=== PATIENT | male | born 1955 | race Caucasian/White ===

== ENCOUNTER → 2019-05-16 10:42 | Outpatient (BNVA) | payer MEDICARE, MEDICAID, SELFPAY | PROVIDERS: PCP Nurse Practitioner; Visit Provider Nurse Practitioner Family | DX: R06.00 Dyspnea, unspecified (principal); I51.7 Cardiomegaly | CPT/HCPCS: 71046 ==

== ENCOUNTER 2019-06-03 06:05 | Day surgery (SDC) | payer MEDICARE, MEDICAID, SELFPAY ==
--- NOTE | 2019-06-02 13:21 | P.ANES_ITS ---
Pre-Anesthetic Assessment Pre-Anesthetic Assessment: Height/Weight: Height 1.75 m Weight 176.447 kg Preop Diagnosis: Recurrent chest pain Proposed Procedure: Operation Date: 06/03/19 07:45 Proposed Procedures p EGD 49025 K21.9(Not Applicable) - Solomon Monreal MD Familial anesthetic complications: No trouble Social: Social History: No alcohol and No tobacco Exam: Pre-Anes Outpt Exam: alert, oriented x 3, clear to auscultation bilaterally and regular rate & rhythm Airway: Cervical ROM: WNL (fusion of cervical vertebrae C3-4) MP: 4 Dentition: Chipped Additional comments: missing Pulmonary: Pulmonary: Sleep apnea (CPAP) and SOB CV/HEM: CV/HEM: Arrythmia (atrial fibrillation (off eliquis since last sunday)) and HTN Comments: Cardiac work up todate has been negative : : Chronic renal failure Comments: stage III kidney disease Hepatic: Comments: fatty liver GI: Comments: esophageal ulcer hx Metabolic: Metabolic: DM and Morbid obesity Comments: thyroid mass removal in Musc/skel: Musc/skel: Lower Back Pain Neuropsych: Neuropsych: None reported Anesthetic Plan: ASA status: III Anesthesia: MAC Risk of > 500 ml blood loss (7ml/kg in children): No Other Pertinent 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
[2019-06-03] VITALS (7 sets, daily range): BP systolic 97–140; BP diastolic 76–92; PULSE 81–110; RESP 16–21; TEMP 36.4–37.2; O2SAT 94–99
[2019-06-03] MEDS: sodium chloride 0.9% 1,000 ML 30 ML IV (07:06)
--- NOTE | 2019-06-03 08:03 | PM.HPUD ---
H&P update H&P Update: DATE OF SURGERY/PROCEDURE: 06/03/19 DATE H&P PERFORMED: 05/26/19 H&P UPDATE INFORMATION: H&P completed within last 30 days and No changes to prior documentation PREOP DIAGNOSIS: Chest pain PLANNED PROCEDURE: Operation Date: 06/03/19 07:45 Proposed Procedures p EGD 77762 K21.9(Not Applicable) - Solomon Monreal MD Full H&P Medications/Allergies: Current Medications: Current Medications Generic Name Dose Route Start Last Admin Trade Name Freq PRN Reason Stop Dose Admin Sodium Chloride 1,000 mls @ 30 ml s/hr 06/03/19 06:15 06/03/19 07:06 Sodium Chloride 0.9% IV 06/04/19 06:14 30 mls/hr .Q24H NORA Administration Perinent History: Medical/Surgical History: Medical History (Updated 05/22/19 @ 20:01 by Orlando Armstrong MD) Atrial fibrillation (Acute) Diastolic heart failure (Acute) GERD (gastroesophageal reflux disease) (Acute) HTN (hypertension) (Acute) Renal insufficiency (Acute) Family History: Family History (Updated 05/26/19 @ 09:27 by MARIA VICTORIA Jc) Father Cancer Prostate Hypertension Hypercholesterolemia Heart disease Mother Hypertension Hypercholesterolemia Anesthesia complication Daughter Anesthesia complication Denies family history of Bleeding disorder Social History: Social History Smoking and tobacco status: never smoked Alcohol intake: former Lives independently: Yes Household members: spouse Marital status: Current occupational status: disabled History of recent travel: No
--- NOTE | 2019-06-03 08:35 | P.OP_ITS ---
Operative Report Date of procedure: 06/05/19 Pre-op Diagnosis: Chest pain Post-op diagnosis: other (Gastric polyps and gastritis/GERD) Procedure Done: Diagnostic EGD with biopsies Specimens removed/disposition: Gastric polyps Surgeon: Solomon Monreal Senior Mechanical Estimator: Aislinn Devi Anesthesia: General (SHAWN Romo) Estimated blood loss (mL): 2 Complications: No immediate complications Condition: stable Disposition: same day Brief History: This is a pleasant 63 years old gentleman morbidly obese with multiple medical comorbidities, originally referred to my office for bariatric s urgery, patient has been having recurrent chest pain and have exhausted most of the cardiac work-up, was seen at the office last visit to evaluate for potential EGD. Plan of care; After thorough history and physical examination and reviewing the chart, plan to perform a diagnostic esophagogastroduodenoscopy and possible biopsy in the operating room due patient's medical comorbioddities including morbid Obesity and potential airway compromise. Informed consent per chart were,Indications, risks, benefits, and alternatives were all discussed with the patient and did agree to proceed. Procedure: Patient was identified in the holding area, was taken to the OR placed first in supine position, timeout was done verifying the patient's name, date of , and procedure, all were in agreement. Patient was intubated by the MASSEUR/MASSEUSE, patient was placed in left lateral position after a bite block was placed in his mouth, started by introducing the EGD via the mouth under direct visualization, the patient was continuously monitored via used building materials yard worker, I was able to assess the esophagus stomach and duodenum till the second part, mild GERD was noticed at the GE junction GE junction at 45 cm from the incisors, gastroesophageal junction polyp was noticed biopsied but was not retrieved and 2 more polyps were noticed at the body of the stomach they were biopsied and retrieved The scope was retrieved under direct visualization and gas was deflated Patient was then extubated and transferred to recovery area in stable condition Patient tolerated the procedure well and was taken to the recovery area I was present for the whole entire procedure
--- NOTE | 2019-06-03 09:18 | SUR.PHASEI ---
0837- RECEIVED PATIENT IN PACU FROM OR VIA G[facility]OLA. RESP ARE EVEN AND NONLABORED WITH NOTED ACCESSORY MUSCLE USE AND RETRACTIONS. SIMPLE MASK APPLIED AT 6LPM, SAT 98%. HE IS AWAKE AND ALERT, FOLLOWS COMMANDS. HE DENIES PAIN OR NAUSEA. 0858- TRANSFERRED PATIENT FROM PACU TO OPS VIA GURNEY. RESP ARE EVEN AND NONLABORED. SAT 95% WITH 2L/NC, MINIMAL ACCESSORY MUSCLE USE, WHICH IS NORMAL FOR PATIENT. HE DENIES PAIN OR NAUSEA. HE CONTINUES TO EXPECTORATE CLEAR FROTHY SPUTUM. TRANSITION OF CARE TO KATLIN BERMAN
== END 2019-06-03 10:05 | disposition home or self-care (01) ==
PROVIDERS: Family Provider Nurse Practitioner Family; PCP Nurse Practitioner Family; Visit Provider Surgery
PROC: 0DJ08ZZ Inspection of Upper Intestinal Tract, Via Natural or Artificial Opening Endoscopic (ICD-10-PCS; CPT 43235; principal; 2019-06-03 07:45)
DX: R07.9 Chest pain, unspecified (principal); D13.1 Benign neoplasm of stomach; K29.70 Gastritis, unspecified, without bleeding; K21.9 Gastro-esophageal reflux disease without esophagitis; G47.30 Sleep apnea, unspecified; I48.91 Unspecified atrial fibrillation; Z79.01 Long term (current) use of anticoagulants; I10 Essential (primary) hypertension; E11.9 Type 2 diabetes mellitus without complications; E66.01 Morbid (severe) obesity due to excess calories; Z68.43 Body mass index [BMI] 50.0-59.9, adult
CPT/HCPCS: 43239; 12345; 88305; 96365; J0330; J3010; J3490; J7030

== ENCOUNTER 2019-06-17 16:35 | Inpatient (IN) | payer MEDICARE, MEDICAID, SELFPAY ==
[2019-06-17 16:49] VITALS: BMI 57.9
[2019-06-17 17:24] LABS: Glucose Point of Care 152 mg/dL (70-110)
--- NOTE | 2019-06-17 18:45 | ECG_ITS ---
Measurements Intervals [place] Rate: 89 P: IN: 0 QRS: -63 QRSD: 112 T: 62 QT: 362 QTc: 441 ATRIAL FIBRILLATION INCOMPLETE RIGHT BUNDLE BRANCH BLOCK [90+ ms QRS DURATION, TERMINAL R IN V1/V2, 40+ ms S IN I/aVL/V4/V5/V6] LEFT ANTERIOR FASCICULAR BLOCK [QRS AXIS <= -45, QR IN I, RS IN II] Compared to ECG 10/06/2017 05:41:11 Incomplete right bundle-branch block now present Sinus bradycardia no longer present Electronically Signed On 06-17-2019 20:03:24 MANAGER APPLE by Robb Banegas M.D. [email or web address]
--- NOTE | 2019-06-17 18:58 | PM.HP ---
Providers/Chief Complaint Admitting Physician: Orlando Armstrong MD Primary Care Provider: Lilian Mcintyre Chief Complaint: UNSTABLE ANGINA, ACUTE RENAL FAILURE, AFIB-RVR History of Present Illness Mauro Solis is a 63 year old male , Hypertension hyperlipidemia chronic atrial fibrillation rate controlled, diastolic dysfunction who has been suffering from chest pain for the past one year off-and-on basis. His stress test few months ago was negative. His medicine were optimized. He was treated for GERD and gastritis despite of that his symptoms are getting worse. Yesterday he presented to my clinic with worsening of chest pain upon mild to moderate exertion and shortness of breath. He has been taking nitroglycerin 2-3 times a day. He is now also experiencing chest pain radiating to both arm at rest. Heart rate is within normal limits of 70s to 80s. He continues to be in A. fib.He has history of chronic kidney disease stage III. Baseline creatinine is around 1.5. Yesterday we discussed regarding repeating the stress test but patient is not willing to repeat NIDD with it we have maximize medical management so far. I would like to proceed with angiogram now. I will admit him to the hospital directly. I will check his chem 7. He will be given IV fluid overnight anticoagulation will be on hold for possible angiogram tomorrow for worsening of angina. Review of Systems Const: Denies: fever or chills Card: Reports: chest pain Resp: Reports: shortness of breath GI: Denies: abdominal pain, nausea or vomiting Neuro: Denies: headache or numbness in extremities Medications/Allergies Allergies Allergy/AdvReac Type Severity Reaction Status Date / Time linaclotide [From Linzess] Allergy Unknown Hypertension; Verified 06/13/19 11:21 Afib metformin Allergy Unknown ADR-Diarrhe Verified 06/13/19 11:21 a naproxen Allergy Unknown Affects Verified 06/13/19 11:21 kidney fuctions Kkaqudx-Aeg-Aoi Reductase Allergy Unknown Severe Verified 06/13/19 11:21 Inhibitor Muscle Pain Sulfa (Sulfonamide Allergy Unknown ADR-Itching Verified 06/13/19 11:21 Antibiotics) baclofen Allergy Affects Verified 06/13/19 11:21 kidney fuctions NSAIDS (Non-Steroidal Allergy Affects Verified 06/13/19 11:21 Anti-Inflamma Kidney functions benzonatate AdvReac Unknown Diarrhea Verified 06/13/19 11:21 PFSH Acute PFSH: Statuses (acute, chronic, etc) shown below reflect problem list status as previously entered and may not be historically accurate Medical History Atrial fibrillation (Acute) Diastolic heart failure (Acute) GERD (gastroesophageal reflux disease) (Acute) HTN (hypertension) (Acute) Renal insufficiency (Acute) Surgical History History of esophagogastroduodenoscopy (EGD) (Acute) Family History Father Cancer Prostate Hypertension Hypercholesterolemia Heart disease Mother Hypertension Hypercholesterolemia Anesthesia complication Daughter Anesthesia complication Denies family history of Bleeding disorder Social History Smoking and tobacco status: never smoked Alcohol intake: former Lives independently: Yes Household members: spouse Marital status: Current occupational status: disabled History of recent travel: No Vitals/I&O/Wt Weight last 48 hrs Weight 392 lb 6.4 oz Physical Exam Narrative: EXAM NARRATIVE: GENERAL: Patient is alert, awake and oriented x3. Patient is complaining of chest pain NECK: No jugular vein distension. HEENT: No cyanosis. No icterus. No pallor. HEART: Regularly irregular S1 and S2. No murmur, rub or gallop. LUNGS: Clear to auscultate bilaterally. ABDOMEN: Soft, nontender and nondistended. Positive bowel sounds. No guarding, rebound or tenderness. CENTRAL NERVOUS SYSTEM: Grossly nonfocal. EXTREMITIES: Lower extremities with 1+ edema bilaterally. Pulses palpable in the lower extremities, both dorsalis pedis and posterior tibial. Data : 06/17/19 19:18 06/17/19 19:18 EKG 1: My Interpretation: ATRIAL FIBRILLATION INCOMPLETE RIGHT BUNDLE BRANCH BLOCK [90+ ms QRS DURATION, TERMINAL R IN V1/V2, 40+ ms S IN I/aVL/V4/V5/V6] LEFT ANTERIOR FASCICULAR BLOCK [QRS AXIS <= -45, QR IN I, RS IN II] Compared to ECG 10/06/2017 05:41:11 Incomplete right bundle-branch block now present Sinus bradycardia no longer present A&P Assessment and plan (1) Chest pain: Patient is moderate risk of Obstructive coronary disease. He has chest pain going on for last many months. In the past he has a negative stress test. He was treated for GERD and gastritis. He was treated for muscle spasm. His medications were optimized in terms of beta nessa and isosorbide mononitrate. Despite of all these millimeters his chest pains are getting worse they are getting relief with nitroglycerin sublingual. He has been taking nitroglycerin 2-3 times a day. We therefore decided to proceed with coronary angiogram. Patient has been explained all risks benefits and alternative for the procedure including contrast induced nephropathy. His baseline creatinine is 1.5. He will be admitted to the hospital for IV fluid tonight. Status: Acute Qualifiers: Chest pain type: unspecified Qualified Code(s): R07.9 - Chest pain, unspecified Code(s): R07.9 - Chest pain, unspecified (2) GERD (gastroesophageal reflux disease): Continue Protonix Status: Acute Code(s): K21.9 - Gastro-esophageal reflux disease without esophagitis (3) Renal insufficiency: Patient baseline creatinine is 1.5. IV fluid will be started tonight 10-12 hour before coronary angiogram. Patient has been discussed in detail regards contrast induced nephropathy 20% chance of dialysis transient and permanent. He would like to proceed with angiogram since he is hurting in the chest and scared that he is going to end up in a heart attack. Status: Acute Code(s): N28.9 - Disorder of kidney and ureter, unspecified (4) Diastolic heart failure: Appeared to be well compensated continue medicine Status: Acute Code(s): I50.30 - Unspecified diastolic (congestive) heart failure (5) HTN (hypertension): Reasonably well controlled Status: Acute Code(s): I10 - Essential (primary) hypertension (6) Atrial fibrillation: Patient is rate controlled on anticoagulation we will hold Eliquis I will give him Lovenox in the hospital Status: Acute Code(s): I48.91 - Unspecified atrial fibrillation Attestations Medical Necessity Statement*: I'm expecting his stay to cross more than 2 midnights Coding Level of Care Code New Pt Acute Hand Quilter [facility] Patient Type New History Detailed Exam Detailed Medical Decision Making Moderate Complexity Diagnoses Chest pain R07.9 Chest pain type: unspecified GERD (gastroesophageal reflux disease) K21.9 Renal insufficiency N28.9 Diastolic heart failure I50.30 HTN (hypertension) I10 Atrial fibrillation I48.91
[2019-06-17] MEDS: sodium chloride 0.9% 1,000 ML 100 ML IV (19:17)
[2019-06-17] MEDS: nitroglycerin 0.4 mg sublingual Tablet SUBLINGUAL (19:18)
[2019-06-17 19:20] VITALS: BP 132/82; PULSE 79; RESP 22; TEMP 36.8; O2SAT 94
[2019-06-17 19:24] VITALS: BP 127/79; PULSE 76; RESP 20; TEMP 36.4; O2SAT 94
[2019-06-17 19:37] LABS: Basophils # 0.1 10^3/uL (0.0-0.1); Basophils % 0.5 %; Eosinophils # 0.1 10^3/uL (0.0-0.8); Hematocrit 38.7 % (42.0-52.0); Hemoglobin 12.6 g/dL (11.7-16.6); Lymphocytes # 2.2 10^3/uL (0.8-4.8); Lymphocytes % 23.8 %; Mean Corpuscular HGB Conc 32.6 g/dL (30.0-36.0); Mean Corpuscular Hemoglobin 29.3 pg (28.0-34.0); Mean Platelet Volume 9.9 fL (7.4-10.4); Monocytes # 0.6 10^3/uL (0.2-0.9); Monocytes % 6.6 %; Neutrophils # 6.3 10^3/uL (1.8-7.7); Neutrophils % 67.6 %; Nucleated Red Blood Cells % 0 %; Platelet Count 222 10^3/cmm (130-400); White Blood Count 9.4 10^3/uL (4.0-10.0)
[2019-06-17 19:52] LABS: Anion Gap 19.9 (5-19); Blood Urea Nitrogen 23 mg/dL (8-23); Calcium 9.8 mg/dL (8.5-10.5); Carbon Dioxide 23 mmol/L (22-29); Chloride 99 mmol/L (98-107); Glomerular Filtration Rate 51.2 mL/min (90-130); Glucose 208 mg/dL (65-115); Osmolality Calculated 289 mOsm/kg (285-295); Potassium 3.9 mmol/L (3.5-5.1); Sodium 138 mmol/L (136-145)
[2019-06-17 19:57] LABS: INR 1.13 (0.8-1.2)
[2019-06-17 19:58] LABS: Partial Thromboplastin Time 33.5 SECONDS (23.9-36.7)
[2019-06-17] MEDS: enoxaparin 100 mg/mL Syringe 150 MG SUBCUT (20:41)
[2019-06-17] MEDS: nitroglycerin 1 gm/inch oint Pkt 1 INCH TOPICAL (20:41)
--- NOTE | 2019-06-17 21:51 | PC.NURSE ---
pt states that he has a chronic pressure ulcer on his buttocks that he did not acquire while in the hospital. pt refused me to assess it.
[2019-06-17 23:32] VITALS: PULSE 86; RESP 16; O2SAT 94
[2019-06-18] VITALS (27 sets, daily range): BP systolic 98–163; BP diastolic 60–117; PULSE 82–105; RESP 14–36; TEMP 36.9–37.2; O2SAT 93–96
[2019-06-18] MEDS: sodium chloride 0.9% 1,000 ML 100 ML IV (06:16)
[2019-06-18] MEDS: metoprolol tartrate 25 mg Tablet 12.5 MG PO (06:16)
[2019-06-18] MEDS: nitroglycerin 1 gm/inch oint Pkt 1 INCH TOPICAL (07:43)
[2019-06-18] MEDS: albuterol 8 gm MDI 2 PUFF INHALATION (08:06)
[2019-06-18 08:53] LABS: Blood Urea Nitrogen 20 mg/dL (8-23); Calcium 9.5 mg/dL (8.5-10.5); Carbon Dioxide 25 mmol/L (22-29); Chloride 101 mmol/L (98-107); Glomerular Filtration Rate 51.2 mL/min (90-130); Glucose 195 mg/dL (65-115); Osmolality Calculated 290 mOsm/kg (285-295); Sodium 139 mmol/L (136-145)
[2019-06-18] MEDS: clopidogrel 300 mg Tablet 600 MG PO (09:16)
--- NOTE | 2019-06-18 12:33 | PC.NURSE ---
PATIENT TAKEN TO PAINTER HELPER SPRAY AT THIS TIME.
--- NOTE | 2019-06-18 12:34 | XACV_ITS ---
Exam Room: [facility] Ht: 175 cm Wt: 87 kg BSA: 2.08 m2 Gender: Male : 1955 Any Known Allergies: Other Exam Priority: Routine Procedure(s): Procedure Description: Diagnostic procedure Procedure Description: Coronary Angiography Diagnostic Cath Status: Elective Diagnostic Findings LM has 0% stenosis. CX has 0% stenosis. RCA has 0% stenosis. pLAD to mLAD: Mild 20% stenosis, JAYNE: 3 flow. Coronary angiography shows right dominance. PCI Status: Elective PCI Indication: New Onset Angina <= 2 months Conclusions There is mild coronary artery disease with one vessel disease. Reason for consultation: Worsening of heart failure, worsening of shortness of breath and chest pain despite of optimization of medical regimen. Recommendations Continue current medical management and risk factor modification. Diagnostic RX Recommendation: medical therapy and/or counseling Clinical Evaluation EBL: 5mL-10mL Procedural Details Procedure Consent Obtained. Pre-Procedure Time Out. Identified patient by full name and date of as verbalized by the patient/guarantor. Does the consent match the physician's order: Yes. Accurate & Complete Informed Consent: Yes. Inpatient/Outpatient History & Physical on Chart: Yes. If H&P is completed, is and addenduem needed: No; If yes, is the addendum complete: N/A. Visualize and Verify Site with Patient/Guarantor: N/A. Relevant Radiology Images available: Yes. Pre-op teaching completed and patient verbalized understanding. The risks, benefits, and alternatives of sedation and/or procedure were discussed by physician. The patient agrees to continue. Procedure started. Correct patient, site and procedure confirmed by cath team. Current diagnosis: Chest Pain. PERRLA. Strong, equal hand gem expert bilaterally. Lungs clear x 5 lobes. IV Site on Arrival: 20 gauge in the right anticubital. IV Fluids: 0.9% NaCl at KVO. 0 mL infused prior to kiln labourer. Pre Procedural Pulses: bilateral dorsalis pedis was 3+. Pre Procedural Pulses: bilateral posterior tibial was 3+. Pre Procedural Pulses: bilateral radial was 3+. Oxygen started at 2liters/min via nasal canula. bilateral groins was prepped with chloroprep then draped in the usual sterile fashion. right radial was prepped with chloroprep then draped in the usual sterile fashion. Physician notified. Baseline sample Acquired. HR: 91 BPM. Equipment: 6F - Radial. Shop Hers Manifold Kit Model BT 2000. Cardiac Cath Pack. Heparinized Saline (2 units/mL), 1000 mL bag. Physician arrived. Physician scrubbed in. Immediate Pre-Procedure Time Out. Correct Patient: Yes; Correct Procedure: Yes; Correct Site: Yes; Correct Patient Position: Yes; Correct Supplies: Yes; Dried Flammable Prep: Yes; Blood Products Available: No;. Lidocaine 1% infiltrated to the right radial. Arterial access obtained. A 5 libyan TIG catheter in over wire. Multiple views taken of left coronary artery. Catheter redirected to the RCA. Catheter out. A 5 libyan JR4 catheter in over wire. Multiple views taken of right coronary artery. TR band placed. Hemostasis obtained. Post Procedure: Pulses reassessed and unchanged. PERRLA. Strong, equal hand gem expert bilaterally. No VTE prophylaxis required. Contrast type used: Visipaque 320 mgI/mL, 500 mL bottle. Post-op diagnosis: Normal Coronaries. Complications: None. Estimated blood loss: 5mL-10mL. A TR Band was successful obtaining hemostatsis at the Right Radial artery insertion site. Vital chart was stopped. Total IV fluids: 43.8 mL. Medication's Wasted: Lidocaine 1% = 18 ml. Medication's Wasted: Nitro = 49.8 mg. Medication's Wasted: Heparin = 1000 units mg. Medication's Wasted: Other = Fentanyl 25mcg. Procedure completed. Patient transferred by wheelchair to CPRU. Site: Right Radial artery Sheath Size: 6 Fr Hemostasis Method: TR Band Hemostasis Success: Successful Procedure Medications Start: 12:46 PM Stop: 12:46 PM Medication: Fentanyl Amount: 50 mcg Route: I.V. Start: 12:46 PM Stop: 12:46 PM Medication: Versed Amount: 1 mg Route: I.V. Start: 12:54 PM Stop: 12:54 PM Medication: Versed 1 mg and Fentanyl 25 mcg Amount: 1 Route: I.V. Start: 12:54 PM Stop: 12:54 PM Medication: Lopressor (metoprolol) Amount: 5 mg Route: I.V. Start: 12:55 PM Stop: 12:55 PM Medication: Nitrogylcerin Amount: 200 mcg Route: I.A. I, the attending physician, have reviewed and verified all procedure medications. Yes, all medications given per verbal order History/Risk Factors Hypertension: Yes Dyslipidemia: Yes Peripheral Arterial Disease (PAD): No Myocardial Infarction ([place]): No Obesity: Yes Renal Disease: Yes Tobacco Use: Current/Recent(w/in 1 year) Prior Interventions Valve Surgery: No Report Signatures Finalized by:Orlando Armstrong MD on 07/02/2019 7:34:03 PM
--- NOTE | 2019-06-18 13:30 | PC.NURSE ---
Patient to CPRU room 3 via wheelchair. Patient placed in the bed and hooked up to the monitor. Family at bedside. The patient reports no pain and the right radial site has no bleeding or swelling noted.
--- NOTE | 2019-06-18 14:10 | PC.NURSE ---
Patient was given a cardiac lunch.
--- NOTE | 2019-06-18 14:55 | DCPLANNER ---
*IMM* Patient received updated Important Message from Medicare. Copy placed in room.
--- NOTE | 2019-06-18 14:56 | PC.NURSE ---
Report given to KATLIN CASILLAS. Patient to be transported to CSU room 101 now.
[2019-06-18] MEDS: verapamil ER 240 mg Tablet 120 MG PO (15:29)
[2019-06-18] MEDS: metoprolol tartrate 50 mg Tablet PO (18:02)
[2019-06-18] MEDS: pantoprazole DR 40 mg Tablet PO (18:02)
[2019-06-18] MEDS: isosorbide mononitrate ER 30 mg Tablet PO (18:03)
--- NOTE | 2019-06-18 20:04 | P.PN_ITS ---
Subjective Subjective: Interval history: Status post coronary angiogram which turned out to be normal. Patient heart rate is not under control disease in A. fib with RVR. Vitals/I&O/Wt Last Vital Signs Temp 98.6 F 06/18/19 13:55 Pulse 91 06/18/19 18:15 Resp 23 H 06/18/19 18:15 BP 123/84 06/18/19 18:15 Pulse Ox 96 06/18/19 18:00 06/18/19 06/18/19 06/18/19 06:59 14:59 22:59 Output Total 750 / 750 Balance -750 / -720 Weight last 48 hrs Weight 392 lb 6.4 oz Physical Exam Narrative: EXAM NARRATIVE: GENERAL: Patient is alert, awake and oriented x3. NECK: No jugular vein distension. HEENT: No cyanosis. No icterus. No pallor. HEART: Irregularly irregular S1 and S2. No murmur, rub or gallop. LUNGS: Clear to auscultate bilaterally. ABDOMEN: Soft, nontender and nondistended. Positive bowel sounds. No guarding, rebound or tenderness. CENTRAL NERVOUS SYSTEM: Grossly nonfocal. EXTREMITIES: Lower extremities without edema bilaterally. Data : 06/17/19 19:18 06/18/19 08:20 A&P Assessment and plan (1) Chest pain: Patient underwent coronary angiogram that turned out to be normal. Most likely pain is atypical and secondary GERD or musculoskeletal Status: Acute Qualifiers: Chest pain type: unspecified Qualified Code(s): R07.9 - Chest pain, unspecified Code(s): R07.9 - Chest pain, unspecified (2) Renal insufficiency: Creatinine has improved after IV hydration. Continue to monitor post catheterization Status: Acute Code(s): N28.9 - Disorder of kidney and ureter, unspecified (3) Diastolic heart failure: Appeared to be well compensated. Status: Acute Code(s): I50.30 - Unspecified diastolic (congestive) heart failure (4) HTN (hypertension): Well controlled. Status: Acute Code(s): I10 - Essential (primary) hypertension (5) Atrial fibrillation: Heart rate is not under control whenever patient walks heart rate jumps up to 160s. I will add verapamil to his regimen. Continue Xarelto. Status: Acute Code(s): I48.91 - Unspecified atrial fibrillation Attestations Medical Necessity Statement*: Patient requires continuation hospitalization for A. fib RVR and optimization of medicine Coding Level of Care Code Acute Psychological Tests Sales Agent for Chg Fwd History Expanded Problem Focused Exam Expanded Problem Focused Medical Decision Making Moderate Complexity Diagnoses Chest pain R07.9 Chest pain type: unspecified Renal insufficiency N28.9 Diastolic heart failure I50.30 HTN (hypertension) I10 Atrial fibrillation I48.91
[2019-06-18] MEDS: rivaroxaban 10 mg Tablet 20 MG PO (20:29)
[2019-06-19] VITALS (7 sets, daily range): BP systolic 122–155; BP diastolic 70–101; PULSE 72–104; RESP 16–31; TEMP 36.6–36.8; O2SAT 93–95
[2019-06-19] MEDS: fluticasone nasal spray 16gm Btl 2 SPRAY INTRANASAL (08:44)
[2019-06-19] MEDS: rivaroxaban 10 mg Tablet 20 MG PO (08:47)
[2019-06-19] MEDS: fenofibrate 145 mg Tablet PO (08:47)
[2019-06-19] MEDS: pantoprazole DR 40 mg Tablet PO ×2 (08:47→17:48)
[2019-06-19] MEDS: verapamil ER 180 mg Tablet PO (08:48)
[2019-06-19] MEDS: metoprolol tartrate 50 mg Tablet PO ×2 (08:48→20:19)
[2019-06-19 09:03] LABS: Blood Urea Nitrogen 14 mg/dL (8-23); Calcium 9.8 mg/dL (8.5-10.5); Carbon Dioxide 25 mmol/L (22-29); Chloride 103 mmol/L (98-107); Glomerular Filtration Rate 55.8 mL/min (90-130); Glucose 206 mg/dL (65-115); Osmolality Calculated 292 mOsm/kg (285-295); Sodium 140 mmol/L (136-145)
--- NOTE | 2019-06-19 12:28 | PC.CHAP ---
Pastoral Care Encounter/Spiritual Assessment Type of Contact [x] Declined pain medicine physician visit [] Patient/Family/Request visit [] Outpatient visit [] Follow-up visit [] Physician referral [] Code/Alert [] Routine visit [] Staff referral [] Actively dying [] Patient sleeping [] Family support [] [] Out of room [] Palliative care [] [] Receiving care in room [] Pre-surgical visit [] Trauma [] Long length of stay [] ICU visit [] Other: Relational/Emotional Strength [] Patient feels connected with others/family/visitors/staff [] Distress [] Loneliness/isolation [] Abandonment Spirituality of Patient [] Person of Alexandra [] Attends Advent of their Alexandra [] Believes in Prayer [] Reads Bible or Protestant materials [] There are Spiritual issues to be addressed Lapping Machine Set Up Operator Interventions [] Prayer [] Active listening [] Non-anxious presence [] Spiritual/emotional support [] Crisis/trauma care [] Spiritual counseling [] Bereavement support [] Provided bereavement packet [] Provided Bible/devotional materials [] Provided toy/stuffed animal, coloring book to patient or family member [] Provided Communion [] Anointing/[place] [] Salvation [] Completed spiritual assessment [] Other: Impact on Illness or Injury [] Angry [] Fearful [] Anxious [] Often cries [] Exhaustion [] Unable to work [] Unable to attend anabaptism [] Unable to walk/stand [] Unable to read [] Unable to drive [] Unable to eat/drink [] Unable to sleep [] Unable to be with family [] Patient intubated [] Other: Summary Patient identified as being Jehova Witness and declined [place] visit. Time spent with patient 2-Minutes
[2019-06-19] MEDS: TRAMadol 50 mg Tablet PO (15:17)
--- NOTE | 2019-06-19 23:13 | PC.NURSE ---
THERE IS A PRESSURE DRESSING TO THE PT RIGHT WRIST. DRESSING IS C/D/I. PT HAS 0 C/O PAIN AT THE SITE. WILL CONTINUE TO MONITOR.
[2019-06-19] MEDS: sodium chloride 0.9% 1,000 ML 100 ML IV (23:19)
[2019-06-20] VITALS (8 sets, daily range): BP systolic 122–163; BP diastolic 82–98; PULSE 59–114; RESP 16–28; TEMP 36.7–36.8; O2SAT 94–98
--- NOTE | 2019-06-20 08:18 | DCPLANNER ---
Pg 2 of IM explained to and signed by pt. He is familiar with this. Copy provided.
[2019-06-20] MEDS: sodium chloride 0.9% 1,000 ML 100 ML IV (10:22)
[2019-06-20] MEDS: verapamil ER 240 mg Tablet PO (10:23)
[2019-06-20] MEDS: fenofibrate 145 mg Tablet PO (10:24)
[2019-06-20] MEDS: metoprolol tartrate 50 mg Tablet 75 MG PO ×2 (10:24→20:38)
[2019-06-20] MEDS: pantoprazole DR 40 mg Tablet PO ×2 (10:24→18:33)
[2019-06-20] MEDS: rivaroxaban 10 mg Tablet 20 MG PO (10:25)
[2019-06-20] MEDS: allopurinol 300 mg Tablet 450 MG PO (10:26)
--- NOTE | 2019-06-20 14:52 | PC.NURSE ---
PATIENT AMBULATED IN HALLWAY ; HEART RATE BETWEEN LOW 90S AND LOW 100S ; DR LEGGETT NOTIFIED
--- NOTE | 2019-06-20 15:16 | PC.CHAP ---
Pastoral Care Encounter/Spiritual Assessment Type of Contact [] Declined cord tire builder visit [] Patient/Family/Request visit [] Outpatient visit [] Follow-up visit [] Physician referral [] Code/Alert [x] Routine visit [] Staff referral [] Actively dying [] Patient sleeping [x] Family support [] [] Out of room [] Palliative care [] [] Receiving care in room [] Pre-surgical visit [] Trauma [x] Long length of stay [] ICU visit [] Other: Relational/Emotional Strength [] Patient feels connected with others/family/visitors/staff [x] Distress [] Loneliness/isolation [] Abandonment Spirituality of Patient [x] Person of Alexandra [] Attends Jehovah'S Witness of their Alexandra [x] Believes in Prayer [] Reads Bible or Adventism materials [x] There are Spiritual issues to be addressed 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 Interventions [] Prayer [x] Active listening [x] Non-anxious presence [x] Spiritual/emotional support [] Crisis/trauma care [x] Spiritual counseling [] Bereavement support [] Provided bereavement packet [] Provided Bible/devotional materials [] Provided toy/stuffed animal, coloring book to patient or family member [] Provided Communion [] Anointing/Tie Siding [] Salvation [x] Completed spiritual assessment [] Other: Impact on Illness or Injury [] Angry [x] Fearful [x] Anxious [] Often cries [x] Exhaustion [] Unable to work [] Unable to attend christianity [] Unable to walk/stand [] Unable to read [x] Unable to drive [] Unable to eat/drink [] Unable to sleep [] Unable to be with family [] Patient intubated [] Other: Summary Communication/ open / knows what is happening /Happy /understands what needs to be done Time spent with patient 120 min
[2019-06-20] MEDS: FUROsemide 10 mg/mL SDV 4mL 40 MG IVP (16:02)
--- NOTE | 2019-06-20 19:22 | PC.NURSE ---
CALLED DR LEGGETT TO CLARIFY THAT HE WANTED THE NS STOPPED. DR LEGGETT DID WANT THE NS STOPPED AND HE REMINDED ME THAT HE PUT IN ORDERS FOR LASIX 40MG IVP. ORDERS ARE IN. CHARGE NURSE NOTIFIED.
--- NOTE | 2019-06-20 19:52 | P.PN_ITS ---
Subjective Subjective: Interval history: Heart rate is not optimally controlled . Become short of breath when he walks. Heart rate jumps up. Vitals/I&O/Wt Last Vital Signs Temp 98.1 F 06/20/19 04:00 Pulse 68 06/20/19 19:47 Resp 18 06/20/19 19:47 BP 122/82 06/20/19 15:34 Pulse Ox 97 06/20/19 19:47 06/20/19 06/20/19 06/20/19 06:59 14:59 22:59 Intake Total 100 / 900 1480 / 1480 808.333 / 2288.333 Balance 100 / 900 1480 / 1480 808.333 / 2288.333 Weight last 48 hrs Weight 397 lb 1.6 oz Weight 396 lb 14.4 oz Physical Exam Narrative: EXAM NARRATIVE: GENERAL: Patient is alert, awake and oriented x3. NECK: No jugular vein distension. HEENT: No cyanosis. No icterus. No pallor. HEART: Irregularly irregular S1 and S2. No murmur, rub or gallop. LUNGS: Clear to auscultate bilaterally. ABDOMEN: Soft, nontender and nondistended. Positive bowel sounds. No guarding, rebound or tenderness. CENTRAL NERVOUS SYSTEM: Grossly nonfocal. EXTREMITIES: Lower extremities without edema bilaterally. Data : 06/17/19 19:18 06/19/19 08:28 A&P Assessment and plan (1) Atrial fibrillation: I will increase Verapamil and optimize metoprolol for rate control. Continue Xarelto Status: Acute Qualifiers: Atrial fibrillation type: other persistent Qualified Code(s): I48.19 - Other persistent atrial fibrillation Code(s): I48.91 - Unspecified atrial fibrillation (2) Chest pain: Patient underwent coronary angiogram that turned out to be normal. Most likely pain is atypical and secondary GERD or musculoskeletal Status: Acute Qualifiers: Chest pain type: unspecified Qualified Code(s): R07.9 - Chest pain, unspecified Code(s): R07.9 - Chest pain, unspecified (3) Renal insufficiency: Creatinine has improved after IV hydration. Continue to monitor post catheterization Status: Acute Code(s): N28.9 - Disorder of kidney and ureter, unspecified (4) Diastolic heart failure: Appeared to be well compensated. Status: Acute Qualifiers: Heart failure chronicity: chronic Qualified Code(s): I50.32 - Chronic diastolic (congestive) heart failure Code(s): I50.30 - Unspecified diastolic (congestive) heart failure (5) HTN (hypertension): Well controlled. Status: Deleted Code(s): I10 - Essential (primary) hypertension Attestations Medical Necessity Statement*: Patient requires continuation hospitalization for A. fib RVR and optimization of medicine to control heart rate. 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
--- NOTE | 2019-06-20 19:55 | P.PN_ITS ---
Subjective Subjective: Interval history: Heart rate is slightly improved however still jumps up when he walks. He appeared to be related to volume overloaded as well Medications: Reviewed: Yes Vitals/I&O/Wt Last Vital Signs Temp 98.1 F 06/20/19 04:00 Pulse 68 06/20/19 19:47 Resp 18 06/20/19 19:47 BP 122/82 06/20/19 15:34 Pulse Ox 97 06/20/19 19:47 06/20/19 06/20/19 06/20/19 06:59 14:59 22:59 Intake Total 100 / 900 1480 / 1480 808.333 / 2288.333 Balance 100 / 900 1480 / 1480 808.333 / 2288.333 Weight last 48 hrs Weight 397 lb 1.6 oz Weight 396 lb 14.4 oz Physical Exam Narrative: EXAM NARRATIVE: GENERAL: Patient is alert, awake and oriented x3. NECK: No jugular vein distension. HEENT: No cyanosis. No icterus. No pallor. HEART: Irregularly irregular S1 and S2. No murmur, rub or gallop. LUNGS: Clear to auscultate bilaterally. ABDOMEN: Soft, nontender and nondistended. Positive bowel sounds. No guarding, rebound or tenderness. CENTRAL NERVOUS SYSTEM: Grossly nonfocal. EXTREMITIES: Lower extremities without edema bilaterally. Data : 06/17/19 19:18 06/19/19 08:28 A&P Assessment and plan (1) Atrial fibrillation: I will increase Verapamil to 240 mg to 75 mg twice a day. Continue Xarelto Status: Acute Qualifiers: Atrial fibrillation type: other persistent Qualified Code(s): I48.19 - Other persistent atrial fibrillation Code(s): I48.91 - Unspecified atrial fibrillation (2) Chest pain: Patient underwent coronary angiogram that turned out to be normal. Most likely pain is atypical and secondary GERD or musculoskeletal Status: Acute Qualifiers: Chest pain type: unspecified Qualified Code(s): R07.9 - Chest pain, unspecified Code(s): R07.9 - Chest pain, unspecified (3) Renal insufficiency: Creatinine has improved after IV hydration. Continue to monitor post catheterization Status: Acute Code(s): N28.9 - Disorder of kidney and ureter, unspecified (4) Diastolic heart failure: Patient appeared to be in slightly decompensated diastolic heart failure I will give him IV Lasix. IV fluid will be stopped. Status: Acute Qualifiers: Heart failure chronicity: chronic Qualified Code(s): I50.32 - Chronic diastolic (congestive) heart failure Code(s): I50.30 - Unspecified diastolic (congestive) heart failure (5) HTN (hypertension): Well controlled. Status: Deleted Code(s): I10 - Essential (primary) hypertension Attestations Medical Necessity Statement*: Patient requires continuation of hospitalization for above defined care. Patient requires optimization of medicine for A. fib RVR Coding Level of Care Code Established Pt Acute Director Of Strategic Partnerships for Chg Fwd Patient Type Established History Expanded Problem Focused Exam Expanded Problem Focused Medical Decision Making Moderate Complexity Diagnoses Atrial fibrillation I48.19 Atrial fibrillation type: other persistent Chest pain R07.9 Chest pain type: unspecified Renal insufficiency N28.9 Diastolic heart failure I50.32 Heart failure chronicity: chronic HTN (hypertension) I10
[2019-06-21] VITALS: BP 134/98; PULSE 70; RESP 18; TEMP 36.7; O2SAT 95
--- NOTE | 2019-06-21 00:49 | PC.NURSE ---
THERE IS A PRESSURE DRESSING TO THE PT RIGHT WRIST. DRESSING IS C/D/I. PT HAS 0 C/O PAIN AT THE SITE. WILL CONTINUE TO MONITOR.
[2019-06-21 04:00] VITALS: BP 134/79; PULSE 76; RESP 25; TEMP 36.8; O2SAT 94
[2019-06-21] MEDS: FUROsemide 10 mg/mL SDV 4mL 40 MG IVP (04:40)
[2019-06-21 07:12] VITALS: BP 132/92; PULSE 79; RESP 21; O2SAT 94
[2019-06-21 08:33] VITALS: PULSE 81; RESP 18; O2SAT 95
[2019-06-21] MEDS: fenofibrate 145 mg Tablet PO (09:25)
[2019-06-21] MEDS: pantoprazole DR 40 mg Tablet PO (09:25)
[2019-06-21] MEDS: rivaroxaban 10 mg Tablet 20 MG PO (09:25)
[2019-06-21] MEDS: allopurinol 300 mg Tablet 450 MG PO (09:26)
[2019-06-21] MEDS: metoprolol tartrate 50 mg Tablet 75 MG PO (09:26)
[2019-06-21] MEDS: verapamil ER 240 mg Tablet PO (09:26)
[2019-06-21] MEDS: fluticasone nasal spray 16gm Btl 2 SPRAY INTRANASAL (09:33)
--- NOTE | 2019-06-21 10:20 | PM.DCS ---
Discharge Providers Date of Admission: 06/17/19 16:35 Date of Discharge: June 21, 2019 Attending Provider at Admission: Orlando Armstrong MD Attending Provider at Discharge: Orlando Armstrong MD Primary Care Provider: Lilian Mcintyre Diagnoses at Discharge Discharge Diagnosis (1) Atrial fibrillation: Status: Acute Problem details: Rate controlled on anticoagulation now Qualifiers: Atrial fibrillation type: other persistent Qualified Code(s): I48.19 - Other persistent atrial fibrillation (2) Chest pain: Status: Acute Problem details: Patient underwent coronary angiogram which was normal Qualifiers: Chest pain type: unspecified Qualified Code(s): R07.9 - Chest pain, unspecified (3) Renal insufficiency: Status: Acute Problem details: Improved after IV fluid (4) Diastolic heart failure: Status: Acute Problem details: Compensated after IV diuretics Qualifiers: Heart failure chronicity: chronic Qualified Code(s): I50.32 - Chronic diastolic (congestive) heart failure (5) HTN (hypertension): Status: Deleted Problem details: Controlled after optimization of medicine Reason for Visit Reason for Visit: Reason For Visit: UNSTABLE ANGINA, ACUTE RENAL FAILURE, AFIB-RVR Hospital Course Discharge Summary: 63-year-old male past medical history significant for morbid obesity, history of atrial fibrillation, hypertension, chronic kidney disease stage III underwent coronary angiogram after IV hydration for unstable angina-like picture. Coronaries were found to be normal. Atrial fibrillation was not not under control it was one of the reason he was feeling chest pressure and shortness of breath. Patient was started on verapamil amlodipine was discontinued and beta-nessa was also increased. Today his heart rate stays in the 70s to 80s. He is on Xarelto. He is being discharged home. He has been advised to take 40 mg of Lasix twice daily for 2 days and then go back to 40 mg once a day. He has been advised to stop by my office on Sunday for EKG. He will be seen in my clinic with Alanna De La Torre in 7 days and myself in 3 months or earlier if needed. Physical Exam Narrative: EXAM NARRATIVE: GENERAL: Patient is alert, awake and oriented x3. NECK: No jugular vein distension. HEENT: No cyanosis. No icterus. No pallor. HEART: Irregularly irregular S1 and S2. No murmur, rub or gallop. LUNGS: Clear to auscultate bilaterally. ABDOMEN: Soft, nontender and nondistended. Positive bowel sounds. No guarding, rebound or tenderness. CENTRAL NERVOUS SYSTEM: Grossly nonfocal. EXTREMITIES: Lower extremities without edema bilaterally. 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 Routin e Exams 06/18/19 12:34 Taken Vitals: Last Vital Signs Temp 98.3 F 06/21/19 04:00 Pulse 81 06/21/19 08:33 Resp 18 06/21/19 08:33 BP 132/92 06/21/19 07:12 Pulse Ox 95 06/21/19 08:33 Discharge Plan Discharge Patient Disposition: Home, Self-Care Condition: Stable Prescriptions: New verapamil 240 mg Tablet Extended Release 240 mg PO DAILY Qty: 30 RF: 3 Xarelto 10 mg Tablet 20 mg PO DAILY Qty: 90 RF: 3 Continued colchicine 0.6 mg capsule 0.6 mg PO DAILY PRN (Reason: joint pain) RF: 0 ammonium lactate [AmLactin] 12 % lotion 1 applic TOPICAL DAILY PRN (Reason: unknown) RF: 0 fenofibrate nanocrystallized 145 mg tablet 145 mg PO DAILY RF: 0 fluticasone propionate [Allergy Relief (fluticasone)] 50 mcg/actuation spray,suspension 2 spray INTRANASAL DAILY RF: 0 metoprolol tartrate 50 mg tablet 75 mg PO BID RF: 0 spironolactone 25 mg tablet 12.5 mg PO DAILY RF: 0 tramadol 50 mg tablet 50 mg PO PRN PRN (Reason: Pain (Scale Score 4-6)) RF: 0 albuterol sulfate [Ventolin HFA] 90 mcg/actuation HFA aerosol inhaler 2 puff INHALATION Q6H PRN (Reason: Cough) RF: 0 acyclovir 5 % ointment See Rx Instructions .ROUTE .COMPLEX RF: 0 furosemide [Lasix] 40 mg tablet 40 mg PO DAILY RF: 0 potassium chloride 20 mEq tablet extended release 20 meq PO DAILY RF: 0 ergocalciferol (vitamin D2) 50,000 unit capsule 50,000 unit PO .monthly RF: 0 losartan 50 mg tablet 50 mg PO DAILY RF: 0 nitroglycerin [Nitrostat] 0.4 mg tablet, sublingual 0.4 mg SUBLINGUAL DIRECTED 30 Days Qty: 25 RF: 6 isosorbide mononitrate 30 mg tablet extended release 24 hr 30 mg PO BID 30 Days Qty: 60 RF: 6 pantoprazole 40 mg tablet,delayed release (DR/EC) 40 mg PO BID Qty: 60 RF: 3 allopurinol 300 mg tablet 450 mg PO DAILY Qty: 135 RF: 1 diclofenac sodium 1 % gel See Rx Instructions .ROUTE .COMPLEX RF: 0 Discontinued clopidogrel 75 mg tablet 75 mg PO DAILY 30 Days Qty: 30 RF: 6 amlodipine 10 mg tablet 10 mg PO DAILY 30 Days Qty: 30 RF: 6 Discharge Orders: Discharge Order (Routine); Ordered 06/21/19 Ordered By: Orlando Armstrong Discharge Diet: Cardiac and Diabetic Discharge Activity: Increase activity as tolerated Activity Restrictions/Additional Instructions: Please stop by in my office on this coming Sunday dated June 23, 2023 EKG in between 1 and 4 PM. Please keep log of blood pressure pulse twice a day for next 10 days. Increase your Lasix 40 mg twice a day for next 3 days and then go back to 40 mg once a day. When you increase your Lasix increase your potassium to 20 meq twice a day as well and then reduce it to once a day. Discharge Attestations Time Spent in Discharge Care*: greater than 30 min Quality Metrics Clinical Quality Measures During this hospital stay, did patient experience: None Coding Level of Care Code Acute Metal Pattern Maker for Marcelle Bang History Expanded Problem Focused Exam Expanded Problem Focused Medical Decision Making Moderate Complexity Diagnoses Atrial fibrillation I48.19 Atrial fibrillation type: other persistent Chest pain R07.9 Chest pain type: unspecified Renal insufficiency N28.9 Diastolic heart failure I50.32 Heart failure chronicity: chronic HTN (hypertension) I10
[2019-06-21 11:15] LABS: Anion Gap 17.1 (5-19); Blood Urea Nitrogen 18 mg/dL (8-23); Calcium 10.1 mg/dL (8.5-10.5); Carbon Dioxide 27 mmol/L (22-29); Chloride 100 mmol/L (98-107); Glomerular Filtration Rate 51.2 mL/min (90-130); Glucose 147 mg/dL (65-115); Osmolality Calculated 289 mOsm/kg (285-295); Potassium 4.1 mmol/L (3.5-5.1); Sodium 140 mmol/L (136-145)
[2019-06-21 11:51] VITALS: PULSE 81; RESP 18; O2SAT 95
== END 2019-06-21 11:52 | disposition skilled nursing facility (03) | DRG 308 ==
LOC: MEDSURG 06-18 03:11 → CSU 06-18 13:15
PROVIDERS: Admitting Provider Internal Medicine Cardiovascular Disease; Family Provider Nurse Practitioner Family; PCP Nurse Practitioner Family; Visit Provider Internal Medicine Cardiovascular Disease
DX: I48.19 Other persistent atrial fibrillation (principal); I50.33 Acute on chronic diastolic (congestive) heart failure; I25.110 Atherosclerotic heart disease of native coronary artery with unstable angina pectoris; N17.9 Acute kidney failure, unspecified; I13.0 Hypertensive heart and chronic kidney disease with heart failure and stage 1 through stage 4 chronic kidney disease, or unspecified chronic kidney disease; Z68.43 Body mass index [BMI] 50.0-59.9, adult; I48.20 Chronic atrial fibrillation, unspecified; K21.9 Gastro-esophageal reflux disease without esophagitis; N18.3 Chronic kidney disease, stage 3 (moderate); R07.89 Other chest pain; E66.01 Morbid (severe) obesity due to excess calories
CPT/HCPCS: 12345; 36415; 36416; 80048; 82962; 85025; 85610; 85730; 93005; 93454; 94640; 96372; 96375; C1769; C1887; C1894; J1644; J1650; J1940; J2001; J2250; J3010; J3490; J3535; J7030; Q9967

== ENCOUNTER → 2019-06-26 12:36 | Outpatient (BNVA) | payer MEDICARE, MEDICAID, SELFPAY | PROVIDERS: Family Provider Nurse Practitioner Family; PCP Nurse Practitioner Family; Visit Provider Internal Medicine Rheumatology | DX: M1A.9XX0 Chronic gout, unspecified, without tophus (tophi) (principal); Z79.899 Other long term (current) drug therapy | CPT/HCPCS: 36415; 82565; 84550; 85651; 86140 ==

== ENCOUNTER → 2019-06-30 10:28 | Outpatient (BNVA) | payer MEDICARE, MEDICAID, SELFPAY | PROVIDERS: Family Provider Nurse Practitioner Family; PCP Nurse Practitioner Family; Visit Provider Otolaryngology | DX: H93.92 Unspecified disorder of left ear (principal); H93.12 Tinnitus, left ear | CPT/HCPCS: 99203; 99214 ==

== ENCOUNTER → 2019-07-03 11:23 | Outpatient (BNVA) | payer MEDICARE, MEDICAID, SELFPAY | PROVIDERS: PCP Nurse Practitioner Family; Visit Provider Internal Medicine Rheumatology | DX: M06.00 Rheumatoid arthritis without rheumatoid factor, unspecified site (principal); N18.3 Chronic kidney disease, stage 3 (moderate); M1A.3790 Chronic gout due to renal impairment, unspecified ankle and foot, without tophus (tophi) | CPT/HCPCS: 99214 ==

== ENCOUNTER 2019-07-10 12:44 | Outpatient (CLI) | payer MEDICARE, MEDICAID, SELFPAY ==
--- NOTE | 2019-07-10 13:30 | CT_ITS ---
WS: [id number] CT TEMPORAL BONES TECHNIQUE: Noncontrast CT of the temporal bones with coronal and sagittal reformatted images. CLINICAL INFORMATION: ear problem COMPARISON: None. DLP: 735.[address] scans at [facility] use at least one of these dose optimization techniques: automat ed exposure control; mA and/or kV adjustment per patient size (includes targeted exams where dose is matched to clinical indication); or iterative reconstruction. FINDINGS: Nasal septum is midline. Retention cyst right maxillary sinus measuring 1.7 CM. A few tiny retention cysts in the left maxillary sinus. Mild mucosal thickening in the ethmoid air cells. Strategic Planning Consultant ior fossa appears unremarkable. Normal parapharyngeal fat. RIGHT: Mastoid air cells are well aerated. Normal external auditory canal. Ossicles are normal in appearance . Middle ear is well aerated. Normal tegmen tympani. Semicircular canals and cochlea are normal in ap pearance. Prussak's space is normal. Normal inner ear structures. Normal vestibular aqueduct. Facial nerve recess is normal. LEFT: Mastoid air cells are well aerated. Normal external auditory canal. Ossicles are normal in appearance . Middle ear is well aerated. Normal tegmen tympani. Semicircular canals and cochlea are normal in ap pearance. Prussak's space is normal. Normal inner ear structures. Normal vestibular aqueduct. Facial nerve recess is normal. CT/CT temporal bone wo con* [id number] IMPRESSION: 1. Left middle ear and mastoid air cells are well aerated. Normal left externa l auditory canal. 2. Inner ear structures bilaterally are unremarkable. 3. No evidence of left middle ear cholesteatoma. 4. Retention cyst right maxillary sinus measuring 1.7 cm.
== END 2019-07-10 12:45 | disposition home or self-care (01) ==
LOC: CT 12:48
PROVIDERS: Family Provider Nurse Practitioner Family; PCP Nurse Practitioner Family; Visit Provider Otolaryngology
DX: H93.90 Unspecified disorder of ear, unspecified ear (principal); J34.1 Cyst and mucocele of nose and nasal sinus
CPT/HCPCS: 70480

== ENCOUNTER → 2019-10-09 12:32 | Outpatient (BNVA) | payer MEDICARE, MEDICAID, SELFPAY | PROVIDERS: Family Provider Nurse Practitioner Family; PCP Nurse Practitioner Family; Visit Provider Internal Medicine Rheumatology | DX: M06.00 Rheumatoid arthritis without rheumatoid factor, unspecified site (principal); N18.3 Chronic kidney disease, stage 3 (moderate); M19.90 Unspecified osteoarthritis, unspecified site; Z79.899 Other long term (current) drug therapy | CPT/HCPCS: 36415; 80076; 82565; 85025; 85651; 86140 ==

== ENCOUNTER → 2019-10-16 15:22 | Outpatient (BNVA) | payer MEDICARE, MEDICAID, SELFPAY | PROVIDERS: Family Provider Nurse Practitioner Family; PCP Nurse Practitioner Family; Visit Provider Internal Medicine Rheumatology | DX: M06.00 Rheumatoid arthritis without rheumatoid factor, unspecified site (principal); M1A.3790 Chronic gout due to renal impairment, unspecified ankle and foot, without tophus (tophi); N18.3 Chronic kidney disease, stage 3 (moderate); I48.91 Unspecified atrial fibrillation | CPT/HCPCS: 84550; 99213 ==

== ENCOUNTER → 2019-11-19 09:05 | Outpatient (BNVA) | payer MEDICARE, MEDICAID, SELFPAY | PROVIDERS: Family Provider Nurse Practitioner Family; PCP Nurse Practitioner Family; Visit Provider Nurse Practitioner Family | DX: M79.674 Pain in right toe(s) (principal); M1A.3790 Chronic gout due to renal impairment, unspecified ankle and foot, without tophus (tophi) | CPT/HCPCS: 73630 ==

== ENCOUNTER → 2020-01-15 12:29 | Outpatient (BNVA) | payer MEDICARE, MEDICAID, SELFPAY | PROVIDERS: Family Provider Nurse Practitioner Family; PCP Nurse Practitioner Family; Visit Provider Internal Medicine Rheumatology | DX: Z79.899 Other long term (current) drug therapy (principal) | CPT/HCPCS: 36415; 80076; 82565; 84550; 85025; 85651; 86140 ==

== ENCOUNTER → 2020-01-21 08:00 | Outpatient (BNVA) | payer MEDICARE, MEDICAID, SELFPAY | PROVIDERS: Family Provider Nurse Practitioner Family; PCP Nurse Practitioner Family; Referring Provider Nurse Practitioner Family; Visit Provider Internal Medicine | DX: E11.22 Type 2 diabetes mellitus with diabetic chronic kidney disease (principal); N18.3 Chronic kidney disease, stage 3 (moderate); E11.42 Type 2 diabetes mellitus with diabetic polyneuropathy; E11.65 Type 2 diabetes mellitus with hyperglycemia; E66.01 Morbid (severe) obesity due to excess calories | CPT/HCPCS: 99204 ==

== ENCOUNTER → 2020-01-23 10:12 | Outpatient (BNVA) | payer MEDICARE, MEDICAID, SELFPAY | PROVIDERS: Family Provider Nurse Practitioner Family; PCP Nurse Practitioner Family; Visit Provider Internal Medicine | DX: R63.5 Abnormal weight gain (principal); Z86.39 Personal history of other endocrine, nutritional and metabolic disease | CPT/HCPCS: 82530; 82570; 87086; 99398 ==

== ENCOUNTER → 2020-02-18 13:48 | Outpatient (BNVA) | payer MEDICARE, MEDICAID, SELFPAY | PROVIDERS: Family Provider Nurse Practitioner Family; PCP Nurse Practitioner Family; Visit Provider Internal Medicine | DX: R63.5 Abnormal weight gain (principal); Z86.39 Personal history of other endocrine, nutritional and metabolic disease; E11.65 Type 2 diabetes mellitus with hyperglycemia | CPT/HCPCS: 84439; 84443 ==

== ENCOUNTER → 2020-03-04 10:53 | Outpatient (BNVA) | payer MEDICARE, MEDICAID, SELFPAY | PROVIDERS: Family Provider Nurse Practitioner Family; PCP Nurse Practitioner Family; Visit Provider Internal Medicine | DX: E04.1 Nontoxic single thyroid nodule (principal); E11.22 Type 2 diabetes mellitus with diabetic chronic kidney disease; N18.30 Chronic kidney disease, stage 3 unspecified; E11.42 Type 2 diabetes mellitus with diabetic polyneuropathy; E11.65 Type 2 diabetes mellitus with hyperglycemia; E66.01 Morbid (severe) obesity due to excess calories; Z68.43 Body mass index [BMI] 50.0-59.9, adult; Z86.39 Personal history of other endocrine, nutritional and metabolic disease | CPT/HCPCS: 99214 ==

== ENCOUNTER 2020-03-23 13:40 | Outpatient (CLI) | payer MEDICARE, MEDICAID, SELFPAY ==
--- NOTE | 2020-03-23 14:15 | US_ITS ---
WS: [id number] THYROID ULTRASOUND HISTORY: History of thyroid nodule COMPARISON: None available. Right lobe: 5.0 cm x 1.9 cm x 3.1 cm. Volume: 15.4 cm3. Enlarged heterogeneous thyroid lobe. I believe there is a nodule replacing nearly the entire RIGHT th yroid. This nodule contains cystic and complex cystic nodules in the lower portion. The nodule is ess entially replacing nearly the entire thyroid. Cystic nodules in the lower portion of the solid nodule are complex. One nodule is predominantly cystic and the other is predominantly solid. No increased v ascularity. Left lobe: 4.7 cm x 2.6 cm x 2.1 cm. Volume: 13.2 cm3. Normal size and echotexture. No significant or dominant nodules are present. Isthmus: 0.7 cm. US/US thyroid [id number] IMPRESSION: 1. Enlarged RIGHT thyroid. I believe the entire lobe has been replaced by a no dule and this nodule contains cystic areas and complex cystic areas. No increas ed vascularity. Thyroid goiter within the differential. Due to the large size b iopsy should be obtained of the largest solid component. Ultrasound-guided FNA of the dominant RIGHT thyroid mass recommended. 2. Negative LEFT thyroid.
== END 2020-03-23 13:41 | disposition home or self-care (01) ==
LOC: RAD 13:45
PROVIDERS: PCP Nurse Practitioner Family; Visit Provider Internal Medicine
DX: E04.1 Nontoxic single thyroid nodule (principal)
CPT/HCPCS: 76536

== ENCOUNTER → 2020-04-08 12:31 | Outpatient (BNVA) | payer MEDICARE, MEDICAID, SELFPAY | PROVIDERS: PCP Nurse Practitioner Family; Visit Provider Internal Medicine Rheumatology | DX: M1A.3790 Chronic gout due to renal impairment, unspecified ankle and foot, without tophus (tophi) (principal); Z79.899 Other long term (current) drug therapy; M06.00 Rheumatoid arthritis without rheumatoid factor, unspecified site | CPT/HCPCS: 36415; 80076; 82565; 84550; 85025; 85651; 86140 ==

== ENCOUNTER → 2020-04-15 13:47 | Outpatient (BNVA) | payer MEDICARE, MEDICAID, SELFPAY | PROVIDERS: PCP Nurse Practitioner Family; Visit Provider Internal Medicine Rheumatology | DX: M06.00 Rheumatoid arthritis without rheumatoid factor, unspecified site (principal); M1A.3790 Chronic gout due to renal impairment, unspecified ankle and foot, without tophus (tophi); N18.30 Chronic kidney disease, stage 3 unspecified; I48.91 Unspecified atrial fibrillation; D64.9 Anemia, unspecified; E66.01 Morbid (severe) obesity due to excess calories; Z68.43 Body mass index [BMI] 50.0-59.9, adult | CPT/HCPCS: 99214 ==

== ENCOUNTER 2020-05-20 08:47 | Outpatient (CLI) | payer MEDICARE, MEDICAID, SELFPAY ==
--- NOTE | 2020-05-20 10:00 | US_ITS ---
WS: [id number] ULTRASOUND-GUIDED FNA RIGHT THYROID NODULE INDICATION: Right thyroid nodule TECHNIQUE: Ultrasound-guided FNA. The procedure including risks benefits and complications were discu ssed with the patient who agreed to proceed. Timeout was performed. Patient was prepped and draped in usual sterile fashion. After 1% lidocaine using ultrasound guidance 5 passes were made into the righ t thyroid nodule with active aspiration. Pathology was present for slide preparation. Patient remaine d in the department 20 minutes postprocedure with intermittent scanning for hematoma. No immediate co mbinations. US/US biopsy thyroid [id number] IMPRESSION: Uncomplicated ultrasound-guided FNA right thyroid nodule
== END 2020-05-20 08:48 | disposition home or self-care (01) ==
PROVIDERS: PCP Nurse Practitioner Family; Visit Provider Internal Medicine
DX: E04.1 Nontoxic single thyroid nodule (principal)
CPT/HCPCS: 10005; 88173; 88305

== ENCOUNTER → 2020-06-03 10:37 | Outpatient (BNVA) | payer MEDICARE, MEDICAID, SELFPAY | PROVIDERS: PCP Nurse Practitioner Family; Visit Provider Internal Medicine | DX: E04.1 Nontoxic single thyroid nodule (principal); E11.22 Type 2 diabetes mellitus with diabetic chronic kidney disease; N18.30 Chronic kidney disease, stage 3 unspecified; E11.42 Type 2 diabetes mellitus with diabetic polyneuropathy; E11.65 Type 2 diabetes mellitus with hyperglycemia; E55.9 Vitamin D deficiency, unspecified; E66.01 Morbid (severe) obesity due to excess calories; Z68.44 Body mass index [BMI] 60.0-69.9, adult; E78.5 Hyperlipidemia, unspecified | CPT/HCPCS: 99215 ==

== ENCOUNTER → 2020-06-18 11:42 | Outpatient (BNVA) | payer MEDICARE, MEDICAID, SELFPAY | PROVIDERS: PCP Nurse Practitioner Family; Visit Provider Surgery | DX: Z01.818 Encounter for other preprocedural examination (principal) | CPT/HCPCS: 87635 ==

== ENCOUNTER → 2020-09-13 13:06 | Outpatient (BNVA) | payer MEDICARE, MEDICAID, SELFPAY | PROVIDERS: PCP Nurse Practitioner Family; Visit Provider Internal Medicine Rheumatology | DX: D64.9 Anemia, unspecified (principal); M06.00 Rheumatoid arthritis without rheumatoid factor, unspecified site; M1A.3790 Chronic gout due to renal impairment, unspecified ankle and foot, without tophus (tophi); Z79.899 Other long term (current) drug therapy | CPT/HCPCS: 36415; 80076; 82565; 85025; 86140 ==

== ENCOUNTER → 2020-09-20 14:31 | Outpatient (BNVA) | payer MEDICARE, MEDICAID, SELFPAY | PROVIDERS: PCP Nurse Practitioner Family; Visit Provider Internal Medicine Rheumatology | DX: M06.00 Rheumatoid arthritis without rheumatoid factor, unspecified site (principal); M1A.3790 Chronic gout due to renal impairment, unspecified ankle and foot, without tophus (tophi); Z79.899 Other long term (current) drug therapy; N18.30 Chronic kidney disease, stage 3 unspecified; I48.91 Unspecified atrial fibrillation; D64.9 Anemia, unspecified; E66.9 Obesity, unspecified; Z68.43 Body mass index [BMI] 50.0-59.9, adult | CPT/HCPCS: 99214 ==

== ENCOUNTER → 2020-12-02 11:12 | Outpatient (BNVA) | payer MEDICARE, MEDICAID, SELFPAY | PROVIDERS: PCP Nurse Practitioner Family; Visit Provider Internal Medicine Rheumatology | DX: Z79.899 Other long term (current) drug therapy (principal); M06.00 Rheumatoid arthritis without rheumatoid factor, unspecified site | CPT/HCPCS: 36415; 80076; 82565; 84550; 85025; 86140 ==

== ENCOUNTER → 2020-12-20 13:18 | Outpatient (BNVA) | payer MEDICARE, MEDICAID, SELFPAY | PROVIDERS: PCP Nurse Practitioner Family; Visit Provider Internal Medicine Rheumatology | DX: M06.00 Rheumatoid arthritis without rheumatoid factor, unspecified site (principal); M1A.3790 Chronic gout due to renal impairment, unspecified ankle and foot, without tophus (tophi); Z79.899 Other long term (current) drug therapy; M19.90 Unspecified osteoarthritis, unspecified site; N18.30 Chronic kidney disease, stage 3 unspecified; D64.9 Anemia, unspecified; I48.91 Unspecified atrial fibrillation; E66.9 Obesity, unspecified; Z68.43 Body mass index [BMI] 50.0-59.9, adult | CPT/HCPCS: 99214 ==

== ENCOUNTER → 2021-02-07 08:52 | Outpatient (BNVA) | payer MEDICARE, MEDICAID, SELFPAY | PROVIDERS: PCP Nurse Practitioner Family; Visit Provider Internal Medicine Cardiovascular Disease | DX: I50.32 Chronic diastolic (congestive) heart failure (principal) | CPT/HCPCS: 80048; 83880 ==

== ENCOUNTER → 2021-02-14 11:41 | Outpatient (BNVA) | payer MEDICARE, MEDICAID, SELFPAY | PROVIDERS: PCP Nurse Practitioner Family; Visit Provider Nurse Practitioner Family | DX: I50.32 Chronic diastolic (congestive) heart failure (principal); I10 Essential (primary) hypertension | CPT/HCPCS: 80048; 83880 ==

== ENCOUNTER → 2021-03-16 09:40 | Outpatient (BNVA) | payer MEDICARE, MEDICAID, SELFPAY | PROVIDERS: PCP Nurse Practitioner Family; Visit Provider Internal Medicine | DX: E11.65 Type 2 diabetes mellitus with hyperglycemia (principal); E11.42 Type 2 diabetes mellitus with diabetic polyneuropathy; E11.22 Type 2 diabetes mellitus with diabetic chronic kidney disease; N18.30 Chronic kidney disease, stage 3 unspecified; E04.1 Nontoxic single thyroid nodule; E66.01 Morbid (severe) obesity due to excess calories; E55.9 Vitamin D deficiency, unspecified; E78.5 Hyperlipidemia, unspecified; D64.9 Anemia, unspecified; Z68.44 Body mass index [BMI] 60.0-69.9, adult | CPT/HCPCS: 99214 ==

== ENCOUNTER 2021-03-27 08:52 | Emergency (ER) | payer MEDICARE, MEDICAID, SELFPAY ==
[2021-03-27 09:04] VITALS: BP 134/84; PULSE 88; RESP 16; TEMP 36.7; O2SAT 96; BMI 58.5
--- NOTE | 2021-03-27 09:33 | ED_ITS ---
Documented by User: NUNU Galindo 03/27/21 14:14 HPI - GI Bleed General: Chief complaint: GI Bleed Stated complaint: BLOODY STOOLS Time Seen by Provider: 03/27/21 09:09 History of Present Illness: HPI Narrative: Patient states that he has had rectal bleeding for 2 weeks. 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 A1c had gone up to 10 from 7 due to new water pill he received from pyrometer temperature regulator. Patient says he is having larger bowel movements normal and bleeding started after that. He does have a history of hemorrhoids. Says he is scheduled for colonoscopy referral on Sunday with Dr. Monreal. Having pain in the low back last couple days worsening. Also been have some abdominal tenderness and does have a ventral hernia. Has history of diverticulosis and irritable bowel. complaint: blood on toilet paper Onset (ago): week(s) Pain Consistency: intermittent Severity: severe Exacerbating factors: none Context: hemorrhoids Associated symptoms: Reports no associated symptoms and abdominal pain; Denies chills, easy bruising, fever(s), headache(s), nausea, rash or vomiting Review of Systems Const: Denies: fever(s), chills or body aches Eyes: Denies: change in vision or blurry vision ENMT: Denies: throat pain or nasal congestion Card: Denies: chest pain or dyspnea on exertion Resp: Denies: dyspnea, productive cough or non-productive cough GI: Reports: abdominal pain, rectal itching, change in stool character and hematochezia; Denies: nausea, vomiting or melena : Denies: difficulty urinating Musc: Denies: extremity pain Skin/Breast: Denies: rash Neuro: Denies: headache(s) Psych: Denies: anxiety or depression Noah/Lymph: Denies: easy bruising PFSH ED PFSH: Medical History Anemia Atrial fibrillation Rate controlled on anticoagulation now Carpal tunnel syndrome Chest pain Patient underwent coronary angiogram which was normal CKD (chronic kidney disease) stage 3, GFR 30-59 ml/min Diastolic heart failure Compensated after IV diuretics GERD (gastroesophageal reflux disease) Gout High risk medication use High risk medication use Neuropathy Osteoarthritis Otalgia Renal insufficiency Improved after IV fluid Rheumatoid arthritis In remission Seronegative rheumatoid arthritis in remission Surgical History History of colonoscopy History of esophagogastroduodenoscopy (EGD) S/P appendectomy S/P carpal tunnel release 2x left S/P cervical disc replacement S/P hernia repair S/P skin cancer resection S/P thyroid surgery S/P tonsillectomy S/P trigger finger release Family History Father Cancer Prostate Hypertension Hypercholesterolemia Heart disease Mother Hypertension Hypercholesterolemia Anesthesia complication Daughter Anesthesia complication Denies family history of Bleeding disorder Social History Alcohol intake: former Lives independently: Yes Household members: spouse Marital status: Current occupational status: disabled History of recent travel: No Alexandra/Latter Day: Confucianism Special alexandra needs: Yes Agree to transfusion: No Physical Exam Const: COMMON NORMALS: no acute distress, average body habitus and patient oriented x3 HENMT: COMMON NORMALS: normocephalic HEAD & SCALP: normal to inspection and normocephalic FACE & SINUS: normal facial exam Eye: COMMON NORMALS: conjunctivae normal GENERAL EYE: appearance normal, both eyes and all related structures CONJUNCTIVA: Yes conjunctivae normal Neck/C-Spine: COMMON NORMALS: no JVD Chest: COMMONS NORMALS: normal inspection of the chest Resp: COMMON NORMALS: normal respiratory effort and clear to auscultation bilaterally AUSCULTATION: clear to auscultation bilaterally Cardio: COMMON NORMALS: no JVD, regular rate and regular rhythm RATE: regular rate RHYTHM: regular rhythm GI: AUSCULTATION: Yes normoactive bowel sounds PALPATION: Yes Tenderness to palpation present (GI) Details: LUQ Extremity: COMMON NORMALS: normal to inspection and full ROM Neuro: COMMON NORMALS: patient oriented x3 Course Vital Signs: Vital signs: Vital Signs Temperature 98.0 F 03/27/21 09:04 Pulse Rate 86 03/27/21 13:35 Respiratory Rate 18 03/27/21 13:35 Blood Pressure 114/85 03/27/21 13:35 Pulse Oximetry 95 03/27/21 13:35 MDM - GI Bleed MDM Narrative: Medical decision making narrative: Patient with rectal bleed for the last couple weeks. Patient has a history of hemorrhoids. Patient is also had back pain today. Patient's been having larger bowel movements. Hemorrhoids been irritated. Patient scheduled for colonoscopy referral tomorrow with Dr. Monreal. Patient has seen his attorney recruiter primary care provider they did lab work earlier this week which showed a hemoglobin of 11.7 today his hemoglobin is 11.9 PT/INR slightly elevated 1.63. Sodium was low at 130 creatinine BUN show 1.8/34 patient is chronic kidney disease stage III as per attorney recruiter. Platelets normal at 241. CT did not reveal any acute findings. Pain medicines controlled his back pain and patient was pain-free at time of discharge. Encourage patient to follow-up Dr. Monreal as scheduled tomorrow increase fiber in diet use [id number] hemorrhoid treatment follow-up here if any worsening symptoms return to family medical provider Lab Data: Labs: Lab Results 03/27/21 03/27/21 03/27/21 10:00 10:00 10:00 WBC 9.4 10^3/uL 10^3/ uL (4.0-10.0) RBC 4.15 10^6/uL 10^6 /uL (4.1-5.3) Hgb 11.9 g/dL g/dL (11.7-16.6) Hct 35.4 % L % (42.0-52.0) MCV 85.3 fl fl (80-94) MCH 28.7 pg pg (28.0-34.0) MCHC 33.6 g/dL g/dL (30.0-36.0) RDW 13.8 % % (12.1-15.1) Plt Count 241 10^3/cmm 10^3 /cmm (130-400) MPV 9.9 fL fL (7.4-10.4) Neut % (Auto) 74.7 % % Lymph % (Auto) 15.9 % % [place] % (Auto) 7.6 % % Eos % (Auto) 0.7 % % Baso % (Auto) 0.5 % % Neut # (Auto) 7.04 10^3/uL 10^3 /uL (1.8-7.7) Lymph # (Auto) 1.5 10^3/uL 10^3/ uL (0.8-4.8) [place] # (Auto) 0.7 10^3/uL 10^3/ uL (0.2-0.9) Eos # (Auto) 0.1 10^3/uL 10^3/ uL (0.0-0.8) Baso # (Auto) 0.1 10^3/uL 10^3/ uL (0.0-0.1) Nucleated RBC % (a uto) 0 % % Nucleated RBCs # 0.0 /100WBC /100W BC PT 19.70 SECONDS H S ECONDS (12.1-14.9) INR 1.63 H (0.8-1.2) Sodium 130 mmol/L L mmol /L (136-145) Potassium 4.0 mmol/L mmol/L (3.5-5.1) Chloride 89 mmol/L L mmol/ L (98-107) Carbon Dioxide 33 mmol/L H mmol/ L (22-29) Anion Gap 12.0 (5-19) BUN 34 mg/dL H mg/dL (8-23) Creatinine 1.8 mg/dL H mg/dL (0.7-1.2) GFR Calculation 38.1 mL/min L mL/ min (90-130) Glucose 141 mg/dL H mg/dL (65-115) Calculated Osmolal ity 280 mOsm/kg L mOs m/kg (285-295) Calcium 8.9 mg/dL mg/dL (8.5-10.5) Total Bilirubin 0.3 mg/dL mg/dL (0.15-1.2) AST 21 U/L U/L (0-40) ALT 22 U/L U/L (0-41) Alkaline Phosphata se 50 IU/L IU/L (40-130) Total Protein 7.2 g/dL g/dL (6.6-8.7) Albumin 4.1 g/dL g/dL (3.5-5.2) Globulin 3.1 g/dL g/dL (1.3-4.6) Discharge Plan Discharge Patient Disposition: Home Clinical Impression: Hematochezia Back pain Qualifiers: Back pain location: low back pain Chronicity: acute Back pain laterality: bilateral Sciatica presence: without sciatica Qualified Code(s): M54.50 - Low back pain, unspecified Condition: Stable Prescriptions: New hydrocodone-acetaminophen 5-325 mg tablet 1 tab PO TID PRN (Reason: pain) Qty: 14 RF: 0 No Action benzonatate 100 mg capsule 100 mg PO BID PRNRF: 0 Trulicity 0.75 mg/0.5 mL pen injector 1.5 mg SUBCUT .Weekly RF: 0 (DME) blood-glucose meter [Accu-Chek Guide Glucose Meter] Misc See Rx Instructions .ROUTE .MEDSUPPLY Qty: 1 RF: 0 (DME) lancets [Accu-Chek Fastclix Lancet Drum] Misc See Rx Instructions .ROUTE .MEDSUPPLY Qty: 200 RF: 3 prednisone 10 mg tablet See Rx Instructions PO .COMPLEX PRN (Reason: gout pain flare) Qty: 30 RF: 1 (DME) Diabetic shoes with molded inserts See Rx Instructions .Route .MEDSUPPLY Qty: 1 RF: 0 (DME) Diabetic shoes with 3 pairs of inserts See Rx Instructions .Route .MEDSUPPLY Qty: 1 RF: 0 triamcinolone acetonide 0.1 % cream 1 applic topical BID Qty: 80 RF: 2 ammonium lactate [AmLactin] 12 % lotion 1 applic TOPICAL DAILY PRN (Reason: unknown) RF: 0 fenofibrate nanocrystallized 145 mg tablet 145 mg PO DAILY RF: 0 acyclovir 5 % ointment See Rx Instructions .ROUTE .COMPLEX RF: 0 ergocalciferol (vitamin D2) 50,000 unit capsule 50,000 unit PO .monthly RF: 0 losartan 50 mg tablet 50 mg PO DAILY RF: 0 Gold Orantes Ultimate Eczema Rlf 2 % cream topical .prn RF: 0 glipizide 10 mg tablet 10 mg PO BID Qty: 184 RF: 3 allopurinol 100 mg tablet 200 mg PO DAILY Qty: 60 RF: 3 (DME) pen needle, diabetic 31 gauge x 1/4 needle See Rx Instructions .Route Qty: 100 RF: 3 (DME) Diabetic shoes with inserts See Rx Instructions .Route .MEDSUPPLY Qty: 1 RF: 0 Xarelto 20 mg tablet 20 mg PO DAILY Qty: 90 RF: 3 ketoconazole 2 % cream See Rx Instructions .ROUTE .COMPLEX Qty: 60 RF: 2 isosorbide mononitrate 30 mg tablet extended release 24 hr 30 mg PO BID Qty: 180 RF: 3 verapamil 240 mg tablet extended release 240 mg PO DAILY Qty: 30 RF: 6 metoprolol tartrate 50 mg tablet See Rx Instructions .ROUTE .COMPLEX Qty: 270 RF: 1 hydrocortisone 2.5 % cream 1 applic topical BID PRN (Reason: rash) Qty: 28 RF: 2 spironolactone 25 mg tablet 12.5 mg PO DAILY Qty: 30 RF: 3 nitroglycerin [Nitrostat] 0.4 mg tablet, sublingual 0.4 mg SUBLINGUAL DIRECTED 30 Days Qty: 25 RF: 6 furosemide 40 mg tablet 40 mg PO BID Qty: 180 RF: 3 pantoprazole 40 mg tablet,delayed release (DR/EC) 40 mg PO BID Qty: 60 RF: 2 metolazone 2.5 mg tablet 1.25 mg PO DAILY Qty: 30 RF: 0 (DME) Accu-Chek Guide test strips Strip See Rx Instructions .ROUTE .MEDSUPPLY Qty: 300 RF: 3 Lantus Solostar U-100 Insulin 100 unit/mL (3 mL) insulin pen 10 unit SUBCUT DAILY Qty: 15 RF: 3 ezetimibe 10 mg tablet 10 mg PO DAILY Qty: 90 RF: 3 (DME) pen needle, diabetic [BD Gabriella 2nd Gen Pen Needle] 32 gauge x 5/32 needle See Rx Instructions .Route Qty: 100 RF: 3 diclofenac sodium 1 % gel See Rx Instructions .ROUTE .COMPLEX RF: 0 Discharge Orders: Discharge ED (Routine); Ordered 03/27/21 Ordered By: Parish Neff Referrals: Lilian Mcintyre FNP [Primary Care Provider] - Discharge Diet: Usual diet Discharge Activity: Resume usual activity Patient Instructions: Hemorrhoids (ED), Opioid Safety Activity Restrictions/Additional Instructions: Follow-up with medical provider as directed. Take medications as prescribed. Return to the ER or your medical provider if condition worsens. Please read and understand discharge instructions. If any questions ask please. Keep appointment with Dr. Monreal tomorrow. Coding Level of Care Code ED Litigation Manager for Chg Fwd Exam Comprehensive Documented by User: Valdemar Vásquez MD 04/02/21 00:32 HPI - GI Bleed General: Chief complaint: GI Bleed Stated complaint: BLOODY STOOLS Time Seen by Provider: 03/27/21 09:09 PFSH ED PFSH: Medical History Anemia Atrial fibrillation Rate controlled on anticoagulation now Carpal tunnel syndrome Chest pain Patient underwent coronary angiogram which was normal CKD (chronic kidney disease) stage 3, GFR 30-59 ml/min Diastolic heart failure Compensated after IV diuretics GERD (gastroesophageal reflux disease) Gout High risk medication use High risk medication use Neuropathy Osteoarthritis Otalgia Renal insufficiency Improved after IV fluid Rheumatoid arthritis In remission Seronegative rheumatoid arthritis in remission Surgical History History of colonoscopy History of esophagogastroduodenoscopy (EGD) S/P appendectomy S/P carpal tunnel release 2x left S/P cervical disc replacement S/P hernia repair S/P skin cancer resection S/P thyroid surgery S/P tonsillectomy S/P trigger finger release Family History Father Cancer Prostate Hypertension Hypercholesterolemia Heart disease Mother Hypertension Hypercholesterolemia Anesthesia complication Daughter Anesthesia complication Denies family history of Bleeding disorder Social History Alcohol intake: former Lives independently: Yes Household members: spouse Marital status: Current occupational status: disabled History of recent travel: No Alexandra/Latter Day: Confucianism Special alexandra needs: Yes Agree to transfusion: No Course Vital Signs: Vital signs: Vital Signs Temperature 98.0 F 03/27/21 09:04 Pulse Rate 86 03/27/21 13:35 Respiratory Rate 18 03/27/21 13:35 Blood Pressure 114/85 03/27/21 13:35 Pulse Oximetry 95 03/27/21 13:35 MDM - GI Bleed MDM Narrative: Medical decision making narrative: I have reviewed documentation, labs, imaging as written by Parish Neff NP. Valdemar Vásquez MD Emergency Medicine Lab Data: Labs: Lab Results 03/27/21 03/27/21 03/27/21 10:00 10:00 10:00 WBC 9.4 10^3/uL 10^3/ uL (4.0-10.0) RBC 4.15 10^6/uL 10^6 /uL (4.1-5.3) Hgb 11.9 g/dL g/dL (11.7-16.6) Hct 35.4 % L % (42.0-52.0) MCV 85.3 fl fl (80-94) MCH 28.7 pg pg (28.0-34.0) MCHC 33.6 g/dL g/dL (30.0-36.0) RDW 13.8 % % (12.1-15.1) Plt Count 241 10^3/cmm 10^3 /cmm (130-400) MPV 9.9 fL fL (7.4-10.4) Neut % (Auto) 74.7 % % Lymph % (Auto) 15.9 % % [place] % (Auto) 7.6 % % Eos % (Auto) 0.7 % % Baso % (Auto) 0.5 % % Neut # (Auto) 7.04 10^3/uL 10^3 /uL (1.8-7.7) Lymph # (Auto) 1.5 10^3/uL 10^3/ uL (0.8-4.8) [place] # (Auto) 0.7 10^3/uL 10^3/ uL (0.2-0.9) Eos # (Auto) 0.1 10^3/uL 10^3/ uL (0.0-0.8) Baso # (Auto) 0.1 10^3/uL 10^3/ uL (0.0-0.1) Nucleated RBC % (a uto) 0 % % Nucleated RBCs # 0.0 /100WBC /100W BC PT 19.70 SECONDS H S ECONDS (12.1-14.9) INR 1.63 H (0.8-1.2) Sodium 130 mmol/L L mmol /L (136-145) Potassium 4.0 mmol/L mmol/L (3.5-5.1) Chloride 89 mmol/L L mmol/ L (98-107) Carbon Dioxide 33 mmol/L H mmol/ L (22-29) Anion Gap 12.0 (5-19) BUN 34 mg/dL H mg/dL (8-23) Creatinine 1.8 mg/dL H mg/dL (0.7-1.2) GFR Calculation 38.1 mL/min L mL/ min (90-130) Glucose 141 mg/dL H mg/dL (65-115) Calculated Osmolal ity 280 mOsm/kg L mOs m/kg (285-295) Calcium 8.9 mg/dL mg/dL (8.5-10.5) Total Bilirubin 0.3 mg/dL mg/dL (0.15-1.2) AST 21 U/L U/L (0-40) ALT 22 U/L U/L (0-41) Alkaline Phosphata se 50 IU/L IU/L (40-130) Total Protein 7.2 g/dL g/dL (6.6-8.7) Albumin 4.1 g/dL g/dL (3.5-5.2) Globulin 3.1 g/dL g/dL (1.3-4.6) Discharge Plan Discharge Patient Disposition: Home Clinical Impression: Hematochezia Back pain Qualifiers: Back pain location: low back pain Chronicity: acute Back pain laterality: bilateral Sciatica presence: without sciatica Qualified Code(s): M54.50 - Low back pain, unspecified Condition: Stable Prescriptions: New hydrocodone-acetaminophen 5-325 mg tablet 1 tab PO TID PRN (Reason: pain) Qty: 14 RF: 0 No Action benzonatate 100 mg capsule 100 mg PO BID PRNRF: 0 Trulicity 0.75 mg/0.5 mL pen injector 1.5 mg SUBCUT .Weekly RF: 0 (DME) blood-glucose meter [Accu-Chek Guide Glucose Meter] Misc See Rx Instructions .ROUTE .MEDSUPPLY Qty: 1 RF: 0 (DME) lancets [Accu-Chek Fastclix Lancet Drum] Misc See Rx Instructions .ROUTE .MEDSUPPLY Qty: 200 RF: 3 prednisone 10 mg tablet See Rx Instructions PO .COMPLEX PRN (Reason: gout pain flare) Qty: 30 RF: 1 (DME) Diabetic shoes with molded inserts See Rx Instructions .Route .MEDSUPPLY Qty: 1 RF: 0 (DME) Diabetic shoes with 3 pairs of inserts See Rx Instructions .Route .MEDSUPPLY Qty: 1 RF: 0 triamcinolone acetonide 0.1 % cream 1 applic topical BID Qty: 80 RF: 2 ammonium lactate [AmLactin] 12 % lotion 1 applic TOPICAL DAILY PRN (Reason: unknown) RF: 0 fenofibrate nanocrystallized 145 mg tablet 145 mg PO DAILY RF: 0 acyclovir 5 % ointment See Rx Instructions .ROUTE .COMPLEX RF: 0 ergocalciferol (vitamin D2) 50,000 unit capsule 50,000 unit PO .monthly RF: 0 losartan 50 mg tablet 50 mg PO DAILY RF: 0 Gold Orantes Ultimate Eczema Rlf 2 % cream topical .prn RF: 0 glipizide 10 mg tablet 10 mg PO BID Qty: 184 RF: 3 allopurinol 100 mg tablet 200 mg PO DAILY Qty: 60 RF: 3 (DME) pen needle, diabetic 31 gauge x 1/4 needle See Rx Instructions .Route Qty: 100 RF: 3 (DME) Diabetic shoes with inserts See Rx Instructions .Route .MEDSUPPLY Qty: 1 RF: 0 Xarelto 20 mg tablet 20 mg PO DAILY Qty: 90 RF: 3 ketoconazole 2 % cream See Rx Instructions .ROUTE .COMPLEX Qty: 60 RF: 2 isosorbide mononitrate 30 mg tablet extended release 24 hr 30 mg PO BID Qty: 180 RF: 3 verapamil 240 mg tablet extended release 240 mg PO DAILY Qty: 30 RF: 6 metoprolol tartrate 50 mg tablet See Rx Instructions .ROUTE .COMPLEX Qty: 270 RF: 1 hydrocortisone 2.5 % cream 1 applic topical BID PRN (Reason: rash) Qty: 28 RF: 2 spironolactone 25 mg tablet 12.5 mg PO DAILY Qty: 30 RF: 3 nitroglycerin [Nitrostat] 0.4 mg tablet, sublingual 0.4 mg SUBLINGUAL DIRECTED 30 Days Qty: 25 RF: 6 furosemide 40 mg tablet 40 mg PO BID Qty: 180 RF: 3 pantoprazole 40 mg tablet,delayed release (DR/EC) 40 mg PO BID Qty: 60 RF: 2 metolazone 2.5 mg tablet 1.25 mg PO DAILY Qty: 30 RF: 0 (DME) Accu-Chek Guide test strips Strip See Rx Instructions .ROUTE .MEDSUPPLY Qty: 300 RF: 3 Lantus Solostar U-100 Insulin 100 unit/mL (3 mL) insulin pen 10 unit SUBCUT DAILY Qty: 15 RF: 3 ezetimibe 10 mg tablet 10 mg PO DAILY Qty: 90 RF: 3 (DME) pen needle, diabetic [BD Gabriella 2nd Gen Pen Needle] 32 gauge x 5/32 needle See Rx Instructions .Route Qty: 100 RF: 3 diclofenac sodium 1 % gel See Rx Instructions .ROUTE .COMPLEX RF: 0 Discharge Orders: Discharge ED (Routine); Ordered 03/27/21 Ordered By: Parish Neff Referrals: Lilian Mcintyre FNP [Primary Care Provider] - Discharge Diet: Usual diet Discharge Activity: Resume usual activity Patient Instructions: Hemorrhoids (ED), Opioid Safety Activity Restrictions/Additional Instructions: Follow-up with medical provider as directed. Take medications as prescribed. Return to the ER or your medical provider if condition worsens. Please read and understand discharge instructions. If any questions ask please. Keep appointment with Dr. Monreal tomorrow. Coding Level of Care Code ED Litigation Manager for Marcelle Fwalesia Exam Comprehensive
[2021-03-27] MEDS: ondansetron 2 mg/ML SDV 2 mL 4 MG IVP (10:20)
[2021-03-27 10:22] VITALS: RESP 18; O2SAT 93
[2021-03-27] MEDS: morphine 4 mg/mL SDV 1 mL IVP (10:22)
[2021-03-27 10:26] LABS: Basophils # 0.1 10^3/uL (0.0-0.1); Basophils % 0.5 %; Eosinophils # 0.1 10^3/uL (0.0-0.8); Eosinophils % 0.7 %; Hematocrit 35.4 % (42.0-52.0); Hemoglobin 11.9 g/dL (11.7-16.6); Lymphocytes # 1.5 10^3/uL (0.8-4.8); Lymphocytes % 15.9 %; Mean Corpuscular HGB Conc 33.6 g/dL (30.0-36.0); Mean Corpuscular Hemoglobin 28.7 pg (28.0-34.0); Mean Corpuscular Volume 85.3 fl (80-94); Mean Platelet Volume 9.9 fL (7.4-10.4); Monocytes # 0.7 10^3/uL (0.2-0.9); Monocytes % 7.6 %; Neutrophils # 7.04 10^3/uL (1.8-7.7); Neutrophils % 74.7 %; Nucleated Red Blood Cells % 0 %; Platelet Count 241 10^3/cmm (130-400); Red Blood Count 4.15 10^6/uL (4.1-5.3); Red Cell Distribution Width 13.8 % (12.1-15.1); White Blood Count 9.4 10^3/uL (4.0-10.0)
[2021-03-27] MEDS: metoclopramide 5 mg/mL SDV 2 mL IVP (10:26)
[2021-03-27 10:34] LABS: INR 1.63 (0.8-1.2)
[2021-03-27 10:46] LABS: Alanine Aminotransferase 22 U/L (0-41); Albumin Level 4.1 g/dL (3.5-5.2); Alkaline Phosphatase 50 IU/L (40-130); Aspartate Amino Transferase 21 U/L (0-40); Blood Urea Nitrogen 34 mg/dL (8-23); Calcium 8.9 mg/dL (8.5-10.5); Carbon Dioxide 33 mmol/L (22-29); Chloride 89 mmol/L (98-107); Globulin 3.1 g/dL (1.3-4.6); Glomerular Filtration Rate 38.1 mL/min (90-130); Glucose 141 mg/dL (65-115); Osmolality Calculated 280 mOsm/kg (285-295); Sodium 130 mmol/L (136-145); Total Bilirubin 0.3 mg/dL (0.15-1.2); Total Protein 7.2 g/dL (6.6-8.7)
--- NOTE | 2021-03-27 11:00 | CTR_ITS ---
PROCEDURE INFORMATION: Exam: CT Abdomen Without Contrast Exam date and time: 03/27/2021 11:00 AM Age: 65 years old Clinical indication: Other: Gi bleed; Abdominal pain; Additional info: Pain, gi bleed TECHNIQUE: Imaging protocol: Computed tomography images of the abdomen without contrast. Radiation optimization: All CT scans at this facility use at least one of these dose optimization techniques: automated exposure control; mA and/or kV adjustment per patient size (includes targeted exams where dose is matched to clinical indication); or iterative reconstruction. COMPARISON: CT abdomen [facility] [id number] 04/06/2016 8:53 AM RADIATION DOSE METRICS: Total DLP (mGy-cm): 1731.67 FINDINGS: Liver: Hepatic steatosis. Gallbladder and bile ducts: Normal. No calcified stones. No ductal dilation. Pancreas: Normal. No ductal dilation. Spleen: Normal. No splenomegaly. Adrenals: Normal. No mass. Kidneys and ureters: No calculus or hydronephrosis. Stomach and bowel: No acute findings. No obstruction. Minimal colonic diverticulosis. Underdistention of the stomach, gastric wall thickening cannot be excluded. Intraperitoneal space: Unremarkable. No free air. No significant fluid collection. Lymph nodes: No significant adenopathy. Vasculature: No abdominal aortic aneurysm. Bones/joints: No acute findings. Soft tissues: Supraumbilical ventral hernia containing transverse colon and small bowel without entrapment. CT/CT abdomen [facility] [id number] IMPRESSION: No acute findings. Radiation Dose CTDIVOL = (mGy): DLP = 1731.67 (mGy-cm)
[2021-03-27 11:16] VITALS: BP 149/106; PULSE 80; RESP 20; O2SAT 94
[2021-03-27 12:33] VITALS: BP 135/71
[2021-03-27] MEDS: losartan 50 mg Tablet PO (12:33)
[2021-03-27] MEDS: verapamil ER 240 mg Tablet PO (12:36)
[2021-03-27 13:35] VITALS: BP 114/85; PULSE 86; RESP 18; O2SAT 95
== END 2021-03-27 13:29 | disposition home or self-care (01) ==
PROVIDERS: Emergency Provider Nurse Practitioner Family; PCP Nurse Practitioner Family
DX: K92.1 Melena (principal); M54.50 Low back pain, unspecified; Z79.84 Long term (current) use of oral hypoglycemic drugs; Z79.4 Long term (current) use of insulin; N18.30 Chronic kidney disease, stage 3 unspecified; I50.9 Heart failure, unspecified
CPT/HCPCS: 74150; 80053; 85025; 85610; 96374; 96375; 99284; J2270; J2405; J2765

== ENCOUNTER → 2021-03-28 13:18 | Outpatient (BNVA) | payer MEDICARE, MEDICAID, SELFPAY | PROVIDERS: PCP Nurse Practitioner Family; Visit Provider Internal Medicine Rheumatology | DX: M06.00 Rheumatoid arthritis without rheumatoid factor, unspecified site (principal); M1A.3790 Chronic gout due to renal impairment, unspecified ankle and foot, without tophus (tophi); Z79.899 Other long term (current) drug therapy; M19.90 Unspecified osteoarthritis, unspecified site | CPT/HCPCS: 36415; 80076; 82565; 84550; 85025; 86140 ==

== ENCOUNTER → 2021-04-08 11:38 | Outpatient (BNVA) | payer MEDICARE, MEDICAID, SELFPAY | PROVIDERS: PCP Nurse Practitioner Family; Visit Provider Surgery | DX: K92.1 Melena (principal); Z20.822 Contact with and (suspected) exposure to COVID-19 | CPT/HCPCS: 87635 ==

== ENCOUNTER 2021-04-13 07:45 | Day surgery (SDC) | payer MEDICARE, MEDICAID, SELFPAY ==
[2021-04-11 14:31] VITALS: BMI 59.6
--- NOTE | 2021-04-13 08:14 | P.ANESASSM_ITS ---
Pre-Anesthetic Assessment Pre-Anesthetic Assessment: Height/Weight: Height 1.75 m Weight 183.251 kg Preop Diagnosis: Chest pain Proposed Procedure: Operation Date: 04/13/21 10:15 Proposed Procedures p Colonoscopy 31202 K92.1(Not Applicable) - Solomon Monreal MD Familial anesthetic complications: None Last intake: > 8hrs Social: Social History: No alcohol and No tobacco Exam: Pre-Anes Outpt Exam: alert, oriented x 3, clear to auscultation bilaterally and regular rate & rhythm Airway: MP: 3 Dentition: Chipped Pulmonary: Pulmonary: Sleep apnea CV/HEM: CV/HEM: Afib, Anemia, Angina (Stable), CHF and HTN : : Chronic renal Insufficiency Hepatic: Comments: fatty liver GI: GI: GERD Metabolic: Metabolic: DM and Morbid obesity Anesthetic Plan: ASA status: 4 Anesthesia: MAC Risk of > 500 ml blood loss (7ml/kg in children): No Other Pertinent Information: Patient doesn't take blood, will take albumin and autologus blood in continuity PFSH Anesthesia PFSH: Medical History Anemia Atrial fibrillation Rate controlled on anticoagulation now Carpal tunnel syndrome Chest pain Patient underwent coronary angiogram which was normal CKD (chronic kidney disease) stage 3, GFR 30-59 ml/min Diastolic heart failure Compensated after IV diuretics GERD (gastroesophageal reflux disease) Gout High risk medication use High risk medication use Neuropathy Osteoarthritis Otalgia Renal insufficiency Improved after IV fluid Rheumatoid arthritis In remission Seronegative rheumatoid arthritis in remission Surgical History History of colonoscopy History of esophagogastroduodenoscopy (EGD) S/P appendectomy S/P carpal tunnel release 2x left S/P cervical disc replacement S/P hernia repair S/P skin cancer resection S/P thyroid surgery S/P tonsillectomy S/P trigger finger release Family History Father Cancer Prostate Hypertension Hypercholesterolemia Heart disease Mother Hypertension Hypercholesterolemia Anesthesia complication Daughter Anesthesia complication Denies family history of Bleeding disorder Social History Alcohol intake: former Lives independently: Yes Household members: spouse Marital status: Current occupational status: disabled History of recent travel: No Alexandra/Congregational: Sabianism Special alexandra needs: Yes Agree to transfusion: No Data Anesthesia Cardiac Studies: No Data to Display
--- NOTE | 2021-04-13 09:05 | W.PM.OPSUD ---
Surgery/Procedure H&P Update DATE OF PROCEDURE: April 13, 2021 DATE H&P PERFORMED: 03/28/21 H&P UPDATE INFORMATION: I have reviewed H&P completed within last 30 days, I have examined patient prior to procedure and Changes to prior documentation as noted here CHANGES TO PREVIOUS DOCUMENTATION: Patient mentioned that he started to have hemorrhoid issues PREOP DIAGNOSIS: Hematochezia PRIMARY INDICATION FOR PROCEDURE: The same PLANNED PROCEDURE: Operation Date: 04/13/21 10:15 Proposed Procedures p Colonoscopy 27147 K92.1(Not Applicable) - Solomon Monreal MD
[2021-04-13 09:10] VITALS: BP 177/96; PULSE 86; RESP 16; TEMP 36.1; O2SAT 97
[2021-04-13] MEDS: sodium chloride 0.9% 1,000 ML 30 ML IV (09:12)
[2021-04-13 11:39] VITALS: BP 88/66; PULSE 80; RESP 16; TEMP 36.1; O2SAT 91
[2021-04-13 11:49] VITALS: BP 108/84; PULSE 84; RESP 18; O2SAT 93
--- NOTE | 2021-04-13 13:40 | ANE.PACU2 ---
Inpatient post-anesthesia follow up: Airway intact: Yes Vital signs: Temperature 97.0 F Pulse Rate 84 Respiratory Rate 18 Blood Pressure 108/84 Pulse Oximetry 93 Oxygen Delivery Me thod Room Air Oxygen Flow Rate Fraction of Inspir ed Oxygen Hydration adequate: Yes Nausea and vomiting: No Pain level: 2 Mental status: Baseline
== END 2021-04-13 12:05 | disposition home or self-care (01) ==
PROVIDERS: PCP Nurse Practitioner Family; Visit Provider Surgery
PROC: 0DJD8ZZ Inspection of Lower Intestinal Tract, Via Natural or Artificial Opening Endoscopic (ICD-10-PCS; CPT 45378; principal; 2021-04-13 10:15)
DX: K92.1 Melena (principal); K62.1 Rectal polyp; K57.30 Diverticulosis of large intestine without perforation or abscess without bleeding; K64.4 Residual hemorrhoidal skin tags; I48.91 Unspecified atrial fibrillation; D64.9 Anemia, unspecified; I11.0 Hypertensive heart disease with heart failure; I50.9 Heart failure, unspecified; K21.9 Gastro-esophageal reflux disease without esophagitis; E11.9 Type 2 diabetes mellitus without complications; E66.01 Morbid (severe) obesity due to excess calories; Z68.43 Body mass index [BMI] 50.0-59.9, adult
CPT/HCPCS: 45380; 88305; 96360; 96361; J2704; J7030

== ENCOUNTER 2021-04-19 13:38 | Outpatient (CLI) | payer MEDICARE, MEDICAID, SELFPAY ==
[2021-04-19 14:51] LABS: Basophils # 0.1 10^3/uL (0.0-0.1); Basophils % 0.6 %; Eosinophils # 0.1 10^3/uL (0.0-0.8); Eosinophils % 0.4 %; Hematocrit 36.9 % (42.0-52.0); Hemoglobin 12.2 g/dL (11.7-16.6); Lymphocytes # 2.1 10^3/uL (0.8-4.8); Lymphocytes % 15.4 %; Mean Corpuscular HGB Conc 33.1 g/dL (30.0-36.0); Mean Corpuscular Hemoglobin 28.4 pg (28.0-34.0); Mean Corpuscular Volume 85.8 fl (80-94); Mean Platelet Volume 9.4 fL (7.4-10.4); Monocytes # 0.8 10^3/uL (0.2-0.9); Monocytes % 5.8 %; Neutrophils # 10.56 10^3/uL (1.8-7.7); Nucleated Red Blood Cells % 0 %; Platelet Count 269 10^3/cmm (130-400); Red Cell Distribution Width 13.6 % (12.1-15.1); White Blood Count 13.7 10^3/uL (4.0-10.0)
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
[2021-04-19 18:47] LABS: Ferritin 101 ng/mL (30-400); Iron 44 ug/dL (59-158); Percent Saturation 9.6 % (20-50); Total Iron Binding Capacity 457 mcg/dl; Unsaturated Iron Binding 413 ug/dL (112-347)
== END 2021-04-19 13:39 | disposition home or self-care (01) ==
LOC: ONCMED 13:47
PROVIDERS: PCP Nurse Practitioner Family; Visit Provider Internal Medicine Hematology & Oncology
DX: D50.9 Iron deficiency anemia, unspecified (principal); I48.91 Unspecified atrial fibrillation; I10 Essential (primary) hypertension; L08.9 Local infection of the skin and subcutaneous tissue, unspecified; G47.33 Obstructive sleep apnea (adult) (pediatric); Z79.01 Long term (current) use of anticoagulants; Z79.899 Other long term (current) drug therapy; Z87.440 Personal history of urinary (tract) infections
CPT/HCPCS: 36415; 82728; 83540; 83550; 85025; 99204

== ENCOUNTER 2021-04-21 09:31 | Outpatient (CLI) | payer MEDICARE, MEDICAID, SELFPAY ==
[2021-04-21 10:27] LABS: Bilirubin Urine Neg (Negative); Blood Urine Neg (Negative); Glucose Urine UA Norm (Normal); Ketones Urine Negative (Negative); Leukocyte Esterase Urine Negative (Negative); Nitrate Urine Negative (Negative); Protein Urine Neg (Negative); Urine Appearance Clear (CLEAR); Urine Color Straw (Yellow); Urobilinogen Urine Norm (Negative); pH Urine 5 (5-7)
[2021-04-21 10:33] LABS: Add Urine Culture? No; Bacteria Urine TRACE /hpf; Squamous Epithelial Cell Urine 0-4 /hpf (0-5); WBC Urine 0-4 /hpf (0-5)
== END 2021-04-21 09:32 | disposition home or self-care (01) ==
LOC: LAB 09:35
PROVIDERS: PCP Nurse Practitioner Family; Visit Provider Internal Medicine Hematology & Oncology
DX: D50.9 Iron deficiency anemia, unspecified (principal)
CPT/HCPCS: 81001

== ENCOUNTER 2021-04-23 22:48 | Emergency (ER) | payer MEDICARE, MEDICAID, SELFPAY ==
[2021-04-23 23:05] VITALS: BP 120/73; PULSE 85; RESP 20; TEMP 36.2; O2SAT 97; BMI 57.9
--- NOTE | 2021-04-23 23:15 | CTR_ITS ---
PROCEDURE INFORMATION: Exam: CT Head Without Contrast Exam date and time: 04/23/2021 11:15 PM Age: 65 years old Clinical indication: Injury or trauma; Fall; Blunt trauma (contusions or hematomas); Without loss of consciousness; Additional info: Fall head inj TECHNIQUE: Imaging protocol: Computed tomography of the head without contrast. Radiation optimization: All CT scans at this facility use at least one of these dose optimization techniques: automated exposure control; mA and/or kV adjustment per patient size (includes targeted exams where dose is matched to clinical indication); or iterative reconstruction. COMPARISON: CT head wo con* [id number] 01/07/2017 10:44 AM RADIATION DOSE METRICS: Total DLP (mGy-cm): 910.62 FINDINGS: Brain: Unremarkable. No hemorrhage. No significant white matter disease. No edema. Cerebral ventricles: No ventriculomegaly. Paranasal sinuses: Minimal mucoperiosteal thickening in the bilateral frontal and bilateral anterior ethmoid sinuses. This is unchanged. No fluid levels. Mastoid air cells: Unremarkable as visualized. No mastoid effusion. Bones/joints: Unremarkable. No acute fracture. Soft tissues: Unremarkable. CT/CT head wo con* [id number] IMPRESSION: 1. No acute intracranial abnormality demonstrated. 2. There is no interval change from the prior examination.
--- NOTE | 2021-04-23 23:15 | CTR_ITS ---
PROCEDURE INFORMATION: Exam: CT Cervical Spine Without Contrast Exam date and time: 04/23/2021 11:15 PM Age: 65 years old Clinical indication: Injury or trauma; Fall; Blunt trauma; Prior surgery; Surgery date: 6+ months; Additional info: Fall head inj TECHNIQUE: Imaging protocol: Computed tomography images of the cervical spine without contrast. Radiation optimization: All CT scans at this facility use at least one of these dose optimization techniques: automated exposure control; mA and/or kV adjustment per patient size (includes targeted exams where dose is matched to clinical indication); or iterative reconstruction. COMPARISON: MRI Neck/Face/Orbit w/wo [id number] 05/19/2016 11:04 AM RADIATION DOSE METRICS: Total DLP (mGy-cm): 1349.55 FINDINGS: Bones/joints: Status post anterior interbody fusion at C4-C5. Vertebral body heights are preserved. No compression fractures are noted. Vertebral alignment is physiologic. Degenerative facet joint changes are noted throughout the cervical spine. Discs/Spinal canal/Neural foramina: Degenerative disc narrowing noted at C3-C4, C5-C6, and C6-C7. Moderate spinal stenosis noted at these levels. No severe spinal canal stenosis at any level. Lungs: Lung apices are unremarkable. Soft tissues: Unremarkable. CT/CT cervical spin wo con* [id number] IMPRESSION: 1. Status post anterior interbody fusion at C4-C5. Additional degenerative disc and facet joint changes are noted. 2. No acute abnormality of the cervical spine demonstrated.
--- NOTE | 2021-04-23 23:44 | XRR_ITS ---
PROCEDURE INFORMATION: Exam: XR Right Shoulder Exam date and time: 04/23/2021 11:44 PM Age: 65 years old Clinical indication: Injury or trauma; Fall; Blunt trauma (contusions or hematomas); Shoulder; Right TECHNIQUE: Imaging protocol: XR Right shoulder. Views: 2 or more views. COMPARISON: CR XR chest 2V* [id number] 05/16/2019 10:52 AM FINDINGS: Bones/joints: Degenerative arthritis of the glenohumeral joint. No glenohumeral dislocation. Mild degenerative change of the acromioclavicular joint. No widening of the AC joint. No fracture or other acute osseous abnormality. Soft tissues: The soft tissues appear unremarkable. XR/XR shoulder RT min 2V* [id number] IMPRESSION: 1. No acute abnormality demonstrated. 2. Degenerative changes of the glenohumeral joint and the acromioclavicular joint noted.
[2021-04-23 23:51] VITALS: RESP 18; O2SAT 98
[2021-04-23] MEDS: morphine 4 mg/mL SDV 1 mL IM (23:51)
[2021-04-23] MEDS: ondansetron 4 MG Tablet PO (23:52)
--- NOTE | 2021-04-24 02:35 | W.ED.FALL ---
HPI - Fall General: Chief Complaint: Fall Stated Complaint: Injury fell Back of Head Time Seen by Provider: 04/23/21 23:16 History of Present Illness: HPI Narrative: 65-year-old male was sitting in a folding chair, when it broke. He slid to the floor, and struck his head, posteriorly, on a hard floor. He complains of headache, neck ache, and right shoulder ache. No repetitive statements. No loss of consciousness. He is acting essentially normal for his family otherwise. He does take Xarelto. complaint: fall Onset (ago): minute(s) Fall from: chair Fall witnessed: yes, by family Place fall occurred: home Loss of consciousness: None Prolonged down time: no Symptoms prior to fall: none Context: other Location of injury: head and neck Location of injury - extremities: Right: shoulder Severity: moderate Associated symptoms-after fall: Reports headache(s), lightheadedness and neck pain; Denies abdominal pain, chest pain, confusion, difficulty walking, short of breath or weakness Review of Systems Const: Denies: fever(s) Card: Reports: lightheadedness; Denies: chest pain GI: Denies: abdominal pain Musc: Reports: neck pain Neuro: Reports: headache(s); Denies: difficulty walking or confusion PFSH ED PFSH: Medical History Anemia Atrial fibrillation Rate controlled on anticoagulation now Carpal tunnel syndrome Chest pain Patient underwent coronary angiogram which was normal CKD (chronic kidney disease) stage 3, GFR 30-59 ml/min Diastolic heart failure Compensated after IV diuretics GERD (gastroesophageal reflux disease) Gout High risk medication use High risk medication use Neuropathy Osteoarthritis Otalgia Renal insufficiency Improved after IV fluid Rheumatoid arthritis In remission Seronegative rheumatoid arthritis in remission Surgical History History of colonoscopy History of esophagogastroduodenoscopy (EGD) S/P appendectomy S/P carpal tunnel release 2x left S/P cervical disc replacement S/P hernia repair S/P skin cancer resection S/P thyroid surgery S/P tonsillectomy S/P trigger finger release Family History Father Cancer Prostate Hypertension Hypercholesterolemia Heart disease Mother Hypertension Hypercholesterolemia Anesthesia complication Daughter Anesthesia complication Denies family history of Bleeding disorder Social History Alcohol intake: former Lives independently: Yes Household members: spouse Marital status: Current occupational status: disabled History of recent travel: No Alexandra/Lutheran: Buddhism Special alexandra needs: Yes Agree to transfusion: No Physical Exam Const: COMMON NORMALS: no acute distress, patient oriented x3 and alert GENERAL APPEARANCE: cooperative HENMT: COMMON NORMALS: normocephalic HEAD & SCALP: normocephalic Eye: COMMON NORMALS: Equal, round and reactive pupils present and EOMs intact bilaterally PUPIL: Yes Equal, round and reactive pupils present Chest: COMMONS NORMALS: normal inspection of the chest Resp: COMMON NORMALS: normal respiratory effort, No use of accessory muscles and clear to auscultation bilaterally AUSCULTATION: clear to auscultation bilaterally Cardio: COMMON NORMALS: regular rate and regular rhythm RATE: regular rate RHYTHM: regular rhythm GI: COMMON NORMALS: Normal to inspection, nondistended, normoactive bowel sounds present Extremity: NARRATIVE EXTREMITY EXAM: Exam the right shoulder reveals painful range of motion. There is tenderness over the glenohumeral joint and the AC joint. No deformity. Neuro: COMMON NORMALS: patient oriented x3 SENSORIUM/ORIENTATION: Yes alert Course Vital Signs: Vital signs: Vital Signs Temperature 97.1 F L 04/23/21 23:05 Pulse Rate 85 04/23/21 23:05 Respiratory Rate 18 04/23/21 23:51 Blood Pressure 120/73 04/23/21 23:05 Pulse Oximetry 98 04/23/21 23:51 MDM - Fall MDM Narrative: Medical decision making narrative: CT of the head and C-spine are negative. Right elbow x-ray shows some osteoarthritic change. He is acting normally. He will be allowed discharge Discharge Plan Discharge Patient Disposition: Home Clinical Impression: Concussion without loss of consciousness Qualifiers: Encounter type: initial encounter Qualified Code(s): S06.0X0A - Concussion without loss of consciousness, initial encounter Contusion of shoulder, right Qualifiers: Encounter type: initial encounter Qualified Code(s): S40.011A - Contusion of right shoulder, initial encounter Condition: Stable Prescriptions: No Action Trulicity 0.75 mg/0.5 mL pen injector 1.5 mg SUBCUT .Weekly RF: 0 (DME) blood-glucose meter [Accu-Chek Guide Glucose Meter] Misc See Rx Instructions .ROUTE .MEDSUPPLY Qty: 1 RF: 0 (DME) lancets [Accu-Chek Fastclix Lancet Drum] Misc See Rx Instructions .ROUTE .MEDSUPPLY Qty: 200 RF: 3 prednisone 10 mg tablet See Rx Instructions PO .COMPLEX PRN (Reason: gout pain flare) Qty: 30 RF: 1 (DME) Diabetic shoes with molded inserts See Rx Instructions .Route .MEDSUPPLY Qty: 1 RF: 0 (DME) Diabetic shoes with 3 pairs of inserts See Rx Instructions .Route .MEDSUPPLY Qty: 1 RF: 0 ammonium lactate [AmLactin] 12 % lotion 1 applic TOPICAL DAILY PRN (Reason: unknown) RF: 0 fenofibrate nanocrystallized 145 mg tablet 145 mg PO DAILY RF: 0 acyclovir 5 % ointment See Rx Instructions .ROUTE .COMPLEX RF: 0 ergocalciferol (vitamin D2) 50,000 unit capsule 50,000 unit PO .monthly RF: 0 Gold Orantes Ultimate Eczema Rlf 2 % cream topical .prn PRN (Reason: feet) RF: 0 allopurinol 100 mg tablet 200 mg PO DAILY Qty: 60 RF: 3 (DME) pen needle, diabetic 31 gauge x 1/4 needle See Rx Instructions .Route Qty: 100 RF: 3 acetaminophen [Tylenol Extra Strength] 500 mg tablet 1,000 mg PO Q6H PRNRF: 0 furosemide 40 mg tablet 40 mg PO BID Qty: 180 RF: 3 isosorbide mononitrate 30 mg tablet extended release 24 hr 30 mg PO BID Qty: 180 RF: 3 losartan 50 mg tablet 50 mg PO DAILY Qty: 90 RF: 3 metolazone 2.5 mg tablet 1.25 mg PO DAILY Qty: 90 RF: 0 metoprolol tartrate 50 mg tablet See Rx Instructions .ROUTE .COMPLEX Qty: 270 RF: 1 spironolactone 25 mg tablet 12.5 mg PO DAILY Qty: 45 RF: 3 verapamil 240 mg tablet extended release 240 mg PO DAILY Qty: 90 RF: 3 rivaroxaban 20 mg tablet 20 mg PO DAILY Qty: 90 RF: 3 Hold Instructions: Resume on 04/16/21. (DME) Diabetic shoes with inserts See Rx Instructions .Route .MEDSUPPLY Qty: 1 RF: 0 ketoconazole 2 % cream See Rx Instructions .ROUTE .COMPLEX Qty: 60 RF: 2 hydrocortisone 2.5 % cream 1 applic topical BID PRN (Reason: rash) Qty: 28 RF: 2 nitroglycerin [Nitrostat] 0.4 mg tablet, sublingual 0.4 mg SUBLINGUAL DIRECTED 30 Days Qty: 25 RF: 6 pantoprazole 40 mg tablet,delayed release (DR/EC) 40 mg PO BID Qty: 60 RF: 2 (DME) Accu-Chek Guide test strips Strip See Rx Instructions .ROUTE .MEDSUPPLY Qty: 300 RF: 3 ezetimibe 10 mg tablet 10 mg PO DAILY Qty: 90 RF: 3 (DME) pen needle, diabetic [BD Gabriella 2nd Gen Pen Needle] 32 gauge x 5/32 needle See Rx Instructions .Route Qty: 100 RF: 3 triamcinolone acetonide 0.1 % cream 1 applic topical BID PRN (Reason: joint inflamation) RF: 0 glipizide 10 mg tablet 10 mg PO BID RF: 0 diclofenac sodium 1 % gel See Rx Instructions .ROUTE .COMPLEX PRN (Reason: Pain, Mild) RF: 0 Discharge Orders: Discharge ED (Routine); Ordered 04/24/21 Ordered By: Aston Bowers Referrals: Lilian Mcintyre FNP [Primary Care Provider] - 4-7 days Patient Instructions: Concussion (ED), Shoulder Pain (ED) Activity Restrictions/Additional Instructions: Return for vomiting, mental status changes, lethargy, worsening headache despite treatment, other concerning symptoms. Coding Level of Care Code ED Fibreglass Laminator for Marcelle Bang
== END 2021-04-24 00:54 | disposition home or self-care (01) ==
PROVIDERS: Emergency Provider Emergency Medicine; PCP Nurse Practitioner Family
DX: S06.0X0A Concussion without loss of consciousness, initial encounter (principal); S40.011A Contusion of right shoulder, initial encounter; Z79.84 Long term (current) use of oral hypoglycemic drugs; N18.30 Chronic kidney disease, stage 3 unspecified; W07.XXXA Fall from chair, initial encounter
CPT/HCPCS: 70450; 72125; 73030; 96372; 99283; J2270; Q0162

== ENCOUNTER 2021-04-25 15:17 | Outpatient (CLI) | payer MEDICARE, MEDICAID, SELFPAY ==
--- NOTE | 2021-04-25 15:21 | CT_ITS ---
WS: [id number] Exam: CT neck wo con [id number] Date/Time of Exam: 04/25/2021 3:21 PM Reason For Exam: E04.1 - Nontoxic single thyroid nodule DLP: 1363.[address] scans at [facility] use at least one of these dose optimization techniques: automated e xposure control; mA and/or kV adjustment per patient size (includes targeted exams where dose is matc hed to clinical indication); or iterative reconstruction. There was no indication of neck mass or significant cervical lymphadenopathy. There appears to be goi trous enlargement of the thyroid lobes with substernal extension of thyroid tissue. A definite discre te thyroid mass or nodule is difficult to identify however detail is limited due to the size the karlo ent and hardware in the cervical spine. The airway is patent. No significant cervical lymphadenopathy . The submandibular glands and parotid glands are symmetrical side to side. No masses noted in the re gion of the tongue base. Upper lung zones are clear. No destructive bone lesions are seen. Straighten ing of the C-spine. CT/CT neck wo con [id number] IMPRESSION: 1. Substernal goiter. 2. A discrete mass or nodule is not definitely seen in the thyroid gland howeve r detail is limited due to the size the patient and metallic deflexion artifact from hardware in the cervical spine. 3. No other sign of neck mass and no significant cervical lymphadenopathy.
== END 2021-04-25 15:18 | disposition home or self-care (01) ==
PROVIDERS: PCP Nurse Practitioner Family; Visit Provider Otolaryngology
DX: E04.1 Nontoxic single thyroid nodule (principal)
CPT/HCPCS: 70490

== ENCOUNTER → 2021-06-15 12:30 | Outpatient (BNVA) | payer MEDICARE, MEDICAID, SELFPAY | PROVIDERS: PCP Nurse Practitioner Family; Visit Provider Internal Medicine Rheumatology | DX: I48.19 Other persistent atrial fibrillation (principal); M06.00 Rheumatoid arthritis without rheumatoid factor, unspecified site; I50.32 Chronic diastolic (congestive) heart failure; M1A.3790 Chronic gout due to renal impairment, unspecified ankle and foot, without tophus (tophi); Z79.899 Other long term (current) drug therapy; N18.30 Chronic kidney disease, stage 3 unspecified; D64.9 Anemia, unspecified; E66.9 Obesity, unspecified; Z68.43 Body mass index [BMI] 50.0-59.9, adult; Z87.19 Personal history of other diseases of the digestive system | CPT/HCPCS: 80048; 99213 ==

== ENCOUNTER 2021-06-28 14:26 | Emergency (ER) | payer MEDICARE, MEDICAID, SELFPAY ==
[2021-06-28 14:48] VITALS: BP 180/80; PULSE 80; RESP 18; TEMP 36.9; O2SAT 95; BMI 59.1
--- NOTE | 2021-06-28 15:05 | ECG_ITS ---
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 Measurements Intervals Benson Rate: 80 P: AR: QRS: -57 QRSD: 122 T: -52 QT: 336 QTc: 388 Interpretive Statements ATRIAL FIBRILLATION RIGHT BUNDLE BRANCH BLOCK LEFT ANTERIOR FASCICULAR BLOCK PROBABLE SEPTAL MYOCARDIAL INFARCTION , PROBABLY OLD MODERATE T-WAVE ABNORMALITY, CONSIDER INFERIOR ISCHEMIA Compared to ECG 06/17/2019 19:46:12 Right bundle-branch block now present Myocardial infarct finding now present T-wave abnormality now present Possible ischemia now present Incomplete right bundle-branch block no longer present Electronically Signed On 06-28-2021 17:42:19 MEMS ENGINEER by Funmilayo Brown M.D. [id number]
--- NOTE | 2021-06-28 15:05 | XR_ITS ---
WS: [id number] Exam: XR chest 1V portable [id number] Date/Time of Exam: 06/28/2021 3:14 PM Reason For Exam: chest pain Comparison 05/16/2019. The lungs are clear and fully expanded. Normal cardiomediastinal silhouette for portable technique. C hronic elevation of the right diaphragm. Fusion hardware noted in the lower C-spine. Bony structures are intact. XR/XR chest 1V portable [id number] IMPRESSION: 1. No acute cardiopulmonary finding.
[2021-06-28 15:24] LABS: Basophils % 0.3 %; Eosinophils % 0.3 %; Hematocrit 36.4 % (42.0-52.0); Lymphocytes # 1.5 10^3/uL (0.8-4.8); Lymphocytes % 16.4 %; Mean Corpuscular Hemoglobin 27.8 pg (28.0-34.0); Mean Corpuscular Volume 84.5 fl (80-94); Mean Platelet Volume 10.1 fL (7.4-10.4); Monocytes # 0.6 10^3/uL (0.2-0.9); Monocytes % 6.2 %; Neutrophils % 76.4 %; Nucleated Red Blood Cells % 0 %; Platelet Count 245 10^3/cmm (130-400); Red Blood Count 4.31 10^6/uL (4.1-5.3); Red Cell Distribution Width 12.5 % (12.1-15.1)
[2021-06-28 15:37] VITALS: BP 140/88; PULSE 80; RESP 24
--- NOTE | 2021-06-28 15:46 | ED_ITS ---
Documented by User: Qamar Morales DO 06/29/21 07:20 HPI - Chest Pain General: Chief Complaint: Chest Pain Stated Complaint: fluid overload Time Seen by Provider: 06/28/21 14:52 Source: patient Mode of arrival: ambulatory History of Present Illness: 65-year-old male presents emergency room with co mplaints of fluid retention and chest discomfort. He said chest discomfort for the last couple of weeks. 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 He does see nephrology and recently they stopped his valsartan and his cardiology nurse practitioner increased his metaxalone. He felt like he has not really noticed any increased fluid output since since then. He does have a history of atrial fibrillation. June 2019 patient had an angiogram that showed no significant coronary artery disease. At that time he was having worsening congestive heart failure. MD complaint: chest pain Onset (ago): week(s) (2) Timing of current episode: episodic Onset: during exertion Pain location: left chest Pain radiation: none Severity: mild Quality: heaviness Relieving factors: rest Exacerbating factors: exertion Associated symptoms: Reports dyspnea and leg edema; Deny abdominal pain, diaphoresis, fever(s), nausea, palpitations, sense of impending doom, syncope or vomiting Treatment prior to arrival: none Review of Systems Const: Denies: fever(s) or diaphoresis ENMT: Denies: throat pain, ear or mastoid pain, nasal discharge or nasal congestion Card: Denies: palpitations or syncope Resp: Reports: dyspnea GI: Denies: abdominal pain, nausea or vomiting : Denies: flank pain, dysuria, urinary frequency or urinary urgency Skin/Breast: Denies: rash or pruritus PFSH ED PFSH: Medical History Anemia Atrial fibrillation on anticoagulation Carpal tunnel syndrome Chest pain Patient underwent coronary angiogram which was normal CKD (chronic kidney disease) stage 3, GFR 30-59 ml/min Diastolic heart failure GERD (gastroesophageal reflux disease) Gout High risk medication use High risk medication use Neuropathy Osteoarthritis Otalgia Renal insufficiency Improved after IV fluid Rheumatoid arthritis In remission Seronegative rheumatoid arthritis in remission Surgical History History of colonoscopy History of esophagogastroduodenoscopy (EGD) S/P appendectomy S/P carpal tunnel release 2x left S/P cervical disc replacement S/P hernia repair S/P skin cancer resection S/P thyroid surgery S/P tonsillectomy S/P trigger finger release Family History Father Cancer Prostate Hypertension Hypercholesterolemia Heart disease Mother Hypertension Hypercholesterolemia Anesthesia complication Daughter Anesthesia complication Denies family history of Bleeding disorder Social History Smoking and tobacco status: never smoked Alcohol intake: former Lives independently: Yes Household members: spouse Marital status: Current occupational status: disabled History of recent travel: No Alexandra/Gnosticism: [employer] Special alexandra needs: Yes Agree to transfusion: No Physical Exam Const: COMMON NORMALS: patient oriented x3 and alert GENERAL APPEARANCE: cooperative, comfortable, well kempt and well developed NUTRITIONAL APPEARANCE: obese morbidly obese ORIENTATION/CONSCIOUSNESS: Yes awake, Yes oriented to person and Yes oriented to place HENMT: COMMON NORMALS: normocephalic and atraumatic HEAD & SCALP: normocephalic and atraumatic Neck/C-Spine: COMMON NORMALS: no meningeal signs Resp: COMMON NORMALS: normal respiratory effort, No retractions, No use of accessory muscles and clear to auscultation bilaterally AUSCULTATION: clear to auscultation bilaterally Cardio: COMMON NORMALS: regular rate and regular rhythm RATE: regular rate RHYTHM: regular rhythm HEART SOUNDS: no murmurs GI: COMMON NORMALS: Normal to inspection, nondistended, normoactive bowel sounds present, Soft to palpation and No hepatosplenomegaly present AUSCULTAT ION: Yes normoactive bowel sounds PALPATION: Yes Soft to palpation and Yes No hepatosplenomegaly present : COMMON NORMALS: Yes no CVA tenderness BLADDER/KIDNEY EXAM: Yes no CVA t enderness Back/Pelvis: COMMON NORMALS: no CVA tenderness LUMBAR SPINE/LOWER BACK: Yes normal to inspection Extremity: COMMON NORMALS: no calf tenderness NARRATIVE EXTREMITY EXAM: 2+ edema lower extremities Neuro: COMMON NORMALS: patient oriented x3 SENSORIUM/ORIENTATION: Yes alert, Yes oriented to person and Yes oriented to place MENINGEAL SIGNS: Yes no meningeal signs Psych: APPEARANCE: Yes well kempt Skin: COMMON NORMALS: no rashes or lesions noted and turgor normal GENERAL SKIN EXAM: no rashes or lesions noted and turgor normal Course Vital Signs: Vital signs: Vital Signs Temperature 98.4 F 06/28/21 14:48 Pulse Rate 85 06/28/21 19:37 Respiratory Rate 15 06/28/21 19:37 Blood Pressure 130/84 06/28/21 19:37 Pulse Oximetry 93 06/28/21 19:37 MDM - Chest Pain Medical Decision Making Care signed out to Dr. Martinez at change of shift. See final notes for diagnosis and disposition. Took patient over from Dr. 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 He understands and agrees to plan. Lab Data : 06/28/21 15:15 06/28/21 15:15 Radiology Impressions Chest X-Ray 06/28/21 15:05 IMPRESSION: 1. No acute cardiopulmonary finding. Laboratory Results WBC 9.0 10^3/uL (4.0-10.0) 06/28/21 15:15 RBC 4.31 10^6/uL (4.1-5.3) 06/28/21 15:15 Hgb 12.0 g/dL (11.7-16.6) 06/28/21 15:15 Hct 36.4 % (42.0-52.0) L 06/28/21 15:15 MCV 84.5 fl (80-94) 06/28/21 15:15 MCH 27.8 pg (28.0-34.0) L 06/28/21 15:15 MCHC 33.0 g/dL (30.0-36.0) 06/28/21 15:15 RDW 12.5 % (12.1-15.1) 06/28/21 15:15 Plt Count 245 10^3/cmm (130-400) 06/28/21 15:15 MPV 10.1 fL (7.4-10.4) 06/28/21 15:15 Neut % (Auto) 76.4 % 06/28/21 15:15 Lymph % (Auto) 16.4 % 06/28/21 15:15 Kimble % (Auto) 6.2 % 06/28/21 15:15 Eos % (Auto) 0.3 % 06/28/21 15:15 Baso % (Auto) 0.3 % 06/28/21 15:15 Neut # (Auto) 6.90 10^3/uL (1.8-7.7) 06/28/21 15:15 Lymph # (Auto) 1.5 10^3/uL (0.8-4.8) 06/28/21 15:15 Kimble # (Auto) 0.6 10^3/uL (0.2-0.9) 06/28/21 15:15 Eos # (Auto) 0.0 10^3/uL (0.0-0.8) 06/28/21 15:15 Baso # (Auto) 0.0 10^3/uL (0.0-0.1) 06/28/21 15:15 Nucleated RBC % (auto) 0 % 06/28/21 15:15 Nucleated RBCs # 0.0 /100WBC 06/28/21 15:15 Specimen Type Arterial 06/28/21 17:19 Sample Site Radial, right 06/28/21 17:19 ABG pH 7.46 (7.35-7.45) H 06/28/21 17:19 ABG pCO2 43.9 mmHg (35-45) 06/28/21 17:19 ABG pO2 82.9 mmHg (80.0-100.0) 06/28/21 17:19 ABG HCO3 31.4 mmol/L (22-26) H 06/28/21 17:19 ABG O2 Saturation 96.8 06/28/21 17:19 ABG Base Excess 6.8 mmol/L (-2.0-2.0) H 06/28/21 17:19 Gideon Test Pos 06/28/21 17:19 A-a O2 Gradient 1.7 mmHg (5-10) L 06/28/21 17:19 Hematocrit 36.1 % (42-52) L 06/28/21 17:19 Hgb O2 Saturation 94.2 % (95-100) L 06/28/21 17:19 Carboxyhemoglobin 1.5 %THgb (0.4-20.1) 06/28/21 17:19 Methemoglobin 1.1 % (0.4-1.5) 06/28/21 17:19 Total Hemoglobin 11.8 g/dL (14-18) L 06/28/21 17:19 Sodium 136.0 mmol/L (131-143) 06/28/21 17:19 Potassium 3.4 mmol/L (3.5-5.0) L 06/28/21 17:19 Glucose 441.0 mg/dL (70-115) H 06/28/21 17:19 Ionized Calcium 1.2 mmol/L (1.1-1.4) 06/28/21 17:19 O2 Delivery Device Room air 06/28/21 17:19 FiO2 21.0 % 06/28/21 17:19 Truck Jumper ID glc 06/28/21 17:19 Sodium 130 mmol/L (136-145) L 06/28/21 15:15 Potassium 3.6 mmol/L (3.5-5.1) 06/28/21 15:15 Chloride 89 mmol/L (98-107) L 06/28/21 15:15 Carbon Dioxide 25 mmol/L (22-29) 06/28/21 15:15 Anion Gap 19.6 (5-19) H 06/28/21 15:15 BUN 37 mg/dL (8-23) H 06/28/21 15:15 Creatinine 1.5 mg/dL (0.7-1.2) H 06/28/21 15:15 GFR Calculation 47.0 mL/min (90-130) L 06/28/21 15:15 Glucose 520 mg/dL (65-115) H* 06/28/21 15:15 POC Glucose 388 mg/dL (70-110) H 06/28/21 19:16 Calculated Osmolality 302 mOsm/kg (285-295) H 06/28/21 15:15 Calcium 9.3 mg/dL (8.5-10.5) 06/28/21 15:15 Total Bilirubin 0.2 mg/dL (0.15-1.2) 06/28/21 15:15 AST 23 U/L (0-40) 06/28/21 15:15 ALT 27 U/L (0-41) 06/28/21 15:15 Alkaline Phosphatase 74 IU/L (40-130) 06/28/21 15:15 Troponin T Baseline 21 ng/L (0-15) H 06/28/21 15:15 Troponin T 120 Minute 19.45 ng/L (0-15) H 06/28/21 17:15 Delta Troponin T -1.55 ABS# (0-10) L 06/28/21 17:15 NT-Pro-B Natriuret Pep 523 pg/mL (0-125) H 06/28/21 15:15 Total Protein 7.0 g/dL (6.6-8.7) 06/28/21 15:15 Albumin 3.8 g/dL (3.5-5.2) 06/28/21 15:15 Globulin 3.2 g/dL (1.3-4.6) 06/28/21 15:15 Serum Ketones Negative (Negative) 06/28/21 17:15 Discharge Plan Discharge Patient Disposition: Home Clinical Impression: Hyperglycemia Chest pain Qualifiers: Chest pain type: unspecified Qualified Code(s): R07.9 - Chest pain, unspecified Condition: Stable Prescriptions: No Action Trulicity 0.75 mg/0.5 mL pen injector 1.5 mg SUBCUT Q7D 0RF Rx Instructions: ON FRIDAYS (DME) blood-glucose meter [Accu-Chek Guide Glucose Meter] Misc See Rx Instructions .ROUTE .MEDSUPPLY Qty: 1 0RF Rx Instructions: As directed (DME) lancets [Accu-Chek Fastclix Lancet Drum] Misc See Rx Instructions .ROUTE .MEDSUPPLY Qty: 200 3RF Rx Instructions: three times/day prednisone 10 mg tablet See Rx Instructions PO .COMPLEX PRN (Reason: gout pain flare) Qty: 30 1RF Rx Instructions: take 1 daily for 4-5 days as needed for gout flare PO PRN; (DME) Diabetic shoes with molded inserts See Rx Instructions .Route .MEDSUPPLY Qty: 1 0RF Rx Instructions: As directed (DME) Diabetic shoes with 3 pairs of inserts See Rx Instructions .Route .MEDSUPPLY Qty: 1 0RF Rx Instructions: As directed metoprolol tartrate 100 mg tablet 100 mg PO BID Qty: 180 3RF ammonium lactate [AmLactin] 12 % lotion 1 applic TOPICAL DAILY PRN (Reason: Rash) 0RF fenofibrate nanocrystallized 145 mg tablet 145 mg PO DAILY 0RF acyclovir 5 % ointment See Rx Instructions .ROUTE .COMPLEX 0RF Rx Instructions: aaa topically qid prn ergocalciferol (vitamin D2) 50,000 unit capsule 50,000 unit PO Q30D 0RF Gold Orantes Ultimate Eczema Rlf 2 % cream 1 applic topical .prn PRN (Reason: feet) 0RF (DME) pen needle, diabetic 31 gauge x 1/ needle See Rx Instructions .Route Qty: 100 3RF Rx Instructions: As directed acetaminophen [Tylenol Extra Strength] 500 mg tablet 1,000 mg PO Q6H PRN (Reason: Pain) 0RF furosemide 40 mg tablet 40 mg PO BID Qty: 180 3RF isosorbide mononitrate 30 mg tablet extended release 24 hr 30 mg PO BID Qty: 180 3RF spironolactone 25 mg tablet 12.5 mg PO DAILY Qty: 45 3RF rivaroxaban 20 mg tablet 20 mg PO DAILY Qty: 90 3RF Hold Instructions: Resume on 04/16/21. potassium chloride 20 mEq tablet extended release 20 meq PO DAILY 0RF (DME) Diabetic shoes with inserts See Rx Instructions .Route .MEDSUPPLY Qty: 1 0RF Rx Instructions: As directed ketoconazole 2 % cream See Rx Instructions .ROUTE .COMPLEX Qty: 60 2RF Dose Instruction: APPLY CREAM TOPICALLY TO AFFECTED AREA TWICE DAILY FOR 30 DAYS Rx Instructions: APPLY CREAM TOPICALLY TO AFFECTED AREA TWICE DAILY FOR 30 DAYS nitroglycerin [Nitrostat] 0.4 mg tablet, sublingual 0.4 mg SUBLINGUAL DIRECTED 30 Days Qty: 25 6RF (DME) Accu-Chek Guide test strips Strip See Rx Instructions .ROUTE .MEDSUPPLY Qty: 300 3RF Rx Instructions: test blood sugar three times a day ezetimibe 10 mg tablet 10 mg PO DAILY Qty: 90 3RF (DME) pen needle, diabetic [BD Gabriella 2nd Gen Pen Needle] 32 gauge x needle See Rx Instructions .Route Qty: 100 3RF Rx Instructions: As directed metolazone 2.5 mg tablet 1.25 mg PO DAILY Qty: 90 0RF Rx Instructions: Take 30 minutes before morning Lasix dose. glipizide 10 mg tablet 10 mg PO BID Qty: 180 3RF pantoprazole 40 mg tablet,delayed release (DR/EC) 40 mg PO BID Qty: 180 2RF verapamil 240 mg tablet extended release 240 mg PO DAILY Qty: 90 3RF triamcinolone acetonide 0.1 % cream 1 applic topical BID PRN (Reason: joint inflamation) 0RF allopurinol 100 mg tablet 200 mg PO BEDTIME 0RF diclofenac sodium 1 % gel See Rx Instructions .ROUTE .COMPLEX PRN (Reason: Pain, Mild) 0RF Rx Instructions: 4 grams topically qid prn Discharge Orders: Discharge ED (Routine); Ordered 06/28/21 Ordered By: Cleopatra Martinez Referrals: Lilian Mcintyre FNP [Primary Care Provider] - Discharge Diet: Advance as tolerated Discharge Activity: Resume usual activity Patient Instructions: Chest Pain (ED) Coding Level of Care Code ED Baggage [place] for Chg Fwd Exam Comprehensive Documented by User: Cleopatra Martinez MD 06/28/21 19:26 HPI - Chest Pain General: Chief Complaint: Chest Pain Stated Complaint: fluid overload Time Seen by Provider: 06/28/21 14:52 [facility] ED PFSH: Medical History Anemia Atrial fibrillation on anticoagulation Carpal tunnel syndrome Chest pain Patient underwent coronary angiogram which was normal CKD (chronic kidney disease) stage 3, GFR 30-59 ml/min Diastolic heart failure GERD (gastroesophageal reflux disease) Gout High risk medication use High risk medication use Neuropathy Osteoarthritis Otalgia Renal insufficiency Improved after IV fluid Rheumatoid arthritis In remission Seronegative rheumatoid arthritis in remission Surgical History History of colonoscopy History of esophagogastroduodenoscopy (EGD) S/P appendectomy S/P carpal tunnel release 2x left S/P cervical disc replacement S/P hernia repair S/P skin cancer resection S/P thyroid surgery S/P tonsillectomy S/P trigger finger release Family History Father Cancer Prostate Hypertension Hypercholesterolemia Heart disease Mother Hypertension Hypercholesterolemia Anesthesia complication Daughter Anesthesia complication Denies family history of Bleeding disorder Social History Smoking and tobacco status: never smoked Alcohol intake: former Lives independently: Yes Household members: spouse Marital status: Current occupational status: disabled History of recent travel: No Alexandra/Gnosticism: [employer] Special alexandra needs: Yes Agree to transfusion: No Course Vital Signs: Vital signs: Vital Signs Temperature 98.4 F 06/28/21 14:48 Pulse Rate 85 06/28/21 19:37 Respiratory Rate 15 06/28/21 19:37 Blood Pressure 130/84 06/28/21 19:37 Pulse Oximetry 93 06/28/21 19:37 MDM - Chest Pain Medical Decision Making Took patient over from Dr. 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 He understands and agrees to plan. Lab Data : 06/28/21 15:15 06/28/21 15:15 Radiology Impressions Chest X-Ray 06/28/21 15:05 IMPRESSION: 1. No acute cardiopulmonary finding. Laboratory Results WBC 9.0 10^3/uL (4.0-10.0) 06/28/21 15:15 RBC 4.31 10^6/uL (4.1-5.3) 06/28/21 15:15 Hgb 12.0 g/dL (11.7-16.6) 06/28/21 15:15 Hct 36.4 % (42.0-52.0) L 06/28/21 15:15 MCV 84.5 fl (80-94) 06/28/21 15:15 MCH 27.8 pg (28.0-34.0) L 06/28/21 15:15 MCHC 33.0 g/dL (30.0-36.0) 06/28/21 15:15 RDW 12.5 % (12.1-15.1) 06/28/21 15:15 Plt Count 245 10^3/cmm (130-400) 06/28/21 15:15 MPV 10.1 fL (7.4-10.4) 06/28/21 15:15 Neut % (Auto) 76.4 % 06/28/21 15:15 Lymph % (Auto) 16.4 % 06/28/21 15:15 Kimble % (Auto) 6.2 % 06/28/21 15:15 Eos % (Auto) 0.3 % 06/28/21 15:15 Baso % (Auto) 0.3 % 06/28/21 15:15 Neut # (Auto) 6.90 10^3/uL (1.8-7.7) 06/28/21 15:15 Lymph # (Auto) 1.5 10^3/uL (0.8-4.8) 06/28/21 15:15 Kimble # (Auto) 0.6 10^3/uL (0.2-0.9) 06/28/21 15:15 Eos # (Auto) 0.0 10^3/uL (0.0-0.8) 06/28/21 15:15 Baso # (Auto) 0.0 10^3/uL (0.0-0.1) 06/28/21 15:15 Nucleated RBC % (auto) 0 % 06/28/21 15:15 Nucleated RBCs # 0.0 /100WBC 06/28/21 15:15 Specimen Type Arterial 06/28/21 17:19 Sample Site Radial, right 06/28/21 17:19 ABG pH 7.46 (7.35-7.45) H 06/28/21 17:19 ABG pCO2 43.9 mmHg (35-45) 06/28/21 17:19 ABG pO2 82.9 mmHg (80.0-100.0) 06/28/21 17:19 ABG HCO3 31.4 mmol/L (22-26) H 06/28/21 17:19 ABG O2 Saturation 96.8 06/28/21 17:19 ABG Base Excess 6.8 mmol/L (-2.0-2.0) H 06/28/21 17:19 Gideon Test Pos 06/28/21 17:19 A-a O2 Gradient 1.7 mmHg (5-10) L 06/28/21 17:19 Hematocrit 36.1 % (42-52) L 06/28/21 17:19 Hgb O2 Saturation 94.2 % (95-100) L 06/28/21 17:19 Carboxyhemoglobin 1.5 %THgb (0.4-20.1) 06/28/21 17:19 Methemoglobin 1.1 % (0.4-1.5) 06/28/21 17:19 Total Hemoglobin 11.8 g/dL (14-18) L 06/28/21 17:19 Sodium 136.0 mmol/L (131-143) 06/28/21 17:19 Potassium 3.4 mmol/L (3.5-5.0) L 06/28/21 17:19 Glucose 441.0 mg/dL (70-115) H 06/28/21 17:19 Ionized Calcium 1.2 mmol/L (1.1-1.4) 06/28/21 17:19 O2 Delivery Device Room air 06/28/21 17:19 FiO2 21.0 % 06/28/21 17:19 Truck Jumper ID glc 06/28/21 17:19 Sodium 130 mmol/L (136-145) L 06/28/21 15:15 Potassium 3.6 mmol/L (3.5-5.1) 06/28/21 15:15 Chloride 89 mmol/L (98-107) L 06/28/21 15:15 Carbon Dioxide 25 mmol/L (22-29) 06/28/21 15:15 Anion Gap 19.6 (5-19) H 06/28/21 15:15 BUN 37 mg/dL (8-23) H 06/28/21 15:15 Creatinine 1.5 mg/dL (0.7-1.2) H 06/28/21 15:15 GFR Calculation 47.0 mL/min (90-130) L 06/28/21 15:15 Glucose 520 mg/dL (65-115) H* 06/28/21 15:15 POC Glucose 388 mg/dL (70-110) H 06/28/21 19:16 Calculated Osmolality 302 mOsm/kg (285-295) H 06/28/21 15:15 Calcium 9.3 mg/dL (8.5-10.5) 06/28/21 15:15 Total Bilirubin 0.2 mg/dL (0.15-1.2) 06/28/21 15:15 AST 23 U/L (0-40) 06/28/21 15:15 ALT 27 U/L (0-41) 06/28/21 15:15 Alkaline Phosphatase 74 IU/L (40-130) 06/28/21 15:15 Troponin T Baseline 21 ng/L (0-15) H 06/28/21 15:15 Troponin T 120 Minute 19.45 ng/L (0-15) H 06/28/21 17:15 Delta Troponin T -1.55 ABS# (0-10) L 06/28/21 17:15 NT-Pro-B Natriuret Pep 523 pg/mL (0-125) H 06/28/21 15:15 Total Protein 7.0 g/dL (6.6-8.7) 06/28/21 15:15 Albumin 3.8 g/dL (3.5-5.2) 06/28/21 15:15 Globulin 3.2 g/dL (1.3-4.6) 06/28/21 15:15 Serum Ketones Negative (Negative) 06/28/21 17:15 EKG Data EKG 1: I personally reviewed and interpreted this EKG as follows: EKG interpretation date: 06/28/21 EKG interpretation time: 15:56 Interpretation: afib hr [address] or t wave abnormalities qrs 124q tc 415 EKG 2: I personally reviewed and interpreted this EKG as follows: EKG interpretation date: 06/28/21 EKG interpretation time: 18:11 Interpretation: afib hr [address] or t wave abnormalities qrs 122 qtc 415 Discharge Plan Discharge Patient Disposition: Home Clinical Impression: Hyperglycemia Chest pain Qualifiers: Chest pain type: unspecified Qualified Code(s): R07.9 - Chest pain, unspecified Condition: Stable Prescriptions: No Action Trulicity 0.75 mg/0.5 mL pen injector 1.5 mg SUBCUT Q7D 0RF Rx Instructions: ON FRIDAYS (DME) blood-glucose meter [Accu-Chek Guide Glucose Meter] Misc See Rx Instructions .ROUTE .MEDSUPPLY Qty: 1 0RF Rx Instructions: As directed (DME) lancets [Accu-Chek Fastclix Lancet Drum] Misc See Rx Instructions .ROUTE .MEDSUPPLY Qty: 200 3RF Rx Instructions: three times/day prednisone 10 mg tablet See Rx Instructions PO .COMPLEX PRN (Reason: gout pain flare) Qty: 30 1RF Rx Instructions: take 1 daily for 4-5 days as needed for gout flare PO PRN; (DME) Diabetic shoes with molded inserts See Rx Instructions .Route .MEDSUPPLY Qty: 1 0RF Rx Instructions: As directed (DME) Diabetic shoes with 3 pairs of inserts See Rx Instructions .Route .MEDSUPPLY Qty: 1 0RF Rx Instructions: As directed metoprolol tartrate 100 mg tablet 100 mg PO BID Qty: 180 3RF ammonium lactate [AmLactin] 12 % lotion 1 applic TOPICAL DAILY PRN (Reason: Rash) 0RF fenofibrate nanocrystallized 145 mg tablet 145 mg PO DAILY 0RF acyclovir 5 % ointment See Rx Instructions .ROUTE .COMPLEX 0RF Rx Instructions: aaa topically qid prn ergocalciferol (vitamin D2) 50,000 unit capsule 50,000 unit PO Q30D 0RF Gold Orantes Ultimate Eczema Rlf 2 % cream 1 applic topical .prn PRN (Reason: feet) 0RF (DME) pen needle, diabetic 31 gauge x 1/4 needle See Rx Instructions .Route Qty: 100 3RF Rx Instructions: As directed acetaminophen [Tylenol Extra Strength] 500 mg tablet 1,000 mg PO Q6H PRN (Reason: Pain) 0RF furosemide 40 mg tablet 40 mg PO BID Qty: 180 3RF isosorbide mononitrate 30 mg tablet extended release 24 hr 30 mg PO BID Qty: 180 3RF spironolactone 25 mg tablet 12.5 mg PO DAILY Qty: 45 3RF rivaroxaban 20 mg tablet 20 mg PO DAILY Qty: 90 3RF Hold Instructions: Resume on 04/16/21. potassium chloride 20 mEq tablet extended release 20 meq PO DAILY 0RF (DME) Diabetic shoes with inserts See Rx Instructions .Route .MEDSUPPLY Qty: 1 0RF Rx Instructions: As directed ketoconazole 2 % cream See Rx Instructions .ROUTE .COMPLEX Qty: 60 2RF Dose Instruction: APPLY CREAM TOPICALLY TO AFFECTED AREA TWICE DAILY FOR 30 DAYS Rx Instructions: APPLY CREAM TOPICALLY TO AFFECTED AREA TWICE DAILY FOR 30 DAYS nitroglycerin [Nitrostat] 0.4 mg tablet, sublingual 0.4 mg SUBLINGUAL DIRECTED 30 Days Qty: 25 6RF (DME) Accu-Chek Guide test strips Strip See Rx Instructions .ROUTE .MEDSUPPLY Qty: 300 3RF Rx Instructions: test blood sugar three times a day ezetimibe 10 mg tablet 10 mg PO DAILY Qty: 90 3RF (DME) pen needle, diabetic [BD Gabriella 2nd Gen Pen Needle] 32 gauge x 5/32 needle See Rx Instructions .Route Qty: 100 3RF Rx Instructions: As directed metolazone 2.5 mg tablet 1.25 mg PO DAILY Qty: 90 0RF Rx Instructions: Take 30 minutes before morning Lasix dose. glipizide 10 mg tablet 10 mg PO BID Qty: 180 3RF pantoprazole 40 mg tablet,delayed release (DR/EC) 40 mg PO BID Qty: 180 2RF verapamil 240 mg tablet extended release 240 mg PO DAILY Qty: 90 3RF triamcinolone acetonide 0.1 % cream 1 applic topical BID PRN (Reason: joint inflamation) 0RF allopurinol 100 mg tablet 200 mg PO BEDTIME 0RF diclofenac sodium 1 % gel See Rx Instructions .ROUTE .COMPLEX PRN (Reason: Pain, Mild) 0RF Rx Instructions: 4 grams topically qid prn Discharge Orders: Discharge ED (Routine); Ordered 06/28/21 Ordered By: Cleopatra Martinez Referrals: Lilian Mcintyre FNP [Primary Care Provider] - Discharge Diet: Advance as tolerated Discharge Activity: Resume usual activity Patient Instructions: Chest Pain (ED) Coding Level of Care Code ED Baggage [place] for Sussyg Fwd Exam Comprehensive
[2021-06-28 16:00] VITALS: BP 130/86; RESP 24; O2SAT 97
[2021-06-28 16:03] LABS: Troponin(5th) Baseline 21 ng/L (0-15)
[2021-06-28 16:39] LABS: Alanine Aminotransferase 27 U/L (0-41); Albumin Level 3.8 g/dL (3.5-5.2); Alkaline Phosphatase 74 IU/L (40-130); Aspartate Amino Transferase 23 U/L (0-40); Blood Urea Nitrogen 37 mg/dL (8-23); Calcium 9.3 mg/dL (8.5-10.5); Carbon Dioxide 25 mmol/L (22-29); Chloride 89 mmol/L (98-107); Globulin 3.2 g/dL (1.3-4.6); NT Pro B Type Natriuretic Pept 523 pg/mL (0-125); Osmolality Calculated 302 mOsm/kg (285-295); Sodium 130 mmol/L (136-145); Total Bilirubin 0.2 mg/dL (0.15-1.2)
[2021-06-28] MEDS: FUROsemide 10 mg/mL SDV 10mL 60 MG IVP (16:40)
[2021-06-28 16:42] LABS: Anion Gap 19.6 (5-19); Glucose 520 mg/dL (65-115); Potassium 3.6 mmol/L (3.5-5.1)
--- NOTE | 2021-06-28 17:05 | ECG_ITS ---
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 Measurements Intervals [place] Rate: 79 P: [place]: QRS: -58 QRSD: 124 T: 18 QT: 414 QTc: 475 Interpretive Statements ATRIAL FIBRILLATION RIGHT BUNDLE BRANCH BLOCK [120+ ms QRS DURATION, UPRIGHT V1, 40+ ms S IN I/aVL/V4/V5/V6] LEFT ANTERIOR FASCICULAR BLOCK [QRS AXIS <= -45, QR IN I, RS IN II] Compared to ECG 06/17/2019 19:46:12 Right bundle-branch block now present Incomplete right bundle-branch block no longer present Electronically Signed On 06-28-2021 17:44:08 AUTOMATION MANAGER by Funmilayo Brown M.D. [id number]
[2021-06-28 17:29] LABS: ABG PCO2 43.9 mmHg (35-45); ABG PH Result 7.46 (7.35-7.45); Alveolar-Arterial Oxygen Gradi 1.7 mmHg (5-10); Arterial Blood Gas Hematocrit 36.1 % (42-52); Base Excess ABG 6.8 mmol/L (-2.0-2.0); Blood Gas Allen Test Pos; Blood Gas Operator Identificat glc; Blood Gas Sample Site Radial, right; Blood Gas Sample Type Arterial; Carboxyhemoglobin 1.5 %THgb (0.4-20.1); HCO3 ABG 31.4 mmol/L (22-26); HGB O2 Sat 94.2 % (95-100); Ionized Calcium Level - ABG 1.2 mmol/L (1.1-1.4); Methemoglobin 1.1 % (0.4-1.5); Oxygen Device ROOM AIR; Oxygen Saturation ABG 96.8; PO2 ABG 82.9 mmHg (80.0-100.0); Potassium Level - ABG 3.4 mmol/L (3.5-5.0); Total Hemoglobin 11.8 g/dL (14-18)
[2021-06-28 17:53] LABS: Ketone (Acetest) Serum Negative (Negative)
[2021-06-28 18:03] LABS: Troponin 5 2HR 19.45 ng/L (0-15)
[2021-06-28 18:06] LABS: Troponin 5 2HR Delta -1.55 ABS# (0-10)
[2021-06-28] MEDS: insulin regular-human 100 units/1 mL 10 UNIT IVP (18:30)
[2021-06-28 19:19] LABS: Glucose Point of Care 388 mg/dL (70-110)
[2021-06-28 19:37] VITALS: BP 130/84; PULSE 85; RESP 15; O2SAT 93
--- NOTE | 2021-06-28 21:05 | ECG_ITS ---
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 Measurements Intervals [place] Rate: 88 P: [place]: QRS: -48 QRSD: 122 T: -21 QT: 369 QTc: 448 Interpretive Statements ATRIAL FIBRILLATION LEFT AXIS DEVIATION RIGHT BUNDLE BRANCH BLOCK POSSIBLE ANTERIOR MYOCARDIAL INFARCTION , OF INDETERMINATE AGE Compared to ECG 06/28/2021 15:56:46 Left-axis deviation now present Myocardial infarct finding now present Left anterior fascicular block no longer present Electronically Signed On 06-28-2021 20:45:07 SOFTWARE PROJECT ENGINEER by Funmilayo Brown M.D. [id number]
== END 2021-06-28 19:44 | disposition home or self-care (01) ==
PROVIDERS: Family Medicine; Emergency Provider Emergency Medicine; PCP Nurse Practitioner Family
DX: R07.9 Chest pain, unspecified (principal); R73.9 Hyperglycemia, unspecified; Z79.84 Long term (current) use of oral hypoglycemic drugs; I25.10 Atherosclerotic heart disease of native coronary artery without angina pectoris; N18.30 Chronic kidney disease, stage 3 unspecified; I50.30 Unspecified diastolic (congestive) heart failure
CPT/HCPCS: 36415; 36416; 36600; 71045; 80051; 80053; 82009; 82330; 82805; 82962; 83880; 84484; 85025; 93005; 96374; 96375; 99284; J1815; J1940

== ENCOUNTER → 2021-07-06 09:17 | Outpatient (BNVA) | payer MEDICARE, MEDICAID, SELFPAY | PROVIDERS: PCP Nurse Practitioner Family; Visit Provider Nurse Practitioner Family | DX: I50.32 Chronic diastolic (congestive) heart failure (principal); I48.19 Other persistent atrial fibrillation | CPT/HCPCS: 36415; 80048; 83880; 99214 ==

== ENCOUNTER 2021-07-06 11:05 | Outpatient (CLI) | payer MEDICARE, MEDICAID, SELFPAY ==
[2021-07-06 12:30] LABS: Anion Gap 18.1 (5-19); Blood Urea Nitrogen 24 mg/dL (8-23); Calcium 9.3 mg/dL (8.5-10.5); Carbon Dioxide 27 mmol/L (22-29); Chloride 96 mmol/L (98-107); Glucose 303 mg/dL (65-115); NT Pro B Type Natriuretic Pept 857 pg/mL (0-125); Osmolality Calculated 299 mOsm/kg (285-295); Potassium 4.1 mmol/L (3.5-5.1); Sodium 137 mmol/L (136-145)
== END 2021-07-06 11:06 | disposition home or self-care (01) ==
LOC: LAB 11:16
PROVIDERS: PCP Nurse Practitioner Family; Visit Provider Nurse Practitioner Family
DX: I50.32 Chronic diastolic (congestive) heart failure (principal)
CPT/HCPCS: 36415; 80048; 83880

== ENCOUNTER → 2021-07-08 09:53 | Outpatient (BNVA) | payer MEDICARE, MEDICAID, SELFPAY | PROVIDERS: PCP Nurse Practitioner Family; Visit Provider Internal Medicine | DX: E11.65 Type 2 diabetes mellitus with hyperglycemia (principal); E11.42 Type 2 diabetes mellitus with diabetic polyneuropathy; E11.22 Type 2 diabetes mellitus with diabetic chronic kidney disease; N18.31 Chronic kidney disease, stage 3a; E66.01 Morbid (severe) obesity due to excess calories; E04.1 Nontoxic single thyroid nodule; E78.5 Hyperlipidemia, unspecified; E55.9 Vitamin D deficiency, unspecified; Z68.44 Body mass index [BMI] 60.0-69.9, adult; Z79.899 Other long term (current) drug therapy | CPT/HCPCS: 99214 ==

== ENCOUNTER → 2021-07-18 13:26 | Outpatient (BNVA) | payer MEDICARE, MEDICAID, SELFPAY | PROVIDERS: PCP Nurse Practitioner Family; Visit Provider Nurse Practitioner Family | DX: I50.32 Chronic diastolic (congestive) heart failure (principal); N18.30 Chronic kidney disease, stage 3 unspecified | CPT/HCPCS: 99214 ==

== ENCOUNTER 2021-07-29 09:50 | Outpatient (CLI) | payer MEDICARE, MEDICAID, SELFPAY ==
[2021-07-29 10:44] LABS: Anion Gap 15.5 (5-19); Blood Urea Nitrogen 21 mg/dL (8-23); Calcium 9.8 mg/dL (8.5-10.5); Carbon Dioxide 28 mmol/L (22-29); Chloride 98 mmol/L (98-107); Glomerular Filtration Rate 50.7 mL/min (90-130); Glucose 213 mg/dL (65-115); NT Pro B Type Natriuretic Pept 669 pg/mL (0-125); Osmolality Calculated 293 mOsm/kg (285-295); Potassium 4.5 mmol/L (3.5-5.1); Sodium 137 mmol/L (136-145)
== END 2021-07-29 09:51 | disposition home or self-care (01) ==
LOC: LAB 09:53
PROVIDERS: PCP Nurse Practitioner Family; Visit Provider Nurse Practitioner Family
DX: I50.32 Chronic diastolic (congestive) heart failure (principal)
CPT/HCPCS: 36415; 80048; 83880

== ENCOUNTER 2021-09-10 09:42 | Inpatient (IN) | payer MEDICARE, MEDICAID, SELFPAY ==
[2021-09-10] VITALS (10 sets, daily range): BP systolic 123–167; BP diastolic 60–98; PULSE 66–95; RESP 17–24; TEMP 36.9; O2SAT 94–96; BMI 58.9; BMI 58.3
--- NOTE | 2021-09-10 10:13 | ECG_ITS ---
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 Measurements Intervals [place] Rate: 86 P: [place]: QRS: -47 QRSD: 110 T: 55 QT: 371 QTc: 445 Interpretive Statements ATRIAL FIBRILLATION LOW QRS VOLTAGE IN PRECORDIAL LEADS [QRS DEFLECTION < 1.0 mV IN CHEST LEADS] PATTERN CONSISTENT WITH PULMONARY DISEASE INCOMPLETE RIGHT BUNDLE BRANCH BLOCK [90+ ms QRS DURATION, TERMINAL R IN V1/V2, 40+ ms S IN I/aVL/V4/V5/V6] LEFT ANTERIOR FASCICULAR BLOCK [QRS AXIS <= -45, QR IN I, RS IN II] POSSIBLE SEPTAL MYOCARDIAL INFARCTION , OF INDETERMINATE AGE [30 ms Q WAVE IN V1/V2].INTERPRETATION BASED ON A DEFAULT AGE OF 40 YEARS Compared to ECG 06/28/2021 18:11:02 Low QRS voltage now presentIncomplete right bundle-branch block now present Left anterior fascicular block now presentLeft-axis deviation no longer present Right bundle-branch block no longer present Myocardial infarct finding still present Electronically Signed On 09-10-2021 21:59:15 CDT by Robb Banegas M.D. [id number]
--- NOTE | 2021-09-10 10:13 | XRR_ITS ---
PROCEDURE INFORMATION: Exam: XR Chest Exam date and time: 09/10/2021 10:28 AM Age: 66 years old Clinical indication: Dyspnea TECHNIQUE: Imaging protocol: XR of the chest. Views: 1 view. COMPARISON: CR XR chest 1V portable [id number] 06/28/2021 3:14 PM FINDINGS: Lungs: Unremarkable. No consolidation. Pleural spaces: Unremarkable. No pleural effusion. No pneumothorax. Heart/Mediastinum: Unremarkable. No cardiomegaly. Bones/joints: Unremarkable. XR/XR chest 1V portable [id number] IMPRESSION: No acute findings.
[2021-09-10] MEDS: FUROsemide 10 mg/mL SDV 4mL 60 MG IVP (10:33)
[2021-09-10 10:42] LABS: Troponin(5th) Baseline 16 ng/L (0-15)
[2021-09-10 10:49] LABS: NT Pro B Type Natriuretic Pept 930 pg/mL (0-125)
[2021-09-10 11:42] LABS: Basophils # 0.1 10^3/uL (0.0-0.1); Basophils % 0.6 %; Eosinophils # 0.1 10^3/uL (0.0-0.8); Eosinophils % 0.7 %; Hematocrit 37.1 % (42.0-52.0); Hemoglobin 11.5 g/dL (11.7-16.6); Lymphocytes # 1.5 10^3/uL (0.8-4.8); Lymphocytes % 16.2 %; Mean Corpuscular Hemoglobin 25.8 pg (28.0-34.0); Mean Corpuscular Volume 83.4 fl (80-94); Mean Platelet Volume 10.5 fL (7.4-10.4); Monocytes # 0.8 10^3/uL (0.2-0.9); Monocytes % 8.5 %; Neutrophils # 6.88 10^3/uL (1.8-7.7); Neutrophils % 73.4 %; Nucleated Red Blood Cells % 0 %; Platelet Count 239 10^3/cmm (130-400); Red Blood Count 4.45 10^6/uL (4.1-5.3); Red Cell Distribution Width 14.8 % (12.1-15.1); White Blood Count 9.4 10^3/uL (4.0-10.0)
[2021-09-10 11:53] LABS: Alanine Aminotransferase 20 U/L (0-41); Alkaline Phosphatase 63 IU/L (40-130); Anion Gap 18.2 (5-19); Aspartate Amino Transferase 19 U/L (0-40); Blood Urea Nitrogen 22 mg/dL (8-23); Calcium 9.7 mg/dL (8.5-10.5); Carbon Dioxide 26 mmol/L (22-29); Chloride 95 mmol/L (98-107); Globulin 2.6 g/dL (1.3-4.6); Glomerular Filtration Rate 50.7 mL/min (90-130); Glucose 223 mg/dL (65-115); Osmolality Calculated 290 mOsm/kg (285-295); Potassium 4.2 mmol/L (3.5-5.1); Sodium 135 mmol/L (136-145); Total Bilirubin 0.2 mg/dL (0.15-1.2); Total Protein 6.6 g/dL (6.6-8.7)
--- NOTE | 2021-09-10 12:09 | ED_ITS ---
HPI - Chest Pain General: Chief Complaint: Chest Pain Stated Complaint: Chest pain, SOB, N/V Time Seen by Provider: 09/10/21 09:51 Source: patient Mode of arrival: ambulatory Limitations: no limitations History of Present Illness: 66-year-old male presents emergency room complaining of chest pressure and shortness of breath. He has had mild chest discomfort with pain radiating into the left arm intermittently for a week associated with shortness of breath. Worsening last night. He recently was ch anged from Lasix to a different diuretic. He has noticed increasing orthopnea and increasing swelling in his legs. June 2019 patient had a coronary angiogram by Dr. Cloud in our facility. At that time the indication for the cath was mild coronary artery disease he had one-vessel disease with 20% stenosis in his mid to proximal LAD no intervention was undertaken. He was having worsening heart failure and shortness of breath at that time. They elected to maximize medical therapy. MD complaint: chest pain Pertinent past history: coronary artery disease Onset (ago): day(s) Timing of current episode: episodic Onset: during rest Pain location: left chest Pain radiation: left arm, left shoulder and left scapula Severity: moderate Quality: aching and heaviness Relieving factors: nothing Exacerbating factors: nothing Associated symptoms: Reports dyspnea and nausea; Deny abdominal pain, diaphoresis, fever(s), leg edema, palpitations, sense of impending doom, syncope or vomiting Treatment prior to arrival: none Review of Systems Const: Denies: fever(s), chills, body aches or diaphoresis ENMT: Denies: throat pain, ear or mastoid pain, nasal discharge or nasal congestion Card: Reports: chest pain, edema, swelling of feet/ankles, dyspnea on exertion and orthopnea; Denies: palpitations or syncope Resp: Reports: dyspnea; Denies: productive cough or non-productive cough GI: Reports: nausea; Denies: abdominal pain or vomiting : Denies: flank pain, difficulty urinating, dysuria, urinary frequency or urinary urgency Skin/Breast: Denies: rash or pruritus PFS ED PFSH: Medical History Anemia Atrial fibrillation on anticoagulation Carpal tunnel syndrome Chest pain Patient underwent coronary angiogram which was normal CKD (chronic kidney disease) stage 3, GFR 30-59 ml/min Diastolic heart failure GERD (gastroesophageal reflux disease) Gout High risk medication use High risk medication use Neuropathy Osteoarthritis Otalgia Renal insufficiency Improved after IV fluid Rheumatoid arthritis In remission Seronegative rheumatoid arthritis in remission Surgical History History of colonoscopy History of esophagogastroduodenoscopy (EGD) S/P appendectomy S/P carpal tunnel release 2x left S/P cervical disc replacement S/P hernia repair S/P skin cancer resection S/P thyroid surgery S/P tonsillectomy S/P trigger finger release Family History Father Cancer Prostate Hypertension Hypercholesterolemia Heart disease Mother Hypertension Hypercholesterolemia Anesthesia complication Daughter Anesthesia complication Denies family history of Bleeding disorder Social History Smoking and tobacco status: never smoked Alcohol intake: former Lives independently: Yes Household members: spouse Marital status: Current occupational status: disabled History of recent travel: No Alexandra/Anabaptism: Shinto Special alexandra needs: Yes Agree to transfusion: No Physical Exam Const: GENERAL APPEARANCE: cooperative and comfortable ORIENTATION /CONSCIOUSNESS: Yes awake, Yes oriented to person, Yes oriented to place and Yes oriented to time HENMT: COMMON NORMALS: normocephalic, atraumatic and hearing grossly normal bilaterally HEAD & SCALP: normocephalic and atraumatic Resp: COMMON NORMALS: normal respiratory effort, No retractions and No use of accessory muscles AUSCULTATION: crackles Laterality: bilateral (Bases) Cardio: COMMON NORMALS: regular rate and No murmurs present (Cardio) RATE: regular rate RHYTHM: abnormal rhythm irregularly irregular GI: COMMON NORMALS: Soft to palpation and No hepatosplenomegaly present AUSCULTATION: Yes normoactive bowel sounds PALPATION: Yes Soft to palpation, No Tenderness to palpation present (GI), No Guarding due to palpation present (GI) and Yes No hepatosplenomegaly present Extremity: COMMON NORMALS: normal to inspection, capillary refill normal, no clubbing, cyanosis or edema, no calf tenderness and no pedal edema Neuro: SENSORIUM/ORIENTATION: Yes oriented to person, Yes oriented to place and Yes oriented to time Skin: COMMON NORMALS: no rashes or lesions noted GENERAL SKIN EXAM: no rashes or lesions noted Course Vital Signs: Vital signs: Vital Signs Pulse Rate 76 09/10/21 14:46 Respiratory Rate 22 H 09/10/21 14:46 Blood Pressure 142/60 09/10/21 14:46 Pulse Oximetry 95 09/10/21 14:46 MDM - Chest Pain Medical Decision Making Patient moderate heart failure. He does have A. fib but his rate is well controlled. There are some mediastinal lymph nodes but they are only 12 mm and nonspecific. His ascending thoracic aorta is slightly larger but there is no evidence of dissection or rupture. Discussed with hospitalist, opts for completing rule out and management of congestive heart failure. Medical Records I reviewed the patient's medical records. Lab Data I reviewed the patient's lab results. : 09/10/21 10:00 09/10/21 10:00 Radiology Impressions Chest X-Ray 09/10/21 10:13 IMPRESSION: No acute findings. Chest CTA 09/10/21 13:26 IMPRESSION: 1. Negative for pulmonary embolus, aorta is intact. 2. Ascending thoracic aorta is prominent measuring 4.8 cm, negative for dissection or rupture. 3. Several prominent mediastinal lymph nodes measuring 12 mm, nonspecific. 4. Coronary artery atherosclerotic calcifications. 5. Mild cardiomegaly. 6. Minimal dependent atelectasis. 7. Hepatic steatosis suspected. Laboratory Results WBC 9.4 10^3/uL (4.0-10.0) 09/10/21 10:00 RBC 4.45 10^6/uL (4.1-5.3) 09/10/21 10:00 Hgb 11.5 g/dL (11.7-16.6) L 09/10/21 10:00 Hct 37.1 % (42.0-52.0) L 09/10/21 10:00 MCV 83.4 fl (80-94) 09/10/21 10:00 MCH 25.8 pg (28.0-34.0) L 09/10/21 10:00 MCHC 31.0 g/dL (30.0-36.0) 09/10/21 10:00 RDW 14.8 % (12.1-15.1) 09/10/21 10:00 Plt Count 239 10^3/cmm (130-400) 09/10/21 10:00 MPV 10.5 fL (7.4-10.4) H 09/10/21 10:00 Neut % (Auto) 73.4 % 09/10/21 10:00 Lymph % (Auto) 16.2 % 09/10/21 10:00 [place]verse % (Auto) 8.5 % 09/10/21 10:00 Eos % (Auto) 0.7 % 09/10/21 10:00 Baso % (Auto) 0.6 % 09/10/21 10:00 Neut # (Auto) 6.88 10^3/uL (1.8-7.7) 09/10/21 10:00 Lymph # (Auto) 1.5 10^3/uL (0.8-4.8) 09/10/21 10:00 [place]verse # (Auto) 0.8 10^3/uL (0.2-0.9) 09/10/21 10:00 Eos # (Auto) 0.1 10^3/uL (0.0-0.8) 09/10/21 10:00 Baso # (Auto) 0.1 10^3/uL (0.0-0.1) 09/10/21 10:00 Nucleated RBC % (auto) 0 % 09/10/21 10:00 Nucleated RBCs # 0.0 /100WBC 09/10/21 10:00 Sodium 135 mmol/L (136-145) L 09/10/21 10:00 Potassium 4.2 mmol/L (3.5-5.1) 09/10/21 10:00 Chloride 95 mmol/L (98-107) L 09/10/21 10:00 Carbon Dioxide 26 mmol/L (22-29) 09/10/21 10:00 Anion Gap 18.2 (5-19) 09/10/21 10:00 BUN 22 mg/dL (8-23) 09/10/21 10:00 Creatinine 1.4 mg/dL (0.7-1.2) H 09/10/21 10:00 GFR Calculation 50.7 mL/min (90-130) L 09/10/21 10:00 Glucose 223 mg/dL (65-115) H 09/10/21 10:00 Calculated Osmolality 290 mOsm/kg (285-295) 09/10/21 10:00 Calcium 9.7 mg/dL (8.5-10.5) 09/10/21 10:00 Total Bilirubin 0.2 mg/dL (0.15-1.2) 09/10/21 10:00 AST 19 U/L (0-40) 09/10/21 10:00 ALT 20 U/L (0-41) 09/10/21 10:00 Alkaline Phosphatase 63 IU/L (40-130) 09/10/21 10:00 Troponin T Baseline 16 ng/L (0-15) H 09/10/21 10:00 Troponin T 120 Minute 14.14 ng/L (0-15) 09/10/21 12:05 Delta Troponin T -1.86 ABS# (0-10) L 09/10/21 12:05 NT-Pro-B Natriuret Pep 930 pg/mL (0-125) H 09/10/21 10:00 Total Protein 6.6 g/dL (6.6-8.7) 09/10/21 10:00 Albumin 4.0 g/dL (3.5-5.2) 09/10/21 10:00 Globulin 2.6 g/dL (1.3-4.6) 09/10/21 10:00 Discharge Plan Discharge Patient Disposition: Admitted As Inpatient Admit Provider: Reagan Talbot Clinical Impression: Congestive heart failure, Atrial fibrillation, CKD (chronic kidney disease) stage 3, GFR 30-59 ml/min Condition: Stable Coding Level of Care Code ED Software Applications Architect for Chg Fwd Exam Comprehensive
--- NOTE | 2021-09-10 12:13 | ECG_ITS ---
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 Measurements Intervals [place] Rate: 65 P: [place]: QRS: -45 QRSD: 113 T: 35 QT: 421 QTc: 439 Interpretive Statements ATRIAL FIBRILLATION LEFT AXIS DEVIATION [QRS AXIS < -30] INCOMPLETE RIGHT BUNDLE BRANCH BLOCK [90+ ms QRS DURATION, TERMINAL R IN V1/V2, 40+ ms S IN I/aVL/V4/V5/V6] SEPTAL MYOCARDIAL INFARCTION , OF INDETERMINATE AGE [40+ ms Q WAVE IN V1/V2] Compared to ECG 09/10/2021 09:55:01 Left-axis deviation now present Left anterior fascicular block no longer present Myocardial infarct finding still present Electronically Signed On 09-10-2021 22:02:59 CDT by Robb Banegas M.D. [id number]
[2021-09-10 12:37] LABS: Troponin 5 2HR 14.14 ng/L (0-15)
--- NOTE | 2021-09-10 13:26 | CTR_ITS ---
PROCEDURE INFORMATION: Exam: CTA Chest With Contrast Exam date and time: 09/10/2021 2:35 PM Age: 66 years old Clinical indication: Pain; Patient HX: Cp radiating to back; Additional info: Chest pain , radiating into the back TECHNIQUE: Imaging protocol: Computed tomographic angiography of the chest with contrast. 3D rendering (Not supervised by radiologist): MIP and/or 3D reconstructed images were created by the technologist. Radiation optimization: All CT scans at this facility use at least one of these dose optimization techniques: automated exposure control; mA and/or kV adjustment per patient size (includes targeted exams where dose is matched to clinical indication); or iterative reconstruction. Contrast material: VISI 320; Contrast volume: 67 ml; Contrast route: INTRAVENOUS (IV); COMPARISON: CR (CHEST, ) 09/10/2021 10:28 AM RADIATION DOSE METRICS: Total DLP (mGy-cm): 850.68 FINDINGS: Pulmonary arteries: Normal. No pulmonary emboli. Aorta: Ascending thoracic aorta is prominent measuring 4.8 cm, negative for dissection or rupture. Lungs: Minimal dependent atelectasis. Pleural spaces: Unremarkable. No pneumothorax. No pleural effusion. Heart: Coronary artery atherosclerotic calcifications. Mild cardiomegaly. Lymph nodes: Several prominent mediastinal lymph nodes measuring 12 mm, nonspecific. Liver: Hepatic steatosis suspected. Bones/joints: Unremarkable. No acute fracture. Soft tissues: Unremarkable. CT/CT angio chest [id number] IMPRESSION: 1. Negative for pulmonary embolus, aorta is intact. 2. Ascending thoracic aorta is prominent measuring 4.8 cm, negative for dissection or rupture. 3. Several prominent mediastinal lymph nodes measuring 12 mm, nonspecific. 4. Coronary artery atherosclerotic calcifications. 5. Mild cardiomegaly. 6. Minimal dependent atelectasis. 7. Hepatic steatosis suspected.
[2021-09-10 14:15] LABS: Troponin 5 2HR Delta -1.86 ABS# (0-10)
[2021-09-10] MEDS: iodixanol 320 mg/mL 100mL Btl IV (14:49)
[2021-09-10] MEDS: nitroglycerin 1 gm/inch oint Pkt 1 INCH TOPICAL (15:54)
--- NOTE | 2021-09-10 16:13 | ECG_ITS ---
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 Measurements Intervals [place] Rate: 63 P: 25 UT: 170 QRS: 10 QRSD: 110 T: 60 QT: 346 QTc: 354 Interpretive Statements SINUS RHYTHM INCOMPLETE RIGHT BUNDLE BRANCH BLOCK [90+ ms QRS DURATION, TERMINAL R IN V1/V2, 40+ ms S IN I/aVL/V4/V5/V6] NONSPECIFIC ST & T-WAVE ABNORMALITY Compared to ECG 09/10/2021 12:19:56 T-wave abnormality now present Atrial fibrillation no longer present Left-axis deviation no longer present Myocardial infarct finding no longer present Electronically Signed On 09-10-2021 22:03:06 CDT by Robb Banegas M.D. [id number]
--- NOTE | 2021-09-10 16:38 | CTR_ITS ---
PROCEDURE INFORMATION: Exam: CT Abdomen And Pelvis Without Contrast Exam date and time: 09/10/2021 5:57 PM Age: 66 years old Clinical indication: Abdominal pain; Prior surgery; Surgery date: 6+ months; Surgery type: Appy, hernia; Patient HX: C/O epigastric/ruq pain; Additional info: Upper quadrant pain TECHNIQUE: Imaging protocol: Computed tomography of the abdomen and pelvis without contrast. Radiation optimization: All CT scans at this facility use at least one of these dose optimization techniques: automated exposure control; mA and/or kV adjustment per patient size (includes targeted exams where dose is matched to clinical indication); or iterative reconstruction. COMPARISON: CT abdomen con [id number] 03/27/2021 11:51 AM RADIATION DOSE METRICS: Total DLP (mGy-cm): 7.56 FINDINGS: Liver: Hepatic steatosis. Gallbladder and bile ducts: Normal. No calcified stones. No ductal dilation. Pancreas: Normal. No ductal dilation. Spleen: Normal. No splenomegaly. Adrenal glands: Normal. No mass. Kidneys and ureters: Contrast in the renal collecting systems and urinary bladder from prior contrast infused exam. Stomach and bowel: Unremarkable. No obstruction. No mucosal thickening. Appendix: No evidence of appendicitis. Intraperitoneal space: Unremarkable. No free air. No significant fluid collection. Vasculature: Unremarkable. No abdominal aortic aneurysm. Lymph nodes: Unremarkable. No enlarged lymph nodes. Urinary bladder: See Kidneys and ureters finding. Reproductive: Unremarkable as visualized. Bones/joints: Unremarkable. No acute fracture. Soft tissues: Supraumbilical ventral abdominal hernia containing bowel and omentum without bowel dilation or inflammation. CT/CT abdomen pelvis [place] [id number] IMPRESSION: 1. Negative for acute inflammatory process in the abdomen or pelvis. 2. Hepatic steatosis. 3. Contrast in the renal collecting systems and urinary bladder from prior contrast infused exam. 4. Supraumbilical ventral abdominal hernia containing bowel and omentum without bowel dilation or inflammation.
--- NOTE | 2021-09-10 16:40 | PM.HP ---
Providers/Chief Complaint Admitting Physician: Reagan Talbot MD Primary Care Provider: Lilian Mcintyre Chief Complaint: Chest pain, SOB, N/V History of Present Illness Mauro Solis is a 66 year old male with past medical history of atrial fibrillation on Xarelto, morbid obesity, diastolic heart failure, CKD with baseline creatinine of around 1.7, CAD with last angiogram done in 2019 showing nonobstructive CAD with LAD of 20% lesion, hypertensive, rheumatoid arthritis, substernal thyroid goiter presented to the ER today complaining of retrosternal chest heaviness and pain along with epigastric pain radiating to back from the right upper quadrant bandlike pain getting aggravated on minimal ambulation and when taking a deep breath along with shortness of breath. Patient states he is always short of breath but this is more than usual. Denies any vomiting but does complain of nausea. States he has been having swelling in his legs which has been getting worse. Only change in medication is that he was put on Bumex 18. Lasix with her increased by nurse practitioner for cardiology few weeks ago. Has been vaccinated for COVID and flu. Review of Systems General: Reports: 10 or more systems reviewed and unremarkable except in HPI and below Const: Denies: fever(s), chills, body aches, change in appetite, change in weight, malaise, night sweats, diaphoresis, change in sleep pattern, daytime sleepiness or snoring Eyes: Denies: change in vision, blurry vision, photophobia, eye discomfort or eye discharge ENMT: Denies: throat pain, enlarged tonsils, hoarseness, mouth pain, oral sores, dry mouth, tinnitus, nasal congestion or post nasal drip Card: Denies: chest pain, palpitations, irregular heart rhythm, edema, swelling of feet/ankles, lightheadedness, syncope, pre-syncope, dyspnea on exertion, orthopnea, leg pain with exertion or acrocyanosis Resp: Denies: dyspnea, productive cough, non-productive cough, wheezing, stridor, pain on inspiration, change in phlegm color, hemoptysis or chest congestion GI: Denies: abdominal pain, nausea, vomiting, hematemesis, coffee ground emesis, dysphagia, heartburn, diarrhea, constipation, bloating, GI cramping, change in bowel habits, pain on defecation, hematochezia or melena : Denies: flank pain, difficulty urinating, dysuria, urinary frequency, urinary urgency, urinary hesitancy, urinary dribbling, difficulty starting urination, change in urine stream, nocturia or hematuria Musc: Denies: neck pain, back pain, extremity pain, joint pain, joint swelling, joint redness, joint stiffness or limited range of motion Neuro: Denies: headache(s), numbness in extremities, weakness in extremities, sensory changes, lack of coordination, difficulty walking, frequent falls, dizziness, vertigo, confusion, Slurred speech present, difficulty communicating thoughts or seizure-like activity Psych: Denies: anxiety, depression, mood swings, panic attacks, hopelessness or irritability Endo: Denies: polyuria, polydipsia, tired all the time, cold intolerance, excessive sweating, flushing or heat intolerance Noah/Lymph: Denies: easy bruising or easy bleeding All/Imm: Denies: tongue swelling, facial swelling or acute wheezing Medications/Allergies Home Medications Medication Instructions Recorded Confirmed Last Taken Type acyclovir 5 % topical ointment See Rx Instructions .ROUTE 05/22/19 09/10/21 Unknown History .COMPLEX gm ergocalciferol (vitamin D2) 1,250 50,000 unit PO Q30D cap 05/22/19 09/10/21 06/07/21 History mcg (50,000 unit) capsule fenofibrate nanocrystallized 145 145 mg PO DAILY tab 05/22/19 09/10/21 09/09/21 History mg tablet diclofenac sodium 1 % topical gel See Rx Instructions .ROUTE 06/19/19 09/10/21 Unknown History .COMPLEX PRN blood-glucose meter (Accu-Chek #1 each 01/21/20 09/10/21 Unknown Rx Guide Glucose Meter) Diabetic shoes with inserts #1 ea 02/04/20 09/10/21 Unknown Rx lancets (Accu-Chek Fastclix Lancet #200 each 03/04/20 09/10/21 Unknown Rx Drum) colloidal oatmeal 2 % topical 1 applic TOPICAL .prn PRN g 06/03/20 09/10/21 Unknown History cream (Gold Orantes Ultimate Eczema Relief) ketoconazole 2 % topical cream See Rx Instructions .ROUTE 07/13/20 09/10/21 04/06/21 Rx .COMPLEX #60 g Diabetic shoes with 3 pairs of #1 ea 09/14/20 09/10/21 Unknown Rx inserts Diabetic shoes with molded inserts #1 ea 09/14/20 09/10/21 Unknown Rx prednisone 10 mg tablet See Rx Instructions PO .COMPLEX 09/20/20 09/10/21 Unknown Rx PRN #30 tab nitroglycerin 0.4 mg sublingual 0.4 mg SUBLINGUAL DIRECTED 30 12/21/20 09/10/21 02/15/21 Rx tablet (Nitrostat) Days #25 tab blood sugar diagnostic (Accu-Chek #300 ea 03/09/21 09/10/21 Unknown Rx Guide test strips) pen needle, diabetic 31 gauge x #100 ea 03/18/21 09/10/21 Unknown Rx / ezetimibe 10 mg tablet 10 mg PO DAILY #90 tab 03/28/21 09/10/21 09/09/21 Rx pen needle, diabetic 32 gauge x #100 ea 03/28/21 09/10/21 Unknown Rx (BD Gabriella 2nd Gen Pen Needle) triamcinolone acetonide 0.1 % 1 applic TOPICAL BID PRN 04/11/21 09/10/21 Unknown History topical cream acetaminophen 500 mg tablet 1,000 mg PO Q6H PRN tab 04/21/21 09/10/21 Unknown History (Tylenol Extra Strength) isosorbide mononitrate 30 mg 30 mg PO BID #180 tab 04/21/21 09/10/21 09/10/21 Rx tablet,extended release 24 hr rivaroxaban 20 mg tablet 20 mg PO DAILY #90 tab 04/21/21 09/10/21 09/10/21 Rx pantoprazole 40 mg tablet,delayed 40 mg PO BID #180 tab 04/27/21 09/10/21 09/10/21 Rx release verapamil 240 mg tablet,extended 240 mg PO DAILY #90 tab 06/20/21 09/10/21 09/10/21 Rx release allopurinol 100 mg tablet 200 mg PO BEDTIME 06/28/21 09/10/21 09/09/21 History potassium chloride 20 mEq 20 meq PO DAILY 06/28/21 09/10/21 09/10/21 History tablet,extended release mupirocin 2 % topical ointment 1 applic TOPICAL BID 07/06/21 09/10/21 09/10/21 History ropinirole 0.25 mg tablet 0.25 mg PO BEDTIME 07/06/21 09/10/21 09/09/21 History dulaglutide 0.75 mg/0.5 mL 3 mg SUBCUT Q7D ml 07/08/21 09/10/21 09/09/21 History subcutaneous pen injector (Trulicity) bumetanide 2 mg tablet See Rx Instructions PO DAILY #90 07/18/21 09/10/21 09/09/21 Rx tab spironolactone 25 mg tablet 12.5 mg PO DAILY #45 tab 07/18/21 09/10/21 09/09/21 Rx glimepiride 4 mg tablet 8 mg PO DAILY #180 tab 09/02/21 09/10/21 09/09/21 Rx metoprolol tartrate 50 mg tablet 75 mg PO BID 09/10/21 09/10/21 09/10/21 History Allergies Allergy/AdvReac Type Severity Reaction Status Date / Time empagliflozin Allergy Severe difficult Verified 07/18/21 13:19 [From Jardiance] breathing linaclotide [From Linzess] Allergy Unknown Hypertension; Verified 07/18/21 13:19 Afib metformin Allergy Unknown ADR-Diarrhe Verified 07/18/21 13:19 a naproxen Allergy Unknown Affects Verified 07/18/21 13:19 kidney fuctions Ahtrtqk-WNX-VeM Reductase Allergy Unknown Severe Verified 07/18/21 13:19 Inhibitor Muscle Pain [Tigmrlc-Jat-Heb Reductase Inhibitor] Sulfa (Sulfonamide Allergy Unknown ADR-Itching Verified 07/18/21 13:19 Antibiotics) baclofen Allergy Affects Verified 07/18/21 13:19 kidney fuctions NSAIDS (Non-Steroidal Allergy Affects Verified 07/18/21 13:19 Anti-Inflamma Kidney functions tramadol AdvReac Intermediate aggression Verified 07/18/21 13:19 PFSH Acute PFSH: Medical History (Updated 09/10/21 @ 16:45 by Reagan Talbot MD) Anemia Atrial fibrillation on anticoagulation Carpal tunnel syndrome Chest pain Patient underwent coronary angiogram which was normal CKD (chronic kidney disease) stage 3, GFR 30-59 ml/min Congestive heart failure Diastolic heart failure Diverticulosis GERD (gastroesophageal reflux disease) Gout Hyperlipidemia Morbid obesity with BMI of 60.0-69.9, adult Neuropathy LINDA on CPAP Osteoarthritis Otalgia Rectal bleeding Rectal polyp Renal insufficiency Improved after IV fluid Rheumatoid arthritis In remission 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 Ventral incisional hernia Vitamin D deficiency Surgical History History of colonoscopy History of esophagogastroduodenoscopy (EGD) S/P appendectomy S/P carpal tunnel release 2x left S/P cervical disc replacement S/P hernia repair S/P skin cancer resection S/P thyroid surgery S/P tonsillectomy S/P trigger finger release Family History Father Cancer Prostate Hypertension Hypercholesterolemia Heart disease Mother Hypertension Hypercholesterolemia Anesthesia complication Daughter Anesthesia complication Denies family history of Bleeding disorder Social History Smoking and tobacco status: never smoked Alcohol intake: former Lives independently: Yes Household members: spouse Marital status: Current occupational status: disabled History of recent travel: No Alexandra/Moravian: Zoroastrian Special alexandra needs: Yes Agree to transfusion: No Vitals/I&O/Wt Last Vital Signs Pulse 76 09/10/21 14:46 Resp 22 H 09/10/21 14:46 BP 142/60 09/10/21 14:46 Pulse Ox 95 09/10/21 14:46 Weight last 48 hrs Weight 186.426 kg Physical Exam Narrative: General: No acute distress, AO x3, pleasant, morbidly obese HEENT: PERRLA, pupils bilaterally equal and reactive Chest: Bilateral equal good air entry, distant breath sounds, occasional rhonchi CVS: S1-S2 irregularly irregular, distant heart sounds, no tachycardia, no gallops, no rubs Abdomen: Soft, nontender, no organomegaly, bowel sounds present Neuro: No focal deficits, no facial deformity, AO x3, power 5/5 in all limbs Data : 09/10/21 10:00 09/10/21 10:00 A&P Assessment and plan (1) Chest pain: Status: Acute Qualifiers: Chest pain type: unspecified Qualified Code(s): R07.9 - Chest pain, unspecified (2) Dyspnea: Status: Acute (3) Diastolic heart failure: Status: Acute Qualifiers: Heart failure chronicity: chronic Qualified Code(s): I50.32 - Chronic diastolic (congestive) heart failure (4) Atrial fibrillation: Status: Acute (5) LINDA on CPAP: Status: Acute (6) Morbid obesity with BMI of 60.0-69.9, adult: Status: Acute (7) Uncontrolled type 2 diabetes mellitus: Status: Acute Qualifiers: Glycemic state: with hyperglycemia Qualified Code(s): E11.65 - Type 2 diabetes mellitus with hyperglycemia Plan 66-year-old gentleman with past medical history of A. fib, diastolic heart failure, recent normal angiogram in last 2 years presents to the ER with chest pain radiating to epigastric and back along the right upper quadrant of abdomen along with shortness of breath. 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 Cycle troponins. Patient does have history of morbid obesity, ventral hernia. Cannot rule out pancreatitis. Check lipase, CT abdomen pelvis. Continue home dose of Protonix 40 mg twice daily. Start on Carafate, Zofran as needed. Check lipid panel, A1c. Continue with fenofibrate, ezetimibe, baby aspirin, Imdur. Dyspnea: Does have history of diastolic heart failure. Check echocardiogram. IV Lasix 80 mg twice daily. Continue with home dose of spironolactone. CT chest results appreciated. proBNP mildly elevated. Cannot rule out inflammatory pneumonitis. Check flu swab and COVID-19 PCR though unlikely. Does have history of obstructive sleep apnea. CPAP at home settings overnight. DuoNeb every 6 hour, budesonide twice daily. Uncontrolled type 2 diabetes mellitus: Check A1c. Insulin sliding scale. Hold OHA's. Hypertension: Goal blood pressure less than 140/90 Am[place]. Continue with home dose of Imdur, metoprolol, verapamil. Atrial fibrillation: Rate controlled. Continue with home dose of verapamil, metoprolol. Continue with home dose of Xarelto. Lower limb swelling: Check Dopplers to rule out DVT. Full code. Cardiac carb consistent diet. Fluid restriction up to 2 L. Xarelto will suffice for DVT prophylaxis. Attestations Medical Necessity Statement*: Admission for more than 2 midnights for management of diastolic heart failure, chest pain evaluation Time Spent in Patient Care: Greater than 35 minutes Coding Level of Care Code Acute Escape Wheel Tooth Cutter for Chg Fwd Diagnoses Diastolic heart failure I50.32 Heart failure chronicity: chronic Atrial fibrillation I48.91 Chest pain R07.9 Chest pain type: unspecified LINDA on CPAP G47.33; Z99.89 Dyspnea R06.00 Morbid obesity with BMI of 60.0-69.9, adult E66.01; Z68.44 Uncontrolled type 2 diabetes mellitus E11.65 Glycemic state: with hyperglycemia
--- NOTE | 2021-09-10 16:51 | USR_ITS ---
PROCEDURE INFORMATION: Exam: US Duplex Lower Extremity Veins, Bilateral Exam date and time: 09/10/2021 6:24 PM Age: 66 years old Clinical indication: Swelling (edema) of limb; Lower extremity, bilateral; Additional info: R/O dvt TECHNIQUE: Imaging protocol: Real-time Duplex ultrasound of the bilateral extremities with 2-D steven scale, color Doppler flow and spectral waveform analysis with image documentation. Complete exam focused on the bilateral lower extremity veins. COMPARISON: CT abdomen pelvis wo con [id number] 09/10/2021 5:57 PM FINDINGS: Right deep veins: Unremarkable. The common femoral, femoral, proximal profunda femoral and popliteal veins are patent without thrombus. Normal Doppler waveforms. Normal compressibility and/or augmentation response. Right superficial veins: Saphenofemoral junction is patent without thrombus. Left deep veins: Unremarkable. The common femoral, femoral, proximal profunda femoral and popliteal veins are patent without thrombus. Normal Doppler waveforms. Normal compressibility and/or augmentation response. Left superficial veins: Saphenofemoral junction is patent without thrombus. Soft tissues: Unremarkable. US/CV venous duplex [facility] [id number] IMPRESSION: No evidence of deep vein thrombosis.
[2021-09-10 16:55] LABS: Iron 46 ug/dL (59-158); Percent Saturation 10.4 % (20-50); Total Iron Binding Capacity 442 mcg/dl; Unsaturated Iron Binding 396 ug/dL (112-347)
[2021-09-10 17:01] LABS: Procalcitonin 0.12 ng/mL (0-0.5)
[2021-09-10 17:14] LABS: Troponin 5 6HR 14.78 ng/L (0-15)
[2021-09-10 17:21] LABS: Lipase 64 U/L (13-60); Thyroid Stimulating Hormone 2.18 uIU/mL (0.27-4.20)
[2021-09-10 17:40] LABS: Troponin 5 6HR Delta -1.22 ng/L (0-12)
[2021-09-10 18:01] LABS: Add Urine Microscopic? NO; Charge for UA Resulting for Rev
[2021-09-10] MEDS: isosorbide mononitrate ER 30 mg Tablet PO (18:08)
[2021-09-10] MEDS: metoprolol tartrate 50 mg Tablet 75 MG PO (18:09)
[2021-09-10] MEDS: pantoprazole DR 40 mg Tablet PO (18:09)
[2021-09-10 18:11] LABS: Bilirubin Urine Neg (Negative); Blood Urine Neg (Negative); Glucose Urine UA Norm (Normal); Ketones Urine Negative (Negative); Leukocyte Esterase Urine Negative (Negative); Nitrate Urine Negative (Negative); Protein Urine Neg (Negative); Urine Appearance Clear (CLEAR); Urine Color Yellow (Yellow); Urobilinogen Urine Norm (Negative); pH Urine 5 (5-7)
[2021-09-10] MEDS: ferrous gluconate 324 mg Tablet PO (18:18)
[2021-09-10 18:31] LABS: Potassium, Radom Urine 49 mmol/L; Urine Random Chloride 89 mmol/L; Urine Random Sodium 65 mmol/L
--- NOTE | 2021-09-10 18:40 | PC.NURSE ---
Addendum entered by Pamella Egan RN 09/10/21 18:44: pt in afib ..not sr. Original Note: received into room 105 at 1650 from er.report received.pt is alert and oriented x 4.denies pain or sob at present.sr on monitor.oriented to room environment.instructed to notify staff for any cp,sob,or for any conerns at all.pt verb understanding of instructions.
[2021-09-10 19:47] LABS: Adenovirus Not Detected (NOT DETECT); Chlamydia Pneumoniae Not Detected (NOT DETECT); Coronavirus 229E,HKU1,NL63,OC4 Not Detected (NOT DETECT); Human Metapneumovirus Not Detected (NOT DETECT); Human Rhinovirus/Enterovirus Not Detected (NOT DETECT); Influenza A Not Detected (NOT DETECT); Influenza A H1 Not Detected (NOT DETECT); Influenza A H1-2009 Not Detected (NOT DETECT); Influenza A H3 Not Detected (NOT DETECT); Influenza B Not Detected (NOT DETECT); Mycoplasma Pneumoniae Not Detected (NOT DETECT); Parainfluenza Virus Type 1 Not Detected (NOT DETECT); Parainfluenza Virus Type 2 Not Detected (NOT DETECT); Parainfluenza Virus Type 3 Not Detected (NOT DETECT); Parainfluenza Virus Type 4 Not Detected (NOT DETECT); Respiratory Syncytial Virus A Not Detected (NOT DETECT); Respiratory Syncytial Virus B Not Detected (NOT DETECT); SARS-COV-2 Not Detected (NOT DETECT)
[2021-09-10 20:57] LABS: Results from Genmark
[2021-09-10] MEDS: allopurinol 100 mg Tablet 200 MG PO (21:09)
[2021-09-10] MEDS: benzonatate 100 mg Capsule PO (21:09)
[2021-09-10] MEDS: ropinirole 0.25 mg Tablet PO (21:09)
[2021-09-10] MEDS: acetaminophen 325 mg Tablet 650 MG PO (23:07)
[2021-09-11] VITALS (17 sets, daily range): BP systolic 127–205; BP diastolic 80–123; PULSE 82–106; RESP 16–29; TEMP 36.1–37.2; O2SAT 92–97
--- NOTE | 2021-09-11 03:13 | USCV_ITS ---
Mauro Solis Age: 66 Gender: M : 1955 Exam Date: 09/11/2021 07:55 Ordering Phys: Qamar Morales DO Technologist: Harman Strange Exam Location: [facility] [place] Indication: congestive heart failure BP: 151 / 107 HR: 92 Rhythm: Sinus Technical Quality: Adequate MEASUREMENTS (Male / Female) Normal Values 2D ECHO LV Diastolic Diameter PLAX 4.4 cm 4.2 - 5.9 / 3.9 - 5.3 cm LV Systolic Diameter PLAX 3.1 cm IVS Diastolic Thickness 1.2 cm 0.6 - 1.0 / 0.6 - 0.9 cm IVS Systolic Thickness 1.7 cm LVPW Diastolic Thickness 1.7 cm 0.6 - 1.0 / 0.6 - 0.9 cm LVPW Systolic Thickness 1.6 cm LVOT Diameter 2.1 cm LV Ejection Fraction 2D Teich 57.0 % LV Ejection Fraction MOD 2C 61.7 % LV Ejection Fraction 2C AL 63.1 % LA Diameter 4.9 cm Aorta at Sinotubular Diameter 2.9 cm M-MODE Aortic Annulus Diameter 4.3 cm LA Ao Ratio MM 1.1 DOPPLER AV Peak Velocity 124.0 cm/s LVOT Peak Velocity 115.0 cm/s AV Area Cont Eq vti 3.0 cm squared AV Area Cont Eq pk 3.1 cm squared MV Area PHT 5.0 cm squared Mitral E to A Ratio 0.9 MV E' Velocity 111.0 cm/s TR Peak Velocity 214.0 cm/s TR Peak Gradient 18.3 mmHg TV Peak E Velocity 115.0 cm/s Right Atrial Pressure 3.0 mmHg Pulmonary Artery Systolic Pressu 21.3 mmHg PV Peak Velocity 113.0 cm/s FINDINGS Left Ventricle Technically very difficult study. IV contrast, Optison was used for visualization of the ventricle. Normal left ventricular size and systolic function, EF 64 %. No gross wall motion normalities. Right Ventricle Normal RV size and ejection fraction. Right Atrium Could not visualize well Left Atrium Possibly of normal size. Could not be visualized well. Mitral Valve No gross abnormalities noted Aortic Valve Appears to be thickened. The leaflets could not be visualized well Tricuspid Valve Could not be visualized well Pulmonic Valve Pulmonic valve not well visualized. Pericardium No pericardial effusion. Aorta Normal aortic root size CONCLUSIONS Technically very difficult study. IV contrast, Optison was used for visualization of the ventricle. Normal left ventricular size and systolic function, EF 64 %. No gross wall motion normalities. Normal RV size and ejection fraction. There is no pericardial effusion. Further interpretation is not possible. Dr Robb Banegas MD FAC (Electronically Signed) Final Date: 11 Sep 2021 15:28 S
[2021-09-11 04:36] LABS: Basophils % 0.5 %; Eosinophils # 0.1 10^3/uL (0.0-0.8); Eosinophils % 1.4 %; Hematocrit 36.6 % (42.0-52.0); Hemoglobin 10.9 g/dL (11.7-16.6); Lymphocytes # 1.9 10^3/uL (0.8-4.8); Lymphocytes % 22.4 %; Mean Corpuscular HGB Conc 29.8 g/dL (30.0-36.0); Mean Corpuscular Hemoglobin 24.9 pg (28.0-34.0); Mean Corpuscular Volume 83.8 fl (80-94); Mean Platelet Volume 9.8 fL (7.4-10.4); Monocytes # 0.8 10^3/uL (0.2-0.9); Monocytes % 8.7 %; Neutrophils # 5.73 10^3/uL (1.8-7.7); Neutrophils % 66.5 %; Nucleated Red Blood Cells % 0 %; Platelet Count 206 10^3/cmm (130-400); Red Blood Count 4.37 10^6/uL (4.1-5.3); Red Cell Distribution Width 14.8 % (12.1-15.1); White Blood Count 8.6 10^3/uL (4.0-10.0)
[2021-09-11 04:50] LABS: Estmated Average Glucose 249; Hemoglobin A1C 10.3 % (4.0-6.0)
[2021-09-11 04:54] LABS: Alanine Aminotransferase 21 U/L (0-41); Albumin Level 3.8 g/dL (3.5-5.2); Alkaline Phosphatase 59 IU/L (40-130); Anion Gap 17.6 (5-19); Aspartate Amino Transferase 27 U/L (0-40); Blood Urea Nitrogen 21 mg/dL (8-23); Calcium 9.3 mg/dL (8.5-10.5); Carbon Dioxide 27 mmol/L (22-29); Chloride 95 mmol/L (98-107); Chol HDL Ratio 5.57 mg/dL (1.0-5.00); Cholesterol 156 mg/dL (0-200); Globulin 2.6 g/dL (1.3-4.6); Glomerular Filtration Rate 55.2 mL/min (90-130); Glucose 148 mg/dL (65-115); HDL Cholesterol 28 mg/dL (60-100); LDL Cholesterol Calculated 83 mg/dL (50-129); Magnesium 2.2 mg/dL (1.7-2.3); Osmolality Calculated 288 mOsm/kg (285-295); Potassium 3.6 mmol/L (3.5-5.1); Sodium 136 mmol/L (136-145); Total Bilirubin 0.3 mg/dL (0.15-1.2); Total Protein 6.4 g/dL (6.6-8.7); Triglycerides 223 mg/dL (0-150); VLDL Cholestrol Calculation 45 mg/dL (0-30)
[2021-09-11] MEDS: acetaminophen 325 mg Tablet 650 MG PO ×3 (05:41→23:41)
[2021-09-11] MEDS: ferrous gluconate 324 mg Tablet PO ×2 (08:11→17:35)
[2021-09-11] MEDS: benzonatate 100 mg Capsule PO ×3 (08:12→20:33)
[2021-09-11] MEDS: fenofibrate 145 mg Tablet PO (08:12)
[2021-09-11] MEDS: spironolactone 25 mg Tablet 12.5 MG PO (08:12)
[2021-09-11] MEDS: rivaroxaban 10 mg Tablet 20 MG PO (08:12)
[2021-09-11] MEDS: potassium chloride ER 20 mEq Tablet PO (08:12)
[2021-09-11] MEDS: metoprolol tartrate 50 mg Tablet 75 MG PO (08:13)
[2021-09-11] MEDS: ezetimibe 10 mg Tablet PO (08:13)
[2021-09-11] MEDS: bisacodyl 5 mg Tablet 10 MG PO (08:13)
[2021-09-11] MEDS: pantoprazole DR 40 mg Tablet PO ×2 (08:13→17:34)
[2021-09-11] MEDS: FUROsemide 10 mg/mL SDV 10mL 60 MG IVP ×2 (08:14→18:45)
[2021-09-11] MEDS: isosorbide mononitrate ER 30 mg Tablet PO (08:14)
[2021-09-11] MEDS: perflutren protein-a microsphr 0.22 mg/mL SDV 3 mL IV (08:22)
[2021-09-11] MEDS: calcium carbonate 500 mg Chew Tablet 1000 MG PO ×2 (08:33→14:41)
[2021-09-11] MEDS: diclofenac 1% Topical Gel 100 gm 1 APPLIC TOPICAL ×3 (14:39→20:33)
[2021-09-11] MEDS: hyDRALAzine 20 mg/mL INJ 1 mL 10 MG IVP (16:02)
--- NOTE | 2021-09-11 16:10 | PM.PN ---
Subjective Subjective: No acute vents overnight. Patient states he still having pain in the right upper quadrant which was bandlike radiating to back. Denies any nausea, vomiting, headache. Blood pressures noticed to be on the higher side. Vitals/I&O/Wt Last Vital Signs Temp 98.1 F 09/11/21 15:26 Pulse 101 H 09/11/21 15:26 Resp 18 09/11/21 15:26 BP 187/123 09/11/21 15:29 Pulse Ox 92 09/11/21 15:26 09/11/21 09/11/21 09/11/21 06:59 14:59 22:59 Intake Total 1320 / 1320 Output Total 2900 / 2900 Balance -1580 / -1580 Weight last 48 hrs Weight 184.159 kg Weight 184.3 kg Weight 186.426 kg Physical Exam Narrative: General: No acute distress, AO x3, pleasant, morbidly obese HEENT: PERRLA, pupils bilaterally equal and reactive Chest: Bilateral equal good air entry, distant breath sounds, occasional rhonchi CVS: S1-S2 irregularly irregular, distant heart sounds, no tachycardia, no gallops, no rubs Abdomen: Soft, nontender, no organomegaly, bowel sounds present Neuro: No focal deficits, no facial deformity, AO x3, power 5/5 in all limbs Data : 09/11/21 04:25 09/11/21 04:25 Micro: Microbiology 09/10/21 17:40 MRSA Culture - Final Nose 09/10/21 17:40 Legionella Urinary Antigen - Final Urine,Voided A&P Assessment and plan (1) Chest pain: Status: Acute Qualifiers: Chest pain type: unspecified Qualified Code(s): R07.9 - Chest pain, unspecified (2) Dyspnea: Status: Acute (3) Diastolic heart failure: Status: Acute Qualifiers: Heart failure chronicity: chronic Qualified Code(s): I50.32 - Chronic diastolic (congestive) heart failure (4) Atrial fibrillation: Status: Acute (5) LINDA on CPAP: Status: Acute (6) Morbid obesity with BMI of 60.0-69.9, adult: Status: Acute (7) Uncontrolled type 2 diabetes mellitus: Status: Acute Qualifiers: Glycemic state: with hyperglycemia Qualified Code(s): E11.65 - Type 2 diabetes mellitus with hyperglycemia Plan 66-year-old gentleman with past medical history of A. fib, diastolic heart failure, recent normal angiogram in last 2 years presents to the ER with chest pain radiating to epigastric and back along the right upper quadrant of abdomen along with shortness of breath. 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 Pancreatitis or any abdominal cause ruled out with a negative CT abdomen pelvis. Cycle troponins negative. Could be secondary to GERD versus musculoskeletal. Patient does states pain getting worse on moving the arm. Superficial diclofenac application. Heating pad. Flexeril twice daily as needed. Tramadol 50 every 6 as needed. Continue home dose of Protonix 40 mg twice daily. Start on Carafate, Zofran as needed. Continue with fenofibrate, ezetimibe, baby aspirin, Imdur. Dyspnea: Does have history of diastolic heart failure. Echocardiogram results appreciated. IV Lasix 60 mg twice daily. Continue with home dose of spironolactone. CT chest results appreciated. proBNP mildly elevated. Cannot rule out inflammatory pneumonitis. Flu swab and COVID-19 PCR negative. Continue with DuoNebs and budesonide. Does have history of obstructive sleep apnea. CPAP at home settings overnight. Uncontrolled type 2 diabetes mellitus: HbA1c 10.3. Insulin sliding scale. Hold OHA's. Hypertension: Goal blood pressure less than 140/90 mmHg. Blood pressure elevated. Hydralazine 10 mg IV every 4 hours as needed for systolic blood pressure more than 170 mmHg. Continue with home dose of verapamil. Increase home dose of Imdur to 60 mg twice daily, metoprolol 200 mg twice daily. Monitor orthostatics. Atrial fibrillation: Rate controlled. Continue with home dose of verapamil, metoprolol. Continue with home dose of Xarelto. Full code. Cardiac carb consistent diet. Fluid restriction up to 2 L. Xarelto will suffice for DVT prophylaxis. Attestations Medical Necessity Statement*: Requires further hospitalization for management of diastolic heart failure, uncontrolled hypertension, right upper quadrant pain under evaluation. Time Spent in Patient Care: Greater than 35 minutes Coding Level of Care Code Acute Change House Attendant for [facility] Fwd Diagnoses Chest pain R07.9 Chest pain type: unspecified Dyspnea R06.00 Diastolic heart failure I50.32 Heart failure chronicity: chronic Atrial fibrillation I48.91 LINDA on CPAP G47.33; Z99.89 Morbid obesity with BMI of 60.0-69.9, adult E66.01; Z68.44 Uncontrolled type 2 diabetes mellitus E11.65 Glycemic state: with hyperglycemia
[2021-09-11] MEDS: isosorbide mononitrate ER 30 mg Tablet 60 MG PO (17:34)
[2021-09-11] MEDS: metoprolol tartrate 50 mg Tablet 100 MG PO (18:00)
[2021-09-11] MEDS: allopurinol 100 mg Tablet 200 MG PO (20:33)
[2021-09-11] MEDS: ropinirole 0.25 mg Tablet PO (20:33)
[2021-09-12] VITALS (12 sets, daily range): BP systolic 132–172; BP diastolic 79–112; PULSE 86–118; RESP 14–21; TEMP 36.3–37.3; O2SAT 92–97
--- NOTE | 2021-09-12 00:37 | PC.NURSE ---
Pt lying in bed resting with eyes closed and C-pap on. Pts resp even and non-labored no distress or sob noted. Pt had no c/o pain or discomfort at the present time. No needs voiced at the present time. Call light in reach. Will continue to monitor.
[2021-09-12] MEDS: morphine IR 15 mg Tablet PO (02:21)
--- NOTE | 2021-09-12 07:20 | PC.NURSE ---
patient drank approximately half of a 500ml water bottle.
[2021-09-12] MEDS: metoprolol tartrate 50 mg Tablet 100 MG PO ×2 (07:52→17:14)
[2021-09-12] MEDS: isosorbide mononitrate ER 30 mg Tablet 60 MG PO ×2 (07:52→17:15)
[2021-09-12] MEDS: potassium chloride ER 20 mEq Tablet PO (07:53)
[2021-09-12] MEDS: pantoprazole DR 40 mg Tablet PO ×2 (07:53→17:15)
[2021-09-12] MEDS: spironolactone 25 mg Tablet 12.5 MG PO (07:54)
[2021-09-12] MEDS: ferrous gluconate 324 mg Tablet PO ×2 (07:55→17:15)
[2021-09-12] MEDS: FUROsemide 10 mg/mL SDV 10mL 60 MG IVP ×2 (07:55→19:25)
[2021-09-12 08:26] LABS: Glucose Point of Care 266 mg/dL (70-110)
[2021-09-12] MEDS: rivaroxaban 10 mg Tablet 20 MG PO (08:47)
[2021-09-12] MEDS: fenofibrate 145 mg Tablet PO (08:47)
[2021-09-12] MEDS: ezetimibe 10 mg Tablet PO (08:47)
[2021-09-12] MEDS: benzonatate 100 mg Capsule PO ×3 (08:47→19:25)
[2021-09-12] MEDS: bisacodyl 5 mg Tablet 10 MG PO (08:47)
[2021-09-12] MEDS: alum-mag-hydroxide-sime 30 mL UDC 15 ML PO ×3 (08:48→19:24)
[2021-09-12] MEDS: insulin lispro 100 unit/1 mL SUBCUT ×3 (08:49→17:16)
--- NOTE | 2021-09-12 10:20 | PC.CHAP ---
Pastoral Care Encounter/Spiritual Assessment Type of Contact [] Declined vocal performer visit [] Patient/Family/Request visit [] Outpatient visit [] Follow-up visit [] Physician referral [] Code/Alert [] Routine visit [] Staff referral [] Actively dying [] Patient sleeping [] Family support [] [] Out of room [] Palliative care [] [] Receiving care in room [] Pre-surgical visit [] Trauma [] Long length of stay [] ICU visit [] Other: Relational/Emotional Strength [] Patient feels connected with others/family/visitors/staff [] Distress [] Loneliness/isolation [] Abandonment Spirituality of Patient [] Person of Alexandra [] Attends Church of their Alexandra [] Believes in Prayer [] Reads Bible or Protestant materials [] There are Spiritual issues to be addressed Windows Consultant Interventions [] Prayer [] Active listening [] Non-anxious presence [] Spiritual/emotional support [] Crisis/trauma care [] Spiritual counseling [] Bereavement support [] Provided bereavement packet [] Provided Bible/devotional materials [] Provided toy/stuffed animal, coloring book to patient or family member [] Provided Communion [] Anointing/[place] [] Salvation [x] Completed spiritual assessment [] Other: Impact on Illness or Injury [] Angry [] Fearful [] Anxious [] Often cries [] Exhaustion [] Unable to work [] Unable to attend hoahaoism [] Unable to walk/stand [] Unable to read [] Unable to drive [] Unable to eat/drink [] Unable to sleep [] Unable to be with family [] Patient intubated [] Other: Summary JW... prayed outside room Time spent with patient
[2021-09-12 11:30] LABS: Glucose Point of Care 287 mg/dL (70-110)
[2021-09-12] MEDS: diclofenac 1% Topical Gel 100 gm 1 APPLIC TOPICAL ×3 (13:04→19:26)
--- NOTE | 2021-09-12 13:29 | PC.NURSE ---
500ml of water
[2021-09-12 16:04] LABS: Glucose Point of Care 243 mg/dL (70-110)
--- NOTE | 2021-09-12 17:07 | PM.PN ---
Subjective Subjective: Patient was seen and examined this morning, he has continued to complain of right upper quadrant abdominal pain Radiating to the back. Medications: Medication Review Details: Generic Name Dose Route Start Last Admin Trade Name Freq PRN Reason Stop Dose Admin Acetaminophen 650 mg 09/10/21 16:50 09/11/21 23:41 Acetaminophen 32 5 Mg Tablet PO 650 mg Q6H PRN Administration Mild/Mod Pain Or Temp >/= 101 Al Hydrox/Mg [place] x/Simethicone 15 ml 09/12/21 08:45 09/12/21 16:33 Wuvk-Sxq-Pgenezn de-Diandra 30 Ml Udc PO 15 ml Q6H NORA Administration Allopurinol 200 mg 09/10/21 21:00 09/11/21 20:33 Allopurinol 100 Mg Tablet PO 200 mg BEDTIME NORA Administration Benzonatate 100 mg 09/10/21 21:00 09/12/21 16:34 Benzonatate 100 Mg Capsule PO 100 mg TID NORA Administration Bisacodyl 10 mg 09/10/21 16:50 09/12/21 08:47 Bisacodyl 5 Mg T ablet PO 10 mg DAILY PRN Administration Constipation (see protocol) Protocol Calcium Carbonate 1,000 mg 09/10/21 16:50 09/11/21 14:41 Calcium Carbonat e 500 Mg Chew Tabl et PO 1,000 mg Q4H PRN Administration DYSPEPSI Diclofenac Sodium 1 applic 09/11/21 13:00 09/12/21 17:16 Diclofenac 1% To pical Gel 100 Gm TOPICAL 1 applic QID NORA Administration Ezetimibe 10 mg 09/11/21 09:00 09/12/21 08:47 Ezetimibe 10 Mg Tablet PO 10 mg DAILY NORA Administration Fenofibrate 145 mg 09/11/21 09:00 09/12/21 08:47 Fenofibrate 145 Mg Tablet PO 145 mg DAILY NORA Administration Ferrous Gluconate 324 mg 09/10/21 18:00 09/12/21 17:15 Ferrous Gluconat e 324 Mg Tablet PO 324 mg BIDWM NORA Administration Furosemide 60 mg 09/11/21 07:15 09/12/21 07:55 Furosemide 10 Mg /Ml Sdv 10ml IVP 60 mg Q12H NORA Administration Hydralazine HCl 10 mg 09/11/21 15:47 09/11/21 16:02 Hydralazine 20 M g/Ml Inj 1 Ml IVP 10 mg Q4H PRN Administration SYSTOLIC BLOOD [place] ESSURE Insulin Human Lisp ro 0 unit 09/12/21 08:00 09/12/21 17:16 Insulin Lispro 1 00 Unit/1 Ml SUBCUT 6 unit TIDWM NORA Administration Protocol Isosorbide Mononit rate 60 mg 09/11/21 18:00 09/12/21 17:15 Isosorbide [place] itrate Er 30 Mg Ta blet PO 60 mg BID NORA Administration Metoprolol Tartrat e 100 mg 09/11/21 18:00 09/12/21 17:14 Metoprolol Tartr ate 50 Mg Tablet PO 100 mg BID NORA Administration Non-Formulary 1 each 09/12/21 09:00 09/12/21 08:48 Medication ( PO 1 each Verapamil Er 240 M g DAILY NORA Administration Tablet) Pantoprazole Sodiu m 40 mg 09/10/21 18:00 09/12/21 17:[address] 40 Mg Tablet PO 40 mg BID NORA Administration Potassium Chloride 20 meq 09/11/21 09:00 09/12/21 07:53 Potassium Chlori de Er 20 Meq Table t PO 20 meq DAILY NORA Administration Rivaroxaban 20 mg 09/11/21 09:00 09/12/21 08:47 Rivaroxaban 10 M g Tablet PO 20 mg DAILY NORA Administration Ropinirole HCl 0.25 mg 09/10/21 21:00 09/11/21 20:33 Ropinirole 0.25 Mg Tablet PO 0.25 mg BEDTIME NORA Administration Spironolactone 12.5 mg 09/11/21 09:00 09/12/21 07:54 Spironolactone 2 5 Mg Tablet PO 12.5 mg DAILY NORA Administration Vitals/I&O/Wt Last Vital Signs Temp 97.8 F 09/12/21 15:44 Pulse 96 09/12/21 15:44 Resp 21 H 09/12/21 15:44 BP 147/93 09/12/21 15:44 Pulse Ox 92 09/12/21 15:44 09/12/21 09/12/21 09/12/21 06:59 14:59 22:59 Intake Total 1600 / 1600 Output Total 900 / 6100 1200 / 1200 Balance -900 / -4300 400 / 400 Weight last 48 hrs Weight 183.75 kg Weight 183.75 kg Weight 184.159 kg Weight 184.3 kg Physical Exam Const: COMMON NORMALS: patient oriented x3 HENMT: COMMON NORMALS: normocephalic, atraumatic, hearing grossly normal bilaterally and external ears normal HEAD & SCALP: normocephalic and atraumatic EXTERNAL EAR: Yes external ears normal Eye: COMMON NORMALS: no scleral icterus GENERAL EYE: appearance normal, both eyes and all related structures Chest: COMMONS NORMALS: normal inspection of the chest and normal palpation of entire chest wall CHEST: Yes Symmetrical chest wall rise Resp: COMMON NORMALS: normal respiratory effort, No retractions, No use of accessory muscles and clear to auscultation bilaterally EFFORT & INSPECTION: Yes symmetric chest movement AUSCULTATION: clear to auscultation bilaterally Cardio: COMMON NORMALS: regular rate, regular rhythm, S1 normal heart sound present, S2 normal heart sound present, No gallops present (Cardio), No murmurs present (Cardio), No rub (Cardio) and Peripheral pulses 2+ throughout RATE: regular rate RHYTHM: regular rhythm HEART SOUNDS: S1 normal heart sound present and S2 normal heart sound present PERIPHERAL PULSES: Peripheral pulses 2+ throughout GI: COMMON NORMALS: Normal to inspection, nondistended, normoactive bowel sounds present, Soft to palpation, non-tender, No hepatosplenomegaly present and no masses AUSCULTATION: Yes normoactive bowel sounds PALPATION: Yes Soft to palpation and Yes No hepatosplenomegaly present RECTAL EXAM: Yes deferred Extremity: COMMON NORMALS: no clubbing, cyanosis or edema and no pedal edema Neuro: COMMON NORMALS: patient oriented x3 Data : 09/11/21 04:25 09/11/21 04:25 A&P Assessment and plan (1) Chest pain: Status: Acute Qualifiers: Chest pain type: unspecified Qualified Code(s): R07.9 - Chest pain, unspecified (2) Dyspnea: Status: Acute (3) Diastolic heart failure: Status: Acute Qualifiers: Heart failure chronicity: chronic Qualified Code(s): I50.32 - Chronic diastolic (congestive) heart failure (4) Atrial fibrillation: Status: Acute (5) LINDA on CPAP: Status: Acute (6) Morbid obesity with BMI of 60.0-69.9, adult: Status: Acute (7) Uncontrolled type 2 diabetes mellitus: Status: Acute Qualifiers: Glycemic state: with hyperglycemia Qualified Code(s): E11.65 - Type 2 diabetes mellitus with hyperglycemia Plan 66-year-old gentleman with past medical history of A. fib, diastolic heart failure, recent normal angiogram in last 2 years presents to the ER with chest pain radiating to epigastric and back along the right upper quadrant of abdomen along with shortness of breath. 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 Pancreatitis or any abdominal cause ruled out with a negative CT abdomen pelvis. Cycle troponins negative. Could be secondary to GERD versus musculoskeletal. Patient does states pain getting worse on moving the arm. Superficial diclofenac application. Heating pad. Flexeril twice daily as needed. Tramadol 50 every 6 as needed. Continue home dose of Protonix 40 mg twice daily. Start on Carafate, Zofran as needed. Continue with fenofibrate, ezetimibe, baby aspirin, Imdur. Dyspnea: Does have history of diastolic heart failure. Echocardiogram results appreciated. IV Lasix 60 mg twice daily. Continue with home dose of spironolactone. CT chest results appreciated. proBNP mildly elevated. Cannot rule out inflammatory pneumonitis. Flu swab and COVID-19 PCR negative. Continue with DuoNebs and budesonide. Does have history of obstructive sleep apnea. CPAP at home settings overnight. Uncontrolled type 2 diabetes mellitus: HbA1c 10.3. Insulin sliding scale. Hold OHA's. Hypertension: Goal blood pressure less than 140/90 mmHg. Blood pressure elevated. Hydralazine 10 mg IV every 4 hours as needed for systolic blood pressure more than 170 mmHg. Continue with home dose of verapamil. Increase home dose of Imdur to 60 mg twice daily, metoprolol 200 mg twice daily. Monitor orthostatics. Atrial fibrillation: Rate controlled. Continue with home dose of verapamil, metoprolol. Continue with home dose of Xarelto. Full code. Cardiac carb consistent diet. Fluid restriction up to 2 L. Xarelto will suffice for DVT prophylaxis. Attestations Medical Necessity Statement*: Patient is to be in hospital for management and evaluation of right upper quadrant abdominal pain. Coding Level of Care Code Acute [employer] for Marcelle Bang Diagnoses Chest pain R07.9 Chest pain type: unspecified Dyspnea R06.00 Diastolic heart failure I50.32 Heart failure chronicity: chronic Atrial fibrillation I48.91 LINDA on CPAP G47.33; Z99.89 Morbid obesity with BMI of 60.0-69.9, adult E66.01; Z68.44 Uncontrolled type 2 diabetes mellitus E11.65 Glycemic state: with hyperglycemia
[2021-09-12] MEDS: ropinirole 0.25 mg Tablet PO (19:25)
[2021-09-12] MEDS: allopurinol 100 mg Tablet 200 MG PO (19:25)
[2021-09-12] MEDS: acetaminophen 325 mg Tablet 650 MG PO (20:08)
[2021-09-12 20:14] LABS: Glucose Point of Care 249 mg/dL (70-110)
[2021-09-13] VITALS (7 sets, daily range): BP systolic 140–159; BP diastolic 83–85; PULSE 74–101; RESP 14–19; TEMP 36.6–36.8; O2SAT 93–97
--- NOTE | 2021-09-13 03:28 | PC.NURSE ---
Patient reports feeling comfortable at this time. No distress observed. Refused this am dose of Maalox.
[2021-09-13 05:18] LABS: Basophils # 0.1 10^3/uL (0.0-0.1); Basophils % 0.7 %; Eosinophils # 0.1 10^3/uL (0.0-0.8); Eosinophils % 1.6 %; Hemoglobin 10.7 g/dL (11.7-16.6); Lymphocytes # 1.7 10^3/uL (0.8-4.8); Lymphocytes % 22.9 %; Mean Corpuscular HGB Conc 30.6 g/dL (30.0-36.0); Mean Corpuscular Volume 81.8 fl (80-94); Mean Platelet Volume 9.9 fL (7.4-10.4); Monocytes # 0.7 10^3/uL (0.2-0.9); Monocytes % 9.4 %; Neutrophils % 64.6 %; Nucleated Red Blood Cells % 0.4 %; Platelet Count 221 10^3/cmm (130-400); Red Blood Count 4.28 10^6/uL (4.1-5.3); White Blood Count 7.6 10^3/uL (4.0-10.0)
[2021-09-13 05:38] LABS: Alanine Aminotransferase 22 U/L (0-41); Albumin Level 3.9 g/dL (3.5-5.2); Alkaline Phosphatase 64 IU/L (40-130); Anion Gap 13.7 (5-19); Aspartate Amino Transferase 24 U/L (0-40); Blood Urea Nitrogen 27 mg/dL (8-23); Calcium 9.7 mg/dL (8.5-10.5); Carbon Dioxide 30 mmol/L (22-29); Chloride 92 mmol/L (98-107); Glomerular Filtration Rate 46.8 mL/min (90-130); Glucose 228 mg/dL (65-115); Osmolality Calculated 286 mOsm/kg (285-295); Potassium 3.7 mmol/L (3.5-5.1); Sodium 132 mmol/L (136-145); Total Bilirubin 0.4 mg/dL (0.15-1.2); Total Protein 6.9 g/dL (6.6-8.7)
[2021-09-13 05:44] LABS: Creatinine Clr Calc Pharmacy 80.3722
[2021-09-13 05:48] LABS: Glucose Point of Care 220 mg/dL (70-110)
[2021-09-13] MEDS: FUROsemide 10 mg/mL SDV 10mL 60 MG IVP (06:23)
[2021-09-13] MEDS: isosorbide mononitrate ER 30 mg Tablet 60 MG PO (08:06)
[2021-09-13] MEDS: fenofibrate 145 mg Tablet PO (08:06)
[2021-09-13] MEDS: rivaroxaban 10 mg Tablet 20 MG PO (08:06)
[2021-09-13] MEDS: bisacodyl 5 mg Tablet 10 MG PO (08:07)
[2021-09-13] MEDS: spironolactone 25 mg Tablet 12.5 MG PO (08:07)
[2021-09-13] MEDS: benzonatate 100 mg Capsule PO (08:08)
[2021-09-13] MEDS: ferrous gluconate 324 mg Tablet PO (08:10)
[2021-09-13] MEDS: ezetimibe 10 mg Tablet PO (08:10)
[2021-09-13] MEDS: potassium chloride ER 20 mEq Tablet PO (08:10)
[2021-09-13] MEDS: metoprolol tartrate 50 mg Tablet 100 MG PO (08:10)
[2021-09-13] MEDS: alum-mag-hydroxide-sime 30 mL UDC 15 ML PO (08:11)
[2021-09-13] MEDS: pantoprazole DR 40 mg Tablet PO (08:11)
[2021-09-13] MEDS: insulin lispro 100 unit/1 mL SUBCUT (08:12)
[2021-09-13] MEDS: acetaminophen 325 mg Tablet 650 MG PO (09:44)
--- NOTE | 2021-09-13 10:47 | P.DS_ITS ---
Discharge Providers Date of Admission: 09/10/21 13:39 Date of Discharge: September 13, 2021 Attending Provider at Admission: Reagan Talbot MD Attending Provider at Discharge: Paul Santos MD Primary Care Provider: Lilian Mcintyre Diagnoses at Discharge Discharge Diagnosis (1) Chest pain: Status: Acute Qualifiers: Chest pain type: unspecified Qualified Code(s): R07.9 - Chest pain, unspecified Permanent problem details: Patient underwent coronary angiogram which was normal (2) Dyspnea: Status: Acute (3) Diastolic heart failure: Status: Acute Qualifiers: Heart failure chronicity: chronic Qualified Code(s): I50.32 - Chronic diastolic (congestive) heart failure (4) Atrial fibrillation: Status: Acute Permanent problem details: on anticoagulation (5) LINDA on CPAP: Status: Acute (6) Morbid obesity with BMI of 60.0-69.9, adult: Status: Acute (7) Uncontrolled type 2 diabetes mellitus: Status: Acute Qualifiers: Glycemic state: with hyperglycemia Qualified Code(s): E11.65 - Type 2 diabetes mellitus with hyperglycemia Reason for Visit Reason for Visit: Chest pain, SOB, N/V Hospital Course Hospital Course HPI: Reagan Talbot MD Mauro Solis is a 66 year old male with past medical history of atrial fibrillation on Xarelto, morbid obesity, diastolic heart failure, CKD with baseline creatinine of around 1.7, CAD with last angiogram done in 2019 showing nonobstructive CAD with LAD of 20% lesion, hypertensive, rheumatoid arthritis, substernal thyroid goiter presented to the ER today complaining of retrosternal chest heaviness and pain along with epigastric pain radiating to back from the right upper quadrant bandlike pain getting aggravated on minimal ambulation and when taking a deep breath along with shortness of breath.? Patient states he is always short of breath but this is more than usual.? Denies any vomiting but does complain of nausea.? States he has been having swelling in his legs which has been getting worse.? Only change in medication is that he was put on Bumex 18.? Lasix with her increased by nurse practitioner for cardiology few weeks ago.? Has been vaccinated for COVID and flu. Hospital course: Patient was admitted for the management of chest pain likely noncardiac chest pain, troponin trend was negative, no significant ST-T wave changes on EKG, 2D echo: Normal left ventricular size and systolic function, EF 64 %.?No gross wall motion normalities.?Normal RV size and ejection fraction. CTA chest: No pulmonary embolism, Ascending thoracic aorta is prominent measuring 4.8 cm, negative for dissection or rupture.?CT abdomen pelvis wo con: Negative for acute inflammatory process in the abdomen or pelvis.?Supraumbilical ventral abdominal hernia containing bowel and omentum without bowel dilation or inflammation. Bilateral lower extremity Doppler negative for dvt. Patient has coronary angiogram done 2 years back which had showed nonobstructive coronary artery disease. Currently looks like chest pain is noncardiac, possibly MSK, GERD. Patient was managed conservatively with pain control Protonix, muscle relaxant, topical NSAIDs. He has been asked to follow-up with the cardiology in 1 week, and if needed a stress test can be pursued later. Patient was also managed for uncontrolled hypertension: Imdur dose has been increased to 60 mg p.o. twice daily Metoprolol tartrate dose has been increased 100 mg p.o. twice daily from his initial dose of 50 p.o. twice daily, spironolactone and verapamil has been continued. Patient was continued to be managed for his other comorbid conditions. Overall he has responded well to above medical management and is being discharged home in stable condition.He will continue to follow with his primary care physician as well as cardiology as outpatient. Physical Exam Const: COMMON NORMALS: patient oriented x3 HENMT: COMMON NORMALS: normocephalic, atraumatic, hearing grossly normal bilaterally and external ears normal HEAD & SCALP: normocephalic and atraumatic EXTERNAL EAR: Yes external ears normal Eye: COMMON NORMALS: no scleral icterus GENERAL EYE: appearance normal, both eyes and all related structures Chest: COMMONS NORMALS: normal inspection of the chest and normal palpation of entire chest wall CHEST: Yes Symmetrical chest wall rise Resp: COMMON NORMALS: normal respiratory effort, No retractions, No use of accessory muscles and clear to auscultation bilaterally EFFORT & INSPECTION: Yes symmetric chest movement AUSCULTATION: clear to auscultation bilaterally Cardio: COMMON NORMALS: regular rate, regular rhythm, S1 normal heart sound present, S2 normal heart sound present, No gallops present (Cardio), No murmurs present (Cardio), No rub (Cardio) and Peripheral pulses 2+ throughout RATE: regular rate RHYTHM: regular rhythm HEART SOUNDS: S1 normal heart sound present and S2 normal heart sound present PERIPHERAL PULSES: Peripheral pulses 2+ throughout GI: COMMON NORMALS: Normal to inspection, nondistended, normoactive bowel sounds present, Soft to palpation, non-tender, No hepatosplenomegaly present and no masses AUSCULTATION: Yes normoactive bowel sounds PALPATION: Yes Soft to palpation and Yes No hepatosplenomegaly present RECTAL EXAM: Yes deferred Extremity: COMMON NORMALS: no clubbing, cyanosis or edema and no pedal edema Neuro: COMMON NORMALS: patient oriented x3 Discharge Data Studies Completed and Pending Completed Studies During Hospitalization Category Date Time Status CT abdomen pelvis wo con [id number] Routine Cat Scan 09/10/21 16:38 Completed CTA thoracic [CT angio chest [id number]] Stat Cat Scan 09/10/21 13:26 Completed XR chest 1V portable [id number] Stat Exams 09/10/21 10:13 [place] [id number] Urgent Ultrasound 09/10/21 16:51 Completed CV. echo wo/w contrast [id number] Routine Ultrasound 09/11/21 03:13 Completed Pending at discharge Category Date Time Status CBC Auto Diff [Complete Blood Count w/Auto] AM LABS Lab 09/14/21 04:00 Ordered CBC Auto Diff [Complete Blood Count w/Auto] AM LABS Lab 09/15/21 04:00 Ordered CMP [Comprehensive Metabolic Panel] AM LABS Lab 09/14/21 04:00 Ordered CMP [Comprehensive Metabolic Panel] AM LABS Lab 09/15/21 04:00 Ordered Radiology Impressions Chest X-Ray 09/10/21 10:13 IMPRESSION: No acute findings. Chest CTA 09/10/21 13:26 IMPRESSION: 1. Negative for pulmonary embolus, aorta is intact. 2. Ascending thoracic aorta is prominent measuring 4.8 cm, negative for dissection or rupture. 3. Several prominent mediastinal lymph nodes measuring 12 mm, nonspecific. 4. Coronary artery atherosclerotic calcifications. 5. Mild cardiomegaly. 6. Minimal dependent atelectasis. 7. Hepatic steatosis suspected. Abdomen/Pelvis CT 09/10/21 16:38 IMPRESSION: 1. Negative for acute inflammatory process in the abdomen or pelvis. 2. Hepatic steatosis. 3. Contrast in the renal collecting systems and urinary bladder from prior contrast infused exam. 4. Supraumbilical ventral abdominal hernia containing bowel and omentum without bowel dilation or inflammation. Venous Duplex 09/10/21 16:51 IMPRESSION: No evidence of deep vein thrombosis. Laboratory Results WBC 7.6 10^3/uL (4.0-10.0) 09/13/21 04:20 RBC 4.28 10^6/uL (4.1-5.3) 09/13/21 04:20 Hgb 10.7 g/dL (11.7-16.6) L 09/13/21 04:20 Hct 35.0 % (42.0-52.0) L 09/13/21 04:20 MCV 81.8 fl (80-94) 09/13/21 04:20 MCH 25.0 pg (28.0-34.0) L 09/13/21 04:20 MCHC 30.6 g/dL (30.0-36.0) 09/13/21 04:20 RDW 15.0 % (12.1-15.1) 09/13/21 04:20 Plt Count 221 10^3/cmm (130-400) 09/13/21 04:20 MPV 9.9 fL (7.4-10.4) 09/13/21 04:20 Neut % (Auto) 64.6 % 09/13/21 04:20 Lymph % (Auto) 22.9 % 09/13/21 04:20 [place] % (Auto) 9.4 % 09/13/21 04:20 Eos % (Auto) 1.6 % 09/13/21 04:20 Baso % (Auto) 0.7 % 09/13/21 04:20 Neut # (Auto) 4.90 10^3/uL (1.8-7.7) 09/13/21 04:20 Lymph # (Auto) 1.7 10^3/uL (0.8-4.8) 09/13/21 04:20 [place] # (Auto) 0.7 10^3/uL (0.2-0.9) 09/13/21 04:20 Eos # (Auto) 0.1 10^3/uL (0.0-0.8) 09/13/21 04:20 Baso # (Auto) 0.1 10^3/uL (0.0-0.1) 09/13/21 04:20 Nucleated RBC % (auto) 0.4 % 09/13/21 04:20 Nucleated RBCs # 0.0 /100WBC 09/13/21 04:20 Sodium 132 mmol/L (136-145) L 09/13/21 04:20 Potassium 3.7 mmol/L (3.5-5.1) 09/13/21 04:20 Chloride 92 mmol/L (98-107) L 09/13/21 04:20 Carbon Dioxide 30 mmol/L (22-29) H 09/13/21 04:20 Anion Gap 13.7 (5-19) 09/13/21 04:20 BUN 27 mg/dL (8-23) H 09/13/21 04:20 Creatinine 1.5 mg/dL (0.7-1.2) H 09/13/21 04:20 GFR Calculation 46.8 mL/min (90-130) L 09/13/21 04:20 Glucose 228 mg/dL (65-115) H 09/13/21 04:20 POC Glucose 220 mg/dL (70-110) H 09/13/21 05:45 Estimat Average Glucose 249 09/11/21 04:25 Hemoglobin A1c 10.3 % (4.0-6.0) H 09/11/21 04:25 Calculated Osmolality 286 mOsm/kg (285-295) 09/13/21 04:20 Calcium 9.7 mg/dL (8.5-10.5) 09/13/21 04:20 Phosphorus 4.0 mg/dL (2.5-4.5) 09/11/21 04:25 Magnesium 2.2 mg/dL (1.7-2.3) 09/11/21 04:25 Iron 46 ug/dL (59-158) L 09/10/21 10:00 TIBC 442 mcg/dl 09/10/21 10:00 % Saturation 10.4 % (20-50) L 09/10/21 10:00 Unsat Iron Binding 396 ug/dL (112-347) H 09/10/21 10:00 Total Bilirubin 0.4 mg/dL (0.15-1.2) 09/13/21 04:20 AST 24 U/L (0-40) 09/13/21 04:20 ALT 22 U/L (0-41) 09/13/21 04:20 Alkaline Phosphatase 64 IU/L (40-130) 09/13/21 04:20 Troponin T Baseline 16 ng/L (0-15) H 09/10/21 10:00 Troponin T 120 Minute 14.14 ng/L (0-15) 09/10/21 12:05 Delta Troponin T -1.86 ABS# (0-10) L 09/10/21 12:05 Troponin T Hi Sens 6Hr 14.78 ng/L (0-15) 09/10/21 16:44 Troponin T Hi Sens 6Hr Delta -1.22 ng/L (0-12) L 09/10/21 16:44 NT-Pro-B Natriuret Pep 930 pg/mL (0-125) H 09/10/21 10:00 Total Protein 6.9 g/dL (6.6-8.7) 09/13/21 04:20 Albumin 3.9 g/dL (3.5-5.2) 09/13/21 04:20 Globulin 3.0 g/dL (1.3-4.6) 09/13/21 04:20 Triglycerides 223 mg/dL (0-150) H 09/11/21 04:25 Cholesterol 156 mg/dL (0-200) 09/11/21 04:25 LDL Cholesterol, Calc 83 mg/dL (50-129) 09/11/21 04:25 Total VLDL Cholesterol 45 mg/dL (0-30) H 09/11/21 04:25 HDL Cholesterol 28 mg/dL (60-100) L 09/11/21 04:25 Cholesterol/HDL Ratio 5.57 mg/dL (1.0-5.00) H 09/11/21 04:25 Lipase 64 U/L (13-60) H 09/10/21 16:44 Procalcitonin 0.12 ng/mL (0-0.5) 09/10/21 10:00 TSH 2.18 uIU/mL (0.27-4.20) 09/10/21 16:44 Urine Color Yellow (Yellow) 09/10/21 17:40 Urine Appearance Clear (CLEAR) 09/10/21 17:40 Urine pH 5 (5-7) 09/10/21 17:40 Ur Specific [place] 1.010 (1.005-1.030) 09/10/21 17:40 Urine Protein Neg (Negative) 09/10/21 17:40 Urine Glucose (UA) Norm (Normal) 09/10/21 17:40 Urine Ketones Negative (Negative) 09/10/21 17:40 Urine Blood Neg (Negative) 09/10/21 17:40 Urine Nitrate Negative (Negative) 09/10/21 17:40 Urine Bilirubin Neg (Negative) 09/10/21 17:40 Urine Urobilinogen Norm mg/dL (Negative) 09/10/21 17:40 Ur Leukocyte Esterase Negative (Negative) 09/10/21 17:40 Ur Random Sodium 65 mmol/L 09/10/21 17:40 Ur Random Potassium 49 mmol/L 09/10/21 17:40 Ur Random Chloride 89 mmol/L 09/10/21 17:40 Nasal Influ A H1 2008 PCR Not detected (NOT DETECT) 09/10/21 17:40 Coronavirus 229E (PCR) Not detected (NOT DETECT) 09/10/21 17:40 Influenza A (H1) PCR Not detected (NOT DETECT) 09/10/21 17:40 Influenza A (H3) PCR Not detected (NOT DETECT) 09/10/21 17:40 Influenza Type A (PCR) Not detected (NOT DETECT) 09/10/21 17:40 Influenza Type B (PCR) Not detected (NOT DETECT) 09/10/21 17:40 SARS-CoV-2 (PCR) Not detected (NOT DETECT) 09/10/21 17:40 Vitals Last Vital Signs Temp 98.2 F 09/13/21 08:00 Pulse 89 09/13/21 08:00 Resp 14 09/13/21 08:00 BP 159/83 09/13/21 08:00 Pulse Ox 94 09/13/21 08:05 Discharge Plan Discharge Patient Disposition: Home Condition: Stable Prescriptions: New calcium carbonate 200 mg calcium (500 mg) Tablet,Chewable 1,000 mg PO Q4H PRN (Reason: DYSPEPSI) 14 Days Qty: 20 0RF ondansetron HCl 4 mg tablet 4 mg PO Q6H PRN (Reason: nausea and vomiting) 14 Days Qty: 30 0RF Continued Trulicity 0.75 mg/0.5 mL pen injector 3 mg SUBCUT Q7D 0RF Rx Instructions: ON FRIDAYS (DME) blood-glucose meter [Accu-Chek Guide Glucose Meter] Mis See Rx Instructions .ROUTE .MEDSUPPLY Qty: 1 0RF Rx Instructions: As directed (DME) lancets [Accu-Chek Fastclix Lancet Drum] Misc See Rx Instructions .ROUTE .MEDSUPPLY Qty: 200 3RF Rx Instructions: three times/day prednisone 10 mg tablet See Rx Instructions PO .COMPLEX PRN (Reason: gout pain flare) Qty: 30 1RF Rx Instructions: take 1 daily for 4-5 days as needed for gout flare PO PRN; (DME) Diabetic shoes with molded inserts See Rx Instructions .Route .MEDSUPPLY Qty: 1 0RF Rx Instructions: As directed (DME) Diabetic shoes with 3 pairs of inserts See Rx Instructions .Route .MEDSUPPLY Qty: 1 0RF Rx Instructions: As directed fenofibrate nanocrystallized 145 mg tablet 145 mg PO DAILY 0RF acyclovir 5 % ointment See Rx Instructions .ROUTE .COMPLEX 0RF Rx Instructions: aaa topically qid prn ergocalciferol (vitamin D2) 50,000 unit capsule 50,000 unit PO Q30D 0RF Gold [place]antes Ultimate Eczema Rlf 2 % cream 1 applic topical .prn PRN (Reason: feet) 0RF (DME) pen needle, diabetic 31 gauge x 1/4 needle See Rx Instructions .Route Qty: 100 3RF Rx Instructions: As directed acetaminophen [Tylenol Extra Strength] 500 mg tablet 1,000 mg PO Q6H PRN (Reason: Pain) 0RF rivaroxaban 20 mg tablet 20 mg PO DAILY Qty: 90 3RF Hold Instructions: Resume on 04/16/21. potassium chloride 20 mEq tablet extended release 20 meq PO DAILY 0RF mupirocin 2 % ointment 1 applic topical BID 0RF ropinirole 0.25 mg tablet 0.25 mg PO BEDTIME 0RF bumetanide 2 mg tablet See Rx Instructions PO DAILY Qty: 90 3RF Rx Instructions: 2mg in the AM, 1 mg at 2 PM spironolactone 25 mg tablet 12.5 mg PO DAILY Qty: 45 3RF (DME) Diabetic shoes with inserts See Rx Instructions .Route .MEDSUPPLY Qty: 1 0RF Rx Instructions: As directed ketoconazole 2 % cream See Rx Instructions .ROUTE .COMPLEX Qty: 60 2RF Dose Instruction: APPLY CREAM TOPICALLY TO AFFECTED AREA TWICE DAILY FOR 30 DAYS Rx Instructions: APPLY CREAM TOPICALLY TO AFFECTED AREA TWICE DAILY FOR 30 DAYS nitroglycerin [Nitrostat] 0.4 mg tablet, sublingual 0.4 mg SUBLINGUAL DIRECTED 30 Days Qty: 25 6RF (DME) Accu-Chek Guide test strips Strip See Rx Instructions .ROUTE .MEDSUPPLY Qty: 300 3RF Rx Instructions: test blood sugar three times a day ezetimibe 10 mg tablet 10 mg PO DAILY Qty: 90 3RF (DME) pen needle, diabetic [BD Gabriella 2nd Gen Pen Needle] 32 gauge x 5/32 needle See Rx Instructions .Route Qty: 100 3RF Rx Instructions: As directed pantoprazole 40 mg tablet,delayed release (DR/EC) 40 mg PO BID Qty: 180 2RF verapamil 240 mg tablet extended release 240 mg PO DAILY Qty: 90 3RF glimepiride 4 mg tablet 8 mg PO DAILY Qty: 180 3RF Rx Instructions: Take 2 tablets by mouth daily. triamcinolone acetonide 0.1 % cream 1 applic topical BID PRN (Reason: joint inflamation) 0RF allopurinol 100 mg tablet 200 mg PO BEDTIME 0RF diclofenac sodium 1 % gel See Rx Instructions .ROUTE .COMPLEX PRN (Reason: Pain, Mild) 0RF Rx Instructions: 4 grams topically qid prn Changed isosorbide mononitrate 30 mg tablet extended release 24 hr 60 mg PO BID 30 Days Qty: 180 3RF metoprolol tartrate 50 mg tablet 100 mg PO BID 30 Days Qty: 60 3RF Discharge Orders: Discharge Order (Routine); Ordered 09/13/21 Ordered By: Paul Santos Referrals: Patrick Roach M.D [Physician] - 1 month (Please keep your appointment with Dr. Roach on October 24 at 2:15P.M. If you have any questions or need to reschedule. Please call ) Alanna De La Torre FNP [Nurse Practitioner] - 1 week (Please follow-up with Alanna De La Torre on September 21 at 1:15P.M. If you have any questions or need to reschedule. Please call ) Lilian Mcintyre FNP [Primary Care Provider] - (Please follow-up with Lilian Mcintyre at the [facility] on September 16 at 11:30A.M. If you have any questions or need to reschedule. Please call ) Discharge Diet: Cardiac Discharge Activity: Resume usual activity Patient Instructions: Ondansetron (By mouth), Chronic Kidney Disease (DC), Dyspnea (DC), CHF Stoplight Discharge Attestations 2 Time Spent in Discharge Care*: less than 30 min Quality Metrics Clinical Quality Measures [ No reported AMI, CVA or VTE this stay] Coding Level of Care Code Acute Chg FW DC note Diagnoses Chest pain R07.9 Chest pain type: unspecified Dyspnea R06.00 Diastolic heart failure I50.32 Heart failure chronicity: chronic Atrial fibrillation I48.91 LINDA on CPAP G47.33; Z99.89 Morbid obesity with BMI of 60.0-69.9, adult E66.01; Z68.44 Uncontrolled type 2 diabetes mellitus E11.65 Glycemic state: with hyperglycemia
[2021-09-13] MEDS: ondansetron 2 mg/ML SDV 2 mL 4 MG IVP (10:58)
[2021-09-13] MEDS: calcium carbonate 500 mg Chew Tablet 1000 MG PO (10:59)
--- NOTE | 2021-09-13 12:34 | PC.SOCIAL ---
[facility] Update @ 0830 this morning pg 2 of IMM updated and reviewed w/ patient. Copy provided and copy placed in chart.
== END 2021-09-13 12:15 | disposition home or self-care (01) | DRG 291 ==
LOC: ER 13:39 → CSU 14:34
PROVIDERS: Admitting Provider Student in an Organized Health Care Education/Training Program; Emergency Provider Family Medicine; PCP Nurse Practitioner Family; Visit Provider Internal Medicine
DX: I13.0 Hypertensive heart and chronic kidney disease with heart failure and stage 1 through stage 4 chronic kidney disease, or unspecified chronic kidney disease (principal); I50.33 Acute on chronic diastolic (congestive) heart failure; Z68.43 Body mass index [BMI] 50.0-59.9, adult; N18.30 Chronic kidney disease, stage 3 unspecified; E11.22 Type 2 diabetes mellitus with diabetic chronic kidney disease; E11.65 Type 2 diabetes mellitus with hyperglycemia; I48.91 Unspecified atrial fibrillation; D63.1 Anemia in chronic kidney disease; K21.9 Gastro-esophageal reflux disease without esophagitis; E11.42 Type 2 diabetes mellitus with diabetic polyneuropathy; M06.00 Rheumatoid arthritis without rheumatoid factor, unspecified site; I71.6 Thoracoabdominal aortic aneurysm, without rupture; E66.01 Morbid (severe) obesity due to excess calories; I25.10 Atherosclerotic heart disease of native coronary artery without angina pectoris; G47.33 Obstructive sleep apnea (adult) (pediatric); Z99.89 Dependence on other enabling machines and devices; Z79.899 Other long term (current) drug therapy; Z79.52 Long term (current) use of systemic steroids
CPT/HCPCS: 36415; 36416; 71045; 71275; 74176; 80053; 80061; 81003; 82436; 82962; 83036; 83540; 83550; 83690; 83735; 83880; 84100; 84133; 84145; 84300; 84443; 84484; 85025; 87449; 87631; 87635; 87641; 93005; 93970; 94660; 94664; 96372; 99285; C8929; J0360; J1815; J1940; J2405; Q9956; Q9967

== ENCOUNTER → 2021-09-27 13:03 | Outpatient (BNVA) | payer MEDICARE, MEDICAID, SELFPAY | PROVIDERS: PCP Nurse Practitioner Family; Visit Provider Nurse Practitioner Family | DX: I50.32 Chronic diastolic (congestive) heart failure (principal); I48.91 Unspecified atrial fibrillation | CPT/HCPCS: 99214 ==

== ENCOUNTER → 2021-10-11 13:41 | Outpatient (BNVA) | payer MEDICARE, MEDICAID, SELFPAY | PROVIDERS: PCP Nurse Practitioner Family; Visit Provider Internal Medicine | DX: E11.65 Type 2 diabetes mellitus with hyperglycemia (principal); E11.42 Type 2 diabetes mellitus with diabetic polyneuropathy; E11.22 Type 2 diabetes mellitus with diabetic chronic kidney disease; E04.1 Nontoxic single thyroid nodule; E78.5 Hyperlipidemia, unspecified; E55.9 Vitamin D deficiency, unspecified; E66.01 Morbid (severe) obesity due to excess calories; Z68.44 Body mass index [BMI] 60.0-69.9, adult; Z79.4 Long term (current) use of insulin; N18.30 Chronic kidney disease, stage 3 unspecified | CPT/HCPCS: 99214 ==

== ENCOUNTER → 2021-10-24 13:31 | Outpatient (BNVA) | payer MEDICARE, MEDICAID, SELFPAY | PROVIDERS: PCP Nurse Practitioner Family; Visit Provider Internal Medicine | DX: I50.32 Chronic diastolic (congestive) heart failure (principal); I48.91 Unspecified atrial fibrillation | CPT/HCPCS: 99214 ==

== ENCOUNTER → 2021-11-01 13:27 | Outpatient (BNVA) | payer MEDICARE, MEDICAID, SELFPAY | PROVIDERS: PCP Nurse Practitioner Family; Visit Provider Podiatrist Foot & Ankle Surgery | DX: E11.42 Type 2 diabetes mellitus with diabetic polyneuropathy (principal); L60.3 Nail dystrophy; I73.9 Peripheral vascular disease, unspecified; M20.21 Hallux rigidus, right foot; M20.22 Hallux rigidus, left foot; B35.3 Tinea pedis; M20.41 Other hammer toe(s) (acquired), right foot; M20.42 Other hammer toe(s) (acquired), left foot; M21.41 Flat foot [pes planus] (acquired), right foot; M21.42 Flat foot [pes planus] (acquired), left foot | CPT/HCPCS: 11721 ==

== ENCOUNTER → 2021-11-30 10:46 | Outpatient (BNVA) | payer MEDICARE, MEDICAID, SELFPAY | PROVIDERS: PCP Nurse Practitioner Family; Visit Provider Otolaryngology | DX: H93.13 Tinnitus, bilateral (principal); N18.2 Chronic kidney disease, stage 2 (mild); Z68.42 Body mass index [BMI] 45.0-49.9, adult; E04.1 Nontoxic single thyroid nodule; E04.9 Nontoxic goiter, unspecified; K13.79 Other lesions of oral mucosa; I48.91 Unspecified atrial fibrillation; I50.32 Chronic diastolic (congestive) heart failure; E66.01 Morbid (severe) obesity due to excess calories | CPT/HCPCS: 99214 ==

== ENCOUNTER 2021-12-02 09:08 | Outpatient (CLI) | payer MEDICARE, MEDICAID, SELFPAY ==
[2021-12-02 09:45] LABS: Basophils % 0.4 %; Eosinophils # 0.1 10^3/uL (0.0-0.8); Eosinophils % 0.7 %; Hematocrit 35.6 % (42.0-52.0); Hemoglobin 11.2 g/dL (11.7-16.6); Lymphocytes # 1.6 10^3/uL (0.8-4.8); Lymphocytes % 16.7 %; Mean Corpuscular HGB Conc 31.5 g/dL (30.0-36.0); Mean Corpuscular Hemoglobin 24.8 pg (28.0-34.0); Mean Corpuscular Volume 78.8 fl (80-94); Mean Platelet Volume 9.9 fL (7.4-10.4); Monocytes # 0.7 10^3/uL (0.2-0.9); Monocytes % 7.2 %; Neutrophils # 7.01 10^3/uL (1.8-7.7); Neutrophils % 74.5 %; Nucleated Red Blood Cells % 0 %; Platelet Count 223 10^3/cmm (130-400); Red Blood Count 4.52 10^6/uL (4.1-5.3); Red Cell Distribution Width 15.4 % (12.1-15.1); White Blood Count 9.4 10^3/uL (4.0-10.0)
[2021-12-02 10:21] LABS: Alanine Aminotransferase 23 U/L (0-41); Albumin Level 4.3 g/dL (3.5-5.2); Alkaline Phosphatase 73 IU/L (40-130); Aspartate Amino Transferase 30 U/L (0-40); C Reactive Protein 36.4 mg/L (0.0-4.9); Globulin 2.5 g/dL (1.3-4.6); Glomerular Filtration Rate 55.2 mL/min (90-130); Total Bilirubin 0.2 mg/dL (0.15-1.2); Total Protein 6.8 g/dL (6.6-8.7)
== END 2021-12-02 09:09 | disposition home or self-care (01) ==
LOC: LAB 09:13
PROVIDERS: PCP Nurse Practitioner Family; Visit Provider Internal Medicine Rheumatology
DX: M06.00 Rheumatoid arthritis without rheumatoid factor, unspecified site (principal); Z79.899 Other long term (current) drug therapy
CPT/HCPCS: 36415; 80076; 82565; 85025; 86140

== ENCOUNTER → 2021-12-07 08:39 | Outpatient (BNVA) | payer MEDICARE, MEDICAID, SELFPAY | PROVIDERS: PCP Nurse Practitioner Family; Visit Provider Internal Medicine Rheumatology | DX: N18.30 Chronic kidney disease, stage 3 unspecified (principal); Z79.899 Other long term (current) drug therapy; E66.9 Obesity, unspecified; D64.9 Anemia, unspecified; I48.91 Unspecified atrial fibrillation; Z68.43 Body mass index [BMI] 50.0-59.9, adult; M06.00 Rheumatoid arthritis without rheumatoid factor, unspecified site; M1A.3790 Chronic gout due to renal impairment, unspecified ankle and foot, without tophus (tophi); E11.22 Type 2 diabetes mellitus with diabetic chronic kidney disease; M75.52 Bursitis of left shoulder | CPT/HCPCS: 99214 ==

== ENCOUNTER 2021-12-29 08:45 | Outpatient (CLI) | payer MEDICARE, MEDICAID, SELFPAY ==
--- NOTE | 2021-12-29 09:15 | US_ITS ---
WS: [id number] THYROID ULTRASOUND HISTORY: thyroid nodule COMPARISON: 05/20/2020 Right lobe: 2.7 cm x 3.6 cm x 5.0 cm (w x ap x l). Volume: 25.3 cm3. Markedly enlarged heterogeneous thyroid. The entire lobe is enlarged and heterogeneous without a disc rete nodule. Similar to prior studies. Left lobe: 3.1 cm x 3.6 cm x 4.7 cm (w x ap x l). Volume: 26.4 cm3. Enlarged heterogeneous nodular thyroid without acute focal performed nodule. Isthmus: 0.4 cm. US/US thyroid [id number] IMPRESSION: 1. Enlarged heterogeneous thyroid without a well-formed discrete nodule. Thyro id has increased in size as compared to 05/20/2020. 2. No increased vascularity identified. No adenopathy.
== END 2021-12-29 08:46 | disposition home or self-care (01) ==
LOC: RAD 08:48
PROVIDERS: PCP Nurse Practitioner Family; Visit Provider Otolaryngology
DX: E04.1 Nontoxic single thyroid nodule (principal)
CPT/HCPCS: 76536

== ENCOUNTER 2022-01-04 18:25 | Inpatient (IN) | payer MEDICARE, MEDICAID, SELFPAY ==
[2022-01-04] VITALS (9 sets, daily range): BP systolic 130–153; BP diastolic 54–78; PULSE 56–93; RESP 18–26; TEMP 36.2–36.9; O2SAT 94–99; BMI 57.5
--- NOTE | 2022-01-04 18:28 | XRR_ITS ---
PROCEDURE INFORMATION: Exam: XR Chest Exam date and time: 01/04/2022 6:33 PM Age: 66 years old Clinical indication: Dyspnea TECHNIQUE: Imaging protocol: Radiologic exam of the chest. Views: 1 view. COMPARISON: CR XR chest 1V portable [id number] 09/10/2021 10:28 AM FINDINGS: Lungs: Left hemidiaphragm is somewhat obscured which may relate to some atelectasis. Pleural spaces: Unremarkable. No pleural effusion. No pneumothorax. Heart/Mediastinum: No evident mediastinal shift. Heart size is unchanged. Bones/joints: No acute findings. XR/XR chest 1V portable [id number] IMPRESSION: Left hemidiaphragm is somewhat obscured which may relate to some atelectasis.
--- NOTE | 2022-01-04 18:32 | ED_ITS ---
HPI - General Adult General: Chief complaint: Shortness of Breath/Dyspnea Stated complaint: sob, covid positive Time Seen by Provider: 01/04/22 18:28 History of Present Illness: Patient is a 66-year-old male with history of CHF, diabetes, CKD hypertension who presents to the emergency room with concerns of cough, sore throat, generalized weakness, body aches and positive COVID test. Patient tells me that he was diagnosed with COVID 4 days ago without home test. Patient daughter was sick at home with similar symptoms. Because of persistence of symptoms, patient went to see his primary care provider at which point time, patient was prescribed Paxlovid. Patient was taking the non-renally dosed Paxlovid. She has been taking 3 doses so far and reports chest pressure, body aches, and anxiety, lightheadedness shortly after taking the medicine. Patient has been able to produce urine without difficulty. Patient denies any diarrhea melena or hematochezia. Patient has no complaints or abdominal pain. Onset: 4 days ago Duration:4 days Location:home Severity:moderate Associated symptoms: Reports chest pain, dyspnea and malaise; Deny nausea, rash, palpitations or vomiting Review of Systems Const: Reports: chills, body aches, fatigue, malaise and other (+fatigue); Denies: fever(s) Eyes: Denies: change in vision ENMT: Denies: mouth pain Card: Reports: chest pain; Denies: palpitations Resp: Reports: dyspnea and non-productive cough GI: Denies: abdominal pain, nausea, vomiting or diarrhea : Denies: dysuria Musc: Denies: extremity pain Skin/Breast: Denies: rash or new lesions Neuro: Denies: weakness in extremities Psych: Reports: other (Normal mood) Naoh/Lymph: Denies: easy bruising PFSH ED PFSH: Medical History Anemia Atrial fibrillation on anticoagulation Carpal tunnel syndrome Chest pain Patient underwent coronary angiogram which was normal CKD (chronic kidney disease) stage 3, GFR 30-59 ml/min Congestive heart failure Diastolic heart failure Diverticulosis Dyspnea GERD (gastroesophageal reflux disease) Gout Hyperlipidemia Morbid obesity with BMI of 60.0-69.9, adult Neuropathy LINDA on CPAP Osteoarthritis Otalgia Rectal bleeding Rectal polyp Renal insufficiency Improved after IV fluid Rheumatoid arthritis In remission 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 Uncontrolled type 2 diabetes mellitus Ventral incisional hernia Vitamin D deficiency Surgical History History of colonoscopy History of esophagogastroduodenoscopy (EGD) S/P appendectomy S/P carpal tunnel release 2x left S/P cervical disc replacement S/P hernia repair S/P skin cancer resection S/P thyroid surgery S/P tonsillectomy S/P trigger finger release Family History Father Cancer Prostate Hypertension Hypercholesterolemia Heart disease Mother Hypertension Hypercholesterolemia Anesthesia complication Daughter Anesthesia complication Denies family history of Bleeding disorder Social History Smoking and tobacco status: never smoked Alcohol intake: former Lives independently: Yes Household members: spouse Marital status: Current occupational status: disabled History of recent travel: No Alexandra/Mosque: Voodoo Special alexandra needs: Yes Agree to transfusion: No Physical Exam Const: COMMON NORMALS: alert HENMT: COMMON NORMALS: atraumatic HEAD & SCALP: atraumatic MOUTH: moist mucous membranes not abnormal Eye: COMMON NORMALS: EOMs intact bilaterally and conjunctivae normal CONJUNCTIVA: Yes conjunctivae normal Neck/C-Spine: COMMON NORMALS: full ROM and supple Resp: COMMON NORMALS: normal respiratory effort and clear to auscultation bilaterally AUSCULTATION: clear to auscultation bilaterally Cardio: COMMON NORMALS: regular rate RATE: regular rate GI: COMMON NORMALS: Soft to palpation and non-tender PALPATION: Yes Soft to palpation OTHER: No focal TTP. NO guarding rebound, guarding, rigidity. No CVA tenderness to percussion. Neg Soria/Neg McBurney's point tenderness, no suprabupic tenderness to palpation. Extremity: COMMON NORMALS: full ROM Neuro: SENSORIUM/ORIENTATION: Yes alert MOTOR EXAM: No Abnormal motor strength present and Other motor observations present (no focal motor deficits) Psych: COMMON NORMALS: speech normal SPEECH: Yes normal speech MOOD & AFFECT: Yes euthymic mood Course Vital Signs: Vital signs: Vital Signs Temperature 98.5 F 01/04/22 19:54 Pulse Rate 56 L 01/04/22 19:38 Respiratory Rate 22 H 01/04/22 19:54 Blood Pressure 139/66 01/04/22 19:54 Pulse Oximetry 94 01/04/22 19:54 Oxygen Delivery Me thod 01/04/22 19:54 Oxygen Flow Rate 2 01/04/22 18:27 [facility] - General Adult Medical Decision Making Patient is a 66-year-old male with history of CHF, diabetes, CKD hypertension wh o presents to the emergency room with concerns of cough, sore throat, generalized weakness, body aches and positive COVID test. On physical exam, patient appears to be dry. Rest of exam unremarkable. Patient has a hemoglobin 9.9. Sodium 130. Creatinine of 2.1 up from baseline 1.3-1.4. Given the fact the patient was taking nonrenally dose paxlovid and there is new acute on chronic kidney injury, patient was admitted to the hospital for further evaluation of dehydration from covid vs drug-induced nephrotoxicity. Disposition: admission Lab Data : 01/04/22 19:04 01/04/22 19:04 Radiology Impressions Chest X-Ray 01/04/22 18:28 IMPRESSION: Left hemidiaphragm is somewhat obscured which may relate to some atelectasis. Laboratory Results WBC 5.1 10^3/uL (4.0-10.0) 01/04/22 19:04 RBC 3.97 10^6/uL (4.1-5.3) L 01/04/22 19:04 Hgb 9.9 g/dL (11.7-16.6) L 01/04/22 19:04 Hct 32.3 % (42.0-52.0) L 01/04/22 19:04 MCV 81.4 fl (80-94) 01/04/22 19:04 MCH 24.9 pg (28.0-34.0) L 01/04/22 19:04 MCHC 30.7 g/dL (30.0-36.0) 01/04/22 19:04 RDW 15.6 % (12.1-15.1) H 01/04/22 19:04 Plt Count 177 10^3/cmm (130-400) 01/04/22 19:04 MPV 10.2 fL (7.4-10.4) 01/04/22 19:04 Neut % (Auto) 66.6 % 01/04/22 19:04 Lymph % (Auto) 19.6 % 01/04/22 19:04 Mccreary % (Auto) 12.6 % 01/04/22 19:04 Eos % (Auto) 0.0 % 01/04/22 19:04 Baso % (Auto) 0.4 % 01/04/22 19:04 Neut # (Auto) 3.39 10^3/uL (1.8-7.7) 01/04/22 19:04 Lymph # (Auto) 1.0 10^3/uL (0.8-4.8) 01/04/22 19:04 Mccreary # (Auto) 0.6 10^3/uL (0.2-0.9) 01/04/22 19:04 Eos # (Auto) 0.0 10^3/uL (0.0-0.8) 01/04/22 19:04 Baso # (Auto) 0.0 10^3/uL (0.0-0.1) 01/04/22 19:04 Nucleated RBC % (auto) 0 % 01/04/22 19:04 Nucleated RBCs # 0.0 /100WBC 01/04/22 19:04 Sodium 130 mmol/L (136-145) L 01/04/22 19:04 Potassium 4.7 mmol/L (3.5-5.1) 01/04/22 19:04 Chloride 91 mmol/L (98-107) L 01/04/22 19:04 Carbon Dioxide 26 mmol/L (22-29) 01/04/22 19:04 Anion Gap 17.7 (5-19) 01/04/22 19:04 BUN 25 mg/dL (8-23) H 01/04/22 19:04 Creatinine 2.1 mg/dL (0.7-1.2) H 01/04/22 19:04 GFR Calculation 31.8 mL/min (90-130) L 01/04/22 19:04 Glucose 486 mg/dL (65-115) H 01/04/22 19:04 Calculated Osmolality 296 mOsm/kg (285-295) H 01/04/22 19:04 Calcium 8.8 mg/dL (8.5-10.5) 01/04/22 19:04 Troponin T Baseline 14 ng/L (0-15) 01/04/22 19:04 C-Reactive Protein 27.7 mg/L (0.0-4.9) H 01/04/22 19:04 NT-Pro-B Natriuret Pep 575 pg/mL (0-125) H 01/04/22 19:04 Procalcitonin 0.20 ng/mL (0-0.5) 01/04/22 19:04 Imaging Data Other Imaging: Radiologist's impression: [id number] [address] XRay Report Signed Patient: Mauro Solis Unit #: [id number] : 1955 Age/Sex: 66 / M ADM Date: 01/04/22 Loc: ER Room/Bed: Attending Dr: Ordering Provider/Ordering MD: Robin Cole MD Date of Service: 01/04/22 Procedure(s): XR chest 1V portable [id number] Accession Number(s): [id number] Report Number: [id number] PROCEDURE INFORMATION: Exam: XR Chest Exam date and time: 01/04/2022 6:33 PM Age: 66 years old Clinical indication: Dyspnea TECHNIQUE: Imaging protocol: Radiologic exam of the chest. Views: 1 view. COMPARISON: CR XR chest 1V portable [id number] 09/10/2021 10:28 AM FINDINGS: Lungs: Left hemidiaphragm is somewhat obscured which may relate to some atelectasis. Pleural spaces: Unremarkable. No pleural effusion. No pneumothorax. Heart/Mediastinum: No evident mediastinal shift. Heart size is unchanged. Bones/joints: No acute findings. XR/XR chest 1V portable [id number] IMPRESSION: Left hemidiaphragm is somewhat obscured which may relate to some atelectasis. ? Dictated By: Mina Fernandez MD Signed By: Mina Fernandez MD Signed Date/Time: 01/04/221916 DD/ 32 Discharge Plan Discharge Patient Disposition: Admitted As Inpatient Clinical Impression: Acute kidney injury superimposed on CKD, Dehydration, COVID Condition: Stable Coding Level of Care Code ED Division Director for g Fwd Exam Comprehensive
--- NOTE | 2022-01-04 19:04 | PC.NURSE ---
pt reports dyspnea and chest pressure worsening today. tested positive for covid 01/01/22. pt reports he was started on medications for Covid and his symptoms has worsened since. Pt arrived via EMS, tachypnic. speech clear, speaking in complete sentences without difficulty. rounded abdomen.
--- NOTE | 2022-01-04 19:06 | PC.NURSE ---
report given to Leanne
--- NOTE | 2022-01-04 19:12 | ECG_ITS ---
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 Measurements Intervals [place] Rate: 51 P: [place]: QRS: -39 QRSD: 112 T: 35 QT: 422 QTc: 389 Interpretive Statements SUPRAVENTRICULAR BRADYCARDIA LEFT AXIS DEVIATION [QRS AXIS < -30] LOW QRS VOLTAGE IN PRECORDIAL LEADS INCOMPLETE RIGHT BUNDLE BRANCH BLOCK Compared to ECG 09/10/2021 14:19:01 Left-axis deviation now present Low QRS voltage now present Sinus rhythm no longer present T-wave abnormality no longer present Electronically Signed On 01-05-2022 6:04:46 CDT by Funmilayo Brown M.D. [id number]
[2022-01-04 19:19] LABS: Basophils % 0.4 %; Hematocrit 32.3 % (42.0-52.0); Hemoglobin 9.9 g/dL (11.7-16.6); Lymphocytes % 19.6 %; Mean Corpuscular HGB Conc 30.7 g/dL (30.0-36.0); Mean Corpuscular Hemoglobin 24.9 pg (28.0-34.0); Mean Corpuscular Volume 81.4 fl (80-94); Mean Platelet Volume 10.2 fL (7.4-10.4); Monocytes # 0.6 10^3/uL (0.2-0.9); Monocytes % 12.6 %; Neutrophils # 3.39 10^3/uL (1.8-7.7); Neutrophils % 66.6 %; Nucleated Red Blood Cells % 0 %; Platelet Count 177 10^3/cmm (130-400); Red Blood Count 3.97 10^6/uL (4.1-5.3); Red Cell Distribution Width 15.6 % (12.1-15.1); White Blood Count 5.1 10^3/uL (4.0-10.0)
--- NOTE | 2022-01-04 19:38 | PC.NURSE ---
Report from KATLIN Tejada. Pt sitting up in bed. EKG performed. No further needs at this time.
[2022-01-04 19:49] LABS: Troponin(5th) Baseline 14 ng/L (0-15)
[2022-01-04] MEDS: acetaminophen 500 mg Tablet PO (19:50)
[2022-01-04] MEDS: sodium chloride 0.9% 500 ML IV (19:51)
--- NOTE | 2022-01-04 19:54 | PC.NURSE ---
Pt noted to be wheezing. MD notified. Spo2 is still good on room air. RT notified for updraft.
[2022-01-04 19:56] LABS: NT Pro B Type Natriuretic Pept 575 pg/mL (0-125)
[2022-01-04 20:07] LABS: Anion Gap 17.7 (5-19); Blood Urea Nitrogen 25 mg/dL (8-23); C Reactive Protein 27.7 mg/L (0.0-4.9); Calcium 8.8 mg/dL (8.5-10.5); Carbon Dioxide 26 mmol/L (22-29); Chloride 91 mmol/L (98-107); Glomerular Filtration Rate 31.8 mL/min (90-130); Glucose 486 mg/dL (65-115); Osmolality Calculated 296 mOsm/kg (285-295); Potassium 4.7 mmol/L (3.5-5.1); Sodium 130 mmol/L (136-145)
--- NOTE | 2022-01-04 20:47 | PM.HP ---
Providers/Chief Complaint Primary Care Provider: Lilian Mcintyre Chief Complaint: sob, covid positive History of Present Illness Mauro Solis is a 66 year old male with history of CHF, A. fib, diabetes, chronic kidney diseaseIIIb, who history positive for COVID-19 4 days ago with home testing kit, his daughter was sick with similar symptoms, patient went to see primary care physician who prescribed Paxil with he has been taking 300/100 dosing which is not renally dosed, he has started noticing worsening of shortness of breath and skin rash of his feet bilaterally. 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 At this point he is not requiring oxygen, he suffered from an episode of emesis on Sunday and then a couple on Sunday nothing since last 48 hours he is not experiencing diarrhea. He is compliant with his medications including Bumex 2 mg daily. He presented to the hospital for worsening of his shortness of breath, orthopnea, PND audible wheezing Acute on chronic kidney disease creatinine 2.1 baseline seems to be around 1.3-1.5 Hyperglycemia Patient is not acidotic BNP 575 Procalcitonin unremarkable Currently on room air Afebrile A. fib heart rate in low 50s His main concern that brought him to the hospital were bradycardia, wheezing, shortness of breath, because of excessive coughing he is also noticing some soreness in his chest which he is describing as some heaviness, no active chest pain at the time of my evaluation Review of Systems Const: Reports: chills, body aches and fatigue Eyes: Denies: change in vision ENMT: Denies: throat pain Card: Reports: chest pain, swelling of feet/ankles, dyspnea on exertion and orthopnea Resp: Reports: dyspnea GI: Reports: nausea : Denies: flank pain Musc: Denies: neck pain Skin/Breast: Reports: rash, erythema and lesions Neuro: Denies: headache(s) Psych: Reports: anxiety Endo: Denies: polyuria Noah/Lymph: Denies: easy bruising All/Imm: Denies: urticaria Medications/Allergies Home Medications Medication Instructions Recorded Confirmed Last Taken Type acyclovir 5 % topical ointment See Rx Instructions .Route .COMPLEX 05/22/19 11/30/21 Unknown History ergocalciferol (vitamin D2) 1,250 50,000 unit PO Q30D 05/22/19 11/30/21 06/07/21 History mcg (50,000 unit) capsule fenofibrate nanocrystallized 145 145 mg PO DAILY 05/22/19 12/07/21 09/09/21 History mg tablet diclofenac sodium 1 % topical gel See Rx Instructions .Route 06/19/19 11/30/21 Unknown History .COMPLEX PRN Pain, Mild blood-glucose meter (Accu-Chek #1 ea 01/21/20 11/30/21 Unknown Rx Guide Glucose Meter) Diabetic shoes with inserts #1 ea 02/04/20 11/30/21 Unknown Rx lancets (Accu-Chek Fastclix Lancet #200 ea 03/04/20 12/07/21 Unknown Rx Drum) ketoconazole 2 % topical cream See Rx Instructions .Route 07/13/20 11/30/21 04/06/21 Rx .COMPLEX #60 grams Diabetic shoes with molded inserts #1 ea 09/14/20 11/30/21 Unknown Rx prednisone 10 mg tablet See Rx Instructions PO .COMPLEX 09/20/20 12/07/21 Unknown Rx PRN gout pain flare #30 tabs blood sugar diagnostic (Accu-Chek #300 ea 03/09/21 11/30/21 Unknown Rx Guide test strips) pen needle, diabetic 31 gauge x #100 ea 03/18/21 11/30/21 Unknown Rx 1/4 ezetimibe 10 mg tablet 10 mg PO DAILY #90 tabs 03/28/21 12/07/21 09/09/21 Rx pen needle, diabetic 32 gauge x #100 ea 03/28/21 11/30/21 Unknown Rx (BD Gabriella 2nd Gen Pen Needle) triamcinolone acetonide 0.1 % 1 applic topical BID PRN joint 04/11/21 11/30/21 Unknown History topical cream inflamation acetaminophen 500 mg tablet 1,000 mg PO Q6H PRN Pain 04/21/21 12/07/21 Unknown History (Tylenol Extra Strength) rivaroxaban 20 mg tablet 20 mg PO DAILY #90 tabs 04/21/21 12/07/21 09/10/21 Rx verapamil 240 mg tablet,extended 240 mg PO DAILY #90 tabs 06/20/21 12/07/21 09/10/21 Rx release potassium chloride 20 mEq 20 meq PO DAILY 06/28/21 11/30/21 09/10/21 History tablet,extended release mupirocin 2 % topical ointment 1 applic topical BID 07/06/21 12/07/21 09/10/21 History ropinirole 0.25 mg tablet 0.25 mg PO BEDTIME 07/06/21 12/07/21 09/09/21 History dulaglutide 0.75 mg/0.5 mL 3 mg SUBCUT Q7D 07/08/21 12/07/21 09/09/21 History subcutaneous pen injector (Trulicity) spironolactone 25 mg tablet 12.5 mg PO DAILY #45 tabs 07/18/21 12/07/21 09/09/21 Rx isosorbide mononitrate 30 mg 60 mg PO BID 30 days #180 tabs 09/13/21 12/07/21 Unknown Rx tablet,extended release 24 hr gabapentin 300 mg capsule 300 mg PO TID 09/27/21 12/07/21 Unknown History ondansetron HCl 4 mg tablet 4 mg PO Q6H 09/27/21 11/30/21 Unknown History psyllium (Natural Vegetable 1 tbsp PO DAILY 09/27/21 11/30/21 Unknown History (psyllium)) flash glucose scanning reader #1 ea 10/24/21 11/30/21 Unknown Rx (FreeStyle Huma 2 [place]) flash glucose sensor (FreeStyle #6 ea 10/24/21 11/30/21 Unknown Rx Huma 2 Sensor) metoprolol tartrate 50 mg tablet 100 mg PO BID #360 tabs 10/31/21 12/07/21 Unknown Rx Diabetic shoes with 3 pairs of #1 ea 11/01/21 11/30/21 Unknown Rx inserts nitroglycerin 0.4 mg sublingual 0.4 mg sublingual DIRECTED 11/09/21 12/07/21 Unknown Rx tablet (Nitrostat) CHEST PAIN 30 days #25 tabs pantoprazole 40 mg tablet,delayed 40 mg PO BID #180 tabs 11/09/21 12/07/21 Unknown Rx release allopurinol 100 mg tablet 200 mg PO BEDTIME #60 tabs 11/15/21 12/07/21 Unknown Rx bumetanide 2 mg tablet See Rx Instructions PO DAILY #90 11/16/21 12/07/21 Unknown Rx tabs tramadol 50 mg tablet 50 mg PO TID PRN pain #30 tabs 12/07/21 12/07/21 Unknown Rx Allergies Allergy/AdvReac Type Severity Reaction Status Date / Time empagliflozin Allergy Severe difficult Verified 11/30/21 11:10 [From Jardiance] breathing linaclotide [From Linzess] Allergy Unknown Hypertension; Verified 11/30/21 11:10 Afib metformin Allergy Unknown ADR-Diarrhe Verified 11/30/21 11:10 a naproxen Allergy Unknown Affects Verified 11/30/21 11:10 kidney fuctions Apuhrxr-OFC-AgS Reductase Allergy Unknown Severe Verified 11/30/21 11:10 Inhibitor Muscle Pain [Mugtbzx-Doa-Svr Reductase Inhibitor] Sulfa (Sulfonamide Allergy Unknown ADR-Itching Verified 11/30/21 11:10 Antibiotics) baclofen Allergy Affects Verified 11/30/21 11:10 kidney fuctions NSAIDS (Non-Steroidal Allergy Affects Verified 11/30/21 11:10 Anti-Inflamma Kidney functions tramadol AdvReac Intermediate aggression Verified 11/30/21 11:10 PFSH Acute PFSH: Medical History Anemia Atrial fibrillation on anticoagulation Carpal tunnel syndrome Chest pain Patient underwent coronary angiogram which was normal CKD (chronic kidney disease) stage 3, GFR 30-59 ml/min Congestive heart failure Diastolic heart failure Diverticulosis Dyspnea GERD (gastroesophageal reflux disease) Gout Hyperlipidemia Morbid obesity with BMI of 60.0-69.9, adult Neuropathy LINDA on CPAP Osteoarthritis Otalgia Rectal bleeding Rectal polyp Renal insufficiency Improved after IV fluid Rheumatoid arthritis In remission 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 Uncontrolled type 2 diabetes mellitus Ventral incisional hernia Vitamin D deficiency Surgical History History of colonoscopy History of esophagogastroduodenoscopy (EGD) S/P appendectomy S/P carpal tunnel release 2x left S/P cervical disc replacement S/P hernia repair S/P skin cancer resection S/P thyroid surgery S/P tonsillectomy S/P trigger finger release Family History Father Cancer Prostate Hypertension Hypercholesterolemia Heart disease Mother Hypertension Hypercholesterolemia Anesthesia complication Daughter Anesthesia complication Denies family history of Bleeding disorder Social History Smoking and tobacco status: never smoked Alcohol intake: former Lives independently: Yes Household members: spouse Marital status: Current occupational status: disabled History of recent travel: No Alexandra/Orthodox: Episcopal Special alexandra needs: Yes Agree to transfusion: No Vitals/I&O/Wt Last Vital Signs Temp 98.5 F 01/04/22 19:54 Pulse 56 L 01/04/22 19:38 Resp 22 H 01/04/22 19:54 BP 139/66 01/04/22 19:54 Pulse Ox 94 01/04/22 19:54 O2 Del Method 01/04/22 19:54 O2 Flow Rate 2 01/04/22 18:27 Weight last 48 hrs Weight 181.891 kg Physical Exam Narrative: Pleasant elderly male Morbid obese Currently on room air Cardiac wheezing CHF exacerbation Clinical time fluid overload Erythema of foot bilaterally Mild skin sloughing No active signs cellulitis Ankle edema pedal edema 2+ Currently on room air Awake and alert Audible wheezing Daughter at the bedside Appropriate mood and affect Nonfocal neuro exam Data : 01/04/22 19:04 01/04/22 19:04 A&P Assessment and plan (1) Acute kidney injury superimposed on CKD: Status: Acute (2) COVID: Status: Acute (3) Hypertrophy of uvula: Status: Acute (4) Atrial fibrillation: Status: Acute (5) Diastolic heart failure: Status: Acute Qualifiers: Heart failure chronicity: chronic Qualified Code(s): I50.32 - Chronic diastolic (congestive) heart failure (6) External hemorrhoids with complication: Status: Resolved (7) Anemia: Status: Acute (8) Morbid obesity: Status: Acute (9) Diabetic neuropathy: Status: Acute Qualifiers: Diabetes mellitus type: type 2 Diabetes mellitus complication detail: diabetic polyneuropathy Qualified Code(s): E11.42 - Type 2 diabetes mellitus with diabetic polyneuropathy (10) Stage 3 chronic kidney disease due to diabetes mellitus: Status: Acute (11) COVID-19: Status: Acute Plan COVID-19 Diagnosed on Sunday with home kit Took 3-4 dose of Paxil with Past which was not renally dosed he was taking 300?100 Secondary to chronic kidney disease stage IIIb it should have been 150s/50 Currently not requiring oxygen Does use CPAP at night To decrease work of breathing due to active cardiac wheezing and CHF exacerbation I would use BiPAP tonight I would refrain from adding Decadron or remdesivir at this point Acute on chronic kidney disease stage IIIb Secondary to nephrotoxic agents PACs evident spironolactone Clinical signs of fluid overload Diastolic CHF exacerbation We will give him Bumex 2 mg IV push for now and increase the dose to 2 mg twice daily at home he takes 2 mg p.o. daily Clinical signs of fluid overload I would not repeat echo it was done recently see EF 64% Full code patient wants a trial of chest compression defibrillation and intubation however in case of prolonged code more than 15 minutes he does not want to be hooked up with the machine for prolonged period of time in vegetative state Cardiac diet/renal diet Continue rivaroxaban however I will reduce the dose Attestations Medical Necessity Statement*: Anticipating discharge within 48 hours will need management of CHF exacerbation and COVID-19 Time Spent in Patient Care: 45 Coding Level of Care Code Acute Gynaecological Oncologist for g Fwd Diagnoses Acute kidney injury superimposed on CKD N17.9; N18.9 COVID U07.1 Hypertrophy of uvula K13.79 Atrial fibrillation I48.91 Diastolic heart failure I50.32 Heart failure chronicity: chronic External hemorrhoids with complication K64.4 Anemia D64.9 Morbid obesity E66.01 Diabetic neuropathy E11.42 Diabetes mellitus type: type 2 Diabetes mellitus complication detail: diabetic polyneuropathy Stage 3 chronic kidney disease due to diabetes mellitus E11.22; N18.3 COVID-19 U07.1
[2022-01-04 21:37] LABS: Estmated Average Glucose 246; Hemoglobin A1C 10.2 % (4.0-6.0)
[2022-01-04] MEDS: ipratropium-albuterol 3 mL Neb INHALATION ×3 (21:38)
[2022-01-04] MEDS: bumetanide 0.25 mg/mL SDV 10 mL 2 MG IVP (21:56)
[2022-01-04 21:58] LABS: Troponin 5 2HR 15.59 ng/L (0-15); Troponin 5 2HR Delta 1.59 ABS# (0-10)
--- NOTE | 2022-01-04 22:14 | ECG_ITS ---
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 Measurements Intervals [place] Rate: 70 P: [place]: QRS: -39 QRSD: 134 T: 60 QT: 327 QTc: 354 Interpretive Statements ATRIAL FIBRILLATION WITH ABERRANT CONDUCTION OR VENTRICULAR PREMATURE COMPLEXES LEFT AXIS DEVIATION [QRS AXIS < -30] INTRAVENTRICULAR CONDUCTION DELAY [130+ ms QRS DURATION] Compared to ECG 01/04/2022 19:12:29 Ventricular premature complex(es) now present Aberrant conduction of supraventricular beat(s) now present Intraventricular conduction delay now present Incomplete right bundle-branch block no longer present Electronically Signed On 01-06-2022 15:41:11 CDT by Robb Banegas M.D. [id number]
--- NOTE | 2022-01-04 22:28 | PC.NURSE ---
Assisted pt to bedside commode to urinate. Assisted pt back to bed.
[2022-01-05] VITALS (13 sets, daily range): BP systolic 130–142; BP diastolic 68–86; PULSE 76–104; RESP 15–26; TEMP 36.8; O2SAT 89–99; BMI 57.5
[2022-01-05] MEDS: morphine IR 15 mg Tablet PO (01:04)
[2022-01-05] MEDS: allopurinol 100 mg Tablet 200 MG PO ×2 (01:04→21:08)
[2022-01-05] MEDS: insulin glargine 100 units/1 mL 5 UNIT SUBCUT (02:02)
[2022-01-05 03:11] LABS: Basophils % 0.2 %; Eosinophils % 0.2 %; Hematocrit 32.2 % (42.0-52.0); Hemoglobin 9.7 g/dL (11.7-16.6); Lymphocytes # 1.5 10^3/uL (0.8-4.8); Lymphocytes % 29.2 %; Mean Corpuscular HGB Conc 30.1 g/dL (30.0-36.0); Mean Corpuscular Hemoglobin 24.2 pg (28.0-34.0); Mean Corpuscular Volume 80.3 fl (80-94); Mean Platelet Volume 10.1 fL (7.4-10.4); Monocytes # 0.6 10^3/uL (0.2-0.9); Monocytes % 12.1 %; Neutrophils # 2.91 10^3/uL (1.8-7.7); Neutrophils % 57.7 %; Nucleated Red Blood Cells % 0 %; Platelet Count 168 10^3/cmm (130-400); Red Blood Count 4.01 10^6/uL (4.1-5.3); Red Cell Distribution Width 15.4 % (12.1-15.1)
[2022-01-05 03:43] LABS: Alanine Aminotransferase 52 U/L (0-41); Albumin Level 3.6 g/dL (3.5-5.2); Alkaline Phosphatase 60 U/L (40-130); Anion Gap 13.6 (5-19); Aspartate Amino Transferase 52 U/L (0-40); Blood Urea Nitrogen 22 mg/dL (8-23); C Reactive Protein 25.9 mg/L (0.0-4.9); Calcium 9.3 mg/dL (8.5-10.5); Carbon Dioxide 31 mmol/L (22-29); Chloride 92 mmol/L (98-107); Globulin 2.6 g/dL (1.3-4.6); Glomerular Filtration Rate 37.9 mL/min (90-130); Glucose 192 mg/dL (65-115); Magnesium 1.9 mg/dL (1.7-2.3); Osmolality Calculated 285 mOsm/kg (285-295); Phosphorus 3.5 mg/dL (2.5-4.5); Potassium 3.6 mmol/L (3.5-5.1); Sodium 133 mmol/L (136-145); Total Bilirubin 0.2 mg/dL (0.15-1.2); Total Protein 6.2 g/dL (6.6-8.7)
[2022-01-05 06:15] LABS: Glucose Point of Care 157 mg/dL (70-110)
[2022-01-05] MEDS: sennosides-docusate Tablet 1 TAB PO (08:12)
[2022-01-05] MEDS: pantoprazole DR 40 mg Tablet PO ×2 (08:12→17:15)
[2022-01-05] MEDS: potassium chloride ER 20 mEq Tablet PO (08:12)
[2022-01-05] MEDS: rivaroxaban 10 mg Tablet PO (08:12)
[2022-01-05] MEDS: insulin lispro 100 unit/1 mL SUBCUT ×3 (08:13→17:15)
[2022-01-05] MEDS: ipratropium-albuterol 3 mL Neb INHALATION ×3 (08:38→21:51)
[2022-01-05] MEDS: bumetanide 1 mg Tablet 2 MG PO (10:52)
[2022-01-05] MEDS: metoprolol tartrate 50 mg Tablet 100 MG PO ×2 (10:52→17:15)
[2022-01-05 10:56] LABS: Glucose Point of Care 166 mg/dL (70-110)
--- NOTE | 2022-01-05 11:15 | PC.NURSE ---
notified Dr. Santos: 260 [facility] BP 177/116 HR 107. This is about 10 min after I pushed solu medrol. He was also up to the bathroom and tidying his room. He did say he was hot and feeling flushed but denied chest pain.
--- NOTE | 2022-01-05 11:18 | P.PN_ITS ---
Subjective Subjective: Patient was seen and examined this morning, was complaining of not feeling well overall, was also complaining of dizziness. Has been afebrile overnight Medications: Medication Review Details: Generic Name Dose Route Start Last Admin Trade Name Larry PRN Reason Stop Dose Admin Allopurinol 200 mg 01/05/22 00:31 01/05/22 01:04 Allopurinol 100 Mg Tablet PO 200 mg BEDTIME NORA Administration Bumetanide 2 mg 01/05/22 10:00 01/05/22 10:52 Bumetanide 1 Mg Tablet PO 2 mg DAILY NORA Administration Insulin Human Lisp ro 0 unit 01/05/22 08:00 01/05/22 08:13 Insulin Lispro 1 00 Unit/1 Ml SUBCUT 4 unit TIDWM NORA Administration Protocol Methylprednisolone Sodium Succinate 60 mg 01/05/22 10:00 01/05/22 10:52 Methylprednisolo ne Sod Succ 125 Mg /2 Ml Inj IVP 60 mg Q12H NORA Administration Metoprolol Tartrat e 100 mg 01/05/22 10:00 01/05/22 10:52 Metoprolol Tartr ate 50 Mg Tablet PO 100 mg BID NORA Administration Morphine Sulfate 15 mg 01/05/22 00:31 01/05/22 01:04 Morphine Ir 15 M g Tablet PO 15 mg Q6H PRN Administration pAIN Pantoprazole Sodiu m 40 mg 01/05/22 09:00 01/05/22 08:[address] 40 Mg Tablet PO 40 mg BID NORA Administration Potassium Chloride 20 meq 01/05/22 09:00 01/05/22 08:12 Potassium Chlori de Er 20 Meq Table t PO 20 meq DAILY NORA Administration Rivaroxaban 10 mg 01/05/22 09:00 01/05/22 08:12 Rivaroxaban 10 M g Tablet PO 10 mg DAILY NORA Administration Senna/Docusate Sod ium 1 tab 01/05/22 09:00 01/05/22 08:12 Sennosides-Docus ate Tablet PO 1 tab DAILY NORA Administration Vitals/I&O/Wt Last Vital Signs Temp 98.5 F 01/04/22 19:54 Pulse 99 01/05/22 08:38 Resp 18 01/05/22 08:38 BP 130/68 01/05/22 00:04 Pulse Ox 92 01/05/22 08:38 O2 Del Method 01/05/22 08:38 O2 Flow Rate 2 01/04/22 21:24 FiO2 30 01/05/22 04:47 01/04/22 01/05/22 01/05/22 22:59 06:59 14:59 Intake Total 500 / 500 480 / 980 360 / 360 Output Total 400 / 400 Balance 500 / 500 80 / 580 360 / 360 Weight last 48 hrs Weight 181.891 kg Weight 181.891 kg Physical Exam Const: COMMON NORMALS: patient oriented x3 Resp: COMMON NORMALS: No use of accessory muscles OTHER: Bilateral wheezing present in both lung field Cardio: COMMON NORMALS: regular rate, regular rhythm, S1 normal heart sound present, S2 normal heart sound present, No gallops present (Cardio), No murmurs present (Cardio), No rub (Cardio) and Peripheral pulses 2+ throughout RATE: regular rate RHYTHM: regular rhythm HEART SOUNDS: S1 normal heart sound present and S2 normal heart sound present PERIPHERAL PULSES: Peripheral pulses 2+ throughout GI: COMMON NORMALS: Normal to inspection, nondistended, normoactive bowel sounds present, Soft to palpation, non-tender, No hepatosplenomegaly present and no masses AUSCULTATION: Yes normoactive bowel sounds PALPATION: Yes Soft to palpation and Yes No hepatosplenomegaly present RECTAL EXAM: Yes deferred Neuro: COMMON NORMALS: patient oriented x3 Data : 01/05/22 02:44 01/05/22 02:44 A&P Assessment and plan (1) Acute kidney injury superimposed on CKD: Status: Acute (2) COVID: Status: Acute (3) Hypertrophy of uvula: Status: Acute (4) Atrial fibrillation: Status: Acute (5) Diastolic heart failure: Status: Acute Qualifiers: Heart failure chronicity: chronic Qualified Code(s): I50.32 - Chronic diastolic (congestive) heart failure (6) External hemorrhoids with complication: Status: Resolved (7) Anemia: Status: Acute (8) Morbid obesity: Status: Acute (9) Diabetic neuropathy: Status: Acute Qualifiers: Diabetes mellitus type: type 2 Diabetes mellitus complication detail: diabetic polyneuropathy Qualified Code(s): E11.42 - Type 2 diabetes mellitus with diabetic polyneuropathy (10) Stage 3 chronic kidney disease due to diabetes mellitus: Status: Acute (11) COVID-19: Status: Acute Plan COVID-19: Patient was diagnosed with COVID-19 on Sunday at home, since then he was taking Paxil with (300-100 ) X-ray chest: Possible minimal left lower lung field atelectasis Monitor inflammatory markers Pro Calcitonin 0.20 Continue DuoNebs Supplemental oxygen as needed Solu-Medrol 60 IV twice daily Will avoid remdesivir for now, as patient is saturating well on room air ANAHI ON 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 daily' Monitor intake output charting Monitor daily weight History of atrial fibrillation: Continue metoprolol Continue Xarelto Continue telemetry monitoring CODE STATUS: Full code DVT prophylaxis: Not needed on Xarelto Attestations Medical Necessity Statement*: Patient is still in hospital for management of COVID-19. Coding Level of Care Code Acute [employer] Manager for Marcelle Bang Diagnoses Acute kidney injury superimposed on CKD N17.9; N18.9 COVID U07.1 Hypertrophy of uvula K13.79 Atrial fibrillation I48.91 Diastolic heart failure I50.32 Heart failure chronicity: chronic External hemorrhoids with complication K64.4 Anemia D64.9 Morbid obesity E66.01 Diabetic neuropathy E11.42 Diabetes mellitus type: type 2 Diabetes mellitus complication detail: diabetic polyneuropathy Stage 3 chronic kidney disease due to diabetes mellitus E11.22; N18.3 COVID-19 U07.1
[2022-01-05 16:40] LABS: Glucose Point of Care 327 mg/dL (70-110)
[2022-01-05] MEDS: isosorbide mononitrate ER 30 mg Tablet 60 MG PO (17:15)
[2022-01-05] MEDS: insulin glargine 100 units/1 mL 10 UNIT SUBCUT (21:09)
[2022-01-05 21:23] LABS: Glucose Point of Care 374 mg/dL (70-110)
[2022-01-06] VITALS (8 sets, daily range): BP systolic 145–212; BP diastolic 87–155; PULSE 88–110; RESP 17–20; TEMP 36.5–37; O2SAT 93–96
[2022-01-06 02:41] LABS: Hematocrit 36.1 % (42.0-52.0); Hemoglobin 10.7 g/dL (11.7-16.6); Lymphocytes # 0.5 10^3/uL (0.8-4.8); Mean Corpuscular HGB Conc 29.6 g/dL (30.0-36.0); Mean Corpuscular Volume 80.9 fl (80-94); Monocytes # 0.1 10^3/uL (0.2-0.9); Monocytes % 1.7 %; Neutrophils # 3.48 10^3/uL (1.8-7.7); Neutrophils % 85.6 %; Nucleated Red Blood Cells % 0 %; Platelet Count 194 10^3/cmm (130-400); Red Blood Count 4.46 10^6/uL (4.1-5.3); Red Cell Distribution Width 15.6 % (12.1-15.1); White Blood Count 4.1 10^3/uL (4.0-10.0)
[2022-01-06] MEDS: ipratropium-albuterol 3 mL Neb INHALATION ×2 (02:48→09:05)
[2022-01-06 03:07] LABS: Anion Gap 17.8 (5-19); Blood Urea Nitrogen 25 mg/dL (8-23); Calcium 9.1 mg/dL (8.5-10.5); Carbon Dioxide 29 mmol/L (22-29); Chloride 93 mmol/L (98-107); Glomerular Filtration Rate 43.5 mL/min (90-130); Glucose 375 mg/dL (65-115); Osmolality Calculated 300 mOsm/kg (285-295); Potassium 4.8 mmol/L (3.5-5.1); Sodium 135 mmol/L (136-145)
[2022-01-06 07:36] LABS: Glucose Point of Care 384 mg/dL (70-110)
[2022-01-06] MEDS: insulin lispro 100 unit/1 mL SUBCUT ×2 (08:30→11:29)
[2022-01-06] MEDS: potassium chloride ER 20 mEq Tablet PO (08:33)
[2022-01-06] MEDS: pantoprazole DR 40 mg Tablet PO (08:33)
[2022-01-06] MEDS: sennosides-docusate Tablet 1 TAB PO (08:33)
[2022-01-06] MEDS: isosorbide mononitrate ER 30 mg Tablet 60 MG PO (08:33)
[2022-01-06] MEDS: metoprolol tartrate 50 mg Tablet 100 MG PO (08:33)
[2022-01-06] MEDS: ezetimibe 10 mg Tablet PO (08:33)
[2022-01-06] MEDS: spironolactone 25 mg Tablet 12.5 MG PO (08:33)
[2022-01-06] MEDS: rivaroxaban 10 mg Tablet PO (08:33)
[2022-01-06] MEDS: fenofibrate 145 mg Tablet PO (08:34)
[2022-01-06] MEDS: bumetanide 1 mg Tablet 2 MG PO (08:34)
--- NOTE | 2022-01-06 10:03 | PC.CHAP ---
Pastoral Care Encounter/Spiritual Assessment Type of Contact [] Declined an/sqq 89(v)15 sonar system journeyman visit [] Patient/Family/Request visit [] Outpatient visit [] Follow-up visit [] Physician referral [] Code/Alert [x] Routine visit [] Staff referral [] Actively dying [] Patient sleeping [] Family support [] [] Out of room [] Palliative care [] [] Receiving care in room [] Pre-surgical visit [] Trauma [] Long length of stay [] ICU visit [x] Other: covid Relational/Emotional Strength [] Patient feels connected with others/family/visitors/staff [] Distress [] Loneliness/isolation [] Abandonment Spirituality of Patient [] Person of Alexandra [] Attends Religious of their Alexandra [] Believes in Prayer [] Reads Bible or Restoration materials [] There are Spiritual issues to be addressed Fish [employer]cher Interventions [x] Prayer [] Active listening [] Non-anxious presence [] Spiritual/emotional support [] Crisis/trauma care [] Spiritual counseling [] Bereavement support [] Provided bereavement packet [] Provided Bible/devotional materials [] Provided toy/stuffed animal, coloring book to patient or family member [] Provided Communion [] Anointing/[place] [] Salvation [] Completed spiritual assessment [] Other: Impact on Illness or Injury [] Angry [] Fearful [] Anxious [] Often cries [] Exhaustion [] Unable to work [] Unable to attend jehovah's witness [] Unable to walk/stand [] Unable to read [] Unable to drive [] Unable to eat/drink [] Unable to sleep [] Unable to be with family [] Patient intubated [] Other: Summary Time spent with patient
[2022-01-06 10:06] LABS: Glucose Point of Care 422 mg/dL (70-110)
[2022-01-06] MEDS: insulin lispro 100 unit/1 mL 10 UNIT SUBCUT (10:23)
[2022-01-06] MEDS: insulin glargine 100 units/1 mL 20 UNIT SUBCUT (10:24)
--- NOTE | 2022-01-06 11:03 | P.DS_ITS ---
Discharge Providers Date of Admission: 01/05/22 12:05 Date of Discharge: January 06, 2022 Attending Provider at Admission: Orlando Coles MD Attending Provider at Discharge: Paul Santos MD Primary Care Provider: Lilian Mcintyre Diagnoses at Discharge Discharge Diagnosis (1) Acute kidney injury superimposed on CKD: Status: Acute (2) COVID: Status: Acute (3) Hypertrophy of uvula: Status: Acute (4) Atrial fibrillation: Status: Acute Permanent problem details: on anticoagulation (5) Diastolic heart failure: Status: Acute Qualifiers: Heart failure chronicity: chronic Qualified Code(s): I50.32 - Chronic diastolic (congestive) heart failure (6) External hemorrhoids with complication: Status: Resolved (7) Anemia: Status: Acute (8) Morbid obesity: Status: Acute (9) Diabetic neuropathy: Status: Acute Qualifiers: Diabetes mellitus complication detail: diabetic polyneuropathy Diabetes mellitus type: type 2 Qualified Code(s): E11.42 - Type 2 diabetes mellitus with diabetic polyneuropathy (10) Stage 3 chronic kidney disease due to diabetes mellitus: Status: Acute (11) COVID-19: Status: Acute Reason for Visit Reason for Visit: sob, covid positive Hospital Course Hospital Course Mauro Solis is a 66 year old male with history of CHF, A. 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 He was also continued to be managed for his other comorbid conditions.Overall patient responded well to above medical management and is being discharged in stable condition home. Physical Exam Const: COMMON NORMALS: patient oriented x3 Resp: COMMON NORMALS: No use of accessory muscles OTHER: Diminished air entry bilaterally Cardio: COMMON NORMALS: regular rate, regular rhythm, S1 normal heart sound present, S2 normal heart sound present, No gallops present (Cardio), No murmurs present (Cardio), No rub (Cardio) and Peripheral pulses 2+ throughout RATE: regular rate RHYTHM: regular rhythm HEART SOUNDS: S1 normal heart sound present and S2 normal heart sound present PERIPHERAL PULSES: Peripheral pulses 2+ throughout GI: COMMON NORMALS: Normal to inspection, nondistended, normoactive bowel sounds present, Soft to palpation, non-tender, No hepatosplenomegaly present and no masses AUSCULTATION: Yes normoactive bowel sounds PALPATION: Yes Soft to palpation and Yes No hepatosplenomegaly present RECTAL EXAM: Yes deferred Neuro: COMMON NORMALS: patient oriented x3 Discharge Data Studies Completed and Pending Completed Studies During Hospitalization Category Date Time Status XR chest 1V portable [id number] Stat Exams 01/04/22 18:28 Completed Pending at discharge Category Date Time Status BMP [Basic Metabolic Panel] AM LABS Lab 01/07/22 04:00 Ordered BMP [Basic Metabolic Panel] AM LABS Lab 01/08/22 04:00 Ordered CBC Auto Diff [Complete Blood Count w/Auto] AM LABS Lab 01/07/22 04:00 Ordered CBC Auto Diff [Complete Blood Count w/Auto] AM LABS Lab 01/08/22 04:00 Ordered Radiology Impressions Chest X-Ray 01/04/22 18:28 IMPRESSION: Left hemidiaphragm is somewhat obscured which may relate to some atelectasis. Laboratory Results WBC 4.1 10^3/uL (4.0-10.0) 01/06/22 01:58 RBC 4.46 10^6/uL (4.1-5.3) 01/06/22 01:58 Hgb 10.7 g/dL (11.7-16.6) L 01/06/22 01:58 Hct 36.1 % (42.0-52.0) L 01/06/22 01:58 MCV 80.9 fl (80-94) 01/06/22 01:58 MCH 24.0 pg (28.0-34.0) L 01/06/22 01:58 MCHC 29.6 g/dL (30.0-36.0) L 01/06/22 01:58 RDW 15.6 % (12.1-15.1) H 01/06/22 01:58 Plt Count 194 10^3/cmm (130-400) 01/06/22 01:58 MPV 10.0 fL (7.4-10.4) 01/06/22 01:58 Neut % (Auto) 85.6 % 01/06/22 01:58 Lymph % (Auto) 12.0 % 01/06/22 01:58 [place] % (Auto) 1.7 % 01/06/22 01:58 Eos % (Auto) 0.0 % 01/06/22 01:58 Baso % (Auto) 0.0 % 01/06/22 01:58 Neut # (Auto) 3.48 10^3/uL (1.8-7.7) 01/06/22 01:58 Lymph # (Auto) 0.5 10^3/uL (0.8-4.8) L 01/06/22 01:58 [place] # (Auto) 0.1 10^3/uL (0.2-0.9) L 01/06/22 01:58 Eos # (Auto) 0.0 10^3/uL (0.0-0.8) 01/06/22 01:58 Baso # (Auto) 0.0 10^3/uL (0.0-0.1) 01/06/22 01:58 Nucleated RBC % (auto) 0 % 01/06/22 01:58 Nucleated RBCs # 0.0 /100WBC 01/06/22 01:58 Sodium 135 mmol/L (136-145) L 01/06/22 01:58 Potassium 4.8 mmol/L (3.5-5.1) 01/06/22 01:58 Chloride 93 mmol/L (98-107) L 01/06/22 01:58 Carbon Dioxide 29 mmol/L (22-29) 01/06/22 01:58 Anion Gap 17.8 (5-19) 01/06/22 01:58 BUN 25 mg/dL (8-23) H 01/06/22 01:58 Creatinine 1.6 mg/dL (0.7-1.2) H 01/06/22 01:58 GFR Calculation 43.5 mL/min (90-130) L 01/06/22 01:58 Glucose 375 mg/dL (65-115) H 01/06/22 01:58 POC Glucose 422 mg/dL (70-110) H 01/06/22 09:54 Estimat Average Glucose 246 01/04/22 19:04 Hemoglobin A1c 10.2 % (4.0-6.0) H 01/04/22 19:04 Calculated Osmolality 300 mOsm/kg (285-295) H 01/06/22 01:58 Calcium 9.1 mg/dL (8.5-10.5) 01/06/22 01:58 Phosphorus 3.5 mg/dL (2.5-4.5) 01/05/22 02:44 Magnesium 1.9 mg/dL (1.7-2.3) 01/05/22 02:44 Total Bilirubin 0.2 mg/dL (0.15-1.2) 01/05/22 02:44 AST 52 U/L (0-40) H 01/05/22 02:44 ALT 52 U/L (0-41) H 01/05/22 02:44 Alkaline Phosphatase 60 U/L (40-130) 01/05/22 02:44 Troponin T Baseline 14 ng/L (0-15) 01/04/22 19:04 Troponin T 120 Minute 15.59 ng/L (0-15) H 01/04/22 21:22 Delta Troponin T 1.59 ABS# (0-10) 01/04/22 21:22 C-Reactive Protein 25.9 mg/L (0.0-4.9) H 01/05/22 02:44 NT-Pro-B Natriuret Pep 575 pg/mL (0-125) H 01/04/22 19:04 Total Protein 6.2 g/dL (6.6-8.7) L 01/05/22 02:44 Albumin 3.6 g/dL (3.5-5.2) 01/05/22 02:44 Globulin 2.6 g/dL (1.3-4.6) 01/05/22 02:44 Procalcitonin 0.20 ng/mL (0-0.5) 01/04/22 19:04 Vitals Last Vital Signs Temp 97.7 F 01/06/22 08:00 Pulse 108 H 01/06/22 09:05 Resp 18 01/06/22 09:05 BP 161/87 01/06/22 10:00 Pulse Ox 93 01/06/22 09:05 O2 Del Method 01/06/22 09:05 O2 Flow Rate 2 01/04/22 21:24 FiO2 30 01/06/22 02:49 Discharge Plan Discharge Patient Disposition: Home Condition: Stable Prescriptions: Continued Trulicity 0.75 mg/0.5 mL pen injector 3 mg SUBCUT Q7D Rx Instructions: ON FRIDAYS ([facility] [place]) blood-glucose meter [Accu-Chek Guide Glucose Meter] Misc See Rx Instructions .ROUTE .MEDSUPPLY Qty: 1 0RF Rx Instructions: As directed ([facility] [place]) lancets [Accu-Chek Fastclix Lancet Drum] Misc See Rx Instructions .ROUTE .MEDSUPPLY Qty: 200 3RF Rx Instructions: three times/day ([facility] [place]) Diabetic shoes with molded inserts See Rx Instructions .Route .MEDSUPPLY Qty: 1 0RF Rx Instructions: As directed fenofibrate nanocrystallized 145 mg tablet 145 mg PO DAILY acyclovir 5 % ointment See Rx Instructions .ROUTE .COMPLEX Rx Instructions: aaa topically qid prn ergocalciferol (vitamin D2) 50,000 unit capsule 50,000 unit PO Q30D (DME) pen needle, diabetic 31 gauge x 1/4 needle See Rx Instructions .Route Qty: 100 3RF Rx Instructions: As directed acetaminophen [Tylenol Extra Strength] 500 mg tablet 1,000 mg PO Q6H PRN (Reason: Pain) rivaroxaban 20 mg tablet 20 mg PO DAILY Qty: 90 3RF Hold Instructions: Resume on 04/16/21. potassium chloride 20 mEq tablet extended release 20 meq PO DAILY tramadol 50 mg tablet 50 mg PO TID PRN (Reason: pain) Qty: 30 0RF mupirocin 2 % ointment 1 applic topical BID bumetanide 2 mg tablet See Rx Instructions PO DAILY Qty: 90 3RF Rx Instructions: 2mg in the AM, 1 mg at 2 PM spironolactone 25 mg tablet 12.5 mg PO DAILY Qty: 45 3RF (DME) Diabetic shoes with 3 pairs of inserts See Rx Instructions .Route .MEDSUPPLY Qty: 1 0RF Rx Instructions: As directed ondansetron HCl 4 mg tablet 4 mg PO Q6H PRN (Reason: Nausea) Natural Vegetable (psyllium) Powder 2 tbsp PO DAILY Rx Instructions: mix into at least 8 oz of water or juice before administering (DME) Diabetic shoes with inserts See Rx Instructions .Route .MEDSUPPLY Qty: 1 0RF Rx Instructions: As directed ketoconazole 2 % cream See Rx Instructions .ROUTE .COMPLEX Qty: 60 2RF Dose Instruction: APPLY CREAM TOPICALLY TO AFFECTED AREA TWICE DAILY FOR 30 DAYS Rx Instructions: APPLY CREAM TOPICALLY TO AFFECTED AREA TWICE DAILY FOR 30 DAYS (DME) Accu-Chek Guide test strips Strip See Rx Instructions .ROUTE .MEDSUPPLY Qty: 300 3RF Rx Instructions: test blood sugar three times a day ezetimibe 10 mg tablet 10 mg PO DAILY Qty: 90 3RF (DME) pen needle, diabetic [BD Gabriella 2nd Gen Pen Needle] 32 gauge x 5/32 needle See Rx Instructions .Route Qty: 100 3RF Rx Instructions: As directed verapamil 240 mg tablet extended release 240 mg PO DAILY Qty: 90 3RF (DME) FreeStyle Huma 2 Sensor Kit See Rx Instructions .Route Qty: 6 3RF Rx Instructions: Change every 14 days. (DME) FreeStyle Huma 2 [place] Misc See Rx Instructions .Route Qty: 1 0RF Rx Instructions: Check BS 4 -6 times a day. metoprolol tartrate 50 mg tablet 100 mg PO BID Qty: 360 3RF pantoprazole 40 mg tablet,delayed release (DR/EC) 40 mg PO BID Qty: 180 2RF nitroglycerin [Nitrostat] 0.4 mg tablet, sublingual 0.4 mg SUBLINGUAL DIRECTED 30 Days Qty: 25 6RF allopurinol 100 mg tablet 200 mg PO BEDTIME Qty: 60 0RF triamcinolone acetonide 0.1 % cream 1 applic topical BID PRN (Reason: joint inflamation) diclofenac sodium 1 % gel See Rx Instructions .ROUTE .COMPLEX PRN (Reason: Pain, Mild) Rx Instructions: 4 grams topically qid prn gabapentin 100 mg Capsule 100 mg PO TID PRN (Reason: Pain) Lantus U-100 Insulin 100 unit/mL Solution 10 unit SUBCUT DAILY glimepiride 4 mg Tablet 8 mg PO DAILY magnesium 250 mg Tablet 500 mg PO DAILY Novolog Flexpen U-100 Insulin 100 unit/mL (3 mL) Insulin Pen 3 unit SUBCUT TID isosorbide mononitrate 30 mg tablet extended release 24 hr 60 mg PO BID 30 Days Qty: 180 3RF Discontinued prednisone 10 mg tablet See Rx Instructions PO .COMPLEX PRN (Reason: gout pain flare) Qty: 30 1RF Rx Instructions: take 1 daily for 4-5 days as needed for gout flare PO PRN; Discharge Orders: Discharge Order (Routine); Ordered 01/06/22 Ordered By: Paul Santos Referrals: Lilian Mcintyre FNP [Primary Care Provider] - 01/12/22 8:30 am Discharge Diet: Diabetic Patient Instructions: Heart Failure (ED), Acute Kidney Injury (IP), COVID-19 (Coronavirus Disease 2019) (GEN), COVID-19: Slow the Coronavirus Spread (GEN), CHF Stoplight, Opioid Safety Discharge Attestations Time Spent in Discharge Care*: less than 30 min Quality Metrics Clinical Quality Measures [ No reported AMI, CVA or VTE this stay] Coding Level of Care Code Acute Chg [facility] note Diagnoses Acute kidney injury superimposed on CKD N17.9; N18.9 COVID U07.1 Hypertrophy of uvula K13.79 Atrial fibrillation I48.91 Diastolic heart failure I50.32 Heart failure chronicity: chronic External hemorrhoids with complication K64.4 Anemia D64.9 Morbid obesity E66.01 Diabetic neuropathy E11.42 Diabetes mellitus complication detail: diabetic polyneuropathy Diabetes mellitus type: type 2 Stage 3 chronic kidney disease due to diabetes mellitus E11.22; N18.3 COVID-19 U07.1
[2022-01-06 11:36] LABS: Glucose Point of Care 472 mg/dL (70-110)
== END 2022-01-06 13:55 | disposition home or self-care (01) | DRG 177 ==
LOC: ER 22:32 → MEDSURG 01-05 00:03
PROVIDERS: Admitting Provider Internal Medicine; Emergency Provider Emergency Medicine; PCP Nurse Practitioner Family; Visit Provider Internal Medicine
DX: U07.1 COVID-19 (principal); I50.33 Acute on chronic diastolic (congestive) heart failure; I13.0 Hypertensive heart and chronic kidney disease with heart failure and stage 1 through stage 4 chronic kidney disease, or unspecified chronic kidney disease; N17.9 Acute kidney failure, unspecified; Z68.43 Body mass index [BMI] 50.0-59.9, adult; N18.32 Chronic kidney disease, stage 3b; E11.22 Type 2 diabetes mellitus with diabetic chronic kidney disease; E11.42 Type 2 diabetes mellitus with diabetic polyneuropathy; I48.91 Unspecified atrial fibrillation; E11.65 Type 2 diabetes mellitus with hyperglycemia; E66.01 Morbid (severe) obesity due to excess calories; Z79.84 Long term (current) use of oral hypoglycemic drugs; Z79.4 Long term (current) use of insulin
CPT/HCPCS: 36415; 36416; 71045; 80048; 80053; 82962; 83036; 83735; 83880; 84100; 84145; 84484; 85025; 86140; 87641; 93005; 94640; 94660; 96361; 96372; 96374; 99291; G0378; J1815; J2930; J3490; J7040

== ENCOUNTER → 2022-01-24 09:45 | Outpatient (BNVA) | payer MEDICARE, MEDICAID, SELFPAY | PROVIDERS: PCP Nurse Practitioner Family; Visit Provider Otolaryngology | DX: E04.9 Nontoxic goiter, unspecified (principal) | CPT/HCPCS: 99212; 99213 ==

== ENCOUNTER → 2022-02-03 10:22 | Outpatient (BNVA) | payer MEDICAID, SELFPAY | PROVIDERS: PCP Family Medicine; Visit Provider Internal Medicine | DX: E11.65 Type 2 diabetes mellitus with hyperglycemia (principal); E11.42 Type 2 diabetes mellitus with diabetic polyneuropathy; E11.22 Type 2 diabetes mellitus with diabetic chronic kidney disease; E78.2 Mixed hyperlipidemia; E04.9 Nontoxic goiter, unspecified; E04.1 Nontoxic single thyroid nodule; E66.01 Morbid (severe) obesity due to excess calories; Z68.44 Body mass index [BMI] 60.0-69.9, adult; E78.5 Hyperlipidemia, unspecified; E55.9 Vitamin D deficiency, unspecified; Z79.4 Long term (current) use of insulin; N18.30 Chronic kidney disease, stage 3 unspecified | CPT/HCPCS: 99214 ==

== ENCOUNTER → 2022-02-28 10:37 | Outpatient (BNVA) | payer MEDICARE, MEDICAID, SELFPAY | PROVIDERS: PCP Family Medicine; Visit Provider Podiatrist Foot & Ankle Surgery | DX: E11.42 Type 2 diabetes mellitus with diabetic polyneuropathy (principal); L60.3 Nail dystrophy; I73.9 Peripheral vascular disease, unspecified; M20.21 Hallux rigidus, right foot; M20.22 Hallux rigidus, left foot; B35.3 Tinea pedis; M20.41 Other hammer toe(s) (acquired), right foot; M20.42 Other hammer toe(s) (acquired), left foot; M21.41 Flat foot [pes planus] (acquired), right foot; M21.42 Flat foot [pes planus] (acquired), left foot; E11.8 Type 2 diabetes mellitus with unspecified complications; Z79.4 Long term (current) use of insulin | CPT/HCPCS: 11721 ==

== ENCOUNTER 2022-03-06 20:00 | Outpatient (CLI) | payer MEDICARE, MEDICAID, SELFPAY | END 2022-03-06 20:01 | disposition home or self-care (01) | LOC: SLEEP 03-07 05:02 | PROVIDERS: PCP Family Medicine; Visit Provider Family Medicine | DX: G47.33 Obstructive sleep apnea (adult) (pediatric) (principal); G47.69 Other sleep related movement disorders | CPT/HCPCS: 95811 ==

== ENCOUNTER 2022-04-19 11:21 | Outpatient (CLI) | payer MEDICARE, MEDICAID, SELFPAY ==
[2022-04-19 12:51] LABS: Alanine Aminotransferase 25 U/L (0-41); Albumin Level 4.1 g/dL (3.5-5.2); Alkaline Phosphatase 65 U/L (40-130); Anion Gap 17.2 (5-19); Aspartate Amino Transferase 24 U/L (0-40); Blood Urea Nitrogen 24 mg/dL (8-23); Calcium 9.3 mg/dL (8.5-10.5); Carbon Dioxide 24 mmol/L (22-29); Chloride 102 mmol/L (98-107); Chol HDL Ratio 4.79 mg/dL (1.0-5.00); Cholesterol 158 mg/dL (0-200); Free T4 Free Thyroxine 1.18 ng/dL (0.82-1.77); Globulin 2.7 g/dL (1.3-4.6); Glomerular Filtration Rate 55.2 mL/min (90-130); Glucose 206 mg/dL (65-115); HDL Cholesterol 33 mg/dL (60-100); LDL Cholesterol Calculated 90 mg/dL (50-129); LDL HDL Ratio 2.73 RATIO (0.00-3.22); Osmolality Calculated 298 mOsm/kg (285-295); Potassium 4.2 mmol/L (3.5-5.1); Sodium 139 mmol/L (136-145); Thyroid Stimulating Hormone 2.52 uIU/mL (0.27-4.20); Total Bilirubin 0.3 mg/dL (0.15-1.2); Total Protein 6.8 g/dL (6.6-8.7); Triglycerides 176 mg/dL (0-150)
[2022-04-19 12:54] LABS: Estmated Average Glucose 263; Hemoglobin A1C 10.8 % (4.0-6.0)
== END 2022-04-19 11:22 | disposition home or self-care (01) ==
LOC: LAB 11:25
PROVIDERS: PCP Family Medicine; Visit Provider Internal Medicine
DX: E78.2 Mixed hyperlipidemia (principal); E04.9 Nontoxic goiter, unspecified
CPT/HCPCS: 36415; 80053; 80061; 83036; 84439; 84443

== ENCOUNTER → 2022-05-23 10:37 | Outpatient (BNVA) | payer MEDICARE, MEDICAID, SELFPAY | PROVIDERS: PCP Family Medicine; Visit Provider Nurse Practitioner Family | DX: I50.32 Chronic diastolic (congestive) heart failure (principal); I48.91 Unspecified atrial fibrillation | CPT/HCPCS: 99214 ==

== ENCOUNTER → 2022-07-24 12:49 | Outpatient (BNVA) | payer MEDICARE, MEDICAID, SELFPAY | PROVIDERS: PCP Family Medicine; Visit Provider Otolaryngology | DX: E04.9 Nontoxic goiter, unspecified (principal); E04.1 Nontoxic single thyroid nodule | CPT/HCPCS: 99213 ==

== ENCOUNTER → 2022-08-01 07:36 | Outpatient (BNVA) | payer MEDICARE, MEDICAID, SELFPAY | PROVIDERS: PCP Family Medicine; Visit Provider Podiatrist Foot & Ankle Surgery | DX: Z79.4 Long term (current) use of insulin (principal); E11.42 Type 2 diabetes mellitus with diabetic polyneuropathy; I73.9 Peripheral vascular disease, unspecified; L60.3 Nail dystrophy; M20.21 Hallux rigidus, right foot; M20.22 Hallux rigidus, left foot; B35.3 Tinea pedis; M20.41 Other hammer toe(s) (acquired), right foot; M20.42 Other hammer toe(s) (acquired), left foot; M21.41 Flat foot [pes planus] (acquired), right foot; M21.42 Flat foot [pes planus] (acquired), left foot | CPT/HCPCS: 11721 ==

== ENCOUNTER → 2022-08-03 12:24 | Outpatient (BNVA) | payer MEDICARE, MEDICAID, SELFPAY | PROVIDERS: PCP Family Medicine; Visit Provider Nurse Practitioner Family | DX: I48.91 Unspecified atrial fibrillation (principal); I50.32 Chronic diastolic (congestive) heart failure; E78.2 Mixed hyperlipidemia; Z86.39 Personal history of other endocrine, nutritional and metabolic disease | CPT/HCPCS: 36415; 80048; 80053; 80061; 82044; 83036; 83880; 84550; 85025; 86140; 99214 ==

== ENCOUNTER 2022-08-11 09:13 | Outpatient (CLI) | payer MEDICARE, MEDICAID, SELFPAY ==
--- NOTE | 2022-08-11 09:30 | CT_ITS ---
WS: [id number] CT NECK TECHNIQUE: Contrast-enhanced CT of the neck with coronal and sagittal reformatted images. CLINICAL INFORMATION: retrosternal thyroid goiter COMPARISON: CT 04/25/21. Ultrasound December 29, 2021 DLP: 300.[address] scans at [facility] use at least one of these dose optimization techniques: automated e xposure control; mA and/or kV adjustment per patient size (includes targeted exams where dose is matc hed to clinical indication); or iterative reconstruction. FINDINGS:Somewhat prominent heterogeneous thyroid for a patient this age with mild substernal extensi on. RIGHT greater than LEFT thyroid nodularity appears similar to the prior studies. No dominant nodu les visualized. Images at the thoracic inlet are degraded due to beam hardening artifact from shoulde r overlap. Mastoid air cells well aerated. Partially visualized paranasal sinuses are well aerated. Small retent ion cyst in the maxillary sinuses. Normal posterior nasopharynx. Normal parapharyngeal fat. Lung apic es are well aerated. Parotid glands are normal. Normal submandibular glands. Normal nasopharynx. Norm al parapharyngeal fat. No cervical lymphadenopathy. Retropharyngeal course to the common carotid arteries and cervical ICAs. Straightening of the normal cervical lordosis. ACDF C4-C5. CT/CT neck w con* [id number] IMPRESSION: 1. Normal salivary glands. 2. Normal posterior nasopharynx. Normal parapharyngeal fat. 3. No cervical lymphadenopathy. 4. Somewhat prominent heterogeneous thyroid for a patient this age. RIGHT grea ter than LEFT thyroid nodularity appears similar to the prior studies. Images a t the thoracic inlet are degraded due to beam hardening artifact from shoulder overlap. 5. Postoperative changes ACDF C4-C5.
[2022-08-11] MEDS: iohexol 350 mg/mL 100 mL Btl IV (10:17)
== END 2022-08-11 09:14 | disposition home or self-care (01) ==
PROVIDERS: PCP Family Medicine; Visit Provider Otolaryngology
DX: E04.9 Nontoxic goiter, unspecified (principal)
CPT/HCPCS: 70491; 84439; 84443; 84481; Q9967

== ENCOUNTER 2022-08-11 09:17 | Outpatient (CLI) | payer MEDICARE, MEDICAID, SELFPAY ==
[2022-08-11 10:49] LABS: Anion Gap 14.5 (5-19); Blood Urea Nitrogen 22 mg/dL (8-23); Calcium 8.6 mg/dL (8.5-10.5); Carbon Dioxide 28 mmol/L (22-29); Chloride 103 mmol/L (98-107); Glomerular Filtration Rate 60.4 mL/min (90-130); Glucose 258 mg/dL (65-115); NT Pro B Type Natriuretic Pept 924 pg/mL (0-125); Osmolality Calculated 306 mOsm/kg (285-295); Potassium 3.5 mmol/L (3.5-5.1); Sodium 142 mmol/L (136-145)
== END 2022-08-11 09:18 | disposition home or self-care (01) ==
LOC: LAB 09:20
PROVIDERS: PCP Family Medicine; Visit Provider Nurse Practitioner Family
DX: I50.32 Chronic diastolic (congestive) heart failure (principal); I48.91 Unspecified atrial fibrillation
CPT/HCPCS: 36415; 80048; 83880

== ENCOUNTER → 2022-08-15 13:12 | Outpatient (BNVA) | payer MEDICARE, MEDICAID, SELFPAY | PROVIDERS: PCP Family Medicine; Visit Provider Internal Medicine Rheumatology | DX: M06.00 Rheumatoid arthritis without rheumatoid factor, unspecified site (principal); Z79.899 Other long term (current) drug therapy; M1A.3790 Chronic gout due to renal impairment, unspecified ankle and foot, without tophus (tophi); M75.52 Bursitis of left shoulder; Z86.39 Personal history of other endocrine, nutritional and metabolic disease; E78.2 Mixed hyperlipidemia; E04.9 Nontoxic goiter, unspecified; E04.1 Nontoxic single thyroid nodule; I50.32 Chronic diastolic (congestive) heart failure; E66.9 Obesity, unspecified; Z79.4 Long term (current) use of insulin; Z68.43 Body mass index [BMI] 50.0-59.9, adult | CPT/HCPCS: 99214 ==

== ENCOUNTER → 2022-08-22 13:57 | Outpatient (BNVA) | payer MEDICARE, MEDICAID, SELFPAY | PROVIDERS: PCP Family Medicine; Visit Provider Otolaryngology | DX: E04.9 Nontoxic goiter, unspecified (principal); E04.1 Nontoxic single thyroid nodule; K13.79 Other lesions of oral mucosa | CPT/HCPCS: 99213; 99214 ==

== ENCOUNTER → 2022-09-08 09:52 | Outpatient (BNVA) | payer MEDICARE, MEDICAID, SELFPAY | PROVIDERS: PCP Family Medicine; Visit Provider Nurse Practitioner Family | DX: I13.0 Hypertensive heart and chronic kidney disease with heart failure and stage 1 through stage 4 chronic kidney disease, or unspecified chronic kidney disease (principal); E11.22 Type 2 diabetes mellitus with diabetic chronic kidney disease; N18.30 Chronic kidney disease, stage 3 unspecified; I50.32 Chronic diastolic (congestive) heart failure; Z79.4 Long term (current) use of insulin; E78.5 Hyperlipidemia, unspecified | CPT/HCPCS: 36415; 80048; 83880; 99214 ==

== ENCOUNTER 2022-09-15 10:43 | Outpatient (CLI) | payer MEDICARE, MEDICAID, SELFPAY ==
[2022-09-15 11:15] LABS: Basophils # 0.1 10^3/uL (0.0-0.1); Basophils % 0.9 %; Eosinophils # 0.1 10^3/uL (0.0-0.8); Hematocrit 31.4 % (42.0-52.0); Hemoglobin 8.7 g/dL (11.7-16.6); Lymphocytes # 1.4 10^3/uL (0.8-4.8); Lymphocytes % 18.3 %; Mean Corpuscular HGB Conc 27.7 g/dL (30.0-36.0); Mean Corpuscular Hemoglobin 19.9 pg (28.0-34.0); Mean Corpuscular Volume 71.7 fl (80-94); Mean Platelet Volume 9.5 fL (7.4-10.4); Monocytes # 0.6 10^3/uL (0.2-0.9); Monocytes % 7.9 %; Neutrophils # 5.59 10^3/uL (1.8-7.7); Neutrophils % 71.5 %; Nucleated Red Blood Cells % 0.3 %; Platelet Count 246 10^3/cmm (130-400); Red Blood Count 4.38 10^6/uL (4.1-5.3); Red Cell Distribution Width 17.6 % (12.1-15.1); White Blood Count 7.8 10^3/uL (4.0-10.0)
[2022-09-15 11:48] LABS: Alanine Aminotransferase 12 U/L (0-41); Alkaline Phosphatase 52 U/L (40-130); Anion Gap 15.4 (5-19); Aspartate Amino Transferase 17 U/L (0-40); Blood Urea Nitrogen 26 mg/dL (8-23); C Reactive Protein 25.8 mg/L (0.0-4.9); Calcium 8.5 mg/dL (8.5-10.5); Carbon Dioxide 27 mmol/L (22-29); Chloride 100 mmol/L (98-107); Globulin 2.5 g/dL (1.3-4.6); Glomerular Filtration Rate 55.1 mL/min (90-130); Glucose 174 mg/dL (65-115); NT Pro B Type Natriuretic Pept 981 pg/mL (0-125); Osmolality Calculated 295 mOsm/kg (285-295); Potassium 4.4 mmol/L (3.5-5.1); Sodium 138 mmol/L (136-145); Total Bilirubin 0.2 mg/dL (0.15-1.2); Total Protein 6.5 g/dL (6.6-8.7)
[2022-09-15 20:15] LABS: Occult Blood Stool Positive (Negative)
== END 2022-09-15 10:44 | disposition home or self-care (01) ==
PROVIDERS: PCP Family Medicine; Referring Provider Nurse Practitioner Family; Visit Provider Internal Medicine Rheumatology
DX: M06.00 Rheumatoid arthritis without rheumatoid factor, unspecified site (principal); M10.9 Gout, unspecified; Z79.899 Other long term (current) drug therapy; I50.30 Unspecified diastolic (congestive) heart failure; D64.9 Anemia, unspecified
CPT/HCPCS: 36415; 80048; 80076; 82270; 83880; 85025; 86140

== ENCOUNTER → 2022-09-20 09:36 | Outpatient (BNVA) | payer MEDICARE, MEDICAID, SELFPAY | PROVIDERS: PCP Family Medicine; Visit Provider Nurse Practitioner Family | DX: K92.1 Melena (principal); D64.9 Anemia, unspecified | CPT/HCPCS: 43239; 99214 ==

== ENCOUNTER 2022-09-20 15:00 | Observation (INO) | payer MEDICARE, MEDICAID, SELFPAY ==
[2022-09-20 15:12] VITALS: BP 142/78; PULSE 88; RESP 18; TEMP 36.7; O2SAT 97; BMI 57.5
--- NOTE | 2022-09-20 15:51 | XR_ITS ---
WS: [id number] Portable AP semiupright chest, 09/20/2022 Clinical Data: chest pain Comparison: Portable chest, 01/04/2022 Findings: No nodules, masses or effusions are seen. The heart is enlarged. The pulmonary vascularity is not increased. No pneumonia or pneumothorax is seen. There are monitor leads on the chest wall. Th ere is osteoarthritis of the left glenohumeral joint. There is an anterior cervical disc fusion. XR/XR chest 1V portable [id number] Impression: Cardiomegaly.
[2022-09-20 15:53] LABS: Basophils # 0.1 10^3/uL (0.0-0.1); Basophils % 0.9 %; Eosinophils # 0.1 10^3/uL (0.0-0.8); Eosinophils % 0.7 %; Hematocrit 31.3 % (42.0-52.0); Hemoglobin 8.6 g/dL (11.7-16.6); Lymphocytes # 1.4 10^3/uL (0.8-4.8); Lymphocytes % 19.8 %; Mean Corpuscular HGB Conc 27.5 g/dL (30.0-36.0); Mean Corpuscular Hemoglobin 20.3 pg (28.0-34.0); Mean Corpuscular Volume 73.8 fl (80-94); Mean Platelet Volume 9.8 fL (7.4-10.4); Monocytes # 0.6 10^3/uL (0.2-0.9); Monocytes % 8.2 %; Neutrophils # 4.81 10^3/uL (1.8-7.7); Neutrophils % 70.1 %; Nucleated Red Blood Cells % 0.3 %; Platelet Count 243 10^3/cmm (130-400); Red Blood Count 4.24 10^6/uL (4.1-5.3); Red Cell Distribution Width 17.9 % (12.1-15.1); White Blood Count 6.9 10^3/uL (4.0-10.0)
[2022-09-20 15:58] LABS: INR 1.02 (0.8-1.2)
[2022-09-20 15:59] LABS: Partial Thromboplastin Time 28.1 SECONDS (23.9-36.7)
--- NOTE | 2022-09-20 16:00 | W.ED.CHESTPA ---
HPI - Chest Pain General: Chief Complaint: Chest Pain Stated Complaint: Chest Pain, Abnormal Labs Time Seen by Provider: 09/20/22 15:30 History of Present Illness: Patient was sent here by Alanna De La Torre for low hemoglobin. Patient does state his hemoglobin has been going down and is currently 8.1. Patient has been having dark tarry stools per rectum. Patient is currently on Xarelto but did stop it yesterday. Patient also says he has been having chest tightness and pressure. Alanna try to get the patient iron infusion, scoped and worked up as an outpatient for this but due to multiple insurance denials and his chest pain she sent him to the ER to be further evaluated MD complaint: chest pain and chest heaviness Pertinent past history: coronary artery disease and other (Diabetes) Onset (ago): day(s) Timing of current episode: constant and still present (But improving) Prior episodes: Yes Pain location: substernal Pain radiation: none Severity: mild Quality: heaviness Relieving factors: nothing Exacerbating factors: nothing Associated symptoms: Reports leg edema; Deny abdominal pain, dyspnea, fever(s), nausea, palpitations or vomiting Review of Systems General: Reports: 10 or more systems reviewed and unremarkable except in HPI and below Const: Denies: fever(s) or chills Eyes: Denies: change in vision or photophobia ENMT: Denies: throat pain or odynophagia Card: Reports: chest pain and edema; Denies: palpitations or irregular heart rhythm Resp: Denies: dyspnea, productive cough or non-productive cough GI: Reports: melena; Denies: abdominal pain, nausea or vomiting : Denies: flank pain, difficulty urinating or dysuria Musc: Denies: neck pain, back pain or extremity pain Skin/Breast: Denies: rash or pruritus Neuro: Denies: headache(s), numbness in extremities or weakness in extremities Psych: Denies: anxiety or depression PFSH ED PFSH: Medical History Acute kidney injury superimposed on CKD Anemia Atrial fibrillation on anticoagulation Carpal tunnel syndrome Chest pain Patient underwent coronary angiogram which was normal CKD (chronic kidney disease) stage 3, GFR 30-59 ml/min COVID COVID-19 Dehydration Diabetic neuropathy Diastolic heart failure Diverticulosis Dyspnea External hemorrhoids with complication GERD (gastroesophageal reflux disease) Gout Hyperlipidemia Hypertrophy of uvula Morbid obesity Morbid obesity with BMI of 60.0-69.9, adult Neuropathy LINDA on CPAP Osteoarthritis Otalgia Rectal bleeding Rectal polyp Renal insufficiency Improved after IV fluid Rheumatoid arthritis In remission Seronegative rheumatoid arthritis in remission Stage 3 chronic kidney disease due to diabetes mellitus Substernal thyroid goiter Uncontrolled type 2 diabetes mellitus Ventral incisional hernia Vitamin D deficiency Surgical History History of colonoscopy History of esophagogastroduodenoscopy (EGD) S/P appendectomy S/P carpal tunnel release 2x left S/P cervical disc replacement S/P hernia repair S/P skin cancer resection S/P thyroid surgery S/P tonsillectomy S/P trigger finger release Family History Father Cancer Prostate Hypertension Hypercholesterolemia Heart disease Mother Hypertension Hypercholesterolemia Anesthesia complication Daughter Anesthesia complication Denies family history of Bleeding disorder Social History Smoking and tobacco status: never smoked Alcohol intake: former Substance/Drug Use: never Lives independently: Yes Household members: spouse Marital status: Current occupational status: disabled Alexandra/Gnosticism: Oriental orthodox Special alexandra needs: Yes Agree to transfusion: No Physical Exam Const: COMMON NORMALS: no acute distress, patient oriented x3, no limitations, alert and well nourished NUTRITIONAL APPEARANCE: obese HENMT: COMMON NORMALS: normocephalic, atraumatic, hearing grossly normal bilaterally, external ears normal, Normal external nose present and moist oral mucous membranes HEAD & SCALP: normocephalic and atraumatic NOSE: Normal external nose present EXTERNAL EAR: Yes external ears normal Eye: COMMON NORMALS: Equal, round and reactive pupils present, EOMs intact bilaterally, conjunctivae normal and no scleral icterus CONJUNCTIVA: Yes conjunctivae normal PUPIL: Yes Equal, round and reactive pupils present Neck/C-Spine: COMMON NORMALS: full ROM, no lymphadenopathy, supple, no meningeal signs, no JVD and Thyroid normal THYROID: Thyroid normal Lymph: LYMPHATIC: no lymphadenopathy noted Chest: COMMONS NORMALS: normal inspection of the chest and normal palpation of entire chest wall Resp: COMMON NORMALS: normal respiratory effort, No retractions, No use of accessory muscles and clear to auscultation bilaterally AUSCULTATION: clear to auscultation bilaterally Cardio: COMMON NORMALS: no JVD, regular rate, regular rhythm, S1 normal heart sound present and S2 normal heart sound present RATE: regular rate RHYTHM: regular rhythm HEART SOUNDS: S1 normal heart sound present and S2 normal heart sound present GI: COMMON NORMALS: Normal to inspection, nondistended, normoactive bowel sounds present, Soft to palpation, non-tender and No hepatosplenomegaly present PALPATION: Yes Soft to palpation and Yes No hepatosplenomegaly present : COMMON NORMALS: Yes no CVA tenderness BLADDER/KIDNEY EXAM: Yes no CVA tenderness Back/Pelvis: COMMON NORMALS: no CVA tenderness Neuro: COMMON NORMALS: patient oriented x3 SENSORIUM/ORIENTATION: Yes alert MENINGEAL SIGNS: Yes no meningeal signs Course Vital Signs: Vital signs: Vital Signs Temperature 98.0 F 09/20/22 15:12 Pulse Rate 88 09/20/22 15:12 Respiratory Rate 18 09/20/22 15:12 Blood Pressure 142/78 09/20/22 15:12 Pulse Oximetry 97 09/20/22 15:12 Oxygen Delivery Me thod Room Air 09/20/22 15:12 MDM - Chest Pain Medical Decision Making Patient sent to the ER by Alanna De La Torre for dropping hemoglobin and a GI bleed. Patient is on Xarelto. Patient has been having chest pressure. Physical exam was performed lab work was obtained which showed a hemoglobin of 8.6 and heme hematocrit of 31.3, BUN/creatinine of 23 and 1.4. Patient is having black and tarry stools and Alanna De La Torre said he had a positive Hemoccult in her office. Dr. Coles was consulted and agreed for admission with further work-up and evaluation. Dr. Sapp surgery was consulted and notified. Patient will be placed inpatient on [facility] Differential Diagnosis Unlikely acute massive pulmonary embolism, acute respiratory failure, acute myocardial infarction, cardiac arrest or sudden cardiac Medical Records I reviewed the patient's medical records. Lab Data I reviewed the patient's lab results. 09/20/22 13:30 09/20/22 13:30 Radiology Impressions Chest X-Ray 09/20/22 15:51 Impression: Cardiomegaly. Laboratory Results WBC 6.9 10^3/uL (4.0-10.0) 09/20/22 13:30 RBC 4.24 10^6/uL (4.1-5.3) 09/20/22 13:30 Hgb 8.6 g/dL (11.7-16.6) L 09/20/22 13:30 Hct 31.3 % (42.0-52.0) L 09/20/22 13:30 MCV 73.8 fl (80-94) L 09/20/22 13:30 MCH 20.3 pg (28.0-34.0) L 09/20/22 13:30 MCHC 27.5 g/dL (30.0-36.0) L 09/20/22 13:30 RDW 17.9 % (12.1-15.1) H 09/20/22 13:30 Plt Count 243 10^3/cmm (130-400) 09/20/22 13:30 MPV 9.8 fL (7.4-10.4) 09/20/22 13:30 Neut % (Auto) 70.1 % 09/20/22 13:30 Lymph % (Auto) 19.8 % 09/20/22 13:30 [place] % (Auto) 8.2 % 09/20/22 13:30 Eos % (Auto) 0.7 % 09/20/22 13:30 Baso % (Auto) 0.9 % 09/20/22 13:30 Neut # (Auto) 4.81 10^3/uL (1.8-7.7) 09/20/22 13:30 Lymph # (Auto) 1.4 10^3/uL (0.8-4.8) 09/20/22 13:30 [place] # (Auto) 0.6 10^3/uL (0.2-0.9) 09/20/22 13:30 Eos # (Auto) 0.1 10^3/uL (0.0-0.8) 09/20/22 13:30 Baso # (Auto) 0.1 10^3/uL (0.0-0.1) 09/20/22 13:30 Nucleated RBC % (auto) 0.3 % 09/20/22 13:30 Nucleated RBCs # 0.0 /100WBC 09/20/22 13:30 PT 13.70 SECONDS (12.1-14.9) 09/20/22 13:30 INR 1.02 (0.8-1.2) 09/20/22 13:30 APTT 28.1 SECONDS (23.9-36.7) 09/20/22 13:30 Sodium 138 mmol/L (136-145) 09/20/22 13:30 Potassium 3.9 mmol/L (3.5-5.1) 09/20/22 13:30 Chloride 99 mmol/L (98-107) 09/20/22 13:30 Carbon Dioxide 27 mmol/L (22-29) 09/20/22 13:30 Anion Gap 15.9 (5-19) 09/20/22 13:30 BUN 23 mg/dL (8-23) 09/20/22 13:30 Creatinine 1.4 mg/dL (0.7-1.2) H 09/20/22 13:30 GFR Calculation 50.5 mL/min (90-130) L 09/20/22 13:30 Glucose 280 mg/dL (65-115) H 09/20/22 13:30 Calculated Osmolality 300 mOsm/kg (285-295) H 09/20/22 13:30 Calcium 8.9 mg/dL (8.5-10.5) 09/20/22 13:30 Magnesium 2.2 mg/dL (1.7-2.3) 09/20/22 13:30 Total Bilirubin 0.2 mg/dL (0.15-1.2) 09/20/22 13:30 AST 17 U/L (0-40) 09/20/22 13:30 ALT 15 U/L (0-41) 09/20/22 13:30 Alkaline Phosphatase 53 U/L (40-130) 09/20/22 13:30 Troponin T Baseline 15 ng/L (0-15) 09/20/22 13:30 Troponin T 120 Minute 14.43 ng/L (0-15) 09/20/22 15:50 Delta Troponin T -0.57 ABS# (0-10) L 09/20/22 15:50 NT-Pro-B Natriuret Pep 914 pg/mL (0-125) H 09/20/22 13:30 Total Protein 6.5 g/dL (6.6-8.7) L 09/20/22 13:30 Albumin 4.0 g/dL (3.5-5.2) 09/20/22 13:30 Globulin 2.5 g/dL (1.3-4.6) 09/20/22 13:30 Lipase 86 U/L (13-60) H 09/20/22 13:30 EKG Data EKG 1: I personally reviewed and interpreted this EKG as follows: EKG interpretation date: 09/20/22 EKG interpretation time: 15:11 Prior EKG tracings: not available for review Interpretation: EKG showed ventricular rate of 86 bpm with A-fib with aberrant conduction, QRS duration 123, QTc 426, right bundle branch block, left anterior fascicular block, anteroseptal IL of indeterminate age with Q waves in V1 through V4 EKG 2: I personally reviewed and interpreted this EKG as follows: EKG interpretation date: 09/20/22 EKG interpretation time: 17:44 Prior EKG tracings: available for review Interpretation: EKG showed atrial fibrillation with a ventricular rate of 92 bpm, QRS duration 111, QTc of 413, left axis deviation, right bundle branch block, anterior septal infarct of indeterminate age Q waves in V1 through V4 Discharge Plan Discharge Patient Disposition: Admitted As Inpatient Clinical Impression: Renal insufficiency, Melena, Chronic anticoagulation Atrial fibrillation Qualifiers: Atrial fibrillation type: unspecified chronic Qualified Code(s): I48.20 - Chronic atrial fibrillation, unspecified Condition: Stable Coding Level of Care Code ED Apparel Sales Leader for Marcelle Bang
[2022-09-20 16:07] LABS: Alanine Aminotransferase 15 U/L (0-41); Alkaline Phosphatase 53 U/L (40-130); Anion Gap 15.9 (5-19); Aspartate Amino Transferase 17 U/L (0-40); Blood Urea Nitrogen 23 mg/dL (8-23); Calcium 8.9 mg/dL (8.5-10.5); Carbon Dioxide 27 mmol/L (22-29); Chloride 99 mmol/L (98-107); Globulin 2.5 g/dL (1.3-4.6); Glomerular Filtration Rate 50.5 mL/min (90-130); Glucose 280 mg/dL (65-115); Lipase 86 U/L (13-60); Osmolality Calculated 300 mOsm/kg (285-295); Potassium 3.9 mmol/L (3.5-5.1); Sodium 138 mmol/L (136-145); Total Bilirubin 0.2 mg/dL (0.15-1.2); Total Protein 6.5 g/dL (6.6-8.7)
[2022-09-20 16:37] LABS: Troponin(5th) Baseline 15 ng/L (0-15)
[2022-09-20 16:45] LABS: Troponin 5 2HR 14.43 ng/L (0-15)
[2022-09-20 16:46] LABS: Magnesium 2.2 mg/dL (1.7-2.3); NT Pro B Type Natriuretic Pept 914 pg/mL (0-125)
[2022-09-20 16:49] LABS: Troponin 5 2HR Delta -0.57 ABS# (0-10)
--- NOTE | 2022-09-20 17:44 | ECG_ITS ---
[facility] Test Date: 2022-09-20 Pat Name: Mauro Solis Department: Room: Gender: Male Slide Developer: : 1955 Requested By: Jaxon Vasquez Order Number: [id number] Sandi MD: Patrick Roach M.D. Measurements Intervals [place] Rate: 92 P: 0 WI: 0 QRS: -32 QRSD: 111 T: 110 QT: 363 QTc: 451 Interpretive Statements ATRIAL FIBRILLATION LEFT AXIS DEVIATION [QRS AXIS < -30] LOW QRS VOLTAGE IN PRECORDIAL LEADS [QRS DEFLECTION < 1.0 mV IN CHEST LEADS] RIGHT BUNDLE BRANCH BLOCK [120+ ms QRS DURATION, UPRIGHT V1, 40+ ms S IN I/aVL/V4/V5/V6] ANTEROSEPTAL MYOCARDIAL INFARCTION , OF INDETERMINATE AGE [40+ ms Q WAVE IN V1-V4] Compared to ECG 01/04/2022 22:14:31 Low QRS voltage now present Right bundle-branch block now present Myocardial infarct finding now present Ventricular premature complex(es) no longer present Aberrant conduction of supraventricular beat(s) no longer present Intraventricular conduction delay no longer present Electronically Signed On 09-20-2022 17:51:33 CDT by Patrick Roach M.D. [id number]
--- NOTE | 2022-09-20 18:50 | P.HP_ITS ---
Providers/Chief Complaint Primary Care Provider: Samantha Vinson DO Chief Complaint: Chest Pain, Abnormal Labs History of Present Illness Mauro Solis is a 67 year old male with history of congestive heart failure, uses BiPAP at nighttime, not on oxygen at home, on goal-directed therapy for heart failure follows up with Dr. Roach was sent from cardiology clinic for drop in hemoglobin, he is a Yazdanism, can receive blood transfusion, he gets iron transfusion, he was unable to get EGD appointment however sent to the ER for further evaluation. Patient is stating that he will experiencing chest pain this morning which she describing a pressure-like sensation not associate with shortness of breath. No recent nausea, vomiting or diarrhea. No active chest pain. In the ER he has been diagnosed with acute on chronic anemia, hemodynamically stable, A-fib RVR, troponins negative EKG without infarctive changes. Dr. Sapp consulted for EGD Patient stopped taking his anticoagulating agent yesterday, he is endorsing fatigue and lethargy Review of Systems Const: Reports: fatigue; Denies: fever(s) Eyes: Denies: change in vision ENMT: Denies: throat pain Card: Reports: chest pain Resp: Denies: dyspnea GI: Denies: abdominal pain : Denies: flank pain Musc: Reports: extremity swelling and joint swelling Skin/Breast: Denies: rash Neuro: Denies: headache(s) Psych: Reports: anxiety Medications/Allergies Home Medications Medication Instructions Recorded Confirmed Last Taken Type acyclovir 5 % topical ointment See Rx Instructions .Route .COMPLEX 05/22/19 09/20/22 Unknown History ergocalciferol (vitamin D2) 1,250 50,000 unit PO Q30D 05/22/19 09/20/22 06/07/21 History mcg (50,000 unit) capsule fenofibrate nanocrystallized 145 145 mg PO DAILY 05/22/19 09/20/22 01/04/22 History mg tablet diclofenac sodium 1 % topical gel See Rx Instructions .Route 06/19/19 09/20/22 Unknown History .COMPLEX PRN Pain, Mild blood-glucose meter (Accu-Chek #1 ea 01/21/20 09/08/22 Unknown Rx Guide Glucose Meter) Diabetic shoes with inserts #1 ea 02/04/20 08/22/22 Unknown Rx lancets (Accu-Chek Fastclix Lancet #200 ea 03/04/20 08/22/22 Unknown Rx Drum) ketoconazole 2 % topical cream See Rx Instructions .Route 07/13/20 09/20/22 04/06/21 Rx .COMPLEX #60 grams Diabetic shoes with molded inserts #1 ea 09/14/20 09/08/22 Unknown Rx blood sugar diagnostic (Accu-Chek #300 ea 03/09/21 09/08/22 Unknown Rx Guide test strips) pen needle, diabetic 31 gauge x #100 ea 03/18/21 09/08/22 Unknown Rx 1/ pen needle, diabetic 32 gauge x #100 ea 03/28/21 09/08/22 Unknown Rx (BD Gabriella 2nd Gen Pen Needle) triamcinolone acetonide 0.1 % 1 applic topical BID PRN joint 04/11/21 09/20/22 Unknown History topical cream inflamation acetaminophen 500 mg tablet 1,000 mg PO Q6H PRN Pain 04/21/21 09/20/22 Unknown History (Tylenol Extra Strength) dulaglutide 0.75 mg/0.5 mL 3 mg SUBCUT Q7D 07/08/21 09/20/22 12/30/21 History [facility]) Diabetic shoes with 3 pairs of #1 ea 11/01/21 09/08/22 Unknown Rx inserts ezetimibe 10 mg tablet See Rx Instructions .Route 01/16/22 09/20/22 Unknown Rx .COMPLEX #90 tabs flash glucose scanning reader #1 ea 02/21/22 09/08/22 Unknown Rx (FreeStyle [place] 2 [place]) flash glucose sensor (FreeStyle #6 ea 02/21/22 09/08/22 Unknown Rx Huma 2 Sensor kit) rivaroxaban 20 mg tablet 20 mg PO DAILY #90 tabs 04/04/22 09/20/22 Unknown Rx verapamil 240 mg tablet,extended 240 mg PO DAILY #90 tabs 04/04/22 09/20/22 Unknown Rx release pantoprazole 40 mg tablet,delayed 40 mg PO BID #180 tabs 07/21/22 09/20/22 Unknown Rx release nitroglycerin 0.4 mg sublingual 0.4 mg sublingual DIRECTED PRN 07/26/22 09/20/22 Unknown Rx tablet (Nitrostat) CHEST PAIN #25 tabs allopurinol 100 mg tablet See Rx Instructions .Route 08/15/22 09/20/22 Unknown Rx .COMPLEX #60 tabs bumetanide 1 mg tablet See Rx Instructions PO BID #180 09/08/22 09/20/22 Unknown Rx tabs gabapentin 100 mg capsule 100 mg PO DAILY Pain 09/08/22 09/20/22 Unknown History insulin glargine 100 unit/mL 50 unit (0.5 mL) SUBCUT DAILY #45 09/08/22 09/20/22 Unknown Rx subcutaneous solution (Lantus mL U-100 Insulin) insulin lispro 100 unit/mL 30 unit SUBCUT TID 09/08/22 09/20/22 Unknown History subcutaneous pen (Humalog KwikPen (U-100) Insulin) isosorbide mononitrate 30 mg 60 mg PO DAILY #180 tabs 09/08/22 09/20/22 Unknown Rx tablet,extended release 24 hr eplerenone 25 mg tablet 25 mg PO DAILY #30 tabs 09/11/22 09/20/22 Unknown Rx metoprolol tartrate 50 mg tablet 100 mg PO BID #240 tabs 09/15/22 09/20/22 Unknown Rx iron sucrose 200 mg iron/10 mL 200 mg (10 mL) IV Q3D 5 doses #50 09/20/22 09/20/22 Unknown Rx intravenous solution (Venofer) mL mupirocin 2 % topical ointment 1 applic topical BID PRN 09/20/22 09/20/22 Unknown History sacubitril 49 mg-valsartan 51 mg 1 tab PO BID 4 weeks #56 tabs 09/20/22 09/20/22 Unknown Rx tablet Allergies Allergy/AdvReac Type Severity Reaction Status Date / Time empagliflozin Allergy Severe difficult Verified 09/20/22 07:48 [From Jardiance] breathing linaclotide [From Linzess] Allergy Unknown Hypertension; Verified 09/20/22 07:48 Afib metformin Allergy Unknown ADR-Diarrhe Verified 09/20/22 07:48 a naproxen Allergy Unknown Affects Verified 09/20/22 07:48 kidney fuctions Tmfmota-QXT-ZtS Reductase Allergy Unknown Severe Verified 09/20/22 07:48 Inhibitor Muscle Pain [Gvqwopt-Yti-Mdb Reductase Inhibitor] Sulfa (Sulfonamide Allergy Unknown ADR-Itching Verified 09/20/22 07:48 Antibiotics) baclofen Allergy Affects Verified 09/20/22 07:48 kidney fuctions NSAIDS (Non-Steroidal Allergy Affects Verified 09/20/22 07:48 Anti-Inflamma Kidney functions tramadol AdvReac Intermediate aggression Verified 09/20/22 07:48 PFSH Acute PFSH: Medical History Acute kidney injury superimposed on CKD Anemia Atrial fibrillation on anticoagulation Carpal tunnel syndrome Chest pain Patient underwent coronary angiogram which was normal CKD (chronic kidney disease) stage 3, GFR 30-59 ml/min COVID COVID-19 Dehydration Diabetic neuropathy Diastolic heart failure Diverticulosis Dyspnea External hemorrhoids with complication GERD (gastroesophageal reflux disease) Gout Hyperlipidemia Hypertrophy of uvula Morbid obesity Morbid obesity with BMI of 60.0-69.9, adult Neuropathy LINDA on CPAP Osteoarthritis Otalgia Rectal bleeding Rectal polyp Renal insufficiency Improved after IV fluid Rheumatoid arthritis In remission Seronegative rheumatoid arthritis in remission Stage 3 chronic kidney disease due to diabetes mellitus Substernal thyroid goiter Uncontrolled type 2 diabetes mellitus Ventral incisional hernia Vitamin D deficiency Surgical History History of colonoscopy History of esophagogastroduodenoscopy (EGD) S/P appendectomy S/P carpal tunnel release 2x left S/P cervical disc replacement S/P hernia repair S/P skin cancer resection S/P thyroid surgery S/P tonsillectomy S/P trigger finger release Family History Father Cancer Prostate Hypertension Hypercholesterolemia Heart disease Mother Hypertension Hypercholesterolemia Anesthesia complication Daughter Anesthesia complication Denies family history of Bleeding disorder Social History Smoking and tobacco status: never smoked Alcohol intake: former Substance/Drug Use: never Lives independently: Yes Household members: spouse Marital status: Current occupational status: disabled Alexandra/Gnosticist: Yazdanism Special alexandra needs: Yes Agree to transfusion: No Vitals/I&O/Wt Last Vital Signs Temp 98.0 F 09/20/22 15:12 Pulse 88 09/20/22 15:12 Resp 18 09/20/22 15:12 BP 142/78 05/17/23 15:12 Pulse Ox 97 09/20/22 15:12 O2 Del Method Room Air 09/20/22 15:12 Weight last 48 hrs Weight 181.891 kg Physical Exam Narrative: Morbidly obese Congestive heart failure signs Anasarca Currently on room air A-fib RVR Heart rate 105 Blood pressure stable Currently doing well no active chest pain S1, S2 with systolic murmur Pleasant and cooperative Nonfocal neuro exam GCS 15 Data 09/20/22 13:30 09/20/22 13:30 A&P Assessment and plan (1) Chronic anticoagulation: (2) Low hemoglobin: (3) Melena: (4) Hypertrophy of uvula: (5) CKD (chronic kidney disease) stage 3, GFR 30-59 ml/min: (6) Atrial fibrillation: Qualifiers: Atrial fibrillation type: unspecified chronic Qualified Code(s): I48.20 - Chronic atrial fibrillation, unspecified (7) Diastolic heart failure: Qualifiers: Heart failure chronicity: chronic Qualified Code(s): I50.32 - Chronic diastolic (congestive) heart failure (8) Diabetes type 2, uncontrolled: (9) Retrosternal thyroid goiter: (10) GERD (gastroesophageal reflux disease): (11) Blood transfusion declined because patient is Yazdanism: Plan Acute on chronic anemia Melanotic stool Plan for EGD in the morning We will give him iron Patient is a Yazdanism, can receive blood Diastolic congestive heart exacerbation Dry weight is around 390 pounds Currently above 400 pounds Continue Bumex A-fib RVR continue verapamil and metoprolol Anticoagulation agent on hold Sleep apnea, patient uses BiPAP at nighttime Full code DVT prophylaxis contraindicated Chronic kidney disease: Stable creatinine at this time Uncontrolled diabetes, will use low-dose sliding scale and reduce dose of Lantus Attestations Medical Necessity Statement*: Anticipating discharge within 48 hours Diagnoses Chronic anticoagulation Z79.01 Low hemoglobin D64.9 Melena K92.1 Hypertrophy of uvula K13.79 CKD (chronic kidney disease) stage 3, GFR 30-59 ml/min N18.3 Atrial fibrillation I48.20 Atrial fibrillation type: unspecified chronic Diastolic heart failure I50.32 Heart failure chronicity: chronic Diabetes type 2, uncontrolled Retrosternal thyroid goiter E04.9 GERD (gastroesophageal reflux disease) K21.9 Blood transfusion declined because patient is Yazdanism Z53.1
[2022-09-20 19:21] VITALS: BP 149/91; PULSE 116; RESP 20; O2SAT 96
[2022-09-20 21:15] LABS: Troponin 5 6HR 13.97 ng/L (0-15)
[2022-09-20 21:17] LABS: Troponin 5 6HR Delta -1.03 ng/L (0-12)
--- NOTE | 2022-09-20 21:51 | PC.NURSE ---
Home medications will need to updated in the AM. Patient states I don't have a list, it's on my patient portal.
--- NOTE | 2022-09-20 22:52 | PC.NURSE ---
Addendum entered by Sandy Warren RN 09/20/22 23:34: No new orders. Original Note: Dr. Younger notified of patient asking for Gabapentin and Requip that he takes at home.
[2022-09-20] MEDS: metoprolol tartrate 50 mg Tablet 100 MG PO (23:04)
[2022-09-20] MEDS: pantoprazole 40 mg SDV IVP (23:05)
--- NOTE | 2022-09-20 23:12 | PC.NURSE ---
Patient wears Bipap at home. Dr. Younger ordered Bipap.
[2022-09-20 23:15] VITALS: BP 157/99; PULSE 101; RESP 17; TEMP 36.8; O2SAT 96
[2022-09-20] MEDS: allopurinol 100 mg Tablet 200 MG PO (23:23)
--- NOTE | 2022-09-20 23:29 | ECG_ITS ---
[facility] Test Date: 2022-09-20 Pat Name: Mauro Solis Department: Room: 272 Gender: Male Fuse Coiler: : 1955 Requested By: Jaxon Vasquez Order Number: [id number] Sandi MD: Funmilayo Brown M.D. Measurements Intervals [place] Rate: 120 P: 0 UT: 0 QRS: -50 QRSD: 112 T: 74 QT: 327 QTc: 462 Interpretive Statements ATRIAL FIBRILLATION WITH RAPID VENTRICULAR RESPONSE LEFT AXIS DEVIATION [QRS AXIS < -30] LOW QRS VOLTAGE IN PRECORDIAL LEADS [QRS DEFLECTION < 1.0 mV IN CHEST LEADS] PATTERN CONSISTENT WITH PULMONARY DISEASE RIGHT BUNDLE BRANCH BLOCK [120+ ms QRS DURATION, UPRIGHT V1, 40+ ms S IN I/aVL/V4/V5/V6] SEPTAL MYOCARDIAL INFARCTION , OF INDETERMINATE AGE [40+ ms Q WAVE IN V1/V2] Compared to ECG 09/20/2022 17:44:42 No significant changes Electronically Signed On 09-23-2022 6:57:52 CDT by Funmilayo Brown M.D. [id number]
[2022-09-20 23:40] VITALS: BP 152/82; PULSE 78; RESP 17; TEMP 36.6; O2SAT 98
[2022-09-20 23:46] VITALS: PULSE 104; PULSE 84; RESP 26; O2SAT 100
[2022-09-21] VITALS (13 sets, daily range): BP systolic 108–156; BP diastolic 47–95; PULSE 76–111; RESP 14–29; TEMP 36.3–36.8; O2SAT 92–99
[2022-09-21 05:18] LABS: Basophils # 0.1 10^3/uL (0.0-0.1); Basophils % 0.7 %; Eosinophils # 0.1 10^3/uL (0.0-0.8); Hemoglobin 7.8 g/dL (11.7-16.6); Lymphocytes # 1.4 10^3/uL (0.8-4.8); Lymphocytes % 17.1 %; Mean Corpuscular HGB Conc 26.9 g/dL (30.0-36.0); Mean Corpuscular Hemoglobin 19.7 pg (28.0-34.0); Mean Corpuscular Volume 73.4 fl (80-94); Mean Platelet Volume 9.8 fL (7.4-10.4); Monocytes # 0.7 10^3/uL (0.2-0.9); Monocytes % 7.9 %; Neutrophils # 6.06 10^3/uL (1.8-7.7); Neutrophils % 72.9 %; Nucleated Red Blood Cells % 0 %; Platelet Count 222 10^3/cmm (130-400); Red Blood Count 3.95 10^6/uL (4.1-5.3); Red Cell Distribution Width 17.4 % (12.1-15.1); White Blood Count 8.3 10^3/uL (4.0-10.0)
[2022-09-21 05:35] LABS: Blood Urea Nitrogen 20 mg/dL (8-23); Calcium 8.9 mg/dL (8.5-10.5); Carbon Dioxide 27 mmol/L (22-29); Chloride 103 mmol/L (98-107); Glomerular Filtration Rate 55.1 mL/min (90-130); Glucose 191 mg/dL (65-115); Osmolality Calculated 298 mOsm/kg (285-295); Sodium 140 mmol/L (136-145)
[2022-09-21 06:42] LABS: Glucose Point of Care 236 mg/dL (70-110)
[2022-09-21 07:41] LABS: Glucose Point of Care 209 mg/dL (70-110)
[2022-09-21] MEDS: metoprolol tartrate 50 mg Tablet 100 MG PO (08:33)
[2022-09-21] MEDS: bumetanide 1 mg Tablet PO (08:33)
[2022-09-21] MEDS: sodium chloride 0.9% 1,000 ML 30 ML IV (10:10)
--- NOTE | 2022-09-21 10:19 | ANES.PREANE2 ---
Pre-Anesthetic Assessment Height/Weight: Height 1.78 m Weight 186.965 kg Temp Pulse Resp BP Pulse Ox O2 Del Method FiO2 98.2 F 102 H 20 H 115/63 95 Room Air 23 09/21/22 10:00 09/21/22 10:00 09/21/22 10:00 09/21/22 10:00 09/21/22 10:00 09/21/22 10:00 09/21/22 04:00 Preop Diagnosis: Anemia Operation Date: 09/21/22 10:30 Proposed Procedures p EGD(Not Applicable) - Franklin Sapp DO Familial anesthetic complications: none Last intake: 09/20/22 1230 sip with meds 0900 today Social No alcohol and No tobacco Exam alert, oriented x 3 and clear to auscultation bilaterally Airway Submandibular: within normal limits Cervical ROM: Other (ACDF) Mallampati: Class II Dentition: full Comments: Comments: long uvula scheduled to have it removed. Pulmonary Cough, Sleep Apnea and Shortness of Breath CV/HEM Atrial Fibrillation, Anemia, Stable Angina, Congestive Heart Failure and Hypertension ECHO on chart. Normal EF% Chronic Renal Insufficiency Hepatic fatty liver GI Gastroesophageal Reflux Disease history of esophageal ulcer Metabolic Diabetes Mellitus, Hyperlipidemia, Morbid Obesity and Thyroid Disease (Goiter) Musc/skel Weakness (Cane use prn, walker use prn) Neuropsych Anxiety Anesthetic Plan ASA status: 4 Anesthesia: General Other: Given LINDA, BMI, GERD and A1C a GETA is the best approach with RSI. Medications/Allergies Home Medications Medication Instructions Recorded Confirmed Last Taken Type acyclovir 5 % topical ointment See Rx Instructions .Route .COMPLEX 05/22/19 09/21/22 Unknown History ergocalciferol (vitamin D2) 1,250 50,000 unit PO Q30D 05/22/19 09/21/22 06/07/21 History mcg (50,000 unit) capsule fenofibrate nanocrystallized 145 145 mg PO DAILY 05/22/19 09/21/22 01/04/22 History mg tablet diclofenac sodium 1 % topical gel See Rx Instructions .Route 06/19/19 09/21/22 Unknown History .COMPLEX PRN Pain, Mild blood-glucose meter (Accu-Chek #1 ea 01/21/20 09/21/22 Unknown Rx Guide Glucose Meter) Diabetic shoes with inserts #1 ea 02/04/20 09/21/22 Unknown Rx lancets (Accu-Chek Fastclix Lancet #200 ea 03/04/20 09/21/22 Unknown Rx Drum) ketoconazole 2 % topical cream See Rx Instructions .Route 07/13/20 09/21/22 04/06/21 Rx .COMPLEX #60 grams Diabetic shoes with molded inserts #1 ea 09/14/20 09/21/22 Unknown Rx blood sugar diagnostic (Accu-Chek #300 ea 03/09/21 09/21/22 Unknown Rx Guide test strips) pen needle, diabetic 31 gauge x #100 ea 03/18/21 09/21/22 Unknown Rx 1/ pen needle, diabetic 32 gauge x #100 ea 03/28/21 09/21/22 Unknown Rx (BD Gabriella 2nd Gen Pen Needle) triamcinolone acetonide 0.1 % 1 applic topical BID PRN joint 04/11/21 09/21/22 Unknown History topical cream inflamation acetaminophen 500 mg tablet 1,000 mg PO Q6H PRN Pain 04/21/21 09/21/22 Unknown History (Tylenol Extra Strength) dulaglutide 0.75 mg/0.5 mL 3 mg SUBCUT Q7D 07/08/21 09/21/22 12/30/21 History subcutaneous pen injector (Trulicdusty) Diabetic shoes with 3 pairs of #1 ea 11/01/21 09/21/22 Unknown Rx inserts ezetimibe 10 mg tablet See Rx Instructions .Route 01/16/22 09/21/22 Unknown Rx .COMPLEX #90 tabs flash glucose scanning reader #1 ea 02/21/22 09/21/22 Unknown Rx (FreeStyle Huma 2 [place]) flash glucose sensor (FreeStyle #6 ea 02/21/22 09/21/22 Unknown Rx Huma 2 Sensor kit) rivaroxaban 20 mg tablet 20 mg PO DAILY #90 tabs 04/04/22 09/21/22 Unknown Rx verapamil 240 mg tablet,extended 240 mg PO DAILY #90 tabs 04/04/22 09/21/22 Unknown Rx release pantoprazole 40 mg tablet,delayed 40 mg PO BID #180 tabs 07/21/22 09/21/22 Unknown Rx release nitroglycerin 0.4 mg sublingual 0.4 mg sublingual DIRECTED PRN 07/26/22 09/21/22 Unknown Rx tablet (Nitrostat) CHEST PAIN #25 tabs allopurinol 100 mg tablet See Rx Instructions .Route 08/15/22 09/21/22 Unknown Rx .COMPLEX #60 tabs bumetanide 1 mg tablet See Rx Instructions PO BID #180 09/08/22 09/21/22 Unknown Rx tabs gabapentin 100 mg capsule 100 mg PO DAILY Pain 09/08/22 09/21/22 Unknown History insulin glargine 100 unit/mL 50 unit (0.5 mL) SUBCUT DAILY #45 09/08/22 09/21/22 Unknown Rx subcutaneous solution (Lantus mL U-100 Insulin) insulin lispro 100 unit/mL 30 unit SUBCUT TID 09/08/22 09/21/22 Unknown History subcutaneous pen (Humalog KwikPen (U-100) Insulin) isosorbide mononitrate 30 mg 60 mg PO DAILY #180 tabs 09/08/22 09/21/22 Unknown Rx tablet,extended release 24 hr eplerenone 25 mg tablet 25 mg PO DAILY #30 tabs 09/11/22 09/21/22 Unknown Rx metoprolol tartrate 50 mg tablet 100 mg PO BID #240 tabs 09/15/22 09/21/22 Unknown Rx iron sucrose 200 mg iron/10 mL 200 mg (10 mL) IV Q3D 5 doses #50 09/20/22 09/21/22 Unknown Rx intravenous solution (Venofer) mL mupirocin 2 % topical ointment 1 applic topical BID PRN Rash 09/20/22 09/21/22 Unknown History sacubitril 49 mg-valsartan 51 mg 1 tab PO BID 4 weeks #56 tabs 09/20/22 09/21/22 Unknown Rx tablet clindamycin phosphate 1 % topical 1 applic topical DAILY 09/21/22 09/21/22 Unknown History gel, once daily ropinirole 0.25 mg tablet 0.25 mg PO QPM 09/21/22 09/21/22 Unknown History Allergies Allergy/AdvReac Type Severity Reaction Status Date / Time empagliflozin Allergy Severe difficult Verified 09/21/22 09:01 [From Jardiance] breathing linaclotide [From Linzess] Allergy Unknown Hypertension; Verified 09/21/22 09:01 Afib metformin Allergy Unknown ADR-Diarrhe Verified 09/21/22 09:01 a naproxen Allergy Unknown Affects Verified 09/21/22 09:01 kidney fuctions Qivlpos-KOA-NlY Reductase Allergy Unknown Severe Verified 09/21/22 09:01 Inhibitor Muscle Pain [Mtwjror-Wyw-Xbj Reductase Inhibitor] Sulfa (Sulfonamide Allergy Unknown ADR-Itching Verified 09/21/22 09:01 Antibiotics) baclofen Allergy Affects Verified 09/21/22 09:01 kidney fuctions NSAIDS (Non-Steroidal Allergy Affects Verified 09/21/22 09:01 Anti-Inflamma Kidney functions tramadol AdvReac Intermediate aggression Verified 09/21/22 09:01 Current Medications Generic Name Dose Route Start Last Admin Trade Name Freq PRN Reason Stop Dose Admin Allopurinol 200 mg 09/20/22 23:00 09/20/22 23:23 Allopurinol 100 Mg Tablet PO 200 mg BEDTIME NORA Administration Bumetanide 1 mg 09/21/22 09:00 09/21/22 08:33 Bumetanide 1 Mg Tablet PO 1 mg DAILY NORA Administration Sodium Chloride 1,000 mls @ 30 mls/hr 09/21/22 10:15 09/21/22 10:10 Sodium Chloride 0.9% IV 30 mls/hr .Q24H NORA Administration Insulin Human Lispro 0 unit 09/21/22 08:00 09/21/22 08:32 Insulin Lispro 100 Unit/1 Ml SUBCUT Not Given TIDWM NORA Protocol Metoprolol Tartrate 100 mg 09/20/22 23:00 09/21/22 08:33 Metoprolol Tartrate 50 Mg Tablet PO 100 mg BID NORA Administration Pantoprazole Sodium 40 mg 09/20/22 23:00 09/20/22 23:05 Pantoprazole 40 Mg Sdv IVP 40 mg BID NORA Administration PFSH Anesthesia Medical History Acute kidney injury superimposed on CKD Anemia Atrial fibrillation on anticoagulation Carpal tunnel syndrome Chest pain Patient underwent coronary angiogram which was normal CKD (chronic kidney disease) stage 3, GFR 30-59 ml/min COVID COVID-19 Dehydration Diabetic neuropathy Diastolic heart failure Diverticulosis Dyspnea External hemorrhoids with complication GERD (gastroesophageal reflux disease) Gout Hyperlipidemia Hypertrophy of uvula Morbid obesity Morbid obesity with BMI of 60.0-69.9, adult Neuropathy LINDA on CPAP Osteoarthritis Otalgia Rectal bleeding Rectal polyp Renal insufficiency Improved after IV fluid Rheumatoid arthritis In remission Seronegative rheumatoid arthritis in remission Stage 3 chronic kidney disease due to diabetes mellitus Substernal thyroid goiter Uncontrolled type 2 diabetes mellitus Ventral incisional hernia Vitamin D deficiency Surgical History History of colonoscopy History of esophagogastroduodenoscopy (EGD) S/P appendectomy S/P carpal tunnel release 2x left S/P cervical disc replacement S/P hernia repair S/P skin cancer resection S/P thyroid surgery S/P tonsillectomy S/P trigger finger release Family History Father Cancer Prostate Hypertension Hypercholesterolemia Heart disease Mother Hypertension Hypercholesterolemia Anesthesia complication Daughter Anesthesia complication Denies family history of Bleeding disorder Social History Smoking and tobacco status: never smoked Alcohol intake: former Substance/Drug Use: never Lives independently: Yes Household members: spouse Marital status: Current occupational status: disabled Alexandra/Adventism: [employer]an Special alexandra needs: Yes Agree to transfusion: No Data Anesthesia 09/21/22 04:26 09/21/22 04:26 Short CBC 09/20/22 09/21/22 Range/Units 13:30 04:26 WBC 6.9 8.3 (4.0-10.0) 10^3/uL Hgb 8.6 L 7.8 L (11.7-16.6) g/dL Hct 31.3 L 29.0 L (42.0-52.0) % MCV 73.8 L 73.4 L (80-94) fl Plt Count 243 222 (130-400) 10^3/cmm Neut % (Auto) 70.1 72.9 % Neut # (Auto) 4.81 6.06 (1.8-7.7) 10^3/uL BMP 09/20/22 09/21/22 13:30 04:26 Sodium 138 140 Potassium 3.9 4.0 Chloride 99 103 Carbon Dioxide 27 27 BUN 23 20 Creatinine 1.4 H 1.3 H Glucose 280 H 191 H Calcium 8.9 8.9 Cardiac Enzymes 0509/20/22 09/20/22 Range/Units 13:30 13:30 15:50 Troponin T Baseline 15 (0-15) ng/L Troponin T 120 Minute 14.43 (0-15) ng/L Delta Troponin T -0.57 L (0-10) ABS# Troponin T Hi Sens 6Hr (0-15) ng/L Troponin T Hi Sens 6Hr Delta (0-12) ng/L NT-Pro-B Natriuret Pep 914 H (0-125) pg/mL 09/20/22 Range/Units 19:20 Troponin T Baseline (0-15) ng/L Troponin T 120 Minute (0-15) ng/L Delta Troponin T (0-10) ABS# Troponin T Hi Sens 6Hr 13.97 (0-15) ng/L Troponin T Hi Sens 6Hr Delta -1.03 L (0-12) ng/L NT-Pro-B Natriuret Pep (0-125) pg/mL Liver Function 09/20/22 Range/Units 13:30 Total Bilirubin 0.2 (0.15-1.2) mg/dL AST 17 (0-40) U/L ALT 15 (0-41) U/L Alkaline Phosphatase 53 (40-130) U/L Albumin 4.0 (3.5-5.2) g/dL Coags 09/20/22 13:30 PT 13.70 INR 1.02 APTT 28.1 Cardiac Studies: Echocardiogram 09/11/21
--- NOTE | 2022-09-21 10:42 | P.CONIM_ITS ---
Providers/Reason For Consult Consulting Physician/Specialty*: Dr. Franklin Sapp, DO/General surgery Reason for Consult*: Melena Attending Physician: Orlando Coles MD Primary Care Provider: Samantha Vinson DO History of Present Illness History of Present Illness Mauro Solis is a 67 year old male, normally on rivaroxaban for A-fib, who came to the hospital for chest pain and melena. He is anemic and a Adventism that refuses blood transfusions. He reports that every once while he gets black tarry stools and had some substernal chest pain yesterday. He reports that he has been on Protonix twice daily for years. Despite this he needs to take Tums about 3 times a week. He reports that he does have problems with swallowing because he has an elongated uvula and it feels like food gets stuck in his chest sometimes. His last EGD and colonoscopy were in 2019 and he was told he had polyps at that time. He reports abdominal pain with palpation at a reducible recurrent incisional hernia at his umbilicus. He originally got the hernia following a midline laparotomy incision for appendectomy. The hernia was repaired and has since recurred. Review of Systems General: Reports: 10 or more systems reviewed and unremarkable except in HPI and below Medications/Allergies Home Medications Medication Instructions Recorded Confirmed Last Taken Type acyclovir 5 % topical ointment See Rx Instructions .Route .COMPLEX 05/22/19 09/21/22 Unknown History ergocalciferol (vitamin D2) 1,250 50,000 unit PO Q30D 05/22/19 09/21/22 06/07/21 History mcg (50,000 unit) capsule fenofibrate nanocrystallized 145 145 mg PO DAILY 05/22/19 09/21/22 01/04/22 History mg tablet diclofenac sodium 1 % topical gel See Rx Instructions .Route 06/19/19 09/21/22 Unknown History .COMPLEX PRN Pain, Mild blood-glucose meter (Accu-Chek #1 ea 01/21/20 09/21/22 Unknown Rx Guide Glucose Meter) Diabetic shoes with inserts #1 ea 02/04/20 09/21/22 Unknown Rx lancets (Accu-Chek Fastclix Lancet #200 ea 03/04/20 09/21/22 Unknown Rx Drum) ketoconazole 2 % topical cream See Rx Instructions .Route 07/13/20 09/21/22 04/06/21 Rx .COMPLEX #60 grams Diabetic shoes with molded inserts #1 ea 09/14/20 09/21/22 Unknown Rx blood sugar diagnostic (Accu-Chek #300 ea 03/09/21 09/21/22 Unknown Rx Guide test strips) pen needle, diabetic 31 gauge x #100 ea 03/18/21 09/21/22 Unknown Rx 1/4 pen needle, diabetic 32 gauge x #100 ea 03/28/21 09/21/22 Unknown Rx (BD Gabriella 2nd Gen Pen Needle) triamcinolone acetonide 0.1 % 1 applic topical BID PRN joint 04/11/21 09/21/22 Unknown History topical cream inflamation acetaminophen 500 mg tablet 1,000 mg PO Q6H PRN Pain 04/21/21 09/21/22 Unknown History (Tylenol Extra Strength) dulaglutide 0.75 mg/0.5 mL 3 mg SUBCUT Q7D 07/08/21 09/21/22 12/30/21 History subcutaneous pen injector (Trulicity) Diabetic shoes with 3 pairs of #1 ea 11/01/21 09/21/22 Unknown Rx inserts ezetimibe 10 mg tablet See Rx Instructions .Route 01/16/22 09/21/22 Unknown Rx .COMPLEX #90 tabs flash glucose scanning reader #1 ea 02/21/22 09/21/22 Unknown Rx (FreeStyle Huma 2 [place]) flash glucose sensor (FreeStyle #6 ea 02/21/22 09/21/22 Unknown Rx Huma 2 Sensor kit) rivaroxaban 20 mg tablet 20 mg PO DAILY #90 tabs 04/04/22 09/21/22 Unknown Rx verapamil 240 mg tablet,extended 240 mg PO DAILY #90 tabs 04/04/22 09/21/22 Unknown Rx release pantoprazole 40 mg tablet,delayed 40 mg PO BID #180 tabs 07/21/22 09/21/22 Unknown Rx release nitroglycerin 0.4 mg sublingual 0.4 mg sublingual DIRECTED PRN 07/26/22 09/21/22 Unknown Rx tablet (Nitrostat) CHEST PAIN #25 tabs allopurinol 100 mg tablet See Rx Instructions .Route 08/15/22 09/21/22 Unknown Rx .COMPLEX #60 tabs bumetanide 1 mg tablet See Rx Instructions PO BID #180 09/08/22 09/21/22 Unknown Rx tabs gabapentin 100 mg capsule 100 mg PO DAILY Pain 09/08/22 09/21/22 Unknown History insulin glargine 100 unit/mL 50 unit (0.5 mL) SUBCUT DAILY #45 09/08/22 09/21/22 Unknown Rx subcutaneous solution (Lantus mL U-100 Insulin) insulin lispro 100 unit/mL 30 unit SUBCUT TID 09/08/22 09/21/22 Unknown History subcutaneous pen (Humalog KwikPen (U-100) Insulin) isosorbide mononitrate 30 mg 60 mg PO DAILY #180 tabs 09/08/22 09/21/22 Unknown Rx tablet,extended release 24 hr eplerenone 25 mg tablet 25 mg PO DAILY #30 tabs 09/11/22 09/21/22 Unknown Rx metoprolol tartrate 50 mg tablet 100 mg PO BID #240 tabs 09/15/22 09/21/22 Unknown Rx iron sucrose 200 mg iron/10 mL 200 mg (10 mL) IV Q3D 5 doses #50 09/20/22 09/21/22 Unknown Rx intravenous solution (Venofer) mL mupirocin 2 % topical ointment 1 applic topical BID PRN Rash 09/20/22 09/21/22 Unknown History sacubitril 49 mg-valsartan 51 mg 1 tab PO BID 4 weeks #56 tabs 09/20/22 09/21/22 Unknown Rx tablet clindamycin phosphate 1 % topical 1 applic topical DAILY 09/21/22 09/21/22 Unknown History gel, once daily ropinirole 0.25 mg tablet 0.25 mg PO QPM 09/21/22 09/21/22 Unknown History Allergies Allergy/AdvReac Type Severity Reaction Status Date / Time empagliflozin Allergy Severe difficult Verified 09/21/22 09:01 [From Jardiance] breathing linaclotide [From Linzess] Allergy Unknown Hypertension; Verified 09/21/22 09:01 Afib metformin Allergy Unknown ADR-Diarrhe Verified 09/21/22 09:01 a naproxen Allergy Unknown Affects Verified 09/21/22 09:01 kidney fuctions Xogrzbm-JSO-RaI Reductase Allergy Unknown Severe Verified 09/21/22 09:01 Inhibitor Muscle Pain [Kzqirxr-Vix-Rbk Reductase Inhibitor] Sulfa (Sulfonamide Allergy Unknown ADR-Itching Verified 09/21/22 09:01 Antibiotics) baclofen Allergy Affects Verified 09/21/22 09:01 kidney fuctions NSAIDS (Non-Steroidal Allergy Affects Verified 09/21/22 09:01 Anti-Inflamma Kidney functions tramadol AdvReac Intermediate aggression Verified 09/21/22 09:01 Current Medications Generic Name Dose Route Start Last Admin Trade Name Larry PRN Reason Stop Dose Admin Allopurinol 200 mg 09/20/22 23:00 09/20/22 23:23 Allopurinol 100 Mg Tablet PO 200 mg BEDTIME NORA Administration Bumetanide 1 mg 09/21/22 09:00 09/21/22 08:33 Bumetanide 1 Mg Tablet PO 1 mg DAILY NORA Administration Sodium Chloride 1,000 mls @ 30 mls/hr 09/21/22 10:15 09/21/22 10:10 Sodium Chloride 0.9% IV 30 mls/hr .Q24H NORA Administration Insulin Human Lispro 0 unit 09/21/22 08:00 09/21/22 08:32 Insulin Lispro 100 Unit/1 Ml SUBCUT Not Given TIDWM NORA Protocol Metoprolol Tartrate 100 mg 09/20/22 23:00 09/21/22 08:33 Metoprolol Tartrate 50 Mg Tablet PO 100 mg BID NORA Administration Pantoprazole Sodium 40 mg 09/20/22 23:00 09/20/22 23:05 Pantoprazole 40 Mg Sdv IVP 40 mg BID NORA Administration PFSH Acute PFSH: Medical History Acute kidney injury superimposed on CKD Anemia Atrial fibrillation on anticoagulation Carpal tunnel syndrome Chest pain Patient underwent coronary angiogram which was normal CKD (chronic kidney disease) stage 3, GFR 30-59 ml/min COVID COVID-19 Dehydration Diabetic neuropathy Diastolic heart failure Diverticulosis Dyspnea External hemorrhoids with complication GERD (gastroesophageal reflux disease) Gout Hyperlipidemia Hypertrophy of uvula Morbid obesity Morbid obesity with BMI of 60.0-69.9, adult Neuropathy LINDA on CPAP Osteoarthritis Otalgia Rectal bleeding Rectal polyp Renal insufficiency Improved after IV fluid Rheumatoid arthritis In remission Seronegative rheumatoid arthritis in remission Stage 3 chronic kidney disease due to diabetes mellitus Substernal thyroid goiter Uncontrolled type 2 diabetes mellitus Ventral incisional hernia Vitamin D deficiency Surgical History History of colonoscopy History of esophagogastroduodenoscopy (EGD) S/P appendectomy S/P carpal tunnel release 2x left S/P cervical disc replacement S/P hernia repair S/P skin cancer resection S/P thyroid surgery S/P tonsillectomy S/P trigger finger release Family History Father Cancer Prostate Hypertension Hypercholesterolemia Heart disease Mother Hypertension Hypercholesterolemia Anesthesia complication Daughter Anesthesia complication Denies family history of Bleeding disorder Social History Smoking and tobacco status: never smoked Alcohol intake: former Substance/Drug Use: never Lives independently: Yes Household members: spouse Marital status: Current occupational status: disabled Alexandra/Rastafari: Adventism Special alexandra needs: Yes Agree to transfusion: No Vitals/I&O/Wt Last Vital Signs Temp 98.2 F 09/21/22 10:00 Pulse 102 H 09/21/22 10:00 Resp 20 H 09/21/22 10:00 BP 115/63 09/21/22 10:00 Pulse Ox 95 09/21/22 10:00 O2 Del Method Room Air 09/21/22 10:00 FiO2 23 09/21/22 04:00 09/20/22 09/21/22 09/21/22 22:59 06:59 14:59 Intake Total 620 / 620 Balance 620 / 620 Weight last 48 hrs Weight 412 lb 3 oz Weight 401 lb Physical Exam Narrative: General : Patient is well developed , no acute distress, oriented x3 Head : Normal cephalic, a-traumatic. Ears : Pinnae and external canal are normal. Hearing is normal. Eyes : PERRLA, Sclera and injection are normal. No conjunctival discharge. Nose : Mucous membranes are without erythema. Throat : buccal mucosa is normal, gums are without significant recession or hypertrophy. Lungs : Equal chest rise bilaterally, no use of accessory muscles, trachea is midline. Cor : Rate and rhythm are normal. Abdomen : Soft, ND, tender to palpation over a reducible recurrent incisional hernia at the umbilicus, no g/r/m Extremities : No edema, no cyanosis or clubbing, dorsalis pedis pulses are present bilaterally, non-tender to palpation of calves. Upper extremities are normal bilaterally. Back : non-tender to palpation, no CVA tenderness. Neuro : CN II - XII intact, Upper and lower extremities have equal and full st rength Data 09/21/22 04:26 09/21/22 04:26 A&P Assessment and plan (1) Dysphagia: (2) GERD (gastroesophageal reflux disease): (3) Blood transfusion declined because patient is Adventism: (4) Melena: Plan EGD with possible balloon dilation The risks and benefits of the procedure, including bleeding, infection, intestinal perforation requiring surgery, missed lesion were explained to the patient. The patient is understanding of the risks and wishes to proceed. Medical management per hospitalist Coding Level of Care Code Acute Code for Chg Fwd Diagnoses Dysphagia R13.10 GERD (gastroesophageal reflux disease) K21.9 Blood transfusion declined because patient is Adventism Z53.1 Melena K92.1
--- NOTE | 2022-09-21 11:05 | P.DS_ITS ---
Discharge Providers Date of Admission: 09/20/22 17:40 Date of Discharge: September 21, 2022 Attending Provider at Admission: Orlando Coles MD Attending Provider at Discharge: Orlando Coles MD Primary Care Provider: Samantha Vinson DO Diagnoses at Discharge Discharge Diagnosis (1) Dysphagia: Status: Acute (2) GERD (gastroesophageal reflux disease): Status: Acute (3) Blood transfusion declined because patient is Islam: Status: Acute (4) Melena: Status: Acute Reason for Visit Reason for Visit: Chest Pain, Abnormal Labs Hospital Course Hospital Course 67-year-old male who is a Islam, most sent from cardiology clinic for drop in hemoglobin, he was given iron, hemoglobin 7.8, Dr. 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 He also has diastolic congestive heart failure, does not watch his sodium or fluid intake. He takes Bumex 2 mg in the morning and 1 mg at night. Physical Exam Narrative: Clinical signs of fluid overload Currently patient is on room air Hemodynamic stable Awake alert GCS 15 No audible stridor or wheezing Discharge Data Studies Completed and Pending Completed Studies During Hospitalization Category Date Time Status XR chest 1V portable [id number] Stat Exams 09/20/22 15:51 Completed Pending at discharge Category Date Time Status Pathology: Surgical [PTH] Routine Pth 09/21/22 11:02 Ordered Radiology Impressions Chest X-Ray 09/20/22 15:51 Impression: Cardiomegaly. Laboratory Results WBC 8.3 10^3/uL (4.0-10.0) 09/21/22 04:26 RBC 3.95 10^6/uL (4.1-5.3) L 09/21/22 04:26 Hgb 7.8 g/dL (11.7-16.6) L 09/21/22 04:26 Hct 29.0 % (42.0-52.0) L 09/21/22 04:26 MCV 73.4 fl (80-94) L 09/21/22 04:26 MCH 19.7 pg (28.0-34.0) L 09/21/22 04:26 MCHC 26.9 g/dL (30.0-36.0) L 09/21/22 04:26 RDW 17.4 % (12.1-15.1) H 09/21/22 04:26 Plt Count 222 10^3/cmm (130-400) 09/21/22 04:26 MPV 9.8 fL (7.4-10.4) 09/21/22 04:26 Neut % (Auto) 72.9 % 09/21/22 04:26 Lymph % (Auto) 17.1 % 09/21/22 04:26 [place] % (Auto) 7.9 % 09/21/22 04:26 Eos % (Auto) 1.0 % 09/21/22 04:26 Baso % (Auto) 0.7 % 09/21/22 04:26 Neut # (Auto) 6.06 10^3/uL (1.8-7.7) 09/21/22 04:26 Lymph # (Auto) 1.4 10^3/uL (0.8-4.8) 09/21/22 04:26 [place] # (Auto) 0.7 10^3/uL (0.2-0.9) 09/21/22 04:26 Eos # (Auto) 0.1 10^3/uL (0.0-0.8) 09/21/22 04:26 Baso # (Auto) 0.1 10^3/uL (0.0-0.1) 09/21/22 04:26 Nucleated RBC % (auto) 0 % 09/21/22 04:26 Nucleated RBCs # 0.0 /100WBC 09/21/22 04:26 PT 13.70 SECONDS (12.1-14.9) 09/20/22 13:30 INR 1.02 (0.8-1.2) 09/20/22 13:30 APTT 28.1 SECONDS (23.9-36.7) 09/20/22 13:30 Sodium 140 mmol/L (136-145) 09/21/22 04:26 Potassium 4.0 mmol/L (3.5-5.1) 09/21/22 04:26 Chloride 103 mmol/L (98-107) 09/21/22 04:26 Carbon Dioxide 27 mmol/L (22-29) 09/21/22 04:26 Anion Gap 14.0 (5-19) 09/21/22 04:26 BUN 20 mg/dL (8-23) 09/21/22 04:26 Creatinine 1.3 mg/dL (0.7-1.2) H 09/21/22 04:26 GFR Calculation 55.1 mL/min (90-130) L 09/21/22 04:26 Glucose 191 mg/dL (65-115) H 09/21/22 04:26 POC Glucose 209 mg/dL (70-110) H 09/21/22 07:25 Calculated Osmolality 298 mOsm/kg (285-295) H 09/21/22 04:26 Calcium 8.9 mg/dL (8.5-10.5) 09/21/22 04:26 Magnesium 2.0 mg/dL (1.7-2.3) 09/21/22 04:26 Total Bilirubin 0.2 mg/dL (0.15-1.2) 09/20/22 13:30 AST 17 U/L (0-40) 09/20/22 13:30 ALT 15 U/L (0-41) 09/20/22 13:30 Alkaline Phosphatase 53 U/L (40-130) 09/20/22 13:30 Troponin T Baseline 15 ng/L (0-15) 09/20/22 13:30 Troponin T 120 Minute 14.43 ng/L (0-15) 09/20/22 15:50 Delta Troponin T -0.57 ABS# (0-10) L 09/20/22 15:50 Troponin T Hi Sens 6Hr 13.97 ng/L (0-15) 09/20/22 19:20 Troponin T Hi Sens 6Hr Delta -1.03 ng/L (0-12) L 09/20/22 19:20 NT-Pro-B Natriuret Pep 914 pg/mL (0-125) H 09/20/22 13:30 Total Protein 6.5 g/dL (6.6-8.7) L 09/20/22 13:30 Albumin 4.0 g/dL (3.5-5.2) 09/20/22 13:30 Globulin 2.5 g/dL (1.3-4.6) 09/20/22 13:30 Lipase 86 U/L (13-60) H 09/20/22 13:30 Vitals Last Vital Signs Temp 98.2 F 09/21/22 10:00 Pulse 102 H 09/21/22 10:00 Resp 20 H 09/21/22 10:00 BP 115/63 09/21/22 10:00 Pulse Ox 95 09/21/22 10:00 O2 Del Method Room Air 09/21/22 10:00 FiO2 23 09/21/22 04:00 Discharge Plan Discharge Patient Disposition: Home Condition: Stable Prescriptions: No Action Trulicity 0.75 mg/0.5 mL pen injector 3 mg SUBCUT Q7D Rx Instructions: ON FRIDAYS ([facility] [place]) blood-glucose meter [Accu-Chek Guide Glucose Meter] Misc See Rx Instructions .ROUTE .MEDSUPPLY Qty: 1 0RF Rx Instructions: As directed ([facility] [place]) lancets [Accu-Chek Fastclix Lancet Drum] Misc See Rx Instructions .ROUTE .MEDSUPPLY Qty: 200 3RF Rx Instructions: three times/day ([facility] [place]) Diabetic shoes with molded inserts See Rx Instructions .Route .MEDSUPPLY Qty: 1 0RF Rx Instructions: As directed fenofibrate nanocrystallized 145 mg tablet 145 mg PO DAILY acyclovir 5 % ointment See Rx Instructions .ROUTE .COMPLEX Rx Instructions: aaa topically qid prn ergocalciferol (vitamin D2) 50,000 unit capsule 50,000 unit PO Q30D Rx Instructions: FIRST SUNDAY OF THE MONTH ([facility] [place]) pen needle, diabetic 31 gauge x 1/4 needle See Rx Instructions .Route Qty: 100 3RF Rx Instructions: As directed acetaminophen [Tylenol Extra Strength] 500 mg tablet 1,000 mg PO Q6H PRN (Reason: Pain) mupirocin 2 % ointment 1 applic topical BID PRN (Reason: Rash) (DME) Diabetic shoes with 3 pairs of inserts See Rx Instructions .Route .MEDSUPPLY Qty: 1 0RF Rx Instructions: As directed allopurinol 100 mg tablet See Rx Instructions .ROUTE .COMPLEX Qty: 60 3RF Dose Instruction: Take 2 tablets by mouth once daily Rx Instructions: Take 2 tablets by mouth once daily insulin lispro [Humalog KwikPen Insulin] 100 unit/mL insulin pen 30 unit SUBCUT TID bumetanide 1 mg tablet See Rx Instructions PO BID Qty: 180 3RF Rx Instructions: 2 tab in AM, 1 tab at 2PM orally twice a day; isosorbide mononitrate 30 mg tablet extended release 24 hr 60 mg PO DAILY Qty: 180 1RF sacubitril-valsartan 49-51 mg tablet 1 tab PO BID 28 Days Qty: 56 0RF Venofer 200 mg iron/10 mL solution 200 mg IV Q3D Qty: 50 0RF Rx Instructions: administer over 2-5 mins (DME) Diabetic shoes with inserts See Rx Instructions .Route .MEDSUPPLY Qty: 1 0RF Rx Instructions: As directed ketoconazole 2 % cream See Rx Instructions .ROUTE .COMPLEX Qty: 60 2RF Dose Instruction: APPLY CREAM TOPICALLY TO AFFECTED AREA TWICE DAILY FOR 30 DAYS Rx Instructions: APPLY CREAM TOPICALLY TO AFFECTED AREA TWICE DAILY FOR 30 DAYS (DME) Accu-Chek Guide test strips Strip See Rx Instructions .ROUTE .MEDSUPPLY Qty: 300 3RF Rx Instructions: test blood sugar three times a day ([facility] [place]) pen needle, diabetic [BD Gabriella 2nd Gen Pen Needle] 32 gauge x 5/32 needle See Rx Instructions .Route Qty: 100 3RF Rx Instructions: As directed ezetimibe 10 mg tablet See Rx Instructions .ROUTE .COMPLEX Qty: 90 3RF Dose Instruction: TAKE 1 TABLET BY MOUTH DAILY Rx Instructions: TAKE 1 TABLET BY MOUTH DAILY ([facility] [place]) FreeStyle Huma 2 [place] Misc See Rx Instructions .Route Qty: 1 0RF Rx Instructions: Check BS 4 -6 times a day. ([facility] [place]) FreeStyle Huma 2 Sensor Kit See Rx Instructions .Route Qty: 6 3RF Rx Instructions: Change every 14 days. rivaroxaban 20 mg tablet 20 mg PO DAILY Qty: 90 3RF Hold Instructions: Resume on 04/16/21. verapamil 240 mg tablet extended release 240 mg PO DAILY Qty: 90 3RF pantoprazole 40 mg tablet,delayed release (DR/EC) 40 mg PO BID Qty: 180 2RF nitroglycerin [Nitrostat] 0.4 mg tablet, sublingual 0.4 mg SUBLINGUAL DIRECTED PRN (Reason: CHEST PAIN) Qty: 25 2RF Lantus U-100 Insulin 100 unit/mL solution 50 unit SUBCUT DAILY Qty: 45 0RF eplerenone 25 mg tablet 25 mg PO DAILY Qty: 30 0RF metoprolol tartrate 50 mg tablet 100 mg PO BID Qty: 240 3RF triamcinolone acetonide 0.1 % cream 1 applic topical BID PRN (Reason: joint inflamation) diclofenac sodium 1 % gel See Rx Instructions .ROUTE .COMPLEX PRN (Reason: Pain, Mild) Rx Instructions: 4 grams topically qid prn gabapentin 100 mg capsule 100 mg PO DAILY ropinirole 0.25 mg tablet 0.25 mg PO QPM clindamycin phosphate 1 % gel, once daily 1 applic TOPICAL DAILY Discharge Orders: Discharge Order (Routine); Ordered 09/21/22 Ordered By: Orlando Coles Referrals: Samantha Vinson DO [Primary Care Provider] - Chelsea Chanel MD [Referring] - 1 week (Patient will need laser/argon beam therapy for gastric fundus polyp Islam) Discharge Diet: Soft Mechanical Discharge Activity: Increase activity as tolerated Patient Instructions: GI Discharge Instructions, Opioid Safety Discharge Attestations Time Spent in Discharge Care*: greater than 30 min Quality Metrics Clinical Quality Measures [ No reported AMI, CVA or VTE this stay] Coding Level of Care Code Acute Code for Chg Fwd Diagnoses Dysphagia R13.10 GERD (gastroesophageal reflux disease) K21.9 Blood transfusion declined because patient is Islam Z53.1 Melena K92.1
[2022-09-21] MEDS: cetylpyridinium Lozenge 1 EACH MUCOUS MEM (12:02)
[2022-09-21] MEDS: iron sucrose 500 MG in sodium chloride 0.9% 250 ML 68.8 MG IV (12:03)
--- NOTE | 2022-09-21 13:09 | PC.CHAP ---
Pastoral Care Encounter/Spiritual Assessment Type of Contact [] Declined briefcase sewer visit [] Patient/Family/Request visit [] Outpatient visit [] Follow-up visit [] Physician referral [] Code/Alert [x] Routine visit [] Staff referral [] Actively dying [] Patient sleeping [] Family support [] [] Out of room [] Palliative care [] [x] Receiving care in room [] Pre-surgical visit [] Trauma [] Long length of stay [] ICU visit [] Other: Relational/Emotional Strength [x] Patient feels connected with others/family/visitors/staff [] Distress [] Loneliness/isolation [] Abandonment Spirituality of Patient [xx] Person of Alexandra [] Attends Mandaen of their Alexandra [x] Believes in Prayer [] Reads Bible or Tenriism materials [] There are Spiritual issues to be addressed Side Gluer Interventions [x] Prayer [x] Active listening [x] Non-anxious presence [x] Spiritual/emotional support [] Crisis/trauma care [x] Spiritual counseling [] Bereavement support [] Provided bereavement packet [] Provided Bible/devotional materials [] Provided toy/stuffed animal, coloring book to patient or family member [] Provided Communion [] Anointing/[place] [] Salvation [x] Completed spiritual assessment [] Other: Impact on Illness or Injury [] Angry [] Fearful [] Anxious [] Often cries [] Exhaustion [] Unable to work [] Unable to attend rastafari [] Unable to walk/stand [] Unable to read [] Unable to drive [] Unable to eat/drink [] Unable to sleep [] Unable to be with family [] Patient intubated [] Other: Summary galblader surgery going 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
[2022-09-21 16:36] LABS: Glucose Point of Care 257 mg/dL (70-110)
--- NOTE | 2022-09-21 17:21 | ANE.PACU2 ---
Inpatient post-anesthesia follow up: Airway intact: Yes Vital signs: Temperature 97.9 F Pulse Rate 101 Respiratory Rate 16 Blood Pressure 130/86 Pulse Oximetry 95 Oxygen Delivery Me thod Nasal Cannula Oxygen Flow Rate 2 Fraction of Inspir ed Oxygen 23 Hydration adequate: Yes Nausea and vomiting: No Pain level: 1 Mental status: Baseline
== END 2022-09-21 16:35 | disposition home or self-care (01) ==
LOC: ER 19:28 → MEDSURG 20:45
PROVIDERS: Surgery; Admitting Provider Internal Medicine; Emergency Provider Emergency Medicine; PCP Family Medicine; Visit Provider Internal Medicine
PROC: 0DJ08ZZ Inspection of Upper Intestinal Tract, Via Natural or Artificial Opening Endoscopic (ICD-10-PCS; CPT 43235; principal; 2022-09-21 10:30)
DX: K92.1 Melena (principal); R13.10 Dysphagia, unspecified; Z53.1 Procedure and treatment not carried out because of patient's decision for reasons of belief and group pressure; K21.9 Gastro-esophageal reflux disease without esophagitis; B96.81 Helicobacter pylori [H. pylori] as the cause of diseases classified elsewhere; K29.50 Unspecified chronic gastritis without bleeding; K31.7 Polyp of stomach and duodenum; K31.819 Angiodysplasia of stomach and duodenum without bleeding; I50.32 Chronic diastolic (congestive) heart failure; Z79.01 Long term (current) use of anticoagulants; E11.22 Type 2 diabetes mellitus with diabetic chronic kidney disease; N18.30 Chronic kidney disease, stage 3 unspecified; E11.40 Type 2 diabetes mellitus with diabetic neuropathy, unspecified; D63.1 Anemia in chronic kidney disease; Z79.85 Long-term (current) use of injectable non-insulin antidiabetic drugs; Z79.4 Long term (current) use of insulin; I48.20 Chronic atrial fibrillation, unspecified; Q38.6 Other congenital malformations of mouth; Z86.010 Personal history of colon polyps; K43.2 Incisional hernia without obstruction or gangrene; E66.01 Morbid (severe) obesity due to excess calories; Z68.43 Body mass index [BMI] 50.0-59.9, adult
CPT/HCPCS: 36415; 36416; 43239; 71045; 80048; 80053; 82962; 83690; 83735; 83880; 84484; 85025; 85610; 85730; 88305; 88342; 93005; 94660; 96365; 96366; 96375; 99214; 99285; C9113; G0378; J0330; J1756; J2704; J7030; J7050

== ENCOUNTER → 2022-10-09 10:03 | Outpatient (BNVA) | payer MEDICARE, MEDICAID, SELFPAY | PROVIDERS: PCP Family Medicine; Visit Provider Nurse Practitioner Family | DX: I50.32 Chronic diastolic (congestive) heart failure (principal); I48.20 Chronic atrial fibrillation, unspecified | CPT/HCPCS: 36415; 80048; 83880; 85025; 99214 ==

== ENCOUNTER → 2022-10-10 09:23 | Outpatient (BNVA) | payer MEDICARE, MEDICAID, SELFPAY | PROVIDERS: PCP Family Medicine; Visit Provider Podiatrist Foot & Ankle Surgery | DX: E11.42 Type 2 diabetes mellitus with diabetic polyneuropathy (principal); L60.3 Nail dystrophy; I73.9 Peripheral vascular disease, unspecified; M20.21 Hallux rigidus, right foot; M20.22 Hallux rigidus, left foot; M20.41 Other hammer toe(s) (acquired), right foot; M20.42 Other hammer toe(s) (acquired), left foot; M21.41 Flat foot [pes planus] (acquired), right foot; M21.42 Flat foot [pes planus] (acquired), left foot; Z79.4 Long term (current) use of insulin | CPT/HCPCS: 11721 ==

== ENCOUNTER 2022-10-12 13:22 | Emergency (ER) | payer MEDICARE, MEDICAID, SELFPAY ==
[2022-10-12] VITALS (7 sets, daily range): BP systolic 85–152; BP diastolic 45–88; PULSE 62–72; RESP 18; TEMP 36.7; O2SAT 95–99
--- NOTE | 2022-10-12 13:38 | XR_ITS ---
WS: [id number] Portable AP upright chest, 10/12/2022 Clinical Data: Weakness Comparison: Portable chest, 09/20/2022 Findings: No nodules, masses or effusions are seen. The heart is mildly enlarged. The pulmonary vascu larity is not increased. No pneumonia or pneumothorax is seen. Right diaphragm is slightly elevated. 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 XR/XR chest 1V portable [id number] Impression: Atherosclerosis.
--- NOTE | 2022-10-12 14:08 | W.ED.WEAKNES ---
Documented by User: CHEMA Noriega 10/13/22 12:42 HPI - Weakness General: Chief complaint: Weakness Stated complaint: bloody stool, hypotension Time Seen by Provider: 10/12/22 13:40 History of Present Illness: Patient is a 67-year-old male who comes to the ED with weakness and chest pain. Patient has a past medical history of A-fib, anemia, stage III chronic kidney disease type 2 diabetes, GERD and CHF. Patient was on a blood thinner but was recently taken off of it until he is able to have a scope procedure to remove GI polyp. Patient's generalized weakness has been going on now for several weeks. He also endorses nausea, dizziness and has had some red blood in stool. Patient describes the red blood as visible on the paper when he wipes but no obvious blood in the stool or toilet. His chest pain started earlier this morning while he was at rest and was located on the left side of chest. Upon arrival here to the ED the chest pain has resolved, but he still feels a little bit of chest tightness. Patient is currently on antibiotics for possible stomach ulcer. Patient also endorses a headache and says his headache feels like pressure building up in his head. Associated symptoms: Reports chest pain and headache(s); Denies chills, dysuria, fever(s), nausea or vomiting Review of Systems Const: Reports: fatigue; Denies: fever(s) or chills Eyes: Denies: change in vision or eye discomfort ENMT: Denies: throat pain, odynophagia, nasal discharge or nasal congestion Card: Reports: chest pain; Denies: palpitations, edema, swelling of feet/ankles, dyspnea on exertion or orthopnea Resp: Denies: dyspnea, productive cough or non-productive cough GI: Denies: abdominal pain, nausea, vomiting, diarrhea, constipation or hematochezia : Denies: flank pain, difficulty urinating, dysuria or hematuria Musc: Denies: neck pain, back pain or extremity swelling Skin/Breast: Denies: rash or new lesions Neuro: Reports: headache(s) and dizziness; Denies: numbness in extremities or weakness in extremities PFS ED PFSH: Medical History Acute kidney injury superimposed on CKD Anemia Atrial fibrillation on anticoagulation Blood transfusion declined because patient is Holiness Carpal tunnel syndrome Chest pain Patient underwent coronary angiogram which was normal Chronic anticoagulation CKD (chronic kidney disease) stage 3, GFR 30-59 ml/min COVID COVID-19 Dehydration Diabetes type 2, uncontrolled Diabetic neuropathy Diastolic heart failure Diverticulosis Dysphagia Dyspnea External hemorrhoids with complication GERD (gastroesophageal reflux disease) Gout Hyperlipidemia Hypertrophy of uvula Hypertrophy of uvula Low hemoglobin Melena Morbid obesity Morbid obesity with BMI of 60.0-69.9, adult Neuropathy LINDA on CPAP Osteoarthritis Otalgia Rectal bleeding Rectal polyp Renal insufficiency Improved after IV fluid Retrosternal thyroid goiter Rheumatoid arthritis In remission Seronegative rheumatoid arthritis in remission Stage 3 chronic kidney disease due to diabetes mellitus Substernal thyroid goiter Uncontrolled type 2 diabetes mellitus Ventral incisional hernia Vitamin D deficiency Surgical History History of colonoscopy History of esophagogastroduodenoscopy (EGD) S/P appendectomy S/P carpal tunnel release 2x left S/P cervical disc replacement S/P hernia repair S/P skin cancer resection S/P thyroid surgery S/P tonsillectomy S/P trigger finger release Family History Father Cancer Prostate Hypertension Hypercholesterolemia Heart disease Mother Hypertension Hypercholesterolemia Anesthesia complication Daughter Anesthesia complication Denies family history of Bleeding disorder Social History Smoking and tobacco status: never smoked Alcohol intake: former Substance/Drug Use: never Lives independently: Yes Household members: spouse Marital status: Current occupational status: disabled Alexandra/Spiritism: Holiness Special alexandra needs: Yes Agree to transfusion: No Physical Exam Const: COMMON NORMALS: no acute distress, patient oriented x3 and alert HENMT: COMMON NORMALS: normocephalic HEAD & SCALP: normocephalic MOUTH: Normal oral and palatal mucosa present THROAT: posterior oropharynx normal and uvula midline Eye: COMMON NORMALS: conjunctivae normal GENERAL EYE: appearance normal, both eyes and all related structures CONJUNCTIVA: Yes conjunctivae normal Neck/C-Spine: COMMON NORMALS: supple GENERAL: Yes normal visual inspection Resp: COMMON NORMALS: normal respiratory effort, No retractions, No use of accessory muscles and clear to auscultation bilaterally AUSCULTATION: clear to auscultation bilaterally Cardio: COMMON NORMALS: regular rate, regular rhythm, S1 normal heart sound present, S2 normal heart sound present, No gallops present (Cardio), No clicks present (Cardio), No murmurs present (Cardio) and Peripheral pulses 2+ throughout RATE: regular rate RHYTHM: regular rhythm HEART SOUNDS: S1 normal heart sound present and S2 normal heart sound present PERIPHERAL PULSES: Peripheral pulses 2+ throughout GI: COMMON NORMALS: Normal to inspection, nondistended, normoactive bowel sounds present, Soft to palpation, non-tender and no masses PALPATION: Yes Soft to palpation : COMMON NORMALS: Yes no CVA tenderness BLADDER/KIDNEY EXAM: Yes no CVA tenderness Back/Pelvis: COMMON NORMALS: no CVA tenderness Extremity: COMMON NORMALS: normal to inspection Neuro: COMMON NORMALS: patient oriented x3 SENSORIUM/ORIENTATION: Yes alert GAIT: Yes Normal gait present Skin: GENERAL SKIN EXAM: dry skin Course Vital Signs: Vital signs: Vital Signs Temperature 98.0 F 10/12/22 13:29 Pulse Rate 70 10/12/22 17:37 Respiratory Rate 18 10/12/22 13:29 Blood Pressure 152/74 10/12/22 17:37 Pulse Oximetry 99 10/12/22 17:37 Oxygen Delivery Me thod Room Air 10/12/22 16:30 MDM - Weakness Medical Decision Making Patient is a 67-year-old male who comes to the ED with weakness and chest pain. Patient has a past medical history of A-fib, anemia, stage III chronic kidney disease type 2 diabetes, GERD and CHF. Patient was on a blood thinner but was recently taken off of it until he is able to have a scope procedure to remove GI polyp. Patient's generalized weakness has been going on now for several weeks. He also endorses nausea, dizziness and has had some red blood in stool. Patient describes the red blood as visible on the paper when he wipes but no obvious blood in the stool or toilet. His chest pain started earlier this morning while he was at rest and was located on the left side of chest. Upon arrival here to the ED the chest pain has resolved, but he still feels a little bit of chest tightness. Patient is currently on antibiotics for possible stomach ulcer. Patient also endorses a headache and says his headache feels like pressure building up in his head. Vitals are stable and patient did not have any hypotension here in the ED. Exam shows patient no acute distress or pain sitting comfortably on exam bed. The rest of his exam was benign. Patient hemoglobin of 9.1 which is slightly down from 9.6 back on October 09. Rest of his CBC and CMP were unremarkable. UA was unremarkable. Troponin is negative. EKG showed A-fib with no RVR and no ST segment elevation or depression seen. BNP was 917 which is slightly up from 777 back on October 09. Chest x-ray showed no acute findings. Head CT showed no acute findings. I reviewed patient case with Dr. Morales and he agreed patient was stable for discharge home. Some of his blood pressures at home that were low could likely be due to him starting clarithromycin couple days ago and he is taking a calcium channel nessa which can cause some drops in blood pressure. I told him to contact his power machine operator tomorrow morning to ask them about his verapamil medication while he is taking the clarithromycin for H. pylori. Patient was stable for discharge home and diagnosed with atypical chest pain and anemia. Follow-up with provider as directed. Return to ED precautions given. Patient understood and agreed with plan. Lab Data I reviewed the patient's lab results. 10/12/22 13:45 10/12/22 13:45 Radiology Impressions Chest X-Ray 10/12/22 13:38 Impression: Atherosclerosis. Head CT 10/12/22 14:12 IMPRESSION: 1. No evidence of intracranial hemorrhage or mass effect. 2. Mild small vessel changes. Mild parenchymal volume loss. 3. No acute intracranial findings. Laboratory Results WBC 7.7 10^3/uL (4.0-10.0) 10/12/22 13:45 RBC 4.37 10^6/uL (4.1-5.3) 10/12/22 13:45 Hgb 9.1 g/dL (11.7-16.6) L 10/12/22 13:45 Hct 33.0 % (42.0-52.0) L 10/12/22 13:45 MCV 75.5 fl (80-94) L 10/12/22 13:45 MCH 20.8 pg (28.0-34.0) L 10/12/22 13:45 MCHC 27.6 g/dL (30.0-36.0) L 10/12/22 13:45 RDW 20.2 % (12.1-15.1) H 10/12/22 13:45 Plt Count 263 10^3/cmm (130-400) 10/12/22 13:45 MPV 10.0 fL (7.4-10.4) 10/12/22 13:45 Neut % (Auto) 76.0 % 10/12/22 13:45 Lymph % (Auto) 13.9 % 10/12/22 13:45 Rice % (Auto) 7.0 % 10/12/22 13:45 Eos % (Auto) 1.6 % 10/12/22 13:45 Baso % (Auto) 1.0 % 10/12/22 13:45 Neut # (Auto) 5.87 10^3/uL (1.8-7.7) 10/12/22 13:45 Lymph # (Auto) 1.1 10^3/uL (0.8-4.8) 10/12/22 13:45 Rice # (Auto) 0.5 10^3/uL (0.2-0.9) 10/12/22 13:45 Eos # (Auto) 0.1 10^3/uL (0.0-0.8) 10/12/22 13:45 Baso # (Auto) 0.1 10^3/uL (0.0-0.1) 10/12/22 13:45 Nucleated RBC % (auto) 0.3 % 10/12/22 13:45 Nucleated RBCs # 0.0 /100WBC 10/12/22 13:45 PT 14.40 SECONDS (12.1-14.9) 10/12/22 14:20 INR 1.09 (0.8-1.2) 10/12/22 14:20 APTT 27.8 SECONDS (23.9-36.7) 10/12/22 14:20 Sodium 134 mmol/L (136-145) L 10/12/22 13:45 Potassium 4.0 mmol/L (3.5-5.1) 10/12/22 13:45 Chloride 98 mmol/L (98-107) 10/12/22 13:45 Carbon Dioxide 21 mmol/L (22-29) L 10/12/22 13:45 Anion Gap 19.0 (5-19) 10/12/22 13:45 BUN 29 mg/dL (8-23) H 10/12/22 13:45 Creatinine 1.5 mg/dL (0.7-1.2) H 10/12/22 13:45 GFR Calculation 46.7 mL/min (90-130) L 10/12/22 13:45 Glucose 270 mg/dL (65-115) H 10/12/22 13:45 Calculated Osmolality 293 mOsm/kg (285-295) 10/12/22 13:45 Calcium 8.0 mg/dL (8.5-10.5) L 10/12/22 13:45 Total Bilirubin 0.3 mg/dL (0.15-1.2) 10/12/22 13:45 AST 22 U/L (0-40) 10/12/22 13:45 ALT 11 U/L (0-41) 10/12/22 13:45 Alkaline Phosphatase 52 U/L (40-130) 10/12/22 13:45 Troponin T Baseline 15 ng/L (0-15) 10/12/22 13:45 Troponin T 120 Minute 18.12 ng/L (0-15) H 10/12/22 15:27 Delta Troponin T 3.12 ABS# (0-10) 10/12/22 15:27 NT-Pro-B Natriuret Pep 917 pg/mL (0-125) H 10/12/22 13:45 Total Protein 5.4 g/dL (6.6-8.7) L 10/12/22 13:45 Albumin 3.6 g/dL (3.5-5.2) 10/12/22 13:45 Globulin 1.8 g/dL (1.3-4.6) 10/12/22 13:45 Lipase 78 U/L (13-60) H 10/12/22 13:45 Urine Color Yellow (Yellow) 10/12/22 16:10 Urine Appearance Sl hazy (CLEAR) A 10/12/22 16:10 Urine pH 5 (5-7) 10/12/22 16:10 Ur Specific Igo 1.020 (1.005-1.030) 10/12/22 16:10 Urine Protein 1+ (Negative) H 10/12/22 16:10 Urine Glucose (UA) Norm (Normal) 10/12/22 16:10 Urine Ketones Negative (Negative) 10/12/22 16:10 Urine Blood Neg (Negative) 10/12/22 16:10 Urine Nitrate Negative (Negative) 10/12/22 16:10 Urine Bilirubin Neg (Negative) 10/12/22 16:10 Urine Urobilinogen Norm mg/dL (Negative) 10/12/22 16:10 Ur Leukocyte Esterase Negative (Negative) 10/12/22 16:10 Urine RBC Rare /hpf (0-2) 10/12/22 16:10 Urine WBC 0-4 /hpf (0-5) H 10/12/22 16:10 Ur Squamous Epith Cells Rare /hpf (0-5) 10/12/22 16:10 Amorphous Sediment Trace /hpf 10/12/22 16:10 Urine Bacteria 1+ /hpf (NONE) H 10/12/22 16:10 Hyaline Casts 0-4 /lpf H 10/12/22 16:10 Fine Granular Casts 0-4 /lpf H 10/12/22 16:10 Other Casts 0-4 /lpf 10/12/22 16:10 EKG Data EKG 1: EKG interpretation date: 10/12/22 Interpretation: A-fib with no RVR, 57 bpm, no ST segment elevation or depression seen. Discharge Plan Discharge Patient Disposition: Home Clinical Impression: Atypical chest pain, Anemia Condition: Stable Prescriptions: No Action Trulicity 0.75 mg/0.5 mL pen injector 3 mg SUBCUT Q7D Rx Instructions: ON FRIDAYS (DME) blood-glucose meter [Accu-Chek Guide Glucose Meter] Misc See Rx Instructions .ROUTE .MEDSUPPLY Qty: 1 0RF Rx Instructions: As directed (DME) lancets [Accu-Chek Fastclix Lancet Drum] Misc See Rx Instructions .ROUTE .MEDSUPPLY Qty: 200 3RF Rx Instructions: three times/day (DME) Diabetic shoes with molded inserts See Rx Instructions .Route .MEDSUPPLY Qty: 1 0RF Rx Instructions: As directed fenofibrate nanocrystallized 145 mg tablet 145 mg PO DAILY acyclovir 5 % ointment See Rx Instructions .ROUTE .COMPLEX Rx Instructions: aaa topically qid prn ergocalciferol (vitamin D2) 50,000 unit capsule 50,000 unit PO Q30D Rx Instructions: FIRST SUNDAY OF THE MONTH (DME) pen needle, diabetic 31 gauge x 1/4 needle See Rx Instructions .Route Qty: 100 3RF Rx Instructions: As directed acetaminophen [Tylenol Extra Strength] 500 mg tablet 1,000 mg PO Q6H PRN (Reason: Pain) mupirocin 2 % ointment 1 applic topical BID PRN (Reason: Rash) (DME) Diabetic shoes with 3 pairs of inserts See Rx Instructions .Route .MEDSUPPLY Qty: 1 0RF Rx Instructions: As directed ferrous sulfate [Felipe-In-Terri] 15 mg iron (75 mg)/mL drops 1 ml PO .Sun Qty: 50 0RF bumetanide 1 mg tablet See Rx Instructions PO BID Qty: 180 3RF Rx Instructions: 2 tab in AM, 1 tab at 2PM orally twice a day; isosorbide mononitrate 30 mg tablet extended release 24 hr 60 mg PO DAILY Qty: 180 1RF (DME) Diabetic shoes with inserts See Rx Instructions .Route .MEDSUPPLY Qty: 1 0RF Rx Instructions: As directed ketoconazole 2 % cream See Rx Instructions .ROUTE .COMPLEX Qty: 60 2RF Dose Instruction: APPLY CREAM TOPICALLY TO AFFECTED AREA TWICE DAILY FOR 30 DAYS Rx Instructions: APPLY CREAM TOPICALLY TO AFFECTED AREA TWICE DAILY FOR 30 DAYS (DME) Accu-Chek Guide test strips Strip See Rx Instructions .ROUTE .MEDSUPPLY Qty: 300 3RF Rx Instructions: test blood sugar three times a day (DME) pen needle, diabetic [BD Gabriella 2nd Gen Pen Needle] 32 gauge x 5/32 needle See Rx Instructions .Route Qty: 100 3RF Rx Instructions: As directed (DME) FreeStyle Huma 2 [place] Misc See Rx Instructions .Route Qty: 1 0RF Rx Instructions: Check BS 4 -6 times a day. (DME) FreeStyle Huma 2 Sensor Kit See Rx Instructions .Route Qty: 6 3RF Rx Instructions: Change every 14 days. rivaroxaban 20 mg tablet 20 mg PO DAILY Qty: 90 3RF Hold Instructions: Resume on 04/16/21. verapamil 240 mg tablet extended release 240 mg PO DAILY Qty: 90 3RF Hold Instructions: Dose Change nitroglycerin [Nitrostat] 0.4 mg tablet, sublingual 0.4 mg SUBLINGUAL DIRECTED PRN (Reason: CHEST PAIN) Qty: 25 2RF eplerenone 25 mg tablet 25 mg PO DAILY Qty: 30 0RF metoprolol tartrate 50 mg tablet 100 mg PO BID Qty: 240 3RF sacubitril-valsartan 49-51 mg tablet 1 tab PO BID 28 Days Qty: 56 0RF clarithromycin 500 mg tablet 500 mg PO BID 14 Days Qty: 28 0RF pantoprazole [Protonix] 40 mg tablet,delayed release (DR/EC) 40 mg PO BID 14 Days Qty: 28 0RF amoxicillin 500 mg capsule 1,000 mg PO BID 14 Days Qty: 56 0RF verapamil 180 mg capsule,ext rel. pellets 24 hr 180 mg PO DAILY Qty: 14 0RF Rx Instructions: dose reduced while on clarithromycin triamcinolone acetonide 0.1 % cream 1 applic topical BID PRN (Reason: joint inflamation) diclofenac sodium 1 % gel See Rx Instructions .ROUTE .COMPLEX PRN (Reason: Pain, Mild) Rx Instructions: 4 grams topically qid prn gabapentin 100 mg capsule 100 mg PO DAILY ropinirole 0.25 mg tablet 0.25 mg PO QPM clindamycin phosphate 1 % gel, once daily 1 applic TOPICAL DAILY Lantus U-100 Insulin 100 unit/mL solution 60 unit SUBCUT DAILY allopurinol 100 mg tablet 200 mg PO DAILY Humalog KwikPen Insulin 100 unit/mL insulin pen 40 unit SUBCUT TID ezetimibe 10 mg tablet 10 mg PO DAILY Discharge Orders: Discharge ED (Routine); Ordered 10/12/22 Ordered By: Fabrizio Das Referrals: Samantha Vinson DO [Primary Care Provider] - Discharge Diet: Regular Discharge Activity: Increase activity as tolerated Patient Instructions: Chest Pain (ED), Anemia (ED) Activity Restrictions/Additional Instructions: Follow-up with medical provider as directed. 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 Continue taking all home medications as previously prescribed. Return to the ER or your medical provider if condition worsens. Please read and understand discharge instructions. Thank you for choosing [facility] for your healthcare needs today. Please realize this is an emergency room and that we are providing you with a medical screening exam and this may not be complete and all inclusive of all the testing and or work up that you may need to determine your ailment or severity of your illness. It is very important that you follow up as instructed or that you return to the Emergency Department should you have concerns or if your condition changes or worsens in any way. Coding Level of Care Code ED Tax Compliance Representative for Chg Fwd Documented by User: Qamar Morales DO 10/13/22 13:03 HPI - Weakness General: Chief complaint: Weakness Stated complaint: bloody stool, hypotension Time Seen by Provider: 10/12/22 13:40 PFSH ED PFSH: Medical History Acute kidney injury superimposed on CKD Anemia Atrial fibrillation on anticoagulation Blood transfusion declined because patient is Holiness Carpal tunnel syndrome Chest pain Patient underwent coronary angiogram which was normal Chronic anticoagulation CKD (chronic kidney disease) stage 3, GFR 30-59 ml/min COVID COVID-19 Dehydration Diabetes type 2, uncontrolled Diabetic neuropathy Diastolic heart failure Diverticulosis Dysphagia Dyspnea External hemorrhoids with complication GERD (gastroesophageal reflux disease) Gout Hyperlipidemia Hypertrophy of uvula Hypertrophy of uvula Low hemoglobin Melena Morbid obesity Morbid obesity with BMI of 60.0-69.9, adult Neuropathy LINDA on CPAP Osteoarthritis Otalgia Rectal bleeding Rectal polyp Renal insufficiency Improved after IV fluid Retrosternal thyroid goiter Rheumatoid arthritis In remission Seronegative rheumatoid arthritis in remission Stage 3 chronic kidney disease due to diabetes mellitus Substernal thyroid goiter Uncontrolled type 2 diabetes mellitus Ventral incisional hernia Vitamin D deficiency Surgical History History of colonoscopy History of esophagogastroduodenoscopy (EGD) S/P appendectomy S/P carpal tunnel release 2x left S/P cervical disc replacement S/P hernia repair S/P skin cancer resection S/P thyroid surgery S/P tonsillectomy S/P trigger finger release Family History Father Cancer Prostate Hypertension Hypercholesterolemia Heart disease Mother Hypertension Hypercholesterolemia Anesthesia complication Daughter Anesthesia complication Denies family history of Bleeding disorder Social History Smoking and tobacco status: never smoked Alcohol intake: former Substance/Drug Use: never Lives independently: Yes Household members: spouse Marital status: Current occupational status: disabled Alexandra/Spiritism: Holiness Special alexandra needs: Yes Agree to transfusion: No Course Vital Signs: Vital signs: Vital Signs Temperature 98.0 F 10/12/22 13:29 Pulse Rate 70 10/12/22 17:37 Respiratory Rate 18 10/12/22 13:29 Blood Pressure 152/74 10/12/22 17:37 Pulse Oximetry 99 10/12/22 17:37 Oxygen Delivery Me thod Room Air 10/12/22 16:30 MDM - Weakness Medical Decision Making Patient is a 67-year-old male who comes to the ED with weakness and chest pain. Patient has a past medical history of A-fib, anemia, stage III chronic kidney disease type 2 diabetes, GERD and CHF. Patient was on a blood thinner but was recently taken off of it until he is able to have a scope procedure to remove GI polyp. Patient's generalized weakness has been going on now for several weeks. He also endorses nausea, dizziness and has had some red blood in stool. Patient describes the red blood as visible on the paper when he wipes but no obvious blood in the stool or toilet. His chest pain started earlier this morning while he was at rest and was located on the left side of chest. Upon arrival here to the ED the chest pain has resolved, but he still feels a little bit of chest tightness. Patient is currently on antibiotics for possible stomach ulcer. Patient also endorses a headache and says his headache feels like pressure building up in his head. Vitals are stable and patient did not have any hypotension here in the ED. Exam shows patient no acute distress or pain sitting comfortably on exam bed. The rest of his exam was benign. Patient hemoglobin of 9.1 which is slightly down from 9.6 back on October 09. Rest of his CBC and CMP were unremarkable. UA was unremarkable. Troponin is negative. EKG showed A-fib with no RVR and no ST segment elevation or depression seen. BNP was 917 which is slightly up from 777 back on October 09. Chest x-ray showed no acute findings. Head CT showed no acute findings. I reviewed patient case with Dr. Morales and he agreed patient was stable for discharge home. Some of his blood pressures at home that were low could likely be due to him starting clarithromycin couple days ago and he is taking a calcium channel nessa which can cause some drops in blood pressure. I told him to contact his power machine operator tomorrow morning to ask them about his verapamil medication while he is taking the clarithromycin for H. pylori. Patient was stable for discharge home and diagnosed with atypical chest pain and anemia. Follow-up with provider as directed. Return to ED precautions given. Patient understood and agreed with plan. Chart reviewed and patient discussed with midlevel. Agree with assessment and plan. Lab Data 10/12/22 13:45 10/12/22 13:45 Radiology Impressions Chest X-Ray 10/12/22 13:38 Impression: Atherosclerosis. Head CT 10/12/22 14:12 IMPRESSION: 1. No evidence of intracranial hemorrhage or mass effect. 2. Mild small vessel changes. Mild parenchymal volume loss. 3. No acute intracranial findings. Laboratory Results WBC 7.7 10^3/uL (4.0-10.0) 10/12/22 13:45 RBC 4.37 10^6/uL (4.1-5.3) 10/12/22 13:45 Hgb 9.1 g/dL (11.7-16.6) L 10/12/22 13:45 Hct 33.0 % (42.0-52.0) L 10/12/22 13:45 MCV 75.5 fl (80-94) L 10/12/22 13:45 MCH 20.8 pg (28.0-34.0) L 10/12/22 13:45 MCHC 27.6 g/dL (30.0-36.0) L 10/12/22 13:45 RDW 20.2 % (12.1-15.1) H 10/12/22 13:45 Plt Count 263 10^3/cmm (130-400) 10/12/22 13:45 MPV 10.0 fL (7.4-10.4) 10/12/22 13:45 Neut % (Auto) 76.0 % 10/12/22 13:45 Lymph % (Auto) 13.9 % 10/12/22 13:45 Rice % (Auto) 7.0 % 10/12/22 13:45 Eos % (Auto) 1.6 % 10/12/22 13:45 Baso % (Auto) 1.0 % 10/12/22 13:45 Neut # (Auto) 5.87 10^3/uL (1.8-7.7) 10/12/22 13:45 Lymph # (Auto) 1.1 10^3/uL (0.8-4.8) 10/12/22 13:45 Rice # (Auto) 0.5 10^3/uL (0.2-0.9) 10/12/22 13:45 Eos # (Auto) 0.1 10^3/uL (0.0-0.8) 10/12/22 13:45 Baso # (Auto) 0.1 10^3/uL (0.0-0.1) 10/12/22 13:45 Nucleated RBC % (auto) 0.3 % 10/12/22 13:45 Nucleated RBCs # 0.0 /100WBC 10/12/22 13:45 PT 14.40 SECONDS (12.1-14.9) 10/12/22 14:20 INR 1.09 (0.8-1.2) 10/12/22 14:20 APTT 27.8 SECONDS (23.9-36.7) 10/12/22 14:20 Sodium 134 mmol/L (136-145) L 10/12/22 13:45 Potassium 4.0 mmol/L (3.5-5.1) 10/12/22 13:45 Chloride 98 mmol/L (98-107) 10/12/22 13:45 Carbon Dioxide 21 mmol/L (22-29) L 10/12/22 13:45 Anion Gap 19.0 (5-19) 10/12/22 13:45 BUN 29 mg/dL (8-23) H 10/12/22 13:45 Creatinine 1.5 mg/dL (0.7-1.2) H 10/12/22 13:45 GFR Calculation 46.7 mL/min (90-130) L 10/12/22 13:45 Glucose 270 mg/dL (65-115) H 10/12/22 13:45 Calculated Osmolality 293 mOsm/kg (285-295) 10/12/22 13:45 Calcium 8.0 mg/dL (8.5-10.5) L 10/12/22 13:45 Total Bilirubin 0.3 mg/dL (0.15-1.2) 10/12/22 13:45 AST 22 U/L (0-40) 10/12/22 13:45 ALT 11 U/L (0-41) 10/12/22 13:45 Alkaline Phosphatase 52 U/L (40-130) 10/12/22 13:45 Troponin T Baseline 15 ng/L (0-15) 10/12/22 13:45 Troponin T 120 Minute 18.12 ng/L (0-15) H 10/12/22 15:27 Delta Troponin T 3.12 ABS# (0-10) 10/12/22 15:27 NT-Pro-B Natriuret Pep 917 pg/mL (0-125) H 10/12/22 13:45 Total Protein 5.4 g/dL (6.6-8.7) L 10/12/22 13:45 Albumin 3.6 g/dL (3.5-5.2) 10/12/22 13:45 Globulin 1.8 g/dL (1.3-4.6) 10/12/22 13:45 Lipase 78 U/L (13-60) H 10/12/22 13:45 Urine Color Yellow (Yellow) 10/12/22 16:10 Urine Appearance Sl hazy (CLEAR) A 10/12/22 16:10 Urine pH 5 (5-7) 10/12/22 16:10 Ur Specific Igo 1.020 (1.005-1.030) 10/12/22 16:10 Urine Protein 1+ (Negative) H 10/12/22 16:10 Urine Glucose (UA) Norm (Normal) 10/12/22 16:10 Urine Ketones Negative (Negative) 10/12/22 16:10 Urine Blood Neg (Negative) 10/12/22 16:10 Urine Nitrate Negative (Negative) 10/12/22 16:10 Urine Bilirubin Neg (Negative) 10/12/22 16:10 Urine Urobilinogen Norm mg/dL (Negative) 10/12/22 16:10 Ur Leukocyte Esterase Negative (Negative) 10/12/22 16:10 Urine RBC Rare /hpf (0-2) 10/12/22 16:10 Urine WBC 0-4 /hpf (0-5) H 10/12/22 16:10 Ur Squamous Epith Cells Rare /hpf (0-5) 10/12/22 16:10 Amorphous Sediment Trace /hpf 10/12/22 16:10 Urine Bacteria 1+ /hpf (NONE) H 10/12/22 16:10 Hyaline Casts 0-4 /lpf H 10/12/22 16:10 Fine Granular Casts 0-4 /lpf H 10/12/22 16:10 Other Casts 0-4 /lpf 10/12/22 16:10 Discharge Plan Discharge Patient Disposition: Home Clinical Impression: Atypical chest pain, Anemia Condition: Stable Prescriptions: No Action Trulicity 0.75 mg/0.5 mL pen injector 3 mg SUBCUT Q7D Rx Instructions: ON FRIDAYS (DME) blood-glucose meter [Accu-Chek Guide Glucose Meter] Misc See Rx Instructions .ROUTE .MEDSUPPLY Qty: 1 0RF Rx Instructions: As directed (DME) lancets [Accu-Chek Fastclix Lancet Drum] Misc See Rx Instructions .ROUTE .MEDSUPPLY Qty: 200 3RF Rx Instructions: three times/day (DME) Diabetic shoes with molded inserts See Rx Instructions .Route .MEDSUPPLY Qty: 1 0RF Rx Instructions: As directed fenofibrate nanocrystallized 145 mg tablet 145 mg PO DAILY acyclovir 5 % ointment See Rx Instructions .ROUTE .COMPLEX Rx Instructions: aaa topically qid prn ergocalciferol (vitamin D2) 50,000 unit capsule 50,000 unit PO Q30D Rx Instructions: FIRST SUNDAY OF THE MONTH (DME) pen needle, diabetic 31 gauge x 1/4 needle See Rx Instructions .Route Qty: 100 3RF Rx Instructions: As directed acetaminophen [Tylenol Extra Strength] 500 mg tablet 1,000 mg PO Q6H PRN (Reason: Pain) mupirocin 2 % ointment 1 applic topical BID PRN (Reason: Rash) (DME) Diabetic shoes with 3 pairs of inserts See Rx Instructions .Route .MEDSUPPLY Qty: 1 0RF Rx Instructions: As directed ferrous sulfate [Felipe-In-Terri] 15 mg iron (75 mg)/mL drops 1 ml PO .Sun Qty: 50 0RF bumetanide 1 mg tablet See Rx Instructions PO BID Qty: 180 3RF Rx Instructions: 2 tab in AM, 1 tab at 2PM orally twice a day; isosorbide mononitrate 30 mg tablet extended release 24 hr 60 mg PO DAILY Qty: 180 1RF (DME) Diabetic shoes with inserts See Rx Instructions .Route .MEDSUPPLY Qty: 1 0RF Rx Instructions: As directed ketoconazole 2 % cream See Rx Instructions .ROUTE .COMPLEX Qty: 60 2RF Dose Instruction: APPLY CREAM TOPICALLY TO AFFECTED AREA TWICE DAILY FOR 30 DAYS Rx Instructions: APPLY CREAM TOPICALLY TO AFFECTED AREA TWICE DAILY FOR 30 DAYS (DME) Accu-Chek Guide test strips Strip See Rx Instructions .ROUTE .MEDSUPPLY Qty: 300 3RF Rx Instructions: test blood sugar three times a day (DME) pen needle, diabetic [BD Gabriella 2nd Gen Pen Needle] 32 gauge x 5/32 needle See Rx Instructions .Route Qty: 100 3RF Rx Instructions: As directed (DME) FreeStyle Huma 2 [place] Misc See Rx Instructions .Route Qty: 1 0RF Rx Instructions: [place] BS 4 -6 times a day. [place] [place] Sensor Kit See Rx Instructions .Route Qty: 6 3RF Rx Instructions: Change every 14 days. rivaroxaban 20 mg tablet 20 mg PO DAILY Qty: 90 3RF Hold Instructions: Resume on 04/16/21. verapamil 240 mg tablet extended release 240 mg PO DAILY Qty: 90 3RF Hold Instructions: Dose Change nitroglycerin [Nitrostat] 0.4 mg tablet, sublingual 0.4 mg SUBLINGUAL DIRECTED PRN (Reason: CHEST PAIN) Qty: 25 2RF eplerenone 25 mg tablet 25 mg PO DAILY Qty: 30 0RF metoprolol tartrate 50 mg tablet 100 mg PO BID Qty: 240 3RF sacubitril-valsartan 49-51 mg tablet 1 tab PO BID 28 Days Qty: 56 0RF clarithromycin 500 mg tablet 500 mg PO BID 14 Days Qty: 28 0RF pantoprazole [Protonix] 40 mg tablet,delayed release (DR/EC) 40 mg PO BID 14 Days Qty: 28 0RF amoxicillin 500 mg capsule 1,000 mg PO BID 14 Days Qty: 56 0RF verapamil 180 mg capsule,ext rel. pellets 24 hr 180 mg PO DAILY Qty: 14 0RF Rx Instructions: dose reduced while on clarithromycin triamcinolone acetonide 0.1 % cream 1 applic topical BID PRN (Reason: joint inflamation) diclofenac sodium 1 % gel See Rx Instructions .ROUTE .COMPLEX PRN (Reason: Pain, Mild) Rx Instructions: 4 grams topically qid prn gabapentin 100 mg capsule 100 mg PO DAILY ropinirole 0.25 mg tablet 0.25 mg PO QPM clindamycin phosphate 1 % gel, once daily 1 applic TOPICAL DAILY Lantus U-100 Insulin 100 unit/mL solution 60 unit SUBCUT DAILY allopurinol 100 mg tablet 200 mg PO DAILY Humalog KwikPen Insulin 100 unit/mL insulin pen 40 unit SUBCUT TID ezetimibe 10 mg tablet 10 mg PO DAILY Discharge Orders: Discharge ED (Routine); Ordered 10/12/22 Ordered By: Fabrizio Das Referrals: Samantha Vinson DO [Primary Care Provider] - Discharge Diet: Regular Discharge Activity: Increase activity as tolerated Patient Instructions: Chest Pain (ED), Anemia (ED) Activity Restrictions/Additional Instructions: Follow-up with medical provider as directed. 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 Continue taking all home medications as previously prescribed. Return to the ER or your medical provider if condition worsens. Please read and understand discharge instructions. Thank you for choosing [facility] for your healthcare needs today. Please realize this is an emergency room and that we are providing you with a medical screening exam and this may not be complete and all inclusive of all the testing and or work up that you may need to determine your ailment or severity of your illness. It is very important that you follow up as instructed or that you return to the Emergency Department should you have concerns or if your condition changes or worsens in any way. Coding Level of Care Code ED Tax Compliance Representative for Marcelle Bang
--- NOTE | 2022-10-12 14:12 | CT_ITS ---
WS: [id number] CT HEAD TECHNIQUE: Noncontrast CT of the head obtained from the skullbase to the vertex. CLINICAL INFORMATION: dizziness and headache COMPARISON: 2020 DLP: 1279.[address] scans at [facility] use at least one of these dose optimization techniques: automated e xposure control; mA and/or kV adjustment per patient size (includes targeted exams where dose is matc hed to clinical indication); or iterative reconstruction. FINDINGS: No evidence of intracranial hemorrhage or mass effect. Ventricular system and basal cisterns are [place] nt. Mild small vessel changes with mild parenchymal volume loss. No extra-axial fluid collections. No evidence of mass or mass effect. Slight mucosal thickening ethmoid air cells. Mastoid air cells well aerated. Normal posterior nasopha rynx. CT/CT head wo con* [id number] IMPRESSION: 1. No evidence of intracranial hemorrhage or mass effect. 2. Mild small vessel changes. Mild parenchymal volume loss. 3. No acute intracranial findings.
[2022-10-12] MEDS: ondansetron 2 mg/ML SDV 2 mL 4 MG IVP (14:40)
[2022-10-12 14:47] LABS: Basophils # 0.1 10^3/uL (0.0-0.1); Eosinophils # 0.1 10^3/uL (0.0-0.8); Eosinophils % 1.6 %; Hemoglobin 9.1 g/dL (11.7-16.6); Lymphocytes # 1.1 10^3/uL (0.8-4.8); Lymphocytes % 13.9 %; Mean Corpuscular HGB Conc 27.6 g/dL (30.0-36.0); Mean Corpuscular Hemoglobin 20.8 pg (28.0-34.0); Mean Corpuscular Volume 75.5 fl (80-94); Monocytes # 0.5 10^3/uL (0.2-0.9); Neutrophils # 5.87 10^3/uL (1.8-7.7); Nucleated Red Blood Cells % 0.3 %; Platelet Count 263 10^3/cmm (130-400); Red Blood Count 4.37 10^6/uL (4.1-5.3); Red Cell Distribution Width 20.2 % (12.1-15.1); White Blood Count 7.7 10^3/uL (4.0-10.0)
[2022-10-12 14:59] LABS: Troponin(5th) Baseline 15 ng/L (0-15)
--- NOTE | 2022-10-12 15:06 | PC.NURSE ---
Pt hooked up to continuous bedside cardiac monitoring.
[2022-10-12 15:09] LABS: Alanine Aminotransferase 11 U/L (0-41); Albumin Level 3.6 g/dL (3.5-5.2); Alkaline Phosphatase 52 U/L (40-130); Blood Urea Nitrogen 29 mg/dL (8-23); Carbon Dioxide 21 mmol/L (22-29); Chloride 98 mmol/L (98-107); Globulin 1.8 g/dL (1.3-4.6); Glomerular Filtration Rate 46.7 mL/min (90-130); Glucose 270 mg/dL (65-115); Lipase 78 U/L (13-60); NT Pro B Type Natriuretic Pept 917 pg/mL (0-125); Osmolality Calculated 293 mOsm/kg (285-295); Sodium 134 mmol/L (136-145); Total Bilirubin 0.3 mg/dL (0.15-1.2); Total Protein 5.4 g/dL (6.6-8.7)
[2022-10-12 15:12] LABS: Aspartate Amino Transferase 22 U/L (0-40)
[2022-10-12 15:16] LABS: INR 1.09 (0.8-1.2); Partial Thromboplastin Time 27.8 SECONDS (23.9-36.7)
--- NOTE | 2022-10-12 15:16 | ECG_ITS ---
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 Measurements Intervals [place] Rate: 57 P: 0 TX: 0 QRS: -39 QRSD: 115 T: 5 QT: 441 QTc: 433 Interpretive Statements ATRIAL FIBRILLATION WITH SLOW VENTRICULAR RESPONSE WITH ABERRANT CONDUCTION OR VENTRICULAR PREMATURE COMPLEXES LEFT AXIS DEVIATION [QRS AXIS < -30] LOW QRS VOLTAGE IN PRECORDIAL LEADS [QRS DEFLECTION < 1.0 mV IN CHEST LEADS] INCOMPLETE RIGHT BUNDLE BRANCH BLOCK [90+ ms QRS DURATION, TERMINAL R IN V1/V2, 40+ ms S IN I/aVL/V4/V5/V6] ANTEROSEPTAL MYOCARDIAL INFARCTION , OF INDETERMINATE AGE [40+ ms Q WAVE IN V1-V4] Compared to ECG 09/20/2022 23:29:18 Ventricular premature complex(es) now present Aberrant conduction of supraventricular beat(s) now present Incomplete right bundle-branch block now present Right bundle-branch block no longer present Myocardial infarct finding still present Electronically Signed On 10-12-2022 15:39:51 CDT by Patrick Roach M.D. [id number]
--- NOTE | 2022-10-12 15:39 | ECG_ITS ---
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 Measurements Intervals [place] Rate: 64 P: 0 NE: 0 QRS: -43 QRSD: 111 T: 9 QT: 419 QTc: 435 Interpretive Statements ATRIAL FIBRILLATION WITH ABERRANT CONDUCTION OR VENTRICULAR PREMATURE COMPLEXES LEFT AXIS DEVIATION [QRS AXIS < -30] LOW QRS VOLTAGE IN PRECORDIAL LEADS [QRS DEFLECTION < 1.0 mV IN CHEST LEADS] INCOMPLETE RIGHT BUNDLE BRANCH BLOCK [90+ ms QRS DURATION, TERMINAL R IN V1/V2, 40+ ms S IN I/aVL/V4/V5/V6] ANTEROSEPTAL MYOCARDIAL INFARCTION , OF INDETERMINATE AGE [40+ ms Q WAVE IN V1-V4] Compared to ECG 10/12/2022 15:16:26 No significant changes Electronically Signed On 10-12-2022 17:59:39 CDT by Patrick Roach M.D. [id number]
[2022-10-12 15:51] LABS: Troponin 5 2HR 18.12 ng/L (0-15)
[2022-10-12 15:55] LABS: Troponin 5 2HR Delta 3.12 ABS# (0-10)
[2022-10-12 17:10] LABS: Add Urine Microscopic? YES; Bilirubin Urine Neg (Negative); Blood Urine Neg (Negative); Glucose Urine UA Norm (Normal); Ketones Urine Negative (Negative); Leukocyte Esterase Urine Negative (Negative); Nitrate Urine Negative (Negative); Protein Urine 1+ (Negative); Urine Appearance SL Hazy (CLEAR); Urine Color Yellow (Yellow); Urobilinogen Urine Norm (Negative); pH Urine 5 (5-7)
[2022-10-12 17:21] LABS: Amorphous Sediment Urine TRACE /hpf; Bacteria Urine 1+ /hpf; Fine Granular Casts Urine 0-4 /lpf; Hyaline Casts Urine 0-4 /lpf; RBC Urine RARE /hpf (0-2); Squamous Epithelial Cell Urine RARE /hpf (0-5); WBC Urine 0-4 /hpf (0-5)
[2022-10-12 17:22] LABS: Other Casts Urine 0-4 /lpf
[2022-10-12 17:23] LABS: Add Urine Culture? No
== END 2022-10-12 17:39 | disposition home or self-care (01) ==
PROVIDERS: Emergency Provider Physician Assistant; PCP Family Medicine
DX: R07.89 Other chest pain (principal); D64.9 Anemia, unspecified; Z79.85 Long-term (current) use of injectable non-insulin antidiabetic drugs; Z79.4 Long term (current) use of insulin; E11.22 Type 2 diabetes mellitus with diabetic chronic kidney disease; N18.30 Chronic kidney disease, stage 3 unspecified; E78.5 Hyperlipidemia, unspecified
CPT/HCPCS: 36415; 70450; 71045; 80053; 81001; 83690; 83880; 84484; 85025; 85610; 85730; 93005; 96374; 99285; J2405

== ENCOUNTER 2022-10-19 23:57 | Emergency (ER) | payer MEDICARE, MEDICAID, SELFPAY ==
[2022-10-19 23:59] VITALS: BP 136/81; PULSE 112; RESP 20; O2SAT 95; BMI 56.7
[2022-10-20 00:11] VITALS: BP 136/81; PULSE 98; RESP 28; O2SAT 91
--- NOTE | 2022-10-20 00:22 | CTR_ITS ---
PROCEDURE INFORMATION: Exam: CT Abdomen And Pelvis With Contrast Exam date and time: 10/20/2022 12:31 AM Age: 67 years old Clinical indication: Abdominal pain; Periumbilical; Prior surgery; Surgery date: 6+ months; Surgery type: Hernia repair. Appy; Patient HX: C/O of worsening abd pain to site of ventral hernia. ; Additional info: Hernia, irreducible, abd wall TECHNIQUE: Imaging protocol: Computed tomography of the abdomen and pelvis with contrast. Radiation optimization: All CT scans at this facility use at least one of these dose optimization techniques: automated exposure control; mA and/or kV adjustment per patient size (includes targeted exams where dose is matched to clinical indication); or iterative reconstruction. Contrast material: OMNI 350; Contrast volume: 75 ml; Contrast route: INTRAVENOUS (IV); REPORTING DATA: Count of CT and Cardiac NM exams in prior 12 months: This patient has received 2 known CTs and 0 known cardiac nuclear medicine studies in the 12 months prior to the current study. COMPARISON: CT abdomen pelvis wo con [id number] 09/10/2021 5:57 PM RADIATION DOSE METRICS: Total DLP (mGy-cm): 1388.13 FINDINGS: Lungs: Mild lung base atelectasis or scarring. Diaphragm: Very small hiatal hernia. Liver: Liver is large and fatty replaced. Few small hepatic hypodensities measure up to about 1.2 cm. These may be new. Gallbladder and bile ducts: No calcified gallstones or biliary dilation identified. Pancreas: Unremarkable with no suspicious mass. No ductal dilation. Spleen: The spleen is not enlarged. No suspicious enhancing mass is noted. Adrenal glands: Normal. No mass. Kidneys and ureters: No solid renal mass or hydronephrosis. Stomach and bowel: Moderate sigmoid diverticulosis. Appendix: No evidence of appendicitis. Intraperitoneal space: No abscess or free air. Vasculature: Advanced diffuse vascular calcification noted. Lymph nodes: No enlarged lymph nodes. Urinary bladder: Large bladder. Reproductive: Large prostate. Bones/joints: Moderate spine DJD. Soft tissues: Large ventral hernia again seen which contains large and small bowel, and involves about 21 cm maximum diameter. The neck measures about 7.5 cm, previously about 6 cm. Adjacent mesenteric fat stranding mildly progressed CT/CT abdomen pelvis w con* [id number] IMPRESSION: 1. Very large ventral hernia again seen, containing large and small bowel. This is mildly larger from the prior, and there is mildly progressive mesenteric fat stranding. This may imply developing inflammation or incarceration. Advise surgical consultation. 2. No small bowel obstruction, abscess or free air. 3. A few hepatic lesions are detailed above. These may be new from prior and are therefore concerning.
--- NOTE | 2022-10-20 00:23 | W.ED.ABDPA2 ---
HPI - Abdominal Pain General: Chief Complaint: Abdominal Pain Stated Complaint: ABD PAIN Time Seen by Provider: 10/20/22 00:03 History of Present Illness: Patient presents to the ER by EMS with complaints of abdominal wall hernia. Patient had a coughing fit and he has known hernia got bigger and now is the patient is unable to reduce it. Patient was given 1 mg Dilaudid and 4 Zofran in the ambulance is now. MD elicited complaint: abdominal pain (Worsening of her hernia and now it is unreducible) Pertinent past history: other (Abdominal hernia) Onset (ago): hour(s) (Worsening today) Exacerbating factors: other (Coughing) Relieving factors: nothing Review of Systems General: Reports: 10 or more systems reviewed and unremarkable except in HPI and below PFSH ED PFSH: Medical History Acute kidney injury superimposed on CKD Anemia Atrial fibrillation on anticoagulation Blood transfusion declined because patient is Confucianist Carpal tunnel syndrome Chest pain Patient underwent coronary angiogram which was normal Chronic anticoagulation CKD (chronic kidney disease) stage 3, GFR 30-59 ml/min COVID COVID-19 Dehydration Diabetes type 2, uncontrolled Diabetic neuropathy Diastolic heart failure Diverticulosis Dysphagia Dyspnea External hemorrhoids with complication GERD (gastroesophageal reflux disease) Gout Hyperlipidemia Hypertrophy of uvula Hypertrophy of uvula Low hemoglobin Melena Morbid obesity Morbid obesity with BMI of 60.0-69.9, adult Neuropathy LINDA on CPAP Osteoarthritis Otalgia Rectal bleeding Rectal polyp Renal insufficiency Improved after IV fluid Retrosternal thyroid goiter Rheumatoid arthritis In remission Seronegative rheumatoid arthritis in remission Stage 3 chronic kidney disease due to diabetes mellitus Substernal thyroid goiter Uncontrolled type 2 diabetes mellitus Ventral incisional hernia Vitamin D deficiency Surgical History History of colonoscopy History of esophagogastroduodenoscopy (EGD) S/P appendectomy S/P carpal tunnel release 2x left S/P cervical disc replacement S/P hernia repair S/P skin cancer resection S/P thyroid surgery S/P tonsillectomy S/P trigger finger release Family History Father Cancer Prostate Hypertension Hypercholesterolemia Heart disease Mother Hypertension Hypercholesterolemia Anesthesia complication Daughter Anesthesia complication Denies family history of Bleeding disorder Social History Smoking and tobacco status: never smoked Alcohol intake: former Substance/Drug Use: never Lives independently: Yes Household members: spouse Marital status: Current occupational status: disabled Alexandra/Confucianism: Confucianist Special alexandra needs: Yes Agree to transfusion: No Physical Exam Const: COMMON NORMALS: no acute distress, patient oriented x3, no limitations, healthy appearing, alert and well nourished NUTRITIONAL APPEARANCE: obese HENMT: COMMON NORMALS: normocephalic, atraumatic, hearing grossly normal bilaterally, external ears normal, Normal external nose present and moist oral mucous membranes HEAD & SCALP: normocephalic and atraumatic NOSE: Normal external nose present EXTERNAL EAR: Yes external ears normal Neck/C-Spine: COMMON NORMALS: full ROM, no lymphadenopathy, supple, no meningeal signs, no JVD and Thyroid normal THYROID: Thyroid normal Chest: COMMONS NORMALS: normal inspection of the chest and normal palpation of entire chest wall Resp: COMMON NORMALS: normal respiratory effort, No retractions, No use of accessory muscles and clear to auscultation bilaterally AUSCULTATION: clear to auscultation bilaterally Cardio: COMMON NORMALS: no JVD, regular rate, regular rhythm, S1 normal heart sound present, S2 normal heart sound present, No gallops present (Cardio), No clicks present (Cardio), No murmurs present (Cardio) and No rub (Cardio) RATE: regular rate RHYTHM: regular rhythm HEART SOUNDS: S1 normal heart sound present and S2 normal heart sound present GI: OTHER: Morbidly obese abdomen, ventral hernia noted superior to the umbilicus is unable to be reduced. Neuro: COMMON NORMALS: patient oriented x3 SENSORIUM/ORIENTATION: Yes alert MENINGEAL SIGNS: Yes no meningeal signs Course Vital Signs: Vital signs: Vital Signs Pulse Rate 90 10/20/22 02:30 Respiratory Rate 16 10/20/22 02:30 Blood Pressure 176/81 10/20/22 02:30 Pulse Oximetry 95 10/20/22 02:30 Oxygen Delivery Me thod Room Air 10/20/22 02:30 Oxygen Flow Rate 2 10/19/22 23:59 MDM - Abdominal Pain Medical Decision Making Presents today with a abdominal hernia that is not reproducible. Lab work was obtained and CT scan was obtained that showed very large ventral hernia that may imply developing inflammation or incarceration of by surgical consult. Dr. Girard was consulted and said this patient due to the size of the patient and size of the hernia may require more care than we can provide at this moment so he suggested we transfer him to a higher level of care facility. In talking to the patient they would like to be transferred to [facility] in [place]. Discussed the case with Dr. Palmer Campbell surgeon for [facility] in [place] who stated this sounds like a very mild case as long as the patient is not having nausea vomiting and intractable pain he can call their office for the trauma and acute care surgery office and schedule an appointment for the upcoming future. This was discussed with the patient's and they are happy with this plan. Patient be discharged with 1 prescription for [place]. Differential Diagnosis Likely abdominal pain; Unlikely acute appendicitis, calculus of kidney, constipation, diverticulitis, endometriosis, gastroenteritis, pancreatitis or small bowel obstruction Medical Records I reviewed the patient's medical records. Lab Data I reviewed the patient's lab results. 10/20/22 00:19 10/20/22 00:19 Labs/Radiology: Radiology Impressions Abdomen/Pelvis CT 10/20/22 00:22 IMPRESSION: 1. Very large ventral hernia again seen, containing large and small bowel. This is mildly larger from the prior, and there is mildly progressive mesenteric fat stranding. This may imply developing inflammation or incarceration. Advise surgical consultation. 2. No small bowel obstruction, abscess or free air. 3. A few hepatic lesions are detailed above. These may be new from prior and are therefore concerning. Laboratory Results WBC 6.5 10^3/uL (4.0-10.0) 10/20/22 00:19 RBC 4.47 10^6/uL (4.1-5.3) 10/20/22 00:19 Hgb 9.2 g/dL (11.7-16.6) L 10/20/22 00:19 Hct 33.3 % (42.0-52.0) L 10/20/22 00:19 MCV 74.5 fl (80-94) L 10/20/22 00:19 MCH 20.6 pg (28.0-34.0) L 10/20/22 00:19 MCHC 27.6 g/dL (30.0-36.0) L 10/20/22 00:19 RDW 20.2 % (12.1-15.1) H 10/20/22 00:19 Plt Count 202 10^3/cmm (130-400) 10/20/22 00:19 MPV 9.2 fL (7.4-10.4) 10/20/22 00:19 Neut % (Auto) 76.2 % 10/20/22 00:19 Lymph % (Auto) 14.4 % 10/20/22 00:19 [place] % (Auto) 6.4 % 10/20/22 00:19 Eos % (Auto) 1.7 % 10/20/22 00:19 Baso % (Auto) 0.8 % 10/20/22 00:19 Neut # (Auto) 4.97 10^3/uL (1.8-7.7) 10/20/22 00:19 Lymph # (Auto) 0.9 10^3/uL (0.8-4.8) 10/20/22 00:19 [place] # (Auto) 0.4 10^3/uL (0.2-0.9) 10/20/22 00:19 Eos # (Auto) 0.1 10^3/uL (0.0-0.8) 10/20/22 00:19 Baso # (Auto) 0.1 10^3/uL (0.0-0.1) 10/20/22 00:19 Nucleated RBC % (auto) 0 % 10/20/22 00:19 Nucleated RBCs # 0.0 /100WBC 10/20/22 00:19 Sodium 137 mmol/L (136-145) 10/20/22 00:19 Potassium 4.1 mmol/L (3.5-5.1) 10/20/22 00:19 Chloride 100 mmol/L (98-107) 10/20/22 00:19 Carbon Dioxide 26 mmol/L (22-29) 10/20/22 00:19 Anion Gap 15.1 (5-19) 10/20/22 00:19 BUN 29 mg/dL (8-23) H 10/20/22 00:19 Creatinine 1.5 mg/dL (0.7-1.2) H 10/20/22 00:19 GFR Calculation 46.7 mL/min (90-130) L 10/20/22 00:19 Glucose 177 mg/dL (65-115) H 10/20/22 00:19 Calculated Osmolality 294 mOsm/kg (285-295) 10/20/22 00:19 Calcium 8.8 mg/dL (8.5-10.5) 10/20/22 00:19 Total Bilirubin 0.2 mg/dL (0.15-1.2) 10/20/22 00:19 AST 16 U/L (0-40) 10/20/22 00:19 ALT 13 U/L (0-41) 10/20/22 00:19 Alkaline Phosphatase 51 U/L (40-130) 10/20/22 00:19 Total Protein 6.5 g/dL (6.6-8.7) L 10/20/22 00:19 Albumin 3.8 g/dL (3.5-5.2) 10/20/22 00:19 Globulin 2.7 g/dL (1.3-4.6) 10/20/22 00:19 Lipase 59 U/L (13-60) 10/20/22 00:19 Urine Color Light yellow (Yellow) 10/20/22 01:37 Urine Appearance Clear (CLEAR) 10/20/22 01:37 Urine pH 5 (5-7) 10/20/22 01:37 Ur Specific [place] 1.020 (1.005-1.030) 10/20/22 01:37 Urine Protein Neg (Negative) 10/20/22 01:37 Urine Glucose (UA) Norm (Normal) 10/20/22 01:37 Urine Ketones Negative (Negative) 10/20/22 01:37 Urine Blood Neg (Negative) 10/20/22 01:37 Urine Nitrate Negative (Negative) 10/20/22 01:37 Urine Bilirubin Neg (Negative) 10/20/22 01:37 Urine Urobilinogen Neg mg/dL (Negative) 10/20/22 01:37 Ur Leukocyte Esterase Negative (Negative) 10/20/22 01:37 Discharge Plan Discharge Patient Disposition: Home Clinical Impression: Abdominal wall hernia Condition: Stable Prescriptions: New hydrocodone-acetaminophen 5-325 mg tablet 1 tab PO Q6H PRN (Reason: pain) Qty: 14 0RF No Action Trulicity 0.75 mg/0.5 mL pen injector 3 mg SUBCUT Q7D Rx Instructions: ON FRIDAYS (DME) blood-glucose meter [Accu-Chek Guide Glucose Meter] Misc See Rx Instructions .ROUTE .MEDSUPPLY Qty: 1 0RF Rx Instructions: As directed (DME) lancets [Accu-Chek Fastclix Lancet Drum] Misc See Rx Instructions .ROUTE .MEDSUPPLY Qty: 200 3RF Rx Instructions: three times/day (DME) Diabetic shoes with molded inserts See Rx Instructions .Route .MEDSUPPLY Qty: 1 0RF Rx Instructions: As directed fenofibrate nanocrystallized 145 mg tablet 145 mg PO DAILY acyclovir 5 % ointment See Rx Instructions .ROUTE .COMPLEX Rx Instructions: aaa topically qid prn ergocalciferol (vitamin D2) 50,000 unit capsule 50,000 unit PO Q30D Rx Instructions: FIRST SUNDAY OF THE MONTH (DME) pen needle, diabetic 31 gauge x 1/4 needle See Rx Instructions .Route Qty: 100 3RF Rx Instructions: As directed acetaminophen [Tylenol Extra Strength] 500 mg tablet 1,000 mg PO Q6H PRN (Reason: Pain) mupirocin 2 % ointment 1 applic topical BID PRN (Reason: Rash) (DME) Diabetic shoes with 3 pairs of inserts See Rx Instructions .Route .MEDSUPPLY Qty: 1 0RF Rx Instructions: As directed ferrous sulfate [Felipe-In-Terri] 15 mg iron (75 mg)/mL drops 1 ml PO .Sun Qty: 50 0RF bumetanide 1 mg tablet See Rx Instructions PO BID Qty: 180 3RF Rx Instructions: 2 tab in AM, 1 tab at 2PM orally twice a day; isosorbide mononitrate 30 mg tablet extended release 24 hr 60 mg PO DAILY Qty: 180 1RF (DME) Diabetic shoes with inserts See Rx Instructions .Route .MEDSUPPLY Qty: 1 0RF Rx Instructions: As directed ketoconazole 2 % cream See Rx Instructions .ROUTE .COMPLEX Qty: 60 2RF Dose Instruction: APPLY CREAM TOPICALLY TO AFFECTED AREA TWICE DAILY FOR 30 DAYS Rx Instructions: APPLY CREAM TOPICALLY TO AFFECTED AREA TWICE DAILY FOR 30 DAYS (DME) Accu-Chek Guide test strips Strip See Rx Instructions .ROUTE .MEDSUPPLY Qty: 300 3RF Rx Instructions: test blood sugar three times a day (DME) pen needle, diabetic [BD Gabriella 2nd Gen Pen Needle] 32 gauge x 5/32 needle See Rx Instructions .Route Qty: 100 3RF Rx Instructions: As directed (DME) FreeStyle Huma 2 [place] Misc See Rx Instructions .Route Qty: 1 0RF Rx Instructions: Check BS 4 -6 times a day. (DME) FreeStyle Huma 2 Sensor Kit See Rx Instructions .Route Qty: 6 3RF Rx Instructions: Change every 14 days. rivaroxaban 20 mg tablet 20 mg PO DAILY Qty: 90 3RF Hold Instructions: Resume on 04/16/21. verapamil 240 mg tablet extended release 240 mg PO DAILY Qty: 90 3RF Hold Instructions: Dose Change nitroglycerin [Nitrostat] 0.4 mg tablet, sublingual 0.4 mg SUBLINGUAL DIRECTED PRN (Reason: CHEST PAIN) Qty: 25 2RF metoprolol tartrate 50 mg tablet 100 mg PO BID Qty: 240 3RF sacubitril-valsartan 49-51 mg tablet 1 tab PO BID 28 Days Qty: 56 0RF clarithromycin 500 mg tablet 500 mg PO BID 14 Days Qty: 28 0RF pantoprazole [Protonix] 40 mg tablet,delayed release (DR/EC) 40 mg PO BID 14 Days Qty: 28 0RF amoxicillin 500 mg capsule 1,000 mg PO BID 14 Days Qty: 56 0RF verapamil 180 mg capsule,ext rel. pellets 24 hr 180 mg PO DAILY Qty: 14 0RF Rx Instructions: dose reduced while on clarithromycin eplerenone 25 mg tablet 25 mg PO DAILY Qty: 90 3RF triamcinolone acetonide 0.1 % cream 1 applic topical BID PRN (Reason: joint inflamation) diclofenac sodium 1 % gel See Rx Instructions .ROUTE .COMPLEX PRN (Reason: Pain, Mild) Rx Instructions: 4 grams topically qid prn gabapentin 100 mg capsule 100 mg PO DAILY ropinirole 0.25 mg tablet 0.25 mg PO QPM clindamycin phosphate 1 % gel, once daily 1 applic TOPICAL DAILY Lantus U-100 Insulin 100 unit/mL solution 60 unit SUBCUT DAILY allopurinol 100 mg tablet 200 mg PO DAILY Humalog KwikPen Insulin 100 unit/mL insulin pen 40 unit SUBCUT TID ezetimibe 10 mg tablet 10 mg PO DAILY Discharge Orders: Discharge ED (Routine); Ordered 10/20/22 Ordered By: Jaxon Vasquez Referrals: Samantha Vinson DO [Primary Care Provider] - Patient Instructions: Ventral Hernia (ED), Opioid Safety, Pain Management Activity Restrictions/Additional Instructions: Please call Dr. Palmer Campbell surgeon at [facility] acute care surgery office [phone] to schedule an appointment for further evaluation and treatment of your abdominal hernia. If the pain is uncontrollable and/or you start having nausea vomiting where you cannot keep anything down feel free to come back to the ER for further evaluation as things may have changed. Coding Level of Care Code ED Podiatric Technician for Marcelle Bang
[2022-10-20] MEDS: iohexol 350 mg/mL 500 mL Btl (per mL) IV (00:46)
[2022-10-20 01:26] LABS: Basophils # 0.1 10^3/uL (0.0-0.1); Basophils % 0.8 %; Eosinophils # 0.1 10^3/uL (0.0-0.8); Eosinophils % 1.7 %; Hematocrit 33.3 % (42.0-52.0); Hemoglobin 9.2 g/dL (11.7-16.6); Lymphocytes # 0.9 10^3/uL (0.8-4.8); Lymphocytes % 14.4 %; Mean Corpuscular HGB Conc 27.6 g/dL (30.0-36.0); Mean Corpuscular Hemoglobin 20.6 pg (28.0-34.0); Mean Corpuscular Volume 74.5 fl (80-94); Mean Platelet Volume 9.2 fL (7.4-10.4); Monocytes # 0.4 10^3/uL (0.2-0.9); Monocytes % 6.4 %; Neutrophils # 4.97 10^3/uL (1.8-7.7); Neutrophils % 76.2 %; Nucleated Red Blood Cells % 0 %; Platelet Count 202 10^3/cmm (130-400); Red Blood Count 4.47 10^6/uL (4.1-5.3); Red Cell Distribution Width 20.2 % (12.1-15.1); White Blood Count 6.5 10^3/uL (4.0-10.0)
[2022-10-20 01:36] VITALS: BP 128/78; PULSE 91; RESP 20; O2SAT 93
[2022-10-20 01:44] LABS: Add Urine Microscopic? NO; Charge for UA Resulting for Rev
[2022-10-20 01:45] LABS: Bilirubin Urine Neg (Negative); Blood Urine Neg (Negative); Glucose Urine UA Norm (Normal); Ketones Urine Negative (Negative); Leukocyte Esterase Urine Negative (Negative); Nitrate Urine Negative (Negative); Protein Urine Neg (Negative); Urine Appearance Clear (CLEAR); Urine Color Light yellow (Yellow); Urobilinogen Urine Neg (Negative); pH Urine 5 (5-7)
[2022-10-20 01:46] LABS: Alanine Aminotransferase 13 U/L (0-41); Albumin Level 3.8 g/dL (3.5-5.2); Alkaline Phosphatase 51 U/L (40-130); Anion Gap 15.1 (5-19); Aspartate Amino Transferase 16 U/L (0-40); Blood Urea Nitrogen 29 mg/dL (8-23); Calcium 8.8 mg/dL (8.5-10.5); Carbon Dioxide 26 mmol/L (22-29); Chloride 100 mmol/L (98-107); Globulin 2.7 g/dL (1.3-4.6); Glomerular Filtration Rate 46.7 mL/min (90-130); Glucose 177 mg/dL (65-115); Lipase 59 U/L (13-60); Osmolality Calculated 294 mOsm/kg (285-295); Potassium 4.1 mmol/L (3.5-5.1); Sodium 137 mmol/L (136-145); Total Bilirubin 0.2 mg/dL (0.15-1.2); Total Protein 6.5 g/dL (6.6-8.7)
[2022-10-20 02:30] VITALS: BP 176/81; PULSE 90; RESP 16; O2SAT 95
[2022-10-20 02:43] VITALS: RESP 28; O2SAT 95
[2022-10-20] MEDS: HYDROmorphone 1 mg/mL INJ 1 mL IVP (02:43)
[2022-10-20 03:24] VITALS: BP 125/88; PULSE 92; RESP 22; TEMP 36.6; O2SAT 94
--- NOTE | 2022-10-20 11:13 | DCPLANNER ---
Patient was to follow up with [facility] phone number [phone]. reservation manager faxed patients information to the clinic at fax number [phone] beny Giraldo.
== END 2022-10-20 03:27 | disposition home or self-care (01) ==
PROVIDERS: Nurse Practitioner Family; Emergency Provider Emergency Medicine; PCP Family Medicine
DX: K43.9 Ventral hernia without obstruction or gangrene (principal); Z79.85 Long-term (current) use of injectable non-insulin antidiabetic drugs; Z79.4 Long term (current) use of insulin; I13.0 Hypertensive heart and chronic kidney disease with heart failure and stage 1 through stage 4 chronic kidney disease, or unspecified chronic kidney disease; E11.22 Type 2 diabetes mellitus with diabetic chronic kidney disease; N18.30 Chronic kidney disease, stage 3 unspecified; I50.30 Unspecified diastolic (congestive) heart failure; E78.5 Hyperlipidemia, unspecified
CPT/HCPCS: 74177; 80053; 81003; 83690; 85025; 96374; 99285; J1170; Q9967

== ENCOUNTER → 2022-10-24 16:00 | Outpatient (BNVA) | payer MEDICARE, MEDICAID, SELFPAY | PROVIDERS: PCP Family Medicine; Visit Provider Otolaryngology | DX: K13.79 Other lesions of oral mucosa (principal) | CPT/HCPCS: 42140; 88305 ==

== ENCOUNTER → 2022-11-01 09:58 | Outpatient (BNVA) | payer MEDICARE, MEDICAID, SELFPAY | PROVIDERS: PCP Family Medicine; Visit Provider Otolaryngology | DX: Z48.814 Encounter for surgical aftercare following surgery on the teeth or oral cavity (principal); K13.79 Other lesions of oral mucosa | CPT/HCPCS: 99024 ==

== ENCOUNTER 2022-11-10 09:08 | Outpatient (CLI) | payer MEDICARE, MEDICAID, SELFPAY ==
[2022-11-10 10:17] LABS: Basophils % 0.4 %; Eosinophils % 0.8 %; Hematocrit 32.5 % (42.0-52.0); Hemoglobin 9.1 g/dL (11.7-16.6); Lymphocytes # 0.9 10^3/uL (0.8-4.8); Lymphocytes % 18.4 %; Mean Corpuscular Hemoglobin 20.4 pg (28.0-34.0); Mean Platelet Volume 9.6 fL (7.4-10.4); Monocytes # 0.4 10^3/uL (0.2-0.9); Monocytes % 8.4 %; Neutrophils # 3.57 10^3/uL (1.8-7.7); Neutrophils % 71.6 %; Nucleated Red Blood Cells % 0 %; Platelet Count 184 10^3/cmm (130-400); Red Blood Count 4.45 10^6/uL (4.1-5.3); Red Cell Distribution Width 19.5 % (12.1-15.1)
[2022-11-10 10:31] LABS: Estmated Average Glucose 192; Hemoglobin A1C 8.3 % (4.0-6.0)
[2022-11-10 10:41] LABS: Alanine Aminotransferase 10 U/L (0-41); Albumin Level 3.8 g/dL (3.5-5.2); Alkaline Phosphatase 43 U/L (40-130); Anion Gap 14.1 (5-19); Aspartate Amino Transferase 10 U/L (0-40); Blood Urea Nitrogen 17 mg/dL (8-23); Calcium 8.9 mg/dL (8.5-10.5); Carbon Dioxide 28 mmol/L (22-29); Chloride 106 mmol/L (98-107); Chol HDL Ratio 4.82 mg/dL (1.0-5.00); Cholesterol 135 mg/dL (0-200); Globulin 2.2 g/dL (1.3-4.6); Glomerular Filtration Rate 55.1 mL/min (90-130); Glucose 192 mg/dL (65-115); HDL Cholesterol 28 mg/dL (60-100); LDL Cholesterol Calculated 77 mg/dL (50-129); LDL HDL Ratio 2.75 RATIO (0.00-3.22); Osmolality Calculated 305 mOsm/kg (285-295); Potassium 4.1 mmol/L (3.5-5.1); Sodium 144 mmol/L (136-145); Total Bilirubin 0.2 mg/dL (0.15-1.2); Triglycerides 150 mg/dL (0-150)
[2022-11-10 10:42] LABS: Creatinine Urine, Random 122 mg/dL (39-259); Microalbum Creatinine Ratio Ur 8 mg/dL (0-20); Microalbumin Random Urine 1 ug/dL (0-20)
== END 2022-11-10 09:09 | disposition home or self-care (01) ==
LOC: LAB 09:09
PROVIDERS: Internal Medicine Rheumatology; PCP Family Medicine; Visit Provider Internal Medicine
DX: D64.9 Anemia, unspecified (principal); E78.2 Mixed hyperlipidemia; M06.00 Rheumatoid arthritis without rheumatoid factor, unspecified site; M10.9 Gout, unspecified; I50.32 Chronic diastolic (congestive) heart failure; Z79.899 Other long term (current) drug therapy; Z86.39 Personal history of other endocrine, nutritional and metabolic disease
CPT/HCPCS: 36415; 80053; 80061; 82044; 83036; 85025

== ENCOUNTER → 2022-11-14 14:27 | Outpatient (BNVA) | payer MEDICARE, MEDICAID, SELFPAY | PROVIDERS: PCP Family Medicine; Visit Provider Internal Medicine Rheumatology | DX: M06.00 Rheumatoid arthritis without rheumatoid factor, unspecified site (principal); M1A.3790 Chronic gout due to renal impairment, unspecified ankle and foot, without tophus (tophi); M75.52 Bursitis of left shoulder; Z79.899 Other long term (current) drug therapy; N18.30 Chronic kidney disease, stage 3 unspecified; E11.8 Type 2 diabetes mellitus with unspecified complications; Z79.4 Long term (current) use of insulin | CPT/HCPCS: 99214 ==

== ENCOUNTER → 2022-11-15 15:07 | Outpatient (BNVA) | payer MEDICARE, MEDICAID, SELFPAY | PROVIDERS: PCP Family Medicine; Visit Provider Otolaryngology | DX: Z48.814 Encounter for surgical aftercare following surgery on the teeth or oral cavity (principal); K13.79 Other lesions of oral mucosa; M26.609 Unspecified temporomandibular joint disorder, unspecified side | CPT/HCPCS: 99024 ==

== ENCOUNTER → 2022-11-17 09:37 | Outpatient (BNVA) | payer MEDICARE, MEDICAID, SELFPAY | PROVIDERS: PCP Family Medicine; Visit Provider Internal Medicine Cardiovascular Disease | DX: I48.20 Chronic atrial fibrillation, unspecified (principal); I50.32 Chronic diastolic (congestive) heart failure; K13.79 Other lesions of oral mucosa; D64.9 Anemia, unspecified; E78.2 Mixed hyperlipidemia; E66.01 Morbid (severe) obesity due to excess calories; Z68.44 Body mass index [BMI] 60.0-69.9, adult; G47.33 Obstructive sleep apnea (adult) (pediatric); Z99.89 Dependence on other enabling machines and devices | CPT/HCPCS: 99214 ==

== ENCOUNTER → 2022-12-11 08:48 | Outpatient (BNVA) | payer MEDICARE, MEDICAID, SELFPAY | PROVIDERS: PCP Family Medicine; Visit Provider Internal Medicine Rheumatology | DX: N18.31 Chronic kidney disease, stage 3a (principal) | CPT/HCPCS: 80069; 80076; 82043; 82310; 82565; 83970; 85025; 86140 ==

== ENCOUNTER → 2022-12-20 08:44 | Outpatient (BNVA) | payer MEDICARE, MEDICAID, SELFPAY | PROVIDERS: PCP Family Medicine; Visit Provider Internal Medicine | DX: E78.5 Hyperlipidemia, unspecified (principal); E78.2 Mixed hyperlipidemia; E04.9 Nontoxic goiter, unspecified; E04.1 Nontoxic single thyroid nodule; Z79.4 Long term (current) use of insulin | CPT/HCPCS: 99214 ==

== ENCOUNTER → 2022-12-21 15:11 | Outpatient (BNVA) | payer MEDICARE, MEDICAID, SELFPAY | PROVIDERS: PCP Family Medicine; Visit Provider Dermatology | DX: D48.5 Neoplasm of uncertain behavior of skin (principal); L81.4 Other melanin hyperpigmentation; L57.0 Actinic keratosis; L82.1 Other seborrheic keratosis; L91.8 Other hypertrophic disorders of the skin; L21.8 Other seborrheic dermatitis; D18.01 Hemangioma of skin and subcutaneous tissue | CPT/HCPCS: 11102; 11200; 17000; 99214 ==

== ENCOUNTER → 2023-01-02 07:49 | Outpatient (BNVA) | payer MEDICARE, MEDICAID, SELFPAY | PROVIDERS: PCP Family Medicine; Visit Provider Dermatology | DX: C44.622 Squamous cell carcinoma of skin of right upper limb, including shoulder (principal) | CPT/HCPCS: 13132; 17311; 17312 ==

== ENCOUNTER → 2023-01-10 09:59 | Outpatient (BNVA) | payer MEDICARE, MEDICAID, SELFPAY | PROVIDERS: Visit Provider Podiatrist Foot & Ankle Surgery | DX: I48.20 Chronic atrial fibrillation, unspecified (principal); I50.32 Chronic diastolic (congestive) heart failure; E11.42 Type 2 diabetes mellitus with diabetic polyneuropathy; E11.8 Type 2 diabetes mellitus with unspecified complications; L60.3 Nail dystrophy; I73.9 Peripheral vascular disease, unspecified; M20.21 Hallux rigidus, right foot; M20.22 Hallux rigidus, left foot; M20.41 Other hammer toe(s) (acquired), right foot; M20.42 Other hammer toe(s) (acquired), left foot; M21.41 Flat foot [pes planus] (acquired), right foot; M21.42 Flat foot [pes planus] (acquired), left foot; Z79.4 Long term (current) use of insulin | CPT/HCPCS: 11721; 36415; 80048; 83880 ==

== ENCOUNTER → 2023-01-17 08:57 | Outpatient (BNVA) | payer MEDICARE, MEDICAID, SELFPAY | PROVIDERS: Visit Provider Internal Medicine | DX: I48.20 Chronic atrial fibrillation, unspecified (principal); I50.32 Chronic diastolic (congestive) heart failure | CPT/HCPCS: 80048; 83880 ==

== ENCOUNTER 2023-01-18 06:00 | Outpatient (RCR) | payer MEDICARE, MEDICAID, SELFPAY | END 2023-02-03 23:59 | disposition home or self-care (01) | LOC: TPT 06:00 | PROVIDERS: Visit Provider Family Medicine | DX: M54.9 Dorsalgia, unspecified (principal); G89.29 Other chronic pain | CPT/HCPCS: 97110; 97163 ==

== ENCOUNTER 2023-02-04 06:00 | Outpatient (RCR) | payer MEDICARE, MEDICAID, SELFPAY | END 2023-02-28 23:59 | disposition home or self-care (01) | LOC: TPT 06:00 | PROVIDERS: Visit Provider Family Medicine | DX: M54.9 Dorsalgia, unspecified (principal); G89.29 Other chronic pain | CPT/HCPCS: 97110 ==

== ENCOUNTER → 2023-02-07 11:00 | Outpatient (BNVA) | payer MEDICARE, MEDICAID, SELFPAY | PROVIDERS: Visit Provider Internal Medicine | DX: D64.9 Anemia, unspecified (principal); I48.20 Chronic atrial fibrillation, unspecified; I50.32 Chronic diastolic (congestive) heart failure; R63.5 Abnormal weight gain | CPT/HCPCS: 80048; 83880 ==

== ENCOUNTER → 2023-02-14 13:13 | Outpatient (BNVA) | payer MEDICARE, MEDICAID, SELFPAY | PROVIDERS: PCP Family Medicine; Visit Provider Internal Medicine Rheumatology | DX: M06.00 Rheumatoid arthritis without rheumatoid factor, unspecified site (principal); M1A.3790 Chronic gout due to renal impairment, unspecified ankle and foot, without tophus (tophi); M75.52 Bursitis of left shoulder; Z79.899 Other long term (current) drug therapy | CPT/HCPCS: 99214 ==

== ENCOUNTER → 2023-02-21 09:49 | Outpatient (BNVA) | payer MEDICARE, MEDICAID, SELFPAY | PROVIDERS: PCP Family Medicine; Visit Provider Otolaryngology | DX: E04.9 Nontoxic goiter, unspecified (principal) | CPT/HCPCS: 99213 ==

== ENCOUNTER 2023-03-01 13:13 | Emergency (ER) | payer MEDICARE, MEDICAID, SELFPAY ==
[2023-03-01 13:14] VITALS: BP 156/74; PULSE 57; RESP 20; TEMP 36.7; O2SAT 96
--- NOTE | 2023-03-01 13:18 | XR_ITS ---
WS: [id number] Exam: XR chest 1V portable [id number] Date/Time of Exam: 03/01/2023 1:18 PM Reason For Exam: chest pain Comparison 10/12/2022. The lungs are fully expanded and clear. Heart size top limits normal. No pleural effusions. Chronic e levation of the RIGHT diaphragm. The mediastinum and osseous thorax are unremarkable in appearance. IMPRESSION: 1. No acute cardiopulmonary finding.
--- NOTE | 2023-03-01 13:31 | ECG_ITS ---
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 Measurements Intervals [place] Rate: 54 P: 0 [place]: 0 QRS: -44 QRSD: 110 T: 28 QT: 424 QTc: 403 Interpretive Statements ATRIAL FIBRILLATION WITH SLOW VENTRICULAR RESPONSE LEFT AXIS DEVIATION [QRS AXIS < -30] LOW QRS VOLTAGE IN PRECORDIAL LEADS [QRS DEFLECTION < 1.0 mV IN CHEST LEADS] INCOMPLETE RIGHT BUNDLE BRANCH BLOCK ANTEROSEPTAL MYOCARDIAL INFARCTION , OF INDETERMINATE AGE [40+ ms Q WAVE IN V1-V4] Compared to ECG 10/12/2022 16:33:41 Ventricular premature complex(es) no longer present Aberrant conduction of supraventricular beat(s) no longer present Myocardial infarct finding still present Electronically Signed On 03-01-2023 16:43:55 CDT by Funmilayo Brown M.D. [email or web address]
--- NOTE | 2023-03-01 13:33 | W.ED.SOB ---
HPI - SOB/Dyspnea General: Chief Complaint: Shortness of Breath/Dyspnea Stated Complaint: chest pressure/ light headed Time Seen by Provider: 03/01/23 13:18 Source: patient Mode of arrival: ambulatory History of Present Illness: HPI Narrative: 67-year-old male presents emergency room with complaint of chest pain and shortness of breath began around 1030 this morning. He was sitting at his computer at the time. He has a history of congestive heart failure and renal failure. Patient chronically short of breath and chronically orthopneic and seems to have been worsening recently does have a productive cough in the morning that has not changed. He feels like he has been a little more short of breath than his norm the last week. Patient has a history of atrial fibrillation, he is on anticoagulants. No recent medication changes. MD elicited complaint: shortness of breath and cough Pertinent past history: congestive heart failure Onset (ago): week(s) (1) Timing: constant Severity: moderate Exacerbating factors: nothing Relieving factors: nothing Known history of: congestive heart failure Associated symptoms: Deny abdominal pain, chest congestion, chest pain, cough, diaphoresis, dizziness, extremity pain, fever(s), hemoptysis, lightheadedness, myalgias, nausea, orthopnea, palpitations, paresthesias, polydipsia, polyuria, rash, sense of impending doom, syncope or vomiting Treatment prior to arrival: none Review of Systems Const: Denies: fever(s), chills or diaphoresis Card: Denies: chest pain, palpitations, lightheadedness, syncope or orthopnea Resp: Denies: dyspnea, hemoptysis or chest congestion GI: Denies: abdominal pain, nausea or vomiting : Denies: dysuria, urinary frequency or urinary urgency Musc: Denies: neck pain, back pain or extremity pain Skin/Breast: Denies: rash Neuro: Denies: dizziness Endo: Denies: polyuria or polydipsia PFSH ED PFSH: Medical History Acute kidney injury superimposed on CKD Anemia Atrial fibrillation on anticoagulation Blood transfusion declined because patient is Sikhism Carpal tunnel syndrome Chest pain Patient underwent coronary angiogram which was normal Chronic anticoagulation CKD (chronic kidney disease) stage 3, GFR 30-59 ml/min COVID COVID-19 Dehydration Diabetes type 2, uncontrolled Diabetic neuropathy Diastolic heart failure Diverticulosis Dysphagia Dyspnea External hemorrhoids with complication GERD (gastroesophageal reflux disease) Gout Hyperlipidemia Hypertrophy of uvula Hypertrophy of uvula Low hemoglobin Melena Morbid obesity Morbid obesity with BMI of 60.0-69.9, adult Neuropathy LINDA on CPAP Osteoarthritis Otalgia Rectal bleeding Rectal polyp Renal insufficiency Improved after IV fluid Retrosternal thyroid goiter Rheumatoid arthritis In remission Seronegative rheumatoid arthritis in remission Stage 3 chronic kidney disease due to diabetes mellitus Substernal thyroid goiter Uncontrolled type 2 diabetes mellitus Ventral incisional hernia Vitamin D deficiency Surgical History History of colonoscopy History of esophagogastroduodenoscopy (EGD) History of uvulectomy S/P appendectomy S/P carpal tunnel release 2x left S/P cervical disc replacement S/P hernia repair S/P skin cancer resection S/P thyroid surgery S/P tonsillectomy S/P trigger finger release Family History Father Cancer Prostate Hypertension Hypercholesterolemia Heart disease Mother Hypertension Hypercholesterolemia Anesthesia complication Daughter Anesthesia complication Denies family history of Bleeding disorder Social History Smoking and tobacco/nicotine status: never used tobacco/nicotine Alcohol intake: former Substance/Drug Use: never Lives independently: Yes Household members: spouse Marital status: Current occupational status: disabled Alexandra/Rastafari: Sikhism Special alexandra needs: Yes Agree to transfusion: No Physical Exam Const: GENERAL APPEARANCE: cooperative and comfortable ORIENTATION/CONSCIOUSNESS: Yes awake, Yes oriented to person, Yes oriented to place and Yes oriented to time HENMT: COMMON NORMALS: normocephalic, atraumatic and hearing grossly normal bilaterally HEAD & SCALP: normocephalic and atraumatic Resp: COMMON NORMALS: normal respiratory effort, No retractions and No use of accessory muscles AUSCULTATION: crackles and rhonchi Cardio: COMMON NORMALS: regular rhythm and No murmurs present (Cardio) RATE: bradycardic RHYTHM: regular rhythm GI: COMMON NORMALS: Soft to palpation and No hepatosplenomegaly present AUSCULTATION: Yes normoactive bowel sounds PALPATION: Yes Soft to palpation, No Tenderness to palpation present (GI), No Guarding due to palpation present (GI) and Yes No hepatosplenomegaly present Extremity: COMMON NORMALS: normal to inspection, capillary refill normal, no clubbing, cyanosis or edema, no calf tenderness and no pedal edema Neuro: SENSORIUM/ORIENTATION: Yes oriented to person, Yes oriented to place and Yes oriented to time Skin: COMMON NORMALS: no rashes or lesions noted GENERAL SKIN EXAM: no rashes or lesions noted Course Vital Signs: Vital signs: Vital Signs Temperature 98.1 F 03/01/23 13:14 Pulse Rate 57 L 03/01/23 13:14 Respiratory Rate 20 H 03/01/23 13:14 Blood Pressure 156/74 03/01/23 13:14 Pulse Oximetry 96 03/01/23 16:50 Oxygen Delivery Me thod Nasal Cannula 03/01/23 13:14 Oxygen Flow Rate 2 03/01/23 13:14 MDM - SOB/Dyspnea Medical Decision Making Labs and imaging reviewed. No significant findings patient's kidney function is worsening just a bit. We did give him Lasix that helped improved things he is feeling somewhat better we are able to titrate him off of oxygen completely. Did do ambulatory oxygen testing which was also normal but does not qualify for oxygen. We will discharge patient home have him follow-up with his primary care doctor next week continue to take his regular dose of Lasix for now. Medical Records I reviewed the patient's medical records. Lab Data I reviewed the patient's lab results. 03/01/23 13:46 03/01/23 13:46 Labs/Radiology: Laboratory Results WBC 7.74 10^3/uL (3.29-11.43) 03/01/23 13:46 RBC 4.25 10^6/uL (3.85-5.65) 03/01/23 13:46 Hgb 8.00 g/dL (11.27-16.99) L 03/01/23 13:46 Hct 29.5 % (37-53) L 03/01/23 13:46 MCV 69.4 fl (82-101) L 03/01/23 13:46 MCH 18.8 pg (27-33) L 03/01/23 13:46 MCHC 27.1 g/dL (30-55) L 03/01/23 13:46 RDW 18.2 % (12.1-15.1) H 03/01/23 13:46 Plt Count 242 10^3/cmm (157-399) 03/01/23 13:46 MPV 9.9 fL (7.4-10.4) 03/01/23 13:46 Neut % (Auto) 70.9 % 03/01/23 13:46 Lymph % (Auto) 13.2 % 03/01/23 13:46 [place] % (Auto) 12.5 % 03/01/23 13:46 Eos % (Auto) 1.4 % 03/01/23 13:46 Baso % (Auto) 1.4 % 03/01/23 13:46 Neut # (Auto) 5.48 10^3/uL (1.8-7.7) 03/01/23 13:46 Lymph # (Auto) 1.0 10^3/uL (0.8-4.8) 03/01/23 13:46 [place] # (Auto) 1.0 10^3/uL (0.2-0.9) H 03/01/23 13:46 Eos # (Auto) 0.1 10^3/uL (0.0-0.8) 03/01/23 13:46 Baso # (Auto) 0.1 10^3/uL (0.0-0.1) 03/01/23 13:46 Nucleated RBC % (auto) 0.9 % 03/01/23 13:46 Nucleated RBCs # 0.1 /100WBC 03/01/23 13:46 Sodium 136 mmol/L (136-145) 03/01/23 13:46 Potassium 4.4 mmol/L (3.5-5.1) 03/01/23 13:46 Chloride 99 mmol/L (98-107) 03/01/23 13:46 Carbon Dioxide 26 mmol/L (22-29) 03/01/23 13:46 Anion Gap 15.4 (5-19) 03/01/23 13:46 BUN 26 mg/dL (8-23) H 03/01/23 13:46 Creatinine 1.9 mg/dL (0.7-1.2) H 03/01/23 13:46 GFR Calculation 35.5 mL/min (90-130) L 03/01/23 13:46 Glucose 154 mg/dL (65-115) H 03/01/23 13:46 Calculated Osmolality 290 mOsm/kg (285-295) 03/01/23 13:46 Calcium 8.6 mg/dL (8.5-10.5) 03/01/23 13:46 Total Bilirubin 0.3 mg/dL (0.15-1.2) 03/01/23 13:46 AST 15 U/L (0-40) 03/01/23 13:46 ALT 11 U/L (0-41) 03/01/23 13:46 Alkaline Phosphatase 49 U/L (40-130) 03/01/23 13:46 Troponin T Baseline 20 ng/L (0-15) H 03/01/23 13:46 Troponin T 120 Minute 17.43 ng/L (0-15) H 03/01/23 15:46 Delta Troponin T -2.57 ABS# (0-10) L 03/01/23 15:46 Total Protein 6.4 g/dL (6.6-8.7) L 03/01/23 13:46 Albumin 3.8 g/dL (3.5-5.2) 03/01/23 13:46 Globulin 2.6 g/dL (1.3-4.6) 03/01/23 13:46 All radiology interpretation(s) finalized by discharge Discharge Plan Discharge Patient Disposition: Home Clinical Impression: Anemia, CKD (chronic kidney disease) stage 3, GFR 30-59 ml/min, Diastolic heart failure, Morbid obesity with BMI of 60.0-69.9, adult Condition: Stable Prescriptions: No Action (DME) blood-glucose meter [Accu-Chek Guide Glucose Meter] Misc See Rx Instructions .ROUTE .MEDSUPPLY Qty: 1 0RF Rx Instructions: As directed (DME) lancets [Accu-Chek Fastclix Lancet Drum] Misc See Rx Instructions .ROUTE .MEDSUPPLY Qty: 200 3RF Rx Instructions: three times/day (DME) Diabetic shoes with molded inserts See Rx Instructions .Route .MEDSUPPLY Qty: 1 0RF Rx Instructions: As directed fenofibrate nanocrystallized 145 mg tablet 145 mg PO DAILY acyclovir 5 % ointment See Rx Instructions .ROUTE .COMPLEX Rx Instructions: aaa topically qid prn ergocalciferol (vitamin D2) 50,000 unit capsule 50,000 unit PO Q30D Rx Instructions: FIRST SUNDAY OF THE MONTH (DME) pen needle, diabetic 31 gauge x 1/4 needle See Rx Instructions .Route Qty: 100 3RF Rx Instructions: As directed acetaminophen [Tylenol Extra Strength] 500 mg tablet 1,000 mg PO Q6H PRN (Reason: Pain) mupirocin 2 % ointment 1 applic topical BID PRN (Reason: Rash) (DME) Diabetic shoes with 3 pairs of inserts See Rx Instructions .Route .MEDSUPPLY Qty: 1 0RF Rx Instructions: As directed allopurinol 100 mg tablet 200 mg PO DAILY Qty: 180 1RF leflunomide 20 mg tablet 20 mg PO DAILY Qty: 30 3RF isosorbide mononitrate 30 mg tablet extended release 24 hr 30 mg PO BID (DME) Diabetic shoes with inserts See Rx Instructions .Route .MEDSUPPLY Qty: 1 0RF Rx Instructions: As directed ketoconazole 2 % cream See Rx Instructions .ROUTE .COMPLEX Qty: 60 2RF Dose Instruction: APPLY CREAM TOPICALLY TO AFFECTED AREA TWICE DAILY FOR 30 DAYS Rx Instructions: APPLY CREAM TOPICALLY TO AFFECTED AREA TWICE DAILY FOR 30 DAYS (DME) pen needle, diabetic [BD Gabriella 2nd Gen Pen Needle] 32 gauge x 5/32 needle See Rx Instructions .Route Qty: 100 3RF Rx Instructions: As directed (DME) FreeStyle Huma 2 [place] Misc See Rx Instructions .Route Qty: 1 0RF Rx Instructions: Check BS 4 -6 times a day. (DME) FreeStyle Huma 2 Sensor Kit See Rx Instructions .Route Qty: 6 3RF Rx Instructions: Change every 14 days. rivaroxaban 20 mg tablet 20 mg PO DAILY Qty: 90 3RF Hold Instructions: Resume on 04/16/21. verapamil 240 mg tablet extended release 240 mg PO DAILY Qty: 90 3RF Hold Instructions: Dose Change nitroglycerin [Nitrostat] 0.4 mg tablet, sublingual 0.4 mg SUBLINGUAL DIRECTED PRN (Reason: CHEST PAIN) Qty: 25 2RF metoprolol tartrate 50 mg tablet 100 mg PO BID Qty: 240 3RF pantoprazole [Protonix] 40 mg tablet,delayed release (DR/EC) 40 mg PO BID 14 Days Qty: 28 0RF eplerenone 25 mg tablet 25 mg PO DAILY Qty: 90 3RF (DME) Accu-Chek Guide test strips Strip See Rx Instructions .ROUTE .MEDSUPPLY Qty: 300 0RF Rx Instructions: test blood sugar three times a day sacubitril-valsartan 49-51 mg tablet 1 tab PO BID 28 Days Qty: 180 1RF bumetanide 1 mg tablet 1 mg PO BID insulin glargine [Lantus Solostar U-100 Insulin] 100 unit/mL (3 mL) insulin pen 60 unit SUBCUT DAILY 30 Days Qty: 30 1RF insulin lispro 100 unit/mL insulin pen 40 unit SUBCUT TID 30 Days Qty: 36 1RF triamcinolone acetonide 0.1 % cream 1 applic topical BID PRN (Reason: joint inflamation) diclofenac sodium 1 % gel See Rx Instructions .ROUTE .COMPLEX PRN (Reason: Pain, Mild) Rx Instructions: 4 grams topically qid prn gabapentin 100 mg capsule 100 mg PO DAILY ropinirole 0.25 mg tablet 0.25 mg PO QPM clindamycin phosphate 1 % gel, once daily 1 applic TOPICAL DAILY prednisone 10 mg Tablet 10 mg PO DAILY PRN (Reason: joint pain) potassium chloride 20 mEq tablet,ER particles/crystals 20 meq PO DAILY Trulicity 3 mg/0.5 mL pen injector 3 mg SUBCUT Q7D Rx Instructions: on sunday ezetimibe 10 mg tablet 10 mg PO DAILY Discharge Orders: Discharge ED (Routine); Ordered 03/01/23 Ordered By: Qamar Morales Referrals: Samantha Vinson DO [Primary Care Provider] - Discharge Diet: Usual diet Discharge Activity: Increase activity as tolerated Patient Instructions: Opioid Safety, Pain Management Activity Restrictions/Additional Instructions: Thank you for choosing [facility] for your healthcare needs today. Please realize this is an emergency room and that we are providing you with a medical screening exam and this may not be complete and all inclusive of all the testing and or work up that you may need to determine your ailment or severity of your illness. It is very important that you follow up as instructed or that you return to the Emergency Department should you have concerns or if your condition changes or worsens in any way. You are seen and evaluated for complaints of shortness of breath. Chest x-ray did not show any worsening congestive heart failure kidney function is slightly worse follow-up with your doctor for this. Your hemoglobin is lower with a hemoglobin of 8 suspect that is the cause of your shortness of breath ambulatory oxygen saturation evaluation was normal and you are able to maintain normal sats on room air. Recommend you follow-up early next week with your primary care doctor return for worsening symptoms. Coding Level of Care Code ED Perl Programmer for Marcelle Bang
[2023-03-01 13:52] LABS: Basophils # 0.1 10^3/uL (0.0-0.1); Basophils % 1.4 %; Eosinophils # 0.1 10^3/uL (0.0-0.8); Eosinophils % 1.4 %; Hematocrit 29.5 % (37-53); Lymphocytes % 13.2 %; Mean Corpuscular HGB Conc 27.1 g/dL (30-55); Mean Corpuscular Hemoglobin 18.8 pg (27-33); Mean Corpuscular Volume 69.4 fl (82-101); Mean Platelet Volume 9.9 fL (7.4-10.4); Monocytes % 12.5 %; Neutrophils # 5.48 10^3/uL (1.8-7.7); Neutrophils % 70.9 %; Nucleated Red Blood Cells # 0.1 /100WBC; Nucleated Red Blood Cells % 0.9 %; Platelet Count 242 10^3/cmm (157-399); Red Blood Count 4.25 10^6/uL (3.85-5.65); Red Cell Distribution Width 18.2 % (12.1-15.1); White Blood Count 7.74 10^3/uL (3.29-11.43)
[2023-03-01 14:15] LABS: Alanine Aminotransferase 11 U/L (0-41); Albumin Level 3.8 g/dL (3.5-5.2); Alkaline Phosphatase 49 U/L (40-130); Anion Gap 15.4 (5-19); Aspartate Amino Transferase 15 U/L (0-40); Blood Urea Nitrogen 26 mg/dL (8-23); Calcium 8.6 mg/dL (8.5-10.5); Carbon Dioxide 26 mmol/L (22-29); Chloride 99 mmol/L (98-107); Globulin 2.6 g/dL (1.3-4.6); Glomerular Filtration Rate 35.5 mL/min (90-130); Glucose 154 mg/dL (65-115); Osmolality Calculated 290 mOsm/kg (285-295); Potassium 4.4 mmol/L (3.5-5.1); Sodium 136 mmol/L (136-145); Total Bilirubin 0.3 mg/dL (0.15-1.2); Total Protein 6.4 g/dL (6.6-8.7); Troponin(5th) Baseline 20 ng/L (0-15)
--- NOTE | 2023-03-01 15:19 | ECG_ITS ---
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 Measurements Intervals [place] Rate: 53 P: 0 NC: 0 QRS: -40 QRSD: 114 T: 30 QT: 449 QTc: 425 Interpretive Statements ATRIAL FIBRILLATION WITH SLOW VENTRICULAR RESPONSE LEFT AXIS DEVIATION [QRS AXIS < -30] LOW QRS VOLTAGE IN PRECORDIAL LEADS [QRS DEFLECTION < 1.0 mV IN CHEST LEADS] INCOMPLETE RIGHT BUNDLE BRANCH BLOCK SEPTAL MYOCARDIAL INFARCTION , OF INDETERMINATE AGE [40+ ms Q WAVE IN V1/V2] Compared to ECG 03/01/2023 13:31:27 No significant changes Electronically Signed On 03-01-2023 16:44:21 CDT by Funmilayo Brown M.D. [email or web address]
[2023-03-01 16:23] LABS: Troponin 5 2HR 17.43 ng/L (0-15)
[2023-03-01 16:25] LABS: Troponin 5 2HR Delta -2.57 ABS# (0-10)
[2023-03-01 16:50] VITALS: O2SAT 94; O2SAT 96
== END 2023-03-01 18:21 | disposition home or self-care (01) ==
PROVIDERS: Emergency Provider Family Medicine; PCP Family Medicine
DX: E11.22 Type 2 diabetes mellitus with diabetic chronic kidney disease (principal); N18.30 Chronic kidney disease, stage 3 unspecified; I50.30 Unspecified diastolic (congestive) heart failure; D64.9 Anemia, unspecified; E66.01 Morbid (severe) obesity due to excess calories; Z68.44 Body mass index [BMI] 60.0-69.9, adult; E11.40 Type 2 diabetes mellitus with diabetic neuropathy, unspecified; E78.5 Hyperlipidemia, unspecified
CPT/HCPCS: 36415; 71045; 80053; 84484; 85025; 93005; 99285

== ENCOUNTER 2023-03-07 13:39 | Outpatient (CLI) | payer MEDICARE, MEDICAID, SELFPAY ==
--- NOTE | 2023-03-07 13:45 | US_ITS ---
WS: [id number] THYROID ULTRASOUND HISTORY: Goiter. COMPARISON: 12/29/2021 Right lobe: 1.7 cm x 1.7 cm x 3.5 cm (w x ap x l). Volume: 5.4 cm3. The entire RIGHT thyroid has not been imaged. The thyroid is larger than the measurements indicate. T his is a very heterogeneous thyroid variable echogenicity. Left lobe: 1.7 cm x 2.1 cm x 4.0 cm (w x ap x l). Volume: 7.3 cm3. Enlarged thyroid. The entire thyroid is not been imaged or measured correctly. Very heterogeneous den se thyroid. Isthmus: 0.5 cm. IMPRESSION: 1. Abnormal thyroid. Thyroid is enlarged and very dense with poor ultrasound penetration. Probably re presenting a goiter. Some of the nodules that have been previously described are not as apparent toda y. This is probably due to poor visualization of the entire gland.
[2023-03-07 16:18] LABS: Estmated Average Glucose 151; Hemoglobin A1C 6.9 % (4.0-6.0)
[2023-03-07 16:54] LABS: Alanine Aminotransferase 8 U/L (0-41); Albumin Level 4.1 g/dL (3.5-5.2); Alkaline Phosphatase 49 U/L (40-130); Anion Gap 16.5 (5-19); Aspartate Amino Transferase 14 U/L (0-40); Blood Urea Nitrogen 26 mg/dL (8-23); Calcium 8.8 mg/dL (8.5-10.5); Carbon Dioxide 28 mmol/L (22-29); Chloride 104 mmol/L (98-107); Cholesterol 150 mg/dL (0-200); Globulin 2.5 g/dL (1.3-4.6); Glomerular Filtration Rate 50.5 mL/min (90-130); Glucose 110 mg/dL (65-115); HDL Cholesterol 30 mg/dL (60-100); LDL Cholesterol Calculated 82 mg/dL (50-129); LDL HDL Ratio 2.73 RATIO (0.00-3.22); NT Pro B Type Natriuretic Pept 1417 pg/mL (0-125); Osmolality Calculated 303 mOsm/kg (285-295); Potassium 4.5 mmol/L (3.5-5.1); Sodium 144 mmol/L (136-145); Total Bilirubin 0.3 mg/dL (0.15-1.2); Total Protein 6.6 g/dL (6.6-8.7); Triglycerides 191 mg/dL (0-150)
== END 2023-03-07 13:40 | disposition home or self-care (01) ==
LOC: RAD 13:39
PROVIDERS: Internal Medicine; PCP Family Medicine; Visit Provider Otolaryngology
DX: E04.9 Nontoxic goiter, unspecified (principal); D64.9 Anemia, unspecified; I48.20 Chronic atrial fibrillation, unspecified; E78.5 Hyperlipidemia, unspecified; E11.40 Type 2 diabetes mellitus with diabetic neuropathy, unspecified; R07.89 Other chest pain; R06.00 Dyspnea, unspecified; I95.9 Hypotension, unspecified; I50.30 Unspecified diastolic (congestive) heart failure; Z79.899 Other long term (current) drug therapy
CPT/HCPCS: 36415; 76536; 80053; 80061; 83036; 83880; 99214

== ENCOUNTER 2023-03-09 13:22 | Emergency (ER) | payer MEDICARE, MEDICAID, SELFPAY ==
[2023-03-09] VITALS (7 sets, daily range): BP systolic 121–137; BP diastolic 58–68; PULSE 51–90; RESP 18–20; TEMP 36.4; O2SAT 96–99; BMI 56.7
--- NOTE | 2023-03-09 13:26 | XRR_ITS ---
PROCEDURE INFORMATION: Exam: XR Chest Exam date and time: 03/09/2023 1:48 PM Age: 67 years old Clinical indication: Pain; Angina pectoris; Additional info: Chest pain TECHNIQUE: Imaging protocol: Radiologic exam of the chest. Views: 1 view. COMPARISON: CR XR chest 1V portable [id number] 03/01/2023 1:26 PM FINDINGS: Lungs: Unremarkable. No consolidation. Pleural spaces: Unremarkable. No pleural effusion. No pneumothorax. Heart/Mediastinum: Unremarkable. No cardiomegaly. Bones/joints: Previous anterior cervical spine fusion. XR/XR chest 1V portable [id number] IMPRESSION: No acute findings.
--- NOTE | 2023-03-09 13:33 | ECG_ITS ---
[facility] Test Date: 2023-03-09 Pat Name: Mauro Solis Department: Room: Gender: Male Financial Aid Administrator: : 1955 Requested By: Mallory Dow Order Number: [id number] Sandi MD: Patrick Roach M.D. Measurements Intervals [place] Rate: 52 P: 0 HI: 0 QRS: -53 QRSD: 109 T: 54 QT: 437 QTc: 409 Interpretive Statements ATRIAL FIBRILLATION WITH SLOW VENTRICULAR RESPONSE LOW QRS VOLTAGE IN PRECORDIAL LEADS [QRS DEFLECTION < 1.0 mV IN CHEST LEADS] INCOMPLETE RIGHT BUNDLE BRANCH BLOCK [90+ ms QRS DURATION, TERMINAL R IN V1/V2, 40+ ms S IN I/aVL/V4/V5/V6] LEFT ANTERIOR FASCICULAR BLOCK [QRS AXIS <= -45, QR IN I, RS IN II] ANTEROSEPTAL MYOCARDIAL INFARCTION , OF INDETERMINATE AGE [40+ ms Q WAVE IN V1-V4] Compared to ECG 03/01/2023 15:20:55 Left anterior fascicular block now present Left-axis deviation no longer present Myocardial infarct finding still present Electronically Signed On 03-09-2023 19:37:09 CDT by Patrick Roach M.D. [id number]
--- NOTE | 2023-03-09 13:34 | ED_ITS ---
Documented by User: CHEMA Edmondson 03/09/23 16:33 HPI - Chest Pain General: Chief Complaint: Chest Pain Stated Complaint: chest pressure Time Seen by Provider: 03/09/23 13:25 Source: patient and EMS Mode of arrival: EMS Limitations: no limitations History of Present Illness: Patient is a 67-year-old male with an extensive past medical history here via EMS for evaluation of chest pain and shortness of breath. According to patient he was leaving a restaurant when he began having chest tightness and heaviness as well as associated shortness of breath. He states his drove him to the ambulance bay. EMS states upon arrival patient seemed dyspneic and pale. He w as satting roughly 90 to 92% on room air thus was placed on oxygen. He was given 3 nitros in route and upon arrival to the emergency department he feels like his chest pain has improved. Patient has a history of CHF, CKD, chronic anemia (had EGD in September for this and was referred to GI in [place]), atrial fibrillation, diabetes, morbid obesity. He just saw his cover making machine operator two days ago. States last echo/stress test was quite a while ago . MD complaint: chest pain Onset (ago): hour(s) Prior episodes: Yes Onset: other (while walking) Pain location: substernal Pain radiation: neck Severity: moderate Quality: tightness Relieving factors: nitroglycerin Associated symptoms: Reports dyspnea; Deny abdominal pain, fever(s), nausea, palpitations, syncope or vomiting Treatment prior to arrival: nitroglycerin and oxygen Risk Factors: Coronary artery disease risk factors: diabetes, hyperlipidemia and hypertension Thoracic aortic dissection risk factors: none Review of Systems Const: Denies: fever(s), chills, body aches, fatigue or malaise Eyes: Denies: change in vision or blurry vision Card: Reports: chest pain, irregular heart rhythm (chronic atrial fibrillation), swelling of feet/ankles (chronic) and dyspnea on exertion (chronic); Denies: palpitations, lightheadedness, syncope, pre-syncope, leg pain with exertion or acrocyanosis Resp: Reports: dyspnea; Denies: productive cough, non-productive cough, wheezing, stridor, pain on i nspiration, change in phlegm color, hemoptysis or chest congestion GI: Denies: abdominal pain, nausea, vomiting, heartburn or diarrhea : Denies: difficulty urinating or dysuria Musc: Reports: extremity swelling (chronic); Denies: neck pain, back pain, extremity pain or joint pain Skin/Breast: Denies: rash Neuro: Denies: headache(s), numbness in extremities, weakness in extremities or sensory changes PFS ED PFSH: Medical History Acute kidney injury superimposed on CKD Anemia Atrial fibrillation on anticoagulation Blood transfusion declined because patient is Hoahaoism Carpal tunnel syndrome Chest pain Patient underwent coronary angiogram which was normal Chronic anticoagulation CKD (chronic kidney disease) stage 3, GFR 30-59 ml/min COVID COVID-19 Dehydration Diabetes type 2, uncontrolled Diabetic neuropathy Diastolic heart failure Diverticulosis Dysphagia Dyspnea External hemorrhoids with complication GERD (gastroesophageal reflux disease) Gout Hyperlipidemia Hypertrophy of uvula Hypertrophy of uvula Low hemoglobin Melena Morbid obesity Morbid obesity with BMI of 60.0-69.9, adult Neuropathy LINDA on CPAP Osteoarthritis Otalgia Rectal bleeding Rectal polyp Renal insufficiency Improved after IV fluid Retrosternal thyroid goiter Rheumatoid arthritis In remission Seronegative rheumatoid arthritis in remission Stage 3 chronic kidney disease due to diabetes mellitus Substernal thyroid goiter Uncontrolled type 2 diabetes mellitus Ventral incisional hernia Vitamin D deficiency Surgical History History of colonoscopy History of esophagogastroduodenoscopy (EGD) History of uvulectomy S/P appendectomy S/P carpal tunnel release 2x left S/P cervical disc replacement S/P hernia repair S/P skin cancer resection S/P thyroid surgery S/P tonsillectomy S/P trigger finger release Family History Father Cancer Prostate Hypertension Hypercholesterolemia Heart disease Mother Hypertension Hypercholesterolemia Anesthesia complication Daughter Anesthesia complication Denies family history of Bleeding disorder Social History Smoking and tobacco/nicotine status: never used tobacco/nicotine Alcohol intake: former Substance/Drug Use: never Lives independently: Yes Household members: spouse Marital status: Current occupational status: disabled Alexandra/Anabaptist: Hoahaoism Special alexandra needs: Yes Agree to transfusion: No Physical Exam Const: COMMON NORMALS: no acute distress, patient oriented x3, no limitations, alert and well nourished GENERAL APPEARANCE: cooperative NUTRITIONAL APPEARANCE: obese morbidly obese (BMI over 56) ORIENTATION/CONSCIOUSNESS: Yes awake, Yes oriented to person, Yes oriented to place and Yes oriented to time HENMT: COMMON NORMALS: normocephalic and atraumatic HEAD & SCALP: normal to inspection, normocephalic and atraumatic Eye: GENERAL EYE: appearance normal, both eyes and all related structures Neck/C-Spine: COMMON NORMALS: full ROM, no lymphadenopathy, supple, no meningeal signs, no JVD and No carotid bruits Chest: COMMONS NORMALS: normal inspection of the chest and normal palpation of entire chest wall Resp: COMMON NORMALS: normal respiratory effort and clear to auscultation bilaterally AUSCULTATION: clear to auscultation bilaterally and diminished lung sounds OTHER: on 2L via EMS Cardio: COMMON NORMALS: no JVD RATE: bradycardic RHYTHM: abnormal rhythm (known atrial fib) GI: COMMON NORMALS: Normal to inspection, nondistended, normoactive bowel sounds present, Soft to palpation, non-tender and No hepatosplenomegaly present INSPECTION: Yes normal to inspection and Yes other (large chronic ventral hernia) AUSCULTATION: Yes normoactive bowel sounds PALPATION: Yes Soft to palpation and Yes No hepatosplenomegaly present : COMMON NORMALS: Yes no CVA tenderness BLADDER/KIDNEY EXAM: Yes no CVA t enderness Back/Pelvis: COMMON NORMALS: no CVA tenderness and thoracic and lumbar spine normal to inspection Extremity: COMMON NORMALS: normal to inspection GENERAL: Yes normal exam except as noted and Yes edema (chronic bilateral 1+ pitting edema) Neuro: COMMON NORMALS: patient oriented x3, moves all extremities, no focal motor deficits and no sensory deficits noted SENSORIUM/ORIENTATION: Yes alert, Yes oriented to person, Yes oriented to place and Yes oriented to time MENINGEAL SIGNS: Yes no meningeal signs Skin: COMMON NORMALS: no rashes or lesions noted GENERAL SKIN EXAM: no rashes or lesions noted Course Vital Signs: Vital signs: Vital Signs Temperature 97.6 F 03/09/23 13:33 Pulse Rate 90 03/09/23 17:21 Respiratory Rate 18 03/09/23 17:21 Blood Pressure 127/67 03/09/23 17:21 Pulse Oximetry 97 03/09/23 17:21 Oxygen Delivery Me thod Room Air 03/09/23 17:19 Oxygen Flow Rate 2 03/09/23 13:33 MDM - Chest Pain Medical Decision Making Patient here for an episode of chest pain and shortness of breath earlier today. Patient has been having these episodes for quite a while now. He arrives with stable vital signs. He clinically appears in no acute distress. EKG showing atrial flutter fibrillation with slow ventricular response with a rate of 52. This appears unchanged from his EKG on 03/01. On blood work he is anemic with a hemoglobin of 7.8. Over the past 6 months or so his hemoglobin has averaged 8- 9. He states he is a Hoahaoism patient and cannot accept blood products. Patient has CKD. His creatinine today is slightly worse than baseline at 1.9. He's got a baseline troponin of 16 which is his normal. Negative delta. BNP is elevated compared to baseline at roughly 1600. CXR doesn't show any acute signs of overload. He is satting normal on RA. Swelling to bilateral LEs seems at baseline per patient. I spoke to patient's car diologist Dr. Power as he just saw patient 2 days ago-he felt if troponins were negative and we can effectively rule out acute coronary syndrome then he can safely be discharged with follow up with cardiology next week. Recommended increasing his Bumex to 2mg in the morning and 1mg in the evening. Recommended stress/echo be ordered as an outpatient-this can be discussed at this cardiology follow up appointment. Return to ED precautions given. Discussed case/EKGs with Dr. Morales who agrees with care plan/assessment for patient. Lab Data 03/09/23 13:46 03/09/23 13:46 Radiology Impressions Chest X-Ray 03/09/23 13:26 IMPRESSION: No acute findings. Laboratory Results WBC 8.14 10^3/uL (3.29-11.43) 03/09/23 13:46 RBC 4.20 10^6/uL (3.85-5.65) 03/09/23 13:46 Hgb 7.80 g/dL (11.27-16.99) L 03/09/23 13:46 Hct 29.7 % (37-53) L 03/09/23 13:46 MCV 70.7 fl (82-101) L 03/09/23 13:46 MCH 18.6 pg (27-33) L 03/09/23 13:46 MCHC 26.3 g/dL (30-55) L 03/09/23 13:46 RDW 18.5 % (12.1-15.1) H 03/09/23 13:46 Plt Count 261 10^3/cmm (157-399) 03/09/23 13:46 MPV 9.9 fL (7.4-10.4) 03/09/23 13:46 Neut % (Auto) 72.9 % 03/09/23 13:46 Lymph % (Auto) 15.4 % 03/09/23 13:46 [place] % (Auto) 9.0 % 03/09/23 13:46 Eos % (Auto) 1.1 % 03/09/23 13:46 Baso % (Auto) 1.2 % 03/09/23 13:46 Neut # (Auto) 5.94 10^3/uL (1.8-7.7) 03/09/23 13:46 Lymph # (Auto) 1.3 10^3/uL (0.8-4.8) 03/09/23 13:46 [place] # (Auto) 0.7 10^3/uL (0.2-0.9) 03/09/23 13:46 Eos # (Auto) 0.1 10^3/uL (0.0-0.8) 03/09/23 13:46 Baso # (Auto) 0.1 10^3/uL (0.0-0.1) 03/09/23 13:46 Nucleated RBC % (auto) 0.2 % 03/09/23 13:46 Nucleated RBCs # 0.0 /100WBC 03/09/23 13:46 Sodium 139 mmol/L (136-145) 03/09/23 13:46 Potassium 4.5 mmol/L (3.5-5.1) 03/09/23 13:46 Chloride 102 mmol/L (98-107) 03/09/23 13:46 Carbon Dioxide 27 mmol/L (22-29) 03/09/23 13:46 Anion Gap 14.5 (5-19) 03/09/23 13:46 BUN 27 mg/dL (8-23) H 03/09/23 13:46 Creatinine 1.9 mg/dL (0.7-1.2) H 03/09/23 13:46 GFR Calculation 35.5 mL/min (90-130) L 03/09/23 13:46 Glucose 182 mg/dL (65-115) H 03/09/23 13:46 Calculated Osmolality 298 mOsm/kg (285-295) H 03/09/23 13:46 Calcium 8.3 mg/dL (8.5-10.5) L 03/09/23 13:46 Total Bilirubin 0.2 mg/dL (0.15-1.2) 03/09/23 13:46 AST 13 U/L (0-40) 03/09/23 13:46 ALT 8 U/L (0-41) 03/09/23 13:46 Alkaline Phosphatase 44 U/L (40-130) 03/09/23 13:46 Troponin T Baseline 16 ng/L (0-15) H 03/09/23 13:46 Troponin T 120 Minute 14.70 ng/L (0-15) 03/09/23 15:48 Delta Troponin T -1.30 ABS# (0-10) L 03/09/23 15:48 NT-Pro-B Natriuret Pep 1597 pg/mL (0-125) H 03/09/23 13:46 Total Protein 6.1 g/dL (6.6-8.7) L 03/09/23 13:46 Albumin 3.7 g/dL (3.5-5.2) 03/09/23 13:46 Globulin 2.4 g/dL (1.3-4.6) 03/09/23 13:46 All radiology interpretation(s) finalized by discharge Discharge Plan Discharge Patient Disposition: Home Clinical Impression: CHF (congestive heart failure) Condition: Stable Prescriptions: No Action (DME) blood-glucose meter [Accu-Chek Guide Glucose Meter] Misc See Rx Instructions .ROUTE .MEDSUPPLY Qty: 1 0RF Rx Instructions: As directed (DME) lancets [Accu-Chek Fastclix Lancet Drum] Misc See Rx Instructions .ROUTE .MEDSUPPLY Qty: 200 3RF Rx Instructions: three times/day (DME) Diabetic shoes with molded inserts See Rx Instructions .Route .MEDSUPPLY Qty: 1 0RF Rx Instructions: As directed fenofibrate nanocrystallized 145 mg tablet 145 mg PO DAILY ergocalciferol (vitamin D2) 50,000 unit capsule 50,000 unit PO Q30D Rx Instructions: FIRST SUNDAY OF THE MONTH (DME) pen needle, diabetic 31 gauge x 1/4 needle See Rx Instructions .Route Qty: 100 3RF Rx Instructions: As directed acetaminophen [Tylenol Extra Strength] 500 mg tablet 1,000 mg PO Q6H PRN (Reason: Pain) mupirocin 2 % ointment 1 applic topical BID PRN (Reason: Rash) (DME) Diabetic shoes with 3 pairs of inserts See Rx Instructions .Route .MEDSUPPLY Qty: 1 0RF Rx Instructions: As directed allopurinol 100 mg tablet 200 mg PO DAILY Qty: 180 1RF leflunomide 20 mg tablet 20 mg PO DAILY Qty: 30 3RF Entresto 24-26 mg tablet 1 tab PO BID Qty: 180 3RF (DME) Diabetic shoes with inserts See Rx Instructions .Route .MEDSUPPLY Qty: 1 0RF Rx Instructions: As directed ketoconazole 2 % cream See Rx Instructions .ROUTE .COMPLEX Qty: 60 2RF Dose Instruction: APPLY CREAM TOPICALLY TO AFFECTED AREA TWICE DAILY FOR 30 DAYS Rx Instructions: APPLY CREAM TOPICALLY TO AFFECTED AREA TWICE DAILY FOR 30 DAYS ([facility]) pen needle, diabetic [BD Gabriella 2nd Gen Pen Needle] 32 gauge x 5/32 needle See Rx Instructions .Route Qty: 100 3RF Rx Instructions: As directed ([facility]) FreeStyle Huma 2 [place] Misc See Rx Instructions .Route Qty: 1 0RF Rx Instructions: Check BS 4 -6 times a day. ([facility]) FreeStyle Huma 2 Sensor Kit See Rx Instructions .Route Qty: 6 3RF Rx Instructions: Change every 14 days. verapamil 240 mg tablet extended release 240 mg PO DAILY Qty: 90 3RF Hold Instructions: Dose Change nitroglycerin [Nitrostat] 0.4 mg tablet, sublingual 0.4 mg SUBLINGUAL DIRECTED PRN (Reason: CHEST PAIN) Qty: 25 2RF metoprolol tartrate 50 mg tablet 100 mg PO BID Qty: 240 3RF pantoprazole [Protonix] 40 mg tablet,delayed release (DR/EC) 40 mg PO BID 14 Days Qty: 28 0RF eplerenone 25 mg tablet 25 mg PO DAILY Qty: 90 3RF (DME) Accu-Chek Guide test strips Strip See Rx Instructions .ROUTE .MEDSUPPLY Qty: 300 0RF Rx Instructions: test blood sugar three times a day bumetanide 1 mg tablet 1 mg PO BID insulin lispro 100 unit/mL insulin pen 40 unit SUBCUT TID 30 Days Qty: 36 1RF rivaroxaban 20 mg tablet 20 mg PO DAILY Qty: 90 3RF Hold Instructions: Resume on 04/16/21. triamcinolone acetonide 0.1 % cream 1 applic topical BID PRN (Reason: joint inflamation) diclofenac sodium 1 % gel See Rx Instructions .ROUTE .COMPLEX PRN (Reason: Pain, Mild) Rx Instructions: 4 grams topically 4 times daily as needed gabapentin 100 mg capsule 100 mg PO DAILY ropinirole 0.25 mg tablet 0.25 mg PO QPM clindamycin phosphate 1 % gel, once daily 1 applic TOPICAL DAILY ketoconazole 2 % shampoo See Rx Instructions .ROUTE .COMPLEX Rx Instructions: 1 applic topically ;APPLY SHAMPOO TO SCALP AND FACE 2-3 TIMES WEEKLY, LETTING SIT 5 MINUTES THEN RINSE Lantus Solostar U-100 Insulin 100 unit/mL (3 mL) insulin pen 60 unit SUBCUT QPM isosorbide mononitrate 30 mg tablet extended release 24 hr 60 mg PO BID potassium chloride 20 mEq tablet,ER particles/crystals 20 meq PO DAILY famotidine 20 mg tablet 20 mg PO BID prednisone 10 mg Tablet 10 mg PO DAILY PRN (Reason: joint pain) Trulicity 3 mg/0.5 mL pen injector 3 mg SUBCUT Q7D Rx Instructions: on sunday ezetimibe 10 mg tablet 10 mg PO DAILY Discharge Orders: Discharge ED (Routine); Ordered 03/09/23 Ordered By: Mallory Dow Referrals: Samantha Vinson DO [Primary Care Provider] - Activity Restrictions/Additional Instructions: As we discussed I spoke with your cover making machine operator Dr. Power. At this time we will increase your Bumex to 2 mg in the morning and continue your normal 1 mg tablet in the evenings. He wanted you to follow-up with the cardiology office with their nurse practitioner Alanna next week for further evaluation and follow- up. He discussed performing stress test and echocardiogram as an outpatient. You need to return to the emergency department for further episodes of chest pain, severe shortness of breath or difficulty breathing, or any other concerns you may have. Hope you begin to feel better soon. Coding Level of Care Code ED Mushroom Growing Supervisor for Chg Fwd Documented by User: Qamar Morales DO 03/09/23 17:30 HPI - Chest Pain General: Chief Complaint: Chest Pain Stated Complaint: chest pressure Time Seen by Provider: 03/09/23 13:25 PFSH ED PFSH: Medical History Acute kidney injury superimposed on CKD Anemia Atrial fibrillation on anticoagulation Blood transfusion declined because patient is Hoahaoism Carpal tunnel syndrome Chest pain Patient underwent coronary angiogram which was normal Chronic anticoagulation CKD (chronic kidney disease) stage 3, GFR 30-59 ml/min COVID COVID-19 Dehydration Diabetes type 2, uncontrolled Diabetic neuropathy Diastolic heart failure Diverticulosis Dysphagia Dyspnea External hemorrhoids with complication GERD (gastroesophageal reflux disease) Gout Hyperlipidemia Hypertrophy of uvula Hypertrophy of uvula Low hemoglobin Melena Morbid obesity Morbid obesity with BMI of 60.0-69.9, adult Neuropathy LINDA on CPAP Osteoarthritis Otalgia Rectal bleeding Rectal polyp Renal insufficiency Improved after IV fluid Retrosternal thyroid goiter Rheumatoid arthritis In remission Seronegative rheumatoid arthritis in remission Stage 3 chronic kidney disease due to diabetes mellitus Substernal thyroid goiter Uncontrolled type 2 diabetes mellitus Ventral incisional hernia Vitamin D deficiency Surgical History History of colonoscopy History of esophagogastroduodenoscopy (EGD) History of uvulectomy S/P appendectomy S/P carpal tunnel release 2x left S/P cervical disc replacement S/P hernia repair S/P skin cancer resection S/P thyroid surgery S/P tonsillectomy S/P trigger finger release Family History Father Cancer Prostate Hypertension Hypercholesterolemia Heart disease Mother Hypertension Hypercholesterolemia Anesthesia complication Daughter Anesthesia complication Denies family history of Bleeding disorder Social History Smoking and tobacco/nicotine status: never used tobacco/nicotine Alcohol intake: former Substance/Drug Use: never Lives independently: Yes Household members: spouse Marital status: Current occupational status: disabled Alexandra/Anabaptist: Hoahaoism Special alexandra needs: Yes Agree to transfusion: No Course Vital Signs: Vital signs: Vital Signs Temperature 97.6 F 03/09/23 13:33 Pulse Rate 90 03/09/23 17:21 Respiratory Rate 18 03/09/23 17:21 Blood Pressure 127/67 03/09/23 17:21 Pulse Oximetry 97 03/09/23 17:21 Oxygen Delivery Me thod Room Air 03/09/23 17:19 Oxygen Flow Rate 2 03/09/23 13:33 MDM - Chest Pain Medical Decision Making Patient here for an episode of chest pain and shortness of breath earlier today. Patient has been having these episodes for quite a while now. He arrives with stable vital signs. He clinically appears in no acute distress. EKG showing atrial flutter fibrillation with slow ventricular response with a rate of 52. This appears unchanged from his EKG on 03/01. On blood work he is anemic with a hemoglobin of 7.8. Over the past 6 months or so his hemoglobin has averaged 8- 9. He states he is a Hoahaoism patient and cannot accept blood products. Patient has CKD. His creatinine today is slightly worse than baseline at 1.9. He's got a baseline troponin of 16 which is his normal. Negative delta. BNP is elevated compared to baseline at roughly 1600. CXR doesn't show any acute signs of overload. He is satting normal on RA. Swelling to bilateral LEs seems at baseline per patient. I spoke to patient's cover making machine operator Dr. Power as he just saw patient 2 days ago-he felt if troponins were negative and we can effectively rule out acute coronary syndrome then he can safely be discharged with follow up with cardiology next week. Recommended increasing his Bumex to 2mg in the morning and 1mg in the evening. Recommended stress/echo be ordered as an outpatient-this can be discussed at this cardiology follow up appointment. Return to ED precautions given. Discussed case/EKGs with Dr. Morales who agrees with care plan/assessment for patient. Chart reviewed and patient discussed with midlevel. Agree with assessment and plan. Lab Data 03/09/23 13:46 03/09/23 13:46 Radiology Impressions Chest X-Ray 03/09/23 13:26 IMPRESSION: No acute findings. Laboratory Results WBC 8.14 10^3/uL (3.29-11.43) 03/09/23 13:46 RBC 4.20 10^6/uL (3.85-5.65) 03/09/23 13:46 Hgb 7.80 g/dL (11.27-16.99) L 03/09/23 13:46 Hct 29.7 % (37-53) L 03/09/23 13:46 MCV 70.7 fl (82-101) L 03/09/23 13:46 MCH 18.6 pg (27-33) L 03/09/23 13:46 MCHC 26.3 g/dL (30-55) L 03/09/23 13:46 RDW 18.5 % (12.1-15.1) H 03/09/23 13:46 Plt Count 261 10^3/cmm (157-399) 03/09/23 13:46 MPV 9.9 fL (7.4-10.4) 03/09/23 13:46 Neut % (Auto) 72.9 % 03/09/23 13:46 Lymph % (Auto) 15.4 % 03/09/23 13:46 [place] % (Auto) 9.0 % 03/09/23 13:46 Eos % (Auto) 1.1 % 03/09/23 13:46 Baso % (Auto) 1.2 % 03/09/23 13:46 Neut # (Auto) 5.94 10^3/uL (1.8-7.7) 03/09/23 13:46 Lymph # (Auto) 1.3 10^3/uL (0.8-4.8) 03/09/23 13:46 [place] # (Auto) 0.7 10^3/uL (0.2-0.9) 03/09/23 13:46 Eos # (Auto) 0.1 10^3/uL (0.0-0.8) 03/09/23 13:46 Baso # (Auto) 0.1 10^3/uL (0.0-0.1) 03/09/23 13:46 Nucleated RBC % (auto) 0.2 % 03/09/23 13:46 Nucleated RBCs # 0.0 /100WBC 03/09/23 13:46 Sodium 139 mmol/L (136-145) 03/09/23 13:46 Potassium 4.5 mmol/L (3.5-5.1) 03/09/23 13:46 Chloride 102 mmol/L (98-107) 03/09/23 13:46 Carbon Dioxide 27 mmol/L (22-29) 03/09/23 13:46 Anion Gap 14.5 (5-19) 03/09/23 13:46 BUN 27 mg/dL (8-23) H 03/09/23 13:46 Creatinine 1.9 mg/dL (0.7-1.2) H 03/09/23 13:46 GFR Calculation 35.5 mL/min (90-130) L 03/09/23 13:46 Glucose 182 mg/dL (65-115) H 03/09/23 13:46 Calculated Osmolality 298 mOsm/kg (285-295) H 03/09/23 13:46 Calcium 8.3 mg/dL (8.5-10.5) L 03/09/23 13:46 Total Bilirubin 0.2 mg/dL (0.15-1.2) 03/09/23 13:46 AST 13 U/L (0-40) 03/09/23 13:46 ALT 8 U/L (0-41) 03/09/23 13:46 Alkaline Phosphatase 44 U/L (40-130) 03/09/23 13:46 Troponin T Baseline 16 ng/L (0-15) H 03/09/23 13:46 Troponin T 120 Minute 14.70 ng/L (0-15) 03/09/23 15:48 Delta Troponin T -1.30 ABS# (0-10) L 03/09/23 15:48 NT-Pro-B Natriuret Pep 1597 pg/mL (0-125) H 03/09/23 13:46 Total Protein 6.1 g/dL (6.6-8.7) L 03/09/23 13:46 Albumin 3.7 g/dL (3.5-5.2) 03/09/23 13:46 Globulin 2.4 g/dL (1.3-4.6) 03/09/23 13:46 Discharge Plan Discharge Patient Disposition: Home Clinical Impression: CHF (congestive heart failure) Condition: Stable Prescriptions: No Action (DME) blood-glucose meter [Accu-Chek Guide Glucose Meter] Misc See Rx Instructions .ROUTE .MEDSUPPLY Qty: 1 0RF Rx Instructions: As directed (DME) lancets [Accu-Chek Fastclix Lancet Drum] Misc See Rx Instructions .ROUTE .MEDSUPPLY Qty: 200 3RF Rx Instructions: three times/day (DME) Diabetic shoes with molded inserts See Rx Instructions .Route .MEDSUPPLY Qty: 1 0RF Rx Instructions: As directed fenofibrate nanocrystallized 145 mg tablet 145 mg PO DAILY ergocalciferol (vitamin D2) 50,000 unit capsule 50,000 unit PO Q30D Rx Instructions: FIRST SUNDAY OF THE MONTH (DME) pen needle, diabetic 31 gauge x 1/4 needle See Rx Instructions .Route Qty: 100 3RF Rx Instructions: As directed acetaminophen [Tylenol Extra Strength] 500 mg tablet 1,000 mg PO Q6H PRN (Reason: Pain) mupirocin 2 % ointment 1 applic topical BID PRN (Reason: Rash) (DME) Diabetic shoes with 3 pairs of inserts See Rx Instructions .Route .MEDSUPPLY Qty: 1 0RF Rx Instructions: As directed allopurinol 100 mg tablet 200 mg PO DAILY Qty: 180 1RF leflunomide 20 mg tablet 20 mg PO DAILY Qty: 30 3RF Entresto 24-26 mg tablet 1 tab PO BID Qty: 180 3RF (DME) Diabetic shoes with inserts See Rx Instructions .Route .MEDSUPPLY Qty: 1 0RF Rx Instructions: As directed ketoconazole 2 % cream See Rx Instructions .ROUTE .COMPLEX Qty: 60 2RF Dose Instruction: APPLY CREAM TOPICALLY TO AFFECTED AREA TWICE DAILY FOR 30 DAYS Rx Instructions: APPLY CREAM TOPICALLY TO AFFECTED AREA TWICE DAILY FOR 30 DAYS (DME) pen needle, diabetic [BD Gabriella 2nd Gen Pen Needle] 32 gauge x 5/32 needle See Rx Instructions .Route Qty: 100 3RF Rx Instructions: As directed (DME) FreeStyle Huma 2 [place] Misc See Rx Instructions .Route Qty: 1 0RF Rx Instructions: Check BS 4 -6 times a day. (DME) FreeStyle Huma 2 Sensor Kit See Rx Instructions .Route Qty: 6 3RF Rx Instructions: Change every 14 days. verapamil 240 mg tablet extended release 240 mg PO DAILY Qty: 90 3RF Hold Instructions: Dose Change nitroglycerin [Nitrostat] 0.4 mg tablet, sublingual 0.4 mg SUBLINGUAL DIRECTED PRN (Reason: CHEST PAIN) Qty: 25 2RF metoprolol tartrate 50 mg tablet 100 mg PO BID Qty: 240 3RF pantoprazole [Protonix] 40 mg tablet,delayed release (DR/EC) 40 mg PO BID 14 Days Qty: 28 0RF eplerenone 25 mg tablet 25 mg PO DAILY Qty: 90 3RF (DME) Accu-Chek Guide test strips Strip See Rx Instructions .ROUTE .MEDSUPPLY Qty: 300 0RF Rx Instructions: test blood sugar three times a day bumetanide 1 mg tablet 1 mg PO BID insulin lispro 100 unit/mL insulin pen 40 unit SUBCUT TID 30 Days Qty: 36 1RF rivaroxaban 20 mg tablet 20 mg PO DAILY Qty: 90 3RF Hold Instructions: Resume on 04/16/21. triamcinolone acetonide 0.1 % cream 1 applic topical BID PRN (Reason: joint inflamation) diclofenac sodium 1 % gel See Rx Instructions .ROUTE .COMPLEX PRN (Reason: Pain, Mild) Rx Instructions: 4 grams topically 4 times daily as needed gabapentin 100 mg capsule 100 mg PO DAILY ropinirole 0.25 mg tablet 0.25 mg PO QPM clindamycin phosphate 1 % gel, once daily 1 applic TOPICAL DAILY ketoconazole 2 % shampoo See Rx Instructions .ROUTE .COMPLEX Rx Instructions: 1 applic topically ;APPLY SHAMPOO TO SCALP AND FACE 2-3 TIMES WEEKLY, LETTING SIT 5 MINUTES THEN RINSE Lantus Solostar U-100 Insulin 100 unit/mL (3 mL) insulin pen 60 unit SUBCUT QPM isosorbide mononitrate 30 mg tablet extended release 24 hr 60 mg PO BID potassium chloride 20 mEq tablet,ER particles/crystals 20 meq PO DAILY famotidine 20 mg tablet 20 mg PO BID prednisone 10 mg Tablet 10 mg PO DAILY PRN (Reason: joint pain) Trulicity 3 mg/0.5 mL pen injector 3 mg SUBCUT Q7D Rx Instructions: on sunday ezetimibe 10 mg tablet 10 mg PO DAILY Discharge Orders: Discharge ED (Routine); Ordered 03/09/23 Ordered By: Mallory Dow Referrals: Samantha Vinson DO [Primary Care Provider] - Activity Restrictions/Additional Instructions: As we discussed I spoke with your cover making machine operator Dr. Power. At this time we will increase your Bumex to 2 mg in the morning and continue your normal 1 mg tablet in the evenings. He wanted you to follow-up with the cardiology office with their nurse practitioner Alanna next week for further evaluation and follow- up. He discussed performing stress test and echocardiogram as an outpatient. You need to return to the emergency department for further episodes of chest pain, severe shortness of breath or difficulty breathing, or any other concerns you may have. Hope you begin to feel better soon. Coding Level of Care Code ED Mushroom Growing Supervisor for Marcelle Bang
[2023-03-09 13:54] LABS: Basophils # 0.1 10^3/uL (0.0-0.1); Basophils % 1.2 %; Eosinophils # 0.1 10^3/uL (0.0-0.8); Eosinophils % 1.1 %; Hematocrit 29.7 % (37-53); Lymphocytes # 1.3 10^3/uL (0.8-4.8); Lymphocytes % 15.4 %; Mean Corpuscular HGB Conc 26.3 g/dL (30-55); Mean Corpuscular Hemoglobin 18.6 pg (27-33); Mean Corpuscular Volume 70.7 fl (82-101); Mean Platelet Volume 9.9 fL (7.4-10.4); Monocytes # 0.7 10^3/uL (0.2-0.9); Neutrophils # 5.94 10^3/uL (1.8-7.7); Neutrophils % 72.9 %; Nucleated Red Blood Cells % 0.2 %; Platelet Count 261 10^3/cmm (157-399); Red Cell Distribution Width 18.5 % (12.1-15.1); White Blood Count 8.14 10^3/uL (3.29-11.43)
[2023-03-09 14:14] LABS: Alanine Aminotransferase 8 U/L (0-41); Albumin Level 3.7 g/dL (3.5-5.2); Alkaline Phosphatase 44 U/L (40-130); Anion Gap 14.5 (5-19); Aspartate Amino Transferase 13 U/L (0-40); Blood Urea Nitrogen 27 mg/dL (8-23); Calcium 8.3 mg/dL (8.5-10.5); Carbon Dioxide 27 mmol/L (22-29); Chloride 102 mmol/L (98-107); Globulin 2.4 g/dL (1.3-4.6); Glomerular Filtration Rate 35.5 mL/min (90-130); Glucose 182 mg/dL (65-115); Osmolality Calculated 298 mOsm/kg (285-295); Potassium 4.5 mmol/L (3.5-5.1); Sodium 139 mmol/L (136-145); Total Bilirubin 0.2 mg/dL (0.15-1.2); Total Protein 6.1 g/dL (6.6-8.7)
[2023-03-09 14:15] LABS: Troponin(5th) Baseline 16 ng/L (0-15)
[2023-03-09] MEDS: morphine 4 mg/mL SDV 1 mL IVP (14:35)
[2023-03-09 14:41] LABS: NT Pro B Type Natriuretic Pept 1597 pg/mL (0-125)
[2023-03-09] MEDS: FUROsemide 10 mg/mL SDV 10mL 60 MG IVP (15:21)
--- NOTE | 2023-03-09 15:26 | ECG_ITS ---
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 Measurements Intervals [place] Rate: 44 P: 0 NC: 0 QRS: -54 QRSD: 114 T: 44 QT: 459 QTc: 394 Interpretive Statements SUPRAVENTRICULAR BRADYCARDIA LOW QRS VOLTAGE IN PRECORDIAL LEADS [QRS DEFLECTION < 1.0 mV IN CHEST LEADS] RIGHT BUNDLE BRANCH BLOCK [120+ ms QRS DURATION, UPRIGHT V1, 40+ ms S IN I/aVL/V4/V5/V6] LEFT ANTERIOR FASCICULAR BLOCK [QRS AXIS <= -45, QR IN I, RS IN II] ANTEROSEPTAL MYOCARDIAL INFARCTION , OF INDETERMINATE AGE [40+ ms Q WAVE IN V1-V4] Compared to ECG 03/09/2023 13:33:04 Right bundle-branch block now present Atrial fibrillation no longer present Incomplete right bundle-branch block no longer present Myocardial infarct finding still present Electronically Signed On 03-09-2023 19:44:09 CDT by Patrick Roahc M.D. [id number]
--- NOTE | 2023-03-12 08:55 | DCPLANNER ---
Message was sent to heart care for patient to get a follow up appointment with Alanna De La Torre. 03/12/23 at 0867
== END 2023-03-09 17:21 | disposition home or self-care (01) ==
PROVIDERS: Emergency Provider Physician Assistant; PCP Family Medicine
DX: I50.9 Heart failure, unspecified (principal); Z79.85 Long-term (current) use of injectable non-insulin antidiabetic drugs; Z79.4 Long term (current) use of insulin; E11.22 Type 2 diabetes mellitus with diabetic chronic kidney disease; N18.30 Chronic kidney disease, stage 3 unspecified; E11.40 Type 2 diabetes mellitus with diabetic neuropathy, unspecified; E78.5 Hyperlipidemia, unspecified
CPT/HCPCS: 36415; 71045; 80053; 83880; 84484; 85025; 93005; 96374; 96375; 99285; J1940; J2270

== ENCOUNTER → 2023-03-12 11:02 | Outpatient (BNVA) | payer MEDICARE, MEDICAID, SELFPAY | PROVIDERS: PCP Family Medicine; Visit Provider Otolaryngology | DX: Z86.39 Personal history of other endocrine, nutritional and metabolic disease (principal) | CPT/HCPCS: 99212; 99213 ==

== ENCOUNTER → 2023-03-15 08:31 | Outpatient (BNVA) | payer MEDICARE, MEDICAID, SELFPAY | PROVIDERS: PCP Family Medicine; Visit Provider Nurse Practitioner Family | DX: I50.33 Acute on chronic diastolic (congestive) heart failure (principal) | CPT/HCPCS: 99214 ==

== ENCOUNTER → 2023-03-16 12:48 | Outpatient (BNVA) | payer MEDICARE, MEDICAID, SELFPAY | PROVIDERS: PCP Family Medicine; Visit Provider Nurse Practitioner Family | DX: D64.9 Anemia, unspecified (principal) | CPT/HCPCS: 82270 ==

== ENCOUNTER 2023-03-19 07:26 | Outpatient (CLI) | payer MEDICARE, MEDICAID, SELFPAY ==
--- NOTE | 2023-03-19 08:15 | USCV_ITS ---
Mauro Solis Age: 67 Gender: M : 1955 Exam Date: 03/19/2023 07:58 Ordering Phys: Alanna De La Torre Technologist: Exam Location: [facility] [place] Indication: chest pain BP: 130 / 70 HR: 67 Rhythm: Sinus Technical Quality: Adequate MEASUREMENTS (Male / Female) Normal Values 2D ECHO LV Diastolic Diameter PLAX 4.9 cm 4.2 - 5.9 / 3.9 - 5.3 cm LV Systolic Diameter PLAX 3.1 cm IVS Diastolic Thickness 1.3 cm 0.6 - 1.0 / 0.6 - 0.9 cm IVS Systolic Thickness 1.9 cm LVPW Diastolic Thickness 1.6 cm 0.6 - 1.0 / 0.6 - 0.9 cm LVPW Systolic Thickness 1.6 cm LVOT Diameter 2.1 cm LV Ejection Fraction 2D Teich 66.8 % LV Ejection Fraction MOD 2C 55.1 % LV Ejection Fraction 2C AL 54.6 % LA Diameter 4.3 cm LA Width 4.1 cm M-MODE Aortic Annulus Diameter 4.1 cm LA Ao Ratio MM 1.1 MV E Point Septal Separation 0.8 cm DOPPLER AV Peak Velocity 153.0 cm/s LVOT Peak Velocity 74.0 cm/s AV Area Cont Eq vti 2.0 cm squared AV Area Cont Eq pk 1.6 cm squared MV Area PHT 5.0 cm squared Mitral E to A Ratio 1.4 MV E' Velocity 61.0 cm/s Mitral E to MV E' Ratio 10.5 Mitral E to LV E' Lateral Ratio 9.0 Mitral E to LV E' Septal Ratio 12.5 TR Peak Velocity 174.7 cm/s TR Peak Gradient 12.2 mmHg TV Peak E Velocity 127.0 cm/s Right Atrial Pressure 3.0 mmHg Pulmonary Artery Systolic Pressu 15.2 mmHg FINDINGS Left Ventricle Normal left ventricular size and systolic function, EF 58 %. No regional wall motion abnormalities. (Echo contrast - Optison was used to delineate the endocardium and to estimate the LV ejection fraction) but the echo contrast was a suboptimal quality Right Ventricle Possibly of normal size and ejection fraction Right Atrium Could not be visualized well Left Atrium Could not be visualized well Mitral Valve No gross abnormalities noted Aortic Valve Thickened aortic valve. Tricuspid Valve Tricuspid valve not well visualized. Pulmonic Valve Pulmonic valve not well visualized. Pericardium No significant pericardial effusion. Aorta Normal aortic annulus size. IVC Inferior vena cava not visualized. CONCLUSIONS Normal left ventricular size and systolic function, EF 58 %. No regional wall motion abnormalities. (Echo contrast - Optison was used to delineate the endocardium and to estimate the LV ejection fraction) but the echo contrast was of suboptimal quality. Thickened aortic valve. No significant pericardial effusion. Technically difficult study because of the poor ultrasonic window and artifacts. Dr Robb Banegas MD FACC (Electronically Signed) Final Date: 21 March 2023 22:51 S
[2023-03-19] MEDS: perflutren protein-a microsphr 0.22 mg/mL SDV 3 mL IV (08:35)
== END 2023-03-19 07:27 | disposition home or self-care (01) ==
LOC: RAD 07:26
PROVIDERS: PCP Family Medicine; Visit Provider Nurse Practitioner Family
DX: I50.9 Heart failure, unspecified (principal); I35.8 Other nonrheumatic aortic valve disorders; R07.9 Chest pain, unspecified; R79.89 Other specified abnormal findings of blood chemistry
CPT/HCPCS: C8929; Q9956

== ENCOUNTER 2023-04-04 08:30 | Oncology outpatient (recurring) (ONCR) | payer MEDICARE, MEDICAID, SELFPAY ==
[2023-03-21 08:03] VITALS: BP 101/69; PULSE 58; TEMP 36.3; O2SAT 97
[2023-03-21 08:06] LABS: Basophils # 0.1 10^3/uL (0.0-0.1); Basophils % 1.1 %; Eosinophils # 0.1 10^3/uL (0.0-0.8); Eosinophils % 1.1 %; Hematocrit 28.4 % (37-53); Lymphocytes # 0.9 10^3/uL (0.8-4.8); Lymphocytes % 15.1 %; Mean Corpuscular HGB Conc 26.8 g/dL (30-55); Mean Corpuscular Hemoglobin 18.4 pg (27-33); Mean Corpuscular Volume 68.8 fl (82-101); Mean Platelet Volume 9.8 fL (7.4-10.4); Monocytes # 0.6 10^3/uL (0.2-0.9); Monocytes % 9.5 %; Neutrophils # 4.53 10^3/uL (1.8-7.7); Neutrophils % 72.7 %; Nucleated Red Blood Cells % 0.5 %; Platelet Count 182 10^3/cmm (157-399); Red Blood Count 4.13 10^6/uL (3.85-5.65); Red Cell Distribution Width 18.4 % (12.1-15.1); White Blood Count 6.23 10^3/uL (3.29-11.43)
[2023-03-21 08:27] LABS: Alanine Aminotransferase 9 U/L (0-41); Albumin Level 3.8 g/dL (3.5-5.2); Alkaline Phosphatase 45 U/L (40-130); Anion Gap 12.6 (5-19); Aspartate Amino Transferase 15 U/L (0-40); Blood Urea Nitrogen 20 mg/dL (8-23); Calcium 8.4 mg/dL (8.5-10.5); Carbon Dioxide 28 mmol/L (22-29); Chloride 102 mmol/L (98-107); Ferritin 10 ng/mL (30-400); Globulin 2.5 g/dL (1.3-4.6); Glomerular Filtration Rate 60.4 mL/min (90-130); Glucose 158 mg/dL (65-115); Iron 19 ug/dL (59-158); Osmolality Calculated 294 mOsm/kg (285-295); Percent Saturation 3.6 % (20-50); Potassium 3.6 mmol/L (3.5-5.1); Sodium 139 mmol/L (136-145); Total Bilirubin 0.3 mg/dL (0.15-1.2); Total Iron Binding Capacity 516 mcg/dl; Total Protein 6.3 g/dL (6.6-8.7); Unsaturated Iron Binding 497 ug/dL (112-347)
[2023-03-26 08:16] VITALS: BP 126/77; PULSE 85; RESP 17; TEMP 36.7; O2SAT 95
[2023-03-26] MEDS: sodium chloride 0.9% 250 ML 75 ML IV (08:41)
[2023-03-26] MEDS: iron sucrose 200 MG in sodium chloride 0.9% (100 ml) 100 ML 220 MG IV (08:58)
[2023-03-26 09:43] VITALS: BP 127/79; PULSE 91; RESP 18; TEMP 36.4; O2SAT 98
[2023-03-28] MEDS: iron sucrose 200 MG in sodium chloride 0.9% (100 ml) 100 ML 220 MG IV (09:30)
[2023-03-28 10:35] VITALS: BP 123/77; PULSE 69; RESP 18; TEMP 36.2; O2SAT 95
[2023-04-02 08:54] VITALS: BP 118/65; PULSE 63; TEMP 36; O2SAT 97
[2023-04-02] MEDS: iron sucrose 200 MG in sodium chloride 0.9% (100 ml) 100 ML 220 MG IV (09:04)
[2023-04-02 09:45] VITALS: BP 122/76; PULSE 62; RESP 16; TEMP 36.2; O2SAT 98
[2023-04-04 08:24] VITALS: BP 126/84; PULSE 92; RESP 16; TEMP 36; O2SAT 99
[2023-04-04] MEDS: iron sucrose 200 MG in sodium chloride 0.9% (100 ml) 100 ML 220 MG IV (08:43)
[2023-04-04 09:32] VITALS: BP 128/80; PULSE 66; TEMP 35.9; O2SAT 97
== END 2023-04-05 23:59 | disposition home or self-care (01) ==
PROVIDERS: Internal Medicine Medical Oncology; PCP Family Medicine; Visit Provider Internal Medicine Medical Oncology
DX: D50.9 Iron deficiency anemia, unspecified (principal)
CPT/HCPCS: 36415; 80053; 82728; 83540; 83550; 85025; 96365; 99214; J1756; J7050

== ENCOUNTER 2023-04-11 09:06 | Outpatient (CLI) | payer MEDICARE, MEDICAID, SELFPAY ==
[2023-04-11 09:56] LABS: Basophils # 0.1 10^3/uL (0.0-0.1); Eosinophils # 0.1 10^3/uL (0.0-0.8); Eosinophils % 0.8 %; Hematocrit 36.7 % (37-53); Lymphocytes % 16.2 %; Mean Corpuscular Hemoglobin 20.4 pg (27-33); Mean Corpuscular Volume 75.7 fl (82-101); Mean Platelet Volume 9.8 fL (7.4-10.4); Monocytes # 0.5 10^3/uL (0.2-0.9); Monocytes % 8.9 %; Neutrophils # 4.44 10^3/uL (1.8-7.7); Neutrophils % 72.8 %; Nucleated Red Blood Cells % 0 %; Platelet Count 208 10^3/cmm (157-399); Red Blood Count 4.85 10^6/uL (3.85-5.65); Red Cell Distribution Width 28.4 % (12.1-15.1)
[2023-04-11 10:20] LABS: Alanine Aminotransferase 10 U/L (0-41); Albumin Level 4.1 g/dL (3.5-5.2); Alkaline Phosphatase 51 U/L (40-130); Aspartate Amino Transferase 17 U/L (0-40); Globulin 2.6 g/dL (1.3-4.6); Total Bilirubin 0.3 mg/dL (0.15-1.2); Total Protein 6.7 g/dL (6.6-8.7)
[2023-04-11 10:34] LABS: Creatinine Urine, Random 113 mg/dL (39-259); Microalbum Creatinine Ratio Ur 9 mg/dL (0-20); Microalbumin Random Urine 1 ug/dL (0-20)
== END 2023-04-11 09:07 | disposition home or self-care (01) ==
LOC: RAD 09:08 → LAB 09:11
PROVIDERS: Internal Medicine; PCP Family Medicine; Visit Provider Internal Medicine Rheumatology
DX: I73.9 Peripheral vascular disease, unspecified (principal); L60.3 Nail dystrophy; M06.00 Rheumatoid arthritis without rheumatoid factor, unspecified site; M10.9 Gout, unspecified; E78.5 Hyperlipidemia, unspecified; E11.8 Type 2 diabetes mellitus with unspecified complications; E11.42 Type 2 diabetes mellitus with diabetic polyneuropathy; M20.21 Hallux rigidus, right foot; M20.22 Hallux rigidus, left foot; M20.41 Other hammer toe(s) (acquired), right foot; M20.42 Other hammer toe(s) (acquired), left foot; M21.41 Flat foot [pes planus] (acquired), right foot; M21.42 Flat foot [pes planus] (acquired), left foot; Z79.4 Long term (current) use of insulin
CPT/HCPCS: 11721; 36415; 80076; 82044; 85025

== ENCOUNTER 2023-05-01 12:30 | Oncology outpatient (recurring) (ONCR) | payer MEDICARE, MEDICAID, SELFPAY ==
[2023-04-06 08:50] VITALS: BP 110/60; PULSE 80; RESP 17; TEMP 36.6; O2SAT 96
[2023-04-06] MEDS: iron sucrose 200 MG in sodium chloride 0.9% (100 ml) 100 ML 220 MG IV (09:01)
[2023-04-06 09:50] VITALS: BP 114/69; PULSE 82; PULSE 87; RESP 18; TEMP 36.4; O2SAT 97
[2023-05-01 10:05] VITALS: BP 125/84; PULSE 78; RESP 18; TEMP 36.5; O2SAT 95
[2023-05-01 10:27] LABS: Basophils # 0.1 10^3/uL (0.0-0.1); Basophils % 1.2 %; Eosinophils # 0.1 10^3/uL (0.0-0.8); Eosinophils % 1.5 %; Hematocrit 37.1 % (37-53); Lymphocytes # 1.3 10^3/uL (0.8-4.8); Lymphocytes % 19.9 %; Mean Corpuscular HGB Conc 29.1 g/dL (30-55); Mean Corpuscular Hemoglobin 21.7 pg (27-33); Mean Corpuscular Volume 74.5 fl (82-101); Mean Platelet Volume 9.6 fL (7.4-10.4); Monocytes # 0.6 10^3/uL (0.2-0.9); Monocytes % 9.4 %; Neutrophils # 4.37 10^3/uL (1.8-7.7); Neutrophils % 67.5 %; Nucleated Red Blood Cells % 0 %; Platelet Count 228 10^3/cmm (157-399); Red Blood Count 4.98 10^6/uL (3.85-5.65); White Blood Count 6.48 10^3/uL (3.29-11.43)
[2023-05-01 10:45] LABS: Alanine Aminotransferase 14 U/L (0-41); Albumin Level 4.1 g/dL (3.5-5.2); Alkaline Phosphatase 55 U/L (40-130); Aspartate Amino Transferase 20 U/L (0-40); Blood Urea Nitrogen 20 mg/dL (8-23); Calcium 9.1 mg/dL (8.5-10.5); Carbon Dioxide 29 mmol/L (22-29); Chloride 102 mmol/L (98-107); Ferritin 42 ng/mL (30-400); Globulin 2.8 g/dL (1.3-4.6); Glomerular Filtration Rate 50.5 mL/min (90-130); Glucose 125 mg/dL (65-115); Iron 36 ug/dL (59-158); Osmolality Calculated 296 mOsm/kg (285-295); Percent Saturation 7.5 % (20-50); Sodium 141 mmol/L (136-145); Total Bilirubin 0.2 mg/dL (0.15-1.2); Total Iron Binding Capacity 474 mcg/dl; Total Protein 6.9 g/dL (6.6-8.7); Unsaturated Iron Binding 438 ug/dL (112-347)
[2023-05-01 10:58] LABS: Slide Review Slide Review Perform
[2023-05-01 12:00] LABS: Calcium 9.3 mg/dL (8.5-10.5)
[2023-05-01 13:21] LABS: Parathyroid Hormone 40.7 pg/mL (15-65)
== END 2023-05-06 23:59 | disposition home or self-care (01) ==
PROVIDERS: Internal Medicine; PCP Family Medicine; Visit Provider Internal Medicine Medical Oncology
DX: Z53.9 Procedure and treatment not carried out, unspecified reason (principal); E11.9 Type 2 diabetes mellitus without complications; E78.2 Mixed hyperlipidemia; E04.1 Nontoxic single thyroid nodule; E83.51 Hypocalcemia; E78.5 Hyperlipidemia, unspecified; Z79.4 Long term (current) use of insulin; Z79.85 Long-term (current) use of injectable non-insulin antidiabetic drugs
CPT/HCPCS: 36415; 80053; 82310; 82728; 83540; 83550; 83970; 85025; 96365; 99214; J1756

== ENCOUNTER → 2023-05-02 10:22 | Outpatient (BNVA) | payer MEDICARE, MEDICAID, SELFPAY | PROVIDERS: PCP Family Medicine; Visit Provider Nurse Practitioner Family | DX: M79.645 Pain in left finger(s) (principal) | CPT/HCPCS: 73130 ==

== ENCOUNTER → 2023-05-14 14:33 | Outpatient (BNVA) | payer MEDICARE, MEDICAID, SELFPAY | PROVIDERS: PCP Family Medicine; Visit Provider Dermatology | DX: L57.0 Actinic keratosis (principal); L91.8 Other hypertrophic disorders of the skin; L81.4 Other melanin hyperpigmentation; L82.1 Other seborrheic keratosis; D22.5 Melanocytic nevi of trunk | CPT/HCPCS: 17000; 99213 ==

== ENCOUNTER 2023-05-15 07:45 | Oncology outpatient (recurring) (ONCR) | payer MEDICARE, MEDICAID, SELFPAY ==
[2023-05-15 07:54] VITALS: BP 150/87; PULSE 88; TEMP 36.3; O2SAT 96
[2023-05-15] MEDS: diphenhydrAMINE 50 mg/mL SDV 1mL 25 MG IVP (08:13)
[2023-05-15] MEDS: sodium chloride 0.9% 500 ML 75 ML IV (08:13)
[2023-05-15] MEDS: iron dextran 25 MG in SYRINGE 1 EACH 30 MG IVP (08:32)
[2023-05-15] MEDS: iron dextran 1,500 MG in sodium chloride 0.9% 1,000 ML 250.75 MG IV (09:57)
[2023-05-15 14:30] VITALS: BP 145/81; PULSE 82; RESP 18; TEMP 36.3; O2SAT 98
== END 2023-06-06 23:59 | disposition home or self-care (01) ==
PROVIDERS: PCP Family Medicine; Visit Provider Internal Medicine Medical Oncology
DX: D50.9 Iron deficiency anemia, unspecified (principal); Z53.9 Procedure and treatment not carried out, unspecified reason
CPT/HCPCS: 96365; 96366; 96376; J1200; J1750; J7030; J7040

== ENCOUNTER → 2023-05-30 08:53 | Outpatient (BNVA) | payer MEDICARE, MEDICAID, SELFPAY | PROVIDERS: PCP Family Medicine; Visit Provider Podiatrist Foot & Ankle Surgery | DX: I73.9 Peripheral vascular disease, unspecified; L60.3 Nail dystrophy; E11.42 Type 2 diabetes mellitus with diabetic polyneuropathy; M20.21 Hallux rigidus, right foot; M20.22 Hallux rigidus, left foot; M20.41 Other hammer toe(s) (acquired), right foot; M20.42 Other hammer toe(s) (acquired), left foot; M21.41 Flat foot [pes planus] (acquired), right foot; M21.42 Flat foot [pes planus] (acquired), left foot; Z79.4 Long term (current) use of insulin | CPT/HCPCS: 11721; 73630 ==

== ENCOUNTER 2023-06-11 11:42 | Oncology outpatient (recurring) (ONCR) | payer MEDICARE, MEDICAID, SELFPAY ==
[2023-06-11 12:36] LABS: Basophils # 0.1 10^3/uL (0.0-0.1); Basophils % 1.1 %; Eosinophils # 0.1 10^3/uL (0.0-0.8); Eosinophils % 1.1 %; Hematocrit 43.2 % (37-53); Lymphocytes # 1.3 10^3/uL (0.8-4.8); Lymphocytes % 16.5 %; Mean Corpuscular HGB Conc 30.3 g/dL (30-55); Mean Corpuscular Hemoglobin 24.6 pg (27-33); Mean Corpuscular Volume 81.2 fl (82-101); Mean Platelet Volume 9.8 fL (7.4-10.4); Monocytes # 0.8 10^3/uL (0.2-0.9); Monocytes % 9.9 %; Neutrophils # 5.39 10^3/uL (1.8-7.7); Neutrophils % 70.9 %; Nucleated Red Blood Cells % 0 %; Platelet Count 205 10^3/cmm (157-399); Red Blood Count 5.32 10^6/uL (3.85-5.65); Red Cell Distribution Width 22.5 % (12.1-15.1); White Blood Count 7.59 10^3/uL (3.29-11.43)
[2023-06-11 12:55] LABS: Alanine Aminotransferase 20 U/L (0-41); Albumin Level 3.9 g/dL (3.5-5.2); Alkaline Phosphatase 64 U/L (40-130); Anion Gap 13.3 (5-19); Aspartate Amino Transferase 28 U/L (0-40); Blood Urea Nitrogen 18 mg/dL (8-23); Calcium 8.8 mg/dL (8.5-10.5); Carbon Dioxide 30 mmol/L (22-29); Chloride 101 mmol/L (98-107); Ferritin 540 ng/mL (30-400); Glomerular Filtration Rate 50.5 mL/min (90-130); Glucose 192 mg/dL (65-115); Iron 56 ug/dL (59-158); Osmolality Calculated 297 mOsm/kg (285-295); Percent Saturation 15.7 % (20-50); Potassium 4.3 mmol/L (3.5-5.1); Sodium 140 mmol/L (136-145); Total Bilirubin 0.2 mg/dL (0.15-1.2); Total Iron Binding Capacity 356 mcg/dl; Total Protein 6.9 g/dL (6.6-8.7); Unsaturated Iron Binding 300 ug/dL (112-347)
== END 2023-07-05 23:59 | disposition home or self-care (01) ==
PROVIDERS: Nurse Practitioner Family; PCP Family Medicine; Visit Provider Internal Medicine Medical Oncology
DX: D50.9 Iron deficiency anemia, unspecified (principal); E11.9 Type 2 diabetes mellitus without complications; E78.5 Hyperlipidemia, unspecified; Z79.4 Long term (current) use of insulin; Z79.85 Long-term (current) use of injectable non-insulin antidiabetic drugs; I48.20 Chronic atrial fibrillation, unspecified; Z79.01 Long term (current) use of anticoagulants
CPT/HCPCS: 36415; 80053; 82728; 83540; 83550; 85025; 99214

== ENCOUNTER → 2023-07-24 07:54 | Outpatient (BNVA) | payer MEDICARE, SELFPAY | PROVIDERS: PCP Family Medicine; Visit Provider Podiatrist Foot & Ankle Surgery | DX: E11.42 Type 2 diabetes mellitus with diabetic polyneuropathy (principal); I73.9 Peripheral vascular disease, unspecified; M20.41 Other hammer toe(s) (acquired), right foot; M20.42 Other hammer toe(s) (acquired), left foot; M21.41 Flat foot [pes planus] (acquired), right foot; M21.42 Flat foot [pes planus] (acquired), left foot | CPT/HCPCS: 99213 ==

== ENCOUNTER 2023-09-05 11:36 | Oncology outpatient (recurring) (ONCR) | payer MEDICARE, SELFPAY ==
[2023-09-05 12:15] LABS: Basophils # 0.1 10^3/uL (0.0-0.1); Eosinophils # 0.1 10^3/uL (0.0-0.8); Hematocrit 44.2 % (37-53); Lymphocytes # 1.6 10^3/uL (0.8-4.8); Mean Corpuscular HGB Conc 32.4 g/dL (30-55); Mean Corpuscular Hemoglobin 27.5 pg (27-33); Mean Platelet Volume 9.8 fL (7.4-10.4); Monocytes # 0.7 10^3/uL (0.2-0.9); Monocytes % 7.3 %; Neutrophils # 6.91 10^3/uL (1.8-7.7); Neutrophils % 73.2 %; Nucleated Red Blood Cells % 0 %; Platelet Count 203 10^3/cmm (157-399); Red Cell Distribution Width 15.6 % (12.1-15.1); White Blood Count 9.43 10^3/uL (3.29-11.43)
[2023-09-05 12:37] LABS: Estmated Average Glucose 200; Hemoglobin A1C 8.6 % (4.0-6.0)
[2023-09-05 12:38] LABS: Alanine Aminotransferase 17 U/L (0-41); Alkaline Phosphatase 64 U/L (40-130); Anion Gap 15.3 (5-19); Aspartate Amino Transferase 24 U/L (0-40); Blood Urea Nitrogen 20 mg/dL (8-23); Calcium 8.7 mg/dL (8.5-10.5); Carbon Dioxide 27 mmol/L (22-29); Chloride 100 mmol/L (98-107); Ferritin 350 ng/mL (30-400); Globulin 2.6 g/dL (1.3-4.6); Glomerular Filtration Rate 74.3 mL/min (90-130); Glucose 188 mg/dL (65-115); Iron 103 ug/dL (59-158); Osmolality Calculated 294 mOsm/kg (285-295); Percent Saturation 27.3 % (20-50); Potassium 4.3 mmol/L (3.5-5.1); Sodium 138 mmol/L (136-145); Total Bilirubin 0.4 mg/dL (0.15-1.2); Total Iron Binding Capacity 376 mcg/dl; Total Protein 6.6 g/dL (6.6-8.7); Unsaturated Iron Binding 273 ug/dL (112-347)
== END 2023-10-05 23:59 | disposition home or self-care (01) ==
PROVIDERS: Nurse Practitioner Family; PCP Family Medicine; Visit Provider Internal Medicine Medical Oncology
DX: E11.9 Type 2 diabetes mellitus without complications; E78.5 Hyperlipidemia, unspecified; Z79.4 Long term (current) use of insulin; Z79.85 Long-term (current) use of injectable non-insulin antidiabetic drugs; I48.20 Chronic atrial fibrillation, unspecified; Z79.01 Long term (current) use of anticoagulants; D50.8 Other iron deficiency anemias
CPT/HCPCS: 36415; 80053; 82728; 83036; 83540; 83550; 85025; 99214

== ENCOUNTER → 2023-10-02 08:12 | Outpatient (BNVA) | payer MEDICARE, SELFPAY | PROVIDERS: PCP Family Medicine; Visit Provider Podiatrist Foot & Ankle Surgery | DX: E11.42 Type 2 diabetes mellitus with diabetic polyneuropathy (principal); I73.9 Peripheral vascular disease, unspecified; M20.41 Other hammer toe(s) (acquired), right foot; M20.42 Other hammer toe(s) (acquired), left foot; M21.41 Flat foot [pes planus] (acquired), right foot; M21.42 Flat foot [pes planus] (acquired), left foot; L60.3 Nail dystrophy; Z79.4 Long term (current) use of insulin | CPT/HCPCS: 11721 ==

== ENCOUNTER → 2023-10-18 13:28 | Outpatient (BNVA) | payer MEDICARE, SELFPAY | PROVIDERS: PCP Family Medicine; Visit Provider Internal Medicine Rheumatology | DX: M06.00 Rheumatoid arthritis without rheumatoid factor, unspecified site (principal); M1A.3790 Chronic gout due to renal impairment, unspecified ankle and foot, without tophus (tophi); M75.52 Bursitis of left shoulder; N18.30 Chronic kidney disease, stage 3 unspecified; E11.22 Type 2 diabetes mellitus with diabetic chronic kidney disease; I48.91 Unspecified atrial fibrillation; D64.9 Anemia, unspecified; E66.9 Obesity, unspecified; Z68.43 Body mass index [BMI] 50.0-59.9, adult; Z79.899 Other long term (current) drug therapy | CPT/HCPCS: 99214 ==

== ENCOUNTER 2023-12-10 10:29 | Oncology outpatient (recurring) (ONCR) | payer MEDICARE, SELFPAY ==
[2023-12-10 11:31] LABS: Charge for UA Resulting for Rev
[2023-12-10 11:34] LABS: Basophils # 0.1 10^3/uL (0.0-0.1); Basophils % 0.8 %; Eosinophils # 0.1 10^3/uL (0.0-0.8); Lymphocytes # 1.4 10^3/uL (0.8-4.8); Lymphocytes % 17.9 %; Mean Corpuscular HGB Conc 31.8 g/dL (30-55); Mean Corpuscular Hemoglobin 27.6 pg (27-33); Mean Corpuscular Volume 86.9 fl (82-101); Mean Platelet Volume 9.9 fL (7.4-10.4); Monocytes # 0.8 10^3/uL (0.2-0.9); Monocytes % 9.8 %; Neutrophils # 5.58 10^3/uL (1.8-7.7); Neutrophils % 69.9 %; Nucleated Red Blood Cells % 0 %; Platelet Count 200 10^3/cmm (157-399); Red Blood Count 5.18 10^6/uL (3.85-5.65); Red Cell Distribution Width 13.3 % (12.1-15.1); White Blood Count 7.98 10^3/uL (3.29-11.43)
[2023-12-10 11:41] LABS: Bilirubin Urine Negative (Negative); Blood Urine Negative (Negative); Glucose Urine UA Negative (Normal); Ketones Urine Negative (Negative); Leukocyte Esterase Urine Negative (Negative); Nitrate Urine Negative (Negative); Protein Urine Negative (Negative); Specific Gravity, Urine 1.018 (1.005-1.030); Urine Appearance Clear (CLEAR); Urine Color Yellow (Yellow); Urobilinogen Urine 0.2 mg/dL (Negative); pH Urine 5.5 (5-7)
[2023-12-10 11:48] LABS: Estmated Average Glucose 186; Hemoglobin A1C 8.1 % (4.0-6.0)
[2023-12-10 11:58] LABS: Alanine Aminotransferase 21 U/L (0-41); Albumin Level 4.1 g/dL (3.5-5.2); Alkaline Phosphatase 69 U/L (40-130); Anion Gap 15.8 (5-19); Aspartate Amino Transferase 27 U/L (0-40); Blood Urea Nitrogen 23 mg/dL (8-23); Calcium 8.8 mg/dL (8.5-10.5); Carbon Dioxide 28 mmol/L (22-29); Chloride 97 mmol/L (98-107); Globulin 2.9 g/dL (1.3-4.6); Glomerular Filtration Rate 60.2 mL/min (90-130); Glucose 133 mg/dL (65-115); Osmolality Calculated 290 mOsm/kg (285-295); Potassium 3.8 mmol/L (3.5-5.1); Sodium 137 mmol/L (136-145); Total Bilirubin 0.2 mg/dL (0.15-1.2)
[2023-12-10 12:00] LABS: Creatinine Urine, Random 114 mg/dL (39-259); Microalbum Creatinine Ratio Ur 9 mg/dL (0-20); Microalbumin Random Urine 1 ug/dL (0-20)
[2023-12-10 12:03] LABS: Calcium 8.9 mg/dL (8.5-10.5)
[2023-12-10 13:01] LABS: Ferritin 180 ng/mL (30-400); Iron 60 ug/dL (59-158); Percent Saturation 15.3 % (20-50); Total Iron Binding Capacity 391 mcg/dl; Unsaturated Iron Binding 331 ug/dL (112-347)
[2023-12-10 13:16] LABS: 25 Hydroxy Vitamin D 26 ng/mL (30-100)
== END 2024-01-05 23:59 | disposition home or self-care (01) ==
PROVIDERS: Nurse Practitioner Family; Registered Nurse; PCP Family Medicine; Visit Provider Internal Medicine Medical Oncology
DX: D50.8 Other iron deficiency anemias (principal); E11.22 Type 2 diabetes mellitus with diabetic chronic kidney disease; N18.31 Chronic kidney disease, stage 3a; Z79.85 Long-term (current) use of injectable non-insulin antidiabetic drugs; Z79.4 Long term (current) use of insulin
CPT/HCPCS: 36591; 80053; 80069; 81003; 81015; 82044; 82306; 82310; 82728; 83036; 83540; 83550; 83970; 85025; 99214

== ENCOUNTER → 2023-12-21 08:23 | Outpatient (BNVA) | payer MEDICARE, SELFPAY | PROVIDERS: PCP Family Medicine; Visit Provider Nurse Practitioner Family | DX: L57.0 Actinic keratosis (principal); L21.8 Other seborrheic dermatitis; Z85.828 Personal history of other malignant neoplasm of skin | CPT/HCPCS: 17000; 99213 ==

== ENCOUNTER → 2024-01-01 08:13 | Outpatient (BNVA) | payer MEDICARE, SELFPAY | PROVIDERS: PCP Family Medicine; Visit Provider Podiatrist Foot & Ankle Surgery | DX: E11.42 Type 2 diabetes mellitus with diabetic polyneuropathy (principal); I73.9 Peripheral vascular disease, unspecified; L60.3 Nail dystrophy; Z79.4 Long term (current) use of insulin | CPT/HCPCS: 11721 ==

== ENCOUNTER → 2024-01-15 10:09 | Outpatient (BNVA) | payer MEDICARE, SELFPAY | PROVIDERS: PCP Family Medicine; Visit Provider Internal Medicine Rheumatology | DX: M06.00 Rheumatoid arthritis without rheumatoid factor, unspecified site (principal) | CPT/HCPCS: 80076; 82565; 85025; 86140 ==

== ENCOUNTER 2024-01-28 11:13 | Oncology outpatient (recurring) (ONCR) | payer MEDICARE, SELFPAY ==
[2024-01-28 12:36] LABS: Ferritin 175 ng/mL (30-400); Iron 61 ug/dL (59-158)
[2024-01-28 13:33] LABS: Percent Saturation 15.1 % (20-50); Total Iron Binding Capacity 402 mcg/dl; Unsaturated Iron Binding 341 ug/dL (112-347)
== END 2024-02-04 23:59 | disposition home or self-care (01) ==
LOC: ONCMED 11:13
PROVIDERS: Nurse Practitioner Family; PCP Family Medicine; Visit Provider Internal Medicine Medical Oncology
DX: D50.8 Other iron deficiency anemias (principal)
CPT/HCPCS: 36415; 82728; 83540; 83550; 85025

== ENCOUNTER 2024-02-06 08:29 | Oncology outpatient (recurring) (ONCR) | payer MEDICARE, SELFPAY ==
[2024-02-06 08:59] LABS: Basophils # 0.1 10^3/uL (0.0-0.1); Basophils % 0.8 %; Eosinophils # 0.1 10^3/uL (0.0-0.8); Eosinophils % 1.4 %; Hematocrit 43.3 % (37-53); Lymphocytes # 1.4 10^3/uL (0.8-4.8); Lymphocytes % 16.8 %; Mean Corpuscular HGB Conc 32.1 g/dL (30-55); Mean Corpuscular Hemoglobin 27.7 pg (27-33); Mean Corpuscular Volume 86.4 fl (82-101); Mean Platelet Volume 9.5 fL (7.4-10.4); Monocytes # 0.5 10^3/uL (0.2-0.9); Monocytes % 6.4 %; Neutrophils # 6.16 10^3/uL (1.8-7.7); Nucleated Red Blood Cells % 0 %; Platelet Count 177 10^3/cmm (157-399); Red Blood Count 5.01 10^6/uL (3.85-5.65); White Blood Count 8.33 10^3/uL (3.29-11.43)
[2024-02-06 11:31] LABS: Blood Urea Nitrogen 17 mg/dL (8-23); Calcium 8.6 mg/dL (8.5-10.5); Carbon Dioxide 30 mmol/L (22-29); Chloride 101 mmol/L (98-107); Glomerular Filtration Rate 60.2 mL/min (90-130); Glucose 107 mg/dL (65-115); NT Pro B Type Natriuretic Pept 707 pg/mL (0-125); Osmolality Calculated 292 mOsm/kg (285-295); Sodium 140 mmol/L (136-145)
== END 2024-03-06 23:59 | disposition home or self-care (01) ==
PROVIDERS: Internal Medicine; Nurse Practitioner Family; PCP Family Medicine; Visit Provider Internal Medicine Hematology & Oncology
DX: D50.8 Other iron deficiency anemias (principal); E11.22 Type 2 diabetes mellitus with diabetic chronic kidney disease; N18.31 Chronic kidney disease, stage 3a; Z79.85 Long-term (current) use of injectable non-insulin antidiabetic drugs; Z79.4 Long term (current) use of insulin
CPT/HCPCS: 36415; 80048; 83880; 85025; 99213

== ENCOUNTER → 2024-02-12 12:59 | Outpatient (BNVA) | payer MEDICARE, SELFPAY | PROVIDERS: PCP Family Medicine; Visit Provider Nurse Practitioner Family | DX: L57.0 Actinic keratosis (principal); L21.8 Other seborrheic dermatitis; L81.4 Other melanin hyperpigmentation; L82.1 Other seborrheic keratosis; D18.01 Hemangioma of skin and subcutaneous tissue; I87.2 Venous insufficiency (chronic) (peripheral); I78.8 Other diseases of capillaries; L72.0 Epidermal cyst; Z85.828 Personal history of other malignant neoplasm of skin | CPT/HCPCS: 17000; 99214 ==

== ENCOUNTER 2024-03-12 11:03 | Oncology outpatient (recurring) (ONCR) | payer MEDICARE, SELFPAY ==
[2024-03-12 11:38] LABS: Basophils # 0.1 10^3/uL (0.0-0.1); Basophils % 0.9 %; Eosinophils # 0.1 10^3/uL (0.0-0.8); Eosinophils % 0.9 %; Hematocrit 45.1 % (37-53); Lymphocytes # 1.6 10^3/uL (0.8-4.8); Lymphocytes % 18.3 %; Mean Corpuscular HGB Conc 31.7 g/dL (30-55); Mean Corpuscular Hemoglobin 27.2 pg (27-33); Mean Corpuscular Volume 85.7 fl (82-101); Mean Platelet Volume 9.8 fL (7.4-10.4); Monocytes # 0.7 10^3/uL (0.2-0.9); Monocytes % 8.1 %; Neutrophils # 6.11 10^3/uL (1.8-7.7); Neutrophils % 71.2 %; Nucleated Red Blood Cells % 0 %; Platelet Count 210 10^3/cmm (157-399); Red Blood Count 5.26 10^6/uL (3.85-5.65); Red Cell Distribution Width 14.1 % (12.1-15.1); White Blood Count 8.59 10^3/uL (3.29-11.43)
[2024-03-12 12:08] LABS: Alanine Aminotransferase 17 U/L (0-41); Albumin Level 4.2 g/dL (3.5-5.2); Alkaline Phosphatase 66 U/L (40-130); Aspartate Amino Transferase 20 U/L (0-40); Blood Urea Nitrogen 21 mg/dL (8-23); Calcium 9.1 mg/dL (8.5-10.5); Carbon Dioxide 33 mmol/L (22-29); Chloride 98 mmol/L (98-107); Creatinine Clr Calc Pharmacy 95.1647; Ferritin 178 ng/mL (30-400); Globulin 2.1 g/dL (1.3-4.6); Glomerular Filtration Rate 60.2 mL/min (90-130); Glucose 129 mg/dL (65-115); Iron 82 ug/dL (59-158); NT Pro B Type Natriuretic Pept 719 pg/mL (0-125); Osmolality Calculated 295 mOsm/kg (285-295); Percent Saturation 19.7 % (20-50); Sodium 140 mmol/L (136-145); Total Bilirubin 0.3 mg/dL (0.15-1.2); Total Iron Binding Capacity 416 mcg/dl; Total Protein 6.3 g/dL (6.6-8.7); Unsaturated Iron Binding 334 ug/dL (112-347)
== END 2024-04-05 23:59 | disposition home or self-care (01) ==
PROVIDERS: Internal Medicine; Nurse Practitioner Family; PCP Family Medicine; Visit Provider Internal Medicine Hematology & Oncology
DX: D50.8 Other iron deficiency anemias (principal); E11.22 Type 2 diabetes mellitus with diabetic chronic kidney disease; N18.31 Chronic kidney disease, stage 3a; Z79.85 Long-term (current) use of injectable non-insulin antidiabetic drugs; Z79.4 Long term (current) use of insulin; I48.20 Chronic atrial fibrillation, unspecified; I50.30 Unspecified diastolic (congestive) heart failure
CPT/HCPCS: 36415; 80053; 82728; 83540; 83550; 83880; 85025; 99213

== ENCOUNTER → 2024-03-17 08:39 | Outpatient (BNVA) | payer MEDICARE, SELFPAY | PROVIDERS: PCP Family Medicine; Visit Provider Podiatrist Foot & Ankle Surgery | DX: E11.8 Type 2 diabetes mellitus with unspecified complications (principal); E11.42 Type 2 diabetes mellitus with diabetic polyneuropathy; I73.9 Peripheral vascular disease, unspecified; L60.3 Nail dystrophy; Z79.4 Long term (current) use of insulin | CPT/HCPCS: 11721 ==

== ENCOUNTER 2024-04-11 12:36 | Outpatient (CLI) | payer MEDICARE, SELFPAY ==
[2024-04-11 14:10] LABS: Basophils # 0.1 10^3/uL (0.0-0.1); Basophils % 0.9 %; Eosinophils # 0.1 10^3/uL (0.0-0.8); Eosinophils % 1.5 %; Hematocrit 43.9 % (37-53); Lymphocytes # 1.5 10^3/uL (0.8-4.8); Lymphocytes % 18.3 %; Mean Corpuscular HGB Conc 31.7 g/dL (30-55); Mean Corpuscular Hemoglobin 27.3 pg (27-33); Mean Corpuscular Volume 86.2 fl (82-101); Mean Platelet Volume 9.9 fL (7.4-10.4); Monocytes # 0.7 10^3/uL (0.2-0.9); Monocytes % 8.4 %; Neutrophils # 5.59 10^3/uL (1.8-7.7); Neutrophils % 70.5 %; Nucleated Red Blood Cells % 0 %; Platelet Count 201 10^3/cmm (157-399); Red Blood Count 5.09 10^6/uL (3.85-5.65); Red Cell Distribution Width 13.6 % (12.1-15.1); White Blood Count 7.93 10^3/uL (3.29-11.43)
[2024-04-11 14:31] LABS: Alanine Aminotransferase 17 U/L (0-41); Alkaline Phosphatase 69 U/L (40-130); Aspartate Amino Transferase 18 U/L (0-40); C Reactive Protein 31.8 mg/L (0.0-4.9); Glomerular Filtration Rate 60.2 mL/min (90-130); Total Bilirubin 0.3 mg/dL (0.15-1.2)
== END 2024-04-11 12:37 | disposition home or self-care (01) ==
LOC: LAB 12:37
PROVIDERS: PCP Family Medicine; Visit Provider Internal Medicine Rheumatology
DX: M06.00 Rheumatoid arthritis without rheumatoid factor, unspecified site (principal)
CPT/HCPCS: 36415; 80076; 82565; 85025; 86140

== ENCOUNTER 2024-04-17 10:06 | Outpatient (CLI) | payer MEDICARE, SELFPAY ==
--- NOTE | 2024-04-17 10:21 | XR_ITS ---
WS: [id number] Exam: XR cervical spine 4-5V [id number] Date/Time of Exam: 04/17/2024 10:22 AM Reason For Exam: NECK PAIN There is anterior fusion of the C-spine at the C4-5 level with plate and screw fixation and disc spac er. The fusion is in excellent alignment. No flexion or extension instability seen. Facet DJD at all levels. Mild spondylosis. Normal paraspinal soft tissues. The odontoid is intact. XR/XR cervical spine 4-5V [id number] IMPRESSION: 1. Stable anterior C4-5 fusion. Mild degenerative changes. No instability.
== END 2024-04-17 10:07 | disposition home or self-care (01) ==
PROVIDERS: PCP Family Medicine; Visit Provider Family Medicine
DX: M50.20 Other cervical disc displacement, unspecified cervical region (principal); M43.22 Fusion of spine, cervical region
CPT/HCPCS: 72050

== ENCOUNTER → 2024-05-26 10:06 | Outpatient (BNVA) | payer MEDICARE, SELFPAY | PROVIDERS: PCP Family Medicine; Visit Provider Internal Medicine Rheumatology | DX: M06.00 Rheumatoid arthritis without rheumatoid factor, unspecified site (principal); M1A.3790 Chronic gout due to renal impairment, unspecified ankle and foot, without tophus (tophi); M75.52 Bursitis of left shoulder; Z79.899 Other long term (current) drug therapy | CPT/HCPCS: 99214 ==

== ENCOUNTER 2024-06-11 10:41 | Oncology outpatient (recurring) (ONCR) | payer MEDICARE, SELFPAY ==
[2024-06-11 11:09] LABS: Basophils # 0.1 10^3/uL (0.0-0.1); Basophils % 1.2 %; Eosinophils # 0.1 10^3/uL (0.0-0.8); Eosinophils % 1.2 %; Hematocrit 44.6 % (37-53); Lymphocytes # 1.3 10^3/uL (0.8-4.8); Lymphocytes % 19.2 %; Mean Corpuscular HGB Conc 31.6 g/dL (30-55); Mean Corpuscular Hemoglobin 27.3 pg (27-33); Mean Corpuscular Volume 86.3 fl (82-101); Mean Platelet Volume 9.7 fL (7.4-10.4); Monocytes # 0.6 10^3/uL (0.2-0.9); Monocytes % 8.7 %; Neutrophils # 4.62 10^3/uL (1.8-7.7); Neutrophils % 69.3 %; Nucleated Red Blood Cells % 0 %; Platelet Count 171 10^3/cmm (157-399); Red Blood Count 5.17 10^6/uL (3.85-5.65); Red Cell Distribution Width 14.1 % (12.1-15.1); White Blood Count 6.67 10^3/uL (3.29-11.43)
[2024-06-11 11:25] LABS: Alanine Aminotransferase 17 U/L (0-41); Alkaline Phosphatase 59 U/L (40-130); Anion Gap 11.9 (5-19); Aspartate Amino Transferase 20 U/L (0-40); Blood Urea Nitrogen 19 mg/dL (8-23); Calcium 9.3 mg/dL (8.5-10.5); Carbon Dioxide 31 mmol/L (22-29); Chloride 99 mmol/L (98-107); Ferritin 158 ng/mL (30-400); Globulin 2.8 g/dL (1.3-4.6); Glomerular Filtration Rate 60.2 mL/min (90-130); Glucose 124 mg/dL (65-115); Iron 67 ug/dL (59-158); Osmolality Calculated 290 mOsm/kg (285-295); Percent Saturation 16.8 % (20-50); Potassium 3.9 mmol/L (3.5-5.1); Sodium 138 mmol/L (136-145); Total Bilirubin 0.3 mg/dL (0.15-1.2); Total Iron Binding Capacity 397 mcg/dl; Total Protein 6.8 g/dL (6.6-8.7); Unsaturated Iron Binding 330 ug/dL (112-347)
== END 2024-07-04 23:59 | disposition home or self-care (01) ==
PROVIDERS: Nurse Practitioner Family; PCP Family Medicine; Visit Provider Internal Medicine
DX: D50.8 Other iron deficiency anemias (principal); K43.9 Ventral hernia without obstruction or gangrene
CPT/HCPCS: 36415; 80053; 82728; 83540; 83550; 85025; 99213

== ENCOUNTER → 2024-06-16 08:39 | Outpatient (BNVA) | payer MEDICARE, SELFPAY | PROVIDERS: PCP Family Medicine; Visit Provider Podiatrist Foot & Ankle Surgery | DX: E11.42 Type 2 diabetes mellitus with diabetic polyneuropathy (principal); L60.3 Nail dystrophy; I73.9 Peripheral vascular disease, unspecified; E11.8 Type 2 diabetes mellitus with unspecified complications; Z79.4 Long term (current) use of insulin | CPT/HCPCS: 11721 ==

== ENCOUNTER → 2024-07-14 13:33 | Outpatient (BNVA) | payer MEDICARE, SELFPAY | PROVIDERS: PCP Family Medicine; Visit Provider Nurse Practitioner Family | DX: I78.8 Other diseases of capillaries (principal); L72.0 Epidermal cyst; L82.1 Other seborrheic keratosis; L57.8 Other skin changes due to chronic exposure to nonionizing radiation; Z08 Encounter for follow-up examination after completed treatment for malignant neoplasm; Z85.828 Personal history of other malignant neoplasm of skin; L57.0 Actinic keratosis | CPT/HCPCS: 17000; 99213 ==

== ENCOUNTER 2024-08-18 08:46 | Outpatient (CLI) | payer MEDICARE, SELFPAY ==
[2024-08-18 09:27] LABS: Basophils # 0.1 10^3/uL (0.0-0.1); Basophils % 0.8 %; Eosinophils # 0.1 10^3/uL (0.0-0.8); Eosinophils % 1.2 %; Hematocrit 45.1 % (37-53); Lymphocytes # 1.3 10^3/uL (0.8-4.8); Lymphocytes % 17.2 %; Mean Corpuscular HGB Conc 31.9 g/dL (30-55); Mean Corpuscular Hemoglobin 27.5 pg (27-33); Mean Corpuscular Volume 86.2 fl (82-101); Mean Platelet Volume 10.1 fL (7.4-10.4); Monocytes # 0.6 10^3/uL (0.2-0.9); Monocytes % 8.8 %; Neutrophils % 71.6 %; Nucleated Red Blood Cells % 0 %; Platelet Count 184 10^3/cmm (157-399); Red Blood Count 5.23 10^6/uL (3.85-5.65); Red Cell Distribution Width 14.6 % (12.1-15.1); White Blood Count 7.27 10^3/uL (3.29-11.43)
[2024-08-18 09:50] LABS: Erythrocyte Sedimentation Rate 8 mm/hr (0-10)
[2024-08-18 09:56] LABS: Alanine Aminotransferase 19 U/L (0-41); Albumin Level 4.1 g/dL (3.5-5.2); Alkaline Phosphatase 63 U/L (40-130); Aspartate Amino Transferase 24 U/L (0-40); C Reactive Protein 18.7 mg/L (0.0-4.9); Globulin 2.7 g/dL (1.3-4.6); Glomerular Filtration Rate 54.7 mL/min (90-130); Total Bilirubin 0.2 mg/dL (0.15-1.2); Total Protein 6.8 g/dL (6.6-8.7)
== END 2024-08-18 08:47 | disposition home or self-care (01) ==
LOC: LAB 08:48
PROVIDERS: PCP Family Medicine; Visit Provider Internal Medicine Rheumatology
DX: M06.00 Rheumatoid arthritis without rheumatoid factor, unspecified site (principal); M1A.3790 Chronic gout due to renal impairment, unspecified ankle and foot, without tophus (tophi)
CPT/HCPCS: 36415; 80076; 82565; 85025; 85651; 86140

== ENCOUNTER 2024-09-10 10:51 | Oncology outpatient (recurring) (ONCR) | payer OTHER, SELFPAY ==
[2024-09-10 11:26] LABS: Basophils # 0.1 10^3/uL (0.0-0.1); Basophils % 1.2 %; Eosinophils # 0.1 10^3/uL (0.0-0.8); Eosinophils % 1.4 %; Hematocrit 43.9 % (37-53); Lymphocytes # 1.5 10^3/uL (0.8-4.8); Mean Corpuscular HGB Conc 31.9 g/dL (30-55); Mean Corpuscular Hemoglobin 27.1 pg (27-33); Mean Corpuscular Volume 85.1 fl (82-101); Monocytes # 0.8 10^3/uL (0.2-0.9); Monocytes % 9.5 %; Neutrophils # 5.78 10^3/uL (1.8-7.7); Neutrophils % 69.5 %; Nucleated Red Blood Cells % 0 %; Platelet Count 197 10^3/cmm (157-399); Red Blood Count 5.16 10^6/uL (3.85-5.65); Red Cell Distribution Width 14.3 % (12.1-15.1); White Blood Count 8.32 10^3/uL (3.29-11.43)
[2024-09-10 11:29] LABS: Reticulocyte % 1.9 % (0.5-2.0)
[2024-09-10 11:42] LABS: Alanine Aminotransferase 19 U/L (0-41); Alkaline Phosphatase 63 U/L (40-130); Anion Gap 17.2 (5-19); Aspartate Amino Transferase 26 U/L (0-40); Blood Urea Nitrogen 20 mg/dL (8-23); Calcium 9.3 mg/dL (8.5-10.5); Carbon Dioxide 26 mmol/L (22-29); Chloride 99 mmol/L (98-107); Creatinine Clr Calc Pharmacy 100.6357; Ferritin 152 ng/mL (30-400); Globulin 2.7 g/dL (1.3-4.6); Glomerular Filtration Rate 66.4 mL/min (90-130); Glucose 123 mg/dL (65-115); Iron 75 ug/dL (59-158); Lactate Dehydrogenase 136 U/L (135-225); Osmolality Calculated 290 mOsm/kg (285-295); Percent Saturation 18.4 % (20-50); Potassium 4.2 mmol/L (3.5-5.1); Sodium 138 mmol/L (136-145); Total Bilirubin 0.3 mg/dL (0.15-1.2); Total Iron Binding Capacity 406 mcg/dl; Total Protein 6.7 g/dL (6.6-8.7); Unsaturated Iron Binding 331 ug/dL (112-347)
== END 2024-10-04 23:59 | disposition home or self-care (01) ==
PROVIDERS: PCP Family Medicine; Visit Provider Internal Medicine
DX: D50.8 Other iron deficiency anemias (principal); I48.20 Chronic atrial fibrillation, unspecified; R03.0 Elevated blood-pressure reading, without diagnosis of hypertension; R51.9 Headache, unspecified
CPT/HCPCS: 36415; 80053; 82728; 83010; 83540; 83550; 83615; 85025; 85045; 99214

== ENCOUNTER → 2024-09-22 09:37 | Outpatient (BNVA) | payer OTHER, SELFPAY | PROVIDERS: PCP Family Medicine; Visit Provider Podiatrist Foot & Ankle Surgery | DX: E11.42 Type 2 diabetes mellitus with diabetic polyneuropathy (principal); L60.3 Nail dystrophy; E11.8 Type 2 diabetes mellitus with unspecified complications; I73.9 Peripheral vascular disease, unspecified; Z79.4 Long term (current) use of insulin | CPT/HCPCS: 11721 ==

== ENCOUNTER → 2024-10-08 13:54 | Outpatient (BNVA) | payer OTHER, SELFPAY | PROVIDERS: PCP Family Medicine; Visit Provider Internal Medicine | DX: I13.0 Hypertensive heart and chronic kidney disease with heart failure and stage 1 through stage 4 chronic kidney disease, or unspecified chronic kidney disease (principal); N18.30 Chronic kidney disease, stage 3 unspecified; I50.30 Unspecified diastolic (congestive) heart failure; I48.20 Chronic atrial fibrillation, unspecified; Z79.01 Long term (current) use of anticoagulants | CPT/HCPCS: 99214 ==

== ENCOUNTER → 2024-10-28 06:36 | Outpatient (BNVA) | payer OTHER, SELFPAY | PROVIDERS: PCP Family Medicine; Visit Provider Podiatrist Foot & Ankle Surgery | DX: E11.42 Type 2 diabetes mellitus with diabetic polyneuropathy (principal); L60.3 Nail dystrophy; Q82.8 Other specified congenital malformations of skin; E11.8 Type 2 diabetes mellitus with unspecified complications; I73.9 Peripheral vascular disease, unspecified; Z79.4 Long term (current) use of insulin | CPT/HCPCS: 11721; 17110 ==

== ENCOUNTER 2024-11-10 11:23 | Outpatient (CLI) | payer OTHER, SELFPAY ==
[2024-11-10 12:54] LABS: Hematocrit 43.8 % (37-53); Hemoglobin 14.00 g/dL (11.27-16.99); Mean Corpuscular HGB Conc 32.0 g/dL (30-55); Mean Corpuscular Hemoglobin 28.1 pg (27-33); Mean Corpuscular Volume 87.8 fl (82-101); Nucleated Red Blood Cells % 0 %; Platelet Count 218 10^3/cmm (157-399); Red Blood Count 4.99 10^6/uL (3.85-5.65); White Blood Count 9.31 10^3/uL (3.29-11.43)
[2024-11-10 13:17] LABS: Alanine Aminotransferase 24 U/L (0-41); Albumin Level 4.1 g/dL (3.5-5.2); Alkaline Phosphatase 68 U/L (40-130); Aspartate Amino Transferase 31 U/L (0-40); Globulin 3.2 g/dL (1.3-4.6); Total Protein 7.3 g/dL (6.6-8.7)
== END 2024-11-10 11:24 | disposition home or self-care (01) ==
PROVIDERS: PCP Family Medicine; Visit Provider Internal Medicine Rheumatology
DX: M1A.3790 Chronic gout due to renal impairment, unspecified ankle and foot, without tophus (tophi) (principal); M06.00 Rheumatoid arthritis without rheumatoid factor, unspecified site
CPT/HCPCS: 36415; 80076; 82565; 85025; 85651; 86140

== ENCOUNTER → 2024-11-17 10:30 | Outpatient (BNVA) | payer OTHER, SELFPAY | PROVIDERS: PCP Family Medicine; Visit Provider Internal Medicine Rheumatology | DX: Z79.899 Other long term (current) drug therapy (principal); M06.00 Rheumatoid arthritis without rheumatoid factor, unspecified site; M1A.3790 Chronic gout due to renal impairment, unspecified ankle and foot, without tophus (tophi); N18.30 Chronic kidney disease, stage 3 unspecified; M75.52 Bursitis of left shoulder | CPT/HCPCS: 99214 ==

== ENCOUNTER 2024-12-10 09:29 | Inpatient (IN) | payer OTHER, SELFPAY ==
[2024-12-10] VITALS (19 sets, daily range): BP systolic 128–184; BP diastolic 78–96; PULSE 64–93; RESP 16–27; TEMP 36.1–37.1; O2SAT 94–97; BMI 54.5; BMI 54.6
--- NOTE | 2024-12-10 09:34 | ECG_ITS ---
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 Measurements Intervals [place] Rate: 73 P: 0 WV: 0 QRS: -53 QRSD: 112 T: 57 QT: 391 QTc: 433 Interpretive Statements ATRIAL FIBRILLATION LOW QRS VOLTAGE IN PRECORDIAL LEADS [QRS DEFLECTION < 1.0 mV IN CHEST LEADS] RIGHT BUNDLE BRANCH BLOCK [120+ ms QRS DURATION, UPRIGHT V1, 40+ ms S IN I/aVL/V4/V5/V6] LEFT ANTERIOR FASCICULAR BLOCK [QRS AXIS <= -45, QR IN I, RS IN II] ANTEROSEPTAL MYOCARDIAL INFARCTION , OF INDETERMINATE AGE [40+ ms Q WAVE IN V1-V4] Compared to ECG 03/09/2023 15:34:00 No significant changes Electronically Signed On 12-10-2024 22:50:11 CDT by Robb Banegas M.D. [email or web address] [id number]
--- NOTE | 2024-12-10 09:36 | XRR_ITS ---
PROCEDURE INFORMATION: Exam: XR Chest Exam date and time: 12/10/2024 9:42 AM Age: 69 years old Clinical indication: Pain; Angina pectoris; Prior surgery; Surgery date: 6+ months; Surgery type: C spine; Additional info: Chest pain TECHNIQUE: Imaging protocol: Radiologic exam of the chest. Views: 1 view. COMPARISON: CR XR chest 1V portable [id number] 03/09/2023 1:48 PM FINDINGS: Lungs: Unremarkable. No consolidation. Pleural spaces: Unremarkable. No pleural effusion. No pneumothorax. Heart/Mediastinum: There is cardiomegaly. Bones/joints: Postop changes of partial cervical fusion is present. Severe degenerative changes of the left shoulder are noted with sclerosis and large osteophyte formation. XR/XR chest 1V portable [id number] IMPRESSION: Stable findings.
--- OUTSIDE RECORDS SUMMARY | 2024-12-10 09:36 | XMS_ITS | Encounter Summary ---
Author Organization [facility] Address [address] [facility] [address] [place] [address] Phone Care Team Providers Care Spinner Operator Name Role Phone Mily Girard MD Primary Care Provider [phone] Reason for Visit * Reason Comments Med Refill Encounter Details Date Type Department Care Team (Late st Contact Info) Description 06/07/2021 Refill [facility] [address] [place] [address] Duran Chinchilla MD [address] [facility] [address] [place] [address] Social History Tobacco Use Types Packs/Day Years Used Date Smoking Tobacco: Never Smokeless Tobacco: Never Alcohol Use Standard Drinks/Week Comments Never 0 (1 standard drink = 0.6 oz pur e alcohol) AUDIT-C Answer Date Recorded Frequency of Alcohol Consumption Never 09/24/2018 Average Number of Drinks Not on file 019 Frequency of Binge Drinking Not on file 09/05 Sex and Gender Information Value Date Recorded Sex Assigned at Male 11/25/2019 9:21 AM EDT Legal Sex Male 12:47 PM EST Gender Identity Male 11/25/2019 9:21 AM EDT Sexual Orientation Straight 11/25/2019 9: 21 AM EDT COVID-19 Exposure Response Date Recorded In the last month, have you been in contact with someone who was confirmed or suspected to have Coronavirus / COVID-19? No / Unsure 05/17/2021 1:50 PM EST documented as of this encounter Plan of Treatment Upcoming Encounters Date Type Department Care Team (Late st Contact Info) Description 12/16/2024 9:00 AM CDT Office Visit [facility], [facility] [address] [place] [phone] Mindy Estrada MD [address] [facility] [address] [place] [phone] documented as of this encounter Visit Diagnoses Not on filedocumented in this encounter Care Teams Spinner Operator Relationship Specialty Start Date End Date Mily Girard MD [address] [place] [address] PCP - General Internal Medicine 11/27/19 documented as of this encounter
--- OUTSIDE RECORDS SUMMARY | 2024-12-10 09:37 | XMS_ITS | Encounter Summary ---
Author Organization [employer] [facility] Address [address] [facility] [address] [place] [address] Phone Care Team Providers Care Sewing Line Baler Name Role Phone Mily Girard MD Primary Care Provider [phone] Reason for Visit * Reason Comments Med Refill Encounter Details Date Type Department Care Team (Late st Contact Info) Description 06/07/2020 Refill [facility] [address] [place] [address] Jessica Albert NP [address] [facility] [address] [place] [address] Social History Tobacco Use Types [...] have Coronavirus / COVID-19? No / Unsure 05/27/2020 9:39 AM EST documented as of this encounter Plan of Treatment Upcoming Encounters Date Type Department Care Team (Late st Contact Info) Description 12/16/2024 9:00 AM CDT Office Visit [facility], [facility] [address] [place] [address] Mindy Estrada MD [address] [facility] [address] [place] [phone] documented as of this encounter Visit Diagnoses Not on filedocumented in this encounter Care Teams Sewing Line Baler Relationship Specialty Start Date End Date Mily Girard MD [address] [place] [address] PCP - General Internal Medicine 11/27/19 documented as of this encounter
--- OUTSIDE RECORDS SUMMARY | 2024-12-10 09:37 | XMS_ITS | Encounter Summary ---
Author Organization [facility] Address [address] 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
--- OUTSIDE RECORDS SUMMARY | 2024-12-10 09:37 | XMS_ITS | Encounter Summary ---
Author Organization [employer] Address [address] [place] [address] Phone Care Team Providers Care Patrol Lady Name Role Phone Mily Girard MD Primary Care Provider [phone] Reason for Visit * Reason Comments Med Refill Encounter Details Date Type Department Care Team (Late st Contact Info) Description 03/17/2019 Refill [facility] [address] [place] [address] Victor Manuel Calderon, PATRICIA Social History Tobacco Use Types Packs/Day Years [...] Orientation Straight 11/25/2019 9: 21 AM EDT documented as of this encounter Plan of Treatment Upcoming Encounters Date Type Department Care Team (Late st Contact Info) Description 12/16/2024 9:00 AM CDT Office Visit [facility] [address] [place] [phone] Mindy Estrada MD [address] [facility] [address] [place] [phone] documented as of this encounter Visit Diagnoses Not on filedocumented in this encounter Care Teams Patrol Lady Relationship Specialty Start Date End Date Mily Girard MD [address] [place], [place] [address] PCP - General Internal Medicine 11/27/19 documented as of this encounter
--- OUTSIDE RECORDS SUMMARY | 2024-12-10 09:37 | XMS_ITS | Encounter Summary ---
Author Organization [facility] Address [address] [facility] Attn: Epic Prelude ADT [place] [address] Care Team Providers Care Route Cdl Driver Name Role Phone Unavailable Primary Care Provider Unavailabl e Encounter Details Date Type Department Care Team (Late st Contact Info) Description 11/30/2000 Outpatient Historical Fabrizio Cuello MD [address] [place] [address] [address] [place] [address] Social History Tobacco Use Types Packs/Day Years Used Date Smoking Tobacco: Never Assessed Sex and Gender Information Value Date Recorded Sex Assigned at Not on file 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
--- OUTSIDE RECORDS SUMMARY | 2024-12-10 09:37 | XMS_ITS | Encounter Summary ---
Author Organization [facility] Address [address] [place] [address] Phone Care Team Providers Care Supervisor Litharge Name Role Phone Mily Girard MD Primary Care Provider [phone] Encounter Details Date Type Department Care Team (Late Contact Info) Description 12/09/2024 Documentation Only [facility] [address] [place] [address] Belia Duncan MA [address] [place] [address] Social History Tobacco Use Types [...] Encounters Date Type Department Care Team (Late Contact Info) Description 12/16/2024 9:00 AM CDT Office Visit [facility] [address] [place] [phone] Mindy Estrada MD [address] [facility] [address] [place] [phone] documented as of this encounter Visit Diagnoses Not on filedocumented in this encounter Care Teams Supervisor Litharge Relationship Specialty Start Date End Date Mily Girard MD [address] [place], [place] [address] PCP - General Internal Medicine 11/27/19 documented as of this encounter
--- OUTSIDE RECORDS SUMMARY | 2024-12-10 09:37 | XMS_ITS | Encounter Summary ---
Author Organization [facility] Address [address] [facility] Attn: Epic Prelude ADT [place] [address] Care Team Providers Care Phone Manager Name Role Phone Unavailable Primary Care Provider Unavailabl e Encounter Details Date Type Department Care Team (Late st Contact Info) Description 12/18/2000 Inpatient Historical Fabrizio Cuello MD [address] [place] [address] [address] [place] [address] Social History Tobacco Use Types Packs/Day Years Used Date Smoking Tobacco: Never Assessed Sex and Gender Information Value Date Recorded Sex Assigned at Not on file 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
--- OUTSIDE RECORDS SUMMARY | 2024-12-10 09:37 | XMS_ITS | Encounter Summary ---
Author Organization [employer] Address [address] [place] [address] Phone Care Team Providers Care Rental Representative Name Role Phone Mily Girard MD Primary Care Provider [phone] Encounter Details Date Type Department Care Team (Late st Contact Info) Description 03/27/2019 Orders Only [facility] [address] [place] [address] Victor Manuel Calderon, PATRICIA Chronic kidney disease stage 3 (HCC) Social History Tobacco Use Types Packs/Day Years [...] Description 12/16/2024 9:00 AM CDT Office Visit [facility] [address] [place], [place] [address], [place] [phone] Mindy Estrada MD [address] [facility] [address] [place] [address] documented as of this encounter Procedures Procedure Name Priority Date/Time Associated Diagnosis Comments URINE ALBUMIN / CREATININE RATIO Routine 03/24/2019 Chronic kidney disease stage 3 (HCC) VITAMIN D 25 HYDROXY Routine 03/24/2019 Chronic kidney disease stage 3 (HCC) CBC Routine 03/24/2019 Chronic kidney disease stage 3 (HCC) PTH, INTACT Routine 03/24/2019 Chronic kidney disease stage 3 (HCC) RENAL FUNCTION PANEL Routine 03/24/2019 Chronic kidney disease stage 3 (HCC) documented in this encounter Results * Vit D 25 hydroxy (03/24/2019) Vitamin D, 25-OH, Total 26.7 ng/mL [facility] Blood specimen (specimen) Venous blood / Unknown 03/24/2019 us Victor Manuel Calderon NP LAB BLOOD ORDERABLES Final Result [facility] * PTH, intact (03/24/2019) Parathyroid Hormone, Intact 36 pg/mL [facility] Blood specimen (specimen) Venous blood / Unknown 03/24/2019 Victor Manuel Calderon NP LAB BLOOD ORDERABLES Final Result [facility] * Urine albumin / creatinine ratio (03/24/2019) Creatinine, Urine Random 152.7 mg/dL [facility] Albumin, Urine POC <3.0 [facility] Alb/Creat Ratio, Ur 2.00 mg/g Creat [facility] Comment:less than Urine specimen (specimen) Urine specimen obtained by clean catch procedure / Unknown 03/24/2019 Victor Manuel Calderon SUPERVISOR ST[facility] LAB URINE ORDERABLES Final Result Performing Organization Address [facility] Co de Phone Number [facility] * CBC (03/24/2019) WBC 8.3 K/uL [facility] Red Blood Cell Count 4.56 [facility] Hemoglobin 13.2 g/dL [facility] Hematocrit 39.1 % [facility] MCV 86 [facility] MCH 28.9 [facility] MCHC 33.8 [facility] RDW 13.0 [facility] Platelet Count 227 [facility] Absolute Neutrophils 5.6 [facility] Absolute Lymphocytes 1.9 [facility] Absolute Monocytes 0.6 [facility] Absolute Eosinophils 0.1 [facility] Absolute Basophils 0.1 [facility] Neutrophils 66 K/uL [facility] Lymphocytes 23 [facility] Monocytes 8 [facility] Eosinophils 1 [facility] Basophils 1 [facility] Blood specimen (specimen) Venous blood / Unknown 03/24/2019 Victor Manuel Calderon SUPERVISOR [facility] BLOOD ORDERABLES Final Result Performing Organization Address [facility]/ZIP Co de Phone Number [facility] * (ABNORMAL) Renal function panel (03/24/2019) Albumin 4.7 3.5 - 5.0 g/dL [facility] BUN 29(A) 4 - 21 mg/dL [facility] Calcium 9.9 8.7 - 10.7 mg/dL [facility] Chloride 99 99 - 108 [facility] Bicarbonate (CO2) 25 22 - 30 mmol/L [facility] Creatinine 1.58(A) 0.60 - 1.30 mg/dL [facility] eGFR 53.0 mL/min/1.7 3m*2 [facility] eGFR Non- 46.0 mL/min/1.7 3m*2 [facility] Glucose 149 [facility] Phosphorus, Serum 3.6 [facility] Potassium 4.1 3.4 - 5.5 [facility] Sodium 140 137 - 147 [facility] Blood specimen (specimen) Venous blood / Unknown 03/24/2019 Victor Manuel Calderon SUPERVISOR [facility]ONE LAB BLOOD ORDERABLES Final Result [facility] documented in this encounter Visit Diagnoses Diagnosis Chronic kidney disease stage 3 (HCC) documented in this encounter Care Teams Rental Representative Relationship Specialty Start Date End Date Mily Girard MD [address] [place] [address] PCP - General Internal Medicine 11/27/19 documented as of this encounter
--- OUTSIDE RECORDS SUMMARY | 2024-12-10 09:37 | XMS_ITS | Encounter Summary ---
Author Organization [employer] [facility] Address [address] [facility] [address] [place] [address] Phone Care Team Providers Care Welcome Desk Agent Name Role Phone Mily Girard MD Primary Care Provider [phone] Reason for Visit * Reason Comments Med Refill Encounter Details Date Type Department Care Team (Late st Contact Info) Description 12/09/2019 Refill [facility] [address] [place] [address] Santy Arnold, PATRICIA [address] [facility] [address] [place] [address] Social History Tobacco Use Types [...] have Coronavirus / COVID-19? No / Unsure 11/27/2019 12:41 PM EDT documented as of this encounter Plan of Treatment Upcoming Encounters Date Type Department Care Team (Late st Contact Info) Description 12/16/2024 9:00 AM CDT Office Visit [facility], [facility] [address] [place] [phone] Mindy Estrada MD [address] [facility] [address] [place] [phone] documented as of this encounter Visit Diagnoses Not on filedocumented in this encounter Care Teams Welcome Desk Agent Relationship Specialty Start Date End Date Mily Girard MD [address] [place] [address] PCP - General Internal Medicine 11/27/19 documented as of this encounter
--- OUTSIDE RECORDS SUMMARY | 2024-12-10 09:37 | XMS_ITS | Encounter Summary ---
Author Organization [facility] [employer] Address [address] [place] [address] Phone Care Team Providers Care Social Studies Teacher Name Role Phone Mily Girard MD Primary Care Provider [phone] Encounter Details Date Type Department Care Team (Late st Contact Info) Description 12/09/2024 Telephone [facility] [address] [place] [address] Belia Duncan MA [address] [place] [address] Social History Tobacco Use Types [...] AM EDT documented as of this encounter Miscellaneous Notes * Telephone Encounter - Belia Duncan MA - 12/09/2024 3:40 PM CDT Confirmed appointment pt is getting labs done tomorrow at oncology appointment and he has the papercopy so he is just taking those with him. documented in this encounter Plan of Treatment Upcoming Encounters Date Type Department Care Team (Late st Contact Info) Description 12/16/2024 9:00 AM CDT Office Visit [facility], [facility] [address] [place] [id number] Mindy Estrada MD [address] [facility] [address] [place] [address] Scheduled Orders Name Type Priority Associated Diagnoses Orde r Schedule CBC Lab Routine Chronic kidney disease stage 3A (HCC) Hypertensive chronic kidney disease with stage 1 through stage 4 chronic kidney disease, or unspecified chronic kidney disease Type 2 diabetes mellitus with diabetic chronic kidney disease (HCC) Expected: 12/09/2024, Expires: 01/09/2026 Renal Function Panel Lab Routine Chronic kidney disease stage 3A (HCC) Hypertensive chronic kidney disease with stage 1 through stage 4 chronic kidney disease, or unspecified chronic kidney disease Type 2 diabetes mellitus with diabetic chronic kidney disease (HCC) Expected: 12/09/2024, Expires: 01/09/2026 Urine Albumin / Creatinine Ratio Lab Routine Chronic kidney disease stage 3A (HCC) Hypertensive chronic kidney disease with stage 1 through stage 4 chronic kidney disease, or unspecified chronic kidney disease Type 2 diabetes mellitus with diabetic chronic kidney disease (HCC) Expected: 12/09/2024, Expires: 01/09/2026 PTH, Intact Lab Routine Chronic kidney disease stage 3A (HCC) Hypertensive chronic kidney disease with stage 1 through stage 4 chronic kidney disease, or unspecified chronic kidney disease Type 2 diabetes mellitus with diabetic chronic kidney disease (HCC) Expected: 12/09/2024, Expires: 01/09/2026 documented as of this encounter Visit Diagnoses Diagnosis Chronic kidney disease stage 3A (HCC)- Primary Hypertensive chronic kidney disease with stage 1 through stage 4 chronic kidney disease, or unspecified chronic kidney disease Type 2 diabetes mellitus with diabetic chronic kidney disease (HCC) documented in this encounter Care Teams Social Studies Teacher Relationship Specialty Start Date End Date Mily Girard MD [address] [place] [address] PCP - General Internal Medicine 11/27/19 documented as of this encounter
--- OUTSIDE RECORDS SUMMARY | 2024-12-10 09:37 | XMS_ITS | Encounter Summary ---
Author Organization [facility] Address [address] 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
--- OUTSIDE RECORDS SUMMARY | 2024-12-10 09:37 | XMS_ITS | Clinical Summary ---
Author Organization [facility] Address [address] [place] [address] Care Team Providers Care Crown Pouncer Name Role Phone Mily Girard MD Primary Care Provider [phone] Allergies Active Allergy Reactions Criticality Noted Date Comments Baclofen 11/27/2019 kidneys Benzonatate Diarrhea 04/02/2019 Empagliflozin Anaphylaxis High 05/27/2020 Linaclotide Other (see comments) High 09/17/2018 Metformin Diarrhea 09/17/2018 Naproxen 09/24/2018 Statins Other (see comments) Medium 09/17/2018 Sulfa Antibiotics Other (see comments) Medium 09/18/19 19 Tramadol 05/27/2020 Makes me too aggressive Medications * This document contains information received from the source organization and may not represent a complete record from that organization. pantoprazole (PROTONIX) 40 MG EC tablet Take 1 tablet by mouth 1 (one) time each day Active nitroglycerin (NITROSTAT) 0.4 MG SL tablet Active metoprolol tartrate (LOPRESSOR) 50 MG tablet Take 1 tablet by mouth Take 1.5 tablets every morning and every evening Active isosorbide mononitrate (IMDUR) 30 MG 24 hr tablet Take 1 tablet by mouth 1 (one) time each day Active fenofibrate (TRICOR) 145 MG tablet Take 145 mg by mouth 1 (one) time each day Active allopurinol (ZYLOPRIM) 100 MG tablet 100 mg Take 2 tablets by mouth daily 0 Active verapamil SR (CALAN-SR) 240 MG CR tablet Take 240 mg by mouth daily 0 Active Xarelto 20 MG tablet Take 20 mg by mouth daily 0 Active ezetimibe (ZETIA) 10 MG tablet Take 10 mg by mouth 1 (one) time each day 1 Active Acetaminophen (TYLENOL EXTRA STRENGTH PO) Take 1,000 mg by mouth if needed Active ergocalciferol 1.25 MG (46150 UT) capsule TAKE 1 CAPSULE BY MOUTH ONCE EVERY MONTH 12 capsule 2 Active bumetanide (BUMEX) 1 MG tablet Take 1 mg by mouth 1 (one) time each day Pt takes one tab in the AM and 1/2 tab in the pm Active predniSONE (DELTASONE) 10 MG tablet Take 10 mg by mouth 1 (one) time each day if needed Active gabapentin (NEURONTIN) 100 MG capsule Take 100 mg by mouth in the morning and 100 mg in the evening and 100 mg before bedtime. PRN only. Active rOPINIRole (REQUIP) 0.25 MG tablet Take 0.25 mg by mouth at night if needed Active Diclofenac Sodium (Voltaren) 1 % gel Apply topically Acti ve acyclovir (ZOVIRAX) 5 % ointment Apply topically 6 (six) times a day Space applications every 3 hours. Active eplerenone (INSPRA) 25 MG tablet Take 25 mg by mouth 1 (one) time each day 3 Active Lantus SoloStar 100 UNIT/ML injection 60 Units 1 (one) time each day in the morning 3 Active ketoconazole (NIZORAL) 2 % cream APPLY DIRECTED TO SKIN TWICE DAILY NEEDED FOR RASH 3 Active leflunomide (ARAVA) 20 MG tablet Take 20 mg by mouth 1 (one) time each day 3 Active mupirocin (BACTROBAN) 2 % ointment APPLY TO AFFECTED AREA THREE TIMES DAILY 3 Active Mounjaro 7.5 MG/0.5ML solution pen-injector Inject 7.5 mg under the skin per week 4 Active insulin lispro protamine-insul in lispro (HumaLOG 50-50) (50-50) 100 UNIT/ML inj pen Inject 50 Units under the skin in the morning and 50 Units at noon and 50 Units in the evening. Active ferrous sulfate 325 (65 Fe) MG tablet Take 325 mg by mouth in the morning and 325 mg in the evening. Active Active Problems Problem Noted Date Diagnosed Date Chronic kidney disease stage 3 09/24/2018 Essential (primary) hypertension 09/24/2018 Type 2 diabetes mellitus without complication Atrial fibrillation 09/24/2018 Vitamin D below reference range 09/24/2018 Encounters Date Type Department Care Team Description 12/09/2024 Documentation Only [facility] [address] [place] [address] Belia Duncan MA 12/09/2024 Telephone [facility], [facility] [address] [place] [address] Belia Duncan MA from Last 3 Months Immunizations Immunization Administration Dates Next Due Influenza, Quadrivalent, Preservative Free 01/17 Tdap 01/17/2019 Family History Medical History Relation Comments Cancer Father 2 Heart disease Father 2 Dementia Mother 2 Diabetes Mother 2 Gout Mother 2 Hypertension Mother 2 Relation Status Comments Father 1 Father 2 Mother 1 Alive Mother 2 Social History Tobacco Use Types Packs/Day Years Used Date Smoking Tobacco: Never Smokeless Tobacco: Never Tobacco Cessation:Counseling Given: Not Answered Alcohol Use Standard Drinks/Week Comments Never 0 [...] Orientation Straight 11/25/2019 9: 21 AM EDT Last Filed Vital Signs Vital Sign Reading Time Taken Comments Blood Pressure 124/78 12/19/2023 9:02 AM CDT Pulse 68 12/19/2023 9:02 AM CDT Temperature 36.1 C (97 F) 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 [address] [place] [address] Health Maintenance Due Date Last Done Comments Pneumococcal Vaccine: 50+ Years (1 of 2 - PCV) 07/16/1974 Colorectal Cancer Screening: Annual FOBT 07/16/2004 Colorectal Cancer Screening: Colonoscopy 07/16/2004 Colorectal Cancer Screening: Sigmoidoscopy 07/16/2004 Diabetes: Ophthalmology Exam 09/24/2018 Diabetes: Pedal Pulse Checked 09/24/2018 Diabetes: Sensory Foot Exam 09/24/2018 Diabetes: Visual Foot Exam 09/24/2018 Diabetes: Hemoglobin A1C 02/08/2022 022, 06/17/2021, 05/19/2020, Additional history exists Influenza Vaccine (#1) 2025 01/17/2019 Hepatitis B Vaccine Aged Out No longe r eligible based on patient's age to complete this topic Procedures Procedure Name Priority Date/Time Associated Diagnosis Comments HEMOGLOBIN A1C (EXTERNAL RESULT ENTRY) Routine 11/08/2021 8:09 AM CDT from Last 3 Months or Most Recently Relevant to Health Maintenance Results * Hemoglobin A1C (11/08/2021 8:09 AM CDT) Hemoglobin A1C 10.9 Blood specimen (specimen) Venous blood / Unknown 11/08/2021 8:09 AM CDT Narrative Lillian Durant MA - 11/09/2021 5:01 PM CDT MICHEL, [facility] [place] [address] [facility].[id number] William Atkinson MD Lilian Mcintyre ADMINISTRATIVE ASSISTANT FRONT DESK LAB BLOOD ORDERABLES Final R esult from Last 3 Months or Most Recently Relevant to Health Maintenance Insurance Medicaid [place] ([id number]) [facility] Medicare Care Teams Crown Pouncer Relationship Specialty Start Date End Date Mily Girard MD [address] [address] PCP - General Internal Medicine 11/27/19
--- OUTSIDE RECORDS SUMMARY | 2024-12-10 09:37 | XMS_ITS | Encounter Summary ---
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
--- OUTSIDE RECORDS SUMMARY | 2024-12-10 09:37 | XMS_ITS | Clinical Summary ---
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
--- NOTE | 2024-12-10 10:00 | W.ED.CHESTPA ---
HPI - Chest Pain General: Chief Complaint: Chest Pain Stated Complaint: chest pain Time Seen by Provider: 12/10/24 09:35 History of Present Illness: 69-year-old male with a history of chronic microcytic anemia who is seen at the oncology center and has had iron infusions in the past. Patient was directed here because he was there and complained of chest pain. For the last 2 weeks she has had intermittent episodes of chest pain usually occurring while at rest eventually resolving with rest and when he says he is relaxing himself. Chest pain can last anywhere from hours to most of the day. He is not associated with activity. Previous diagnostic cath see past medical history below he basically had mild LAD stenosis only 20% no other coronary artery disease this was done in June 2019. He has no history of DVT or PE or arrhythmias he has not had any further testing since that time. Associated symptoms: Deny abdominal pain, dyspnea or fever(s) Related Data Home Medications ?Medication ?Instructions ?Recorded ?Confirmed ergocalciferol (vitamin D2) 1,250 50,000 unit PO Q30D 05/22/19 12/10/24 mcg (50,000 unit) capsule fenofibrate nanocrystallized 145 145 mg PO DAILY 05/22/19 12/10/24 mg tablet diclofenac sodium 1 % topical gel 4 g topical QID PRN Pain, Mild 06/19/19 12/10/24 triamcinolone acetonide 0.1 % 1 applic topical BID PRN joint 04/11/21 12/10/24 topical cream inflamation acyclovir 5 % topical ointment 1 applic topical 6XD PRN fever 09/05/23 12/10/24 blisters and rash areas magnesium chelate, malate 125 mg PO BID 09/05/23 12/10/24 psyllium husk 0.52 gram capsule 0.52 g PO BID 09/05/23 12/10/24 (Fiber (psyllium husk)) ketoconazole 2 % shampoo See Rx Instructions .Route .COMPLEX 03/12/24 12/10/24 acetaminophen 650 mg 650 mg PO Q12H 10/08/24 12/10/24 tablet,extended release (Tylenol Arthritis Pain) tirzepatide 12.5 mg/0.5 mL 12.5 mg SUBCUT Q7D 10/08/24 12/10/24 subcutaneous pen injector (Mounjaro) allopurinol 100 mg tablet 200 mg PO QPM 12/10/24 12/10/24 ezetimibe 10 mg tablet 10 mg PO DAILY 12/10/24 12/10/24 insulin glargine 100 unit/mL (3 60 unit SUBCUT DAILY 12/10/24 12/10/24 mL) subcutaneous pen (Lantus Solostar U-100 Insulin) insulin glargine U-300 conc 300 60 unit SUBCUT QAM 12/10/24 12/10/24 unit/mL (3 mL) subcutaneous pen (Toujeo Max U-300 SoloStar) insulin lispro 100 unit/mL 50 unit SUBCUT TID 12/10/24 12/10/24 subcutaneous pen isosorbide mononitrate 30 mg 60 mg PO DAILY 12/10/24 12/10/24 tablet,extended release 24 hr ketoconazole 2 % topical cream See Rx Instructions .Route 12/10/24 12/10/24 .COMPLEX affected leflunomide 20 mg tablet 20 mg PO QAM 12/10/24 12/10/24 rivaroxaban 20 mg tablet (Xarelto) 20 mg PO QAM 12/10/24 12/10/24 verapamil 240 mg tablet,extended 240 mg PO QAM 12/10/24 12/10/24 release Previous Rx's ?Medication ?Instructions ?Recorded blood-glucose meter (Accu-Chek #1 ea 01/21/20 Guide Glucose Meter) Diabetic shoes with inserts #1 ea 02/04/20 lancets (Accu-Chek Fastclix Lancet #200 ea 03/04/20 Drum) Diabetic shoes with molded inserts #1 ea 09/14/20 pen needle, diabetic 31 gauge x #100 ea 03/18/21 1/ pen needle, diabetic 32 gauge x #100 ea 03/28/21 (BD Gabriella 2nd Gen Pen Needle) Diabetic shoes with 3 pairs of #1 ea 11/01/21 inserts flash glucose scanning reader #1 ea 02/21/22 (FreeStyle Huma 2 [place]) flash glucose sensor (FreeStyle #6 ea 02/21/22 Huma 2 Sensor kit) nitroglycerin 0.4 mg sublingual 0.4 mg sublingual DIRECTED PRN 07/26/22 tablet (Nitrostat) CHEST PAIN #25 tabs Diabetic shoes #1 ea 07/24/23 blood sugar diagnostic (Accu-Chek #300 ea 11/19/23 Guide test strips) metoprolol tartrate 50 mg tablet 100 mg (2 x 50 mg) PO BID #240 tabs 05/28/24 bumetanide 1 mg tablet See Rx Instructions .Route 06/15/24 .COMPLEX #120 tabs eplerenone 25 mg tablet 25 mg PO DAILY #90 tabs 10/21/24 prednisone 10 mg tablet See Rx Instructions PO .COMPLEX 11/17/24 PRN joint pain #30 tabs Allergies Allergy/AdvReac Type Severity Reaction Status Date / Time empagliflozin (From Allergy Severe difficult Verified 12/10/24 09:08 Jardiance) breathing linaclotide (From Linzess) Allergy Unknown Hypertension; Verified 12/10/24 09:08 Afib metformin Allergy Unknown ADR-Diarrhe Verified 12/10/24 09:08 a naproxen Allergy Unknown Affects Verified 12/10/24 09:08 kidney fuctions Cjnircp-LUM-ByC Reductase Allergy Unknown Severe Verified 12/10/24 09:08 Inhibitor (Fvtaewb-Nae-Zev Muscle Pain Reductase Inhibitor) Sulfa (Sulfonamide Allergy Unknown ADR-Itching Verified 12/10/24 09:08 Antibiotics) baclofen Allergy Affects Verified 12/10/24 09:08 kidney fuctions NSAIDS (Non-Steroidal Allergy Affects Verified 12/10/24 09:08 Anti-Inflamma Kidney functions tramadol AdvReac Intermediate aggression Verified 12/10/24 09:08 Review of Systems Const: Denies: fever(s) or chills Card: Denies: chest pain Resp: Denies: dyspnea GI: Denies: abdominal pain : Denies: dysuria, urinary frequency or urinary urgency Musc: Denies: neck pain or back pain Skin/Breast: Denies: rash PFSH ED PFSH: Medical History Dysphagia Blood transfusion declined because patient is Christianity Chronic anticoagulation Melena Hypertrophy of uvula Diabetes type 2, uncontrolled COVID-19 COVID Dehydration Acute kidney injury superimposed on CKD Hypertrophy of uvula Retrosternal thyroid goiter Dyspnea LINDA on CPAP Ventral incisional hernia Substernal thyroid goiter Diverticulosis Rectal polyp External hemorrhoids with complication Rectal bleeding Morbid obesity with BMI of 60.0-69.9, adult Vitamin D deficiency Hyperlipidemia Anemia Morbid obesity Uncontrolled type 2 diabetes mellitus Diabetic neuropathy Stage 3 chronic kidney disease due to diabetes mellitus Neuropathy Rheumatoid arthritis In remission Carpal tunnel syndrome Osteoarthritis Gout CKD (chronic kidney disease) stage 3, GFR 30-59 ml/min Seronegative rheumatoid arthritis in remission Otalgia Chest pain Patient underwent coronary angiogram which was normal GERD (gastroesophageal reflux disease) Renal insufficiency Improved after IV fluid Diastolic heart failure Atrial fibrillation on anticoagulation Surgical History History of uvulectomy S/P skin cancer resection History of colonoscopy S/P appendectomy S/P thyroid surgery S/P tonsillectomy S/P hernia repair S/P trigger finger release S/P carpal tunnel release 2x left S/P cervical disc replacement History of esophagogastroduodenoscopy (EGD) Family History Father Cancer Prostate Hypertension Hypercholesterolemia Heart disease Mother Hypertension Hypercholesterolemia Anesthesia complication Daughter Anesthesia complication Denies family history of Bleeding disorder Social History Smoking and tobacco/nicotine status: never used tobacco/nicotine Alcohol intake: former Substance/Drug Use: never Lives independently: Yes Household members: spouse Marital status: Current occupational status: disabled Alexandra/Orthodox: Christianity Special alexandra needs: Yes Agree to transfusion: No Physical Exam Const: GENERAL APPEARANCE: cooperative ORIENTATION/CONSCIOUSNESS: Yes awake, Yes oriented to person, Yes oriented to place and Yes oriented to time HENMT: COMMON NORMALS: normocephalic, atraumatic and hearing grossly normal bilaterally HEAD & SCALP: normocephalic and atraumatic Resp: COMMON NORMALS: normal respiratory effort, No retractions, No use of accessory muscles and clear to auscultation bilaterally AUSCULTATION: clear to auscultation bilaterally Cardio: COMMON NORMALS: regular rate, regular rhythm and No murmurs present (Cardio) RATE: regular rate RHYTHM: regular rhythm GI: COMMON NORMALS: Soft to palpation and No hepatosplenomegaly present AUSCULTATION: Yes normoactive bowel sounds PALPATION: Yes Soft to palpation, No Tenderness to palpation present (GI), No Guarding due to palpation present (GI) and Yes No hepatosplenomegaly present Extremity: COMMON NORMALS: normal to inspection, capillary refill normal, no clubbing, cyanosis or edema, no calf tenderness and no pedal edema Neuro: SENSORIUM/ORIENTATION: Yes oriented to person, Yes oriented to place and Yes oriented to time Skin: COMMON NORMALS: no rashes or lesions noted GENERAL SKIN EXAM: no rashes or lesions noted Course Vital Signs: Vital signs: Vital Signs Temperature 98.7 F 12/10/24 16:00 Pulse Rate 81 12/10/24 16:00 Respiratory Rate 24 H 12/10/24 16:00 Blood Pressure 146/79 12/10/24 16:00 Pulse Oximetry 97 12/10/24 16:00 Oxygen Delivery Me thod Room Air 12/10/24 16:00 MDM - Chest Pain Medical Decision Making Patient has had escalating angina over the last 2 months with increasing shortness of breath she also noticed increasing swelling in his legs. No previously known history of coronary artery disease. He had a angiogram done 5 years ago that showed minimal coronary disease in the LAD. Discussed with hospitalist discussed with cardiology will admit for further evaluation complete and cardiology consult for further evaluation Medical Records June 17, 2019 Diagnostic Cath Status: Elective Diagnostic Findings LM has 0% stenosis. CX has 0% stenosis. RCA has 0% stenosis. pLAD to mLAD: Mild 20% stenosis, JAYNE: 3 flow. Coronary angiography shows right dominance. Lab Data 12/10/24 09:54 12/10/24 09:54 Radiology Impressions Chest X-Ray 12/10/24 09:36 IMPRESSION: Stable findings. Laboratory Results WBC 9.18 10^3/uL (3.29-11.43) 12/10/24 09:54 RBC 5.18 10^6/uL (3.85-5.65) 12/10/24 09:54 Hgb 14.40 g/dL (11.27-16.99) 12/10/24 09:54 Hct 44.7 % (37-53) 12/10/24 09:54 MCV 86.3 fl (82-101) 12/10/24 09:54 MCH 27.8 pg (27-33) 12/10/24 09:54 MCHC 32.2 g/dL (30-55) 12/10/24 09:54 RDW 14.1 % (12.1-15.1) 12/10/24 09:54 Plt Count 219 10^3/cmm (157-399) 12/10/24 09:54 MPV 9.9 fL (7.4-10.4) 12/10/24 09:54 Neut % (Auto) 74.1 % 12/10/24 09:54 Lymph % (Auto) 15.9 % 12/10/24 09:54 [place] % (Auto) 7.6 % 12/10/24 09:54 Eos % (Auto) 1.2 % 12/10/24 09:54 Baso % (Auto) 0.9 % 12/10/24 09:54 Neut # (Auto) 6.80 10^3/uL (1.8-7.7) 12/10/24 09:54 Lymph # (Auto) 1.5 10^3/uL (0.8-4.8) 12/10/24 09:54 [place] # (Auto) 0.7 10^3/uL (0.2-0.9) 12/10/24 09:54 Eos # (Auto) 0.1 10^3/uL (0.0-0.8) 12/10/24 09:54 Baso # (Auto) 0.1 10^3/uL (0.0-0.1) 12/10/24 09:54 Nucleated RBC % (auto) 0 % 12/10/24 09:54 Nucleated RBCs # 0.0 /100WBC 12/10/24 09:54 Sodium 143 mmol/L (136-145) 12/10/24 09:54 Potassium 4.1 mmol/L (3.5-5.1) 12/10/24 09:54 Chloride 102 mmol/L (98-107) 12/10/24 09:54 Carbon Dioxide 29 mmol/L (22-29) 12/10/24 09:54 Anion Gap 16.1 (5-19) 12/10/24 09:54 BUN 18 mg/dL (8-23) 12/10/24 09:54 Creatinine 1.1 mg/dL (0.7-1.2) 12/10/24 09:54 GFR Calculation 66.4 mL/min (90-130) L 12/10/24 09:54 Glucose 120 mg/dL (65-115) H 12/10/24 09:54 Calculated Osmolality 299 mOsm/kg (285-295) H 12/10/24 09:54 Calcium 9.0 mg/dL (8.5-10.5) 12/10/24 09:54 Total Bilirubin 0.4 mg/dL (0.15-1.2) 12/10/24 09:54 AST 37 U/L (0-40) 12/10/24 09:54 ALT 29 U/L (0-41) 12/10/24 09:54 Alkaline Phosphatase 63 U/L (40-130) 12/10/24 09:54 Troponin T Baseline 19 ng/L (0-15) H 12/10/24 09:54 Troponin T 120 Minute 18.09 ng/L (0-15) H 12/10/24 11:54 Delta Troponin T -0.91 ABS# (0-10) L 12/10/24 11:54 Total Protein 6.6 g/dL (6.6-8.7) 12/10/24 09:54 Albumin 4.3 g/dL (3.5-5.2) 12/10/24 09:54 Globulin 2.3 g/dL (1.3-4.6) 12/10/24 09:54 All radiology interpretation(s) finalized by discharge Discharge Plan Discharge Patient Disposition: Admitted As Inpatient Admit Provider: Tara Younger Clinical Impression: Unstable angina pectoris Atrial fibrillation Qualifiers: Atrial fibrillation type: unspecified chronic Qualified Code(s): I48.20 - Chronic atrial fibrillation, unspecified Condition: Stable Coding Level of Care Code ED Director Of Business Operations for Marcelle Bang
[2024-12-10 10:02] LABS: Hematocrit 44.7 % (37-53); Hemoglobin 14.40 g/dL (11.27-16.99); Mean Corpuscular HGB Conc 32.2 g/dL (30-55); Mean Corpuscular Hemoglobin 27.8 pg (27-33); Mean Corpuscular Volume 86.3 fl (82-101); Nucleated Red Blood Cells % 0 %; Platelet Count 219 10^3/cmm (157-399); Red Blood Count 5.18 10^6/uL (3.85-5.65); White Blood Count 9.18 10^3/uL (3.29-11.43)
[2024-12-10 10:19] LABS: Troponin(5th) Baseline 19 ng/L (0-15)
[2024-12-10 10:28] LABS: Alanine Aminotransferase 29 U/L (0-41); Albumin Level 4.3 g/dL (3.5-5.2); Alkaline Phosphatase 63 U/L (40-130); Blood Urea Nitrogen 18 mg/dL (8-23); Calcium 9.0 mg/dL (8.5-10.5); Carbon Dioxide 29 mmol/L (22-29); Chloride 102 mmol/L (98-107); Creatinine Clr Calc Pharmacy 101.0728; Globulin 2.3 g/dL (1.3-4.6); Glucose 120 mg/dL (65-115); Osmolality Calculated 299 mOsm/kg (285-295); Sodium 143 mmol/L (136-145); Total Protein 6.6 g/dL (6.6-8.7)
[2024-12-10 10:34] LABS: Anion Gap 16.1 (5-19); Aspartate Amino Transferase 37 U/L (0-40); Potassium 4.1 mmol/L (3.5-5.1)
--- NOTE | 2024-12-10 12:05 | ECG_ITS ---
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 Measurements Intervals [place] Rate: 63 P: 0 AL: 0 QRS: -54 QRSD: 112 T: 30 QT: 404 QTc: 416 Interpretive Statements ATRIAL FIBRILLATION LOW QRS VOLTAGE IN PRECORDIAL LEADS [QRS DEFLECTION < 1.0 mV IN CHEST LEADS] RIGHT BUNDLE BRANCH BLOCK [120+ ms QRS DURATION, UPRIGHT V1, 40+ ms S IN I/aVL/V4/V5/V6] LEFT ANTERIOR FASCICULAR BLOCK [QRS AXIS <= -45, QR IN I, RS IN II] ANTEROSEPTAL MYOCARDIAL INFARCTION , OF INDETERMINATE AGE [40+ ms Q WAVE IN V1-V4] Compared to ECG 12/10/2024 09:34:49 No significant changes Electronically Signed On 12-10-2024 22:53:50 CDT by Robb Banegas M.D. [email or web address]
[2024-12-10 12:23] LABS: Troponin 5 2HR 18.09 ng/L (0-15)
[2024-12-10 12:33] LABS: Troponin 5 2HR Delta -0.91 ABS# (0-10)
[2024-12-10] MEDS: nitroglycerin 1 gm/inch oint Pkt 0.5 INCH TOPICAL (12:33)
--- NOTE | 2024-12-10 13:58 | USCV_ITS ---
Mauro Solis Age: 69 Gender: M : 1955 Exam Date: 12/10/2024 15:31 Ordering Phys: Mallory Lees NP Technologist: Exam Location: [facility] [place] Indication: cp sob BP: 163 / 83 HR: 88 Rhythm: Sinus Technical Quality: Adequate MEASUREMENTS (Male / Female) Normal Values 2D ECHO LV Diastolic Diameter PLAX 5.4 cm 4.2 - 5.9 / 3.9 - 5.3 cm IVS Diastolic Thickness 1.6 cm 0.6 - 1.0 / 0.6 - 0.9 cm IVS Systolic Thickness 2.1 cm LVPW Diastolic Thickness 1.5 cm 0.6 - 1.0 / 0.6 - 0.9 cm LVPW Systolic Thickness 2.3 cm LVOT Diameter 2.2 cm LV Ejection Fraction 2D Teich 64.2 % LV Ejection Fraction MOD 4C 61.6 % LV Ejection Fraction MOD 2C 52.2 % LV Ejection Fraction 2C AL 51.0 % LA Diameter 5.0 cm RA Systolic Volume 4C AL 67.9 ml RA Systolic Volume 4C MOD 68.2 ml Aorta at Sinotubular Diameter 3.2 cm M-MODE LA Ao Ratio MM 1.5 AV Cusp Separation MM 2.4 cm DOPPLER AV Peak Velocity 140.0 cm/s LVOT Peak Velocity 105.0 cm/s AV Area Cont Eq vti 4.1 cm squared AV Area Cont Eq pk 3.0 cm squared MV Peak Velocity 109.0 cm/s MV Area PHT 3.1 cm squared Mitral E to A Ratio 2.2 TV Peak Velocity 132.5 cm/s TR Peak Velocity 149.0 cm/s TR Peak Gradient 8.9 mmHg TV Peak E Velocity 114.0 cm/s PV Peak Velocity 95.0 cm/s FINDINGS Left Ventricle Normal left ventricular size, systolic function and wall thickness, with no regional wall motion abnormalities. Left ventricular ejection fraction is estimated at 60 %. Grade II/IV diastolic dysfunction, moderately elevated filling pressures. Right Ventricle The right ventricle is normal in size and function. Right Atrium The right atrium is normal in size. Left Atrium The left atrium is normal in size. Mitral Valve Moderately thickened mitral valve. No mitral valve stenosis. Trace mitral valve regurgitation. Aortic Valve Moderate aortic valve calcification. No aortic valve stenosis. Trace aortic valve regurgitation. Tricuspid Valve Structurally normal tricuspid valve without significant stenosis or regurgitation. Pulmonary artery systolic pressure is normal. Pulmonic Valve Structurally normal pulmonic valve without significant stenosis. There is no pulmonic regurgitation. Pericardium Normal pericardium without effusion. Aorta Normal ascending aorta dimension. IVC The inferior vena cava appears normal. CONCLUSIONS Normal left ventricular size, systolic function and wall thickness, with no regional wall motion abnormalities. Left ventricular ejection fraction is estimated at 60 %. Grade II/IV diastolic dysfunction, moderately elevated filling pressures. Moderate aortic valve calcification. No aortic valve stenosis. Trace aortic valve regurgitation. There is no pericardial effusion. Right atrial pressure is around 5 mm of mercury. Orlando Armstrong MD (Electronically Signed) Final Date: 10 December 2024 18:20 S
[2024-12-10] MEDS: pneumococcal (23 valent) SDV 0.5 mL IM (14:07)
[2024-12-10] MEDS: bumetanide 0.25 mg/mL SDV 4 mL 1 MG IVP ×2 (14:09→21:26)
--- NOTE | 2024-12-10 14:35 | PM.CONSULT ---
Providers/Reason For Consult Consulting Physician/Specialty*: Dr. Armstrong Reason for Consult*: Chest pain Attending Physician: Tara Younger MD Primary Care Provider: Samantha Vinson DO History of Present Illness History of Present Illness Mauro Solis is a 69 year old male with a history of chronic anemia seen by oncology center had developed chest pain and shortness of breath for the last 2 weeks. This is occurred even while at rest. The patient states that these episodes have been intermittent. He states he is mainly sedentary. He does take Xarelto at home for history of A-fib. Last dose was this morning. Patient states that his chest pressure was at the center of the chest and radiated to his jaw at times and even his neck. He states that he has swelling that is chronic in his lower extremities but states that lately the Bumex has not been getting rid of his edema. At the time of my exam he has been given Nitropaste and his chest pain is resolving. 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 Patient has a history of diabetes A-fib, hypercholesterolemia. Patient also has a history of similar symptoms in 2020 in which he had a 20% narrowing of the LAD with no other significant coronary artery disease. EKG showed A-fib with no acute ST or T wave abnormalities. Creatinine stable at 1.1. Troponin was 19?18.09 awaiting 6-hour troponin. Review of Systems Narrative: Consitutional: denies fever, chills, body aches, or changes in appetite, denies abnormal weight loss Eyes: Denies changes in vision Card: reports improving mild chest pressure at the center of his chest, denies palpitations, irregular heart rhythm, edema, syncope, reports shortness of breath with exertion relieved with rest, reports lower extremity edema Resp: Reports shortness of breath on exertion GI: denies abdominal pain, denies nausea or voimting, denies blood in stool : denies blood in urine, denies dysuria Musc: Denies extremity pain, denies limited range of motion or recent injury Skin: Denies rash, lesions, or wounds, denies changes to skin color Neuro: Denies nubmness in extremities, h/a, s/s of stroke Noah: Denies easy bruiding/bleeding Medications/Allergies Home Medications ?Medication ?Instructions ?Recorded ?Confirmed ?Last Taken ?Type ergocalciferol (vitamin D2) 1,250 50,000 unit PO Q30D 05/22/19 12/10/24 12/09/24 History mcg (50,000 unit) capsule fenofibrate nanocrystallized 145 145 mg PO DAILY 05/22/19 12/10/24 12/10/24 History mg tablet diclofenac sodium 1 % topical gel 4 g topical QID PRN Pain, Mild 06/19/19 12/10/24 Unknown History blood-glucose meter (Accu-Chek #1 ea 01/21/20 12/10/24 Unknown Rx Guide Glucose Meter) Diabetic shoes with inserts #1 ea 02/04/20 12/10/24 Unknown Rx lancets (Accu-Chek Fastclix Lancet #200 ea 03/04/20 12/10/24 Unknown Rx Drum) Diabetic shoes with molded inserts #1 ea 09/14/20 12/10/24 Unknown Rx pen needle, diabetic 31 gauge x #100 ea 03/18/21 12/10/24 Unknown Rx 1/4 pen needle, diabetic 32 gauge x #100 ea 03/28/21 12/10/24 Unknown Rx 5/32 (BD Gabriella 2nd Gen Pen Needle) triamcinolone acetonide 0.1 % 1 applic topical BID PRN joint 04/11/21 12/10/24 03/01/23 History topical cream inflamation Diabetic shoes with 3 pairs of #1 ea 11/01/21 12/10/24 Unknown Rx inserts flash glucose scanning reader #1 ea 02/21/22 12/10/24 Unknown Rx (FreeStyle Huma 2 [place]) flash glucose sensor (FreeStyle #6 ea 02/21/22 12/10/24 Unknown Rx Huma 2 Sensor kit) nitroglycerin 0.4 mg sublingual 0.4 mg sublingual DIRECTED PRN 07/26/22 12/10/24 03/01/23 Rx tablet (Nitrostat) CHEST PAIN #25 tabs Diabetic shoes #1 ea 07/24/23 12/10/24 Unknown Rx acyclovir 5 % topical ointment 1 applic topical 6XD PRN fever 09/05/23 12/10/24 Unknown History blisters and rash areas magnesium chelate, malate 125 mg PO BID 09/05/23 12/10/24 12/10/24 History psyllium husk 0.52 gram capsule 0.52 g PO BID 09/05/23 12/10/24 12/10/24 History (Fiber (psyllium husk)) blood sugar diagnostic (Accu-Chek #300 ea 11/19/23 12/10/24 Unknown Rx Guide test strips) ketoconazole 2 % shampoo See Rx Instructions .Route .COMPLEX 03/12/24 12/10/24 12/08/24 History metoprolol tartrate 50 mg tablet 100 mg (2 x 50 mg) PO BID #240 tabs 05/28/24 12/10/24 12/10/24 Rx bumetanide 1 mg tablet See Rx Instructions .Route 06/15/24 12/10/24 12/10/24 Rx .COMPLEX #120 tabs acetaminophen 650 mg 650 mg PO Q12H 10/08/24 12/10/24 12/10/24 History tablet,extended release (Tylenol Arthritis Pain) tirzepatide 12.5 mg/0.5 mL 12.5 mg SUBCUT Q7D 10/08/24 12/10/24 12/08/24 History subcutaneous pen injector (Carlos) eplerenone 25 mg tablet 25 mg PO DAILY #90 tabs 10/21/24 12/10/24 12/10/24 Rx prednisone 10 mg tablet See Rx Instructions PO .COMPLEX 11/17/24 12/10/24 Unknown Rx PRN joint pain #30 tabs allopurinol 100 mg tablet 200 mg PO QPM 12/10/24 12/10/24 12/09/24 History ezetimibe 10 mg tablet 10 mg PO DAILY 12/10/24 12/10/24 12/10/24 History insulin glargine 100 unit/mL (3 60 unit SUBCUT DAILY 12/10/24 12/10/24 12/09/24 History mL) subcutaneous pen (Lantus Solostar U-100 Insulin) insulin glargine U-300 conc 300 60 unit SUBCUT QAM 12/10/24 12/10/24 Unknown History unit/mL (3 mL) subcutaneous pen (Toujeo Max U-300 SoloStar) insulin lispro 100 unit/mL 50 unit SUBCUT TID 12/10/24 12/10/24 12/10/24 History subcutaneous pen isosorbide mononitrate 30 mg 60 mg PO DAILY 12/10/24 12/10/24 12/10/24 History tablet,extended release 24 hr ketoconazole 2 % topical cream See Rx Instructions .Route 12/10/24 12/10/24 Unknown History .COMPLEX affected leflunomide 20 mg tablet 20 mg PO QAM 12/10/24 12/10/24 12/10/24 History rivaroxaban 20 mg tablet (Xarelto) 20 mg PO QAM 12/10/24 12/10/24 12/10/24 History verapamil 240 mg tablet,extended 240 mg PO QAM 12/10/24 12/10/24 12/10/24 History release Allergies Allergy/AdvReac Type Severity Reaction Status Date / Time empagliflozin (From Allergy Severe difficult Verified 12/10/24 09:08 Jardiance) breathing linaclotide (From Linzess) Allergy Unknown Hypertension; Verified 12/10/24 09:08 Afib metformin Allergy Unknown ADR-Diarrhe Verified 12/10/24 09:08 a naproxen Allergy Unknown Affects Verified 12/10/24 09:08 kidney fuctions Baujqib-AIX-SiK Reductase Allergy Unknown Severe Verified 12/10/24 09:08 Inhibitor (Xiydoge-Zvd-Kms Muscle Pain Reductase Inhibitor) Sulfa (Sulfonamide Allergy Unknown ADR-Itching Verified 12/10/24 09:08 Antibiotics) baclofen Allergy Affects Verified 12/10/24 09:08 kidney fuctions NSAIDS (Non-Steroidal Allergy Affects Verified 12/10/24 09:08 Anti-Inflamma Kidney functions tramadol AdvReac Intermediate aggression Verified 12/10/24 09:08 Current Medications Generic Name Dose Route Start Last Admin Trade Name Freq PRN Reason Stop Dose Admin Bumetanide 1 mg 12/10/24 14:00 12/10/24 14:09 Bumetanide 0.25 Mg/Ml Sdv 4 Ml IVP 1 mg Q12H NORA Administration PFSH Acute PFSH: Medical History (Updated 12/10/24 @ 12:08 by Qamar Morales DO) Dysphagia Blood transfusion declined because patient is Jain Chronic anticoagulation Melena Hypertrophy of uvula Diabetes type 2, uncontrolled COVID-19 COVID Dehydration Acute kidney injury superimposed on CKD Hypertrophy of uvula Retrosternal thyroid goiter Dyspnea LINDA on CPAP Ventral incisional hernia Substernal thyroid goiter Diverticulosis Rectal polyp External hemorrhoids with complication Rectal bleeding Morbid obesity with BMI of 60.0-69.9, adult Vitamin D deficiency Hyperlipidemia Anemia Morbid obesity Uncontrolled type 2 diabetes mellitus Diabetic neuropathy Stage 3 chronic kidney disease due to diabetes mellitus Neuropathy Rheumatoid arthritis In remission Carpal tunnel syndrome Osteoarthritis Gout CKD (chronic kidney disease) stage 3, GFR 30-59 ml/min Seronegative rheumatoid arthritis in remission Otalgia Chest pain Patient underwent coronary angiogram which was normal GERD (gastroesophageal reflux disease) Renal insufficiency Improved after IV fluid Diastolic heart failure Atrial fibrillation on anticoagulation Surgical History History of uvulectomy S/P skin cancer resection History of colonoscopy S/P appendectomy S/P thyroid surgery S/P tonsillectomy S/P hernia repair S/P trigger finger release S/P carpal tunnel release 2x left S/P cervical disc replacement History of esophagogastroduodenoscopy (EGD) Family History Father Cancer Prostate Hypertension Hypercholesterolemia Heart disease Mother Hypertension Hypercholesterolemia Anesthesia complication Daughter Anesthesia complication Denies family history of Bleeding disorder Social History Smoking and tobacco/nicotine status: never used tobacco/nicotine Alcohol intake: former Substance/Drug Use: never Lives independently: Yes Household members: spouse Marital status: Current occupational status: disabled Alexandra/Scientology: Jain Special alexandra needs: Yes Agree to transfusion: No Vitals/I&O/Wt Last Vital Signs Temp 97.0 F L 12/10/24 13:53 Pulse 74 12/10/24 13:53 Resp 20 H 12/10/24 13:53 BP 163/83 12/10/24 13:53 Pulse Ox 95 12/10/24 13:53 O2 Del Method Room Air 12/10/24 13:53 Weight last 48 hrs Weight 380 lb 8 oz Weight 380 lb Physical Exam Narrative: General: No apparent distress, obese HENMT: normoceophalic Neck: No carotid bruit bilaterally Muskuloskeletal: Full ROM Respiratory: Normal respiratory effort, clear to auscultation bilaterally throughout all lung pak, no use of accessory muscles Cardio: No JVD, regular rate, regular rhythm, S1 S2 normal, no murmurs, peripheral pulses 2+ radial palpated bilaterally Extremities: Full ROM, normal, normal capillary refill, no cyanosis, 2+ edema bilateral lower extremities Neuro: Alert and oriented x4, no focal motor deficits Psych: Affect normal, mental status grossly normal Skin: vericose veins bilateral lower extremities Data 12/10/24 09:54 12/10/24 09:54 A&P Assessment and plan 1. Atrial fibrillation: 2. Unstable angina pectoris: 3. Diastolic heart failure: 4. Hyperlipemia, mixed: Plan: Patient has typical chest pain. Troponins are negative. Chest pain resolving with nitro-bid. Would recommend continuing. Patient had Xarelto this moring. Recommend transitioning to a heparin drip in 12 hours tonight. BUmex 1 mg IVP q 12 with potassium for lower extremity edema and shortness of breath. Continue to monitor troponins and for worsening s/s of chest pain. Will obtain echo to evaluate LV function and for wall motion abnormalities. Further recommendations to follow evaluation by Dr. Armstrong. Thank you, Dr. Serna, for allowing us to care for this very pleasant 69 year old gentleman. PDMP PDMP Reviewed: Not Reviewed Consult Attestations Medical Necessity Statement: Deferred to primary. Coding Level of Care Code Acute Code for Chg Fwd Diagnoses Atrial fibrillation I48.91 Unstable angina pectoris I20.0 Diastolic heart failure I50.30 Hyperlipemia, mixed E78.2
[2024-12-10 14:56] LABS: Partial Thromboplastin Time 35.5 SECONDS (23.9-36.7)
[2024-12-10 15:25] LABS: Troponin 5 6HR 16.73 ng/L (0-15)
[2024-12-10 15:27] LABS: Troponin 5 6HR Delta -2.27 ng/L (0-12)
[2024-12-10] MEDS: perflutren protein-a microsphr 0.22 mg/mL SDV 3 mL IV (16:01)
--- NOTE | 2024-12-10 16:05 | ECG_ITS ---
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 Measurements Intervals [place] Rate: 73 P: 0 [place]: 0 QRS: -52 QRSD: 109 T: 65 QT: 394 QTc: 437 Interpretive Statements ATRIAL FIBRILLATION LEFT AXIS DEVIATION [QRS AXIS < -30] RIGHT BUNDLE BRANCH BLOCK [120+ ms QRS DURATION, UPRIGHT V1, 40+ ms S IN I/aVL/V4/V5/V6] POSSIBLE SEPTAL MYOCARDIAL INFARCTION , OF INDETERMINATE AGE [30 ms Q WAVE IN V1/V2] Compared to ECG 12/10/2024 12:05:10 Left-axis deviation now present Left anterior fascicular block no longer present Myocardial infarct finding still present Electronically Signed On 12-10-2024 22:51:26 CDT by Robb Banegas M.D. [email or web address]
--- NOTE | 2024-12-10 16:50 | PM.HP ---
Providers/Chief Complaint Admitting Physician: Tara Younger MD Primary Care Provider: Samantha Vinson DO Chief Complaint: chest pain History of Present Illness Mauro Solis is a 69 year old male with a PMH chronic iron deficiency anemia, h/o A fib, on anticogulation with Xarelto presenting today with few weeks of incraesing dyspnea, LE edema and orthopnea. He was at infusion center today for a follow up where he developed chest pain and was brought to the ER for further evaluation. He reports intermittent chest discomfort over the past few weeks which does not appear to have any aggravating or relieving factors. Today he is noted to have B/L LE edema and orthopnea. HE has been evaluated by cardiology and started on bumex iv and heparin drip while pending troponin trend. Ekg does not show any acute ST- T wave changes. Review of Systems General: Reports: 10 or more systems reviewed and unremarkable except in HPI and below Const: Denies: fever(s), chills or body aches Eyes: Denies: change in vision, blurry vision or photophobia ENMT: Reports: hoarseness; Denies: throat pain, enlarged tonsils, odynophagia or nasal congestion Card: Denies: chest pain, palpitations, irregular heart rhythm, edema, swelling of feet/ankles, lightheadedness, pre-syncope, dyspnea on exertion or orthopnea Resp: Denies: dyspnea, productive cough, non-productive cough, wheezing, stridor, pain on inspiration, change in phlegm color, hemoptysis or chest congestion GI: Denies: abdominal pain, nausea, vomiting, hematemesis, coffee ground emesis, dysphagia, heartburn, diarrhea, constipation, GI cramping, change in stool character, hematochezia or melena : Denies: flank pain, dysuria, urinary frequency, urinary urgency, urinary hesitancy or hematuria Musc: Denies: neck pain, back pain, extremity pain, joint swelling, joint warmth or deformity Neuro: Denies: headache(s), numbness in extremities, weakness in extremities, sensory changes, difficulty walking, frequent falls, dizziness, vertigo, behavioral changes, Slurred speech present or seizure-like activity Psych: Denies: anxiety, depression, suicidal ideation or homicidal ideation Endo: Denies: polyuria, polydipsia, tired all the time, cold intolerance or hot flashes Noah/Lymph: Denies: easy bruising or easy bleeding Medications/Allergies Home Medications ?Medication ?Instructions ?Recorded ?Confirmed ?Last Taken ?Type ergocalciferol (vitamin D2) 1,250 50,000 unit PO Q30D 05/22/19 12/10/24 12/09/24 History mcg (50,000 unit) capsule fenofibrate nanocrystallized 145 145 mg PO DAILY 05/22/19 12/10/24 12/10/24 History mg tablet diclofenac sodium 1 % topical gel 4 g topical QID PRN Pain, Mild 06/19/19 12/10/24 Unknown History blood-glucose meter (Accu-Chek #1 ea 01/21/20 12/10/24 Unknown Rx Guide Glucose Meter) Diabetic shoes with inserts #1 ea 02/04/20 12/10/24 Unknown Rx lancets (Accu-Chek Fastclix Lancet #200 ea 03/04/20 12/10/24 Unknown Rx Drum) Diabetic shoes with molded inserts #1 ea 09/14/20 12/10/24 Unknown Rx pen needle, diabetic 31 gauge x #100 ea 03/18/21 12/10/24 Unknown Rx 1/4 pen needle, diabetic 32 gauge x #100 ea 03/28/21 12/10/24 Unknown Rx 5/32 (BD Gabriella 2nd Gen Pen Needle) triamcinolone acetonide 0.1 % 1 applic topical BID PRN joint 04/11/21 12/10/24 03/01/23 History topical cream inflamation Diabetic shoes with 3 pairs of #1 ea 11/01/21 12/10/24 Unknown Rx inserts flash glucose scanning reader #1 ea 02/21/22 12/10/24 Unknown Rx (FreeStyle Huma 2 [place]) flash glucose sensor (FreeStyle #6 ea 02/21/22 12/10/24 Unknown Rx Huma 2 Sensor kit) nitroglycerin 0.4 mg sublingual 0.4 mg sublingual DIRECTED PRN 07/26/22 12/10/24 03/01/23 Rx tablet (Nitrostat) CHEST PAIN #25 tabs Diabetic shoes #1 ea 07/24/23 12/10/24 Unknown Rx acyclovir 5 % topical ointment 1 applic topical 6XD PRN fever 09/05/23 12/10/24 Unknown History blisters and rash areas magnesium chelate, malate 125 mg PO BID 09/05/23 12/10/24 12/10/24 History psyllium husk 0.52 gram capsule 0.52 g PO BID 09/05/23 12/10/24 12/10/24 History (Fiber (psyllium husk)) blood sugar diagnostic (Accu-Chek #300 ea 11/19/23 12/10/24 Unknown Rx Guide test strips) ketoconazole 2 % shampoo See Rx Instructions .Route .COMPLEX 03/12/24 12/10/24 12/08/24 History metoprolol tartrate 50 mg tablet 100 mg (2 x 50 mg) PO BID #240 tabs 05/28/24 12/10/24 12/10/24 Rx bumetanide 1 mg tablet See Rx Instructions .Route 06/15/24 12/10/24 12/10/24 Rx .COMPLEX #120 tabs acetaminophen 650 mg 650 mg PO Q12H 10/08/24 12/10/24 12/10/24 History tablet,extended release (Tylenol Arthritis Pain) tirzepatide 12.5 mg/0.5 mL 12.5 mg SUBCUT Q7D 10/08/24 12/10/24 12/08/24 History subcutaneous pen injector (Carlos) eplerenone 25 mg tablet 25 mg PO DAILY #90 tabs 10/21/24 12/10/24 12/10/24 Rx prednisone 10 mg tablet See Rx Instructions PO .COMPLEX 11/17/24 12/10/24 Unknown Rx PRN joint pain #30 tabs allopurinol 100 mg tablet 200 mg PO QPM 12/10/24 12/10/24 12/09/24 History ezetimibe 10 mg tablet 10 mg PO DAILY 12/10/24 12/10/24 12/10/24 History insulin glargine 100 unit/mL (3 60 unit SUBCUT DAILY 12/10/24 12/10/24 12/09/24 History mL) subcutaneous pen (Lantus Solostar U-100 Insulin) insulin glargine U-300 conc 300 60 unit SUBCUT QAM 12/10/24 12/10/24 Unknown History unit/mL (3 mL) subcutaneous pen (Toujeo Max U-300 SoloStar) insulin lispro 100 unit/mL 50 unit SUBCUT TID 12/10/24 12/10/24 12/10/24 History subcutaneous pen isosorbide mononitrate 30 mg 60 mg PO DAILY 12/10/24 12/10/24 12/10/24 History tablet,extended release 24 hr ketoconazole 2 % topical cream See Rx Instructions .Route 12/10/24 12/10/24 Unknown History .COMPLEX affected leflunomide 20 mg tablet 20 mg PO QAM 12/10/24 12/10/24 12/10/24 History rivaroxaban 20 mg tablet (Xarelto) 20 mg PO QAM 12/10/24 12/10/24 12/10/24 History verapamil 240 mg tablet,extended 240 mg PO QAM 12/10/24 12/10/24 12/10/24 History release Allergies Allergy/AdvReac Type Severity Reaction Status Date / Time empagliflozin (From Allergy Severe difficult Verified 12/10/24 09:08 Jardiance) breathing linaclotide (From Linzess) Allergy Unknown Hypertension; Verified 12/10/24 09:08 Afib metformin Allergy Unknown ADR-Diarrhe Verified 12/10/24 09:08 a naproxen Allergy Unknown Affects Verified 12/10/24 09:08 kidney fuctions Xqzheey-FJO-QcR Reductase Allergy Unknown Severe Verified 12/10/24 09:08 Inhibitor (Mxdsgkx-Res-Ubd Muscle Pain Reductase Inhibitor) Sulfa (Sulfonamide Allergy Unknown ADR-Itching Verified 12/10/24 09:08 Antibiotics) baclofen Allergy Affects Verified 12/10/24 09:08 kidney fuctions NSAIDS (Non-Steroidal Allergy Affects Verified 12/10/24 09:08 Anti-Inflamma Kidney functions tramadol AdvReac Intermediate aggression Verified 12/10/24 09:08 PFSH Acute PFSH: Medical History (Updated 12/10/24 @ 22:26 by Tara Younger MD) Dysphagia 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 Chronic anticoagulation Melena Hypertrophy of uvula Diabetes type 2, uncontrolled COVID-19 COVID Dehydration Acute kidney injury superimposed on CKD Hypertrophy of uvula Retrosternal thyroid goiter Dyspnea LINDA on CPAP Ventral incisional hernia Substernal thyroid goiter Diverticulosis Rectal polyp External hemorrhoids with complication Rectal bleeding Morbid obesity with BMI of 60.0-69.9, adult Vitamin D deficiency Hyperlipidemia Anemia Morbid obesity Uncontrolled type 2 diabetes mellitus Diabetic neuropathy Stage 3 chronic kidney disease due to diabetes mellitus Neuropathy Rheumatoid arthritis In remission Carpal tunnel syndrome Osteoarthritis Gout CKD (chronic kidney disease) stage 3, GFR 30-59 ml/min Seronegative rheumatoid arthritis in remission Otalgia Chest pain Patient underwent coronary angiogram which was normal GERD (gastroesophageal reflux disease) Renal insufficiency Improved after IV fluid Diastolic heart failure Atrial fibrillation on anticoagulation Surgical History History of uvulectomy S/P skin cancer resection History of colonoscopy S/P appendectomy S/P thyroid surgery S/P tonsillectomy S/P hernia repair S/P trigger finger release S/P carpal tunnel release 2x left S/P cervical disc replacement History of esophagogastroduodenoscopy (EGD) Family History Father Cancer Prostate Hypertension Hypercholesterolemia Heart disease Mother Hypertension Hypercholesterolemia Anesthesia complication Daughter Anesthesia complication Denies family history of Bleeding disorder Social History Smoking and tobacco/nicotine status: never used tobacco/nicotine Alcohol intake: former Substance/Drug Use: never Lives independently: Yes Household members: spouse Marital status: Current occupational status: disabled Alexandra/[employer]: Cheondoism Special alexandra needs: Yes Agree to transfusion: No Vitals/I&O/Wt Last Vital Signs Temp 97.0 F L 12/10/24 13:53 Pulse 74 12/10/24 13:53 Resp 20 H 12/10/24 13:53 BP 163/83 12/10/24 13:53 Pulse Ox 95 12/10/24 13:53 O2 Del Method Room Air 12/10/24 13:53 Weight last 48 hrs Weight 172.592 kg Weight 172.365 kg Physical Exam Narrative: General: No acute distress, AO x3 HEENT: PERRLA, pupils bilaterally equal and reactive, pallors not present Chest: Normal vesicular breath sounds, no added sounds, equal good air entry bilaterally CVS: S1-S2 regular, no murmurs, no tachycardia, no gallops, no rubs Abdomen: Soft, nontender, no organomegaly, bowel sounds present Neuro: No focal deficits, no facial deformity, AO x3, power 5/5 in all limbs EXT : B/L LE edema Data 12/10/24 09:54 12/10/24 09:54 Other data: Radiology Impressions Chest X-Ray 12/10/24 09:36 IMPRESSION: Stable findings. Carotid Doppler Study 12/10/24 17:24 IMPRESSION: No carotid arterial stenosis. REFERENCES: SRU CRITERIA. The degree of internal carotid artery stenosis is based on criteria defined by the Society of Radiologists in Ultrasound (SRU). Normal is no stenosis. Mild is less than 50% stenosis. Moderate is 50-69% stenosis. Severe is greater than 69% stenosis to near occlusion. Near occlusion is a markedly narrowed lumen. Total occlusion is no detectable patent lumen. Reference: Bobby eLe, et al. Carotid Artery Stenosis: Bernal-Scale and Doppler US Diagnosis-Society of Radiologists in Ultrasound Consensus Conference. Radiology 2003; 229:340-346. Laboratory Results WBC 9.18 10^3/uL (3.29-11.43) 12/10/24 09:54 RBC 5.18 10^6/uL (3.85-5.65) 12/10/24 09:54 Hgb 14.40 g/dL (11.27-16.99) 12/10/24 09:54 Hct 44.7 % (37-53) 12/10/24 09:54 MCV 86.3 fl (82-101) 12/10/24 09:54 MCH 27.8 pg (27-33) 12/10/24 09:54 MCHC 32.2 g/dL (30-55) 12/10/24 09:54 RDW 14.1 % (12.1-15.1) 12/10/24 09:54 Plt Count 219 10^3/cmm (157-399) 12/10/24 09:54 MPV 9.9 fL (7.4-10.4) 12/10/24 09:54 Neut % (Auto) 74.1 % 12/10/24 09:54 Lymph % (Auto) 15.9 % 12/10/24 09:54 Daniels % (Auto) 7.6 % 12/10/24 09:54 Eos % (Auto) 1.2 % 12/10/24 09:54 Baso % (Auto) 0.9 % 12/10/24 09:54 Neut # (Auto) 6.80 10^3/uL (1.8-7.7) 12/10/24 09:54 Lymph # (Auto) 1.5 10^3/uL (0.8-4.8) 12/10/24 09:54 Daniels # (Auto) 0.7 10^3/uL (0.2-0.9) 12/10/24 09:54 Eos # (Auto) 0.1 10^3/uL (0.0-0.8) 12/10/24 09:54 Baso # (Auto) 0.1 10^3/uL (0.0-0.1) 12/10/24 09:54 Nucleated RBC % (auto) 0 % 12/10/24 09:54 Nucleated RBCs # 0.0 /100WBC 12/10/24 09:54 APTT 35.5 SECONDS (23.9-36.7) 12/10/24 14:39 Sodium 143 mmol/L (136-145) 12/10/24 09:54 Potassium 4.1 mmol/L (3.5-5.1) 12/10/24 09:54 Chloride 102 mmol/L (98-107) 12/10/24 09:54 Carbon Dioxide 29 mmol/L (22-29) 12/10/24 09:54 Anion Gap 16.1 (5-19) 12/10/24 09:54 BUN 18 mg/dL (8-23) 12/10/24 09:54 Creatinine 1.1 mg/dL (0.7-1.2) 12/10/24 09:54 GFR Calculation 66.4 mL/min (90-130) L 12/10/24 09:54 Glucose 120 mg/dL (65-115) H 12/10/24 09:54 POC Glucose 162 mg/dL (70-110) H 12/10/24 20:21 Calculated Osmolality 299 mOsm/kg (285-295) H 12/10/24 09:54 Calcium 9.0 mg/dL (8.5-10.5) 12/10/24 09:54 Total Bilirubin 0.4 mg/dL (0.15-1.2) 12/10/24 09:54 AST 37 U/L (0-40) 12/10/24 09:54 ALT 29 U/L (0-41) 12/10/24 09:54 Alkaline Phosphatase 63 U/L (40-130) 12/10/24 09:54 Troponin T Baseline 19 ng/L (0-15) H 12/10/24 09:54 Troponin T 120 Minute 18.09 ng/L (0-15) H 12/10/24 11:54 Delta Troponin T -0.91 ABS# (0-10) L 12/10/24 11:54 Troponin T Hi Sens 6Hr 16.73 ng/L (0-15) H 12/10/24 15:00 Troponin T Hi Sens 6Hr Delta -2.27 ng/L (0-12) L 12/10/24 15:00 Total Protein 6.6 g/dL (6.6-8.7) 12/10/24 09:54 Albumin 4.3 g/dL (3.5-5.2) 12/10/24 09:54 Globulin 2.3 g/dL (1.3-4.6) 12/10/24 09:54 A&P Assessment and plan 1. Diastolic heart failure: Patient presneting today with several weeks of increasing shortness of breath, orthopnea and intermittent chest discomfort Rales on exam B/L, B/L LE edema noted EKG with A fib, rate controlled Trop series 16--18--19, no significant delta at 2 hrs of 6 hrs Started on Bumex 1mg iv every 12 hrs monitor I/O and renal function with initiation of diuresis Echocardiogram taken and pending likely acute on chronic diatsolic HF 2. Atrial fibrillation: currently rate controlled Chronically on Xarelto Currently xarelto on hold and he is on heparin drip per cardiology recommendations. If remains chest pain free, given no concerning EKG changes and no significant delta, may be able to discontinue heparin drip if echo does not show new ischemic changes 3. Chest pain, unspecified type: Atypical chest pain EKG without acute ST-T changes Trop series without significant elevation or delta suspect chest discomfort to be related to acute on chronic CHF exacerbation 4. Anemia: chronic, currently HB is well maintained 5. Seronegative rheumatoid arthritis: continue leflunomide Plan: dvt ppx: heparin drip Full code PDMP PDMP Reviewed: Not Reviewed Attestations Medical Necessity Statement*: > 2 midnight admission is anticipated for iv diuresis, CHF exacerbation Coding Level of Care Code Acute Code for Chg Fwd High MDM includes number and complexity of problems actively addressed during encounter, amount and/or complexity of data reviewed/ordered and described risk of complication, morbidity or mortality of management as documented Diagnoses Diastolic heart failure I50.30 Atrial fibrillation I48.91 Chest pain, unspecified type R07.9 Anemia D64.9 Seronegative rheumatoid arthritis M06.00
--- NOTE | 2024-12-10 17:24 | USR_ITS ---
PROCEDURE INFORMATION: Exam: US Duplex Bilateral Extracranial Arteries; Complete; Carotid Arteries Exam date and time: 12/10/2024 5:53 PM Age: 69 years old Clinical indication: Condition or disease; Other: Carotid stenosis TECHNIQUE: Imaging protocol: Real-time duplex ultrasound scan of the bilateral extracranial arteries combining bernal scale, color Doppler and spectral waveform analysis with image documentation. Complete exam. Exam focused on the carotid arteries. COMPARISON: [place] thyroid [id number] 03/07/2023 1:55 PM FINDINGS: Right common carotid artery: Unremarkable. No occlusion or stenosis. Waveforms are normal. Right internal carotid artery: Unremarkable. No occlusion or stenosis. Waveforms are normal. Right ICA/CCA ratio: Within normal limits. Right external carotid artery: No stenosis in the origin. Right vertebral artery: Unremarkable. Antegrade flow. Left common carotid artery: Unremarkable. No occlusion or stenosis. Waveforms are normal. Left internal carotid artery: Unremarkable. No occlusion or stenosis. Waveforms are normal. Left ICA/CCA ratio: Within normal limits. Left external carotid artery: No stenosis in the origin. Left vertebral artery: Unremarkable. Antegrade flow. US/CV carotid duplex BI* [id number] IMPRESSION: No carotid arterial stenosis. REFERENCES: SRU CRITERIA. The degree of internal carotid artery stenosis is based on criteria defined by the Society of Radiologists in Ultrasound (SRU). Normal is no stenosis. Mild is less than 50% stenosis. Moderate is 50-69% stenosis. Severe is greater than 69% stenosis to near occlusion. Near occlusion is a markedly narrowed lumen. Total occlusion is no detectable patent lumen. Reference: Bobby Lee, et al. Carotid Artery Stenosis: Bernal-Scale and Doppler US Diagnosis-Society of Radiologists in Ultrasound Consensus Conference. Radiology 2003; 229:340-346.
[2024-12-10] MEDS: heparin 5,000 unit/mL INJ 1 mL IVP (21:15)
[2024-12-10] MEDS: heparin drip 25,000 UNIT/500 ML PREMIX 49 UNIT IV (21:21)
[2024-12-11] VITALS: BP 126/70; PULSE 87; RESP 20; O2SAT 92
[2024-12-11 03:20] LABS: Hematocrit 41.2 % (37-53); Hemoglobin 13.00 g/dL (11.27-16.99); Mean Corpuscular HGB Conc 31.6 g/dL (30-55); Mean Corpuscular Hemoglobin 27.1 pg (27-33); Mean Corpuscular Volume 86.0 fl (82-101); Nucleated Red Blood Cells % 0 %; Platelet Count 191 10^3/cmm (157-399); Red Blood Count 4.79 10^6/uL (3.85-5.65); White Blood Count 7.76 10^3/uL (3.29-11.43)
[2024-12-11 03:52] LABS: Alanine Aminotransferase 27 U/L (0-41); Albumin Level 3.9 g/dL (3.5-5.2); Alkaline Phosphatase 59 U/L (40-130); Anion Gap 13.9 (5-19); Aspartate Amino Transferase 33 U/L (0-40); Blood Urea Nitrogen 18 mg/dL (8-23); Calcium 9.1 mg/dL (8.5-10.5); Carbon Dioxide 30 mmol/L (22-29); Chloride 101 mmol/L (98-107); Creatinine Clr Calc Pharmacy 85.5920; Globulin 2.6 g/dL (1.3-4.6); Glucose 137 mg/dL (65-115); Osmolality Calculated 296 mOsm/kg (285-295); Potassium 3.9 mmol/L (3.5-5.1); Sodium 141 mmol/L (136-145); Total Protein 6.5 g/dL (6.6-8.7)
[2024-12-11 04:00] VITALS: BP 146/91; PULSE 95; RESP 20; TEMP 37.3; O2SAT 92
[2024-12-11] MEDS: verapamil ER 240 mg Tablet PO (06:09)
[2024-12-11 07:10] VITALS: BP 153/88; PULSE 91; RESP 10; TEMP 36.6; O2SAT 94
[2024-12-11 08:00] VITALS: PULSE 69; O2SAT 94
[2024-12-11] MEDS: bumetanide 0.25 mg/mL SDV 4 mL 1 MG IVP (08:01)
--- NOTE | 2024-12-11 11:20 | P.PN_ITS ---
<Statement entered by Orlando Armstrong MD - 12/19/24 15:48> Patient was evaluated and cared for in conjunction with an advanced practice practitioner. I personally examined the patient and reviewed the chart and all pertinent data including imaging, telemetry, and laboratory results. I discussed the patient in detail with the advanced practice practitioner. Please see their note for complete H&P testing result and agreed upon plan of care for the patient. Subjective 2 Subjective: Patient doing well. Still has some orthopnea but overall shortness of breath improved. Has been -1530 over 24 hours. Creatinine slightly elevated at 1.3. Overall doing well without complaints. Electrolytes are stable. Vitals/I&O/Wt Last Vital Signs Temp 97.8 F 12/11/24 07:10 Pulse 91 12/11/24 07:10 Resp 10 L 12/11/24 07:10 BP 153/88 12/11/24 07:10 Pulse Ox 94 12/11/24 07:10 O2 Del Method Nasal Cannula 12/11/24 07:10 12/10/24 12/11/24 12/11/24 22:59 06:59 14:59 Intake Total 69.417 / 69.417 Output Total 500 / 500 1100 / 1100 Balance -430.583 / -430.583 -1100 / -1100 Weight last 48 hrs Weight 380 lb 8 oz Weight 380 lb Physical Exam 2 Narrative: General: No apparent distress, obese HENMT: normoceophalic Neck: No carotid bruit bilaterally Muskuloskeletal: Full ROM Respiratory: Normal respiratory effort, clear to auscultation bilaterally throughout all lung pak, no use of accessory muscles Cardio: No JVD, regular rate, regular rhythm, S1 S2 normal, no murmurs, peripheral pulses 2+ radial palpated bilaterally Extremities: Full ROM, normal, normal capillary refill, no cyanosis, 2+ edema bilateral lower extremities Neuro: Alert and oriented x4, no focal motor deficits Psych: Affect normal, mental status grossly normal Skin: vericose veins bilateral lower extremities Data 12/11/24 02:58 12/11/24 02:58 A&P Assessment and plan 1. Atrial fibrillation: 2. Unstable angina pectoris: 3. Diastolic heart failure: 4. Hyperlipemia, mixed: Plan: Patient has typical chest pain. Troponins are negative. Has had some mild chest discomfort when he lies flat, consistent with fluid overload. EF showed normal with no wall motion abnormalities. At this time, we recommend changing to lasix 60 BID, continue potassium. Continue medical management with diuresis at this time. Closely monitor I&O as well as creatinine. PDMP PDMP Reviewed: Not Reviewed Attestations 2 Medical Necessity Statement*: Deferred to primary. Coding Level of Care Code Acute Code for Chg Fwd Diagnoses Atrial fibrillation I48.91 Unstable angina pectoris I20.0 Diastolic heart failure I50.30 Hyperlipemia, mixed E78.2
[2024-12-11 11:46] VITALS: BP 179/94; PULSE 69; RESP 23; TEMP 36.5; O2SAT 94
[2024-12-11] MEDS: FUROsemide 10 mg/mL SDV 10mL 60 MG IVP (13:55)
[2024-12-11] MEDS: diclofenac 1% Topical Gel 100 gm 2 APPLIC TOPICAL (15:49)
--- NOTE | 2024-12-11 16:15 | P.PN_ITS ---
Subjective 2 Subjective: No new complaints today. Still having a hard time breathing when trying to lay on the bed. He is net negative by 1.1 L so far. Kidney function is stable. Medications: Reviewed: Yes Vitals/I&O/Wt Last Vital Signs Temp 97.7 F 12/11/24 11:46 Pulse 69 12/11/24 11:46 Resp 23 H 12/11/24 11:46 BP 179/94 12/11/24 11:46 Pulse Ox 94 12/11/24 11:46 O2 Del Method Nasal Cannula 12/11/24 08:00 12/11/24 12/11/24 12/11/24 06:59 14:59 22:59 Intake Total 360 / 360 Output Total 1100 / 1100 Balance -740 / -740 Weight last 48 hrs Weight 172.592 kg Weight 172.365 kg Physical Exam 2 Narrative: General: No acute distress, AO x3 HEENT: PERRLA, pupils bilaterally equal and reactive, pallors not present Chest: Normal vesicular breath sounds, no added sounds, equal good air entry bilaterally CVS: S1-S2 regular, no murmurs, no tachycardia, no gallops, no rubs Abdomen: Soft, nontender, no organomegaly, bowel sounds present Neuro: No focal deficits, no facial deformity, AO x3, power 5/5 in all limbs EXT : B/L LE edema Data 12/11/24 02:58 12/11/24 02:58 A&P Assessment and plan 1. Chronic diastolic heart failure: Patient presneting today with several weeks of increasing shortness of breath, orthopnea and intermittent chest discomfort Rales on exam B/L, B/L LE edema noted EKG with A fib, rate controlled Trop series 16--18--19, no significant delta at 2 hrs of 6 hrs Started on Bumex 1mg iv every 12 hrs monitor I/O and renal function with initiation of diuresis Echocardiogram taken and pending likely acute on chronic diatsolic HF 2. Other persistent atrial fibrillation: currently rate controlled Chronically on Xarelto Currently xarelto on hold and he is on heparin drip per cardiology recommendations. If remains chest pain free, given no concerning EKG changes and no significant delta, may be able to discontinue heparin drip if echo does not show new ischemic changes 3. Chest pain, unspecified type: Atypical chest pain EKG without acute ST-T changes Trop series without significant elevation or delta suspect chest discomfort to be related to acute on chronic CHF exacerbation 4. Anemia: chronic, currently HB is well maintained 5. Seronegative rheumatoid arthritis: continue leflunomide Plan: dvt ppx: heparin drip Full code December 11, 2024 Net -1.1 L. Still having significant lower extremity edema. Unable to lay flat. Bumex 1 mg IV every 12 hours has been changed to Lasix 60 mg IV every 12 hours per cardiology recommendations today. Metolazone 2.5 mg p.o. twice daily has been additionally added. Continue IV diuresis. Monitor JOEY and renal function. PDMP PDMP Reviewed: Not Reviewed Attestations 2 Medical Necessity Statement*: Ongoing need for IV diuresis, need to monitor kidney function. Coding Level of Care Code Acute Code for Chg Fwd Diagnoses Chronic diastolic heart failure I50.30 Other persistent atrial fibrillation I48.20 Atrial fibrillation type: unspecified chronic Chest pain, unspecified type R07.9 Chest pain type: unspecified Anemia D64.9 Seronegative rheumatoid arthritis M06.00
[2024-12-11 19:22] VITALS: BP 157/98; PULSE 88; RESP 20; TEMP 37.2; O2SAT 94
[2024-12-12] VITALS (10 sets, daily range): BP systolic 120–169; BP diastolic 78–101; PULSE 65–106; RESP 12–37; TEMP 36.6–37.2; O2SAT 90–94
[2024-12-12] MEDS: FUROsemide 10 mg/mL SDV 10mL 60 MG IVP (02:38)
[2024-12-12 05:20] LABS: Hematocrit 45.3 % (37-53); Hemoglobin 14.50 g/dL (11.27-16.99); Mean Corpuscular HGB Conc 32.0 g/dL (30-55); Mean Corpuscular Hemoglobin 27.2 pg (27-33); Mean Corpuscular Volume 84.8 fl (82-101); Nucleated Red Blood Cells % 0 %; Platelet Count 198 10^3/cmm (157-399); Red Blood Count 5.34 10^6/uL (3.85-5.65); White Blood Count 8.60 10^3/uL (3.29-11.43)
[2024-12-12 05:40] LABS: Alanine Aminotransferase 28 U/L (0-41); Albumin Level 4.2 g/dL (3.5-5.2); Alkaline Phosphatase 68 U/L (40-130); Anion Gap 16.7 (5-19); Aspartate Amino Transferase 31 U/L (0-40); Blood Urea Nitrogen 20 mg/dL (8-23); Calcium 10.0 mg/dL (8.5-10.5); Carbon Dioxide 32 mmol/L (22-29); Chloride 94 mmol/L (98-107); Creatinine Clr Calc Pharmacy 74.1201; Globulin 3.2 g/dL (1.3-4.6); Glucose 199 mg/dL (65-115); Osmolality Calculated 296 mOsm/kg (285-295); Potassium 3.7 mmol/L (3.5-5.1); Sodium 139 mmol/L (136-145); Total Protein 7.4 g/dL (6.6-8.7)
[2024-12-12] MEDS: verapamil ER 240 mg Tablet PO (06:42)
[2024-12-12] MEDS: morphine 4 mg/mL SDV 1 mL IVP (07:41)
--- NOTE | 2024-12-12 07:51 | CT_ITS ---
WS: [id number] CT HEAD NONCONTRAST HISTORY: right arm pain/numb-acute TECHNIQUE: Contiguous axial imaging performed through the brain. Bone and soft tissue windows. Sagittal and coronal reformats reviewed. All CT scans at [facility] use at least one of these dose optimization techniques: automated exposure control; mA and/or kV adjustment per patient size (includes targeted exams where dose is matched to clinical indication); or iterative reconstruction. DLP: 1113.98 mGy.cm COMPARISON: 10/12/2022 No acute intracranial hemorrhage, midline shift or mass effect. Very mild atrophy and small vessel disease. No prior large territory infarct. Ventricles: Normal size with no hydrocephalus. No inferior displacement of the cerebellar tonsils. Paranasal sinuses: Small mucous retention cyst in the LEFT maxillary sinus. Mastoid air cells: Well pneumatized. Calvarium and scalp: Skull is intact with no soft tissue edema or swelling. CT/CT head wo con* [id number] IMPRESSION: 1. No acute intracranial hemorrhage or edema. 2. No sulcal effacement or acute infarct identified. 3. Very mild small vessel disease and atrophy. First attempt at contacting Tara Younger MD at 12/12/2024 8:16 AM. Unsuccessful . No return call from Tara Younegr MD at 12/12/2024 8:32 AM. Unable to communicat e stroke head CT report to Dr. Younger at this time.
--- NOTE | 2024-12-12 08:03 | CT_ITS ---
WS: [id number] CT ANGIOGRAM CEREBRAL AND CAROTID ARTERIES HISTORY: pain and numbness right arm/hand TECHNIQUE: CT angiogram is performed of the carotid and cerebral arteries. During arterial injection imaging is obtained from the skull vertex to the aortic arch in 1.25 mm imaging. Coronal and sagittal reformats are submitted. Additional multi planar reformats of the carotid and cerebral arteries are submitted, MIP imaging also reviewed. NASCET criteria utilized. All CT scans at [facility] use at least one of these dose optimization techniques: automated exposure control; mA and/or kV adjustment per patient size (includes targeted exams where dose is matched to clinical indication); or iterative reconstruction. CONTRAST: Omnipaque 350; 100 mL IV. DLP: 616.87 mGy.cm COMPARISON: None available. Carotid Angiogram: Right carotid: Common carotid artery: Normal arises from the innominate artery. There is swallowing artifact in the middle of the CT examination distorting the artery. Internal carotid artery: No plaque or stenosis. External carotid artery: Patent. Left carotid: Common carotid artery: Arises normally from the aorta. No significant plaque or stenosis. Internal carotid artery: No plaque or stenosis. External carotid artery: Patent. Right vertebral artery: Patent. There is motion artifact causing irregularity within the artery. Left vertebral artery: Intact. Motion artifact throughout. Subclavian arteries: No stenosis or significant abnormality. Upper thorax: LEFT apical granuloma. Mild atherosclerosis aorta. Small mediastinal and hilar lymph nodes. Distortion of the central airway through the tongue base and the larynx secondary to breathing motion artifact. Thyroid gland: Motion artifact. Osseous structures: Anterior C4-5 cervical fusion with disc spacer. CEREBRAL ANGIOGRAM: Intracranial vertebral arteries: Normal with no significant atherosclerosis. Basilar artery: No significant stenosis or occlusion. No aneurysm. Intracranial Internal carotid arteries: Patent with mild calcified plaque. Middle cerebral arteries: Normal. Anterior cerebral arteries and ACOM: Normal. Posterior cerebral arteries and PCOM's: Very small caliber LEFT posterior cerebral artery, diffuse. Complete occlusion versus very high-grade stenosis involving the LEFT P2, P3 segment. There is reconstitution of the more distal P4 segment. The P4 segment remains very small caliber. Very small caliber hypoplastic RIGHT posterior communicating artery. The LEFT is normal. Dural venous sinuses are normally enhancing. CT/CT angio headneck* [id number] IMPRESSION: 1. No high-grade cervical carotid artery stenosis. 2. Swallowing motion artifact causing significant distortion of the soft tissu es to the neck and larynx. 3. Very high-grade stenosis of versus occlusion involving the LEFT posterior c erebral artery, P2 and P3 segments. P4 segment is enhancing but very small benjamin shira. 4. patent distal vertebral arteries. Have attempted to contact Dr. Younger with the report of the head CT and have not received a call back at this time, at 12/12/2024 8:31 AM.
[2024-12-12] MEDS: iohexol 350 mg/mL 500 mL Btl (per mL) IV (08:07)
--- NOTE | 2024-12-12 08:41 | PC.NURSE ---
Addendum entered by Kori Lazaro 12/12/24 08:44: Dysphagia screening performed at 0827 on 12/12 Original Note: optometric coordinator performed dysphagia screening with primary RN at bedside (patient sitting in chair in room, able to stand and pivot during CT), patient is alert and oriented, able to sit independently at 90 degrees, has facial and palatable symmetry, NIHSS score for me was a 0. Gave patient a drink of water and patient did not cough or choke. Patient stated his swallow feels normal to him.
--- NOTE | 2024-12-12 09:17 | PM.CCNAC ---
Critical Care Event Note The high probability of a clinically significant, sudden or life threatening deterioration of the patient's [] system(s) required my full and direct attention, intervention and personal management. The critical care time is as shown. This time is in addition to time spent performing any reported procedures but includes the following: [x] Data and vital sign review and interpretation [x] Patient assessment, examination and intervention [x] Documentation [x] Medication orders and management Critical Care Time Code activated: Yes (Stroke code) Critical Care Time (min): 40 Additional information about critical care time: Patient's nurse called this morning to inform that patient did complain of acute onset pain over the right upper extremity followed shortly afterwards by numbness affecting the right arm particularly centered around his hand and fingers. The pain subsided but the numbness did not. Stroke code was called and patient underwent a CT head and a CTA of the head and neck. NIH stroke scale 0 by the time I evaluated the patient during CT scan. CT head did not reveal any acute abnormalities. 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 Findings were discussed with neurology the area seen on the CTA does not coincide with patient's symptoms. Likely that these are incidental chronic findings. Aspirin 81 mg was however started given the chronicity. Xarelto has been continued. Patient has adequate pulses bilaterally. He has good right radial and ulnar circulation. Capillary refill is normal. Arterial occlusion is considered less likely to be the cause of his pain. Since he is on Xarelto 20 mg daily, PE is considered unlikely. Patient does not have any history of trauma at the right arm. No thrombophlebitis is noted. Suspect that his right arm numbness and weakness may be related to known history of cervical spine disease for which he has undergone surgery at the C4-C5 level remotely. Visualized C spine on head imaging reveals some degree of stenosis and possibly an elarged disc. Dedicated C spine imaging will be better to visualize per discussion with radiology Will add tizanidine 4 mg 3 times daily as needed and also apply lidocaine patch over the C-spine and assess for improvement in pain. Appreciate neurology consult. Coding Level of Care Code Acute Code for Marcelle Bang
--- NOTE | 2024-12-12 09:18 | PM.CONSULT ---
Providers/Reason For Consult Consulting Physician/Specialty*: Martínez Orosco MD neurology and epilepsy Reason for Consult*: Stroke alert cardiac stepdown unit room 105 Attending Physician: Tara Younger MD Primary Care Provider: Samantha Vinson DO History of Present Illness History of Present Illness Mauro Solis is a 69 year old male with a history of atrial fibrillation treated with Xarelto, seronegative rheumatoid arthritis, diabetes mellitus, insulin requiring, thyroid nodule status post surgery, cervical disc fusion, mixed hyperlipidemia, gout, and obesity. On 12/12/2024 the patient stated that he was sitting in the chair and was on the phone speaking with a family member and experienced pain in the right shoulder with radiation to the right hand followed by numbness in the same area. There was no associated facial numbness, headaches, weakness, or speech difficulty or visual difficulty. Stroke alert was initiated at 7:56 AM. Clinically the patient's symptoms do not correlate with TIA or stroke and since the patient is on Xarelto, he was not a candidate for intravenous thrombolytics and no intravenous thrombolytics were administered. NIH stroke score =1 ( secondary to complaints of right forearm and hand numbness) Point of contact glucose Accu-Chek [address] thrombolytic head CT 12/12/2024 revealed no acute findings CT angiogram of the head and neck 12/12/2024 IMPRESSION: 1. No high-grade cervical carotid artery stenosis. 2. Swallowing motion artifact causing significant distortion of the soft tissues to the neck and larynx. 3. Very high-grade stenosis of versus occlusion involving the LEFT posterior cerebral artery, P2 and P3 segments. P4 segment is enhancing but very small caliber. 4. patent distal vertebral arteries. The patient was in no acute distress at this time. Drug allergies: Jardiance which resulted in difficulty breathing Linzess which resulted in hypertension and atrial fibrillation Metformin which resulted in diarrhea Naproxen which resulted in kidney function issues Statins which resulted in severe muscle pain Sulfonamide antibiotics which resulted in itching Baclofen which affected kidney functions Nonsteroidal anti-inflammatory medications which affected kidney functions Tramadol which resulted in aggression Current medications: Xarelto 20 mg p.o. daily for atrial fibrillation Tirzepatide 12.5 mg subcutaneously every 7 days Verapamil 200 mg p.o. every morning Prednisone 10 mg tablets to take as instructed for joint pain Sublingual nitroglycerin 0.4 mg subcu lingually as instructed for chest pain Metoprolol 100 mg p.o. twice daily Magnesium chelate malate 125 mg p.o. twice daily Leflunomide 20 mg p.o. daily Ketoconazole to take as instructed Isosorbide mononitrate 60 mg p.o. daily Insulin lispro 50 units subcutaneously 3 times daily Insulin glargine 60 units subcutaneously every morning Fenofibrate 145 mg p.o. daily Ezetimide 10 mg p.o. daily Vitamin D2 50,000 international units p.o. every 30 days Eplerenone 25 mg p.o. daily Diclofenac sodium 4 g topically 4 times daily as needed pain Allopurinol 200 mg p.o. daily Acyclovir 5% topical ointment to be applied topically 6 times a day as needed for fever blisters and rash Tylenol 650 mg p.o. every 12 hours Past medical history: Atrial fibrillation treated with Xarelto Cervical disc surgery Thyroid nodule surgery Insulin requiring diabetes mellitus Obesity Seronegative rheumatoid arthritis Gout Chest pain Chronic renal disease, stage III Obstructive sleep apnea on CPAP Temporomandibular joint disorder Anemia Mixed hyperlipidemia Blood transfusion declined because patient is Taoist Habits: None Family history: Father Cancer Prostate Hypertension Hypercholesterolemia Heart disease Mother Hypertension Hypercholesterolemia Anesthesia complication Daughter Anesthesia complication Denies family history of Bleeding disorder Review of Systems General: Reports: 10 or more systems reviewed and unremarkable except in HPI and below Medications/Allergies Home Medications ?Medication ?Instructions ?Recorded ?Confirmed ?Last Taken ?Type ergocalciferol (vitamin D2) 1,250 50,000 unit PO Q30D 05/22/19 12/10/24 12/09/24 History mcg (50,000 unit) capsule fenofibrate nanocrystallized 145 145 mg PO DAILY 05/22/19 12/10/24 12/10/24 History mg tablet diclofenac sodium 1 % topical gel 4 g topical QID PRN Pain, Mild 06/19/19 12/10/24 Unknown History blood-glucose meter (Accu-Chek #1 ea 01/21/20 12/10/24 Unknown Rx Guide Glucose Meter) Diabetic shoes with inserts #1 ea 02/04/20 12/10/24 Unknown Rx lancets (Accu-Chek Fastclix Lancet #200 ea 03/04/20 12/10/24 Unknown Rx Drum) Diabetic shoes with molded inserts #1 ea 09/14/20 12/10/24 Unknown Rx pen needle, diabetic 31 gauge x #100 ea 03/18/21 12/10/24 Unknown Rx 1/4 pen needle, diabetic 32 gauge x #100 ea 03/28/21 12/10/24 Unknown Rx 5/32 (BD Gabriella 2nd Gen Pen Needle) triamcinolone acetonide 0.1 % 1 applic topical BID PRN joint 04/11/21 12/10/24 03/01/23 History topical cream inflamation Diabetic shoes with 3 pairs of #1 ea 11/01/21 12/10/24 Unknown Rx inserts flash glucose scanning reader #1 ea 02/21/22 12/10/24 Unknown Rx (FreeStyle Huma 2 [place]) flash glucose sensor (FreeStyle #6 ea 02/21/22 12/10/24 Unknown Rx Huma 2 Sensor kit) nitroglycerin 0.4 mg sublingual 0.4 mg sublingual DIRECTED PRN 07/26/22 12/10/24 03/01/23 Rx tablet (Nitrostat) CHEST PAIN #25 tabs Diabetic shoes #1 ea 07/24/23 12/10/24 Unknown Rx acyclovir 5 % topical ointment 1 applic topical 6XD PRN fever 09/05/23 12/10/24 Unknown History blisters and rash areas magnesium chelate, malate 125 mg PO BID 09/05/23 12/10/24 12/10/24 History psyllium husk 0.52 gram capsule 0.52 g PO BID 09/05/23 12/10/24 12/10/24 History (Fiber (psyllium husk)) blood sugar diagnostic (Accu-Chek #300 ea 11/19/23 12/10/24 Unknown Rx Guide test strips) ketoconazole 2 % shampoo See Rx Instructions .Route .COMPLEX 03/12/24 12/10/24 12/08/24 History metoprolol tartrate 50 mg tablet 100 mg (2 x 50 mg) PO BID #240 tabs 05/28/24 12/10/24 12/10/24 Rx bumetanide 1 mg tablet See Rx Instructions .Route 06/15/24 12/10/24 12/10/24 Rx .COMPLEX #120 tabs acetaminophen 650 mg 650 mg PO Q12H 10/08/24 12/10/24 12/10/24 History tablet,extended release (Tylenol Arthritis Pain) tirzepatide 12.5 mg/0.5 mL 12.5 mg SUBCUT Q7D 10/08/24 12/10/24 12/08/24 History subcutaneous pen injector (Carlos) eplerenone 25 mg tablet 25 mg PO DAILY #90 tabs 10/21/24 12/10/24 12/10/24 Rx prednisone 10 mg tablet See Rx Instructions PO .COMPLEX 11/17/24 12/10/24 Unknown Rx PRN joint pain #30 tabs allopurinol 100 mg tablet 200 mg PO QPM 12/10/24 12/10/24 12/09/24 History ezetimibe 10 mg tablet 10 mg PO DAILY 12/10/24 12/10/24 12/10/24 History insulin glargine 100 unit/mL (3 60 unit SUBCUT DAILY 12/10/24 12/10/24 12/09/24 History mL) subcutaneous pen (Lantus Solostar U-100 Insulin) insulin glargine U-300 conc 300 60 unit SUBCUT QAM 12/10/24 12/10/24 Unknown History unit/mL (3 mL) subcutaneous pen (Toujeo Max U-300 SoloStar) insulin lispro 100 unit/mL 50 unit SUBCUT TID 12/10/24 12/10/24 12/10/24 History subcutaneous pen isosorbide mononitrate 30 mg 60 mg PO DAILY 12/10/24 12/10/24 12/10/24 History tablet,extended release 24 hr ketoconazole 2 % topical cream See Rx Instructions .Route 12/10/24 12/10/24 Unknown History .COMPLEX affected leflunomide 20 mg tablet 20 mg PO QAM 12/10/24 12/10/24 12/10/24 History rivaroxaban 20 mg tablet (Xarelto) 20 mg PO QAM 12/10/24 12/10/24 12/10/24 History verapamil 240 mg tablet,extended 240 mg PO QAM 12/10/24 12/10/24 12/10/24 History release Allergies Allergy/AdvReac Type Severity Reaction Status Date / Time empagliflozin (From Allergy Severe difficult Verified 12/10/24 09:08 Jardiance) breathing linaclotide (From Linzess) Allergy Unknown Hypertension; Verified 12/10/24 09:08 Afib metformin Allergy Unknown ADR-Diarrhe Verified 12/10/24 09:08 a naproxen Allergy Unknown Affects Verified 12/10/24 09:08 kidney fuctions [id number] Reductase Allergy Unknown Severe Verified 12/10/24 09:08 Inhibitor (Yccjshy-Itf-Hrl Muscle Pain Reductase Inhibitor) Sulfa (Sulfonamide Allergy Unknown ADR-Itching Verified 12/10/24 09:08 Antibiotics) baclofen Allergy Affects Verified 12/10/24 09:08 kidney fuctions NSAIDS (Non-Steroidal Allergy Affects Verified 12/10/24 09:08 Anti-Inflamma Kidney functions tramadol AdvReac Intermediate aggression Verified 12/10/24 09:08 Current Medications Generic Name Dose Route Start Last Admin Trade Name Freq PRN Reason Stop Dose Admin Allopurinol 200 mg 12/10/24 18:00 12/11/24 17:23 Allopurinol 100 Mg Tablet PO 200 mg QPM NORA Administration Diclofenac Sodium 2 applic 12/10/24 22:35 12/11/24 15:49 Diclofenac 1% Topical Gel 100 Gm TOPICAL 2 applic QID PRN Administration Pain, Mild Ezetimibe 10 mg 12/11/24 09:00 12/12/24 07:40 Ezetimibe 10 Mg Tablet PO 10 mg DAILY NORA Administration Fenofibrate 145 mg 12/11/24 09:00 12/12/24 07:39 Fenofibrate 145 Mg Tablet PO 145 mg DAILY NORA Administration Furosemide 60 mg 12/11/24 14:00 12/12/24 02:38 Furosemide 10 Mg/Ml Sdv 10ml IVP 60 mg On Hold: 12/12/24 08:25 Q12H NORA Administration Insulin Human Lispro 0 unit 12/10/24 18:00 12/12/24 07:42 Insulin Lispro 100 Unit/1 Ml SUBCUT 4 unit WM&BEDTIME NORA Administration Protocol Isosorbide Mononitrate 60 mg 12/11/24 09:00 12/12/24 07:41 Isosorbide Mononitrate Er 30 Mg Tablet PO 60 mg DAILY NORA Administration Metolazone 2.5 mg 12/11/24 09:00 12/11/24 17:23 Metolazone 5 Mg Tablet PO 2.5 mg On Hold: 12/12/24 08:25 BID NORA Administration Metoprolol Tartrate 100 mg 12/10/24 18:00 12/12/24 07:40 Metoprolol Tartrate 50 Mg Tablet PO 100 mg BID NORA Administration Morphine Sulfate 4 mg 12/10/24 13:30 12/12/24 07:41 Morphine 4 Mg/Ml Sdv 1 Ml IVP 4 mg Q4H PRN Administration SEVERE PAIN Non-Formulary Medication 25 mg 12/11/24 16:00 12/12/24 08:38 Eplerenone PO 25 mg DAILY NORA Administration Non-Formulary Medication 20 mg 12/11/24 16:00 12/12/24 06:42 Leflunomide PO 20 mg QAM NORA Administration Pantoprazole Sodium 40 mg 12/11/24 09:00 12/12/24 07:[address] 40 Mg Tablet PO 40 mg DAILY NORA Administration Potassium Chloride 20 meq 12/11/24 09:00 12/12/24 07:40 Potassium Chloride Er 20 Meq Tablet PO 20 meq On Hold: 12/12/24 08:25 BID NORA Administration Rivaroxaban 20 mg 12/11/24 17:00 12/11/24 17:23 Rivaroxaban 10 Mg Tablet PO 20 mg DAILY@1700 NORA Administration Verapamil HCl 240 mg 12/11/24 06:00 12/12/24 06:42 Verapamil Er 240 Mg Tablet PO 240 mg QAM NORA Administration PFSH Acute PFSH: Medical History (Updated 12/12/24 @ 09:48 by Martínez Orosco MD) Dysphagia Blood transfusion declined because patient is Taoist Chronic anticoagulation Melena Hypertrophy of uvula Diabetes type 2, uncontrolled COVID-19 COVID Dehydration Acute kidney injury superimposed on CKD Hypertrophy of uvula Retrosternal thyroid goiter Dyspnea LINDA on CPAP Ventral incisional hernia Substernal thyroid goiter Diverticulosis Rectal polyp External hemorrhoids with complication Rectal bleeding Morbid obesity with BMI of 60.0-69.9, adult Vitamin D deficiency Hyperlipidemia Anemia Morbid obesity Uncontrolled type 2 diabetes mellitus Diabetic neuropathy Stage 3 chronic kidney disease due to diabetes mellitus Neuropathy Rheumatoid arthritis In remission Carpal tunnel syndrome Osteoarthritis Gout CKD (chronic kidney disease) stage 3, GFR 30-59 ml/min Seronegative rheumatoid arthritis in remission Otalgia Chest pain Patient underwent coronary angiogram which was normal GERD (gastroesophageal reflux disease) Renal insufficiency Improved after IV fluid Diastolic heart failure Atrial fibrillation on anticoagulation Surgical History History of uvulectomy S/P skin cancer resection History of colonoscopy S/P appendectomy S/P thyroid surgery S/P tonsillectomy S/P hernia repair S/P trigger finger release S/P carpal tunnel release 2x left S/P cervical disc replacement History of esophagogastroduodenoscopy (EGD) Family History Father Cancer Prostate Hypertension Hypercholesterolemia Heart disease Mother Hypertension Hypercholesterolemia Anesthesia complication Daughter Anesthesia complication Denies family history of Bleeding disorder Social History Smoking and tobacco/nicotine status: never used tobacco/nicotine Alcohol intake: former Substance/Drug Use: never Lives independently: Yes Household members: spouse Marital status: Current occupational status: disabled Alexandra/Restorationism: Taoist Special alexandra needs: Yes Agree to transfusion: No Vitals/I&O/Wt Last Vital Signs Temp 97.9 F 12/12/24 07:57 Pulse 103 H 12/12/24 07:57 Resp 37 H 12/12/24 07:57 BP 157/84 12/12/24 07:57 Pulse Ox 93 12/12/24 07:57 O2 Del Method BiPAP 12/12/24 04:00 12/11/24 12/12/24 12/12/24 22:59 06:59 14:59 Intake Total 240 / 600 150 / 750 Output Total 2600 / 3700 3950 / 7650 Balance -2360 / -3100 -3800 / -6900 Weight last 48 hrs Weight 380 lb Weight 378 lb 14.4 oz Weight 380 lb 8 oz Weight 380 lb Physical Exam Narrative: Clinically the patient's symptoms do not correlate with TIA or stroke and since the patient is on Xarelto, he was not a candidate for intravenous thrombolytics and no intravenous thrombolytics were administered. NIH stroke score =1 ( secondary to complaints of right forearm and hand numbness) Point of contact glucose Accu-Chek 188 Statin noncontrast thrombolytic head CT 12/12/2024 revealed no acute findings CT angiogram of the head and neck 12/12/2024 IMPRESSION: 1. No high-grade cervical carotid artery stenosis. 2. Swallowing motion artifact causing significant distortion of the soft tissues to the neck and larynx. 3. Very high-grade stenosis of versus occlusion involving the LEFT posterior cerebral artery, P2 and P3 segments. P4 segment is enhancing but very small caliber. 4. patent distal vertebral arteries. The patient was in no acute distress at this time. The patient is alert and oriented x 3. Patient sitting in the recliner chair in room 105 on the cardiac stepdown unit. The patient is in no apparent distress speech fluent. Head normocephalic. Neck supple. There was signs of neck surgery from thyroid surgery in cervical disc surgery. There was no sign of any obvious infection. Cranial nerves II through XII intact pupils 3 mm round reactive light and accommodation. Extraocular movements intact. Motor testing 5/5 bilaterally. Sensory examination: Patient reported some numbness in the right forearm and hand and fingers. There is no weakness. Throat clear. Lungs clear. Heart atrial fibrillation. Extremities were negative for cyanosis. Data 12/12/24 05:00 12/12/24 05:00 A&P Assessment and plan 1. Right arm pain: Impression: 1. Acute onset of right shoulder and arm and hand pain followed by numbness without associated symptoms in patient with history of cervical disc disease and history of cervical disc surgery, remote. Symptoms not consistent with TIA or stroke. Therefore patient was not a candidate for intravenous thrombolytics and no intravenous thrombolytics were administered. 2. Atrial fibrillation treated with Xarelto 3. CT angiogram of head and neck 12/12/2024 revealing Very high-grade stenosis of versus occlusion involving the LEFT posterior cerebral artery, P2 and P3 segments. P4 segment is enhancing but very small caliber, most likely chronic in nature and not correlating with the patient's arm pain and arm numbness. Stat noncontrast thrombolytic head CT revealed no acute findings. 4. Type 2 diabetes mellitus, insulin requiring 5. Seronegative rheumatoid arthritis 6. Obesity Plan: 1. Agree with adding aspirin 81 mg p.o. every morning with food 2. Continue Xarelto for atrial fibrillation 3. Recommend patient follow-up with neurosurgery regarding cervical disc disease 2. Right arm numbness: PDMP PDMP Reviewed: Not Reviewed Consult Attestations Medical Necessity Statement: The patient was evaluated by neurology for stroke alert cardiac stepdown unit room #105 Coding Level of Care Code 09197 Diagnoses Right arm pain M79.601 Right arm numbness R20.0
--- NOTE | 2024-12-12 09:44 | PC.NURSE ---
Patient c/o right arm pain recurring. Received verbal order for tizanidine 4mg PO PRN
--- NOTE | 2024-12-12 10:31 | PC.NURSE ---
pt c/o severe pain from right shoulder to right hand fingertips at 0740.states has hx of cervical disc disorders.palpable radial pulse noted.brisk capillary refill in right arm and no swelling observed.equal hand communication engineer noted.perrl.[id number] given for pain as ordered.then..pt stated that pain had relieved except for in fingertips...and stated my right arm is numb .dr silver notified.stroke alert called.pt taken to ct per protocol.dysphagia screen performed when pt returned.no dysphagia noted.pt alert and oriented x [address] silver examined pt and dr dawson followed.pt reported to dr silver that during episode of right arm pain...he noted chest tightness as well.none reported since that episode.
--- NOTE | 2024-12-12 12:34 | P.PN_ITS ---
Subjective 2 Subjective: Please see my critical care note this morning. Medications: Reviewed: Yes Vitals/I&O/Wt Last Vital Signs Temp 97.9 F 12/12/24 07:57 Pulse 71 12/12/24 08:00 Resp 37 H 12/12/24 07:57 BP 157/84 12/12/24 07:57 Pulse Ox 92 12/12/24 08:00 O2 Del Method Room Air 12/12/24 08:00 12/11/24 12/12/24 12/12/24 22:59 06:59 14:59 Intake Total 240 / 600 150 / 750 360 / 360 Output Total 2600 / 3700 3950 / 7650 Balance -2360 / -3100 -3800 / -6900 360 / 360 Weight last 48 hrs Weight 172.365 kg Weight 171.866 kg Weight 172.592 kg Physical Exam 2 Narrative: General: No acute distress, AO x3 HEENT: PERRLA, pupils bilaterally equal and reactive, pallors not present Chest: Normal vesicular breath sounds, no added sounds, equal good air entry bilaterally CVS: S1-S2 regular, no murmurs, no tachycardia, no gallops, no rubs Abdomen: Soft, nontender, no organomegaly, bowel sounds present Neuro: No focal deficits, no facial deformity, AO x3, power 5/5 in all limbs EXT : B/L LE edema Data 12/12/24 05:00 12/12/24 05:00 A&P Assessment and plan 1. Chronic diastolic heart failure: Patient presneting today with several weeks of increasing shortness of breath, orthopnea and intermittent chest discomfort Rales on exam B/L, B/L LE edema noted EKG with A fib, rate controlled Trop series 16--18--19, no significant delta at 2 hrs of 6 hrs Started on Bumex 1mg iv every 12 hrs monitor I/O and renal function with initiation of diuresis Echocardiogram taken and pending likely acute on chronic diatsolic HF 2. Other persistent atrial fibrillation: currently rate controlled Chronically on Xarelto Currently xarelto on hold and he is on heparin drip per cardiology recommendations. If remains chest pain free, given no concerning EKG changes and no significant delta, may be able to discontinue heparin drip if echo does not show new ischemic changes 3. Chest pain, unspecified type: Atypical chest pain EKG without acute ST-T changes Trop series without significant elevation or delta suspect chest discomfort to be related to acute on chronic CHF exacerbation 4. Anemia: chronic, currently HB is well maintained 5. Seronegative rheumatoid arthritis: continue leflunomide Plan: dvt ppx: heparin drip Full code December 11, 2024 Net -1.1 L. Still having significant lower extremity edema. Unable to lay flat. Bumex 1 mg IV every 12 hours has been changed to Lasix 60 mg IV every 12 hours per cardiology recommendations today. Metolazone 2.5 mg p.o. twice daily has been additionally added. Continue IV diuresis. Monitor JOEY and renal function. December 12, 2024 He is net negative almost 6 L at this point. Please see my dictated critical care event note with regards to patient's stroke code this morning. Diuresis has been held today due to increasing creatinine. CT of the head and CTA of the head and neck did not show any acute occlusion correlating with patient's symptoms. Suspect C-spine disease. Discussed with radiology that cannot rule out possible disc protrusion at C-spine, will obtain CT of the neck for further assessment. MRI deferred as patient will likely not be able to lay flat for an extended time to get MRI. PDMP PDMP Reviewed: Not Reviewed Attestations 2 Medical Necessity Statement*: Diuresis on hold today due to increasing creatinine. Critical care event note as above. Coding Level of Care Code Acute Code for Chg Fwd Diagnoses Chronic diastolic heart failure I50.30 Other persistent atrial fibrillation I48.20 Atrial fibrillation type: unspecified chronic Chest pain, unspecified type R07.9 Chest pain type: unspecified Anemia D64.9 Seronegative rheumatoid arthritis M06.00
--- NOTE | 2024-12-12 12:57 | MR_ITS ---
WS: [id number] MRI CERVICAL SPINE NONCONTRAST TECHNIQUE: Sagittal T1, T2 and STIR imaging. Axial T2, gradient, and fiesta imaging. CLINICAL INFORMATION: numbness affecting RUE COMPARISON: None. FINDINGS: Straightening of the normal cervical lordosis. Prior postoperative changes ACDF C4-5. C2-C3: Moderate RIGHT bony foraminal narrowing. Moderate RIGHT facet arthropathy with slight edema. Spinal canal is patent. C3-C4: Disc osteophyte complex eccentric to the RIGHT with moderate to severe RIGHT bony foraminal narrowing. Mild LEFT foraminal narrowing. Spinal canal is patent. C4-C5: Prior postoperative changes ACDF. Mild facet arthropathy. Mild RIGHT and no significant LEFT foraminal narrowing. C5-C6: Disc osteophyte complex with slight contact of the cervical cord. Mild central canal stenosis. Moderate LEFT and mild RIGHT foraminal narrowing. C6-C7: Mild disc bulge with endplate ridging. Moderate facet arthropathy. Mild to moderate LEFT foraminal narrowing. C7-T1: Spinal canal and foramen are patent. Shallow disc protrusions in the upper cervical spine at T1-2 and T2-3. Visualized brain stem structures: Normal. Prevertebral soft tissues: Normal. MR/MR cervical spin wo con* [id number] IMPRESSION: 1. Prior postoperative changes ACDF C4-5. 2. Disc osteophyte complexes C3-C4 and C5-C6 with slight contact of the cervic al cord. Mild central canal stenosis C5-6. 3. Cord signal is normal. 4. Bony foraminal narrowing moderate RIGHT C2-3, moderate to severe RIGHT C3-4 , mild RIGHT C4-5, and moderate LEFT C5-6. 5. Mild to moderate LEFT C6-7 bony foraminal narrowing.
--- NOTE | 2024-12-12 14:06 | P.PN_ITS ---
<Statement entered by Orlando Armstrong MD - 12/15/24 19:52> Patient was evaluated and cared for in conjunction with an advanced practice practitioner. I personally examined the patient and reviewed the chart and all pertinent data including imaging, telemetry, and laboratory results. I discussed the patient in detail with the advanced practice practitioner. Please see their note for complete H&P testing result and agreed upon plan of care for the patient. Subjective 2 Subjective: Patient had code stroke this AM and was given contrast for CTA head/neck in which was negative for acute stroke. Was seen by neurology as well. He was -6150 over 24 hours. Creatinine increased to 1.5. He states his shortness of breath has much improved. Swelling improved. He was able to lie flat for the CT without difficulty. Vitals/I&O/Wt Last Vital Signs Temp 97.9 F 12/12/24 07:57 Pulse 80 12/12/24 12:00 Resp 12 12/12/24 12:00 BP 146/85 12/12/24 12:00 Pulse Ox 93 12/12/24 12:00 O2 Del Method Room Air 12/12/24 08:00 12/11/24 12/12/24 12/12/24 22:59 06:59 14:59 Intake Total 240 / 600 150 / 750 360 / 360 Output Total 2600 / 3700 3950 / 7650 Balance -2360 / -3100 -3800 / -6900 360 / 360 Weight last 48 hrs Weight 380 lb Weight 378 lb 14.4 oz Physical Exam 2 Narrative: General: No apparent distress, obese HENMT: normoceophalic Muskuloskeletal: Full ROM Respiratory: Normal respiratory effort, clear to auscultation bilaterally throughout all lung pak, no use of accessory muscles Cardio: No JVD, regular rate, regular rhythm, S1 S2 normal, no murmurs, peripheral pulses 2+ radial palpated bilaterally Extremities: Full ROM, normal, normal capillary refill, no cyanosis, 2+ edema bilateral lower extremities Neuro: Alert and oriented x4, no focal motor deficits Psych: Affect normal, mental status grossly normal Skin: vericose veins bilateral lower extremities Data 12/12/24 05:00 12/12/24 05:00 A&P Assessment and plan 1. Atrial fibrillation: 2. Unstable angina pectoris: 3. Diastolic heart failure: 4. Hyperlipemia, mixed: Plan: Echo showed normal EF. Given patient was -6150 L/24 hours and rise in creatinine with contrast given, will hold on diuresis at this time. Hold potassium, as diuretics are not being given. Symptoms have improved. Chest pain may have been due to demand ischemia from fluid overload. Continue strict I&O and monitor creatinine and renal function. Once renal function back to baseline, will add Entresto to patient's regimen. PDMP PDMP Reviewed: Not Reviewed Attestations 2 Medical Necessity Statement*: Deferred to primary. Coding Level of Care Code Acute Code for g Fwd Diagnoses Atrial fibrillation I48.91 Unstable angina pectoris I20.0 Diastolic heart failure I50.30 Hyperlipemia, mixed E78.2
--- NOTE | 2024-12-12 15:06 | PC.SOCIAL ---
IMM UPDATED IMM dated and initialed, copy given to patient and copy placed in chart.
--- NOTE | 2024-12-12 18:12 | PC.NURSE ---
pt cont to have occas sharp,shooting pain and numbness from right shoulder through right hand.mri done.Pt now states this has been an ongoing problem and has seen a neurosurgeon in [place] who had ordered an MRI ,that was never completed.
[2024-12-13] VITALS (7 sets, daily range): BP systolic 137–153; BP diastolic 82–93; PULSE 69–105; RESP 17–28; TEMP 36.1–37; O2SAT 92–95
[2024-12-13 02:52] LABS: Hematocrit 46.5 % (37-53); Hemoglobin 14.90 g/dL (11.27-16.99); Mean Corpuscular HGB Conc 32.0 g/dL (30-55); Mean Corpuscular Hemoglobin 27.3 pg (27-33); Mean Corpuscular Volume 85.2 fl (82-101); Nucleated Red Blood Cells % 0 %; Platelet Count 246 10^3/cmm (157-399); Red Blood Count 5.46 10^6/uL (3.85-5.65); White Blood Count 8.86 10^3/uL (3.29-11.43)
[2024-12-13 03:12] LABS: Alanine Aminotransferase 25 U/L (0-41); Albumin Level 4.4 g/dL (3.5-5.2); Alkaline Phosphatase 81 U/L (40-130); Anion Gap 17.7 (5-19); Aspartate Amino Transferase 34 U/L (0-40); Blood Urea Nitrogen 25 mg/dL (8-23); Calcium 9.9 mg/dL (8.5-10.5); Carbon Dioxide 31 mmol/L (22-29); Chloride 93 mmol/L (98-107); Creatinine Clr Calc Pharmacy 79.4143; Globulin 3.3 g/dL (1.3-4.6); Glucose 219 mg/dL (65-115); Osmolality Calculated 297 mOsm/kg (285-295); Potassium 3.7 mmol/L (3.5-5.1); Sodium 138 mmol/L (136-145); Total Protein 7.7 g/dL (6.6-8.7)
[2024-12-13] MEDS: verapamil ER 240 mg Tablet PO (05:54)
[2024-12-13] MEDS: diclofenac 1% Topical Gel 100 gm 2 APPLIC TOPICAL ×2 (08:45→14:20)
--- NOTE | 2024-12-13 09:43 | P.PN_ITS ---
Subjective 2 Subjective: No new complaints today. Total output 1900 cc. Last 24 hours -100 mL. Creatinine stable at 1.4 today.Saturating 94% on room air. Medications: Reviewed: Yes Vitals/I&O/Wt Last Vital Signs Temp 97.0 F L 12/13/24 07:44 Pulse 72 12/13/24 08:00 Resp 20 H 12/13/24 07:44 BP 142/86 12/13/24 07:44 Pulse Ox 94 12/13/24 08:00 O2 Del Method Room Air 12/13/24 08:00 12/12/24 12/13/24 12/13/24 22:59 06:59 14:59 Intake Total 840 / 1680 240 / 1920 200 / 200 Output Total 1900 / 1900 Balance 840 / 1680 -1660 / 20 200 / 200 Weight last 48 hrs Weight 172.365 kg Weight 172.365 kg Physical Exam 2 Narrative: General: No acute distress, AO x3 HEENT: PERRLA, pupils bilaterally equal and reactive, pallors not present Chest: Normal vesicular breath sounds, no added sounds, equal good air entry bilaterally CVS: S1-S2 regular, no murmurs, no tachycardia, no gallops, no rubs Abdomen: Soft, nontender, no organomegaly, bowel sounds present Neuro: No focal deficits, no facial deformity, AO x3, power 5/5 in all limbs EXT : B/L LE edema Data 12/13/24 02:13 12/13/24 02:13 A&P Assessment and plan 1. Chronic diastolic heart failure: Patient presneting today with several weeks of increasing shortness of breath, orthopnea and intermittent chest discomfort Rales on exam B/L, B/L LE edema noted EKG with A fib, rate controlled Trop series 16--18--19, no significant delta at 2 hrs of 6 hrs Started on Bumex 1mg iv every 12 hrs monitor I/O and renal function with initiation of diuresis Echocardiogram taken and pending likely acute on chronic diatsolic HF 2. Other persistent atrial fibrillation: currently rate controlled Chronically on Xarelto Currently xarelto on hold and he is on heparin drip per cardiology recommendations. If remains chest pain free, given no concerning EKG changes and no significant delta, may be able to discontinue heparin drip if echo does not show new ischemic changes 3. Chest pain, unspecified type: Atypical chest pain EKG without acute ST-T changes Trop series without significant elevation or delta suspect chest discomfort to be related to acute on chronic CHF exacerbation 4. Anemia: chronic, currently HB is well maintained 5. Seronegative rheumatoid arthritis: continue leflunomide Plan: dvt ppx: heparin drip Full code December 11, 2024 Net -1.1 L. Still having significant lower extremity edema. Unable to lay flat. Bumex 1 mg IV every 12 hours has been changed to Lasix 60 mg IV every 12 hours per cardiology recommendations today. Metolazone 2.5 mg p.o. twice daily has been additionally added. Continue IV diuresis. Monitor JOEY and renal function. December 12, 2024 He is net negative almost 6 L at this point. Please see my dictated critical care event note with regards to patient's stroke code this morning. Diuresis has been held today due to increasing creatinine. CT of the head and CTA of the head and neck did not show any acute occlusion correlating with patient's symptoms. Suspect C-spine disease. Discussed with radiology that cannot rule out possible disc protrusion at C-spine, will obtain CT of the neck for further assessment. MRI deferred as patient will likely not be able to lay flat for an extended time to get MRI. December 13, 2024 Net -7 L since admission. Last 24 hours diuretics were held due to ANAHI with creatinine trending up to 1.5, this is today stable at 1.4. Will resume diuresis with Lasix 60 IV every 12 hours. Continue to hold metolazone. Goal is to keep him net negative over the next 24 hours with plan to transition to oral diuresis. MRI of the C-spine was able to be completed yesterday Which showed postop changes ACDF at C4-C5 level. There are disc osteophytes at the C3 C4-C5-C6 level with contact with the cervical cord with mild central canal stenosis. Cord signal was normal. There was bony foraminal narrowing noted moderate to severe at the C3-C4 level and also moderately on the left side. This is likely the explanation of his right arm numbness and pain. No hematoma or acute disc prolapse was noted. PDMP PDMP Reviewed: Not Reviewed Attestations 2 Medical Necessity Statement*: Resume IV diuresis today. Continue to monitor kidney function and urine output. Plan transition to oral diuresis next 24 hours Coding Level of Care Code Acute Code for Chg Fwd High MDM includes number and complexity of problems actively addressed during encounter, amount and/or complexity of data reviewed/ordered and described risk of complication, morbidity or mortality of management as documented Diagnoses Chronic diastolic heart failure I50.30 Other persistent atrial fibrillation I48.20 Atrial fibrillation type: unspecified chronic Chest pain, unspecified type R07.9 Chest pain type: unspecified Anemia D64.9 Seronegative rheumatoid arthritis M06.00
[2024-12-13] MEDS: FUROsemide 10 mg/mL SDV 10mL 60 MG IVP (14:11)
--- NOTE | 2024-12-13 20:31 | P.PN_ITS ---
Subjective 2 Subjective: Patient urine output went down this morning because Lasix was held he still has lower extremity edema Medications: Reviewed: Yes Vitals/I&O/Wt Last Vital Signs Temp 97.9 F 12/13/24 19:32 Pulse 78 12/13/24 19:32 Resp 24 H 12/13/24 19:32 BP 149/85 12/13/24 19:32 Pulse Ox 92 12/13/24 19:32 O2 Del Method Room Air 12/13/24 19:32 12/13/24 12/13/24 12/13/24 06:59 14:59 22:59 Intake Total 240 / 1920 560 / 560 240 / 800 Output Total 1900 / 1900 1000 / 1000 Balance -1660 / 20 560 / 560 -760 / -200 Weight last 48 hrs Weight 380 lb Weight 380 lb Physical Exam 2 Const: OTHER: GENERAL: Patient is alert, awake and oriented x3. Sitting in the recliner HEART: Regular S1 and S2. No murmur, rub or gallop. LUNGS: C decreased breath bilaterally. CENTRAL NERVOUS SYSTEM: Grossly nonfocal. EXTREMITIES: Lower extremities with 2+ edema bilaterally. Data 12/13/24 02:13 12/13/24 02:13 A&P Assessment and plan 1. Other persistent atrial fibrillation: 2. Chronic diastolic heart failure: 3. Hyperlipemia, mixed: Plan: Resume IV Lasix 60 mg p.o. Electrolyte balance Once euvolemic and creatinine improves we will add Entresto Patient chest pressure most likely secondary to being volume overload status nearly 4 years ago in 2019 patient had left heart cath which did not show significant coronary artery disease therefore at this point if patient remains chest pain-free upon achieving euvolemic state then we do not have any intention for stress test or left heart cath. Further plan will advise as per progress the patient PDMP PDMP Reviewed: Not Reviewed Attestations 2 Medical Necessity Statement*: Patient require continuation hospitalization for above defined care Coding Level of Care Code Acute Code for Chg Fwd Diagnoses Other persistent atrial fibrillation I48.20 Atrial fibrillation type: unspecified chronic Chronic diastolic heart failure I50.30 Hyperlipemia, mixed E78.2
[2024-12-14] VITALS (11 sets, daily range): BP systolic 123–172; BP diastolic 69–109; PULSE 60–93; RESP 15–27; TEMP 36.2–36.9; O2SAT 90–96
[2024-12-14] MEDS: FUROsemide 10 mg/mL SDV 10mL 60 MG IVP (01:24)
[2024-12-14] MEDS: morphine 4 mg/mL SDV 1 mL IVP ×2 (02:15→11:00)
[2024-12-14 02:33] LABS: Hematocrit 46.7 % (37-53); Hemoglobin 14.60 g/dL (11.27-16.99); Mean Corpuscular HGB Conc 31.3 g/dL (30-55); Mean Corpuscular Hemoglobin 26.9 pg (27-33); Mean Corpuscular Volume 86.0 fl (82-101); Nucleated Red Blood Cells % 0 %; Platelet Count 263 10^3/cmm (157-399); Red Blood Count 5.43 10^6/uL (3.85-5.65); White Blood Count 10.68 10^3/uL (3.29-11.43)
[2024-12-14 02:51] LABS: Alanine Aminotransferase 30 U/L (0-41); Albumin Level 4.4 g/dL (3.5-5.2); Alkaline Phosphatase 77 U/L (40-130); Blood Urea Nitrogen 28 mg/dL (8-23); Calcium 10.0 mg/dL (8.5-10.5); Carbon Dioxide 32 mmol/L (22-29); Chloride 89 mmol/L (98-107); Creatinine Clr Calc Pharmacy 69.4876; Globulin 3.4 g/dL (1.3-4.6); Glucose 204 mg/dL (65-115); Osmolality Calculated 291 mOsm/kg (285-295); Sodium 135 mmol/L (136-145); Total Protein 7.8 g/dL (6.6-8.7)
[2024-12-14 02:52] LABS: Anion Gap 17.5 (5-19); Aspartate Amino Transferase 37 U/L (0-40); Potassium 3.5 mmol/L (3.5-5.1)
[2024-12-14] MEDS: verapamil ER 240 mg Tablet PO (06:09)
--- NOTE | 2024-12-14 10:32 | ECG_ITS ---
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 Measurements Intervals Seanor Rate: 62 P: 0 AL: 0 QRS: -55 QRSD: 120 T: -23 QT: 412 QTc: 421 Interpretive Statements ATRIAL FIBRILLATION LEFT AXIS DEVIATION [QRS AXIS < -30] MODERATE INTRAVENTRICULAR CONDUCTION DELAY [105+ ms QRS DURATION, 80+ ms Q/S IN V1/V2, NO Q AND 60+ ms R IN I/aVL/V5/V6] NONSPECIFIC T-WAVE ABNORMALITY INTERPRETATION BASED ON A DEFAULT AGE OF 40 YEARS Compared to ECG 12/10/2024 16:05:04 Intraventricular conduction delay now present T-wave abnormality now present Right bundle-branch block no longer present Myocardial infarct finding no longer present Electronically Signed On 12-16-2024 08:17:12 CDT by Robb Banegas M.D. [email or web address]
[2024-12-14] MEDS: hyDRALAzine 20 mg/mL INJ 1 mL 5 MG IVP (11:34)
[2024-12-14] MEDS: nitroglycerin 1 gm/inch oint Pkt 1 INCH TOPICAL ×3 (11:34→23:57)
--- NOTE | 2024-12-14 14:39 | P.PN_ITS ---
Subjective 2 Subjective: Patient complained of some chest discomfort this afternoon. EKG did not show any acute ST-T wave changes. Creatinine up to 1.6 today. Medications: Reviewed: Yes Vitals/I&O/Wt Last Vital Signs Temp 97.2 F L 12/14/24 11:52 Pulse 66 12/14/24 11:52 Resp 22 H 12/14/24 11:52 BP 134/69 12/14/24 11:52 Pulse Ox 92 12/14/24 11:52 O2 Del Method Room Air 12/14/24 11:52 12/13/24 12/14/24 12/14/24 22:59 06:59 14:59 Intake Total 720 / 1280 480 / 1760 480 / 480 Output Total 1900 / 1900 1950 / 3850 350 / 350 Balance -1180 / -620 -1470 / -2090 130 / 130 Weight last 48 hrs Weight 170.097 kg Weight 172.365 kg Physical Exam 2 Narrative: General: No acute distress, AO x3 HEENT: PERRLA, pupils bilaterally equal and reactive, pallors not present Chest: Normal vesicular breath sounds, no added sounds, equal good air entry bilaterally CVS: S1-S2 regular, no murmurs, no tachycardia, no gallops, no rubs Abdomen: Soft, nontender, no organomegaly, bowel sounds present Neuro: No focal deficits, no facial deformity, AO x3, power 5/5 in all limbs EXT : B/L LE edema improving Data 12/14/24 02:05 12/14/24 02:05 A&P Assessment and plan 1. Chronic diastolic heart failure: Patient presneting today with several weeks of increasing shortness of breath, orthopnea and intermittent chest discomfort Rales on exam B/L, B/L LE edema noted EKG with A fib, rate controlled Trop series 16--18--19, no significant delta at 2 hrs of 6 hrs Started on Bumex 1mg iv every 12 hrs monitor I/O and renal function with initiation of diuresis Echocardiogram taken and pending likely acute on chronic diatsolic HF 2. Other persistent atrial fibrillation: currently rate controlled Chronically on Xarelto Currently xarelto on hold and he is on heparin drip per cardiology recommendations. If remains chest pain free, given no concerning EKG changes and no significant delta, may be able to discontinue heparin drip if echo does not show new ischemic changes 3. Chest pain, unspecified type: Atypical chest pain EKG without acute ST-T changes Trop series without significant elevation or delta suspect chest discomfort to be related to acute on chronic CHF exacerbation 4. Anemia: chronic, currently HB is well maintained 5. Seronegative rheumatoid arthritis: continue leflunomide Plan: dvt ppx: heparin drip Full code December 11, 2024 Net -1.1 L. Still having significant lower extremity edema. Unable to lay flat. Bumex 1 mg IV every 12 hours has been changed to Lasix 60 mg IV every 12 hours per cardiology recommendations today. Metolazone 2.5 mg p.o. twice daily has been additionally added. Continue IV diuresis. Monitor JOEY and renal function. December 12, 2024 He is net negative almost 6 L at this point. Please see my dictated critical care event note with regards to patient's stroke code this morning. Diuresis has been held today due to increasing creatinine. CT of the head and CTA of the head and neck did not show any acute occlusion correlating with patient's symptoms. Suspect C-spine disease. Discussed with radiology that cannot rule out possible disc protrusion at C-spine, will obtain CT of the neck for further assessment. MRI deferred as patient will likely not be able to lay flat for an extended time to get MRI. December 13, 2024 Net -7 L since admission. Last 24 hours diuretics were held due to ANAHI with creatinine trending up to 1.5, this is today stable at 1.4. Will resume diuresis with Lasix 60 IV every 12 hours. Continue to hold metolazone. Goal is to keep him net negative over the next 24 hours with plan to transition to oral diuresis. MRI of the C-spine was able to be completed yesterday Which showed postop changes ACDF at C4-C5 level. There are disc osteophytes at the C3 C4-C5-C6 level with contact with the cervical cord with mild central canal stenosis. Cord signal was normal. There was bony foraminal narrowing noted moderate to severe at the C3-C4 level and also moderately on the left side. This is likely the explanation of his right arm numbness and pain. No hematoma or acute disc prolapse was noted. December 14, 2024 -2500 cc Last 24 hours. Overall net -9 L since admission. Creatinine up to 1.6 today. Will reduce dose of Lasix to 40 mg IV every 12 hours. May be partially contributed by recent contrast that he received for CTA head. He is complaining of on and off chest discomfort this morning. EKG does not show any acute changes. Given that patient is continuing to have intermittent chest discomfort, will proceed with coronary angiogram tomorrow. PDMP PDMP Reviewed: Not Reviewed Attestations 2 Medical Necessity Statement*: Continued need for IV diuresis, angiogram tomorrow. Coding Level of Care Code Acute Code for Chg Fwd High MDM includes number and complexity of problems actively addressed during encounter, amount and/or complexity of data reviewed/ordered and described risk of complication, morbidity or mortality of management as documented Diagnoses Chronic diastolic heart failure I50.30 Other persistent atrial fibrillation I48.91 Chest pain, unspecified type R07.9 Anemia D64.9 Seronegative rheumatoid arthritis M06.00
[2024-12-14] MEDS: FUROsemide 10 mg/mL SDV 4mL 40 MG IVP (16:02)
--- NOTE | 2024-12-14 19:49 | P.PN_ITS ---
Subjective 2 Subjective: Patient continues to have off-and-on chest pressure relieved with nitro. No EKG changes. Medications: Reviewed: Yes Vitals/I&O/Wt Last Vital Signs Temp 97.1 F L 12/14/24 16:00 Pulse 89 12/14/24 19:22 Resp 27 H 12/14/24 19:22 BP 172/87 12/14/24 19:22 Pulse Ox 90 12/14/24 19:22 O2 Del Method Room Air 12/14/24 19:22 12/14/24 12/14/24 12/14/24 06:59 14:59 22:59 Intake Total 480 / 1760 480 / 480 240 / 720 Output Total 1950 / 3850 350 / 350 550 / 900 Balance -1470 / -2090 130 / 130 -310 / -180 Weight last 48 hrs Weight 375 lb Weight 380 lb Physical Exam 2 Const: OTHER: GENERAL: Patient is alert, awake and oriented x3. Sitting in the recliner HEART: Regular S1 and S2. No murmur, rub or gallop. LUNGS: C decreased breath bilaterally. CENTRAL NERVOUS SYSTEM: Grossly nonfocal. EXTREMITIES: Lower extremities with 2+ edema bilaterally. Data 12/14/24 02:05 12/14/24 02:05 A&P Assessment and plan 1. Other persistent atrial fibrillation: 2. Chronic diastolic heart failure: 3. Hyperlipemia, mixed: Plan: Resume IV Lasix 60 mg p.o. Electrolyte balance Once euvolemic and creatinine improves we will add Entresto Patient chest pressure most likely secondary to being volume overload status nearly 4 years ago in 2019 patient had left heart cath which did not show significant coronary artery disease therefore at this point if patient remains chest pain-free upon achieving euvolemic state then we do not have any intention for stress test or left heart cath. Further plan will advise as per progress the patient On today's visit dated 12/14/2024 patient had this morning chest pain relieved with nitroglycerin. I have reviewed the angiogram which showed no significant stenosis however since patient continues to have chest pressure with recurrent heart failure at this point I am compelled to proceed with left heart cath. Patient has been explained all risk-benefit and alternative for the procedure he understand 10 to 15% risk of contrast-induced nephropathy leading to temporary permanent dialysis. Like to proceed with it. Continue IV Lasix N.p.o. overnight Continue holding Xarelto last dose was yesterday proceed with left heart cath in the morning PDMP PDMP Reviewed: Not Reviewed Attestations 2 Medical Necessity Statement*: Require continuation hospitalization for further evaluation and care. Coding Level of Care Code Acute Code for Chg Fwd Diagnoses Other persistent atrial fibrillation I48.20 Atrial fibrillation type: unspecified chronic Chronic diastolic heart failure I50.30 Hyperlipemia, mixed E78.2
[2024-12-15] VITALS (18 sets, daily range): BP systolic 121–151; BP diastolic 69–109; PULSE 67–91; RESP 17–37; TEMP 36.7–37.2; O2SAT 89–94; BMI 52.5
[2024-12-15] MEDS: FUROsemide 10 mg/mL SDV 4mL 40 MG IVP ×2 (03:58→17:10)
[2024-12-15 05:28] LABS: Hematocrit 45.0 % (37-53); Hemoglobin 14.60 g/dL (11.27-16.99); Mean Corpuscular HGB Conc 32.4 g/dL (30-55); Mean Corpuscular Hemoglobin 27.2 pg (27-33); Mean Corpuscular Volume 84.0 fl (82-101); Nucleated Red Blood Cells % 0 %; Platelet Count 225 10^3/cmm (157-399); Red Blood Count 5.36 10^6/uL (3.85-5.65); White Blood Count 10.02 10^3/uL (3.29-11.43)
[2024-12-15 05:52] LABS: Alanine Aminotransferase 27 U/L (0-41); Albumin Level 4.2 g/dL (3.5-5.2); Alkaline Phosphatase 74 U/L (40-130); Anion Gap 17.4 (5-19); Aspartate Amino Transferase 31 U/L (0-40); Blood Urea Nitrogen 36 mg/dL (8-23); Calcium 9.6 mg/dL (8.5-10.5); Carbon Dioxide 31 mmol/L (22-29); Chloride 89 mmol/L (98-107); Creatinine Clr Calc Pharmacy 72.4949; Globulin 3.3 g/dL (1.3-4.6); Glucose 243 mg/dL (65-115); Osmolality Calculated 294 mOsm/kg (285-295); Potassium 3.4 mmol/L (3.5-5.1); Sodium 134 mmol/L (136-145); Total Protein 7.5 g/dL (6.6-8.7)
[2024-12-15] MEDS: verapamil ER 240 mg Tablet PO (05:56)
[2024-12-15] MEDS: nitroglycerin 1 gm/inch oint Pkt 1 INCH TOPICAL (05:56)
--- NOTE | 2024-12-15 07:40 | PC.NURSE ---
Clarified with Dr. rAmstrong regarding cath today. Per Dr. bonilla patient is going at 1100, order bendryal 50 mg once and IVF 75 ml/hr hour before procedure.
--- NOTE | 2024-12-15 09:42 | PC.SOCIAL ---
IMM Update Updated pt on IMM. No questions voiced. Provided pt a copy. Initialed, dated, & timed copy in chart.
--- NOTE | 2024-12-15 10:48 | P.PN_ITS ---
<Statement entered by Orlando Armstrong MD - 12/15/24 19:51> Patient was evaluated and cared for in conjunction with an advanced practice practitioner. I personally examined the patient and reviewed the chart and all pertinent data including imaging, telemetry, and laboratory results. I discussed the patient in detail with the advanced practice practitioner. Please see their note for complete H&P testing result and agreed upon plan of care for the patient. Patient underwent left heart catheterization, noted to have no significant disease GENERAL: Patient is alert, awake and oriented x3. HEART: Regular S1 and S2. No murmur, rub or gallop. LUNGS: Clear to auscultate bilaterally. CENTRAL NERVOUS SYSTEM: Grossly nonfocal. EXTREMITIES: Lower extremities with 1+ edema bilaterally. Assessment and plan Acute decompensated diastolic heart failure on chronic Chest pain Hypertension Acute on chronic kidney disease Patient underwent left heart catheterization noted to have no significant coronary artery disease Continue IV Lasix Optimize medical management If creatinine remained stable We will switch patient to p.o. Lasix tomorrow, possible discharge tomorrow Subjective 2 Subjective: He appears euvolemic, plan for coronary angiogram at 11 AM today. He remains n.p.o. Chest pain and shortness of breath significantly improved, only mild substernal chest pain present this morning. He has Nitropaste to the chest wall. Vitals/I&O/Wt Last Vital Signs Temp 98.2 F 12/15/24 07:47 Pulse 73 12/15/24 07:47 Resp 21 H 12/15/24 07:47 BP 134/106 12/15/24 07:47 Pulse Ox 92 12/15/24 07:47 O2 Del Method BiPAP 12/15/24 05:03 12/14/24 12/15/24 12/15/24 22:59 06:59 14:59 Intake Total 240 / 720 Output Total 550 / 1500 600 / 1500 Balance -310 / -780 -600 / -780 Weight last 48 hrs Weight 366 lb 6 oz Weight 375 lb Physical Exam 2 Const: COMMON NORMALS: no acute distress and patient oriented x3 GENERAL APPEARANCE: cooperative and comfortable ORIENTATION/CONSCIOUSNESS: Yes awake, Yes oriented to person, Yes oriented to place and Yes oriented to time Chest: COMMONS NORMALS: normal inspection of the chest and normal palpation of entire chest wall CHEST: Yes Symmetrical chest wall rise Resp: COMMON NORMALS: normal respiratory effort, No retractions, No use of accessory muscles and clear to auscultation bilaterally EFFORT & INSPECTION: Yes symmetric chest movement AUSCULTATION: clear to auscultation bilaterally Cardio: COMMON NORMALS: regular rate, S1 normal heart sound present, S2 normal heart sound present, No gallops present (Cardio), No clicks present (Cardio), No murmurs present (Cardio) and No rub (Cardio) RATE: regular rate RHYTHM: a bnormal rhythm irregularly irregular HEART SOUNDS: S1 normal heart sound present and S2 normal heart sound present PERIPHERAL PULSES: radial pulses present Extremity: GENERAL: Yes edema (1+ pitting edema bilateral lower extremity below knee) Neuro: COMMON NORMALS: patient oriented x3 and moves all extremities S ENSORIUM/ORIENTATION: Yes oriented to person, Yes oriented to place and Yes oriented to time Data 12/15/24 05:23 12/15/24 05:23 A&P Assessment and plan 1. Diastolic heart failure: 2. Chest pain: 3. Atrial fibrillation: 4. Diabetes type 2, uncontrolled: 5. Morbid obesity with BMI of 60.0-69.9, adult: 6. CKD (chronic kidney disease) stage 3, GFR 30-59 ml/min: Plan: Plan for coronary angiogram today. Will optimize medication regimen by adding Farxiga, he was on Entresto previously but caused an elevation in creatinine and was discontinued. He sees nephrology as an outpatient. Continue Imdur, metoprolol, hydralazine, Lasix, aspirin, verapamil. Xarelto has been on hold pending heart cath. PDMP PDMP Reviewed: Not Reviewed Attestations 2 Medical Necessity Statement*: Ischemic workup Coding Level of Care Code Acute Code for [facility] Fwd Diagnoses Diastolic heart failure I50.30 Chest pain R07.9 Atrial fibrillation I48.91 Diabetes type 2, uncontrolled Morbid obesity with BMI of 60.0-69.9, adult E66.01; Z68.44 CKD (chronic kidney disease) stage 3, GFR 30-59 ml/min N18.30
--- NOTE | 2024-12-15 11:00 | XACV_ITS ---
Exam Room: [facility] Ht: 178 cm Wt: 166 kg BSA: 2.96 m2 Gender: Male : 1955 Any Known Allergies: Other Exam Priority: Routine Procedure(s): Procedure Description: Diagnostic procedure Procedure Description: Coronary Angiography FREDA, Nathaniel; Diagnostic Cath Status: Urgent Diagnostic Findings * No disease noted in the Left Main, Left Anterior Descending, Right, or Circumflex coronary arteries. * Coronary angiography shows right dominance. Conclusions 1. No disease noted in the Left Main, Left Anterior Descending, Right, or Circumflex coronary arteries. Recommendations * Continue current medical management and risk factor modification. Diagnostic RX Recommendation: medical therapy and/or counseling Pressures Phase:Rest AO : 120 / 74 ( 89 ) @ 12:47:00 PM Clinical Evaluation EBL: 5mL-10mL Procedural Details Procedure Consent Obtained. Pre-Procedure Time Out. Identified patient by full name and date of as verbalized by the patient/guarantor. Does the consent match the physician's order: Yes. Accurate & Complete Informed Consent: Yes. Inpatient/Outpatient History & Physical on Chart: Yes. If H&P is completed, is and addenduem needed: No. Visualize and Verify Site with Patient/Guarantor: N/A. Relevant Radiology Images available: Yes. The risks, benefits, and alternatives of sedation and/or procedure were discussed by physician. The patient agrees to continue. Procedure started. [facility] Clinical Fraility Score: 4: Vulnerable. Police Chief Deputy Indications: New Onset Angina. Chest Pain Symptom Assessment: Atypical Angina. Cardiovascular Instability: No. Correct patient, site and procedure confirmed by cath team. PERRLA. Strong, equal hand wrapping machine helper bilaterally. Lungs clear x 5 lobes. IV Site on Arrival: 20 gauge in the right anticubital. IV Fluids: 0.9% NaCl at KVO. 0 mL infused prior to orthodontic lab technician. Pre Procedural Pulses: bilateral dorsalis pedis was Doppled. Pre Procedural Pulses: bilateral posterior tibial was Doppled. Pre Procedural Pulses: bilateral radial was 2+. Oxygen started at 2liters/min via nasal canula. right groin was prepped with chloroprep then draped in the usual sterile fashion. right radial was prepped with chloroprep then draped in the usual sterile fashion. Physician notified. Baseline sample Acquired. HR: 67 BPM. Patient's family in the orthodontic lab technician waiting room. Dr. Armstrong will update at the completion of the procedure. Equipment: 6F - Radial. Cardiac Cath Pack. ACFlo Water Manifold Kit Model BT 2000. Heparinized Saline (2 units/mL), 1000 mL bag. Physician arrived. Physician scrubbed in. Immediate Pre-Procedure Time Out. Correct Patient: Yes; Correct Procedure: Yes; Correct Site: Yes; Correct Patient Position: Yes; Correct Supplies: Yes; Dried Flammable Prep: Yes; Blood Products Available: N/A;. Lidocaine 1% infiltrated to the right radial. Arterial access obtained. A 5 jamaican Gonzalo catheter in over the exchange J wire. Multiple views taken of left coronary artery. Catheter redirected to the RCA. Multiple views taken of right coronary artery. Catheter removed over the exchange J wire. Physician scrubbed out. A TR Band was successful obtaining hemostatsis at the Right Radial artery insertion site. Post Procedure: Pulses reassessed and unchanged. PERRLA. Strong, equal hand wrapping machine helper bilaterally. No VTE prophylaxis required. Medication's Wasted: Lidocaine 1% = 18 mL. Medication's Wasted: Nitro = 49.8 mg. Medication's Wasted: Heparin = 1000 units. Medication's Wasted: Other = Versed 1 mg. Medication's Wasted: Other = Fentanyl 50 mcg. Medication's Wasted: Other = Benadryl 25 mg. Total IV fluids: 25 mL. Post-op diagnosis: Normal coronaries. Complications: none. Estimated blood loss: 5mL-10mL. Responsiveness - Normal response to verbal stimuli; alert and oriented, PERRLA. Airway - Unaffected, no intervention required; spontaneous ventilation. Circulation: W/N/L, pulses unchanged. Vital chart was stopped. Nausea/Vomiting: No. Procedure completed. Patient transferred by bed to 1st floor. Access Site Site: Right Radial artery Sheath Size: 6 Fr Hemostasis Method: TR Band Hemostasis Success: Successful Procedure Medications Start: 11:25 AM Stop: :25 AM Medication: Benadryl Amount: 25 mg Route: I.V. Start: 11:36 AM Stop: :36 AM Medication: Versed Amount: 1 mg Route: I.V. Start: 11:36 AM Stop: :36 AM Medication: Fentanyl Amount: 50 mcg Route: I.V. Start: 11:44 AM Stop: :44 AM Medication: Nitrogylcerin Amount: 200 mcg Route: I.A. Start: 11:46 AM Stop: :46 AM Medication: Heparin Amount: 5000 units Route: I.V. I, the attending physician, have reviewed and verified all procedure medications. Yes, all medications given per verbal order History/Risk Factors Hypertension: No Dyslipidemia: Yes Peripheral Arterial Disease (PAD): No Myocardial Infarction ([place]): No Obesity: Yes Renal Disease: No Tobacco Use: Never Prior Interventions PCI: No CABG: No Valve Surgery: No Report Signatures Finalized by Orlando Armstrong MD on 12/15/2024 12:15 PM
--- NOTE | 2024-12-15 11:35 | W.PM.OPSUD ---
Surgery/Procedure H&P Update DATE OF PROCEDURE: December 15, 2024 DATE H&P PERFORMED: 12/15/24 H&P UPDATE INFORMATION: I have reviewed H&P completed within last 30 days, I have examined patient prior to procedure and No changes to prior documentation CHANGES TO PREVIOUS DOCUMENTATION: Worsening of heart failure Chest pain suggestive of angina PREOP DIAGNOSIS: Worsening of heart failure PRIMARY INDICATION FOR PROCEDURE: 69-year-old male past medical history significant for CHF hypertension obesity with recurrent uncontrolled heart failure along with chest pain almost on daily basis relieved with nitroglycerin he is here for left heart cath. PATIENT REASSESSED PRIOR TO SEDATION, WITH NO CHANGE NOTED: Yes PHYSICAL EXAM: alert, oriented x 3, clear to auscultation bilaterally, regular rate & rhythm and operative site marked AIRWAY EVAL/ANESTHESIA PLAN: ASA II, Risks, benefits & alternatives of sedation and/or procedure discussed and Patient agrees to continue as planned ADDITIONAL INFORMATION: Patient has been explained all risk-benefit and alternative for the procedure. Patient understand 2% risk of stroke major bleed, patient understands expected risk of contrast-induced nephropathy leading to temporary or permanent dialysis because of his chronic kidney disease, he understand 5% risk of pseudoaneurysm hematoma urgent emergent vascular bypass surgery and infection. He agrees to it and would like to proceed with it.
--- NOTE | 2024-12-15 12:00 | PC.NURSE ---
Received pt from Content Development Specialist Pt has TR band on, intact,no bleeding or hematoma or swelling. Pt is awake, denies any pain or discomfort,denies any shortness of breath.Vital signs monitored. Eductaed pt on activity restrictions post cath w/TR band access such as no lifting of more than 5 lbs, unneccessary pushing our pulling heavily using right arm. Educated pt to let nurse know of any bleeding,unusual pain or burning sensation on right arm. call light provided back to pt. at bedside.
--- NOTE | 2024-12-15 14:01 | P.PN_ITS ---
Subjective 2 Subjective: cath today. Vitals/I&O/Wt Last Vital Signs Temp 98.2 F 12/15/24 07:47 Pulse 72 12/15/24 12:00 Resp 37 H 12/15/24 12:00 BP 121/70 12/15/24 12:00 Pulse Ox 91 12/15/24 12:00 O2 Del Method BiPAP 12/15/24 05:03 12/14/24 12/15/24 12/15/24 22:59 06:59 14:59 Intake Total 240 / 720 240 / 240 Output Total 550 / 900 600 / 1500 Balance -310 / -180 -600 / -780 240 / 240 Weight last 48 hrs Weight 166.185 kg Weight 170.097 kg Physical Exam 2 Const: COMMON NORMALS: no acute distress and patient oriented x3 N UTRITIONAL APPEARANCE: obese HENMT: COMMON NORMALS: normocephalic and atraumatic HEAD & SCALP: n ormocephalic and atraumatic Eye: COMMON NORMALS: Equal, round and reactive pupils present PUPIL: Yes Equal, round and reactive pupils present Lymph: LYMPHATIC: no lymphedema noted Chest: COMMONS NORMALS: normal inspection of the chest Resp: COMMON NORMALS: normal respiratory effort and clear to auscultation bilaterally AUSCULTATION: clear to auscultation bilaterally Cardio: COMMON NORMALS: regular rate, regular rhythm, No gallops present (Cardio), No murmurs present (Cardio) and No rub (Cardio) RATE: regular rate RHYTHM: regular rhythm GI: COMMON NORMALS: Soft to palpation and non-tender PALPATION: Yes Soft to palpation Extremity: NARRATIVE EXTREMITY EXAM: BL LE edema Neuro: COMMON NORMALS: patient oriented x3 and CN's II-XII intact bilaterally Data 12/15/24 05:23 12/15/24 05:23 A&P Assessment and plan 1. Chest pain: 2. Morbid obesity with BMI of 60.0-69.9, adult: 3. Diabetes type 2, uncontrolled: 4. Diastolic heart failure: Plan: 69 year old male presenting with HFpEF with exacerbation, CP and afib. 1. Acute on Chronic diastolic heart failure (HFpEF): - several weeks of increasing shortness of breath, orthopnea and intermittent chest discomfort - B/L LE edema improving with diuresis - Trop series 16--18--19, no significant delta at 2 hrs of 6 hrs - cont. metolazone 2.5 mg PO every 12 hrs - lasix 40 mg IV Q12H - monitor I/O and renal function with initiation of diuresis - Echocardiogram with normal EF 2. Other persistent atrial fibrillation: currently rate controlled - restart Chronic Xarelto 3. Chest pain, unspecified type: Atypical chest pain EKG without acute ST-T changes Trop series without significant elevation or delta suspect chest discomfort to be related to acute on chronic CHF exacerbation - cath done today that was clear 4. Anemia: chronic, currently HB is well maintained 5. Seronegative rheumatoid arthritis: continue leflunomide Hypokalemia - getting 20 oral BID DMII - SSI - reduce home insulin to glargine 30 qHS, lispro 10 w/ meals - adjust as needed PPx: xarelto Disposition - able to discharge when euvolemic. PDMP PDMP Reviewed: Not Reviewed Attestations 2 Medical Necessity Statement*: Anticipate > 2 midnights for HFpEF with exacerbation, post cath care Time Spent in Patient Care: 16 - 35 minutes (>than 50% of time sp ent in counselling and/or direct pt care on unit) . Coding Level of Care Code Acute Code for [facility] Fwd Diagnoses Chest pain R07.9 Morbid obesity with BMI of 60.0-69.9, adult E66.01; Z68.44 Diabetes type 2, uncontrolled Diastolic heart failure I50.30
[2024-12-15] MEDS: insulin glargine 100 units/1 mL 30 UNIT SUBCUT (21:33)
[2024-12-15] MEDS: HYDROcodone-acetaminophen 5-325 mg Tablet 1 TAB PO (21:34)
[2024-12-16] VITALS (7 sets, daily range): BP systolic 118–148; BP diastolic 69–102; PULSE 65–93; RESP 9–24; TEMP 36.1–36.3; O2SAT 92–93
[2024-12-16 03:13] LABS: Hematocrit 44.1 % (37-53); Hemoglobin 14.40 g/dL (11.27-16.99); Mean Corpuscular HGB Conc 32.7 g/dL (30-55); Mean Corpuscular Hemoglobin 27.6 pg (27-33); Mean Corpuscular Volume 84.5 fl (82-101); Nucleated Red Blood Cells % 0 %; Platelet Count 201 10^3/cmm (157-399); Red Blood Count 5.22 10^6/uL (3.85-5.65); White Blood Count 9.53 10^3/uL (3.29-11.43)
[2024-12-16] MEDS: FUROsemide 10 mg/mL SDV 4mL 40 MG IVP (03:33)
[2024-12-16 03:48] LABS: Anion Gap 16.0 (5-19); Blood Urea Nitrogen 37 mg/dL (8-23); Calcium 9.0 mg/dL (8.5-10.5); Carbon Dioxide 30 mmol/L (22-29); Chloride 90 mmol/L (98-107); Creatinine Clr Calc Pharmacy 72.4949; Glucose 245 mg/dL (65-115); Osmolality Calculated 293 mOsm/kg (285-295); Potassium 3.0 mmol/L (3.5-5.1); Sodium 133 mmol/L (136-145)
[2024-12-16] MEDS: verapamil ER 240 mg Tablet PO (06:14)
[2024-12-16] MEDS: HYDROcodone-acetaminophen 5-325 mg Tablet 1 TAB PO (06:35)
--- NOTE | 2024-12-16 10:14 | P.PN_ITS ---
<Statement entered by Orlando Armstrong MD - 12/16/24 18:39> Patient was evaluated and cared for in conjunction with an advanced practice practitioner. I personally examined the patient and reviewed the chart and all pertinent data including imaging, telemetry, and laboratory results. I discussed the patient in detail with the advanced practice practitioner. Please see their note for complete H&P testing result and agreed upon plan of care for the patient. Subjective 2 Subjective: He has done well overnight. Coronary angiography formed yesterday did not show any disease in the left main, LAD, RCA or circumflex coronary arteries. He appears euvolemic. Vitals/I&O/Wt Last Vital Signs Temp 97.4 F L 12/16/24 08:00 Pulse 93 12/16/24 08:00 Resp 24 H 12/16/24 08:00 BP 145/91 12/16/24 08:00 Pulse Ox 92 12/16/24 08:00 O2 Del Method Room Air 12/16/24 08:00 12/15/24 12/16/24 12/16/24 22:59 06:59 14:59 Intake Total 1180 / 1620 200 / 1620 240 / 240 Output Total 900 / 2500 1600 / 2500 Balance 280 / -880 -1400 / -880 240 / 240 Weight last 48 hrs Weight 360 lb Weight 366 lb 6 oz Physical Exam 2 Const: COMMON NORMALS: no acute distress and patient oriented x3 GENERAL APPEARANCE: cooperative ORIENTATION/CONSCIOUSNESS: Yes awake, Yes oriented to person, Yes oriented to place and Yes oriented to time Chest: COMMONS NORMALS: normal inspection of the chest and normal palpation of entire chest wall CHEST: Yes Symmetrical chest wall rise Resp: COMMON NORMALS: normal respiratory effort, No retractions, No use of accessory muscles and clear to auscultation bilaterally AUSCULTATION: clear to auscultation bilaterally Cardio: COMMON NORMALS: regular rate, S1 normal heart sound present, S2 normal heart sound present, No gallops present (Cardio), No clicks present (Cardio), No murmurs present (Cardio) and No rub (Cardio) RATE: regular rate RHYTHM: a bnormal rhythm irregularly irregular HEART SOUNDS: S1 normal heart sound present and S2 normal heart sound present PERIPHERAL PULSES: radial pulses present positive right 2+ and femoral pulses present positive right 2+ Extremity: GENERAL: Yes edema (Trace edema bilateral lower extremities below the knee) Neuro: COMMON NORMALS: patient oriented x3 and moves all extremities S ENSORIUM/ORIENTATION: Yes oriented to person, Yes oriented to place and Yes oriented to time Skin: WOUNDS: Yes surgical site (no hematoma palpable) Details: no odor Data 12/16/24 02:50 12/16/24 02:50 A&P Assessment and plan 1. Diastolic heart failure: 2. Atrial fibrillation: 3. Hyperlipidemia: 4. Diabetes type 2, uncontrolled: 5. Morbid obesity with BMI of 60.0-69.9, adult: 6. CKD (chronic kidney disease) stage 3, GFR 30-59 ml/min: 7. Anemia: Plan: He is intolerant to Jardiance. Will recommend home medication regimen: Lasix 40 mg in the morning, 40 mg at 2 PM. Potassium 20 mEq twice a day. Metolazone 2.5 mg daily as needed for weight gain greater than 3 pounds in 24 hours, or 5 pounds in a week. He can resume Imdur, discontinue nitroglycerin paste. He has follow-up set up with cardiology clinic already. Continue hydralazine, Zetia, metoprolol, verapamil. May discharge home today if okay with hospitalist service. PDMP PDMP Reviewed: Not Reviewed Attestations 2 Medical Necessity Statement*: Possible DC Coding Level of Care Code Acute Code for [facility] Fwd Diagnoses Diastolic heart failure I50.30 Atrial fibrillation I48.91 Hyperlipidemia E78.5 Diabetes type 2, uncontrolled Morbid obesity with BMI of 60.0-69.9, adult E66.01; Z68.44 CKD (chronic kidney disease) stage 3, GFR 30-59 ml/min N18.30 Anemia D64.9
--- NOTE | 2024-12-16 11:09 | P.DS_ITS ---
Discharge Providers Date of Admission: 12/10/24 12:03 Date of Discharge: December 16, 2024 Attending Provider at Admission: Tara Younger MD Attending Provider at Discharge: Jimbo Cotton MD Consults: cardiology Primary Care Provider: Samantha Vinson DO Diagnoses at Discharge Discharge Diagnosis 1. Chronic diastolic heart failure: 2. Other persistent atrial fibrillation: 3. Hyperlipidemia: 4. Diabetes type 2, uncontrolled: 5. Morbid obesity with BMI of 60.0-69.9, adult: 6. CKD (chronic kidney disease) stage 3, GFR 30-59 ml/min: 7. Anemia: Reason for Visit Reason for Visit: chest pain Brief History: 69 year old male presenting with HFpEF w ith exacerbation, CP and afib. Hospital Course Hospital Course 1. Acute on Chronic diastolic heart failure (HFpEF): - several weeks of increasing shortness of breath, orthopnea and intermittent chest discomfort - B/L LE edema improving with diuresis - Trop series 16--18--19, no significant delta at 2 hrs of 6 hrs - cardiology recommending continuation of lasix 40 mg IV Q12H - cont. potassium replacement 20 mEq BID - cont. metolazone 2.5 mg PO daily PRN for increased weight gain - resume imdur, hydralazine, zetia, metoprolol, verapamil - does not tolerate Jardiance. - monitor I/O and renal function with initiation of diuresis - Echocardiogram with normal EF - follow up with cardiology as outpatient. 2. Other persistent atrial fibrillation: currently rate controlled - restarted Chronic Xarelto 3. Chest pain, unspecified type: Atypical chest pain EKG without acute ST-T changes Trop series without significant elevation or delta suspect chest discomfort to be related to acute on chronic CHF exacerbation - cath done 12/15 that was clear 4. Anemia: chronic, currently HB is well maintained 5. Seronegative rheumatoid arthritis: continue leflunomide cervicalgia - follow up with outpatient NS Umbilical hernia - reducible - asking for abdominal binder - follow up with surgery as outpatient, he was told previously that he needed to lose weight prior to surgical repair. Hypokalemia - replete PRN - getting 20 oral BID DMII - SSI - reduce home insulin to glargine 30 qHS, lispro 10 w/ meals - adjust as needed PPx: xarelto Disposition - Cardiology OK with discharge. Continue to follow as outpatient. Physical Exam Const: COMMON NORMALS: no acute distress and patient oriented x3 NUTRITIONAL APPEARANCE: obese HENMT: COMMON NORMALS: normocephalic and atraumatic HEAD & SCALP: normocephalic and atraumatic Eye: COMMON NORMALS: Equal, round and reactive pupils present PUPIL: Yes Equal, round and reactive pupils present Lymph: LYMPHATIC: no lymphedema noted Chest: COMMONS NORMALS: normal inspection of the chest Resp: COMMON NORMALS: normal respiratory effort and clear to auscultation bilaterally AUSCULTATION: clear to auscultation bilaterally Cardio: COMMON NORMALS: regular rate, regular rhythm, No gallops present (Cardio), No murmurs present (Cardio) and No rub (Cardio) RATE: regular rate RHYTHM: regular rhythm GI: COMMON NORMALS: Soft to palpation and non-tender PALPATION: Yes Soft to palpation Extremity: NARRATIVE EXTREMITY EXAM: BL LE edema, reduced and currently nonpitting. Neuro: COMMON NORMALS: patient oriented x3 and CN's II-XII intact bilaterally Discharge Data Studies Completed and Pending Completed Studies During Hospitalization Category Date Time Status CT head wo con* [id number] Stat Cat Scan 12/12/24 07:51 Completed CTA head neck [CT angio headneck* [id number]] Stat Cat Scan 12/12/24 08:03 Completed GASTROENTEROLOGY NURSE PRACTITIONER request for service Routine Exams 12/15/24 11:00 Completed XR chest 1V portable [id number] Stat Exams 12/10/24 09:36 Completed MR cervical spine wo [MR cervical spin wo con* [id number]] MRI 12/12/24 12:57 Completed Routine CV carotid duplex BI* [id number] Routine Ultrasound 12/10/24 17:24 Completed CV. echo wo/w contrast [id number] Routine Ultrasound 12/10/24 13:58 Completed Pending at discharge Category Date Time Status Potassium Timed Lab 12/16/24 14:00 Ordered Radiology Impressions Chest X-Ray 12/10/24 09:36 IMPRESSION: Stable findings. Carotid Doppler Study 12/10/24 17:24 IMPRESSION: No carotid arterial stenosis. REFERENCES: SRU CRITERIA. The degree of internal carotid artery stenosis is based on criteria defined by the Society of Radiologists in Ultrasound (SRU). Normal is no stenosis. Mild is less than 50% stenosis. Moderate is 50-69% stenosis. Severe is greater than 69% stenosis to near occlusion. Near occlusion is a markedly narrowed lumen. Total occlusion is no detectable patent lumen. Reference: Bobby Lee, et al. Carotid Artery Stenosis: Bernal-Scale and Doppler US Diagnosis-Society of Radiologists in Ultrasound Consensus Conference. Radiology 2003; 229:340-346. Head CT 12/12/24 07:51 IMPRESSION: 1. No acute intracranial hemorrhage or edema. 2. No sulcal effacement or acute infarct identified. 3. Very mild small vessel disease and atrophy. First attempt at contacting Tara Younger MD at 12/12/2024 8:16 AM. Unsuccessful. No return call from Tara Younger MD at 12/12/2024 8:32 AM. Unable to communicate stroke head CT report to Dr. Younger at this time. Head/Neck CTA 12/12/24 08:03 IMPRESSION: 1. No high-grade cervical carotid artery stenosis. 2. Swallowing motion artifact causing significant distortion of the soft tissues to the neck and larynx. 3. Very high-grade stenosis of versus occlusion involving the LEFT posterior cerebral artery, P2 and P3 segments. P4 segment is enhancing but very small caliber. 4. patent distal vertebral arteries. Have attempted to contact Dr. Younger with the report of the head CT and have not received a call back at this time, at 12/12/2024 8:31 AM. Cervical Spine MRI 12/12/24 12:57 IMPRESSION: 1. Prior postoperative changes ACDF C4-5. 2. Disc osteophyte complexes C3-C4 and C5-C6 with slight contact of the cervical cord. Mild central canal stenosis C5-6. 3. Cord signal is normal. 4. Bony foraminal narrowing moderate RIGHT C2-3, moderate to severe RIGHT C3-4, mild RIGHT C4-5, and moderate LEFT C5-6. 5. Mild to moderate LEFT C6-7 bony foraminal narrowing. Laboratory Results WBC 9.53 10^3/uL (3.29-11.43) 12/16/24 02:50 RBC 5.22 10^6/uL (3.85-5.65) 12/16/24 02:50 Hgb 14.40 g/dL (11.27-16.99) 12/16/24 02:50 Hct 44.1 % (37-53) 12/16/24 02:50 MCV 84.5 fl (82-101) 12/16/24 02:50 MCH 27.6 pg (27-33) 12/16/24 02:50 MCHC 32.7 g/dL (30-55) 12/16/24 02:50 RDW 13.9 % (12.1-15.1) 12/16/24 02:50 Plt Count 201 10^3/cmm (157-399) 12/16/24 02:50 MPV 10.3 fL (7.4-10.4) 12/16/24 02:50 Neut % (Auto) 67.7 % 12/16/24 02:50 Lymph % (Auto) 19.9 % 12/16/24 02:50 [place] % (Auto) 9.1 % 12/16/24 02:50 Eos % (Auto) 1.7 % 12/16/24 02:50 Baso % (Auto) 0.9 % 12/16/24 02:50 Neut # (Auto) 6.44 10^3/uL (1.8-7.7) 12/16/24 02:50 Lymph # (Auto) 1.9 10^3/uL (0.8-4.8) 12/16/24 02:50 [place] # (Auto) 0.9 10^3/uL (0.2-0.9) 12/16/24 02:50 Eos # (Auto) 0.2 10^3/uL (0.0-0.8) 12/16/24 02:50 Baso # (Auto) 0.1 10^3/uL (0.0-0.1) 12/16/24 02:50 Nucleated RBC % (auto) 0 % 12/16/24 02:50 Nucleated RBCs # 0.0 /100WBC 12/16/24 02:50 APTT 35.5 SECONDS (23.9-36.7) 12/10/24 14:39 Sodium 133 mmol/L (136-145) L 12/16/24 02:50 Potassium 3.0 mmol/L (3.5-5.1) L 12/16/24 02:50 Chloride 90 mmol/L (98-107) L 12/16/24 02:50 Carbon Dioxide 30 mmol/L (22-29) H 12/16/24 02:50 Anion Gap 16.0 (5-19) 12/16/24 02:50 BUN 37 mg/dL (8-23) H 12/16/24 02:50 Creatinine 1.5 mg/dL (0.7-1.2) H 12/16/24 02:50 GFR Calculation 46.4 mL/min (90-130) L 12/16/24 02:50 Glucose 245 mg/dL (65-115) H 12/16/24 02:50 POC Glucose 220 mg/dL (70-110) H 12/16/24 06:19 Calculated Osmolality 293 mOsm/kg (285-295) 12/16/24 02:50 Calcium 9.0 mg/dL (8.5-10.5) 12/16/24 02:50 Total Bilirubin 0.5 mg/dL (0.15-1.2) 12/15/24 05:23 AST 31 U/L (0-40) 12/15/24 05:23 ALT 27 U/L (0-41) 12/15/24 05:23 Alkaline Phosphatase 74 U/L (40-130) 12/15/24 05:23 Troponin T Baseline 19 ng/L (0-15) H 12/10/24 09:54 Troponin T 120 Minute 18.09 ng/L (0-15) H 12/10/24 11:54 Delta Troponin T -0.91 ABS# (0-10) L 12/10/24 11:54 Troponin T Hi Sens 6Hr 16.73 ng/L (0-15) H 12/10/24 15:00 Troponin T Hi Sens 6Hr Delta -2.27 ng/L (0-12) L 12/10/24 15:00 Total Protein 7.5 g/dL (6.6-8.7) 12/15/24 05:23 Albumin 4.2 g/dL (3.5-5.2) 12/15/24 05:23 Globulin 3.3 g/dL (1.3-4.6) 12/15/24 05:23 Vitals Last Vital Signs Temp 97.4 F L 12/16/24 08:00 Pulse 93 12/16/24 08:00 Resp 24 H 12/16/24 08:00 BP 145/91 12/16/24 08:00 Pulse Ox 92 12/16/24 08:00 O2 Del Method Room Air 12/16/24 08:00 Discharge Plan Discharge Patient Disposition: Home Condition: Stable Prescriptions: New aspirin 81 mg Tablet,Delayed Release (Dr/Ec) 81 mg PO DAILY Qty: 30 2RF potassium chloride [Klor-Con M20] 20 mEq Tablet,Er Particles/Crystals 20 meq PO BID Qty: 60 2RF metolazone 2.5 mg tablet 2.5 mg PO DAILY PRN (Reason: weight gain) Qty: 30 2RF Rx Instructions: Take for weight gain greater than 3 pounds in 24 hours, or 5 pounds in a week. hydralazine 25 mg Tablet 25 mg PO TID Qty: 90 2RF furosemide [Lasix] 40 mg tablet 20 mg PO BID Qty: 60 0RF Rx Instructions: Take in AM and at 2 PM Continued (DME) blood-glucose meter [Accu-Chek Guide Glucose Meter] Misc See Rx Instructions .ROUTE .MEDSUPPLY Qty: 1 0RF Rx Instructions: As directed (DME) lancets [Accu-Chek Fastclix Lancet Drum] Misc See Rx Instructions .ROUTE .MEDSUPPLY Qty: 200 3RF Rx Instructions: three times/day (DME) Diabetic shoes with molded inserts See Rx Instructions .Route .MEDSUPPLY Qty: 1 0RF Rx Instructions: As directed fenofibrate nanocrystallized 145 mg tablet 145 mg PO DAILY ergocalciferol (vitamin D2) 50,000 unit capsule 50,000 unit PO Q30D Rx Instructions: FIRST SUNDAY OF THE MONTH (DME) pen needle, diabetic 31 gauge x 1/4 needle See Rx Instructions .Route Qty: 100 3RF Rx Instructions: As directed (DME) Diabetic shoes with 3 pairs of inserts See Rx Instructions .Route .MEDSUPPLY Qty: 1 0RF Rx Instructions: As directed (DME) Diabetic shoes See Rx Instructions .ROUTE .MEDSUPPLY Qty: 1 0RF Rx Instructions: With 3 pairs of inserts made by HOME ketoconazole 2 % shampoo See Rx Instructions .ROUTE .COMPLEX Rx Instructions: Apply to scalp 2 or 3 times weekly, let sit 5 minutes, then rinse. prednisone 10 mg tablet See Rx Instructions PO .COMPLEX PRN (Reason: joint pain) Qty: 30 1RF Rx Instructions: Take 1 tablet by mouth daily for 3-7 days as needed for joint pain flare. magnesium chelate, malate 125 mg magnesium capsule 125 mg PO BID psyllium husk [Fiber (psyllium husk)] 0.52 gram capsule 0.52 g PO BID acyclovir 5 % ointment 1 applic topical 6XD PRN (Reason: fever blisters and rash areas) acetaminophen [Tylenol Arthritis Pain] 650 mg tablet extended release 650 mg PO Q12H Mounjaro 12.5 mg/0.5 mL pen injector 12.5 mg SUBCUT Q7D (DME) Diabetic shoes with inserts See Rx Instructions .Route .MEDSUPPLY Qty: 1 0RF Rx Instructions: As directed (DME) pen needle, diabetic [BD Gabriella 2nd Gen Pen Needle] 32 gauge x 5/32 needle See Rx Instructions .Route Qty: 100 3RF Rx Instructions: As directed (DME) FreeStyle Huma 2 [place] Misc See Rx Instructions .Route Qty: 1 0RF Rx Instructions: Check BS 4 -6 times a day. ([facility]) FreeStyle Huma 2 Sensor Kit See Rx Instructions .Route Qty: 6 3RF Rx Instructions: Change every 14 days. nitroglycerin [Nitrostat] 0.4 mg tablet, sublingual 0.4 mg SUBLINGUAL DIRECTED PRN (Reason: CHEST PAIN) Qty: 25 2RF (DME) Accu-Chek Guide test strips Strip See Rx Instructions .ROUTE .COMPLEX Qty: 300 0RF Dose Instruction: USE 1 THREE TIMES DAILY *E11.65* Rx Instructions: USE 1 THREE TIMES DAILY *E11.65* metoprolol tartrate 50 mg tablet 100 mg PO BID Qty: 240 3RF eplerenone 25 mg tablet 25 mg PO DAILY Qty: 90 3RF triamcinolone acetonide 0.1 % cream 1 applic topical BID PRN (Reason: joint inflamation) diclofenac sodium 1 % gel 4 g topical QID PRN (Reason: Pain, Mild) Rx Instructions: 4 grams topically 4 times daily as needed ketoconazole 2 % cream See Rx Instructions .ROUTE .COMPLEX Rx Instructions: APPLY TWICE DAILY TO AFFECTED AREAS ON FACE FOR 4 WEEKS THEN NEEDED. insulin glargine U-300 conc [Toujeo Max U-300 SoloStar] 300 unit/mL (3 mL) insulin pen 60 unit SUBCUT QAM isosorbide mononitrate 30 mg tablet extended release 24 hr 60 mg PO DAILY allopurinol 100 mg tablet 200 mg PO QPM leflunomide 20 mg tablet 20 mg PO QAM verapamil 240 mg tablet extended release 240 mg PO QAM insulin lispro 100 unit/mL insulin pen 50 unit SUBCUT TID ezetimibe 10 mg tablet 10 mg PO DAILY insulin glargine [Lantus Solostar U-100 Insulin] 100 unit/mL (3 mL) insulin pen 60 unit SUBCUT DAILY Xarelto 20 mg tablet 20 mg PO QAM Discontinued bumetanide 1 mg tablet See Rx Instructions .ROUTE .COMPLEX Qty: 120 3RF Dose Instruction: TAKE 2 TABLETS BY MOUTH IN THE MORNING AND 1 AT 2PM Rx Instructions: TAKE 2 TABLETS BY MOUTH IN THE MORNING AND 2 TABLETS BY MOUTH IN THE AFTERNOON Discharge Order = DC NOW: Discharge Order (Routine); Ordered 12/16/24 Ordered By: Jimbo Cotton Other Ambulatory Orders: DME: Miscellaneous (Order) Location: None Selected Ordered By: Jimbo Cotton Referrals: Mallory Lees NP [Nurse Practitioner, Cardiology] - 12/24/24 8:00 am Jun Brooks DO [Physician, Orthopedics] - 12/30/24 3:00 pm Referral Note: 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 Doctor will review patient records and decide to take them on as a patient, records were faxed by Discharge Diet: Advance as tolerated Discharge Activity: Resume usual activity Patient Instructions: Opioid Safety, Patient Portal & Jamey Instructions Discharge Attestations Time Spent in Discharge Care*: greater than 30 min Specific Discharge Activities: educating patient, educating and/or supporting family/caregiver, discussing with pcp/other providers, discussing with human services case manager/social workers/dc planners, documenting/other paperwork and evaluating patient/reviewing data Quality Metrics Clinical Quality Measures [ No reported AMI, CVA or VTE this stay] Coding Level of Care Code Acute Code for Chg Fwd Diagnoses Chronic diastolic heart failure I50.30 Other persistent atrial fibrillation I48.20 Atrial fibrillation type: unspecified chronic Hyperlipidemia E78.5 Diabetes type 2, uncontrolled Morbid obesity with BMI of 60.0-69.9, adult E66.01; Z68.44 CKD (chronic kidney disease) stage 3, GFR 30-59 ml/min N18.3 Anemia D64.9
[2024-12-16] MEDS: nitroglycerin 1 gm/inch oint Pkt 1 INCH TOPICAL (12:16)
--- NOTE | 2024-12-16 13:22 | PC.NURSE ---
Patient was given all discharge instructions. Prescriptions were sent to the preferred pharmacy. Iv was taken out and patient was stable during discharge.
== END 2024-12-16 13:02 | disposition home health service (06) | DRG 286 ==
LOC: ER 12:08 → CSU 12:40
PROVIDERS: Internal Medicine Cardiovascular Disease; Nurse Practitioner Family; Admitting Provider Student in an Organized Health Care Education/Training Program; Emergency Provider Family Medicine; PCP Family Medicine; Visit Provider Internal Medicine
PROC: 4A023N7 Measurement of Cardiac Sampling and Pressure, Left Heart, Percutaneous Approach (ICD-10-PCS; principal; 2024-12-15 11:00)
DX: I13.0 Hypertensive heart and chronic kidney disease with heart failure and stage 1 through stage 4 chronic kidney disease, or unspecified chronic kidney disease (principal); I50.33 Acute on chronic diastolic (congestive) heart failure; N17.9 Acute kidney failure, unspecified; I48.19 Other persistent atrial fibrillation; Z68.43 Body mass index [BMI] 50.0-59.9, adult; E11.22 Type 2 diabetes mellitus with diabetic chronic kidney disease; N18.30 Chronic kidney disease, stage 3 unspecified; Z79.4 Long term (current) use of insulin; Z79.85 Long-term (current) use of injectable non-insulin antidiabetic drugs; Z79.01 Long term (current) use of anticoagulants; E78.2 Mixed hyperlipidemia; E66.01 Morbid (severe) obesity due to excess calories; D64.89 Other specified anemias; M06.00 Rheumatoid arthritis without rheumatoid factor, unspecified site; M48.02 Spinal stenosis, cervical region; K42.9 Umbilical hernia without obstruction or gangrene; E87.6 Hypokalemia; M10.9 Gout, unspecified; E55.9 Vitamin D deficiency, unspecified; G47.33 Obstructive sleep apnea (adult) (pediatric); I20.0 Unstable angina
CPT/HCPCS: 36415; 36416; 70450; 70496; 70498; 71045; 72141; 80048; 80053; 82962; 84484; 85025; 85730; 90471; 90732; 93005; 93454; 93880; 96372; 97161; 99152; 99153; 99285; C1769; C1887; C1894; C8929; J0360; J1200; J1644; J1815; J1938; J2250; J2270; J3010; J3490; J7030; J9999; Q9967

== ENCOUNTER → 2024-12-22 13:56 | Outpatient (BNVA) | payer OTHER, SELFPAY | PROVIDERS: PCP Family Medicine; Visit Provider Nurse Practitioner Family | DX: I78.8 Other diseases of capillaries (principal); L82.1 Other seborrheic keratosis; L57.8 Other skin changes due to chronic exposure to nonionizing radiation; D18.01 Hemangioma of skin and subcutaneous tissue; I87.2 Venous insufficiency (chronic) (peripheral); Z08 Encounter for follow-up examination after completed treatment for malignant neoplasm; Z85.828 Personal history of other malignant neoplasm of skin; L91.8 Other hypertrophic disorders of the skin; R20.8 Other disturbances of skin sensation; L57.0 Actinic keratosis | CPT/HCPCS: 17000; 17110; 99213 ==

== ENCOUNTER → 2024-12-30 13:49 | Outpatient (BNVA) | payer OTHER, SELFPAY | PROVIDERS: PCP Family Medicine; Visit Provider Orthopaedic Surgery | DX: M47.814 Spondylosis without myelopathy or radiculopathy, thoracic region (principal); M51.34 Other intervertebral disc degeneration, thoracic region; M54.2 Cervicalgia; Z09 Encounter for follow-up examination after completed treatment for conditions other than malignant neoplasm | CPT/HCPCS: 72050; 72072; 99203 ==

== ENCOUNTER 2024-12-31 10:28 | Oncology outpatient (recurring) (ONCR) | payer OTHER, SELFPAY ==
[2024-12-10 09:12] LABS: Hematocrit 44.2 % (37-53); Hemoglobin 14.10 g/dL (11.27-16.99); Mean Corpuscular HGB Conc 31.9 g/dL (30-55); Mean Corpuscular Hemoglobin 27.4 pg (27-33); Mean Corpuscular Volume 86.0 fl (82-101); Nucleated Red Blood Cells % 0 %; Platelet Count 197 10^3/cmm (157-399); Red Blood Count 5.14 10^6/uL (3.85-5.65); White Blood Count 7.62 10^3/uL (3.29-11.43)
[2024-12-10 09:38] LABS: Alanine Aminotransferase 27 U/L (0-41); Albumin Level 4.0 g/dL (3.5-5.2); Alkaline Phosphatase 62 U/L (40-130); Anion Gap 16.0 (5-19); Aspartate Amino Transferase 30 U/L (0-40); Blood Urea Nitrogen 18 mg/dL (8-23); Calcium 9.0 mg/dL (8.5-10.5); Carbon Dioxide 30 mmol/L (22-29); Chloride 102 mmol/L (98-107); Creatinine Clr Calc Pharmacy 92.7993; Ferritin 111 ng/mL (30-400); Globulin 2.8 g/dL (1.3-4.6); Glucose 147 mg/dL (65-115); Iron 83 ug/dL (59-158); Osmolality Calculated 303 mOsm/kg (285-295); Potassium 4.0 mmol/L (3.5-5.1); Sodium 144 mmol/L (136-145); Total Iron Binding Capacity 402 mcg/dl; Total Protein 6.8 g/dL (6.6-8.7); Unsaturated Iron Binding 319 ug/dL (112-347)
[2024-12-10 09:40] LABS: Calcium 9.0 mg/dL (8.5-10.5)
[2024-12-10 10:18] LABS: Creatinine Urine, Random 131 mg/dL (39-259); Microalbum Creatinine Ratio Ur 8 mg/dL (0-20)
== END 2025-01-04 23:59 | disposition home or self-care (01) ==
PROVIDERS: Registered Nurse; PCP Family Medicine; Visit Provider Internal Medicine
DX: D50.8 Other iron deficiency anemias (principal)
CPT/HCPCS: 36415; 80053; 80069; 82044; 82310; 82728; 83010; 83540; 83550; 83615; 83970; 85025; 85045; 99213

== ENCOUNTER → 2025-01-01 12:40 | Outpatient (BNVA) | payer OTHER, SELFPAY | PROVIDERS: PCP Family Medicine; Visit Provider Internal Medicine Cardiovascular Disease | DX: I50.30 Unspecified diastolic (congestive) heart failure (principal); I48.91 Unspecified atrial fibrillation; I71.20 Thoracic aortic aneurysm, without rupture, unspecified; I25.10 Atherosclerotic heart disease of native coronary artery without angina pectoris; Z79.01 Long term (current) use of anticoagulants; Z79.82 Long term (current) use of aspirin; Z98.61 Coronary angioplasty status | CPT/HCPCS: 99214 ==

== ENCOUNTER → 2025-01-06 14:00 | Outpatient (BNVA) | payer OTHER, SELFPAY | PROVIDERS: PCP Family Medicine; Visit Provider Nurse Practitioner Family | DX: L82.1 Other seborrheic keratosis (principal); L57.8 Other skin changes due to chronic exposure to nonionizing radiation; X32.XXXA Exposure to sunlight, initial encounter; D18.01 Hemangioma of skin and subcutaneous tissue; L81.4 Other melanin hyperpigmentation; L91.8 Other hypertrophic disorders of the skin; Z08 Encounter for follow-up examination after completed treatment for malignant neoplasm; Z85.828 Personal history of other malignant neoplasm of skin; D48.5 Neoplasm of uncertain behavior of skin | CPT/HCPCS: 11102; 99213 ==

== ENCOUNTER → 2025-01-07 07:57 | Outpatient (BNVA) | payer OTHER, SELFPAY | PROVIDERS: PCP Family Medicine; Visit Provider Nurse Practitioner Family | DX: M54.2 Cervicalgia (principal) | CPT/HCPCS: 99214 ==

== ENCOUNTER 2025-01-09 12:41 | Emergency (ER) | payer OTHER, SELFPAY ==
[2025-01-09 12:47] VITALS: PULSE 93; O2SAT 93
--- NOTE | 2025-01-09 12:48 | ECG_ITS ---
[facility] Date: 2025-01-09 Pat Name: Mauro Solis Department: Room: Gender: Male Supervisor Pig Machine: : [id number] Requested By: Bharti Abdalla Order Number: [id number] Sandi MD: Robb Banegas M.D. Measurements Intervals [place] Rate: 98 P: 0 [place]: 0 QRS: -63 QRSD: 116 T: 83 QT: 361 QTc: 462 Interpretive Statements ATRIAL FIBRILLATION LEFT AXIS DEVIATION [QRS AXIS < -30] RIGHT BUNDLE BRANCH BLOCK [120+ ms QRS DURATION, UPRIGHT V1, 40+ ms S IN I/aVL/V4/V5/V6] INTERPRETATION BASED ON A DEFAULT AGE OF 40 YEARS Compared to ECG 12/14/2024 10:32:29 Right bundle-branch block now present Intraventricular conduction delay no longer present T-wave abnormality no longer present Electronically Signed On 01-09-2025 20:19:52 CDT by Robb Banegas M.D. [id number]
--- OUTSIDE RECORDS SUMMARY | 2025-01-09 12:50 | XMS_ITS | Encounter Summary ---
Author Organization [facility] Address [address] Attn: Epic Prelude ADT [place] [address] Care Team Providers Care Motion Study Engineer Name Role Phone Unavailable Primary Care Provider Unavailabl e Encounter Details Date Type Department Care Team (Late st Contact Info) Description 02/18/2002 Outpatient Historical Fabrizio Cuello MD [address] [place] [address] [address] [place] [address] Social History Tobacco Use Types Packs/Day Years Used Date Smoking Tobacco: Never Assessed Sex and Gender Information Value Date Recorded Sex Assigned at Not on file Legal Sex Male 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
--- OUTSIDE RECORDS SUMMARY | 2025-01-09 12:50 | XMS_ITS | Encounter Summary ---
Author Organization [facility] Address [address] [facility] Attn: Epic Prelude ADT [place] M[place] [address] Care Team Providers Care Compressor Station Chief Engineer Name Role Phone Unavailable Primary Care Provider Unavailabl e Encounter Details Date Type Department Care Team (Late st Contact Info) Description 11/30/2000 Outpatient Historical Fabrizio Cuello MD [address] [place] [address] [address] [place] [address] Social History Tobacco Use Types Packs/Day Years Used Date Smoking Tobacco: Never Assessed Sex and Gender Information Value Date Recorded Sex Assigned at Not on file 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
--- OUTSIDE RECORDS SUMMARY | 2025-01-09 12:50 | XMS_ITS | Encounter Summary ---
Author Organization [facility] Address [address] [facility] [address] [place] [address] Phone Care Team Providers Care Sailing Master Name Role Phone Samantha Vinson Primary Care Provider [phone] Reason for Visit * Reason Comments Med Refill Encounter Details Date Type Department Care Team (Late st Contact Info) Description 06/07/2021 Refill [facility] [address] [place] [address] Duran Chinchilla MD [address] [facility] [address] [place] [address] Social History Tobacco Use Types [...] Care Team (Late st Contact Info) Description 06/29/2025 10:30 AM PHYSICIAN PRACTICE MARKET MANAGER Office Visit [facility], [facility] [address] [place] [address] Jessica Albert NP [address] [facility] [address] [place] [phone] documented as of this encounter Visit Diagnoses Not on filedocumented in this encounter Care Teams Sailing Master Relationship Specialty Start Date End Date KarelSamantha [address] [place] [address] PCP - General 12/30/24 documented as of this encounter
--- OUTSIDE RECORDS SUMMARY | 2025-01-09 12:50 | XMS_ITS | Encounter Summary ---
Author Organization [facility] Address [address] [facility] [address] [place] [address] Phone Care Team Providers Care Embossed Or Impressed Lettering Painter Name Role Phone Samantha Vinson Primary Care Provider [phone] Reason for Visit * Reason Comments Med Refill Encounter Details Date Type Department Care Team (Late st Contact Info) Description 12/09/2019 Refill [facility] [address] [place] [address] Santy Arnold, PATRICIA [address] [facility] [address] [place] [address] Social History Tobacco Use Types [...] st Contact Info) Description 06/29/2025 10:30 AM JIG BORE OPERATOR Office Visit [facility], [facility] [address] [place] [phone] Jessica Albert NP [address] [facility] [address] [place] [phone] documented as of this encounter Visit Diagnoses Not on filedocumented in this encounter Care Teams Embossed Or Impressed Lettering Painter Relationship Specialty Start Date End Date Samantha Vinson [address] [place] [address] PCP - General 12/30/24 documented as of this encounter
--- OUTSIDE RECORDS SUMMARY | 2025-01-09 12:50 | XMS_ITS | Encounter Summary ---
Author Organization [facility] Address [address] [facility] Attn: Epic Prelude ADT [place] [address] Care Team Providers Care Behavior Specialist Name Role Phone Unavailable Primary Care Provider Unavailabl e Encounter Details Date Type Department Care Team (Late st Contact Info) Description 12/06/2000 Inpatient Historical Fabrizio Cuello MD [address] [place] [address] [address] [place] [address] Social History Tobacco Use Types Packs/Day Years Used Date Smoking Tobacco: Never Assessed Sex and Gender Information Value Date Recorded Sex Assigned at Not on file 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
--- OUTSIDE RECORDS SUMMARY | 2025-01-09 12:51 | XMS_ITS | Encounter Summary ---
Author Organization [facility] Address [address] [place] [address] Phone Care Team Providers Care Freight Broker Name Role Phone Samantha Vinson Primary Care Provider [phone] Encounter Details Date Type Department Care Team (Late Contact Info) Description 03/27/2019 Orders Only [facility] [address] [place] [address] Victor Manuel Calderon NP Chronic kidney disease stage 3 (HCC) Social [...] Department Care Team (Late Contact Info) Description 06/29/2025 10:30 AM DICTAPHONE TECHNICIAN Office Visit [facility] [address] [place] [phone] Jessica Albert NP [address] [facility] [address] [place] [phone] documented as of this encounter Procedures Procedure [...] procedure / Unknown 03/24/2019 Victor Manuel Calderon PRIVATE MORTGAGE BANKER SAFE LAB URINE ORDERABLES Final Result Performing Organization Address [facility] Co de Phone Number [facility] * [...] blood / Unknown 03/24/2019 Victor Manuel Calderon PRIVATE MORTGAGE BANKER SAFE LAB BLOOD ORDERABLES Final Result Performing Organization Address City/[facility]/ZIP Co de Phone Number [facility] * [...] / Unknown 03/24/2019 us Victor Manuel Calderon PRIVATE MORTGAGE BANKER SAFE LAB BLOOD ORDERABLES Final Result [facility] documented in this encounter Visit Diagnoses Diagnosis Chronic kidney disease stage 3 (HCC) documented in this encounter Care Teams Freight Broker Relationship Specialty Start Date End Date Smaantha Vinson [address] [place] [id number] PCP - General 12/30/24 documented as of this encounter
--- OUTSIDE RECORDS SUMMARY | 2025-01-09 12:51 | XMS_ITS | Encounter Summary ---
Author Organization [facility] Address [address] [facility] Attn: Epic Prelude ADT [place] [address] Care Team Providers Care Marzipan Molder Name Role Phone Unavailable Primary Care Provider Unavailabl e Encounter Details Date Type Department Care Team (Late st Contact Info) Description 02/24/2002 Outpatient Historical Fabrizio Cuello MD [address] [place] [address] [address] [place] [address] Social History Tobacco Use Types Packs/Day Years Used Date Smoking Tobacco: Never Assessed Sex and Gender Information Value Date Recorded Sex Assigned at Not on file Legal Sex Male 4:10 AM 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
--- OUTSIDE RECORDS SUMMARY | 2025-01-09 12:51 | XMS_ITS | Clinical Summary ---
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
--- OUTSIDE RECORDS SUMMARY | 2025-01-09 12:51 | XMS_ITS | Encounter Summary ---
Author Organization [facility] Address [address] [facility] [address] [place] [address] Phone Care Team Providers Care Cashier Wrapper Name Role Phone Samantha Vinson Primary Care Provider [phone] Reason for Visit * Reason Comments Med Refill Encounter Details Date Type Department Care Team (Late st Contact Info) Description 06/07/2020 Refill [facility] [address] [place] [address] Jessica Albert NP [address] [facility] [address] [place] [address] Social History Tobacco Use Types [...] st Contact Info) Description 06/29/2025 10:30 AM VP RESPIRATORY Office Visit [facility], [facility] [address] [place] [address] Jessica Albert, PATRICIA [address] [facility] [address] [place] [phone] documented as of this encounter Visit Diagnoses Not on filedocumented in this encounter Care Teams Cashier Wrapper Relationship Specialty Start Date End Date KarelSamantha [address] [place], [place] [id number] PCP - General 12/30/24 documented as of this encounter
--- OUTSIDE RECORDS SUMMARY | 2025-01-09 12:51 | XMS_ITS | Encounter Summary ---
Author Organization [facility] Address [address] [place] [address] Phone Care Team Providers Care Co Founder & Ceo Name Role Phone Samantha Vinson Primary Care Provider [phone] Reason for Visit * Reason Comments Med Refill Encounter Details Date Type Department Care Team (Late st Contact Info) Description 03/17/2019 Refill [facility] [address] [place] [address] Victor Manuel Calderon NP Social History Tobacco Use Types Packs/Day Years [...] (Late Contact Info) Description 06/29/2025 10:30 AM COOK HELPER PRESERVES Office Visit [facility] [address] [place] [phone] Jessica Albert, PATRICIA [address] [facility] [address] [place] [phone] documented as of this encounter Visit Diagnoses Not on filedocumented in this encounter Care Teams Co Founder & Ceo Relationship Specialty Start Date End Date Samantha Vinson [address] [place], [place] [id number] PCP - General 12/30/24 documented as of this encounter
--- OUTSIDE RECORDS SUMMARY | 2025-01-09 12:51 | XMS_ITS | Clinical Summary ---
Author Organization [facility] Address [address] [place] [address], [place] [address] Care Team Providers Care Fabrication And Assembly Supervisor Name Role Phone Samantha Vinson Primary Care Provider [phone] Allergies Active Allergy Reactions Criticality Noted Date [...] mouth if needed Active ergocalciferol 1.25 MG (30221 UT) capsule TAKE 1 CAPSULE BY MOUTH [...] and 325 mg in the evening. Active Aspirin Low Dose 81 MG EC tablet Take 81 mg by mouth 1 (one) time each day Active furosemide (LASIX) 40 MG tablet Take 20 mg by mouth in the morning and 20 mg in the evening. 5 Active hydrALAZINE 25 MG tablet Take 25 mg by mouth in the morning and 25 mg at noon and 25 mg in the evening. 5 Active metOLazone 2.5 MG tablet 2.5 mg TAKE 1 TABLET BY MOUTH ONCE DAILY NEEDED FOR WEIGHT GAIN; TAKE FOR WEIGHT GAIN GREATER THAN 3 POUNDS IN 24 HOURS, OR 5 POUNDS IN A WEEK 5 Active potassium chloride (KLOR-CON M20) 20 MEQ CR tablet Take 20 mEq by mouth in the morning and 20 mEq in the evening. 5 Active Magnesium 400 MG tablet Take 1 tablet by mouth 1 (one) time each day Active psyllium (METAMUCIL) 58.6 % packet Take 1 packet by mouth 1 (one) time each day Active Active Problems Problem Noted Date Diagnosed Date Chronic kidney disease stage 3 09/24/2018 Essential (primary) hypertension 09/24/2018 Type 2 diabetes mellitus without complication Atrial fibrillation 09/24/2018 Vitamin D below reference range 09/24/2018 Encounters Date Type Department Care Team Description 12/30/2024 10:20 AM CDT Office Visit [facility] [address] [place] [phone] Mindy Estrada MD Chronic kidney disease stage 3A (HCC) (Primary Dx); Hypertensive chronic kidney disease with stage 1 through stage 4 chronic kidney disease, or unspecified chronic kidney disease; Type 2 diabetes mellitus with diabetic chronic kidney disease (HCC) 12/30/2024 Documentation Only [facility] [address] [place] [phone] Jinny Deal 12/30/2024 Documentation Only [facility] [address] [place] [address] Camasse, Jinyn 12/30/2024 Documentation Only [facility] [address] [place] [address] Camasse, Jinny 12/30/2024 Documentation Only [facility] [address] [place] [address] Camasse, Jinny 12/30/2024 Documentation Only [facility] [address] [place] [address] Camasse, Jinny 12/24/2024 Telephone [facility] [address] [place] [address] Belia Duncan MA 12/15/2024 Telephone [facility], [facility] [address] [place] [address] Mindy Estrada MD 12/10/2024 Documentation Only [facility] [address] [place] [address] Belia Duncan MA 12/10/2024 Documentation Only [facility] [address] [place] [phone] Belia Duncan MA 12/09/2024 Documentation Only [facility] [address] [place] [phone] Belia Duncan MA 12/09/2024 Telephone [facility], [facility] [address] [place] [address] Belia Duncan MA from Last 3 Months [...] Sign Reading Time Taken Comments Blood Pressure 128/84 12/30/2024 10:41 AM CDT Pulse 96 12/30/2024 10:41 AM CDT Temperature 36.1 C (97 F) 05/27/2020 9:50 AM HARDWARE DEVELOPER Respiratory Rate - - Oxygen Saturation 94% 12/30/2024 10:41 AM CDT Inhaled Oxygen Concentration - - Weight 169 kg (372 lb 3.2 oz) 12/30/2024 10:41 A M CDT Height 175.3 cm (5' 9 ) 12/30/2024 10:41 AM CDT Body Mass Index 54.96 12/30/2024 10:41 AM CDT Plan of Treatment Upcoming Encounters Date Type Department Care Team (Late st Contact Info) Description 06/29/2025 10:30 AM HARDWARE DEVELOPER Office Visit [facility], [facility] [address] [place] [address] Jessica Albert NP [address] [facility] [address] [place] [address] Health Maintenance Due Date Last [...] Procedure Name Priority Date/Time Associated Diagnosis Comments CBC (INCLUDES DIFF/PLT) (EXTERNAL LAB ENTRY) Routine 12/16/2024 2:50 AM CDT COMPREHENSIVE METABOLIC PANEL (CMP) (EXTERNAL LAB ENTRY) Routine 12/16/2024 2:50 AM CDT PTH, INTACT Routine 12/10/2024 Chronic kidney disease stage 3A (HCC) Hypertensive chronic kidney disease with stage 1 through stage 4 chronic kidney disease, or unspecified chronic kidney disease Type 2 diabetes mellitus with diabetic chronic kidney disease (HCC) URINE ALBUMIN / CREATININE RATIO Routine 12/10/2024 Chronic kidney disease stage 3A (HCC) Hypertensive chronic kidney disease with stage 1 through stage 4 chronic kidney disease, or unspecified chronic kidney disease Type 2 diabetes mellitus with diabetic chronic kidney disease (HCC) RENAL FUNCTION PANEL Routine 12/10/2024 Chronic kidney disease stage 3A (HCC) Hypertensive chronic kidney disease with stage 1 through stage 4 chronic kidney disease, or unspecified chronic kidney disease Type 2 diabetes mellitus with diabetic chronic kidney disease (HCC) CBC Routine 12/10/2024 Chronic kidney disease stage 3A (HCC) Hypertensive chronic kidney disease with stage 1 through stage 4 chronic kidney disease, or unspecified chronic kidney disease Type 2 diabetes mellitus with diabetic chronic kidney disease (HCC) HEMOGLOBIN A1C (EXTERNAL RESULT ENTRY) Routine 11/08/2021 8:09 AM CDT from Last 3 Months or Most Recently Relevant to Health Maintenance Results * Comprehensive Metabolic Panel (CMP) (12/16/2024 2:50 AM CDT) Glucose 245 mg/dL BUN 37 mg/dL Creatinine 1.5 mg/dL Sodium 133 mEq/L Potassium 3.0 mEq/L Chloride 90 Carbon Dioxide 30 mmol/L Calcium 9.0 mg/dL Albumin (Blood) 4.2 g/dL Phosphorus, Serum 1.7 mg/dL AST (SGOT) 31 U/L ALT (SGPT) 27 U/L Alkaline Phosphatase 74 U/L Total Bilirubin 0.50 MG/DL eGFR Non-Afr Sudanese 46.4 Total Protein, Serum 7.5 Blood 12/16/2024 2:50 AM CDT Aps External Provider LAB BLOOD ORDERABLES Final Result * CBC (Includes Diff/Plt) (External Lab) (12/16/2024 2:50 AM CDT) WBC 9.53 K/uL Red Blood Cell Count 5.22 Hemoglobin 14.40 g/dL Hematocrit 44.1 % MCV 84.5 MCH 27.6 MCHC 32.7 RDW 13.8 Platelet Count 201 MPV 10.3 Absolute Neutrophils 6.44 Absolute Lymphocytes 1.9 Absolute Monocytes 0.9 Absolute Eosinophils 0.2 Absolute Basophils 0.1 Neutrophils 67.7 K/uL Lymphocytes 19.9 Monocytes 9.1 Eosinophils 1.7 Basophils 0.9 Blood 12/16/2024 2:50 AM CDT [facility] External Provider LAB BLOOD ORDERABLES Final Result * Urine Albumin / Creatinine Ratio (12/10/2024) Urine Urine specimen obtained by clean catch procedure / Unknown 12/10/2024 Mnidy Estrada MD LAB URINE ORDERABLES Edited R esult - Final PRINT/EXTERNAL (NON-INTERFACED LABS) * CBC (12/10/2024) WBC 7.62 K/uL PRINT/EXTE RNAL (NON-INTERFACE D LABS) Red Blood Cell Count 5.14 PRINT/EXTERNAL (NON-INTERFACE D LABS) Hemoglobin 14.10 g/dL PRINT/EXT ERNAL (NON-INTERFACE D LABS) Hematocrit 44.2 % PRINT/EXT ERNAL (NON-INTERFACE D LABS) MCV 86.0 PRINT/EXTE RNAL (NON-INTERFACE D LABS) MCH 27.4 PRINT/EXTE RNAL (NON-INTERFACE D LABS) MCHC 31.9 PRINT/EXTE RNAL (NON-INTERFACE D LABS) RDW 14.1 PRINT/EXTE RNAL (NON-INTERFACE D LABS) Platelet Count 197 PRINT /EXTERNAL (NON-INTERFACE D LABS) MPV 9.9 PRINT/EXTE RNAL (NON-INTERFACE D LABS) Absolute Neutrophils 5.53 PRINT/EXTERNAL (NON-INTERFACE D LABS) Absolute Lymphocytes 1.3 PRINT/EXTERNAL (NON-INTERFACE D LABS) Absolute Monocytes 0.6 PRINT/EXTERNAL (NON-INTERFACE D LABS) Absolute Eosinophils 0.1 PRINT/EXTERNAL (NON-INTERFACE D LABS) Absolute Basophils 0.1 PRINT/EXTERNAL (NON-INTERFACE D LABS) Neutrophils 72.6 K/uL PRINT/EX TERNAL (NON-INTERFACE D LABS) Lymphocytes 16.7 PRINT/EX TERNAL (NON-INTERFACE D LABS) Monocytes 8.0 PRINT/EXTE RNAL (NON-INTERFACE D LABS) Eosinophils 1.3 PRINT/EX TERNAL (NON-INTERFACE D LABS) Basophils 0.9 PRINT/EXTE RNAL (NON-INTERFACE D LABS) Blood Venous blood / Unknown 12/10/2024 us Mindy Estrada MD LAB BLOOD ORDERABLES Final Re sult PRINT/EXTERNAL (NON-INTERFACED LABS) * PTH, Intact (12/10/2024) Parathyroid Hormone, Intact 74.2 pg/mL PRINT/TRADING MANAGER AL (NON-INTERFACE D LABS) Blood Venous blood / Unknown 12/10/2024 Narrative PRINT/EXTERNAL (NON-INTERFACED LABS) - 12/10/2024 10:28 AM CDT [facility] [address] [place] [id number] Khai Hansen, Manager Produce Mindy Estrada MD LAB BLOOD ORDERABLES Final Re sult PRINT/EXTERNAL (NON-INTERFACED LABS) * Renal Function Panel (12/10/2024) Glucose 147 mg/dL PRINT/EXTE RNAL (NON-INTERFACE D LABS) BUN 18 mg/dL PRINT/EXTE RNAL (NON-INTERFACE D LABS) Creatinine 1.2 mg/dL PRINT/EXT ERNAL (NON-INTERFACE D LABS) Sodium 144 mEq/L PRINT/EXTE RNAL (NON-INTERFACE D LABS) Potassium 4.0 mEq/L PRINT/EXTE RNAL (NON-INTERFACE D LABS) Chloride 102 PRINT/EXTE RNAL (NON-INTERFACE D LABS) Carbon Dioxide 30 mmol/L PRINT /EXTERNAL (NON-INTERFACE D LABS) Calcium 9.0 mg/dL PRINT/EXTE RNAL (NON-INTERFACE D LABS) Phosphorus, Serum 1.7 mg/dL PRINT/EXTERNAL (NON-INTERFACE D LABS) Albumin (Blood) 4.0 g/dL PRIN T/EXTERNAL (NON-INTERFACE D LABS) eGFR 60.0 PRINT/EXTE RNAL (NON-INTERFACE D LABS) Protein, Total 6.8 PRINT /EXTERNAL (NON-INTERFACE D LABS) Blood Venous blood / Unknown 12/10/2024 Narrative PRINT/EXTERNAL (NON-INTERFACED LABS) - 12/10/2024 10:36 AM CDT [facility] [address] [place] [address] Dr. Khai Hansen, Manager Produce Mindy Estrada MD LAB BLOOD ORDERABLES Final Re sult PRINT/EXTERNAL (NON-INTERFACED LABS) * Hemoglobin A1C (11/08/2021 8:09 AM CDT) Hemoglobin A1C 10.9 Blood specimen (specimen) Venous blood / Unknown 11/08/2021 8:09 AM CDT Lillian Cedillo MA - 11/09/2021 5:01 PM CDT Mary Ellen PEARSON [facility] [address] [facility].[id number] William Atkinson MD Lilian Mcintyre CLEANING TECHNICIAN LAB BLOOD ORDERABLES Final R esult from Last 3 Months or Most Recently Relevant to Health Maintenance Insurance Medicaid [place] ([id number]) [facility] Medicare Care Teams Fabrication And Assembly Supervisor Relationship Specialty Start Date End Date Karel Samantha [address] [place] [address] PCP - General 12/30/24
--- OUTSIDE RECORDS SUMMARY | 2025-01-09 12:51 | XMS_ITS | Encounter Summary ---
Author Organization [facility] Address [address] [facility] Attn: Epic Prelude ADT POONAM MATA [address] Care Team Providers Care Manufacturing Accountant Name Role Phone Unavailable Primary Care Provider Unavailabl e Encounter Details Date Type Department Care Team (Late st Contact Info) Description 12/18/2000 Inpatient Historical Fabrizio Cuello MD [address] [place] [address] [address] [place] [address] Social History Tobacco Use Types Packs/Day Years Used Date Smoking Tobacco: Never Assessed Sex and Gender Information Value Date Recorded Sex Assigned at Not on file Legal Sex Male 4:10 AM MANAGER MARKET DEVELOPMENT Gender Identity Not on file Sexual Orientation Not on file documented as of this encounter Plan of Treatment Not on file documented as of this encounter Visit Diagnoses Not on filedocumented in this encounter
[2025-01-09 13:00] VITALS: BP 140/84; PULSE 98; O2SAT 92
[2025-01-09 13:03] LABS: Hematocrit 41.3 % (37-53); Hemoglobin 13.30 g/dL (11.27-16.99); Mean Corpuscular HGB Conc 32.2 g/dL (30-55); Mean Corpuscular Hemoglobin 27.6 pg (27-33); Mean Corpuscular Volume 85.7 fl (82-101); Nucleated Red Blood Cells % 0.2 %; Platelet Count 219 10^3/cmm (157-399); Red Blood Count 4.82 10^6/uL (3.85-5.65); White Blood Count 9.47 10^3/uL (3.29-11.43)
[2025-01-09 13:17] LABS: Troponin(5th) Baseline 19 ng/L (0-15)
[2025-01-09 13:29] VITALS: BMI 54.5
[2025-01-09 13:30] VITALS: BP 103/77; BP 130/77; PULSE 80; PULSE 87; O2SAT 93; O2SAT 94
[2025-01-09 13:32] LABS: Albumin Level 4.0 g/dL (3.5-5.2); Alkaline Phosphatase 70 U/L (40-130); Blood Urea Nitrogen 26 mg/dL (8-23); Calcium 9.1 mg/dL (8.5-10.5); Carbon Dioxide 25 mmol/L (22-29); Chloride 100 mmol/L (98-107); Globulin 2.4 g/dL (1.3-4.6); Glucose 145 mg/dL (65-115); NT Pro B Type Natriuretic Pept 1026 pg/mL (0-125); Osmolality Calculated 295 mOsm/kg (285-295); Sodium 139 mmol/L (136-145); Total Protein 6.4 g/dL (6.6-8.7)
[2025-01-09 13:33] LABS: Creatinine Clr Calc Pharmacy 82.9626
[2025-01-09 13:34] LABS: Alanine Aminotransferase 25 U/L (0-41); Anion Gap 18.4 (5-19); Aspartate Amino Transferase 33 U/L (0-40); Potassium 4.4 mmol/L (3.5-5.1)
--- NOTE | 2025-01-09 14:13 | W.ED.CHESTPA ---
HPI - Chest Pain General: Chief Complaint: Chest Pain Stated Complaint: chest pain Time Seen by Provider: 01/09/25 12:44 History of Present Illness: 69-year-old man with a history of morbid obesity,, atrial fibrillation with chronic anticoagulation on Xarelto, type 2 diabetes, obstructive sleep apnea on CPAP at night, hyperlipidemia, diabetic neuropathy, chronic kidney disease, and diastolic heart failure who presents emergency room with chest pain. He developed sharp central chest pain couple of hours ago. He received nitroglycerin and route which did not really help but fentanyl did. No fevers. No cough. No altered mental status. No focal motor deficits. He does have some edema. Unclear if this is worse than usual. Related Data Home Medications ?Medication ?Instructions ?Recorded ?Confirmed ergocalciferol (vitamin D2) 1,250 50,000 unit PO Q30D 05/22/19 01/07/25 mcg (50,000 unit) capsule fenofibrate nanocrystallized 145 145 mg PO DAILY 05/22/19 01/07/25 mg tablet diclofenac sodium 1 % topical gel 4 g topical QID PRN Pain, Mild 06/19/19 01/07/25 triamcinolone acetonide 0.1 % 1 applic topical BID PRN joint 04/11/21 01/07/25 topical cream inflamation acyclovir 5 % topical ointment 1 applic topical 6XD PRN fever 09/05/23 01/07/25 blisters and rash areas magnesium chelate, malate 125 mg PO BID 09/05/23 01/07/25 psyllium husk 0.52 gram capsule 0.52 g PO BID 09/05/23 01/07/25 (Fiber (psyllium husk)) ketoconazole 2 % shampoo See Rx Instructions .Route .COMPLEX 03/12/24 01/07/25 acetaminophen 650 mg 650 mg PO Q12H 10/08/24 01/07/25 tablet,extended release (Tylenol Arthritis Pain) tirzepatide 12.5 mg/0.5 mL 12.5 mg SUBCUT Q7D 10/08/24 01/07/25 subcutaneous pen injector (Carlos) allopurinol 100 mg tablet 200 mg PO QPM 12/10/24 01/07/25 ezetimibe 10 mg tablet 10 mg PO DAILY 12/10/24 01/07/25 insulin glargine 100 unit/mL (3 60 unit SUBCUT DAILY 12/10/24 01/07/25 mL) subcutaneous pen (Lantus Solostar U-100 Insulin) insulin glargine U-300 conc 300 60 unit SUBCUT QAM 12/10/24 01/07/25 unit/mL (3 mL) subcutaneous pen (Toujeo Max U-300 SoloStar) insulin lispro 100 unit/mL 50 unit SUBCUT TID 12/10/24 01/07/25 subcutaneous pen isosorbide mononitrate 30 mg 60 mg PO DAILY 12/10/24 01/07/25 tablet,extended release 24 hr ketoconazole 2 % topical cream See Rx Instructions .Route 12/10/24 01/07/25 .COMPLEX affected leflunomide 20 mg tablet 20 mg PO QAM 12/10/24 01/07/25 verapamil 240 mg tablet,extended 240 mg PO QAM 12/10/24 01/07/25 release ondansetron HCl 4 mg tablet 4 mg PO .prn nausea 12/31/24 01/07/25 pantoprazole 40 mg tablet,delayed 40 mg PO BID 12/31/24 01/07/25 release Previous Rx's ?Medication ?Instructions ?Recorded blood-glucose meter (Accu-Chek #1 ea 01/21/20 Guide Glucose Meter) Diabetic shoes with inserts #1 ea 02/04/20 lancets (Accu-Chek Fastclix Lancet #200 ea 03/04/20 Drum) Diabetic shoes with molded inserts #1 ea 09/14/20 pen needle, diabetic 31 gauge x #100 ea 03/18/21 1 pen needle, diabetic 32 gauge x #100 ea 03/28/21 (BD Gabriella 2nd Gen Pen Needle) Diabetic shoes with 3 pairs of #1 ea 11/01/21 inserts flash glucose scanning reader #1 ea 02/21/22 (FreeStyle Huma 2 [place]) flash glucose sensor (FreeStyle #6 ea 02/21/22 Huma 2 Sensor kit) Diabetic shoes #1 ea 07/24/23 blood sugar diagnostic (Accu-Chek #300 ea 11/19/23 Guide test strips) metoprolol tartrate 50 mg tablet 100 mg (2 x 50 mg) PO BID #240 tabs 05/28/24 eplerenone 25 mg tablet 25 mg PO DAILY #90 tabs 10/21/24 prednisone 10 mg tablet See Rx Instructions PO .COMPLEX 11/17/24 PRN joint pain #30 tabs aspirin 81 mg tablet,delayed 81 mg PO DAILY #30 tabs 12/16/24 release furosemide 40 mg tablet (Lasix) 20 mg (1/2 x 40 mg) PO BID #60 tabs 12/16/24 hydralazine 25 mg tablet 25 mg PO TID #90 tabs 12/16/24 metolazone 2.5 mg tablet 2.5 mg PO DAILY PRN weight gain 12/16/24 #30 tabs potassium chloride 20 mEq 20 meq PO BID #60 tabs 12/16/24 tablet,extended release(part/cryst) (Klor-Con M) rivaroxaban 20 mg tablet (Xarelto) See Rx Instructions .Route 12/25/24 .COMPLEX #90 tabs dapagliflozin propanediol 10 mg 10 mg PO DAILY #90 tabs 01/01/25 tablet (Farxiga) nitroglycerin 0.4 mg sublingual 0.4 mg sublingual DIRECTED PRN 01/01/25 tablet (Nitrostat) CHEST PAIN #25 tabs topiramate 25 mg tablet (Topamax) 25 mg PO BID #60 tabs 01/07/25 Allergies Allergy/AdvReac Type Severity Reaction Status Date / Time empagliflozin (From Allergy Severe difficult Verified 01/07/25 08:16 Jardiance) breathing linaclotide (From Linzess) Allergy Unknown Hypertension; Verified 01/07/25 08:16 Afib metformin Allergy Unknown ADR-Diarrhe Verified 01/07/25 08:16 a naproxen Allergy Unknown Affects Verified 01/07/25 08:16 kidney fuctions Lkzebpa-UPQ-BzI Reductase Allergy Unknown Severe Verified 01/07/25 08:16 Inhibitor (Qhwdtng-Gdt-Fdh Muscle Pain Reductase Inhibitor) Sulfa (Sulfonamide Allergy Unknown ADR-Itching Verified 01/07/25 08:16 Antibiotics) baclofen Allergy Affects Verified 01/07/25 08:16 kidney fuctions NSAIDS (Non-Steroidal Allergy Affects Verified 01/07/25 08:16 Anti-Inflamma Kidney functions tramadol AdvReac Intermediate aggression Verified 01/07/25 08:16 Review of Systems Narrative: Constitutional symptoms: Negative except as documented in HPI. Skin symptoms: Negative except as documented in HPI. Eye symptoms: Negative except as documented in HPI. ENMT symptoms: Negative except as documented in HPI. Respiratory symptoms: Negative except as documented in HPI. Cardiovascular symptoms: Negative except as documented in HPI. Gastrointestinal symptoms: Negative except as documented in HPI. Genitourinary symptoms: Negative except as documented in HPI. Musculoskeletal symptoms: Negative except as documented in HPI. Neurologic symptoms: Negative except as documented in HPI. Psychiatric symptoms: Negative except as documented in HPI. Endocrine symptoms: Negative except as documented in HPI. PFSH ED PFSH: Medical History (Updated 01/09/25 @ 14:20 by Bharti Harden MD) Dysphagia Blood transfusion declined because patient is Rastafarian Chronic anticoagulation Melena Hypertrophy of uvula Diabetes type 2, uncontrolled COVID-19 COVID Dehydration Acute kidney injury superimposed on CKD Hypertrophy of uvula Retrosternal thyroid goiter Dyspnea LINDA on CPAP Ventral incisional hernia Substernal thyroid goiter Diverticulosis Rectal polyp External hemorrhoids with complication Rectal bleeding Morbid obesity with BMI of 60.0-69.9, adult Vitamin D deficiency Hyperlipidemia Anemia Morbid obesity Uncontrolled type 2 diabetes mellitus Diabetic neuropathy Stage 3 chronic kidney disease due to diabetes mellitus Neuropathy Rheumatoid arthritis In remission Carpal tunnel syndrome Osteoarthritis Gout CKD (chronic kidney disease) stage 3, GFR 30-59 ml/min Seronegative rheumatoid arthritis in remission Otalgia Chest pain Patient underwent coronary angiogram which was normal GERD (gastroesophageal reflux disease) Renal insufficiency Improved after IV fluid Diastolic heart failure Atrial fibrillation on anticoagulation Surgical History History of uvulectomy S/P skin cancer resection History of colonoscopy S/P appendectomy S/P thyroid surgery S/P tonsillectomy S/P hernia repair S/P trigger finger release S/P carpal tunnel release 2x left S/P cervical disc replacement History of esophagogastroduodenoscopy (EGD) Family History Father Cancer Prostate Hypertension Hypercholesterolemia Heart disease Mother Hypertension Hypercholesterolemia Anesthesia complication Daughter Anesthesia complication Denies family history of Bleeding disorder Social History Smoking and tobacco/nicotine status: never used tobacco/nicotine Alcohol intake: former Substance/Drug Use: never Lives independently: Yes Household members: spouse Marital status: Current occupational status: disabled Alexandra/Pentecostalism: Rastafarian Special alexandra needs: Yes Agree to transfusion: No Physical Exam Narrative: EXAM NARRATIVE: General: Alert, no acute distress. Skin: Warm, dry. Head: Normocephalic, atraumatic. Neck: Supple, trachea midline. Eye: Extraocular movements are intact. Ears, nose, mouth and throat: mucosa moist. Cardiovascular: Irregular, Normal peripheral perfusion. Edematous legs Respiratory: Lungs are clear to auscultation, respirations are non-labored, breath sounds are equal, Symmetrical chest wall expansion. Gastrointestinal: Soft, Nontender, Non distended Musculoskeletal: Normal ROM, no deformity. Neurological: Alert and oriented, No focal neurological deficit observed. Psychiatric: Cooperative, appropriate mood & affect. Course Vital Signs: Vital signs: Vital Signs Pulse Rate 87 01/09/25 13:30 Blood Pressure 103/77 01/09/25 13:30 Pulse Oximetry 94 01/09/25 13:30 Oxygen Delivery Me thod Room Air 01/09/25 13:30 MDM - Chest Pain Medical Decision Making Differential diagnosis for patient with chest pain includes but is not limited to and based on the above HPI, review of systems and physical exam: Pneumonia. unstable angina. angina. Acute coronary syndrome / [place]. Pulmonary embolism. Costochondritis / musculoskeletal. Pleurisy. Pericarditis. Esophageal spasm. Pancreatis. Cholecystitis. Orders placed to evaluate differential diagnosis based on the above differential, HPI and physical exam EKG: Time 1248. Rate 98. Atrial fibrillation with controlled rate, No ST-T changes, no ectopy, right bundle branch block. This was reviewed and interpreted by myself the ER physician at 1255 Lab Review: Laboratory results were reviewed and interpreted by myself the emergency room physician. No leukocytosis. No anemia. Stable chronic kidney disease with a creatinine of 1.3. proBNP is stable at 1000. Given nature of chronic chest pain and with a recent cardiac catheterization I do not feel that further serial troponins are necessary. I reviewed the patient's medical record. 69-year-old man with a history of morbid obesity,, atrial fibrillation with chronic anticoagulation on Xarelto, type 2 diabetes, obstructive sleep apnea on CPAP at night, hyperlipidemia, diabetic neuropathy, chronic kidney disease, and diastolic heart failure who presents emergency room with chest pain. Reviewed recent cardiology clinic note. This was a follow-up for cardiac catheterization. He was found to have no obstructive coronary disease at that time. We also state that he has chronic intermittent chest pain. Reexamination: Patient has remained chest pain-free. This was reviewed and interpreted by myself the emergency room physician. I also reviewed the radiology report. Assessment and plan: Noncardiac chest pain ?No intervention here in the emergency room. Has remained chest pain-free. - Discharged home - Discussed plan with patient. Answered any questions. - Evaluation and treatment of this problem were appropriate in the emergency setting. Lab Data 01/09/25 12:50 01/09/25 12:50 Laboratory Results WBC 9.47 10^3/uL (3.29-11.43) 01/09/25 12:50 RBC 4.82 10^6/uL (3.85-5.65) 01/09/25 12:50 Hgb 13.30 g/dL (11.27-16.99) 01/09/25 12:50 Hct 41.3 % (37-53) 01/09/25 12:50 MCV 85.7 fl (82-101) 01/09/25 12:50 MCH 27.6 pg (27-33) 01/09/25 12:50 MCHC 32.2 g/dL (30-55) 01/09/25 12:50 RDW 14.5 % (12.1-15.1) 01/09/25 12:50 Plt Count 219 10^3/cmm (157-399) 01/09/25 12:50 MPV 10.0 fL (7.4-10.4) 01/09/25 12:50 Neut % (Auto) 69.0 % 01/09/25 12:50 Lymph % (Auto) 18.5 % 01/09/25 12:50 Liberty % (Auto) 9.5 % 01/09/25 12:50 Eos % (Auto) 1.4 % 01/09/25 12:50 Baso % (Auto) 1.1 % 01/09/25 12:50 Neut # (Auto) 6.54 10^3/uL (1.8-7.7) 01/09/25 12:50 Lymph # (Auto) 1.8 10^3/uL (0.8-4.8) 01/09/25 12:50 Liberty # (Auto) 0.9 10^3/uL (0.2-0.9) 01/09/25 12:50 Eos # (Auto) 0.1 10^3/uL (0.0-0.8) 01/09/25 12:50 Baso # (Auto) 0.1 10^3/uL (0.0-0.1) 01/09/25 12:50 Nucleated RBC % (auto) 0.2 % 01/09/25 12:50 Nucleated RBCs # 0.0 /100WBC 01/09/25 12:50 Sodium 139 mmol/L (136-145) 01/09/25 12:50 Potassium 4.4 mmol/L (3.5-5.1) 01/09/25 12:50 Chloride 100 mmol/L (98-107) 01/09/25 12:50 Carbon Dioxide 25 mmol/L (22-29) 01/09/25 12:50 Anion Gap 18.4 (5-19) 01/09/25 12:50 BUN 26 mg/dL (8-23) H 01/09/25 12:50 Creatinine 1.3 mg/dL (0.7-1.2) H 01/09/25 12:50 GFR Calculation 54.7 mL/min (90-130) L 01/09/25 12:50 Glucose 145 mg/dL (65-115) H 01/09/25 12:50 Calculated Osmolality 295 mOsm/kg (285-295) 01/09/25 12:50 Calcium 9.1 mg/dL (8.5-10.5) 01/09/25 12:50 Total Bilirubin 0.3 mg/dL (0.15-1.2) 01/09/25 12:50 AST 33 U/L (0-40) 01/09/25 12:50 ALT 25 U/L (0-41) 01/09/25 12:50 Alkaline Phosphatase 70 U/L (40-130) 01/09/25 12:50 Troponin T Baseline 19 ng/L (0-15) H 01/09/25 12:50 NT-Pro-B Natriuret Pep 1026 pg/mL (0-125) H 01/09/25 12:50 Total Protein 6.4 g/dL (6.6-8.7) L 01/09/25 12:50 Albumin 4.0 g/dL (3.5-5.2) 01/09/25 12:50 Globulin 2.4 g/dL (1.3-4.6) 01/09/25 12:50 No radiology studies performed this visit Discharge Plan Discharge Patient Disposition: Home Clinical Impression: Non-cardiac chest pain Atrial fibrillation Qualifiers: Atrial fibrillation type: unspecified chronic Qualified Code(s): I48.20 - Chronic atrial fibrillation, unspecified Condition: Stable Prescriptions: No Action (DME) blood-glucose meter [Accu-Chek Guide Glucose Meter] Misc See Rx Instructions .ROUTE .MEDSUPPLY Qty: 1 0RF Rx Instructions: As directed (DME) lancets [Accu-Chek Fastclix Lancet Drum] Misc See Rx Instructions .ROUTE .MEDSUPPLY Qty: 200 3RF Rx Instructions: three times/day (DME) Diabetic shoes with molded inserts See Rx Instructions .Route .MEDSUPPLY Qty: 1 0RF Rx Instructions: As directed fenofibrate nanocrystallized 145 mg tablet 145 mg PO DAILY ergocalciferol (vitamin D2) 50,000 unit capsule 50,000 unit PO Q30D Rx Instructions: FIRST SUNDAY OF THE MONTH (DME) pen needle, diabetic 31 gauge x 1/4 needle See Rx Instructions .Route Qty: 100 3RF Rx Instructions: As directed (DME) Diabetic shoes with 3 pairs of inserts See Rx Instructions .Route .MEDSUPPLY Qty: 1 0RF Rx Instructions: As directed (DME) Diabetic shoes See Rx Instructions .ROUTE .MEDSUPPLY Qty: 1 0RF Rx Instructions: With 3 pairs of inserts made by HOME ketoconazole 2 % shampoo See Rx Instructions .ROUTE .COMPLEX Rx Instructions: Apply to scalp 2 or 3 times weekly, let sit 5 minutes, then rinse. prednisone 10 mg tablet See Rx Instructions PO .COMPLEX PRN (Reason: joint pain) Qty: 30 1RF Rx Instructions: Take 1 tablet by mouth daily for 3-7 days as needed for joint pain flare. dapagliflozin propanediol [Farxiga] 10 mg tablet 10 mg PO DAILY Qty: 90 3RF nitroglycerin [Nitrostat] 0.4 mg tablet, sublingual 0.4 mg SUBLINGUAL DIRECTED PRN (Reason: CHEST PAIN) Qty: 25 3RF topiramate [Topamax] 25 mg tablet 25 mg PO BID Qty: 60 0RF magnesium chelate, malate 125 mg magnesium capsule 125 mg PO BID psyllium husk [Fiber (psyllium husk)] 0.52 gram capsule 0.52 g PO BID acyclovir 5 % ointment 1 applic topical 6XD PRN (Reason: fever blisters and rash areas) acetaminophen [Tylenol Arthritis Pain] 650 mg tablet extended release 650 mg PO Q12H Mounjaro 12.5 mg/0.5 mL pen injector 12.5 mg SUBCUT Q7D ondansetron HCl 4 mg tablet 4 mg PO .prn nausea pantoprazole 40 mg tablet,delayed release (DR/EC) 40 mg PO BID (DME) Diabetic shoes with inserts See Rx Instructions .Route .MEDSUPPLY Qty: 1 0RF Rx Instructions: [place] [place] pen needle, diabetic [BD Gabriella 2nd Gen Pen Needle] 32 gauge x 5/32 needle See Rx Instructions .Route Qty: 100 3RF Rx Instructions: As directed [place] FreeStyle Huma 2 [place] Misc See Rx Instructions .Route Qty: 1 0RF Rx Instructions: Check BS 4 -6 times a day. [place] FreeStyle Huma 2 Sensor Kit See Rx Instructions .Route Qty: 6 3RF Rx Instructions: Change every 14 days. [place] Accu-Chek Guide test strips Strip See Rx Instructions .ROUTE .COMPLEX Qty: 300 0RF Dose Instruction: USE 1 THREE TIMES DAILY *E11.65* Rx Instructions: USE 1 THREE TIMES DAILY *E11.65* metoprolol tartrate 50 mg tablet 100 mg PO BID Qty: 240 3RF eplerenone 25 mg tablet 25 mg PO DAILY Qty: 90 3RF Xarelto 20 mg tablet See Rx Instructions .ROUTE .COMPLEX Qty: 90 3RF Dose Instruction: TAKE 1 TABLET BY MOUTH DAILY Rx Instructions: TAKE 1 TABLET BY MOUTH DAILY triamcinolone acetonide 0.1 % cream 1 applic topical BID PRN (Reason: joint inflamation) diclofenac sodium 1 % gel 4 g topical QID PRN (Reason: Pain, Mild) Rx Instructions: 4 grams topically 4 times daily as needed ketoconazole 2 % cream See Rx Instructions .ROUTE .COMPLEX Rx Instructions: APPLY TWICE DAILY TO AFFECTED AREAS ON FACE FOR 4 WEEKS THEN NEEDED. insulin glargine U-300 conc [Toujeo Max U-300 SoloStar] 300 unit/mL (3 mL) insulin pen 60 unit SUBCUT QAM isosorbide mononitrate 30 mg tablet extended release 24 hr 60 mg PO DAILY allopurinol 100 mg tablet 200 mg PO QPM leflunomide 20 mg tablet 20 mg PO QAM verapamil 240 mg tablet extended release 240 mg PO QAM insulin lispro 100 unit/mL insulin pen 50 unit SUBCUT TID ezetimibe 10 mg tablet 10 mg PO DAILY insulin glargine [Lantus Solostar U-100 Insulin] 100 unit/mL (3 mL) insulin pen 60 unit SUBCUT DAILY aspirin 81 mg Tablet,Delayed Release (Dr/Ec) 81 mg PO DAILY Qty: 30 2RF metolazone 2.5 mg tablet 2.5 mg PO DAILY PRN (Reason: weight gain) Qty: 30 2RF Rx Instructions: Take for weight gain greater than 3 pounds in 24 hours, or 5 pounds in a week. furosemide [Lasix] 40 mg tablet 20 mg PO BID Qty: 60 0RF Rx Instructions: Take in AM and at 2 PM hydralazine 25 mg Tablet 25 mg PO TID Qty: 90 2RF potassium chloride [Klor-Con M20] 20 mEq Tablet,Er Particles/Crystals 20 meq PO BID Qty: 60 2RF Discharge Orders: Discharge ED (Routine); Ordered 01/09/25 Ordered By: Bharti Harden Referrals: Samantha Vinson DO [Primary Care Provider, CHANGE MANAGEMENT] Discharge Diet: Usual diet Discharge Activity: Increase activity as tolerated Patient Instructions: Noncardiac Chest Pain (ED), Opioid Safety, Pain Management, Patient Portal & Jamey Instructions Activity Restrictions/Additional Instructions: Thank you for choosing [facility] for your healthcare needs today. You have been screened and evaluated and felt safe for discharge. Health conditions do change or evolve sometimes and as such it is important that you follow up with your Primary Doctor to be re checked, 3-5 days is a general good time frame for follow up. You are always welcome to return to the ED for re assessment if your symptoms are worsening or you have new concerns Print Language: Greek Coding Level of Care Code ED Rn Assessment for Marcelle Bang
--- NOTE | 2025-01-09 14:27 | PC.NURSE ---
nitro paste removed from pt chest at 1426.
[2025-01-09 14:52] VITALS: BP 113/72; PULSE 77; O2SAT 92
== END 2025-01-09 14:53 | disposition home or self-care (01) ==
PROVIDERS: Emergency Provider Emergency Medicine; PCP Family Medicine
DX: R07.89 Other chest pain (principal); I48.20 Chronic atrial fibrillation, unspecified; Z79.82 Long term (current) use of aspirin; Z79.4 Long term (current) use of insulin; E11.22 Type 2 diabetes mellitus with diabetic chronic kidney disease; N18.30 Chronic kidney disease, stage 3 unspecified; I50.30 Unspecified diastolic (congestive) heart failure; E78.5 Hyperlipidemia, unspecified
CPT/HCPCS: 36415; 80053; 83880; 84484; 85025; 93005; 99284

== ENCOUNTER → 2025-01-12 08:13 | Outpatient (BNVA) | payer OTHER, SELFPAY | PROVIDERS: PCP Family Medicine; Visit Provider Nurse Practitioner Family | DX: M79.18 Myalgia, other site (principal); M54.2 Cervicalgia | CPT/HCPCS: 20553; 99214; J1010; J3490 ==

== ENCOUNTER → 2025-01-27 08:10 | Outpatient (BNVA) | payer OTHER, SELFPAY | PROVIDERS: PCP Family Medicine; Visit Provider Nurse Practitioner Family | DX: M54.2 Cervicalgia (principal) | CPT/HCPCS: 99214 ==

== ENCOUNTER → 2025-03-31 09:31 | Outpatient (BNVA) | payer OTHER, SELFPAY | PROVIDERS: PCP Family Medicine; Visit Provider Orthopaedic Surgery | DX: M54.12 Radiculopathy, cervical region (principal) | CPT/HCPCS: 99214 ==

== ENCOUNTER 2025-04-01 10:33 | Oncology outpatient (recurring) (ONCR) | payer MEDICARE, SELFPAY ==
[2025-04-01 11:05] LABS: Hematocrit 43.8 % (37-53); Hemoglobin 13.70 g/dL (11.27-16.99); Mean Corpuscular HGB Conc 31.3 g/dL (30-55); Mean Corpuscular Hemoglobin 26.2 pg (27-33); Mean Corpuscular Volume 83.9 fl (82-101); Nucleated Red Blood Cells % 0 %; Platelet Count 218 10^3/cmm (157-399); Red Blood Count 5.22 10^6/uL (3.85-5.65); White Blood Count 8.39 10^3/uL (3.29-11.43)
[2025-04-01 11:31] LABS: Alanine Aminotransferase 19 U/L (0-41); Albumin Level 4.2 g/dL (3.5-5.2); Alkaline Phosphatase 60 U/L (40-130); Anion Gap 18.2 (5-19); Aspartate Amino Transferase 22 U/L (0-40); Blood Urea Nitrogen 23 mg/dL (8-23); Calcium 9.5 mg/dL (8.5-10.5); Carbon Dioxide 31 mmol/L (22-29); Chloride 96 mmol/L (98-107); Ferritin 41 ng/mL (30-400); Globulin 3.0 g/dL (1.3-4.6); Glucose 126 mg/dL (65-115); Iron 53 ug/dL (59-158); Osmolality Calculated 299 mOsm/kg (285-295); Potassium 3.2 mmol/L (3.5-5.1); Sodium 142 mmol/L (136-145); Total Iron Binding Capacity 458 mcg/dl; Total Protein 7.2 g/dL (6.6-8.7); Unsaturated Iron Binding 405 ug/dL (112-347)
[2025-04-01 11:32] LABS: Alanine Aminotransferase 18 U/L (0-41); Albumin Level 4.2 g/dL (3.5-5.2); Alkaline Phosphatase 60 U/L (40-130); Aspartate Amino Transferase 23 U/L (0-40); Globulin 3.1 g/dL (1.3-4.6); Total Protein 7.3 g/dL (6.6-8.7)
[2025-04-01 13:12] LABS: Estmated Average Glucose 171; Hemoglobin A1C 7.6 % (4.0-6.0)
== END 2025-04-05 23:59 | disposition home or self-care (01) ==
PROVIDERS: Internal Medicine Rheumatology; Nurse Practitioner; Orthopaedic Surgery; PCP Family Medicine; Visit Provider Internal Medicine
DX: D50.8 Other iron deficiency anemias (principal); K59.00 Constipation, unspecified; G89.29 Other chronic pain; Z79.899 Other long term (current) drug therapy
CPT/HCPCS: 36415; 80053; 80076; 82728; 83036; 83540; 83550; 85025; 85651; 86140; 99213

== ENCOUNTER 2025-04-06 09:55 | Oncology outpatient (recurring) (ONCR) | payer MEDICARE, SELFPAY ==
[2025-04-06 11:00] LABS: Glucose Urine UA 3+ (Normal); Nitrate Urine Negative (Negative); Specific Gravity, Urine 1.030 (1.005-1.030)
[2025-04-06 11:06] LABS: Add Urine Microscopic? YES
== END 2025-05-06 23:59 | disposition home or self-care (01) ==
LOC: ONCMED 09:56
PROVIDERS: PCP Family Medicine; Visit Provider Internal Medicine
DX: D50.8 Other iron deficiency anemias (principal); K59.00 Constipation, unspecified; G89.29 Other chronic pain; Z79.899 Other long term (current) drug therapy
CPT/HCPCS: 81001

== ENCOUNTER 2025-04-07 13:16 | Emergency (ER) | payer MEDICARE, SELFPAY ==
[2025-04-07 13:22] VITALS: BP 165/77; PULSE 60; RESP 20; TEMP 36.6; O2SAT 95; BMI 53.7
--- NOTE | 2025-04-07 13:27 | ECG_ITS ---
[facility] Test Date: 2025-04-07 Pat Name: Mauro Solis Department: Room: Gender: Male [employer]: : 1955 Requested By: Bharti Abdalla Order Number: [id number] Sandi MD: Robb Banegas M.D. Measurements Intervals [place] Rate: 65 P: 0 KS: 0 QRS: -50 QRSD: 127 T: 16 QT: 412 QTc: 429 Interpretive Statements ATRIAL FIBRILLATION LEFT AXIS DEVIATION [QRS AXIS < -30] POSSIBLE RIGHT VENTRICULAR CONDUCTION DELAY [RSR (QR) IN V1/V2] Compared to ECG 01/09/2025 12:48:24 Right bundle-branch block no longer present Electronically Signed On 04-07-2025 18:57:12 CERTIFIED HAND THERAPIST by Robb Banegas M.D. [email or web address]
--- NOTE | 2025-04-07 14:02 | XR_ITS ---
WS: [id number] Exam: XR chest 1V portable [id number] Date/Time of Exam: 04/07/2025 2:05 PM Reason For Exam: chest pain Comparison 12/10/2024. Lungs are fully expanded and clear. Heart size top limits normal. No pleural effusions. Bony structures are intact. DJD of the LEFT shoulder. XR/XR chest 1V portable [id number] IMPRESSION: 1. No acute cardiopulmonary finding.
--- NOTE | 2025-04-07 14:17 | ED_ITS ---
Documented by User: CHEMA Suarez 04/07/25 16:52 HPI - Chest Pain 2 General: Chief Complaint: Chest Pain Stated Complaint: cp, sob Time Seen by Provider: 04/07/25 14:01 Source: patient Mode of arrival: ambulatory Limitations: no limitations History of Present Illness: Patient is a 69-year-old male with past medical history of atrial fibrillation, congestive heart failure, chronic kidney disease stage III, morbid obesity, type 2 diabetes, and chronic anticoagulation on Xarelto presenting to the emergency department for chest pain that has been worsening throughout the day. States that yesterday he started to feel off and included shortness of breath and bilateral neck pain. States today that he noticed that he started to have some central chest pressure that has slowly gotten worse, and did not improve after he took 1 nitroglycerin. He also, with his Xarelto, chronically takes 81 mg of aspirin. States that he was seen here in the emergency department in December of this year for similar and was subsequently admitted to the hospital, and last had a Computer Installation Engineer procedure in December showing no disease noted to the left main, left anterior descending, right, or circumflex coronary arteries. His last echocardiogram was also in December showing left ventricular ejection fraction of 60% and grade 2/4 diastolic dysfunction. Patient states his symptoms are currently consistent with why he presented to the emergency department a couple of months ago. He does note that he has been retaining more fluid. At this time he is also noting feeling flushed and sweating. He is minimally hypertensive, rest of his vitals are stable he is breathing comfortably on room air. MD complaint: chest pain Onset (ago): hour(s) Timing of current episode: constant Prior episodes: Yes Pain radiation: neck Severity: similar to previous episodes Associated symptoms: Reports diaphoresis and dyspnea; Deny abdominal pain, fever(s), nausea, palpitations or vomiting Related Data Home Medications ?Medication ?Instructions ?Recorded ?Confirmed ergocalciferol (vitamin D2) 1,250 50,000 unit PO Q30D 05/22/19 04/01/25 mcg (50,000 unit) capsule fenofibrate nanocrystallized 145 145 mg PO DAILY 05/2204/01/25 mg tablet diclofenac sodium 1 % topical gel 4 g topical QID PRN Pain, Mild 06/19/19 04/01/25 triamcinolone acetonide 0.1 % 1 applic topical BID PRN joint 04/11/21 04/01/25 topical cream inflamation acyclovir 5 % topical ointment 1 applic topical 6XD OR N fever 09/05/23 04/01/25 blisters and rash areas magnesium chelate, malate 125 mg PO BID 09/05/2304/01 psyllium husk 0.52 gram capsule 0.52 g PO BID 09/05/23 04/01/25 (Fiber (psyllium husk)) ketoconazole 2 % shampoo See Rx Instructions .Route . COMPLEX 03/12/24 04/01/25 acetaminophen 650 mg 650 mg PO Q12H 10/08/2403/08 tablet,extended release (Tylenol Arthritis Pain) tirzepatide 12.5 mg/0.5 mL 12.5 mg SUBCUT Q7D 10/08/24 04/01/25 subcutaneous pen injector (Carlos) allopurinol 100 mg tablet 200 mg PO QPM 12/10/2404/01 ezetimibe 10 mg tablet 10 mg PO DAILY 12/10/2403/08 insulin glargine U-300 conc 300 60 unit SUBCUT QAM 10/2904/01/25 unit/mL (3 mL) subcutaneous pen (Toujeo Max U-300 SoloStar) insulin lispro 100 unit/mL 50 unit SUBCUT TID 12/10/24 04/01/25 subcutaneous pen isosorbide mononitrate 30 mg 60 mg PO DAILY 12/10/24 1 06/01/24 tablet,extended release 24 hr ketoconazole 2 % topical cream See Rx Instructions .Ro [place] 12/10/24 04/01/25 .COMPLEX affected leflunomide 20 mg tablet 20 mg PO QAM 12/10/24 verapamil 240 mg tablet,extended 240 mg PO QAM 5 04/01/25 release ondansetron HCl 4 mg tablet 4 mg PO .prn nausea 04/01/25 insulin glargine 100 unit/mL (3 64 unit SUBCUT DAILY 1 06/01/24 04/01/25 mL) subcutaneous pen (Lantus Solostar U-100 Insulin) Previous Rx's ?Medication ?Instructions ?Recorded blood-glucose meter (Accu-Chek #1 ea 01/21/20 Guide Glucose Meter) Diabetic shoes with inserts #1 ea 02/04/20 lancets (Accu-Chek Fastclix Lancet #200 ea 03/04/20 Drum) Diabetic shoes with molded inserts #1 ea 09/14/20 pen needle, diabetic 31 gauge x #100 ea 03/18/21 1 pen needle, diabetic 32 gauge x #100 ea 03/28/21 (BD Gabriella 2nd Gen Pen Needle) Diabetic shoes with 3 pairs of #1 ea 11/01/21 inserts flash glucose scanning reader #1 ea 02/21/22 (FreeStyle Huma [address] [place]) flash glucose sensor (FreeStyle #6 ea 02/21/22 Huma 2 Sensor kit) blood sugar diagnostic (Accu-Chek #300 ea 11/19/23 Guide test strips) eplerenone 25 mg tablet 25 mg PO DAILY #90 tabs 10/05 11/28 prednisone 10 mg tablet See Rx Instructions PO .COMP MICHEAL 11/17/24 PRN joint pain #30 tabs metolazone 2.5 mg tablet 2.5 mg PO DAILY PRN weight g ain 12/16/24 #30 tabs potassium chloride 20 mEq 20 meq PO BID #60 tabs 12/16 tablet,extended release(part/cryst) (Klor-Con M) rivaroxaban 20 mg tablet (Xarelto) See Rx Instructions .Route 12/25/24 .COMPLEX #90 tabs dapagliflozin propanediol 10 mg 10 mg PO DAILY #90 tab s 01/01/25 tablet (Farxiga) nitroglycerin 0.4 mg sublingual 0.4 mg sublingual D IRECTED PRN 01/01/25 tablet (Nitrostat) CHEST PAIN #25 tabs Diabetic shoes #1 ea 01/27/25 pregabalin 25 mg capsule (Lyrica) 25 mg PO BID PRN ner ve pain #60 01/27/25 caps furosemide 40 mg tablet (Lasix) 20 mg (1/2 x 40 mg) PO BID #90 tabs 02/19/25 metoprolol tartrate 50 mg tablet 100 mg (2 x 50 mg) PO BID #360 tabs 03/04/25 aspirin 81 mg tablet,delayed 81 mg PO DAILY #90 tabs 1 05/16/24 release pantoprazole 40 mg tablet,delayed 40 mg PO BID #180 ta bs 03/17/25 release hydralazine 25 mg tablet 25 mg PO TID #270 tabs 03/24 Allergies Allergy/AdvReac Type Severity Reaction Status Date / Time empagliflozin (From Allergy Severe difficult Verified 04/07/25 13:38 Jardiance) breathing linaclotide (From Linzess) Allergy Unknown Hypertension; Verified 04/07/25 13:38 Afib metformin Allergy Unknown ADR-Diarrhe Verified 04/07/25 13:38 a naproxen Allergy Unknown Affects Verified 04/07/25 13:38 kidney fuctions Vljphny-MMW-JwU Reductase Allergy Unknown Severe Verified 04/07/25 13:38 Inhibitor (Xqntdgn-Hdp-Bdm Muscle Pain Reductase Inhibitor) Sulfa (Sulfonamide Allergy Unknown ADR-Itching Verified 04/07/25 13:38 Antibiotics) baclofen Allergy Affects Verified 04/07/25 13:38 kidney fuctions NSAIDS (Non-Steroidal Allergy Affects Verified 04/07/25 13:38 Anti-Inflamma Kidney functions tramadol AdvReac Intermediate aggression Verified 04/07/25 13:38 topiramate (From Topamax) AdvReac Mild ADR-Irritab Verified 04/07/25 13:38 le Review of Systems 2 General: Reports: 10 or more systems reviewed and unremarkable except in HPI and below Const: Reports: diaphoresis; Denies: fever(s), chills or fatigue Eyes: Denies: change in vision ENMT: Denies: throat pain, ear or mastoid pain or nasal discharge Card: Reports: chest pain and swelling of feet/ankles; Denies: palpitations or lightheadedness Resp: Reports: dyspnea; Denies: productive cough or wheezing GI: Denies: abdominal pain, nausea, vomiting, diarrhea or constipation : Denies: flank pain, difficulty urinating, dysuria or urinary frequency Musc: Denies: neck pain, back pain or joint pain Skin/Breast: Denies: rash Neuro: Denies: headache(s), numbness in extremities or weakness in extremities Endo: Reports: flushing PFSH ED 2 PFSH: Medical History Dysphagia Blood transfusion declined because patient is [employer] Chronic anticoagulation Melena Hypertrophy of uvula Diabetes type 2, uncontrolled COVID-19 COVID Dehydration Acute kidney injury superimposed on CKD Hypertrophy of uvula Retrosternal thyroid goiter Dyspnea LINDA on CPAP Ventral incisional hernia Substernal thyroid goiter Diverticulosis Rectal polyp External hemorrhoids with complication Rectal bleeding Morbid obesity with BMI of 60.0-69.9, adult Vitamin D deficiency Hyperlipidemia Anemia Morbid obesity Uncontrolled type 2 diabetes mellitus Diabetic neuropathy Stage 3 chronic kidney disease due to diabetes mellitus Neuropathy Rheumatoid arthritis In remission Carpal tunnel syndrome Osteoarthritis Gout CKD (chronic kidney disease) stage 3, GFR 30-59 ml/min Seronegative rheumatoid arthritis in remission Otalgia Chest pain Patient underwent coronary angiogram which was normal GERD (gastroesophageal reflux disease) Renal insufficiency Improved after IV fluid Diastolic heart failure Atrial fibrillation on anticoagulation Surgical History History of uvulectomy S/P skin cancer resection History of colonoscopy S/P appendectomy S/P thyroid surgery S/P tonsillectomy S/P hernia repair S/P trigger finger release S/P carpal tunnel release 2x left S/P cervical disc replacement History of esophagogastroduodenoscopy (EGD) Family History Father Cancer Prostate Hypertension Hypercholesterolemia Heart disease Mother Hypertension Hypercholesterolemia Anesthesia complication Daughter Anesthesia complication Denies family history of Bleeding disorder Social History Smoking and tobacco/nicotine status: never used tobacco/nicotine Alcohol intake: former Substance/Drug Use: never Lives independently: Yes Household members: spouse Marital status: Current occupational status: disabled Alexandra/[employer]: [employer] Special alexandra needs: Yes Agree to transfusion: No Physical Exam 2 Const: COMMON NORMALS: patient oriented x3 GENERAL APPEARANCE: cooperative NUTRITIONAL APPEARANCE: obese morbidly obese ORIENTATION/CONSCIOUSNESS: Yes awake, Yes oriented to person, Yes oriented to place and Yes oriented to time HENMT: COMMON NORMALS: normocephalic, atraumatic and hearing grossly normal bilaterally HEAD & SCALP: normocephalic and atraumatic Resp: COMMON NORMALS: normal respiratory effort, No retractions, No use of accessory muscles and clear to auscultation bilaterally AUSCULTATION: clear to auscultation bilaterally OTHER: No respiratory distress. Cardio: COMMON NORMALS: regular rate, regular rhythm, No clicks present (Cardio), No murmurs present (Cardio) and No rub (Cardio) RATE: regular rate RHYTHM: regular rhythm GI: COMMON NORMALS: non-tender INSPECTION: Yes central obesity RECTAL EXAM: Yes deferred Extremity: COMMON NORMALS: full ROM and capillary refill normal NARRATIVE EXTREMITY EXAM: 2+ pitting edema bilateral lower extremi ties Neuro: COMMON NORMALS: patient oriented x3, moves all extremities, no focal motor deficits and no sensory deficits noted SENSORIUM/ORIENTATION: Yes oriented to person, Yes oriented to place and Yes oriented to time Skin: COMMON NORMALS: no rashes or lesions noted GENERAL SKIN EXAM: no rashes or lesions noted Course 2 Vital Signs: Vital signs: Vital Signs Temperature 97.9 F 04/07/25 13:22 Pulse Rate 79 04/07/25 17:27 Respiratory Rate 20 H 04/07/25 13:22 Blood Pressure 169/100 04/07/25 17:27 Pulse Oximetry 97 04/07/25 17:27 Oxygen Delivery Me thod Room Air 04/07/25 13:22 MDM - Chest Pain Medical Decision Making Patient presented for chest pain that had been gradually increasing throughout the day. This patient was admitted to the hospital a couple of months ago where he had full cardiac workup including cardiac cath which was reviewed and unremarkable, also echocardiogram. He does have a history of heart failure, but no significant signs of fluid overload at time of exam. Chest pain had been unrelieved by 2 nitroglycerin. He had endorsed that it was a pressure radiating towards his back and into his neck. His baseline troponin 19, which is not different from previous and his delta troponin is negative. His BNP is not significantly elevated either from baseline, and the rest of his lab work unremarkable. Chest x-ray normal. Chest CTA ordered and does not demonstrate any signs of PE or dissection. I spoke to the patient afterwards to inform him of his reassuring workup, tells me that he wants to see if he can be placed in observation overnight. His local company flatbed truck driver is Dr. Chavez, who I spoke to and agrees that being that he recently had full cardiac workup there is no reason to admit at this time and that he can follow-up as an outpatient and return if his condition worsens for reevaluation. I relayed to the patient I had spoken to his personal local company flatbed truck driver, and the patient endorses relief from this and states he is comfortable with this plan. He understands to return if his condition worsens, all other questions and concerns addressed at this time. Vitals have remained stable throughout ED course. Lab Data 04/07/25 14:25 04/07/25 14:25 Radiology Impressions Chest X-Ray 04/07/25 14: IMPRESSION: 1. No acute cardiopulmonary finding. Chest CTA 04/07/25 15:43 IMPRESSION: 1. Limited study. No acute pulmonary embolus. 2. 4.4 cm ascending thoracic aorta. Laboratory Results WBC 8.50 10^3/uL (3.29-11.43) 04/07/25 14: RBC 4.93 10^6/uL (3.85-5.65) 04/07/25 14: Hgb 12.90 g/dL (11.27-16.99) 04/07/25 14:25 Hct 42.2 % (37-53) 04/07/25 14:25 MCV 85.6 fl (82-101) 04/07/25 14:25 MCH 26.2 pg (27-33) L 04/07/25 14: MCHC 30.6 g/dL (30-55) 04/07/25 14: RDW 14.2 % (12.1-15.1) 04/07/25 14: Plt Count 196 10^3/cmm (157-399) 04/07/25 14: MPV 9.8 fL (7.4-10.4) 04/07/25 14:25 Neut % (Auto) 69.7 % 04/07/25 14:25 Lymph % (Auto) 19.2 % 04/07/25 14:25 [place] % (Auto) 8.5 % 04/07/25 14:25 Eos % (Auto) 1.3 % 04/07/25 14:25 Baso % (Auto) 0.8 % 04/07/25 14: Neut # (Auto) 5.93 10^3/uL (1.8-7.7) 04/07/25 14:25 Lymph # (Auto) 1.6 10^3/uL (0.8-4.8) 04/07/25 14:25 [place] # (Auto) 0.7 10^3/uL (0.2-0.9) 04/07/25 14:25 Eos # (Auto) 0.1 10^3/uL (0.0-0.8) 04/07/25 14:25 Baso # (Auto) 0.1 10^3/uL (0.0-0.1) 04/07/25 14:25 Nucleated RBC % (auto) 0 % 04/07/25 14: Nucleated RBCs # 0.0 /100WBC 04/07/25 14:25 PT 21.60 SECONDS (12.1-14.9) H 04/07/25 14: INR 1.76 (0.8-1.2) H 04/07/25 14:25 APTT 32.3 SECONDS (23.9-36.7) 04/07/25 14:25 Sodium 139 mmol/L (136-145) 04/07/25 14:25 Potassium 4.2 mmol/L (3.5-5.1) 04/07/25 14:25 Chloride 99 mmol/L (98-107) 04/07/25 14:25 Carbon Dioxide 26 mmol/L (22-29) 04/07/25 14:25 Anion Gap 18.2 (5-19) 04/07/25 14:25 BUN 23 mg/dL (8-23) 04/07/25 14:25 Creatinine 1.3 mg/dL (0.7-1.2) H 04/07/25 14:25 GFR Calculation 54.7 mL/min (90-130) L 04/07/25 14:25 Glucose 259 mg/dL (65-115) H 04/07/25 14:25 Calculated Osmolality 301 mOsm/kg (285-295) H 04/07/25 14:25 Calcium 8.8 mg/dL (8.5-10.5) 04/07/25 14:25 Total Bilirubin 0.2 mg/dL (0.15-1.2) 04/07/25 14:25 AST 38 U/L (0-40) 04/07/25 14:25 ALT 27 U/L (0-41) 04/07/25 14:25 Alkaline Phosphatase 65 U/L (40-130) 04/07/25 14:25 Troponin T Baseline 19 ng/L (0-15) H 04/07/25 14:25 Troponin T 120 Minute 18.71 ng/L (0-15) H 04/07/25 16:31 Delta Troponin T -0.29 ABS# (0-10) L 04/07/25 16:31 NT-Pro-B Natriuret Pep 1223 pg/mL (0-125) H 04/07/25 14:25 Total Protein 6.5 g/dL (6.6-8.7) L 04/07/25 14:25 Albumin 4.1 g/dL (3.5-5.2) 04/07/25 14:25 Globulin 2.4 g/dL (1.3-4.6) 04/07/25 14:25 Lipase 97 U/L (13-60) H 04/07/25 14:25 All radiology interpretation(s) finalized by discharge Discharge Plan Discharge Patient Disposition: Home Clinical Impression: Atypical chest pain Condition: Stable Prescriptions: No Action (DME) blood-glucose meter [Accu-Chek Guide Glucose Meter] Misc See Rx Instructions .ROUTE .MEDSUPPLY Qty: 1 0RF Rx Instructions: As directed (DME) lancets [Accu-Chek Fastclix Lancet Drum] Misc See Rx Instructions .ROUTE .MEDSUPPLY Qty: 200 3RF Rx Instructions: three times/day (DME) Diabetic shoes with molded inserts See Rx Instructions .Route .MEDSUPPLY Qty: 1 0RF Rx Instructions: As directed fenofibrate nanocrystallized 145 mg tablet 145 mg PO DAILY ergocalciferol (vitamin D2) 50,000 unit capsule 50,000 unit PO Q30D Rx Instructions: FIRST SUNDAY OF THE MONTH (DME) pen needle, diabetic 31 gauge x 1/4 needle See Rx Instructions .Route Qty: 100 3RF Rx Instructions: As directed (DME) Diabetic shoes with 3 pairs of inserts See Rx Instructions .Route .MEDSUPPLY Qty: 1 0RF Rx Instructions: As directed ketoconazole 2 % shampoo See Rx Instructions .ROUTE .COMPLEX Rx Instructions: Apply to scalp 2 or 3 times weekly, let sit 5 minutes, then rinse. prednisone 10 mg tablet See Rx Instructions PO .COMPLEX PRN (Reason: joint pain) Qty: 30 1RF Rx Instructions: Take 1 tablet by mouth daily for 3-7 days as needed for joint pain flare. dapagliflozin propanediol [Farxiga] 10 mg tablet 10 mg PO DAILY Qty: 90 3RF nitroglycerin [Nitrostat] 0.4 mg tablet, sublingual 0.4 mg SUBLINGUAL DIRECTED PRN (Reason: CHEST PAIN) Qty: 25 3RF pregabalin [Lyrica] 25 mg capsule 25 mg PO BID PRN (Reason: nerve pain) Qty: 60 0RF magnesium chelate, malate 125 mg magnesium capsule 125 mg PO BID psyllium husk [Fiber (psyllium husk)] 0.52 gram capsule 0.52 g PO BID acyclovir 5 % ointment 1 applic topical 6XD PRN (Reason: fever blisters and rash areas) acetaminophen [Tylenol Arthritis Pain] 650 mg tablet extended release 650 mg PO Q12H Mounjaro 12.5 mg/0.5 mL pen injector 12.5 mg SUBCUT Q7D (DME) Diabetic shoes See Rx Instructions .ROUTE .MEDSUPPLY Qty: 1 0RF Rx Instructions: With 3 pairs of inserts made by HOME ondansetron HCl 4 mg tablet 4 mg PO .prn nausea (DME) Diabetic shoes with inserts See Rx Instructions .Route .MEDSUPPLY Qty: 1 0RF Rx Instructions: As directed (DME) pen needle, diabetic [BD Gabriella 2nd Gen Pen Needle] 32 gauge x 5/32 needle See Rx Instructions .Route Qty: 100 3RF Rx Instructions: As directed ([facility]) FreeStyle Huma 2 [place] Misc See Rx Instructions .Route Qty: 1 0RF Rx Instructions: Check BS 4 -6 times a day. ([facility] [place]) FreeStyle Huma 2 Sensor Kit See Rx Instructions .Route Qty: 6 3RF Rx Instructions: Change every 14 days. ([facility]) Accu-Chek Guide test strips Strip See Rx Instructions .ROUTE .COMPLEX Qty: 300 0RF Dose Instruction: USE 1 THREE TIMES DAILY *E11.65* Rx Instructions: USE 1 THREE TIMES DAILY *E11.65* eplerenone 25 mg tablet 25 mg PO DAILY Qty: 90 3RF Xarelto 20 mg tablet See Rx Instructions .ROUTE .COMPLEX Qty: 90 3RF Dose Instruction: TAKE 1 TABLET BY MOUTH DAILY Rx Instructions: TAKE 1 TABLET BY MOUTH DAILY furosemide [Lasix] 40 mg tablet 20 mg PO BID Qty: 90 3RF Rx Instructions: Take in AM and at 2 PM metoprolol tartrate 50 mg tablet 100 mg PO BID Qty: 360 3RF aspirin 81 mg tablet,delayed release (DR/EC) 81 mg PO DAILY Qty: 90 2RF pantoprazole 40 mg tablet,delayed release (DR/EC) 40 mg PO BID Qty: 180 3RF hydralazine 25 mg tablet 25 mg PO TID Qty: 270 4RF triamcinolone acetonide 0.1 % cream 1 applic topical BID PRN (Reason: joint inflamation) diclofenac sodium 1 % gel 4 g topical QID PRN (Reason: Pain, Mild) Rx Instructions: 4 grams topically 4 times daily as needed ketoconazole 2 % cream See Rx Instructions .ROUTE .COMPLEX Rx Instructions: APPLY TWICE DAILY TO AFFECTED AREAS ON FACE FOR 4 WEEKS THEN NEEDED. insulin glargine U-300 conc [Toujeo Max U-300 SoloStar] 300 unit/mL (3 mL) insulin pen 60 unit SUBCUT QAM isosorbide mononitrate 30 mg tablet extended release 24 hr 60 mg PO DAILY allopurinol 100 mg tablet 200 mg PO QPM leflunomide 20 mg tablet 20 mg PO QAM verapamil 240 mg tablet extended release 240 mg PO QAM insulin lispro 100 unit/mL insulin pen 50 unit SUBCUT TID ezetimibe 10 mg tablet 10 mg PO DAILY metolazone 2.5 mg tablet 2.5 mg PO DAILY PRN (Reason: weight gain) Qty: 30 2RF Rx Instructions: Take for weight gain greater than 3 pounds in 24 hours, or 5 pounds in a week. potassium chloride [Klor-Con M20] 20 mEq Tablet,Er Particles/Crystals 20 meq PO BID Qty: 60 2RF insulin glargine [Lantus Solostar U-100 Insulin] 100 unit/mL (3 mL) insulin pen 64 unit SUBCUT DAILY Discharge Orders: Discharge ED (Routine); Ordered 04/07/25 Ordered By: Tom Avalos Referrals: Samantha Vinson DO [Primary Care Provider, ENVIRONMENTAL ADVISOR] Patient Instructions: Chest Pain (ED), Patient Portal & Jamey Instructions Activity Restrictions/Additional Instructions: Discharge Instructions Diagnosis: Chest pain, cardiac causes ruled out Summary of Your Visit: You came to the emergency department today with chest pain. We performed a thorough evaluation to check your heart, including: - Blood tests (troponin levels) to check for heart damage - Electrocardiogram (ECG) to check your heart rhythm - Chest X-ray - CT scan to rule out blood clots in your lungs All of these tests were reassuring and did not show evidence of a heart attack or other immediately dangerous conditions. What This Means: Based on your test results and evaluation, you are considered low-risk for a heart problem. Patients like you, with normal test results and low risk, can safely go home without additional urgent heart testing in the hospital. Important Follow-Up: - Call your local company flatbed truck driver's office tomorrow morning to schedule a follow-up appointment - Your local company flatbed truck driver has been notified of your emergency department visit - You should be seen within 2 weeks, and ideally within 1 week - This follow-up is important to review your symptoms and discuss any additional testing or treatment you may need When to Return to the Emergency Department: Come back to the emergency department or call 911 if you experience: - Chest pain that is severe, prolonged (lasting more than 5 minutes), or different from what you experienced today - Chest pain with shortness of breath, sweating, nausea, or lightheartedness - Fainting or near-fainting - Rapid or irregular heartbeat that doesn't go away - Difficulty breathing Medications: Continue taking all your current medications as prescribed unless your local company flatbed truck driver tells you otherwise. Activity: You may resume your normal activities, but avoid strenuous exercise until you see your local company flatbed truck driver. Questions? If you have any questions or concerns before your follow-up appointment, contact your local company flatbed truck driver's office. Print Language: [place] Coding Level of Care Code ED Manager Mobility for Chg Fwd Heart Score HEART Score Components History: Moderately Suspicious EKG: Normal Age: 65 or more yrs Risk Factors: >/=3 Risk Factors Troponin: Baseline Trop 16-45 ng/L HEART Score RESULT HEART Score: 6 Documented by User: Qamar Morales DO 04/07/25 20:58 HPI - Chest Pain 2 General: Chief Complaint: Chest Pain Stated Complaint: cp, sob Time Seen by Provider: 04/07/25 14:01 Related Data Home Medications ?Medication ?Instructions ?Recorded ?Confirmed ergocalciferol (vitamin D2) 1,250 50,000 unit PO Q30D 05/22/19 04/01/25 mcg (50,000 unit) capsule fenofibrate nanocrystallized 145 145 mg PO DAILY 05/2204/01/25 mg tablet diclofenac sodium 1 % topical gel 4 g topical QID PRN Pain, Mild 06/19/19 04/01/25 triamcinolone acetonide 0.1 % 1 applic topical BID PRN joint 04/11/21 04/01/25 topical cream inflamation acyclovir 5 % topical ointment 1 applic topical 6XD OR N fever 09/05/23 04/01/25 blisters and rash areas magnesium chelate, malate 125 mg PO BID 09/05/2304/01 psyllium husk 0.52 gram capsule 0.52 g PO BID 09/05/23 04/01/25 (Fiber (psyllium husk)) ketoconazole 2 % shampoo See Rx Instructions .Route . COMPLEX 03/12/24 04/01/25 acetaminophen 650 mg 650 mg PO Q12H 10/08/2403/08 tablet,extended release (Tylenol Arthritis Pain) tirzepatide 12.5 mg/0.5 mL 12.5 mg SUBCUT Q7D 10/08/24 04/01/25 subcutaneous pen injector (Mounjaro) allopurinol 100 mg tablet 200 mg PO QPM 12/10/2404/01 ezetimibe 10 mg tablet 10 mg PO DAILY 12/10/2403/08 insulin glargine U-300 conc 300 60 unit SUBCUT QAM 10/2904/01/25 unit/mL (3 mL) subcutaneous pen (Toujeo Max U-300 SoloStar) insulin lispro 100 unit/mL 50 unit SUBCUT TID 12/10/24 04/01/25 subcutaneous pen isosorbide mononitrate 30 mg 60 mg PO DAILY 12/10/24 1 06/01/24 tablet,extended release 24 hr ketoconazole 2 % topical cream See Rx Instructions .Ro [place] 12/10/24 04/01/25 .COMPLEX affected leflunomide 20 mg tablet 20 mg PO QAM 12/10/24 verapamil 240 mg tablet,extended 240 mg PO QAM 5 04/01/25 release ondansetron HCl 4 mg tablet 4 mg PO .prn nausea 04/01/25 insulin glargine 100 unit/mL (3 64 unit SUBCUT DAILY 1 06/01/24 04/01/25 mL) subcutaneous pen (Lantus Solostar U-100 Insulin) Previous Rx's ?Medication ?Instructions ?Recorded blood-glucose meter (Accu-Chek #1 ea 01/21/20 Guide Glucose Meter) Diabetic shoes with inserts #1 ea 02/04/20 lancets (Accu-Chek Fastclix Lancet #200 ea 03/04/20 Drum) Diabetic shoes with molded inserts #1 ea 09/14/20 pen needle, diabetic 31 gauge x #100 ea 03/18/2105/10 pen needle, diabetic 32 gauge x #100 ea 03/28/21 (BD Gabriella 2nd Gen Pen Needle) Diabetic shoes with 3 pairs of #1 ea 11/01/21 inserts flash glucose scanning reader #1 ea 02/21/22 (FreeStyle Huma 2 [place]) flash glucose sensor (FreeStyle #6 ea 02/21/22 Huma 2 Sensor kit) blood sugar diagnostic (Accu-Chek #300 ea 11/19/23 Guide test strips) eplerenone 25 mg tablet 25 mg PO DAILY #90 tabs 10/05 11/28 prednisone 10 mg tablet See Rx Instructions PO .COMP MICHEAL 11/17/24 PRN joint pain #30 tabs metolazone 2.5 mg tablet 2.5 mg PO DAILY PRN weight g ain 12/16/24 #30 tabs potassium chloride 20 mEq 20 meq PO BID #60 tabs 12/16 tablet,extended release(part/cryst) (Klor-Con M) rivaroxaban 20 mg tablet (Xarelto) See Rx Instructions .Route 12/25/24 .COMPLEX #90 tabs dapagliflozin propanediol 10 mg 10 mg PO DAILY #90 tab s 01/01/25 tablet (Farxiga) nitroglycerin 0.4 mg sublingual 0.4 mg sublingual D IRECTED PRN 01/01/25 tablet (Nitrostat) CHEST PAIN #25 tabs Diabetic shoes #1 ea 01/27/25 pregabalin 25 mg capsule (Lyrica) 25 mg PO BID PRN ner ve pain #60 01/27/25 caps furosemide 40 mg tablet (Lasix) 20 mg (1/2 x 40 mg) PO BID #90 tabs 02/19/25 metoprolol tartrate 50 mg tablet 100 mg (2 x 50 mg) PO BID #360 tabs 03/04/25 aspirin 81 mg tablet,delayed 81 mg PO DAILY #90 tabs 1 05/16/24 release pantoprazole 40 mg tablet,delayed 40 mg PO BID #180 ta bs 03/17/25 release hydralazine 25 mg tablet 25 mg PO TID #270 tabs 03/24 Allergies Allergy/AdvReac Type Severity Reaction Status Date / Time empagliflozin (From Allergy Severe difficult Verified 04/07/25 13:38 Jardiance) breathing linaclotide (From Linzess) Allergy Unknown Hypertension; Verified 04/07/25 13:38 Afib metformin Allergy Unknown ADR-Diarrhe Verified 04/07/25 13:38 a naproxen Allergy Unknown Affects Verified 04/07/25 13:38 kidney fuctions Hmfrrgn-QBN-BpG Reductase Allergy Unknown Severe Verified 04/07/25 13:38 Inhibitor (Idplvos-Tmx-Ibd Muscle Pain Reductase Inhibitor) Sulfa (Sulfonamide Allergy Unknown ADR-Itching Verified 04/07/25 13:38 Antibiotics) baclofen Allergy Affects Verified 04/07/25 13:38 kidney fuctions NSAIDS (Non-Steroidal Allergy Affects Verified 04/07/25 13:38 Anti-Inflamma Kidney functions tramadol AdvReac Intermediate aggression Verified 04/07/25 13:38 topiramate (From Topamax) AdvReac Mild ADR-Irritab Verified 04/07/25 13:38 le [facility] ED 2 PFSH: Medical History Dysphagia Blood transfusion declined because patient is [facility] Chronic anticoagulation Melena Hypertrophy of uvula Diabetes type 2, uncontrolled COVID-19 COVID Dehydration Acute kidney injury superimposed on CKD Hypertrophy of uvula Retrosternal thyroid goiter Dyspnea LINDA on CPAP Ventral incisional hernia Substernal thyroid goiter Diverticulosis Rectal polyp External hemorrhoids with complication Rectal bleeding Morbid obesity with BMI of 60.0-69.9, adult Vitamin D deficiency Hyperlipidemia Anemia Morbid obesity Uncontrolled type 2 diabetes mellitus Diabetic neuropathy Stage 3 chronic kidney disease due to diabetes mellitus Neuropathy Rheumatoid arthritis In remission Carpal tunnel syndrome Osteoarthritis Gout CKD (chronic kidney disease) stage 3, GFR 30-59 ml/min Seronegative rheumatoid arthritis in remission Otalgia Chest pain Patient underwent coronary angiogram which was normal GERD (gastroesophageal reflux disease) Renal insufficiency Improved after IV fluid Diastolic heart failure Atrial fibrillation on anticoagulation Surgical History History of uvulectomy S/P skin cancer resection History of colonoscopy S/P appendectomy S/P thyroid surgery S/P tonsillectomy S/P hernia repair S/P trigger finger release S/P carpal tunnel release 2x left S/P cervical disc replacement History of esophagogastroduodenoscopy (EGD) Family History Father Cancer Prostate Hypertension Hypercholesterolemia Heart disease Mother Hypertension Hypercholesterolemia Anesthesia complication Daughter Anesthesia complication Denies family history of Bleeding disorder Social History Smoking and tobacco/nicotine status: never used tobacco/nicotine Alcohol intake: former Substance/Drug Use: never Lives independently: Yes Household members: spouse Marital status: Current occupational status: disabled Alexandra/[employer]: [facility] Special alexandra needs: Yes Agree to transfusion: No Course 2 Vital Signs: Vital signs: Vital Signs Temperature 97.9 F 04/07/25 13:22 Pulse Rate 79 04/07/25 17:27 Respiratory Rate 20 H 04/07/25 13:22 Blood Pressure 169/100 04/07/25 17:27 Pulse Oximetry 97 04/07/25 17:27 Oxygen Delivery Me thod Room Air 04/07/25 13:22 MDM - Chest Pain Medical Decision Making Patient presented for chest pain that had been gradually increasing throughout the day. This patient was admitted to the hospital a couple of months ago where he had full cardiac workup including cardiac cath which was reviewed and unremarkable, also echocardiogram. He does have a history of heart failure, but no significant signs of fluid overload at time of exam. Chest pain had been unrelieved by 2 nitroglycerin. He had endorsed that it was a pressure radiating towards his back and into his neck. His baseline troponin 19, which is not different from previous and his delta troponin is negative. His BNP is not significantly elevated either from baseline, and the rest of his lab work unremarkable. Chest x-ray normal. Chest CTA ordered and does not demonstrate any signs of PE or dissection. I spoke to the patient afterwards to inform him of his reassuring workup, tells me that he wants to see if he can be placed in observation overnight. His local company flatbed truck driver is Dr. Chavez, who I spoke to and agrees that being that he recently had full cardiac workup there is no reason to admit at this time and that he can follow-up as an outpatient and return if his condition worsens for reevaluation. I relayed to the patient I had spoken to his personal local company flatbed truck driver, and the patient endorses relief from this and states he is comfortable with this plan. He understands to return if his condition worsens, all other questions and concerns addressed at this time. Vitals have remained stable throughout ED course. Chart reviewed Lab Data 04/07/25 14:25 04/07/25 14:25 Radiology Impressions Chest X-Ray 04/07/25 14: IMPRESSION: 1. No acute cardiopulmonary finding. Chest CTA 04/07/25 15:43 IMPRESSION: 1. Limited study. No acute pulmonary embolus. 2. 4.4 cm ascending thoracic aorta. Laboratory Results WBC 8.50 10^3/uL (3.29-11.43) 04/07/25 14: RBC 4.93 10^6/uL (3.85-5.65) 04/07/25 14: Hgb 12.90 g/dL (11.27-16.99) 04/07/25 14: Hct 42.2 % (37-53) 04/07/25 14: MCV 85.6 fl (82-101) 04/07/25 14: MCH 26.2 pg (27-33) L 04/07/25 14:25 MCHC 30.6 g/dL (30-55) 04/07/25 14: RDW 14.2 % (12.1-15.1) 04/07/25 14: Plt Count 196 10^3/cmm (157-399) 04/07/25 14: MPV 9.8 fL (7.4-10.4) 04/07/25 14: Neut % (Auto) 69.7 % 04/07/25 14:25 Lymph % (Auto) 19.2 % 04/07/25 14:25 Carolina % (Auto) 8.5 % 04/07/25 14:25 Eos % (Auto) 1.3 % 04/07/25 14: Baso % (Auto) 0.8 % 04/07/25 14: Neut # (Auto) 5.93 10^3/uL (1.8-7.7) 04/07/25 14: Lymph # (Auto) 1.6 10^3/uL (0.8-4.8) 04/07/25 14:25 Carolina # (Auto) 0.7 10^3/uL (0.2-0.9) 04/07/25 14:25 Eos # (Auto) 0.1 10^3/uL (0.0-0.8) 04/07/25 14:25 Baso # (Auto) 0.1 10^3/uL (0.0-0.1) 04/07/25 14: Nucleated RBC % (auto) 0 % 04/07/25 14: Nucleated RBCs # 0.0 /100WBC 04/07/25 14:25 PT 21.60 SECONDS (12.1-14.9) H 04/07/25 14:25 INR 1.76 (0.8-1.2) H 04/07/25 14: APTT 32.3 SECONDS (23.9-36.7) 04/07/25 14:25 Sodium 139 mmol/L (136-145) 04/07/25 14:25 Potassium 4.2 mmol/L (3.5-5.1) 04/07/25 14:25 Chloride 99 mmol/L (98-107) 04/07/25 14: Carbon Dioxide 26 mmol/L (22-29) 04/07/25 14:25 Anion Gap 18.2 (5-19) 04/07/25 14:25 BUN 23 mg/dL (8-23) 04/07/25 14:25 Creatinine 1.3 mg/dL (0.7-1.2) H 04/07/25 14:25 GFR Calculation 54.7 mL/min (90-130) L 04/07/25 14:25 Glucose 259 mg/dL (65-115) H 04/07/25 14:25 Calculated Osmolality 301 mOsm/kg (285-295) H 04/07/25 14:25 Calcium 8.8 mg/dL (8.5-10.5) 04/07/25 14:25 Total Bilirubin 0.2 mg/dL (0.15-1.2) 04/07/25 14:25 AST 38 U/L (0-40) 04/07/25 14:25 ALT 27 U/L (0-41) 04/07/25 14:25 Alkaline Phosphatase 65 U/L (40-130) 04/07/25 14:25 Troponin T Baseline 19 ng/L (0-15) H 04/07/25 14:25 Troponin T 120 Minute 18.71 ng/L (0-15) H 04/07/25 16:31 Delta Troponin T -0.29 ABS# (0-10) L 04/07/25 16:31 NT-Pro-B Natriuret Pep 1223 pg/mL (0-125) H 04/07/25 14:25 Total Protein 6.5 g/dL (6.6-8.7) L 04/07/25 14:25 Albumin 4.1 g/dL (3.5-5.2) 04/07/25 14:25 Globulin 2.4 g/dL (1.3-4.6) 04/07/25 14:25 Lipase 97 U/L (13-60) H 04/07/25 14:25 Discharge Plan Discharge Patient Disposition: Home Clinical Impression: Atypical chest pain Condition: Stable Prescriptions: No Action (DME) blood-glucose meter [Accu-Chek Guide Glucose Meter] Misc See Rx Instructions .ROUTE .MEDSUPPLY Qty: 1 0RF Rx Instructions: As directed (DME) lancets [Accu-Chek Fastclix Lancet Drum] [facility] See Rx Instructions .ROUTE .MEDSUPPLY Qty: 200 3RF Rx Instructions: three times/day (DME) Diabetic shoes with molded inserts See Rx Instructions .Route .MEDSUPPLY Qty: 1 0RF Rx Instructions: As directed fenofibrate nanocrystallized 145 mg tablet 145 mg PO DAILY ergocalciferol (vitamin D2) 50,000 unit capsule 50,000 unit PO Q30D Rx Instructions: FIRST SUNDAY OF THE MONTH (DME) pen needle, diabetic 31 gauge x 1/4 needle See Rx Instructions .Route Qty: 100 3RF Rx Instructions: As directed (DME) Diabetic shoes with 3 pairs of inserts See Rx Instructions .Route .MEDSUPPLY Qty: 1 0RF Rx Instructions: As directed ketoconazole 2 % shampoo See Rx Instructions .ROUTE .COMPLEX Rx Instructions: Apply to scalp 2 or 3 times weekly, let sit 5 minutes, then rinse. prednisone 10 mg tablet See Rx Instructions PO .COMPLEX PRN (Reason: joint pain) Qty: 30 1RF Rx Instructions: Take 1 tablet by mouth daily for 3-7 days as needed for joint pain flare. dapagliflozin propanediol [Farxiga] 10 mg tablet 10 mg PO DAILY Qty: 90 3RF nitroglycerin [Nitrostat] 0.4 mg tablet, sublingual 0.4 mg SUBLINGUAL DIRECTED PRN (Reason: CHEST PAIN) Qty: 25 3RF pregabalin [Lyrica] 25 mg capsule 25 mg PO BID PRN (Reason: nerve pain) Qty: 60 0RF magnesium chelate, malate 125 mg magnesium capsule 125 mg PO BID psyllium husk [Fiber (psyllium husk)] 0.52 gram capsule 0.52 g PO BID acyclovir 5 % ointment 1 applic topical 6XD PRN (Reason: fever blisters and rash areas) acetaminophen [Tylenol Arthritis Pain] 650 mg tablet extended release 650 mg PO Q12H Mounjaro 12.5 mg/0.5 mL pen injector 12.5 mg SUBCUT Q7D (DME) Diabetic shoes See Rx Instructions .ROUTE .MEDSUPPLY Qty: 1 0RF Rx Instructions: With 3 pairs of inserts made by HOME ondansetron HCl 4 mg tablet 4 mg PO .prn nausea (DME) Diabetic shoes with inserts See Rx Instructions .Route .MEDSUPPLY Qty: 1 0RF Rx Instructions: As directed (DME) pen needle, diabetic [BD Gabriella 2nd Gen Pen Needle] 32 gauge x 5/32 needle See Rx Instructions .Route Qty: 100 3RF Rx Instructions: As directed ([facility]) FreeStyle Huma 2 [place] Misc See Rx Instructions .Route Qty: 1 0RF Rx Instructions: Check BS 4 -6 times a day. ([facility]) FreeStyle Huma 2 Sensor Kit See Rx Instructions .Route Qty: 6 3RF Rx Instructions: Change every 14 days. ([facility]) Accu-Chek Guide test strips Strip See Rx Instructions .ROUTE .COMPLEX Qty: 300 0RF Dose Instruction: USE 1 THREE TIMES DAILY *E11.65* Rx Instructions: USE 1 THREE TIMES DAILY *E11.65* eplerenone 25 mg tablet 25 mg PO DAILY Qty: 90 3RF Xarelto 20 mg tablet See Rx Instructions .ROUTE .COMPLEX Qty: 90 3RF Dose Instruction: TAKE 1 TABLET BY MOUTH DAILY Rx Instructions: TAKE 1 TABLET BY MOUTH DAILY furosemide [Lasix] 40 mg tablet 20 mg PO BID Qty: 90 3RF Rx Instructions: Take in AM and at 2 PM metoprolol tartrate 50 mg tablet 100 mg PO BID Qty: 360 3RF aspirin 81 mg tablet,delayed release (DR/EC) 81 mg PO DAILY Qty: 90 2RF pantoprazole 40 mg tablet,delayed release (DR/EC) 40 mg PO BID Qty: 180 3RF hydralazine 25 mg tablet 25 mg PO TID Qty: 270 4RF triamcinolone acetonide 0.1 % cream 1 applic topical BID PRN (Reason: joint inflamation) diclofenac sodium 1 % gel 4 g topical QID PRN (Reason: Pain, Mild) Rx Instructions: 4 grams topically 4 times daily as needed ketoconazole 2 % cream See Rx Instructions .ROUTE .COMPLEX Rx Instructions: APPLY TWICE DAILY TO AFFECTED AREAS ON FACE FOR 4 WEEKS THEN NEEDED. insulin glargine U-300 conc [Toujeo Max U-300 SoloStar] 300 unit/mL (3 mL) insulin pen 60 unit SUBCUT QAM isosorbide mononitrate 30 mg tablet extended release 24 hr 60 mg PO DAILY allopurinol 100 mg tablet 200 mg PO QPM leflunomide 20 mg tablet 20 mg PO QAM verapamil 240 mg tablet extended release 240 mg PO QAM insulin lispro 100 unit/mL insulin pen 50 unit SUBCUT TID ezetimibe 10 mg tablet 10 mg PO DAILY metolazone 2.5 mg tablet 2.5 mg PO DAILY PRN (Reason: weight gain) Qty: 30 2RF Rx Instructions: Take for weight gain greater than 3 pounds in 24 hours, or 5 pounds in a week. potassium chloride [Klor-Con M20] 20 mEq Tablet,Er Particles/Crystals 20 meq PO BID Qty: 60 2RF insulin glargine [Lantus Solostar U-100 Insulin] 100 unit/mL (3 mL) insulin pen 64 unit SUBCUT DAILY Discharge Orders: Discharge ED (Routine); Ordered 04/07/25 Ordered By: Tom Avalos Referrals: Samantha Vinson DO [Primary Care Provider, ENVIRONMENTAL ADVISOR] Patient Instructions: Chest Pain (ED), Patient Portal & Jamey Instructions Activity Restrictions/Additional Instructions: Discharge Instructions Diagnosis: Chest pain, cardiac causes ruled out Summary of Your Visit: You came to the emergency department today with chest pain. We performed a thorough evaluation to check your heart, including: - Blood tests (troponin levels) to check for heart damage - Electrocardiogram (ECG) to check your heart rhythm - Chest X-ray - CT scan to rule out blood clots in your lungs All of these tests were reassuring and did not show evidence of a heart attack or other immediately dangerous conditions. What This Means: Based on your test results and evaluation, you are considered low-risk for a heart problem. Patients like you, with normal test results and low risk, can safely go home without additional urgent heart testing in the hospital. Important Follow-Up: - Call your local company flatbed truck driver's office tomorrow morning to schedule a follow-up appointment - Your local company flatbed truck driver has been notified of your emergency department visit - You should be seen within 2 weeks, and ideally within 1 week - This follow-up is important to review your symptoms and discuss any additional testing or treatment you may need When to Return to the Emergency Department: Come back to the emergency department or call 911 if you experience: - Chest pain that is severe, prolonged (lasting more than 5 minutes), or different from what you experienced today - Chest pain with shortness of breath, sweating, nausea, or lightheartedness - Fainting or near-fainting - Rapid or irregular heartbeat that doesn't go away - Difficulty breathing Medications: Continue taking all your current medications as prescribed unless your local company flatbed truck driver tells you otherwise. Activity: You may resume your normal activities, but avoid strenuous exercise until you see your local company flatbed truck driver. Questions? If you have any questions or concerns before your follow-up appointment, contact your local company flatbed truck driver's office. Print Language: [place] Coding Level of Care Code ED Manager Mobility for Marcelle Bang Heart Score HEART Score RESULT HEART Score: 6
--- OUTSIDE RECORDS SUMMARY | 2025-04-07 14:33 | XMS_ITS | Encounter Summary ---
Author Organization [facility] Address [address] [facility] Attn: Epic Prelude ADT POONAM MATA [address] Care Team Providers Care Program Evaluation Consultant Name Role Phone Unavailable Primary Care Provider Unavailabl e Encounter Details Date Type Department Care Team (Late st Contact Info) Description 11/30/2000 Outpatient Historical Fabrizio Cuello MD [address] [place] [address] [address] [place] [address] Social History Tobacco Use Types Packs/Day Years Used Date Smoking Tobacco: Never Assessed Sex and Gender Information Value Date Recorded Sex Assigned at Not on file 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
--- OUTSIDE RECORDS SUMMARY | 2025-04-07 14:33 | XMS_ITS | Clinical Summary ---
Author Organization [employer] 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
--- OUTSIDE RECORDS SUMMARY | 2025-04-07 14:33 | XMS_ITS | Encounter Summary ---
Author Organization [facility] Address [address] [facility] Attn: Epic Prelude ADT [place]ONAM M[place] [address] Care Team Providers Care Administrative Support Assoc Name Role Phone Unavailable Primary Care Provider Unavailabl e Encounter Details Date Type Department Care Team (Late st Contact Info) Description 02/24/2002 Outpatient Historical Fabrizio Cuello MD [address] [place] [address] [address] [place] [address] Social History Tobacco Use Types Packs/Day Years Used Date Smoking Tobacco: Never Assessed Sex and Gender Information Value Date Recorded Sex Assigned at Not on file 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
--- OUTSIDE RECORDS SUMMARY | 2025-04-07 14:33 | XMS_ITS | Encounter Summary ---
Author Organization [facility] Address [address] [facility] Attn: Epic Prelude ADT [place]ONAM M[place] [address] Care Team Providers Care Carpenter Name Role Phone Unavailable Primary Care Provider Unavailabl e Encounter Details Date Type Department Care Team (Late st Contact Info) Description 02/18/2002 Outpatient Historical Fabrizio Cuello MD [address] [place] [address] [address] [place] [address] Social History Tobacco Use Types Packs/Day Years Used Date Smoking Tobacco: Never Assessed Sex and Gender Information Value Date Recorded Sex Assigned at Not on file 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
--- OUTSIDE RECORDS SUMMARY | 2025-04-07 14:33 | XMS_ITS | Encounter Summary ---
Author Organization [employer] 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
--- OUTSIDE RECORDS SUMMARY | 2025-04-07 14:33 | XMS_ITS | Encounter Summary ---
Author Organization [facility] Address [address] [facility] Attn: Epic Prelude ADT HUGOESTELLE POONAM G[place] [address] Care Team Providers Care Teacher Cclc Name Role Phone Unavailable Primary Care Provider Unavailabl e Encounter Details Date Type Department Care Team (Late st Contact Info) Description 12/18/2000 Inpatient Historical Fabrizio Cuello MD [address] [facility] [address] [place] [address] Social History Tobacco Use Types Packs/Day Years Used Date Smoking Tobacco: Never Assessed Sex and Gender Information Value Date Recorded Sex Assigned at Not on file 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
[2025-04-07 14:37] LABS: Hematocrit 42.2 % (37-53); Hemoglobin 12.90 g/dL (11.27-16.99); Mean Corpuscular HGB Conc 30.6 g/dL (30-55); Mean Corpuscular Hemoglobin 26.2 pg (27-33); Mean Corpuscular Volume 85.6 fl (82-101); Nucleated Red Blood Cells % 0 %; Platelet Count 196 10^3/cmm (157-399); Red Blood Count 4.93 10^6/uL (3.85-5.65); White Blood Count 8.50 10^3/uL (3.29-11.43)
[2025-04-07 14:50] LABS: INR 1.76 (0.8-1.2); Prothrombin Time 21.60 SECONDS (12.1-14.9)
[2025-04-07 14:51] LABS: Partial Thromboplastin Time 32.3 SECONDS (23.9-36.7)
[2025-04-07 14:56] LABS: Troponin(5th) Baseline 19 ng/L (0-15)
[2025-04-07 15:18] LABS: Alanine Aminotransferase 27 U/L (0-41); Albumin Level 4.1 g/dL (3.5-5.2); Alkaline Phosphatase 65 U/L (40-130); Aspartate Amino Transferase 38 U/L (0-40); Blood Urea Nitrogen 23 mg/dL (8-23); Calcium 8.8 mg/dL (8.5-10.5); Carbon Dioxide 26 mmol/L (22-29); Chloride 99 mmol/L (98-107); Globulin 2.4 g/dL (1.3-4.6); Glucose 259 mg/dL (65-115); Lipase 97 U/L (13-60); NT Pro B Type Natriuretic Pept 1223 pg/mL (0-125); Osmolality Calculated 301 mOsm/kg (285-295); Sodium 139 mmol/L (136-145); Total Protein 6.5 g/dL (6.6-8.7)
[2025-04-07 15:19] LABS: Anion Gap 18.2 (5-19); Potassium 4.2 mmol/L (3.5-5.1)
--- NOTE | 2025-04-07 15:43 | CTR_ITS ---
PROCEDURE INFORMATION: Exam: CTA Chest With Contrast Exam date and time: 04/07/2025 4:00 PM Age: 69 years old Clinical indication: Pain; Angina pectoris; Additional info: Chest pain, SOB TECHNIQUE: Imaging protocol: Computed tomographic angiography of the chest with contrast. Exam focused on the arteries. 3D rendering (Not supervised by radiologist): MIP and/or 3D reconstructed images were created by the technologist. Radiation optimization: All CT scans at this facility use at least one of these dose optimization techniques: automated exposure control; mA and/or kV adjustment per patient size (includes targeted exams where dose is matched to clinical indication); or iterative reconstruction. Contrast material: [id number]; Contrast volume: 100 ml; Contrast route: INTRAVENOUS (IV); COMPARISON: CT angio chest [id number] 09/10/2021 2:35 PM RADIATION DOSE METRICS: Total DLP (mGy-cm): 524.2 FINDINGS: Pulmonary arteries: Diminished pulmonary arterial opacification limits evaluation. No acute pulmonary embolus. Linear filling defect near the origin of the medial basal right lower lobe pulmonary artery on image 241 of series 6 is unchanged and could be related to a prominent wall at a bifurcation/branch point. Aorta: 4.4 cm ascending thoracic aortic aneurysm at the level of the right main pulmonary artery. Systemic aortic and coronary artery plaque. Lungs: Left upper lobe subpleural calcification. Somewhat diminished volume of the left hemithorax. Pleural spaces: Unremarkable. No pneumothorax. No pleural effusion. Heart: Unremarkable. No cardiomegaly. No pericardial effusion. Lymph nodes: Unremarkable. No enlarged lymph nodes. Bones/joints: Spinal spondylosis. Soft tissues: Gynecomastia. CT/CT angio chest PE protcl [id number] IMPRESSION: 1. Limited study. No acute pulmonary embolus. 2. 4.4 cm ascending thoracic aorta.
[2025-04-07] MEDS: iohexol 350 mg/mL 500 mL Btl (per mL) IV (16:03)
--- NOTE | 2025-04-07 16:12 | ECG_ITS ---
[facility]07 Pat Name: Mauro Solis Department: Room: Gender: Male Hotel Controller: : 1955 Requested By: Bharti Abdalla Order Number: [id number] Sandi MD: Robb Banegas M.D. Measurements Intervals [place] Rate: 84 P: 0 DC: 0 QRS: -52 QRSD: 116 T: 70 QT: 383 QTc: 455 Interpretive Statements ATRIAL FIBRILLATION LEFT AXIS DEVIATION [QRS AXIS < -30] INCOMPLETE RIGHT BUNDLE BRANCH BLOCK [90+ ms QRS DURATION, TERMINAL R IN V1/V2, 40+ ms S IN I/aVL/V4/V5/V6] Compared to ECG 04/07/2025 13:27:17 Incomplete right bundle-branch block now present Electronically Signed On 04-07-2025 20:31:16 STATISTICAL GENETICIST by Robb Banegas M.D. [email or web address]
[2025-04-07 16:22] VITALS: BP 169/100; PULSE 79; O2SAT 97
[2025-04-07] MEDS: FUROsemide 10 mg/mL SDV 10mL 60 MG IVP (17:06)
[2025-04-07 17:09] LABS: Troponin 5 2HR 18.71 ng/L (0-15)
[2025-04-07 17:10] LABS: Troponin 5 2HR Delta -0.29 ABS# (0-10)
[2025-04-07 17:27] VITALS: BP 169/100; PULSE 79; O2SAT 97
== END 2025-04-07 17:31 | disposition home or self-care (01) ==
PROVIDERS: Emergency Medicine; Emergency Provider Physician Assistant; PCP Family Medicine
DX: R07.89 Other chest pain (principal); Z79.4 Long term (current) use of insulin; E78.5 Hyperlipidemia, unspecified; E11.22 Type 2 diabetes mellitus with diabetic chronic kidney disease; I13.0 Hypertensive heart and chronic kidney disease with heart failure and stage 1 through stage 4 chronic kidney disease, or unspecified chronic kidney disease; N18.30 Chronic kidney disease, stage 3 unspecified; I50.30 Unspecified diastolic (congestive) heart failure; Z85.828 Personal history of other malignant neoplasm of skin
CPT/HCPCS: 36415; 71045; 71275; 80053; 83690; 83880; 84484; 85025; 85610; 85730; 93005; 96374; 99285; J1938; J9999

== ENCOUNTER → 2025-04-20 07:39 | Outpatient (BNVA) | payer MEDICARE, SELFPAY | PROVIDERS: PCP Family Medicine; Visit Provider Nurse Practitioner Family | DX: Z01.818 Encounter for other preprocedural examination (principal); I50.33 Acute on chronic diastolic (congestive) heart failure; I48.91 Unspecified atrial fibrillation; E11.22 Type 2 diabetes mellitus with diabetic chronic kidney disease; N18.30 Chronic kidney disease, stage 3 unspecified; Z79.4 Long term (current) use of insulin | CPT/HCPCS: 99214 ==

== ENCOUNTER 2025-04-22 10:51 | Inpatient (IN) | payer MEDICARE, SELFPAY ==
--- NOTE | 2025-04-21 22:44 | ANES.PREANE2 ---
Pre-Anesthetic Assessment Height/Weight: Height 5 ft 9 in Preop Diagnosis: Cervical stenosis Operation Date: 04/22/25 07:00 Proposed Procedures p Anterior Cervical Discectomy & Fusion ACDF(Not Applicable) - Jun Brooks, DO Was Beta Rosana taken within 24 hours: Yes Was Clonidine taken within 24 hours: N/A Social No alcohol and No tobacco Exam alert, oriented x 3, clear to auscultation bilaterally and regular rate & rhythm Airway Submandibular: within normal limits Cervical ROM: within normal limits Mallampati: Class III Dentition: full Comments: Comments: No uvula Anesthetic Plan ASA status: 4 Anesthesia: General Other: No prior issues with anesthesia NPO since yesterday evening History of IDDM, preop BS. On tirzepatide, last taken 04/03/2025. Preop BS 244, 10 units insulin given History of hypertension on metoprolol and verapamil. Metoprolol taken this a.m. GERD, on Protonix History of A-fib on chronic Xarelto. Last taken Stage III CKD METs less than 4 Patient weighs 375 pounds Patient recently saw cardiology, cardiac clearance received, echo performed earlier this year showing EF of 60% with no RWMA. Diastolic dysfunction noted Recent EKG showing A-fib, similar to previous Plan for GETA Medications/Allergies Home Medications ?Medication ?Instructions ?Recorded ?Confirmed ?Last Taken ?Type ergocalciferol (vitamin D2) 1,250 50,000 unit PO Q30D 05/22/19 04/21/25 04/07/25 History mcg (50,000 unit) capsule fenofibrate nanocrystallized 145 145 mg PO DAILY 05/22/19 04/21/25 04/21/25 History mg tablet diclofenac sodium 1 % topical gel 4 g topical QID PRN Pain, Mild 06/19/19 04/21/25 Unknown History blood-glucose meter (Accu-Chek #1 ea 01/21/20 04/01/25 Unknown Rx Guide Glucose Meter) Diabetic shoes with inserts #1 ea 02/04/20 04/01/25 Unknown Rx lancets (Accu-Chek Fastclix Lancet #200 ea 03/04/20 04/01/25 Unknown Rx Drum) Diabetic shoes with molded inserts #1 ea 09/14/20 04/01/25 Unknown Rx pen needle, diabetic 31 gauge x #100 ea 03/18/21 04/01/25 Unknown Rx 1/4 pen needle, diabetic 32 gauge x #100 ea 03/28/21 04/01/25 Unknown Rx (BD Gabriella 2nd Gen Pen Needle) triamcinolone acetonide 0.1 % 1 applic topical BID PRN joint 04/11/21 04/21/25 03/01/23 History topical cream inflamation Diabetic shoes with 3 pairs of #1 ea 11/01/21 04/01/25 Unknown Rx inserts flash glucose scanning reader #1 ea 02/21/22 04/01/25 Unknown Rx (FreeStyle Huma 2 [place]) flash glucose sensor (FreeStyle #6 ea 02/21/22 04/01/25 Unknown Rx Huma 2 Sensor kit) acyclovir 5 % topical ointment 1 applic topical 6XD PRN fever 09/05/23 04/21/25 Unknown History blisters and rash areas magnesium chelate, malate 125 mg PO BID 09/05/23 04/21/25 04/19/25 History psyllium husk 0.52 gram capsule 0.52 g PO BID 09/05/23 04/21/25 04/20/25 History (Fiber (psyllium husk)) blood sugar diagnostic (Accu-Chek #300 ea 11/19/23 04/01/25 Unknown Rx Guide test strips) ketoconazole 2 % shampoo See Rx Instructions .Route .COMPLEX 03/12/24 04/21/25 04/21/25 History acetaminophen 650 mg 650 mg PO Q12H 10/08/24 04/21/25 04/15/25 History tablet,extended release (Tylenol Arthritis Pain) tirzepatide 12.5 mg/0.5 mL 12.5 mg SUBCUT Q7D 10/08/24 04/21/25 04/03/25 History subcutaneous pen injector (Mounjaro) eplerenone 25 mg tablet 25 mg PO DAILY #90 tabs 10/21/24 04/21/25 04/21/25 Rx prednisone 10 mg tablet See Rx Instructions PO .COMPLEX 11/17/24 04/21/25 Unknown Rx PRN joint pain #30 tabs allopurinol 100 mg tablet 200 mg PO QPM 12/10/24 04/21/25 04/20/25 History ezetimibe 10 mg tablet 10 mg PO DAILY 12/10/24 04/21/25 04/21/25 History insulin lispro 100 unit/mL 50 unit SUBCUT TID 12/10/24 04/21/25 04/21/25 History subcutaneous pen isosorbide mononitrate 30 mg 60 mg PO DAILY 12/10/24 04/21/25 04/21/25 History tablet,extended release 24 hr ketoconazole 2 % topical cream See Rx Instructions .Route 12/10/24 04/21/25 Unknown History .COMPLEX affected leflunomide 20 mg tablet 20 mg PO QAM 12/10/24 04/21/25 04/21/25 History verapamil 240 mg tablet,extended 240 mg PO QAM 12/10/24 04/21/25 04/21/25 History release metolazone 2.5 mg tablet 2.5 mg PO DAILY PRN weight gain 12/16/24 04/21/25 04/20/25 Rx #30 tabs potassium chloride 20 mEq 20 meq PO BID #60 tabs 12/16/24 04/21/25 04/21/25 Rx tablet,extended release(part/cryst) (Klor-Con M) ondansetron HCl 4 mg tablet 4 mg PO .prn nausea 12/31/24 04/21/25 Unknown History dapagliflozin propanediol 10 mg 10 mg PO DAILY #90 tabs 01/01/25 04/21/25 04/21/25 Rx tablet (Farxiga) nitroglycerin 0.4 mg sublingual 0.4 mg sublingual DIRECTED PRN 01/01/25 04/21/25 Unknown Rx tablet (Nitrostat) CHEST PAIN #25 tabs Diabetic shoes #1 ea 01/27/25 04/01/25 Unknown Rx furosemide 40 mg tablet (Lasix) 20 mg (1/2 x 40 mg) PO BID #90 tabs 02/19/25 04/21/25 04/21/25 Rx metoprolol tartrate 50 mg tablet 100 mg (2 x 50 mg) PO BID #360 tabs 03/04/25 04/21/25 04/22/25 Rx aspirin 81 mg tablet,delayed 81 mg PO DAILY #90 tabs 03/16/25 04/21/25 04/15/25 Rx release pantoprazole 40 mg tablet,delayed 40 mg PO BID #180 tabs 03/17/25 04/21/25 04/22/25 Rx release hydralazine 25 mg tablet 25 mg PO TID #270 tabs 03/24/25 04/21/25 04/21/25 Rx insulin glargine 100 unit/mL (3 64 unit SUBCUT DAILY 04/01/25 04/21/25 04/21/25 History mL) subcutaneous pen (Lantus Solostar U-100 Insulin) rivaroxaban 20 mg tablet (Xarelto) 20 mg PO DAILY 04/20/25 04/21/25 04/15/25 History Allergies Allergy/AdvReac Type Severity Reaction Status Date / Time empagliflozin (From Allergy Severe difficult Verified 04/21/25 11:25 Jardiance) breathing linaclotide (From Linzess) Allergy Unknown Hypertension; Verified 04/21/25 11:25 Afib metformin Allergy Unknown ADR-Diarrhe Verified 04/21/25 11:25 a naproxen Allergy Unknown Affects Verified 04/21/25 11:25 kidney fuctions Wnyooat-TWN-QsY Reductase Allergy Unknown Severe Verified 04/21/25 11:25 Inhibitor (Uzsfdot-Ojj-Xkf Muscle Pain Reductase Inhibitor) Sulfa (Sulfonamide Allergy Unknown ADR-Itching Verified 04/21/25 11:25 Antibiotics) baclofen Allergy Affects Verified 04/21/25 11:25 kidney fuctions NSAIDS (Non-Steroidal Allergy Affects Verified 04/21/25 11:25 Anti-Inflamma Kidney functions tramadol AdvReac Intermediate aggression Verified 04/21/25 11:25 topiramate (From Topamax) AdvReac Mild ADR-Irritab Verified 04/21/25 11:25 [facility] Anesthesia Medical History Dysphagia Blood transfusion declined because patient is Voodoo Chronic anticoagulation Melena Hypertrophy of uvula Diabetes type 2, uncontrolled COVID-19 COVID Dehydration Acute kidney injury superimposed on CKD Hypertrophy of uvula Retrosternal thyroid goiter Dyspnea LINDA on CPAP Ventral incisional hernia Substernal thyroid goiter Diverticulosis Rectal polyp External hemorrhoids with complication Rectal bleeding Morbid obesity with BMI of 60.0-69.9, adult Vitamin D deficiency Hyperlipidemia Anemia Morbid obesity Uncontrolled type 2 diabetes mellitus Diabetic neuropathy Stage 3 chronic kidney disease due to diabetes mellitus Neuropathy Rheumatoid arthritis In remission Carpal tunnel syndrome Osteoarthritis Gout CKD (chronic kidney disease) stage 3, GFR 30-59 ml/min Seronegative rheumatoid arthritis in remission Otalgia Chest pain Patient underwent coronary angiogram which was normal GERD (gastroesophageal reflux disease) Renal insufficiency Improved after IV fluid Diastolic heart failure Atrial fibrillation on anticoagulation Surgical History History of uvulectomy S/P skin cancer resection History of colonoscopy S/P appendectomy S/P thyroid surgery S/P tonsillectomy S/P hernia repair S/P trigger finger release S/P carpal tunnel release 2x left S/P cervical disc replacement History of esophagogastroduodenoscopy (EGD) Family History Father Cancer Prostate Hypertension Hypercholesterolemia Heart disease Mother Hypertension Hypercholesterolemia Anesthesia complication Daughter Anesthesia complication Denies family history of Bleeding disorder Social History Smoking and tobacco/nicotine status: never used tobacco/nicotine Alcohol intake: former Substance/Drug Use: never Lives independently: Yes Household members: spouse Marital status: Current occupational status: disabled Alexandra/Yarsani: Voodoo Special alexandra needs: Yes Agree to transfusion: No Data Anesthesia Cardiac Studies: Echocardiogram 12/10/24
[2025-04-22] VITALS (22 sets, daily range): BP systolic 128–167; BP diastolic 72–103; PULSE 92–123; RESP 16–24; TEMP 36.2–37.3; O2SAT 87–97; BMI 54.6; BMI 54.9
--- NOTE | 2025-04-22 06:35 | SC_ITS ---
WS: [id number] C ARM fluoroscopy views of the cervical spine, 04/22/2025 Clinical Data: Surgery Comparison: Cervical spine, 12/30/2024 Findings: Dr. Brooks performed an anterior cervical disc fusion. SC/C-arm Fluoroscopy [id number] Impression: Anterior cervical disc fusion.
--- NOTE | 2025-04-22 06:36 | W.PM.OPSUD ---
Surgery/Procedure H&P Update DATE OF PROCEDURE: April 22, 2025 DATE H&P PERFORMED: 03/31/25 H&P UPDATE INFORMATION: I have reviewed H&P completed within last 30 days, I have examined patient prior to procedure and No changes to prior documentation PREOP DIAGNOSIS: Cervical stenosis with radiculopathy and myelopathy PLANNED PROCEDURE: Operation Date: 04/22/25 07:00 Proposed Procedures p Anterior Cervical Discectomy & Fusion ACDF(Not Applicable) - Jun Brooks DO
[2025-04-22] MEDS: insulin regular-human 100 units/1 mL 10 UNIT IVP (06:57)
[2025-04-22] MEDS: ceFAZolin 3,000 MG in sodium chloride 0.9% (plus) 100 ML 200 MG IV (07:08)
[2025-04-22] MEDS: lidocaine-epi 1% 20 mL INJ INJECTION (08:36)
--- NOTE | 2025-04-22 10:54 | P.OP_ITS ---
Operative Report Date of procedure: April 22, 2025 Pre-op diagnosis: Cervical stenosis with radiculopathy and myelopathy Post-op diagnosis: same Procedure done: 1. Anterior diskectomy C 3/4 2. Anterior discectomy C5/6 3. Insertion of cage C3/4 4. Corpectomy greater than 50% of the vertebrae of C5 5. Insertion of corpectomy cage C4-C6 6. Anterior instrumentation from C3-C6 7. Use of allograft 8. Removal of hardware Surgeon: Jun Brooks DO Estimated blood loss (mL): 100 Procedure: 1. Anterior diskectomy C 3/4 2. Anterior discectomy C5/6 3. Insertion of cage C3/4 4. Corpectomy greater than 50% of the vertebrae of C5 5. Insertion of corpectomy cage C4-C6 6. Anterior instrumentation from C3-C6 7. Use of allograft 8. Removal of hardware The patient was taken to the operating room, where he underwent general endotracheal anesthesia without complications. He was then positioned supine on the operating table, and all areas of impingement were well padded. The arms were carefully padded and tucked at his sides. A roll was placed between the shoulder blades.. An x-ray was done to determine the appropriate level for the skin incision. The entire neck was then sterilely prepped and draped in the usual fashion. Neuromonitoring was attached prior to prepping. A transverse skin incision was made and carried down to the platysma muscle. This was then split in line with its fibers. Blunt dissection was carried down medial to the carotid sheath and lateral to the trachea and esophagus until the anterior cervical spine was visualized. A needle was placed into a disc and an x-ray was done to determine its location. The longus colli muscles were then elevated bilaterally with the electrocautery unit. Self-retaining retractors were placed deep to the longus colli muscle. The C5-6 plate was identified. The interlocking screws at C5 and C6 were unscrewed. Then the screws from C5 and C6 were removed. The plate was then removed. Attention was brought to the C3/4 level that was confirmed on x-ray. A caspar pin was placed into the C3 vertebrae and the C4 vertebrae. The disk space was then distracted. The microscope was then brought in. A radical anterior discectomies were performed at C3/4. This included complete removal of the anterior annulus, nucleus, and posterior annulus. The posterior longitudinal ligament was removed as were the posterior osteophytes. Foraminotomies were then accomplished bilaterally. This was done using a high speed gaetano, kerrison rongeurs and curretes Once all of this was accomplished, the curved currette was used to check for any residual compression. The central canal was wide open as were the foramen. A high-speed bur was used to remove the cartilaginous endplates above and below the interspace. Bleeding cancellous bone was exposed. The disc space were measured and appropriate size cage were placed sterilely onto the field. Allograft graft was packed into the cages. The cage was then placed and there was good juxtaposition against the bleeding decorticated surfaces and good distraction of each interspace. Attention was brought to the next interspace. The Amberg pins were removed. Bone wax was used to prevent any bleeding from occurring at the pin sites. Next tension was brought to the C5-6 level. The space identified. The discectomy was completed using a drill there is significant collapse of the disc base. At this point I started to do corpectomy and it was tight all the way up to the graft of the C4-5 level. Ended up doing a complete corpectomy of C5. To decompress the dura and the nerve roots. This was done using high-speed bur curved curette and Kerrison rongeurs the bone and posterior longitudinal ligament were taken down. Dura was found to be in good repair. A size 23 corpectomy cage was placed is packed with allograft. The appropriate size anterior cervical locking plate was chosen and bent into gentle lordosis. Two screws were then placed into each of the vertebral bodies at C3, C4, and C6. The C5 vertebrae was skipped because it was taken out with a corpectomy. There was excellent purchase. A final x-ray was done confirming good position of the hardware and Cages. The locking screws were then applied, also with excellent purchase. Following a final copious irrigation, there was good hemostasis and no dural leaks. The carotid pulse was strong. The wounds were then closed in layers using 2-0 Vicryl suture for the platysma muscle, 2-0 Vicryl suture for the subcutaneous tissue, and 4-0 monocryl suture in a subcuticular skin closure. Glue was placed followed by application of a sterile dressing. The drain was hooked to bulb suction. A soft collar was applied. The patient was then carefully returned to the supine position on his hospital bed where he was reversed and extubated and taken to the recovery room having tolerated the procedure well.
--- NOTE | 2025-04-22 10:55 | XR_ITS ---
WS: [id number] C ARM fluoroscopy views of the cervical spine, 04/22/2025 Clinical Data: Surgery Comparison: Cervical spine, 12/30/2024 Findings: Dr. Brooks performed an anterior cervical disc fusion. XR/XR cervical spine 3V* [id number] Impression: Anterior cervical disc fusion.
[2025-04-22] MEDS: HYDROcodone-acetaminophen 5-325 mg Tablet PO ×2 (13:42→19:57)
--- NOTE | 2025-04-22 14:11 | ANE.PACU2 ---
Inpatient post-anesthesia follow up: Airway intact: Yes Vital signs: Temperature 99.1 F Pulse Rate 115 Respiratory Rate 24 Blood Pressure 147/96 Pulse Oximetry 95 Oxygen Delivery Me thod Nasal Cannula Oxygen Flow Rate 2 Fraction of Inspir ed Oxygen Hydration adequate: Yes Nausea and vomiting: No Pain level: 2 Mental status: Baseline
[2025-04-22] MEDS: ceFAZolin 2,000 mg SDV 2000 MG IVP ×2 (16:40→22:44)
--- OUTSIDE RECORDS SUMMARY | 2025-04-22 18:49 | XMS_ITS | Encounter Summary ---
Author Organization [facility] 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
--- OUTSIDE RECORDS SUMMARY | 2025-04-22 18:49 | XMS_ITS | Encounter Summary ---
Author Organization [facility] Address [address] [facility] Attn: Epic Prelude ADT POONAM MATA [address] Care Team Providers Care Payroll Technician Name Role Phone Unavailable Primary Care Provider Unavailabl e Encounter Details Date Type Department Care Team (Late st Contact Info) Description 02/24/2002 Outpatient Historical Fabrizio Cuello MD [address] [place] [address] [address] [place] [address] Social History Tobacco Use Types Packs/Day Years Used Date Smoking Tobacco: Never Assessed Sex and Gender Information Value Date Recorded Sex Assigned at Not on file 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
--- OUTSIDE RECORDS SUMMARY | 2025-04-22 18:49 | XMS_ITS | Encounter Summary ---
Author Organization [facility] Address [address] [address] [facility] [facility] [address] [place] [address] Phone Care Team Providers Care Advisory Services Associate Name Role Phone Samantha Vinson Primary Care Provider [phone] Reason for Visit * Reason Comments Med Refill Encounter Details Date Type Department Care Team (Late st Contact Info) Description 06/07/2020 Refill [facility] [address] [place] [address] Jessica Albert NP [address] [facility] [address] [place] [address] Social History Tobacco Use Types [...] st Contact Info) Description 06/29/2025 10:30 AM PRODUCTION WOOD CRAFTSMAN Office Visit [facility], [facility] [address] [place] [address] Jessica Albert, PATRICIA [address] [facility] [address] [place] [phone] documented as of this encounter Visit Diagnoses Not on filedocumented in this encounter Care Teams Advisory Services Associate Relationship Specialty Start Date End Date KarelSamantha [address] [place], [place] [id number] PCP - General 12/30/24 documented as of this encounter
--- OUTSIDE RECORDS SUMMARY | 2025-04-22 18:49 | XMS_ITS | Clinical Summary ---
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
--- OUTSIDE RECORDS SUMMARY | 2025-04-22 18:49 | XMS_ITS | Encounter Summary ---
Author Organization [email or web address] Address [address] [facility] [facility] [address] [place] [address] Phone Care Team Providers Care Vehicle Maintenance Supervisor Name Role Phone Samantha Vinson Primary Care Provider [phone] Reason for Visit * Reason Comments Med Refill Encounter Details Date Type Department Care Team (Late st Contact Info) Description 12/09/2019 Refill [facility] [address] [place] [address] Santy Arnold, PATRICIA [address] [facility] [address] [place] [address] Social History Tobacco Use Types [...] st Contact Info) Description 06/29/2025 10:30 AM PLUNKET NURSE Office Visit [facility], [facility] [address] [place] [phone] Jessica Albert NP [address] [facility] [address] [place] [phone] documented as of this encounter Visit Diagnoses Not on filedocumented in this encounter Care Teams Vehicle Maintenance Supervisor Relationship Specialty Start Date End Date Samantha Vinson [address] [place] [address] PCP - General 12/30/24 documented as of this encounter
--- OUTSIDE RECORDS SUMMARY | 2025-04-22 18:49 | XMS_ITS | Encounter Summary ---
Author Organization [facility] [employer] [facility] Address [address] [facility] Attn: Epic Prelude ADT POONAM MATA [address] Care Team Providers Care Senior Process Control Tech Name Role Phone Unavailable Primary Care Provider Unavailabl e Encounter Details Date Type Department Care Team (Late st Contact Info) Description 11/30/2000 Outpatient Historical Fabrizio Cuello MD [address] [place] [address] [address] [place] [address] Social History Tobacco Use Types Packs/Day Years Used Date Smoking Tobacco: Never Assessed Sex and Gender Information Value Date Recorded Sex Assigned at Not on file 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
--- OUTSIDE RECORDS SUMMARY | 2025-04-22 18:49 | XMS_ITS | Encounter Summary ---
Author Organization [facility] Address [address] [place] [address] Phone Care Team Providers Care Light Out Examiner Name Role Phone Samantha Vinson Primary Care Provider [phone] Reason for Visit * Reason Comments Med Refill Encounter Details Date Type Department Care Team (Late st Contact Info) Description 03/17/2019 Refill [facility] [address] [place] [address] Victor Manuel Calderon NP Social [...] (Late Contact Info) Description 06/29/2025 10:30 AM MARKETING OPERATIONS COORDINATOR Office Visit [facility] [address] [place] [phone] Jessica Albert, PATRICIA [address] [facility] [address] [place] [phone] documented as of this encounter Visit Diagnoses Not on filedocumented in this encounter Care Teams Light Out Examiner Relationship Specialty Start Date End Date Samantha Vinson [address] [place], [place] [id number] PCP - General 12/30/24 documented as of this encounter
--- OUTSIDE RECORDS SUMMARY | 2025-04-22 18:49 | XMS_ITS | Encounter Summary ---
Author Organization [facility] Address [address] [facility] Attn: Epic Prelude ADT HUGOESTELLE POONAM GARY [address] Care Team Providers Care Boring Machine Set Up Operator Jig Name Role Phone Unavailable Primary Care Provider Unavailabl e Encounter Details Date Type Department Care Team (Late st Contact Info) Description 12/18/2000 Inpatient Historical Fabrizio Cuello MD [address] [facility] [address] [place] [address] Social History Tobacco Use Types Packs/Day Years Used Date Smoking Tobacco: Never Assessed Sex and Gender Information Value Date Recorded Sex Assigned at Not on file Legal Sex Male 4:10 AM PRINTED CIRCUIT BOARD PCB 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
--- OUTSIDE RECORDS SUMMARY | 2025-04-22 18:49 | XMS_ITS | Encounter Summary ---
Author Organization [facility] Address [address] [place] [address] Phone Care Team Providers Care Bilingual Sales Representative Name Role Phone Samantha Vinson Primary Care Provider [phone] Reason for Visit * Reason Comments Med Refill Encounter Details Date Type Department Care Team (Late st Contact Info) Description 06/07/2021 [facility]ill [facility] [address] [place] [address] Duran Chinchilla MD Social History Tobacco Use Types Packs/Day Years [...] st Contact Info) Description 06/29/2025 10:30 AM HALFTONE OPERATOR Office Visit [facility], [facility] [address] [place] [phone] Jessica Albert NP [address] [facility] [address] [place] [phone] documented as of this encounter Visit Diagnoses Not on filedocumented in this encounter Care Teams Bilingual Sales Representative Relationship Specialty Start Date End Date Samantha Vinson [address] [place], [place] [id number] PCP - General 12/30/24 documented as of this encounter
--- OUTSIDE RECORDS SUMMARY | 2025-04-22 18:49 | XMS_ITS | Encounter Summary ---
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 Office Visit [facility] [address] [place] [phone] Jessica Albert NP [address] [facility] [address] [place] [phone] documented as of this encounter Procedures Procedure [...] procedure / Unknown 03/24/2019 Victor Manuel Calderon [facility] LAB URINE ORDERABLES Final Result Performing Organization Address [facility] Co de Phone Number [facility] [...] blood / Unknown 03/24/2019 Victor Manuel Calderon [facility] LAB BLOOD ORDERABLES Final Result Performing Organization Address City/[facility]/ZIP Co de Phone Number [facility] [...] / Unknown 03/24/2019 us Victor Manuel Calderon [facility] LAB BLOOD ORDERABLES Final Result [facility] documented in this encounter Visit Diagnoses Diagnosis Chronic kidney disease stage 3 (HCC) documented in this encounter Care Teams Information Services Assistant Relationship Specialty Start Date End Date Samantha Vinson [address] [place] [id number] PCP - General 12/30/24 documented as of this encounter
--- OUTSIDE RECORDS SUMMARY | 2025-04-22 18:49 | XMS_ITS | Encounter Summary ---
Author Organization [facility] Address [address] [facility] Attn: Epic Prelude ADT POONAM MATA [address] Care Team Providers Care Platform Architect Name Role Phone Unavailable Primary Care Provider Unavailabl e Encounter Details Date Type Department Care Team (Late st Contact Info) Description 02/18/2002 Outpatient Historical Fabrizio uCello MD [address] [place] [address] [address] [place] [address] Social History Tobacco Use Types Packs/Day Years Used Date Smoking Tobacco: Never Assessed Sex and Gender Information Value Date Recorded Sex Assigned at Not on file 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
--- OUTSIDE RECORDS SUMMARY | 2025-04-22 18:49 | XMS_ITS | Clinical Summary ---
Author Organization [facility] Address [address] [place] [address], [place] [address] Care Team Providers Care Hot Stick Man Name Role Phone Samantha Vinson Primary Care Provider [phone] Allergies Active Allergy Reactions Criticality Noted Date [...] mouth if needed Active ergocalciferol 1.25 MG (94812 UT) capsule TAKE 1 CAPSULE BY MOUTH [...] by mouth 1 (one) time each day 5 Active furosemide (LASIX) 40 MG tablet Take [...] 09/24/2018 Vitamin D below reference range 09/24/2018 Immunizations Immunization Administration Dates Next Due Influenza, [...] 36.1 C (97 F) 05/27/2020 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 Respiratory Rate - - Oxygen Saturation 94% [...] st Contact Info) Description 06/29/2025 10:30 AM HULL GRINDER Office Visit [facility] [address] [place] [phone] Jessica Albert NP [facility] [address] [phone] Health Maintenance Due Date Last Done [...] / Unknown 11/08/2021 8:09 AM CDT Narrative Bhargav LillianLEAH - 11/09/2021 5:01 PM CDT MICHEL, [facility] [place] [address] [facility].[id number] William Atkinson MD us Lilian Mcintyre ONCOLOGY NURSE LAB BLOOD ORDERABLES Final R esult from Last 3 Months or Most Recently Relevant to Health Maintenance Insurance [facility] Medicare Care Teams Hot Stick Man Relationship Specialty Start Date End Date Samantha Vinson [address] [place] [address] PCP - General 12/30/24
--- NOTE | 2025-04-22 22:44 | PC.NURSE ---
cefazoline IVAB not scanning-- manual scan
[2025-04-23] MEDS: HYDROcodone-acetaminophen 5-325 mg Tablet PO ×2 (01:41→05:55)
[2025-04-23] MEDS: ceFAZolin 2,000 mg SDV 2000 MG IVP (05:16)
[2025-04-23 05:33] VITALS: BP 151/95; PULSE 96; RESP 17; TEMP 36.6; O2SAT 96
[2025-04-23] MEDS: DAPAGLIFLOZIN 10 MG TABLET PO ×2 (05:53→05:56)
[2025-04-23] MEDS: verapamil ER 240 mg Tablet PO (05:53)
[2025-04-23] MEDS: insulin glargine 100 units/1 mL 64 UNIT SUBCUT (05:59)
[2025-04-23] MEDS: alum-mag-hydroxide-sime 30 mL UDC PO (06:02)
[2025-04-23 07:25] VITALS: BP 137/94; PULSE 91; RESP 15; TEMP 37.1; O2SAT 93
--- NOTE | 2025-04-23 08:20 | PM.DCS ---
Discharge Providers Date of Admission: 04/22/25 10:51 Date of Discharge: April 23, 2025 Attending Provider at Admission: Jun Brooks DO Attending Provider at Discharge: Jun Brooks DO Primary Care Provider: Samantha Vinson DO Reason for Visit Reason for Visit: M54.12 Physical Exam Narrative: Patient having some swallowing difficulty. But did eat half his breakfast. At this point hands are feeling a lot better drain has minimal output. Urinary Catheter Management: Link: Cath Placed During This Visit: yes Reason for Continuing Indwelling Catheter: Accurate Measurement of Urinary Output in Critically Ill Patients Urinary Catheter Date of Insertion: 04/22/25 Urinary Catheter Time of Insertion: 07:20 Discharge Data Studies Completed and Pending Completed Studies During Hospitalization Category Date Time Status XR cervical spine 3V* [id number] Routine Exams 04/22/25 10:55 Completed Radiology Impressions C-Arm Fluoroscopy 04/22/25 06:35 Impression: Anterior cervical disc fusion. Cervical Spine X-Ray 04/22/25 10:55 Impression: Anterior cervical disc fusion. Laboratory Results POC Glucose 255 mg/dL (70-110) H 04/23/25 05:40 Vitals Last Vital Signs Temp 98.8 F 04/23/25 07:25 Pulse 91 04/23/25 07:25 Resp 15 04/23/25 07:25 BP 137/94 04/23/25 07:25 Pulse Ox 93 04/23/25 07:25 O2 Del Method Nasal Cannula 04/23/25 07:25 O2 Flow Rate 3 04/23/25 07:25 Discharge Plan Discharge Patient Disposition: Home Condition: Stable Prescriptions: New hydrocodone-acetaminophen 5-325 mg tablet 1 - 2 tab PO .Q4-6H PRN (Reason: pain) 7 Days Qty: 42 0RF hydrocodone-acetaminophen 5-325 mg tablet 1 tab PO Q4H PRN (Reason: pain) 7 Days Qty: 42 0RF Continued (DME) blood-glucose meter [Accu-Chek Guide Glucose Meter] Misc See Rx Instructions .ROUTE .MEDSUPPLY Qty: 1 0RF Rx Instructions: As directed (DME) lancets [Accu-Chek Fastclix Lancet Drum] Misc See Rx Instructions .ROUTE .MEDSUPPLY Qty: 200 3RF Rx Instructions: three times/day (DME) Diabetic shoes with molded inserts See Rx Instructions .Route .MEDSUPPLY Qty: 1 0RF Rx Instructions: As directed fenofibrate nanocrystallized 145 mg tablet 145 mg PO DAILY ergocalciferol (vitamin D2) 50,000 unit capsule 50,000 unit PO Q30D Rx Instructions: FIRST SUNDAY OF THE MONTH (DME) pen needle, diabetic 31 gauge x 1/ needle See Rx Instructions .Route Qty: 100 3RF Rx Instructions: As directed (DME) Diabetic shoes with 3 pairs of inserts See Rx Instructions .Route .MEDSUPPLY Qty: 1 0RF Rx Instructions: As directed ketoconazole 2 % shampoo See Rx Instructions .ROUTE .COMPLEX Rx Instructions: Apply to scalp 2 or 3 times weekly, let sit 5 minutes, then rinse. prednisone 10 mg tablet See Rx Instructions PO .COMPLEX PRN (Reason: joint pain) Qty: 30 1RF Rx Instructions: Take 1 tablet by mouth daily for 3-7 days as needed for joint pain flare. dapagliflozin propanediol [Farxiga] 10 mg tablet 10 mg PO DAILY Qty: 90 3RF nitroglycerin [Nitrostat] 0.4 mg tablet, sublingual 0.4 mg SUBLINGUAL DIRECTED PRN (Reason: CHEST PAIN) Qty: 25 3RF magnesium chelate, malate 125 mg magnesium capsule 125 mg PO BID psyllium husk [Fiber (psyllium husk)] 0.52 gram capsule 0.52 g PO BID acyclovir 5 % ointment 1 applic topical 6XD PRN (Reason: fever blisters and rash areas) acetaminophen [Tylenol Arthritis Pain] 650 mg tablet extended release 650 mg PO Q12H Mounjaro 12.5 mg/0.5 mL pen injector 12.5 mg SUBCUT Q7D (DME) Diabetic shoes See Rx Instructions .ROUTE .MEDSUPPLY Qty: 1 0RF Rx Instructions: With 3 pairs of inserts made by HOME ondansetron HCl 4 mg tablet 4 mg PO .prn nausea Xarelto 20 mg tablet 20 mg PO DAILY (DME) Diabetic shoes with inserts See Rx Instructions .Route .MEDSUPPLY Qty: 1 0RF Rx Instructions: As directed (DME) pen needle, diabetic [BD Gabriella 2nd Gen Pen Needle] 32 gauge x needle See Rx Instructions .Route Qty: 100 3RF Rx Instructions: As directed (DME) FreeStyle Huma 2 [place] Misc See Rx Instructions .Route Qty: 1 0RF Rx Instructions: Check BS 4 -6 times a day. (DME) FreeStyle Huma 2 Sensor Kit See Rx Instructions .Route Qty: 6 3RF Rx Instructions: Change every 14 days. (DME) Accu-Chek Guide test strips Strip See Rx Instructions .ROUTE .COMPLEX Qty: 300 0RF Dose Instruction: USE 1 THREE TIMES DAILY *E11.65* Rx Instructions: USE 1 THREE TIMES DAILY *E11.65* eplerenone 25 mg tablet 25 mg PO DAILY Qty: 90 3RF furosemide [Lasix] 40 mg tablet 20 mg PO BID Qty: 90 3RF Rx Instructions: Take in AM and at 2 PM metoprolol tartrate 50 mg tablet 100 mg PO BID Qty: 360 3RF aspirin 81 mg tablet,delayed release (DR/EC) 81 mg PO DAILY Qty: 90 2RF pantoprazole 40 mg tablet,delayed release (DR/EC) 40 mg PO BID Qty: 180 3RF hydralazine 25 mg tablet 25 mg PO TID Qty: 270 4RF triamcinolone acetonide 0.1 % cream 1 applic topical BID PRN (Reason: joint inflamation) diclofenac sodium 1 % gel 4 g topical QID PRN (Reason: Pain, Mild) Rx Instructions: 4 grams topically 4 times daily as needed ketoconazole 2 % cream See Rx Instructions .ROUTE .COMPLEX Rx Instructions: APPLY TWICE DAILY TO AFFECTED AREAS ON FACE FOR 4 WEEKS THEN NEEDED. isosorbide mononitrate 30 mg tablet extended release 24 hr 60 mg PO DAILY allopurinol 100 mg tablet 200 mg PO QPM leflunomide 20 mg tablet 20 mg PO QAM verapamil 240 mg tablet extended release 240 mg PO QAM insulin lispro 100 unit/mL insulin pen 50 unit SUBCUT TID ezetimibe 10 mg tablet 10 mg PO DAILY metolazone 2.5 mg tablet 2.5 mg PO DAILY PRN (Reason: weight gain) Qty: 30 2RF Rx Instructions: Take for weight gain greater than 3 pounds in 24 hours, or 5 pounds in a week. potassium chloride [Klor-Con M20] 20 mEq Tablet,Er Particles/Crystals 20 meq PO BID Qty: 60 2RF insulin glargine [Lantus Solostar U-100 Insulin] 100 unit/mL (3 mL) insulin pen 64 unit SUBCUT DAILY Discharge Order = DC NOW: Discharge Order (Routine); Ordered 04/23/25 Ordered By: Jun Brooks Discharge Diet: Advance as tolerated Discharge Activity: Limit activity as instructed Patient Instructions: Acute Wound Care (DC), Opioid Safety, Post Anesthesia Care, Patient Portal & Jamey Instructions Activity Restrictions/Additional Instructions: Thank you for choosing [facility] for your care! The following is a list of instructions, from your provider, to follow upon your discharge to ensure you have the optimal recovery from your recent injury or surgery. Anterior Cervical Discectomy and Fusion: What to Expect at Home Your Recovery Follow-up care is a briceno part of your treatment and safety. Be sure to make and go to all appointments, and call your doctor if you are having problems. If you do not already have a follow-up appointment made, call office in the next 1-3 days to make follow up appointment for 2 weeks at [phone]. It is also a good idea to know your test results and keep a list of the medicines you take. You can expect your neck to feel stiff or sore after surgery. This should improve in the weeks after surgery. But it may take 4 to 6 months for you to get better completely. You may have trouble sitting or standing in one position for very long and may need pain medicine in the weeks after your surgery. It may take 4 to 6 weeks to get back to your usual activities, but it may depend on what kind of surgery you had. Your throat will feel sore and it may be difficult to swallow for the first 3 days after your surgery. As long as you can get liquids down without difficulty, this should slowly improve, otherwise call our office or seek medical attention if it becomes increasingly difficult to get anything down including liquids. Avoid hot liquids for first 3-5 days. Soothing foods/liquids such as jello, pudding, and luke warm soups are recommended until swallowing improves. Staying elevated will also help, it's advised you keep propped up at while sleeping to help reduce the swelling. You may use an ice pack directly on your incision or around it on the front of your neck, using a cloth to protect your skin; and a heating pad to the back of your neck as needed. Do not use over the counter anti-inflammatory medications (Ibuprofen, Motrin, Aleve, Advil, etc) Taking these meds after having a fusion can delay fusion rates, we recommend you avoid them for the first 3 [address] after your surgery[address] Dr. Brooks may advise you to work with a physical therapist to strengthen the muscles around your neck and back - this will be discussed at your follow - up appointments. The pain or numbness you were having in your arms before surgery should get better or go away completely. This care sheet gives you a general idea about how long it will take for you to recover. But each person recovers at a different pace. Follow the steps below to get better as quickly as possible. How can you care for yourself at home? Activity ? Rest when you feel tired. Getting enough sleep will help you recover. ? Try to walk each day. Start by walking a little more than you did the day before. Bit by bit, increase the amount you walk. Walking boosts blood flow and helps prevent pneumonia and constipation. Walking may also decrease your muscle soreness after surgery. ? No lifting anything that is more that 5 pounds. This may include heavy grocery bags and milk containers, a heavy briefcase or backpack, cat litter or dog food bags, a child, or a vacuum lamp cleaner. ? Avoid strenuous activities, such as bicycle riding, jogging, weightlifting, or aerobic exercise, until your doctor says it is okay. ? Do not drive until your follow-up visit after your surgery, or until your doctor says it isokay. ? Avoid taking long car trips for 2 to 4 weeks after surgery. Your neck may become tired and painful from sitting too long in one position. ? You will probably need to take 4 to 6 weeks off from work. It depends on the type of work you do and how you feel. ? You may have sex as soon as you feel able, but avoid positions that put stress on your neck or cause pain. Diet ? You can eat your normal diet. If your stomach is upset, try bland, low-fat foods like plain rice, broiled chicken, toast, and yogurt ? Drink plenty of fluids. If you have kidney, heart, or liver disease and have to limit fluids, talk with your doctor before you increase the amount of fluids you drink. ? You may notice that your bowel movements are not regular right after your surgery. This is common. Try to avoid constipation and straining with bowel movements. You may want to take a fiber supplement every day. If you have not had a bowel movement after a couple of days, ask your doctor about taking a mild laxative. Medicines ? Take pain medicines exactly as directed. 1. If Dr. Brooks gave you a prescription medicine for pain, take lt as prescribed. 2. Do not take two or more pain medicines at the same time unless the doctor told you to. Many pain medicines have acetaminophen, which is Tylenol. Too much acetaminophen {Tylenol) can be harmful. 3. If you think your pain pill is making you sick to your stomach: 4. Take your pills after meals (unless your doctor has told you not to). 5. Ask your Dr. for a different pain pill. Incisioncare ? Remove your dressing 48hours after your surgery. Ok to shower and get the incision wet. Do not overtly wash your incision. When done, pad dry, leave open to air thereafter. Avoid creams and ointments directly on your incision. ? Your sutures in the incision will dissolve and fall out on their own. ? Keep the area clean and dry. You may cover it with a gauze bandage if it weeps or rubs against clothing; if you choose to do this, change the dressing everyday. Other instructions ? Use a heating pad, hot water bottle, or gentle massage on your back to reduce stiffness. Avoid putting heat on your incision When should you call for help? ? Call 911 anytime you think you may need emergency care. For example, call if: ? You pass out (lose consciousness). ? You have sudden chest pain and shortness of breath, or you cough upblood. ? You cannot swallow. ? You have severe pain in your neck or back. ? Call your Dr. or seek immediate medical care if: ? You have pain that does not get better after you take pain pills. ? You have loose stitches, or your incision comes open. ? You have blood or fluid draining from the incision. ? You have signs of infection, such as: 1. Increased pain, swelling, warmth, or redness. 2. Red streaks leading from the site. 3. Pus draining from the site. 4. Swollen lymph nodes in your neck or armpits. 5. A fever. ? You have severe pain in your arms. ? You have new or increased weakness or numbness in your arms. ? Watch closely for any changes in your health, and be sure to contact your doctor if: ? You do not have a bowel movement after taking a laxative. Discharge Attestations Time Spent in Discharge Care*: less than 30 min Quality Metrics Clinical Quality Measures [ No reported AMI, CVA or VTE this stay] Coding Level of Care Code Acute Code for Chg Beti
--- NOTE | 2025-04-23 09:43 | PC.CHAP ---
Pastoral Care Encounter/Spiritual Assessment Type of Contact [x] Declined unhairer visit [] Patient/Family/Request visit [] Outpatient visit [] Follow-up visit [] Physician referral [] Code/Alert [] Routine visit [] Staff referral [] Actively dying [] Patient sleeping [] Family support [] [] Out of room [] Palliative care [] [] Receiving care in room [] Pre-surgical visit [] Trauma [] Long length of stay [] ICU visit [] Other: Relational/Emotional Strength [] Patient feels connected with others/family/visitors/staff [] Distress [] Loneliness/isolation [] Abandonment Spirituality of Patient [] Person of Alexandra [] Attends Sikhism of their Alexandra [] Believes in Prayer [] Reads Bible or Jainism materials [] There are Spiritual issues to be addressed Service Technician Interventions [] Prayer [] Active listening [] Non-anxious presence [] Spiritual/emotional support [] Crisis/trauma care [] Spiritual counseling [] Bereavement support [] Provided bereavement packet [] Provided Bible/devotional materials [] Provided toy/stuffed animal, coloring book to patient or family member [] Provided Communion [] Anointing/[place] [] Salvation [] Completed spiritual assessment [] Other: Impact on Illness or Injury [] Angry [] Fearful [] Anxious [] Often cries [] Exhaustion [] Unable to work [] Unable to attend voodoo [] Unable to walk/stand [] Unable to read [] Unable to drive [] Unable to eat/drink [] Unable to sleep [] Unable to be with family [] Patient intubated [] Other: Summary Time spent with patient
--- NOTE | 2025-04-23 10:47 | PC.NURSE ---
HEMOVAC and mandel catheter removed per Dr Brooks's orders. Patient tolerated removal of both tubes well. Discharge education provided to patient and family. All questions answered. Patient safely discharged and wheeled off the unit by nursing staff.
== END 2025-04-23 10:20 | disposition home or self-care (01) | DRG 472 ==
LOC: MEDSURG 17:36
PROVIDERS: Admitting Provider Orthopaedic Surgery; PCP Family Medicine; Visit Provider Orthopaedic Surgery
PROC: 0RB30ZZ Excision of Cervical Vertebral Disc, Open Approach (ICD-10-PCS; CPT 22551; principal; 2025-04-22 07:00)
DX: M48.02 Spinal stenosis, cervical region (principal); G99.2 Myelopathy in diseases classified elsewhere; I13.0 Hypertensive heart and chronic kidney disease with heart failure and stage 1 through stage 4 chronic kidney disease, or unspecified chronic kidney disease; I50.30 Unspecified diastolic (congestive) heart failure; Z68.43 Body mass index [BMI] 50.0-59.9, adult; M54.12 Radiculopathy, cervical region; R13.10 Dysphagia, unspecified; K21.9 Gastro-esophageal reflux disease without esophagitis; E11.22 Type 2 diabetes mellitus with diabetic chronic kidney disease; N18.30 Chronic kidney disease, stage 3 unspecified; E11.40 Type 2 diabetes mellitus with diabetic neuropathy, unspecified; I48.91 Unspecified atrial fibrillation; G47.33 Obstructive sleep apnea (adult) (pediatric); K57.90 Diverticulosis of intestine, part unspecified, without perforation or abscess without bleeding; E55.9 Vitamin D deficiency, unspecified; E66.01 Morbid (severe) obesity due to excess calories; M10.9 Gout, unspecified; M06.9 Rheumatoid arthritis, unspecified; Z79.4 Long term (current) use of insulin; Z79.52 Long term (current) use of systemic steroids; Z79.85 Long-term (current) use of injectable non-insulin antidiabetic drugs; Z79.01 Long term (current) use of anticoagulants; Z79.82 Long term (current) use of aspirin; Z86.16 Personal history of COVID-19; Z82.49 Family history of ischemic heart disease and other diseases of the circulatory system; E78.5 Hyperlipidemia, unspecified; D63.1 Anemia in chronic kidney disease; E89.0 Postprocedural hypothyroidism
CPT/HCPCS: 36416; 51702; 72040; 76000; 82962; 96372; 97110; 97161; A4649; C1713; C1763; C9359; J0690; J1171; J1815; J2250; J2405; J2704; J3010; J7030; J9999

== ENCOUNTER → 2025-05-05 13:30 | Outpatient (BNVA) | payer MEDICARE, SELFPAY | PROVIDERS: PCP Family Medicine; Visit Provider Orthopaedic Surgery | DX: Z98.890 Other specified postprocedural states (principal) | CPT/HCPCS: 99024 ==